=== PATIENT | male | born 1950 | race Caucasian/White ===

== ENCOUNTER 2021-08-31 19:45 | Inpatient (IN) ==
--- NOTE | 2021-08-31 21:09 | CT Scan Report ---
CT OF THE ABDOMEN AND PELVIS WITHOUT CONTRAST CLINICAL HISTORY: CHAPARRITA, SOB, hematuria COMPARISON STUDY: Renal ultrasound June 22, 2020. TECHNIQUE: Axial images of the abdomen and pelvis were obtained without IV contrast. Images were revi ewed in the axial, sagittal, and coronal planes. Automated exposure control was utilized for the ancelmo dy. A dose lowering technique was utilized adhering to the principles of ALARA. FINDINGS: Lung bases are unremarkable. A 7 mm proximal left ureteral calculus results in mild to mode rate left hydronephrosis. There is moderate left perinephric stranding. There is a punctate left uret eropelvic junction calculus. Left renal calculi measure up to 6 mm. A few punctate right renal calcul i are present. There are are no right ureteral calculi. There is no right hydronephrosis. Prostate is mildly enlarged, measuring 4.9 cm in transverse dimension. Evaluation of the remainder of the abdome n and pelvis is suboptimal as unenhanced exam. Hepatic steatosis is noted. A few hepatic lesions desirae ure water attenuation. The largest is a 5.4 cm segment 5 lesion. These favor cysts. The spleen, adren al glands and pancreas are unremarkable. The small left adrenal nodule is probably benign. There is n o biliary or pancreatic ductal dilatation. There is no evidence for a bowel obstruction. No acute fra cture or suspicious lesion is identified within the visualized skeletal structures. IMPRESSION: 1. 7 mm proximal left ureteral calculus which results in mild to moderate left hydronephrosis with pe rinephric stranding. Punctate left ureteropelvic junction calculus. 2. Bilateral nephrolithiasis. 3. Hepatic steatosis. Several suspected hepatic cysts. ACT 112: Negative or not required by law. Electronically signed by: Rudolph Eldridge M.D. 08/31/2021 9:07 PM
[2021-08-31 21:10] LABS: Influenza A virus by PCR Negative (Neg); Influenza B virus by PCR Negative (Neg); RSV by PCR Negative (Neg); SARS CoV2 RNA(COVID-19) InHosp NEGATIVE (Negative)
[2021-08-31] MEDS ORDERED: METOPROLOL TARTRATE 25 MG TAB PO STA (21:27)
[2021-08-31] MEDS ORDERED: ASPIRIN CHEW 324 MG PO STA (21:28)
[2021-08-31] MEDS ORDERED: Heparin IV Adult Wt-Based Standard *NO* Bolus Protocol ONE (21:46)
--- NOTE | 2021-08-31 22:03 | History & Physical Report ---
Date of Service August 31, 2021 Assessment & Plan (1) Atrial fibrillation with rapid ventricular response: (2) Hydronephrosis with renal and ureteral calculus obstruction: (3) CHAPARRITA (acute kidney injury): (4) CARRI (obstructive sleep apnea): (5) Hyperlipidemia: (6) Hypertension: (7) Pyelonephritis: Plan: 70 yo M Hx nephrolithiasis, CARRI, moderate , HTN, HLD admitted for pyelonephritis, CHAPARRITA, obstructive nephrolithiasis, and new-onset AFib with RVR. AFib with RVR: On presentation with HR tachycardic in low 100s, sensation of dyspnea. EKG in AFib with RVR. Echo performed in March 2021 with mildly dilated left atrium, normal LVEF, mild- moderate valvular disease. Given metoprolol 25mg PO x1 in ER. Lopressor q6h prn HR >120 ordered. Heparin gtt initiated; to be held several hours prior to Urology intervention. New onset, in the setting of pyelonephritis 2/2 obstructive renal calculus. Treatment of such outlined below. Patient's ultimate need for PO medications for AFib to be based upon if syndrome resolves with treatment of pyelonephritis. CHADsVASc score of 2. Suspect patient's sensation of dyspnea will improve with rate control. Patient is not hypoxic. Pyelonephritis, obstructive nephrolithiasis, CHAPARRITA: Evaluation by Urology office yesterday with elevated WBC count, CHAPARRITA. CTAP shows obstructive 7mm LEFT renal calculus with mild to moderate hydronephrosis and streaking suggestive of pyelonephritis. UCx from 08/30 growing gram negative bacilli, speciation to follow. Patient has grown E. coli sensitive to cephalosporins in previous urine cultures. Labwork from ER today is pending. Blood cultures ordered, will begin ceftriaxone 2g IV q24h once BCx collected. CHAPARRITA suspected to be post-renal considering obstructive LEFT renal calculus. Will give gentle IV fluids while NPO overnight. Tamsulosin daily. Holding chlorthalidone, amlodipine/benazepril, ibuprofen. Urology consulted and appreciate recommendations. NPO at midnight for possible intervention. Hypokalemia: K 3.4 on yesterday's labs. Given 40meq KCl PO in ER, will continue with 40meq daily until repleted. HTN: Continue amlodipine/benazepril, chlorthalidone. BP normotensive at this time. HLD: Continue atorvastatin. CARRI: CPAP qHS. Code Status: FULL CODE FEN: NPO at midnight, NSS at 100cc/hr x1 bag DVT ppx: Heparin gtt Dispo: Telemetry History of Present Illness Chief Complaint: chills, flank / abdominal pain, SOB Primary Care Provider: Diego Pan MD 70 yo M Hx nephrolithiasis, CARRI, moderate , HTN, HLD presented to the ER for chills and flank/abdominal pain as well as sensation of breathlessness. He was evaluated by Urology yesterday and had labwork and UCx ordered. In the ER patient was saturating well on room air, afebrile, tachycardic to low 100s. EKG showed AFib with RVR (no history of in the past). Labwork pending from ER visit, however notable from labwork 08/30/21 for WBC count of 16.83, K 3.4, creatinine 2.17 (baseline 1.0), UCx growing gram negative bacilli. CTAP showed 7 mm proximal left ureteral calculus with mild-moderate left hydronephrosis with perinephric stranding. Patient was given metoprolol 25mg PO and hospitalist service was consulted for admission. Patient at time of my interview denies flank or abdominal pain, chest pain, nausea or recent vomiting, diarrhea, measured fevers. He endorses some sensation of SOB with ambulation. He also notes some intermittent palpitations. Allergies Allergy/AdvReac Type Severity Reaction Status Date / Time No Known Allergies Allergy Unknown Verified 08/31/21 21:29 Home Medications Medication Instructions Recorded Confirmed Type glucosamine [id number] 1 tab PO QAM 02/19/19 08/31/21 History ellis 1,500 mg-400 unit-100 mg tablet (Osteo Bi-Flex (5-Loxin)) rydrospn-kwj-fgkav acid 0.4 1 tab PO QAM 02/19/19 08/31/21 History mg-lycopene 300 mcg-lutein 250 mcg tablet (Centrum Silver) omega-3 acid ethyl esters 1 gram 1 cap PO QAM cap 07/02/19 08/31/21 History capsule aspirin 81 mg chewable tablet 81 mg PO QAM 02/21/20 08/31/21 History tamsulosin 0.4 mg capsule (Flomax) 0.4 mg PO HS #90 cap 11/16/20 08/31/21 Rx atorvastatin 40 mg tablet 40 mg PO DAILY #90 tab 11/23/20 08/31/21 Rx amlodipine 10 mg-benazepril 40 mg 1 cap PO QAM #90 cap 01/25/21 08/31/21 Rx capsule (Lotrel) chlorthalidone 25 mg tablet 25 mg PO QAM #90 tab 05/11/21 08/31/21 Rx acetaminophen 500 mg tablet 1,000 mg PO Q6H PRN 08/31/21 08/31/21 History (Tylenol Extra Strength) ibuprofen 200 mg tablet 400 mg PO Q6H PRN 08/31/21 08/31/21 History Past Med/Surg History Medical History (Updated 09/01/21 @ 09:22 by Aaron Sloan MD) Aortic stenosis moderate (KATHRYN 1.43cm2, MG 23.9mmhg) per 02/2020 echo Apnea, sleep CPAP BPH (benign prostatic hyperplasia) Carotid artery stenosis Complex renal cyst per ultrasound, scheduled for repeat in 1 yr Hyperlipidemia Hypertension Irregular sleep-wake rhythm, nonorganic origin Morbid obesity Nocturnal hypoxemia Osteoarthritis 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 Other No family history of adverse response to anesthesia Denies family history of Ovarian cancer Prostate cancer Myocardial infarction Lung cancer Colorectal cancer Social History Smoking Status: Former smoker Tobacco Type: Cigarettes Age Started Using Tobacco: 14; Age Quit Using Tobacco: 38; packs per day: 1.5; Years Smoked: 24; Second Hand Exposure: No; Do You Dip or Chew Tobacco: No; Hx Alcohol Use: No Hx Substance Use: No Preferred Language: Yoruba Communication Ability: Effective Visual Impairment: Limited Hearing Ability: Normal Mail Order Clerk Required: Yes Beliefs That Will Affect Care: None marital status: Current Living Situation: Spouse current occupational status: retired How many Children do You have: 1 Other Information That Helps Us Care for You: No Feels Safe at Home: Yes Safety Concerns: Feels Safe At This Time Childhood Exposure to Second-Hand Smoke: Yes caffeine: Yes (1 cup of coffee daily ) Dental Care, Regularly: Yes Physical Activity Frequency: 3-4 Times per Week Physical Activity Frequency Comment: walks Seatbelt Use: always Sunscreen Use: No Assistive Devices: CPAP Review of Systems Review of Systems: All systems reviewed & are unremarkable except as noted in HPI & below Constitutional: + chills and + malaise; no fever Respiratory: + dyspnea; no cough Cardiovascular: + palpitations; no chest pain and no edema Gastrointestinal: no abdominal pain, no constipation and no diarrhea/loose stools Genitourinary: + difficulty urinating (reports difficulty starting stream last few days) Physical Exam Constitutional: WD/WN, vitals as above Eyes: PERRL, conjunctivae normal, anicteric sclerae ENMT: external ear and nose normal, oropharynx normal Neck: normal visual inspection Respiratory: normal respiratory effort, lungs clear to auscultation Cardiovascular: Rate/Rhythm: + tachycardic and + irregularly irregular Heart Sounds: + murmur (RUSB 2/6 murmur) Extremities: no edema Gastrointestinal (Abdomen): normal bowel sounds, soft, nontender, no hepatosplenomegaly Musculoskeletal: no cyanosis or clubbing, extremities motor strength 5/5 Skin: no rashes, warm and dry Neurologic: AAOx3, normal speech. Bilateral UE, LE, and face without sensory or motor deficits. No tremor. Psychiatric: A+Ox3, euthymic affect Results & Data Results & Data ([facility]) Vital Signs (Past 12 Hours) Vital Signs Temp Pulse Pulse Resp BP BP Pulse Ox 08/31/21 21:47 105 H 22 114/87 96 08/31/21 20:16 36.9 C 103 H 24 144/82 H 94 Code Status & VTE Plan VTE Prophylaxis Plan VTE Prophylaxis will be ordered: Yes Supervising Physician Co-Signing Physician Notes Attending addendum: I have physically seen this patient, have supervised the medical residents activities, and agree with the H&P unless as otherwise noted. Assessment and Plan: Atrial fibrillation with RVR- Telemetry admission Lopressor 5 mg IV every 6 hours as needed heart rate greater than 120 Heparin drip low-dose per protocol Likely associated with physiologic stress 7 mm proximal left ureteral calculus with moderate left hydronephrosis- N.p.o. Ceftriaxone 2 g IV daily Follow urine culture sensitivity Pain management Increase tamsulosin from 0.4 to 0.8 mg at bedtime Consult urology Remaining orders and notations as noted Resident Activity Tracking Resident Involvement: Resident Care Provided Care Provided: Adult Hospital Medicine (1) Hyperlipidemia Hyperlipidemia type: pure hypercholesterolemia Qualified Code(s): E78.00 - Pure hypercholesterolemia, unspecified; E78.0 - Pure hypercholesterolemia (2) Hypertension Hypertension type: essential hypertension Qualified Code(s): I10 - Essential (primary) hypertension
--- NOTE | 2021-08-31 22:08 | Emergency Department Note ---
Impression & Plan Atrial fibrillation with rapid ventricular response, Hematuria, New onset atrial fibrillation, Hydronephrosis with renal and ureteral calculus obstruction, CHAPARRITA (acute kidney injury) ED Provider Note CHIEF COMPLAINT: Shortness of breath, hematuria HISTORY OF PRESENT ILLNESS: This 70-year-old male patient presents to the emergency department with complaints of shortness of breath and hematuria. Patient states he developed some hematuria five or six days ago but it resolved within the last 48 hours. He noticed some left lower back discomfort that has been controlled with some Tylenol and ibuprofen. The patient has applied ice to the region and has not thought much of it. Patient did contact his urologist regarding hematuria and laboratory work and CAT scan was ordered. CAT scan is set for 2 days from now. Patient feels as though the shortness of breath has been progressive. He denies any fevers but states he does have chills and sweats. He denies any significant chest pain or coughing but states he has to stop with any exertion such as just walking to the bathroom. Patient denies any nausea or vomiting. He denies taking any blood thinners and denies any history of atrial fibrillation. REVIEW OF SYSTEMS: A review of systems was performed with positives and pertine nt negatives listed in the history of present illness. 10 systems were reviewed and are otherwise negative. ALLERGIES: see below MEDICATIONS: see below PMH: see below SOCIAL HISTORY: see below DDx: Reactive airway disease, pneumonia, pneumothorax, COPD, CHF, infections, cardiac ischemia, pulmonary embolism, musculoskeletal, gastrointestinal, kidney stone, UTI, renal mass as well as other pathologies. PHYSICAL EXAM: Vital signs reviewed. General: Well-appearing 70-year-old male, in no significant distress. HEENT: No scleral icterus, PERRLA, neck supple. Atraumatic. Cardiovascular: Irregular fairly rate controlled, no extra sounds.? Systolic ejection murmur Pulmonary: Clear to auscultation bilaterally, normal work of breathing. Abdomen: Soft, obese, nontender, nondistended, positive bowel sounds. Musculoskeletal: Atraumatic, no peripheral edema. Neurologic: Patient awake alert and oriented x 3, speech is clear Skin: Warm, dry, no rash EMERGENCY DEPARTMENT COURSE/MDM: This patient was evaluated and appeared to be in no significant distress. Patient was first seen in the waiting room as there was excessive volume and inpatient holds for the emergency department due to the COVID-19 pandemic. Patient was noted to have an irregular heartbeat on exam, EKG confirms new onset atrial fibrillation. Given that the patient was not in a position to be on the hall monitor, patient was given p.o. aspirin and metoprolol. CT imaging of the abdomen and pelvis was performed and reveals a 7 mm left ureteral calculus that is obstructing. This would explain the patient's elevated creatinine on laboratory work performed yesterday and hematuria. Patient will require hospitalization for new onset atrial fibrillation in addition to CHAPARRITA related to the obstructing stone. Patient's case was discussed with the hospitalist service who will evaluate the patient for admission and further management. Patient is aware of the plan and agrees. MONITORING: An order for cardiac monitoring was placed and the patient is noted to be in a atrial fibrillation at 105 beats per minute. RADIOLOGY: See below EKG: Atrial fibrillation at 96 bpm, PVC vs aberrantly conducted complexes. prolonged QT at 495. 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 Other No family history of adverse response to anesthesia Denies family history of Ovarian cancer Prostate cancer Myocardial infarction Lung cancer Colorectal cancer Social History Smoking Status: Former smoker Tobacco Type: Cigarettes Age Started Using Tobacco: 14; Age Quit Using Tobacco: 38; packs per day: 1.5; Years Smoked: 24; Second Hand Exposure: No; Hx Alcohol Use: Yes Alcohol type: wine Alcohol type Comment: 1-2 drinks weekly, "if that" Hx Substance Use: No Preferred Language: Turkish Communication Ability: Effective Visual Impairment: Limited Hearing Ability: Normal Musical String Maker Required: No Beliefs That Will Affect Care: None marital status: Current Living Situation: Significant Other current occupational status: retired How many Children do You have: 1 Feels Safe at Home: Yes Childhood Exposure to Second-Hand Smoke: Yes caffeine: Yes (1 cup of coffee daily ) Dental Care, Regularly: Yes Physical Activity Frequency: 3-4 Times per Week Physical Activity Frequency Comment: walks Seatbelt Use: always Sunscreen Use: No Assistive Devices: CPAP and Glasses Allergies Allergies Allergy/AdvReac Type Severity Reaction Status Date / Time No Known Allergies Allergy Unknown Verified 08/31/21 21:29 Home Meds Home Medications Medication Instructions Recorded Confirmed glucosamine [id number] 1 tab PO QAM 02/19/19 08/31/21 ellis 1,500 mg-400 unit-100 mg tablet (Osteo Bi-Flex (5-Loxin)) sryxtzoj-eus-lgkeo acid 0.4 1 tab PO QAM 02/19/19 08/31/21 mg-lycopene 300 mcg-lutein 250 mcg tablet (Centrum Silver) omega-3 acid ethyl esters 1 gram 1 cap PO QAM cap 07/02/19 08/31/21 capsule aspirin 81 mg chewable tablet 81 mg PO QAM 02/21/20 08/31/21 acetaminophen 500 mg tablet 1,000 mg PO Q6H PRN 08/31/21 08/31/21 (Tylenol Extra Strength) ibuprofen 200 mg tablet 400 mg PO Q6H PRN 08/31/21 08/31/21 Previous Rx's Medication Instructions Recorded tamsulosin 0.4 mg capsule (Flomax) 0.4 mg PO HS #90 cap 11/16/20 atorvastatin 40 mg tablet 40 mg PO DAILY #90 tab 11/23/20 amlodipine 10 mg-benazepril 40 mg 1 cap PO QAM #90 cap 01/25/21 capsule (Lotrel) chlorthalidone 25 mg tablet 25 mg PO QAM #90 tab 05/11/21 Results & Data (ED) Vital Signs Vital Signs - 24 hr 08/31/21 20:16 08/31/21 21:47 Temperature 36.9 C Temperature Source Temporal Artery Scan Pulse Rate 103 H Pulse Rate [Finger] 105 H Respiratory Rate 24 22 Blood Pressure 144/82 H Blood Pressure [Left Arm] 114/87 Blood Pressure Mean 102 Blood Pressure Mean [Left Arm] 96 Pulse Oximetry 94 96 Oxygen Delivery Method Room Air Sepsis Recent Fever Within 48 Hours No Sepsis New/Unexplained Change in Mental Status No Sepsis Action Taken by Nursing Adv Provider Notified Home Medications Current Medication List: was personally reviewed by me Laboratory Data Attestation: I reviewed the patient's lab results. Lab Results 08/31/21 Range/Units 20:21 SARS-CoV-2 (PCR) NEGATIVE (Negative) Influenza Type A (PCR) Negative (Neg) Influenza Type B (PCR) Negative (Neg) RSV (RT-PCR) Negative (Neg) Administered Medications Discontinued Medications Metoprolol Tartrate (Metoprolol Tartrate 25 Mg Tab) 25 mg PO NOW STA Stop: 08/31/21 21:28 Last Admin: 08/31/21 21:46 Dose: 25 mg Documented by: [id number] Imaging Data My Impression: Chest x-ray to my interpretation reveals mild pulmonary vascular congestion. Radiologist's Impression: Abdomen/Pelvis CT 08/31/21 20:39 CT OF THE ABDOMEN AND PELVIS WITHOUT CONTRAST CLINICAL HISTORY: CHAPARRITA, SOB, hematuria COMPARISON STUDY: Renal ultrasound June 22, 2020. TECHNIQUE: Axial images of the abdomen and pelvis were obtained without IV contrast. Images were reviewed in the axial, sagittal, and coronal planes. Automated exposure control was utilized for the study. A dose lowering technique was utilized adhering to the principles of ALARA. FINDINGS: Lung bases are unremarkable. A 7 mm proximal left ureteral calculus results in mild to moderate left hydronephrosis. There is moderate left perinephric stranding. There is a punctate left ureteropelvic junction calculus. Left renal calculi measure up to 6 mm. A few punctate right renal calculi are present. There are are no right ureteral calculi. There is no right hydronephrosis. Prostate is mildly enlarged, measuring 4.9 cm in transverse dimension. Evaluation of the remainder of the abdomen and pelvis is suboptimal as unenhanced exam. Hepatic steatosis is noted. A few hepatic lesions measure water attenuation. The largest is a 5.4 cm segment 5 lesion. These favor cysts. The spleen, adrenal glands and pancreas are unremarkable. The small left adrenal nodule is probably benign. There is no biliary or pancreatic ductal dilatation. There is no evidence for a bowel obstruction. No acute fracture or suspicious lesion is identified within the visualized skeletal structures. IMPRESSION: 1. 7 mm proximal left ureteral calculus which results in mild to moderate left hydronephrosis with perinephric stranding. Punctate left ureteropelvic junction calculus. 2. Bilateral nephrolithiasis. 3. Hepatic steatosis. Several suspected hepatic cysts. ACT 112: Negative or not required by law. Electronically signed by: Rudolph Eldridge M.D. 08/31/2021 9:07 PM Blood Pressure Blood Pressure Findings: Elevated blood pressure Blood Pressure Disposition: further management by hospitalist Discharge Plan Visit Data Chief Complaint: Shortness of Breath/Dyspnea Stated Complaint: SOB, CHILLS, LOW OXYGEN ED Provider: Mariajose Ro Discharge Problem: Atrial fibrillation with rapid ventricular response, Hematuria, New onset atrial fibrillation, Hydronephrosis with renal and ureteral calculus obstruction, CHAPARRITA (acute kidney injury) Patient Disposition: Admitted As Inpatient Forms Stand Alone Forms: [facility] Prescriptions Prescriptions: No Action tamsulosin [Flomax] 0.4 mg capsule 0.4 mg PO HS Qty: 90 RF: 3 atorvastatin 40 mg tablet 40 mg PO DAILY Qty: 90 RF: 3 amlodipine-benazepril [Lotrel] 10-40 mg capsule 1 cap PO QAM Qty: 90 RF: 3 chlorthalidone 25 mg tablet 25 mg PO QAM Qty: 90 RF: 3 Centrum Silver 0.4-300-250 mg-mcg-mcg tablet 1 tab PO QAM RF: 0 hiialkmjjvj-H2-Xidunltuj serr [Osteo Bi-Flex (5-Loxin)] 1,500-400-100 mg-unit-mg tablet 1 tab PO QAM RF: 0 omega-3 acid ethyl esters 1 gram capsule 1 cap PO QAM RF: 0 aspirin 81 mg Tablet,Chewable 81 mg PO QAM RF: 0 acetaminophen [Tylenol Extra Strength] 500 mg Tablet 1,000 mg PO Q6H PRN (Reason: FEVER/PAIN) RF: 0 ibuprofen 200 mg Tablet 400 mg PO Q6H PRN (Reason: FEVER/PAIN) RF: 0 Referrals Referrals: Diego Pan MD [Primary Care Provider] - Discharge Problem: Hematuria Qualifiers: Hematuria type: gross Qualified Code(s): R31.0 - Gross hematuria
[2021-08-31] MEDS ORDERED: SODIUM CHLORIDE 0.9% 1000ML 1,000 ML IV ONE (22:11)
[2021-08-31] MEDS ORDERED: cefTRIAXone SODIUM 2,000 MG in DEXTROSE 5% 50 ML IV SCH (22:15)
[2021-08-31] MEDS ORDERED: METOPROLOL TARTRATE 1 MG/ML VIAL IV PRN (22:16)
[2021-08-31] MEDS ORDERED: POTASSIUM CHLORIDE CRTAB 20 MEQ TABCR PO STA (22:16)
[2021-08-31] MEDS ORDERED: cefTRIAXone SODIUM 2000MG/70ML D5W IV STA (22:31)
[2021-08-31] MEDS: SODIUM CHLORIDE 0.9% 1000ML 1,000 ML IV SCH (22:56)
[2021-08-31 23:05] LABS: Hematocrit (blood only) 37.2 % (42-52); Hemoglobin 12.5 g/dL (14.0-18.0); Mean Corpuscular Hemoglobin 28.6 pg (25-34); Mean Corpuscular Hgb Conc 33.6 g/dL (32-36); Mean Corpuscular Volume 85.1 fL (80-100); Mean Platelet Volume 11.3 fL (7.4-10.4); Platelet Count 162 K/uL (130-400); RDW Coefficient of Variation 15.2 % (11.5-14.5); RDW Standard Deviation 47.6 fL (36.4-46.3); Red Blood Count 4.37 M/uL (4.7-6.1); White Blood Count 14.58 K/uL (4.8-10.8)
[2021-08-31 23:23] LABS: Albumin Level 2.6 gm/dl (3.4-5.0); BUN Creatinine Ratio 17.1 (10-20); Calcium 8.8 mg/dl (8.5-10.1); Creatinine Clr Calc Pharmacy 33.1 ml/min; Est GFR (African American) 25.2 ml/min; Est GFR (Non-African American) 21.7 ml/min; Potassium 3.2 mmol/L (3.5-5.1)
[2021-08-31 23:25] LABS: Partial Thromboplastin Ratio 1.4; Partial Thromboplastin Time 36.7 Seconds (21.0-31.0)
[2021-08-31 23:26] LABS: Albumin Globulin Ratio 0.6 (0.9-2); Bilirubin,Total 0.6 mg/dl (0.2-1); Globulin 4.1 gm/dl (2.5-4.0); Total Protein 6.7 gm/dl (6.4-8.2)
[2021-08-31 23:31] LABS: Basophils # (auto) 0.01 K/uL (0-0.2); Basophils % (auto) 0.1 %; Echinocytes 1+; Eosinophils # (auto) 0.01 K/uL (0-0.5); Eosinophils % (auto) 0.1 %; Immature Granulocytes # (auto) 0.67 K/uL (0.00-0.02); Immature Granulocytes % (auto) 4.6 %; Lymphocytes # (auto) 0.25 K/uL (1.2-3.4); Lymphocytes % (auto) 1.7 %; Monocytes # (auto) 0.45 K/uL (0.11-0.59); Monocytes % (auto) 3.1 %; Neutrophils # (auto) 13.19 K/uL (1.4-6.5); Neutrophils % (auto) 90.4 %; Toxic Vacuolation 1+
[2021-08-31] MEDS ORDERED: ACETAMINOPHEN 325 MG TAB PO STA (23:43)
[2021-08-31] MEDS: HEPARIN SODIUM/DEXTROSE 25,000 UNITS/500 ML BAG IV SCH (23:48)
[2021-09-01 02:03] LABS: Magnesium 1.7 mg/dl (1.8-2.4)
[2021-09-01] MEDS: MAGNESIUM SULFATE / D5W 1 GM/100 ML BAG IV SCH ×2 (04:27→07:17)
[2021-09-01 05:29] LABS: Hematocrit (blood only) 35.9 % (42-52); Hemoglobin 11.8 g/dL (14.0-18.0); Mean Corpuscular Hemoglobin 28.4 pg (25-34); Mean Corpuscular Hgb Conc 32.9 g/dL (32-36); Mean Corpuscular Volume 86.3 fL (80-100); Mean Platelet Volume 12.1 fL (7.4-10.4); Platelet Count 162 K/uL (130-400); RDW Coefficient of Variation 15.4 % (11.5-14.5); RDW Standard Deviation 49.6 fL (36.4-46.3); Red Blood Count 4.16 M/uL (4.7-6.1); White Blood Count 13.69 K/uL (4.8-10.8)
[2021-09-01 05:41] LABS: Appearance Urine Cloudy (Clear); Bacteria Urine Automated Negative (Negative); Blood Urine Negative (Negative); Color Urine Dark Yellow; Glucose Urine UA Negative (Negative); Ketones Urine Trace (Negative); Leukocyte Esterase Urine 1+ (Negative); Nitrite Urine Negative (Negative); Protein Urine Trace (Negative); Specific Gravity Urine 1.023 (1.000-1.030); Urobilinogen Urine Negative (Negative)
[2021-09-01 05:52] LABS: ALC (manual) 0.25 K/uL (1.2-3.4); ANC (manual) 12.59 K/uL (1.4-6.5); Basophils # (manual) 0.12 K/uL (0-0.2); Basophils % (manual) 0.9 %; Dohle Bodies 1+; Echinocytes 1+; Eosinophils # (manual) 0.12 K/uL (0-0.5); Eosinophils % (manual) 0.9 %; Lymphocytes # (manual) 0.25 K/uL (1.2-3.4); Lymphocytes % (manual) 1.8 %; Monocytes # (manual) 0.48 K/uL (0.11-0.59); Monocytes % (manual) 3.5 %; Myelocytes # (manual) 0.12 K/uL (0-0); Myelocytes % (manual) 0.9 %; Neutrophils # (manual) 12.59 K/uL (1.4-6.5); Toxic Vacuolation 1+
[2021-09-01 05:54] LABS: Partial Thromboplastin Ratio 2.2
[2021-09-01 06:02] LABS: BUN Creatinine Ratio 18.1 (10-20); Calcium 8.4 mg/dl (8.5-10.1); Creatinine Clr Calc Pharmacy 33.1 ml/min; Est GFR (African American) 25.2 ml/min; Est GFR (Non-African American) 21.7 ml/min; Potassium 3.4 mmol/L (3.5-5.1)
[2021-09-01 06:12] LABS: Bilirubin Urine 1+ (Negative)
[2021-09-01 06:19] LABS: RBC Urine Automated 0-4 /hpf (0-4)
[2021-09-01 06:27] LABS: Partial Thromboplastin Time 56.6 Seconds (21.0-31.0)
--- NOTE | 2021-09-01 07:00 | Hospitalist Progress Note ---
Date of Service September 01, 2021 Assessment & Plan (1) Atrial fibrillation with rapid ventricular response: (2) Hydronephrosis with renal and ureteral calculus obstruction: (3) CHAPARRITA (acute kidney injury): (4) CARRI (obstructive sleep apnea): (5) Hyperlipidemia: (6) Hypertension: (7) Pyelonephritis: Plan: 70 yo M Hx nephrolithiasis, CARRI, moderate , HTN, HLD admitted for pyelonephritis, CHAPARRITA, obstructive nephrolithiasis, and new-onset AFib with RVR. AFib with RVR: - On presentation with HR tachycardic in low 100s, sensation of dyspnea. - Initial EKG in AFib with RVR -- - Given metoprolol 25mg PO x1 in ER, which resolved episode - Heparin gtt initiated on admission - Lopressor PRN - Subsequently in OR had another episode of afib with RVR -- given lopressor 5mg IV x1 and converted back to NSR - Cardiology consulted due to repeat episodes -- likely this is secondary to obstructing renal calculus with pyelonephritis. Patient has never had this before. - Echo performed in March 2021 with mildly dilated left atrium, normal LVEF, mild-moderate valvular disease. - Patient's ultimate need for PO medications for AFib to be based upon if syndrome resolves with treatment of pyelonephritis. CHADsVASc score of 2. Urosepsis -CTAP shows obstructive 7mm LEFT renal calculus with mild to moderate hydronephrosis and streaking suggestive of pyelonephritis. - UCx from 08/30 growing E. coli resistant only to ampicillin and Unasyn - Blood cultures growing gram negative bacilli -- further speciation and sensitivities pending - Continue CTX 2g IV q24h - Continue gentle IVF, monitor fluid status (last Echo with normal LVEF as above) - Tamsulosin daily - Holding chlorthalidone, amlodipine/benazepril, ibuprofen - Urology consulted: - recommended cystoscopy and left ureteral stent placement - his right kidney appears unobstructed. I would expect this kidney could function normally and would not expect an obstructive process to be contributing to his CHAPARRITA - Further evaluation during cystoscopy for stent placement will assess the bladder and the prostate. - If it appears that he is retaining urine, will potentially recommend Stern catheter placement. - Stent placed in OR by urology - Stern placed after procedure -- draining dark yellow urine - Monitor BMP Hypokalemia: - Potassium trending up but still mildly decreased - Will continue with 40meq daily until repleted HTN: - Hold amlodipine/benazepril, chlorthalidone - BP normotensive at this time HLD: - Continue atorvastatin CARRI: - CPAP qHS Code Status: FULL CODE FEN: NPO pending urologic procedure, NSS at 100cc/hr until stent placed DVT ppx: Heparin gtt Dispo: Telemetry Admission and Anticipated Discharge Date Admission Date: August 31, 2021 Supervising Physician Co-Signing Physician Notes I also saw the patient confirmed chaudhary portions of the history and the physical examination. Agree with the impression and plan as noted in the resident documentation. Upon examination midafternoon the patient is status post urologic stent placement. He does have a foreign body sensation creating the feeling as if he needs to urinate, but otherwise he has no complaints. He is afebrile and hemodynamically stable. Exam 105/72, 91, 20, 36.6, 92% on room air Pleasant alert. No distress appreciated. Heart is somewhat irregular; cannot discern upon auscultation if this is a sinus arrhythmia or a rate controlled atrial fibrillation (it is difficult to discern P waves on telemetry has well) Lungs are clear with nonlabored respirations Data WBC 13.69, hemoglobin 11.8 Sodium 132, potassium 3.4, BUN 50, creatinine 2.78 2/2 blood cultures drawn 08/31/2021 growing gram-negative bacilli Urine culture dated 08/30/2021 showing E. coli Sepsis (POA)/urosepsis Acute renal failure Continue ceftriaxone Appreciate urology consultation Continue IV fluids and monitor BMP Atrial fibrillation with rapid ventricular response He was started on a heparin drip which he remains on My suspicion is atrial fibrillation was secondary to the infection; patient reports no previous history of atrial fibrillation We will get EKG now to confirm this is a sinus with PACs/PVCs, rather than a rate controlled atrial fibrillation Continue to monitor on telemetry If no recurrence of atrial fibrillation, consider discontinuation of heparin Subjective Seen at bedside this AM. Patient reports intermittent SOB when laying flat, due to feeling congested. He is satting well on room air and not SOB during my conversation with him and does not cough while I am there. Informs me urology has left the room shortly before my arrival and informed him of plan for stent. No other symptoms at this time. No fever, chills, n/v, abd pain, back pain, SOB, cough, CP, palp. Seen again post-procedure and endorses feeling well without complaints. Review of Systems Review of Systems: per HPI Physical Exam Physical Exam: GENERAL: A&Ox3. NAD. CHEST/LUNGS: CTAB A/P. No crackles, wheezes, rales, rhonchi. HEART: RRR. No m/g/r. No carotid bruits. ABDOMEN: NT/ND, soft. BS+ x4 EXTREMITIES: No cyanosis, no clubbing, no edema SKIN: Warm and dry. No rashes or lesions. PSYCHIATRIC: Euthymic affect, no SI, no pressured speech, no hallucinations NEUROLOGIC: No FND. CN II-XII grossly intact. Results & Data Results & Data ([facility]) Vital Signs (Past 12 Hours) Vital Signs Temp Pulse Pulse Resp BP BP Pulse Ox 09/01/21 06:00 77 26 H 131/104 H 91 09/01/21 05:00 87 21 93 09/01/21 04:01 83 30 H 139/81 93 09/01/21 04:00 97 H 22 92 09/01/21 03:00 82 29 H 131/104 H 94 09/01/21 02:01 79 25 H 116/60 90 09/01/21 02:00 83 24 114/73 94 09/01/21 01:01 76 30 H 128/83 93 09/01/21 01:00 76 33 H 94 09/01/21 00:47 36.8 C 86 16 123/74 94 09/01/21 00:36 91 H 15 123/74 09/01/21 00:33 36.6 C 83 20 123/74 95 09/01/21 00:16 79 29 H 105/66 94 09/01/21 00:05 81 30 H 105/66 95 09/01/21 00:01 77 27 H 141/104 H 94 09/01/21 00:00 82 26 H 94 08/31/21 23:01 86 23 109/68 95 08/31/21 23:00 88 92 H 25 H 114/73 95 08/31/21 22:36 88 32 H 95 08/31/21 21:47 105 H 22 114/87 96 08/31/21 20:16 36.9 C 103 H 24 144/82 H 94 Resident Activity Tracking Resident Involvement: Resident Care Provided Care Provided: Adult Hospital Medicine (1) Hyperlipidemia Hyperlipidemia type: pure hypercholesterolemia Qualified Code(s): E78.00 - Pure hypercholesterolemia, unspecified; E78.0 - Pure hypercholesterolemia (2) Hypertension Hypertension type: essential hypertension Qualified Code(s): I10 - Essential (primary) hypertension
[2021-09-01] MEDS ORDERED: ACETAMINOPHEN 325 MG TAB PO STA (07:37)
[2021-09-01] MEDS ORDERED: ACETAMINOPHEN 325 MG TAB ONE (07:41)
[2021-09-01] MEDS: ASPIRIN 81 MG ECTAB PO SCH (07:43)
--- NOTE | 2021-09-01 08:11 | XRay Report ---
XR chest 1V portable CLINICAL HISTORY: Shortness of breath. COMPARISON STUDY: Chest radiograph February 25, 2020. FINDINGS: Lung volumes are normal. There is apparent right midlung opacity. There is no pneumothorax or pleural effusion. Cardiac size is stable. Mediastinal contours are normal. There is no evidence fo r pulmonary edema. IMPRESSION: Asymmetric increased attenuation within the lateral right midlung. This could reflect ai rspace disease or artifact. Radiographic follow up is recommended. ACT 112: Negative or not required by law. Electronically signed by: Rudolph Eldridge M.D. 09/01/2021 8:10 AM
[2021-09-01] MEDS ORDERED: PROPOFOL IV EMULSION 10 MG/ML 20 ML VIAL IV ONE (08:41)
[2021-09-01] MEDS ORDERED: LIDOCAINE 2% 2 ML VIAL/AMP(20MG/ML) INFIL ONE (08:41)
--- NOTE | 2021-09-01 08:41 | Urology Consultation ---
Date of Consultation September 01, 2021 Assessment & Plan (1) Pyelonephritis: (2) Hydronephrosis with renal and ureteral calculus obstruction: We discussed his ureteral stone. I would estimate that a 7 mm stone has about a 30% chance of spontaneous passage. In the setting of suspected urinary tract infection, especially with his systemic symptoms, I recommended cystoscopy and left ureteral stent placement to maximize drainage of the upper tracts. We discussed the risks and benefits of this procedure. Specifically discussed risk of bleeding, infection, injury to the urinary tract, inability to place the stent and need for future stone treatment. Expressed understanding would like to proceed with stent placement. (3) CHAPARRITA (acute kidney injury): On the recent CT scan, his right kidney appears unobstructed. I would expect this kidney could function normally and would not expect an obstructive process to be contributing to his CHAPARRITA. Further evaluation during cystoscopy for stent placement will assess the bladder and the prostate. If it appears that he is retaining urine, will potentially recommend Stern catheter placement. Is unclear the degree to which his stone is contributing to his shortness of breath or his A. fib with RVR. If there is an obstructed infection in the left kidney, hopefully providing drainage will allow stabilization and improvement in these other conditions. Plan: Continue n.p.o. OR for Cystoscopy, left retrograde pyelogram and left ureteral stent placement Continue antibiotics, tailor per urine culture. History of Present Illness Reason for Consultation: Left ureteral stone, pyelonephritis Attending Physician: Jame Del Real DO History of Present Illness This is a 70-year-old male with no prior history of kidney stones who was previously seen in the urology office for a history of squamous cell carcinoma of the penis, and has undergone Mohs surgery for this. He presented to the hospital on 08/31/2021 with chills and sweats and overall weakness, and was admitted for monitoring and treatment. He was found to be in A. fib with RVR, and also was noted to have progressive shortness of breath. A CT scan was performed which demonstrated a 7 mm stone in the left ureter with associated left-sided hydronephrosis. Urology was consulted for management of his stone. He reports that he has never had stones in the past, and has never needed surgery on the urinary tract other than the Moh's surgery for his penile cancer. He reports intermittent left-sided flank pain, but he has been managing this pretty well with Tylenol. He reports a history of urinary tract infection in the past, associated with burning and dysuria. He does not have any back currently, but does note fatigue, sweats and chills. I independently reviewed his lab results During the hospitalization, he has a worsening CHAPARRITA (most recent creatinine 2.7) He has mild leukocytosis (WBC 13, has been trending down) Urinalysis from 09/01 negative for nitrites, 1+ leuk esterase, 10-30 WBC/hpf I independently reviewed his CT scan from 08/31. Radiology read of CT scan:IMPRESSION: 1. 7 mm proximal left ureteral calculus which results in mild to moderate left hydronephrosis with perinephric stranding. Punctate left ureteropelvic junction calculus. 2. Bilateral nephrolithiasis. 3. Hepatic steatosis. Several suspected hepatic cysts. Allergies Allergy/AdvReac Type Severity Reaction Status Date / Time No Known Allergies Allergy Unknown Verified 08/31/21 21:29 Home Medications Medication Instructions Recorded Confirmed Type glucosamine [id number] 1 tab PO QAM 02/19/19 08/31/21 History ellis 1,500 mg-400 unit-100 mg tablet (Osteo Bi-Flex (5-Loxin)) izxdcehk-abi-viebb acid 0.4 1 tab PO QAM 02/19/19 08/31/21 History mg-lycopene 300 mcg-lutein 250 mcg tablet (Centrum Silver) omega-3 acid ethyl esters 1 gram 1 cap PO QAM cap 07/02/19 08/31/21 History capsule aspirin 81 mg chewable tablet 81 mg PO QAM 02/21/20 08/31/21 History tamsulosin 0.4 mg capsule (Flomax) 0.4 mg PO HS #90 cap 11/16/20 08/31/21 Rx atorvastatin 40 mg tablet 40 mg PO DAILY #90 tab 11/23/20 08/31/21 Rx amlodipine 10 mg-benazepril 40 mg 1 cap PO QAM #90 cap 01/25/21 08/31/21 Rx capsule (Lotrel) chlorthalidone 25 mg tablet 25 mg PO QAM #90 tab 05/11/21 08/31/21 Rx acetaminophen 500 mg tablet 1,000 mg PO Q6H PRN 08/31/21 08/31/21 History (Tylenol Extra Strength) ibuprofen 200 mg tablet 400 mg PO Q6H PRN 08/31/21 08/31/21 History Patient History Medical History Aortic stenosis moderate (KATHRYN 1.43cm2, MG 23.9mmhg) per 02/2020 echo Apnea, sleep CPAP BPH (benign prostatic hyperplasia) Carotid artery stenosis Complex renal cyst per ultrasound, scheduled for repeat in 1 yr Hyperlipidemia Hypertension Irregular sleep-wake rhythm, nonorganic origin Morbid obesity BMI 40.8 Nocturnal hypoxemia Osteoarthritis 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 Other No family history of adverse response to anesthesia Denies family history of Ovarian cancer Prostate cancer Myocardial infarction Lung cancer Colorectal cancer Social History Smoking Status: Former smoker Tobacco Type: Cigarettes Age Started Using Tobacco: 14; Age Quit Using Tobacco: 38; packs per day: 1.5; Years Smoked: 24; Second Hand Exposure: No; Do You Dip or Chew Tobacco: No; Hx Alcohol Use: No Hx Substance Use: No Preferred Language: Swazi Communication Ability: Effective Visual Impairment: Limited Hearing Ability: Normal Sexual Assault Counselor Required: Yes Beliefs That Will Affect Care: None marital status: Current Living Situation: Spouse current occupational status: retired How many Children do You have: 1 Other Information That Helps Us Care for You: No Feels Safe at Home: Yes Safety Concerns: Feels Safe At This Time Childhood Exposure to Second-Hand Smoke: Yes caffeine: Yes (1 cup of coffee daily ) Dental Care, Regularly: Yes Physical Activity Frequency: 3-4 Times per Week Physical Activity Frequency Comment: walks Seatbelt Use: always Sunscreen Use: No Assistive Devices: CPAP and Glasses Review of Systems Review of Systems: 10 point review of systems negative except where documented in HPI Physical Exam Constitutional: well developed and well nourished; no acute distress Eyes: + anicteric sclerae; pupils not irregular Respiratory: normal respiratory effort (Intermittent shortness of breath) Cardiovascular: Irregularly irregular, on telemetry Gastrointestinal (Abdomen): Inspection/Auscultation: abdomen normal to inspection; abdomen not distended Musculoskeletal: Extremities: extremities normal to inspection Skin: normal turgor; no rashes and no lesions Neurologic: moves all extremities and awake Psychiatric: Orientation: alert and oriented x 3 Results & Data ([facility]) Vital Signs (Past 12 Hours) Vital Signs Temp Pulse Pulse Resp BP BP Pulse Ox 09/01/21 08:00 87 09/01/21 07:44 36.6 C 84 18 133/84 93 09/01/21 06:00 77 26 H 131/104 H 91 09/01/21 05:00 87 21 93 09/01/21 04:01 83 30 H 139/81 93 09/01/21 04:00 97 H 22 92 09/01/21 03:00 82 29 H 131/104 H 94 09/01/21 02:01 79 25 H 116/60 90 09/01/21 02:00 83 24 114/73 94 09/01/21 01:01 76 30 H 128/83 93 09/01/21 01:00 76 33 H 94 09/01/21 00:47 36.8 C 86 16 123/74 94 09/01/21 00:36 91 H 15 123/74 09/01/21 00:33 36.6 C 83 20 123/74 95 09/01/21 00:16 79 29 H 105/66 94 09/01/21 00:05 81 30 H 105/66 95 09/01/21 00:01 77 27 H 141/104 H 94 09/01/21 00:00 82 26 H 94 08/31/21 23:01 86 23 109/68 95 08/31/21 23:00 88 92 H 25 H 114/73 95 08/31/21 22:36 88 32 H 95 08/31/21 21:47 105 H 22 114/87 96 PG Care Time/CCT Total # of Minutes Spent Total Time Spent with Patient: Total time spent is greater than 50% in coordination of care (as documented) at patient's floor/unit and/or counseling patient: Coding Level of Care Code 12748 Initial Inpt Care Lvl 3 Diagnoses Pyelonephritis N12 Hydronephrosis with renal and ureteral calculus obstruction N13.2 CHAPARRITA (acute kidney injury) N17.9
[2021-09-01] MEDS ORDERED: fentaNYL citrate 100 MCG/2 ML VIAL ONE (08:42)
[2021-09-01] MEDS ORDERED: MIDAZOLAM HCL 1 MG/ML 2ML VIAL ONE (08:42)
[2021-09-01] MEDS ORDERED: POTASSIUM CHLORIDE CRTAB 20 MEQ TABCR PO SCH (09:00)
--- NOTE | 2021-09-01 09:02 | XRay Report ---
XR chest 1V portable CLINICAL HISTORY: wheezing COMPARISON STUDY: Chest radiograph August 31, 2021. FINDINGS: Lung volumes are normal. There is no pneumothorax or pleural effusion. There is mild enlarg ement of the cardiac silhouette. Subtle interstitial prominence is noted. No evidence for overt pulmo nary edema or pneumonia. IMPRESSION: Subtle interstitial prominence. This may reflect pulmonary vascular congestion or an an i nfectious process. ACT 112: Negative or not required by law. Electronically signed by: Rudolph Eldridge M.D. 09/01/2021 9:00 AM
[2021-09-01] MEDS: SODIUM CHLORIDE 0.9% 1000ML 1,000 ML IV SCH (09:14)
--- NOTE | 2021-09-01 09:27 | Anesthesiology Consultation ---
Date of Service September 01, 2021 Assessment & Plan (1) Encounter for pre-operative examination: Chart Review Chart Review: Acceptable Risk for Surgery (urgent procedure) History Surgery Operation Date: 09/01/21 13:20 Proposed Procedures p Cystoscopy, Left Stent Placement - James Torres MD Height/Weight Height: 5 ft 10 in Weight: 133.6 kg Allergies Allergy/AdvReac Type Severity Reaction Status Date / Time No Known Allergies Allergy Unknown Verified 08/31/21 21:29 Medications Home Medications Medication Instructions Recorded Confirmed Last Taken glucosamine KCm-E2-Ewpqplnfx 1 tab PO QAM 02/19/19 08/31/21 08/31/21 ellis 1,500 mg-400 unit-100 mg tablet (Osteo Bi-Flex (5-Loxin)) mhjmnvmp-yrg-kohbw acid 0.4 1 tab PO QAM 02/19/19 08/31/21 08/31/21 mg-lycopene 300 mcg-lutein 250 mcg tablet (Centrum Silver) omega-3 acid ethyl esters 1 gram 1 cap PO QAM cap 07/02/19 08/31/21 08/31/21 capsule aspirin 81 mg chewable tablet 81 mg PO QAM 02/21/20 08/31/21 08/31/21 tamsulosin 0.4 mg capsule (Flomax) 0.4 mg PO HS #90 cap 11/16/20 08/31/21 08/30/21 atorvastatin 40 mg tablet 40 mg PO DAILY #90 tab 11/23/20 08/31/21 08/31/21 amlodipine 10 mg-benazepril 40 mg 1 cap PO QAM #90 cap 01/25/21 08/31/21 08/31/21 capsule (Lotrel) chlorthalidone 25 mg tablet 25 mg PO QAM #90 tab 05/11/21 08/31/21 08/31/21 acetaminophen 500 mg tablet 1,000 mg PO Q6H PRN 08/31/21 08/31/21 Unknown (Tylenol Extra Strength) ibuprofen 200 mg tablet 400 mg PO Q6H PRN 08/31/21 08/31/21 Unknown Active Medications Generic Name Dose Route Start Last Admin Trade Name Freq PRN Reason Stop Dose Admin Aspirin 81 mg 09/01/21 09:00 09/01/21 07:43 Aspirin 81 Mg Ectab PO 10/01/21 08:59 81 mg QAM CLAUDIA Administration Heparin Sodium/Dextrose 25,000 units in 500 mls @ 35 mls/hr 08/31/21 22:00 09/01/21 07:02 Heparin Sodium/Dextrose IV 09/30/21 21:59 1,750 units/hr .[id number] CLAUDIA 35 mls/hr Titration Protocol 1,750 UNITS/HR Sodium Chloride 1,000 mls @ 100 mls/hr 08/31/21 21:46 09/01/21 09:14 Nss 1000ml IV 09/01/21 17:45 100 mls/hr .Q10H CLAUDIA Administration Potassium Chloride 40 meq 09/01/21 09:00 09/01/21 07:43 Potassium Chloride Crtab 20 Meq Tabcr PO 10/01/21 08:59 40 meq QAM CLAUDIA Administration Past Medical History Medical History (Updated 09/01/21 @ 09:22 by Aaron Sloan MD) Aortic stenosis moderate (KATHRYN 1.43cm2, MG 23.9mmhg) per 02/2020 echo Apnea, sleep CPAP BPH (benign prostatic hyperplasia) Carotid artery stenosis Complex renal cyst per ultrasound, scheduled for repeat in 1 yr Hyperlipidemia Hypertension Irregular sleep-wake rhythm, nonorganic origin Morbid obesity Nocturnal hypoxemia Osteoarthritis 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 Other No family history of adverse response to anesthesia Denies family history of Ovarian cancer Prostate cancer Myocardial infarction Lung cancer Colorectal cancer Past Surgical History Surgical History History of arthroscopic knee surgery left knee History of biopsy (~03/02/20) penile excisional biopsy--showed squamous cell carcinoma History of colonoscopy with polypectomy History of tooth extraction History of vasectomy Ruptured, tendon, quadriceps right knee with repair Social History Smoking Status: Former smoker tobacco type: cigarettes Do You Dip or Chew Tobacco: No Hx Alcohol Use: No Alcohol type: wine and hard liquor alcohol intake frequency: a few times a week Hx Substance Use: No substance use type: does not use Physical Exam Vital Signs Last Vital Signs Temp 36.6 C 09/01/21 07:44 Pulse 87 12/29/21 08:00 Resp 18 09/01/21 07:44 BP 133/84 09/01/21 07:44 Pulse Ox 93 09/01/21 07:44 Testing Laboratory Results 09/01/21 04:58 09/01/21 04:58 APTT 56.6 Seconds (21.0-31.0) H* 09/01/21 04:58 Urine Color Dark Yellow 09/01/21 Unknown Urine Appearance Cloudy (Clear) A 09/01/21 Unknown Urine pH 5.0 (4.5-7.5) 09/01/21 Unknown Ur Specific [place] 1.023 (1.000-1.030) 09/01/21 Unknown Urine Protein Trace (Negative) H 09/01/21 Unknown Urine Glucose (UA) Negative (Negative) 09/01/21 Unknown Urine Ketones Trace (Negative) H 09/01/21 Unknown Urine Nitrite Negative (Negative) 09/01/21 Unknown Ur Leukocyte Esterase 1+ (Negative) H 09/01/21 Unknown Urine WBC (Auto) 10-30 /hpf (0-5) H 09/01/21 Unknown Urine RBC (Auto) 0-4 /hpf (0-4) 09/01/21 Unknown U Hyaline Cast (Auto) 10-30 /lpf (0-5) H 09/01/21 Unknown U Epithel Cells (Auto) 5-10 /lpf (0-5) H 09/01/21 Unknown Urine Bacteria (Auto) Negative (Negative) 09/01/21 Unknown Electrocardiogram Date: 09/01/21 Findings: + NSR @ (90) 1st degree AV block Chest X-Ray Date: 09/01/21 Findings: + pulmonary vascular congestion (possible) subtle interstitial prominence Echocardiogram Date: 03/15/21 EF: 60-65% LV Function: normal Valvular Disease: + (moderate - max pressure grad 41mmHg), + AI (mild) and + MR (mild to moderate)
[2021-09-01] MEDS ORDERED: SODIUM CHLORIDE 0.9% INJ 10 ML VIAL ONE (10:48)
[2021-09-01] MEDS ORDERED: DIATRIZOATE MEGLUMINE 30% 100ML VIAL INSTIL ONE (11:14)
--- NOTE | 2021-09-01 11:20 | Electrocardiogram Report ---
Test Reason : Blood Pressure : / mmHG Vent. Rate : 090 BPM Atrial Rate : 093 BPM P-R Int : 216 ms QRS Dur : 092 ms QT Int : 382 ms P-R-T Axes : 083 024 023 degrees QTc Int : 467 ms Sinus rhythm with 1st degree A-V block with Premature atrial complexes (some consecutive) with Aberr ant conduction Otherwise normal ECG When compared with ECG of 25-FEB-2020 14:32, Aberrant conduction is now Present QT has lengthened Confirmed by Jm Be [id number] on 09/01/2021 11:20:22 AM Referred By: Johnny Wayne Confirmed By:Leno Be
--- NOTE | 2021-09-01 11:21 | Operative Report ---
PG Post Operative Report Pre & Post Diagnosis Operation Date: 09/01/21 13:20 Pre-Op Diagnosis: Obstructive Nephrolithasis, Urinary Tract Infection Post-Op Diagnosis: Obstructive Nephrolithasis, Urinary Tract Infection I identified the patient and participated in the time-out.: Yes Procedure Operation Date: 09/01/21 13:20 Actual Procedures p Cystoscopy, Left Stent Placement(Left) - James Torres MD Surgeon James Torres MD Bus Matron none Estimated Blood Loss 5 Findings Consistent with Post-Op Diagnosis Specimens Urine from left kidney for culture Drains 6 Colombian by 26 cm double-J ureteral stent in the left ureter Anesthesia Type MAC Disposition Disposition: Recovery Room Indications This is a 70-year-old male who presented to the hospital with chills and sweats, and was found on CT scan to have an obstructing left-sided ureteral stone. There is also concern for infection on urinalysis. He is being brought to the operating room for cystoscopy and left ureteral stent placement to allow maximal drainage of his left kidney. Description of Procedure The patient was identified in the holding area and informed consent was confirmed. They were marked on the left side, then were taken to the operating room where MAC anesthesia was initiated. They were placed in the dorsal lithotomy position with all pressure points appropriately padded. They were prepped and draped in the usual sterile fashion and a preoperative timeout was performed. A well-lubricated cystoscope was inserted per urethra and panendoscopy was performed. The glans was slightly distorted due to his prior Mohs surgery. The distal urethra appeared normal, there was a circumferential ring in the bulbar urethra, consistent with possible early stricture formation. The cystoscope bypass is very easily. He had a trilobar enlarged prostate. The bladder appeared trabeculated. Ureteral orifices were in orthotopic position. The left ureteral orifice was identified and cannulated with a 5 Colombian open- ended catheter. A retrograde pyelogram was performed to outline the course of the ureter and the renal pelvis. No filling defect is appreciated. A 0.038" ZIPwire was advanced to the level of the kidney under fluoroscopic guidance. Over the wire, a 6 Colombian x 26 centimeter double-J ureteral stent was advanced. When the wire was removed, the proximal curl was visualized in the kidney with x-ray, and the distal curl visualized in the bladder with the cystoscope. There was efflux of turbid, cloudy appearing urine once the stent was in place. A sample of this was collected and sent for urine culture. At this point the bladder was drained and all instrumentation was removed. The patient was then awakened from anesthesia and was brought to the PACU in stable condition. I attest to the content of the Intraoperative Record and any orders documented therein. Any exceptions are noted below.
[2021-09-01] MEDS ORDERED: METOPROLOL TARTRATE 1 MG/ML VIAL IV ONE (11:26)
--- NOTE | 2021-09-01 13:25 | Fluoroscopy Report ---
FL retrograde includes kub CLINICAL HISTORY: Left retrograde exam. COMPARISON STUDY: CT of the abdomen and pelvis August 31, 2021. FLUOROSCOPY TIME: 15 seconds. FLUOROSCOPIC IMAGES: 2 FINDINGS: Fluoroscopy was provided during left retrograde exam with placement of a ureteral stent. IMPRESSION: Fluoroscopy provided during left retrograde exam with ureteral stent insertion. ACT 112: Negative or not required by law. Electronically signed by: Rudolph Eldridge M.D. 09/01/2021 1:24 PM
[2021-09-01] MEDS: HEPARIN SODIUM/DEXTROSE 25,000 UNITS/500 ML BAG IV SCH (14:25)
[2021-09-01] MEDS: PHENAZOPYRIDINE HCL 200 MG TAB PO PRN ×2 (14:31→20:36)
--- NOTE | 2021-09-01 14:57 | Anesthesiology Progress Note ---
Date of Service September 01, 2021 Anesthesia Post Procedure Vital Signs Vital Signs: Temp Pulse Pulse Resp BP BP BP 09/01/21 13:20 87 21 132/80 09/01/21 12:45 82 26 H 118/72 09/01/21 12:30 85 28 H 118/71 09/01/21 12:15 91 H 26 H 09/01/21 12:09 97 H 21 103/69 09/01/21 11:50 37.5 C 97 H 29 H 100/69 09/01/21 11:40 93 H 24 137/60 09/01/21 11:30 86 23 110/72 09/01/21 11:22 38.1 C H 105 H 30 H 119/56 L 09/01/21 10:30 93 H 24 09/01/21 10:15 92 H 45 H 09/01/21 10:13 106 H 24 09/01/21 10:00 80 22 09/01/21 08:00 87 09/01/21 07:44 36.6 C 84 18 133/84 09/01/21 06:00 77 26 H 131/104 H 09/01/21 05:00 87 21 09/01/21 04:01 83 30 H 139/81 09/01/21 04:00 97 H 22 09/01/21 03:00 82 29 H 131/104 H 09/01/21 02:01 79 25 H 116/60 09/01/21 02:00 83 24 114/73 09/01/21 01:01 76 30 H 128/83 09/01/21 01:00 76 33 H 09/01/21 00:47 36.8 C 86 16 123/74 09/01/21 00:36 91 H 15 123/74 09/01/21 00:33 36.6 C 83 20 123/74 09/01/21 00:16 79 29 H 105/66 09/01/21 00:05 81 30 H 105/66 09/01/21 00:01 77 27 H 141/104 H 09/01/21 00:00 82 26 H 08/31/21 23:01 86 23 109/68 08/31/21 23:00 88 92 H 25 H 114/73 08/31/21 22:36 88 32 H 08/31/21 21:47 105 H 22 114/87 08/31/21 20:16 36.9 C 103 H 24 144/82 H Pulse Ox 09/01/21 13:20 97 09/01/21 12:45 09/01/21 12:30 93 09/01/21 12:15 90 09/01/21 12:09 82 L 09/01/21 11:50 95 09/01/21 11:40 93 09/01/21 11:30 94 09/01/21 11:22 95 09/01/21 10:30 93 09/01/21 10:15 92 09/01/21 10:13 93 09/01/21 10:00 93 09/01/21 08:00 09/01/21 07:44 93 09/01/21 06:00 91 09/01/21 05:00 93 09/01/21 04:01 93 09/01/21 04:00 92 09/01/21 03:00 94 09/01/21 02:01 90 09/01/21 02:00 94 09/01/21 01:01 93 09/01/21 01:00 94 09/01/21 00:47 94 09/01/21 00:36 09/01/21 00:33 95 09/01/21 00:16 94 09/01/21 00:05 95 09/01/21 00:01 94 09/01/21 00:00 94 08/31/21 23:01 95 08/31/21 23:00 95 08/31/21 22:36 95 08/31/21 21:47 96 08/31/21 20:16 94 Pain Intensity Back: Pain Intensity: 3 Transfer of Care Handoff Completed per policy Notes Mental Status: alert / awake / arousable and participated in evaluation Patient Amnestic to Procedure: Yes Nausea / Vomiting: adequately controlled Pain: adequately controlled Airway Patency, RR, SpO2: stable & adequate BP & HR: see Notes below Hydration State: stable & adequate Anesthetic Complications: no major complications apparent and Pt Satisfied with anesthetic care Notes: Patient with recent A fib and on heparin ggt. Was initially in sinus rhythm but went into A fib during procedure. Metoprolol IV given with good rate controlling effect. He tolerated procedure with sedation and instructed nursing to maintain patient on supplemental oxygen given his recent hx/o increasing shortness of breath and fluid overload. He was conversant and stable after procedure and transferred back to ICU.
[2021-09-01] MEDS ORDERED: MoRPHine SULFATE 2 MG/ML CARP IV STA (20:01)
[2021-09-01] MEDS: TAMSULOSIN HCL 0.4 MG CAP PO SCH (20:34)
[2021-09-01] MEDS: ACETAMINOPHEN 325 MG TAB PO PRN (20:35)
[2021-09-01] MEDS: cefTRIAXone SODIUM 2,000 MG in DEXTROSE 5% 50 ML IV SCH (20:35)
--- NOTE | 2021-09-01 21:33 | Billing Data ---
Date of Service September 01, 2021 Coding Level of Care Code 09634 Initial Inpt Care Lvl 3
[2021-09-02] MEDS ORDERED: MoRPHine SULFATE 2 MG/ML CARP ONE (02:55)
[2021-09-02] MEDS: ACETAMINOPHEN 325 MG TAB PO PRN (02:59)
[2021-09-02 05:49] LABS: Hematocrit (blood only) 35.4 % (42-52); Hemoglobin 11.7 g/dL (14.0-18.0); Mean Corpuscular Hemoglobin 27.9 pg (25-34); Mean Corpuscular Hgb Conc 33.1 g/dL (32-36); Mean Corpuscular Volume 84.5 fL (80-100); Mean Platelet Volume 11.6 fL (7.4-10.4); Nucleated RBC # (auto) 0.02 K/uL (0-0); Nucleated RBC % (auto) 0.2 %; Platelet Count 161 K/uL (130-400); RDW Coefficient of Variation 15.6 % (11.5-14.5); RDW Standard Deviation 48.5 fL (36.4-46.3); Red Blood Count 4.19 M/uL (4.7-6.1); White Blood Count 12.55 K/uL (4.8-10.8)
[2021-09-02] MEDS: HEPARIN SODIUM/DEXTROSE 25,000 UNITS/500 ML BAG IV SCH (05:56)
[2021-09-02 06:18] LABS: BUN Creatinine Ratio 26.5 (10-20); Calcium 8.1 mg/dl (8.5-10.1); Est GFR (African American) 32.7 ml/min; Est GFR (Non-African American) 28.2 ml/min; Potassium 3.1 mmol/L (3.5-5.1)
[2021-09-02 06:37] LABS: ALC (manual) 0.45 K/uL (1.2-3.4); ANC (manual) 11.31 K/uL (1.4-6.5); Echinocytes 2+; Eosinophils # (manual) 0.56 K/uL (0-0.5); Eosinophils % (manual) 4.5 %; Lymphocytes # (manual) 0.45 K/uL (1.2-3.4); Lymphocytes % (manual) 3.6 %; Monocytes # (manual) 0.23 K/uL (0.11-0.59); Monocytes % (manual) 1.8 %; Neutrophils # (manual) 11.31 K/uL (1.4-6.5); Neutrophils % (manual) 90.1 %
[2021-09-02] MEDS ORDERED: MoRPHine SULFATE 2 MG/ML CARP IV STA (06:45)
--- NOTE | 2021-09-02 07:43 | Hospitalist Progress Note ---
Date of Service September 02, 2021 Assessment & Plan (1) Atrial fibrillation with rapid ventricular response: (2) Hydronephrosis with renal and ureteral calculus obstruction: (3) CHAPARRITA (acute kidney injury): (4) CARRI (obstructive sleep apnea): (5) Hyperlipidemia: (6) Hypertension: (7) Pyelonephritis: Plan: 70 yo M Hx nephrolithiasis, CARRI, moderate , HTN, HLD admitted for pyelonephritis, CHAPARRITA, obstructive nephrolithiasis, and new-onset AFib with RVR. AFib with RVR: - On presentation with HR tachycardic in low 100s, sensation of dyspnea. - Initial EKG in AFib with RVR -- - Given metoprolol 25mg PO x1 in ER, which resolved episode - Lopressor PRN - Subsequently in OR had another episode of afib with RVR -- given lopressor 5mg IV x1 and converted back to NSR - Cardiology consulted: - very likely his rapid ventricular response at the time of admission was related to his acute illness - He does have a history of valvular heart disease, obesity, hypertension and a dilated left atrium on echocardiogram all of which predispose him to atrial fibrillation -Switch amlodipine to diltiazem 240 mg daily when blood pressure improves -Can consider cardioversion in the outpatient setting if he remains in atrial fibrillation indefinitely -Exceeds generally excepted weight limit for novel oral anticoagulants however reasonable to start Eliquis at 5 mg twice daily\ -Heparin drip discontinued - Eliquis started at 2.5 mg twice daily due to current CHAPARRITA will monitor creatinine and increased to 5 mg twice daily when able - Echo performed in March 2021 with mildly dilated left atrium, normal LVEF, mild-moderate valvular disease. Urosepsis, CHAPARRITA, uereteral calculus with obstruction/hydronephrosis- POD#1 s/p cystoscopy and left stent placement -CTAP shows obstructive 7mm LEFT renal calculus with mild to moderate hydronephrosis and streaking suggestive of pyelonephritis. - UCx from 08/30 growing E. coli resistant only to ampicillin and Unasyn - Blood cultures growing gram negative bacilli -- further speciation and sensitivities pending - Continue CTX 2g IV q24h - IVF held due to clinical signs of mild fluid overload -- however, his creatinine remains elevated; suspect this will improve with time after stent placement - Tamsulosin daily - Holding chlorthalidone, amlodipine/benazepril, ibuprofen - Urology consulted: - Okay to discontinue Stern catheter this AM, monitor voiding, bladder scan prn - Recommend d/c when medically stable with course of appropriate PO antibiotics, Tamsulosin, prn Pyridium, prn Oxybutynin and prn pain medication for stent management - Will arrange outpatient follow-up with our service to discuss definitive stone management - Monitor BMP Hypokalemia: - Will continue with 60meq daily until repleted -Monitor BMP HTN: - Hold amlodipine/benazepril, chlorthalidone - BP normotensive at this time HLD: - Continue atorvastatin CARRI: - CPAP qHS Code Status: FULL CODE FEN: Heart healthy DVT ppx: Eliquis as above Dispo: Telemetry Admission and Anticipated Discharge Date Admission Date: August 31, 2021 Supervising Physician Co-Signing Physician Notes I also saw the patient confirmed chaudhary portions of the history and the physical examination. Agree with the impression and plan as noted in the resident documentation. The patient is without complaints. The sensation he had in his bladderurinary urgencyhas improved since the Stern catheter was removed. He is hemodynamically stable. It is hard to tell from telemetry if he is in a sinus arrhythmia versus a rate controlled atrial fibrillation; the EKG from this morning looks more like atrial fibrillation. Exam 111/65, 83, 20, 36.7, 92% on room air Pleasant alert. No distress appreciated. Heart is somewhat irregular; rate in the mid 70s. Lungs are clear with nonlabored respirations Data WBC 12.55, hemoglobin 11.7, platelet count 161 Sodium 133, potassium 3.1, BUN 59, creatinine 2.24 2/2 blood cultures drawn 08/31/2021 growing gram-negative bacilli Urine culture dated 08/30/2021 showing E. coli Sepsis (POA) Obstructive uropathy, resolved Acute renal failure Continue ceftriaxone Appreciate urology consultation Creatinine slowly improving, although chest x-ray shows some vascular congestion Will hold fluids and monitor BMP, follow clinically with regards to vascular congestion Atrial fibrillation with rapid ventricular response Jaspalis, if creatinine continues to improve tomorrow, increase to 5 mg p.o. twice daily Appreciate cardiology note, will start diltiazem and lieu of amlodipine, likely tomorrow if pressure will allow His rate has been controlled, although he really has not any activity Increase activity and monitor his rate with ambulation Subjective Patient seen at bedside this morning. He reports feeling overall much better than yesterday. Feels his pain is well controlled, though he did need 2 separate doses of morphine overnight. Says he has been feeling somewhat short of breath especially when laying flat. Feels that his constant urge to urinate, which he had yesterday, has now resolved. Denies chest pain, palpitations, cough, fever, chills, abdominal pain, back pain. Review of Systems Review of Systems: per subjective Physical Exam Physical Exam: GENERAL: A&Ox3. NAD. CHEST/LUNGS: CTAB A/P. No crackles, wheezes, rales, rhonchi. HEART: RRR. No m/g/r. No carotid bruits. ABDOMEN: NT/ND, soft. BS+ x4 EXTREMITIES: No cyanosis, no clubbing, no edema SKIN: Warm and dry. No rashes or lesions. PSYCHIATRIC: Euthymic affect, no SI, no pressured speech, no hallucinations NEUROLOGIC: No FND. CN II-XII grossly intact. Results & Data Results & Data ([facility]) Vital Signs (Past 12 Hours) Vital Signs Temp Pulse Resp BP Pulse Ox 09/02/21 05:15 36.4 C L 78 22 97/54 L 89 L 09/01/21 23:33 36.8 C 89 14 120/61 89 L 09/01/21 20:02 36.7 C 101 H 20 136/102 H 93 Resident Activity Tracking Resident Involvement: Resident Care Provided Care Provided: Adult Hospital Medicine (1) Hyperlipidemia Hyperlipidemia type: pure hypercholesterolemia Qualified Code(s): E78.00 - P ure hypercholesterolemia, unspecified; E78.0 - Pure hypercholesterolemia (2) Hypertension Hypertension type: essential hypertension Qualified Code(s): I10 - Essential (primary) hypertension
[2021-09-02] MEDS: SODIUM CHLORIDE 0.9% 1000ML 1,000 ML IV SCH ×2 (07:46→16:19)
[2021-09-02 07:56] LABS: Partial Thromboplastin Time 52.7 Seconds (21.0-31.0)
[2021-09-02] MEDS: ASPIRIN 81 MG ECTAB PO SCH (07:56)
--- NOTE | 2021-09-02 08:11 | Urology Progress Note ---
Date of Service September 02, 2021 Assessment & Plan (1) Hydronephrosis with renal and ureteral calculus obstruction: (2) S/P ureteral stent placement: Plan: - Pt POD#1 s/p cystoscopy and left stent placement with Dr. Torres - Afebrile overnight, lab work reviewed - creatinine improved to 2.24, WBC improved to 12.55 - continue to trend - UC&S grew out E. coli, BCx prelim gram negative bacilli - On IV Ceftriaxone, follow cultures - Intraop kidney urine aspirate 09/01 - pending - Tolerating left ureteral stent with minimal bother - Okay to discontinue Stern catheter this AM, monitor voiding, bladder scan prn - Continue supportive care, antibiotics, and management per primary service - Recommend d/c when medically stable with course of appropriate PO antibiotics, Tamsulosin, prn Pyridium, prn Oxybutynin and prn pain medication for stent management - Expected clinical course reviewed, all questions answered - Will arrange outpatient follow-up with our service to discuss definitive stone management Thank you for allowing us to participate in the acute care of Mr. De Los Santos. Please reconsult us with additional questions, concerns or changes in patient status. Admission and Anticipated Discharge Date Admission Date: August 31, 2021 Subjective Patient seen and examined at bedside this AM. He is sleeping on arrival, arouses easily to his name. No acute issues overnight. Stern intact, patent and draining orange tinged urine, some sediment. Notes urgency. No dysuria. No fever, chills, nausea or vomiting. Offers no additional complaints. Review of Systems Constitutional: as per Subjective / HPI Gastrointestinal: as per Subjective / HPI Genitourinary: + as per Subjective / HPI Physical Exam Constitutional: well developed, well nourished and + obese; no acute distress and not ill appearing Respiratory: able to speak in complete sentences; no respiratory distress and no labored breathing Cardiovascular: Extremities: no pedal edema Gastrointestinal (Abdomen): Inspection/Auscultation: abdomen normal to inspection; abdomen not distended Percussion/Palpation: abdomen soft; abdomen nontender and no guarding Neurologic: moves all extremities and awake Psychiatric: Orientation: alert and oriented x 3 Genitourinary: no CVA tenderness Stern intact, patent and draining orange tinged urine, some sediment noted Results & Data ([facility]) Vital Signs (Past 12 Hours) Vital Signs Temp Pulse Resp BP BP Pulse Ox 09/02/21 08:05 36.7 C 75 20 116/67 90 09/02/21 05:15 36.4 C L 78 22 97/54 L 89 L 09/01/21 23:33 36.8 C 89 14 120/61 89 L PG Care Time/CCT Total # of Minutes Spent Total Time Spent with Patient: Total time spent is greater than 50% in coordination of care (as documented) at patient's floor/unit and/or counseling patient: Coding Level of Care Code 94569 Subseq Hosp Care Lvl 2 Diagnoses Hydronephrosis with renal and ureteral calculus obstruction N13.2 S/P ureteral stent placement Z96.0
--- NOTE | 2021-09-02 08:27 | Electrocardiogram Report ---
Test Reason : Blood Pressure : / mmHG Vent. Rate : 092 BPM Atrial Rate : 092 BPM P-R Int : 200 ms QRS Dur : 082 ms QT Int : 360 ms P-R-T Axes : 065 025 038 degrees QTc Int : 446 ms Sinus rhythm with occasional Premature ventricular complexes and Premature atrial complexes Nonspecific T wave abnormality Abnormal ECG When compared with ECG of 01-SEP-2021 06:41, Premature ventricular complexes are now Present Confirmed by Jm Be ([id number]) on 09/01/2021 4:44:31 PM Also confirmed by Jm Be ([id number]), news assignment editor Remy Gallagher ([id number]) on 09/02/2021 8:26:51 AM Referred By: Johnny Wayne Confirmed By:Leno Be
[2021-09-02] MEDS ORDERED: POTASSIUM CHLORIDE CRTAB 20 MEQ TABCR PO SCH (09:00)
[2021-09-02] MEDS: APIXABAN 2.5 MG TAB PO SCH ×2 (11:59→20:43)
--- NOTE | 2021-09-02 14:54 | Cardiology Consultation ---
Date of Consultation September 02, 2021 Assessment & Plan (1) New onset atrial fibrillation: (2) Valvular heart disease: 1. Atrial fibrillation: It is unclear the patient had atrial fibrillation at the time of his admission. He certainly has an irregular heart rhythm. However, the initial EKGs documented in his record all demonstrate sinus rhythm with frequent atrial ectopy. Review of his telemetry and an EKG performed this morning is more suggestive of atrial fibrillation. He has not been symptomatic with respect to palpitations. It is very likely his rapid ventricular response at the time of admission was related to his acute illness. He does have a history of valvular heart disease, obesity, hypertension and a dilated left atrium on echocardiogram all of which predispose him to atrial fibrillation. This is also true in the setting of frequent atrial ectopy documented at the beginning of his admission. In any event, he appears to have reasonable rate control. He will likely be more active in the next few days and we will have a better understanding of his heart rates when active. However, I think would be reasonable to switch his amlodipine to diltiazem. This would not only provide antihypertensive benefits but reduce his ventricular response when in atrial fibrillation. I think a reasonable starting dose would be 240 mg daily. This could be started when his blood pressure improves. Likely low in the setting of his infection. I do not believe is a role for cardioversion currently. Whether who remained in atrial fibrillation indefinitely is unclear. However, this can be reassessed in the outpatient setting in the determination made at that time if cardioversion is worthwhile. He was started on anticoagulation for prevention of stroke. He does exceed the generally accepted weight limit for the novel oral anticoagulants. However, it would seem reasonable to start Eliquis in any regard. Believe the appropriate dose would be 5 mg twice daily. Aspirin can be discontinued. 2. Valvular heart disease: Known to have an element of mitral regurgitation, aortic regurgitation and aortic stenosis. No symptoms. Monitored periodically. History of Present Illness Reason for Consultation: Atrial fibrillation Requesting Physician: Andrea Attending Physician: Jame Del Real, History of Present Illness The patient is a 70-year-old gentleman without a history of mild aortic stenosis who presented to the hospital with several days worth of worsening weakness, fevers, chills and breathing difficulty. At the time of initial evaluation the patient was noted to have atrial fibrillation and rapid ventricular response. He was also discovered to have an obstructing renal calculi and associated infection. Patient underwent successful stone removal and stent placement. He has continued to have some irregularity in his heartbeat during this admission. The patient states that he is feeling much better. He reported being 85% of normal. He continues to have some element of fatigue and mild dyspnea with activity. He has been unaware of any palpitations. He did not report symptoms of chest pain. He denies dizziness or lightheadedness. Leading up to his admission the patient claims to be an active individual who is generally not limited by symptoms of breathing difficulty. He has not been aware of palpitations or elevated heart rates in the past. He denied any symptoms of chest pain. He tends to be active with few limitations. He does not exercise regularly. Allergies Allergy/AdvReac Type Severity Reaction Status Date / Time No Known Allergies Allergy Unknown Verified 08/31/21 21:29 Home Medications Medication Instructions Recorded Confirmed Type glucosamine [id number] 1 tab PO QAM 02/19/19 08/31/21 History ellis 1,500 mg-400 unit-100 mg tablet (Osteo Bi-Flex (5-Loxin)) ytnkmggo-axa-qligm acid 0.4 1 tab PO QAM 02/19/19 08/31/21 History mg-lycopene 300 mcg-lutein 250 mcg tablet (Centrum Silver) omega-3 acid ethyl esters 1 gram 1 cap PO QAM cap 07/02/19 08/31/21 History capsule aspirin 81 mg chewable tablet 81 mg PO QAM 02/21/20 08/31/21 History tamsulosin 0.4 mg capsule (Flomax) 0.4 mg PO HS #90 cap 11/16/20 08/31/21 Rx atorvastatin 40 mg tablet 40 mg PO DAILY #90 tab 11/23/20 08/31/21 Rx amlodipine 10 mg-benazepril 40 mg 1 cap PO QAM #90 cap 01/25/21 08/31/21 Rx capsule (Lotrel) chlorthalidone 25 mg tablet 25 mg PO QAM #90 tab 05/11/21 08/31/21 Rx acetaminophen 500 mg tablet 1,000 mg PO Q6H PRN 08/31/21 08/31/21 History (Tylenol Extra Strength) ibuprofen 200 mg tablet 400 mg PO Q6H PRN 08/31/21 08/31/21 History Patient History Medical History (Updated 09/02/21 @ 14:50 by Matt Be MD) Aortic stenosis moderate (KATHRYN 1.43cm2, MG 23.9mmhg) per 02/2020 echo Apnea, sleep CPAP BPH (benign prostatic hyperplasia) Carotid artery stenosis Complex renal cyst per ultrasound, scheduled for repeat in 1 yr Hyperlipidemia Hypertension Irregular sleep-wake rhythm, nonorganic origin Morbid obesity Nocturnal hypoxemia Osteoarthritis 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 Other No family history of adverse response to anesthesia Denies family history of Ovarian cancer Prostate cancer Myocardial infarction Lung cancer Colorectal cancer Social History Smoking Status: Former smoker Tobacco Type: Cigarettes Age Started Using Tobacco: 14; Age Quit Using Tobacco: 38; packs per day: 1.5; Years Smoked: 24; Second Hand Exposure: No; Do You Dip or Chew Tobacco: No; Hx Alcohol Use: No Hx Substance Use: No Preferred Language: Lithuanian Communication Ability: Effective Visual Impairment: Limited Hearing Ability: Normal Lace Weaver Required: Yes Beliefs That Will Affect Care: None marital status: Current Living Situation: Spouse current occupational status: retired How many Children do You have: 1 Other Information That Helps Us Care for You: No Feels Safe at Home: Yes Safety Concerns: Feels Safe At This Time Childhood Exposure to Second-Hand Smoke: Yes caffeine: Yes (1 cup of coffee daily ) Dental Care, Regularly: Yes Physical Activity Frequency: 3-4 Times per Week Physical Activity Frequency Comment: walks Seatbelt Use: always Sunscreen Use: No Assistive Devices: None Review of Systems Review of Systems: Per HPI Physical Exam Physical Exam: The patient is alert and oriented. Mood and affect appeared normal. He answered all questions appropriately. Obese HEENT: Pupils are equal and reactive to light and accommodation. Extraocular movements are intact. The sclerae are anicteric. Neuro: Cranial nerves intact Lungs: Clear to auscultation bilaterally. He has good air movement without use of accessory muscles. No rales wheezes or rhonchi. Cardiac: Heart demonstrates an irregular rate and rhythm. Normal S1 and S2. No murmurs on examination. Pulses: The patient has palpable radial pulses bilaterally that are equal in intensity Extremities: There was no evidence of hypoperfusion. There is no cyanosis or clubbing. Skin: I did not appreciate any rashes on examination today. Results & Data ([facility]) Vital Signs (Past 12 Hours) Vital Signs Temp Pulse Pulse Resp BP BP Pulse Ox 09/02/21 12:17 36.7 C 83 20 111/65 92 09/02/21 08:14 79 09/02/21 08:05 36.7 C 75 20 116/67 90 09/02/21 05:15 36.4 C L 78 22 97/54 L 89 L Laboratory Results Abnormal Lab Results 09/02/21 09/02/21 09/02/21 05:30 05:30 07:08 WBC 12.55 H RBC 4.19 L Hgb 11.7 L Hct 35.4 L MCV 84.5 MCH 27.9 MCHC 33.1 RDW Std Deviation 48.5 H RDW Coeff of Jose 15.6 H Plt Count 161 MPV 11.6 H Absolute Nucleated RBC 0.02 H Nucleated RBC % (auto) 0.2 Neutrophils % (Manual) 90.1 Lymphocytes % (Manual) 3.6 Monocytes % (Manual) 1.8 Eosinophils % (Manual) 4.5 Neutrophils # (Manual) 11.31 H Total Absolute Neuts 11.31 H Lymphocytes # (Manual) 0.45 L Total Abs Lymphocytes 0.45 L Monocytes # (Manual) 0.23 Eosinophils # (Manual) 0.56 H Echinocytes 2+ APTT 52.7 H* PTT Ratio 2.0 Sodium 133 L Potassium 3.1 L Chloride 103 Carbon Dioxide 23 Anion Gap 7.0 BUN 59 H Creatinine 2.24 H D Est Cr Clr Drug Dosing 41.0 Est GFR ( Amer) 32.7 Est GFR (Non-Af Amer) 28.2 BUN/Creatinine Ratio 26.5 H Glucose 111 H Calcium 8.1 L Diagnostic Findings Echocardiogram obtained 03/15/2021: Normal LV systolic function with ejection fraction of 60 65%. Mild LVH. Mild left atrial dilation. Mild mitral annular calcification. Dvha-sv-kqglrmgk mitral regurgitation. Mild aortic regurgitation. Moderate valvular aortic stenosis. Chest x-ray obtained yesterday revealed the possibility of some mild vascular congestion versus infectious process. PG Care Time/CCT Total # of Minutes Spent Total Time Spent with Patient: Total time spent is greater than 50% in coordination of care (as documented) at patient's floor/unit and/or counseling patient: Coding Level of Care Code 48334 Initial Inpt Care Lvl 3 Diagnoses New onset atrial fibrillation I48.91 Valvular heart disease I38
--- NOTE | 2021-09-02 18:23 | Electrocardiogram Report ---
Test Reason : Blood Pressure : / mmHG Vent. Rate : 077 BPM Atrial Rate : 072 BPM P-R Int : 000 ms QRS Dur : 084 ms QT Int : 262 ms P-R-T Axes : 000 024 -03 degrees QTc Int : 296 ms Atrial fibrillation Nonspecific T wave abnormality Abnormal ECG When compared with ECG of 01-SEP-2021 14:15, Atrial fibrillation has replaced Sinus rhythm Nonspecific T wave abnormality now evident in Anterior leads QT has shortened Confirmed by Jm Be ([id number]) on 09/02/2021 6:23:08 PM Referred By: Johnny Wayne Confirmed By:Leno Be
--- NOTE | 2021-09-02 18:32 | Electrocardiogram Report ---
Test Reason : Blood Pressure : / mmHG Vent. Rate : 096 BPM Atrial Rate : 088 BPM P-R Int : 000 ms QRS Dur : 082 ms QT Int : 392 ms P-R-T Axes : 000 041 031 degrees QTc Int : 495 ms Sinus rhythm with PACs and aberrant conduction Abnormal ECG When compared with ECG of 25-FEB-2020 14:32, QT has lengthened Confirmed by Jm Be ([id number]) on 09/02/2021 6:32:19 PM Referred By: Johnny Wayne Confirmed By:Leno Be
[2021-09-02] MEDS: TAMSULOSIN HCL 0.4 MG CAP PO SCH (20:42)
[2021-09-02 21:24] LABS: Hematocrit (blood only) 35.6 % (42-52); Hemoglobin 12.3 g/dL (14.0-18.0); Mean Corpuscular Hemoglobin 28.3 pg (25-34); Mean Platelet Volume 11.3 fL (7.4-10.4); Platelet Count 185 K/uL (130-400); RDW Coefficient of Variation 15.5 % (11.5-14.5); Red Blood Count 4.34 M/uL (4.7-6.1); White Blood Count 15.92 K/uL (4.8-10.8)
[2021-09-02] MEDS ORDERED: FUROSEMIDE INJ 20 MG/2 ML VIAL IV ONE (21:35)
[2021-09-02] MEDS ORDERED: ALBUT/IPRATROP 3MG/0.5MG NEB 3 ML VIAL NEB STA (21:35)
[2021-09-02 21:41] LABS: D Dimer 1400 ug/L FEU (0-500)
--- NOTE | 2021-09-02 21:52 | Communication Note ---
Date of Service: September 02, 2021 Night team made aware of patient experiencing a wet cough -O2 sat 90 on room air, HR 100 bpm, BP 110/76, afebrile. I placed orders for CBC, procal, Ddimer and CXR. On exam, his lung sounds were coarse and he had expiratory wheezing. CXR showed no consolidation, no pleural effusions, but evidence of pulm vascular congestion. WBC increased from 12.5 to 15.9. Procal returned elevated to 27. Ddimer returned elevated to 1400. Patient was initially placed on a heparin drip on admission due to new onset afib with RVR - this was temporarily stopped for his ureteral stent placement. Post-operatively he was started on Eliquis. A Chest CTA with pe protocol was considered however this could not be done as his GFR < 30. I placed orders for 20mg IV lasix and a duo neb. I also ordered an incentive spirometer. Patient is already on IV Rocephin - I did escalate to zosyn due to his elevated procal, increased WBC, and new onset cough with O2 sat of 90 on RA. He was intubated for his procedure on 09/01/21 and is therefore at risk for aspiration (anaerobic coverage). He has also been in healthcare setting for > 48 hours and is at risk for HCAP (pseudomonal coverage). Vitals remained stable and cough seemed to improve after 1st dose of lasix 20mg IV and duo neb. I did give a second dose of lasix 20mg IV.
[2021-09-02] MEDS: cefTRIAXone SODIUM 2,000 MG in DEXTROSE 5% 50 ML IV SCH (22:07)
[2021-09-02 22:26] LABS: Mean Corpuscular Hgb Conc 34.6 g/dL (32-36)
[2021-09-02 22:28] LABS: Basophils # (auto) 0.03 K/uL (0-0.2); Basophils % (auto) 0.2 %; Dohle Bodies 1+; Echinocytes 1+; Eosinophils # (auto) 0.18 K/uL (0-0.5); Eosinophils % (auto) 1.1 %; Immature Granulocytes % (auto) 1.9 %; Lymphocytes # (auto) 0.39 K/uL (1.2-3.4); Lymphocytes % (auto) 2.4 %; Monocytes % (auto) 6.9 %; Neutrophils # (auto) 13.92 K/uL (1.4-6.5); Neutrophils % (auto) 87.5 %; Rouleaux 1+
[2021-09-03] MEDS ORDERED: AZITHROMYCIN 500 MG in DEXTROSE 5% 250 ML IV STA (00:01)
[2021-09-03] MEDS ORDERED: FUROSEMIDE INJ 20 MG/2 ML VIAL IV ONE ×3 (00:04→12:17)
[2021-09-03] MEDS ORDERED: PIPERACILL/TAZOBAC CONSULT ACTIVE PRN (00:16)
[2021-09-03] MEDS ORDERED: PIPERACILLIN/TAZOBACTAM 4.5 GM in DEXTROSE 5% 100 ML IV ONE (01:00)
[2021-09-03] MEDS: SODIUM CHLORIDE 0.9% 1000ML 1,000 ML IV SCH ×2 (04:14→13:41)
[2021-09-03 05:38] LABS: Hematocrit (blood only) 34.9 % (42-52); Hemoglobin 11.7 g/dL (14.0-18.0); Mean Corpuscular Hemoglobin 28.1 pg (25-34); Mean Corpuscular Hgb Conc 33.5 g/dL (32-36); Mean Corpuscular Volume 83.7 fL (80-100); Mean Platelet Volume 11.4 fL (7.4-10.4); Platelet Count 183 K/uL (130-400); RDW Coefficient of Variation 15.8 % (11.5-14.5); RDW Standard Deviation 48.9 fL (36.4-46.3); Red Blood Count 4.17 M/uL (4.7-6.1); White Blood Count 16.35 K/uL (4.8-10.8)
[2021-09-03] MEDS: PIPERACILLIN/TAZOBACTAM 4.5 GM in DEXTROSE 5% 100 ML IV SCH ×3 (05:59→23:01)
[2021-09-03 06:01] LABS: Basophils # (auto) 0.04 K/uL (0-0.2); Basophils % (auto) 0.2 %; Dohle Bodies 1+; Echinocytes 1+; Eosinophils # (auto) 0.25 K/uL (0-0.5); Eosinophils % (auto) 1.5 %; Immature Granulocytes # (auto) 0.56 K/uL (0.00-0.02); Immature Granulocytes % (auto) 3.4 %; Lymphocytes # (auto) 0.94 K/uL (1.2-3.4); Lymphocytes % (auto) 5.7 %; Monocytes # (auto) 1.62 K/uL (0.11-0.59); Monocytes % (auto) 9.9 %; Neutrophils # (auto) 12.94 K/uL (1.4-6.5); Neutrophils % (auto) 79.3 %
[2021-09-03 06:05] LABS: BUN Creatinine Ratio 31.6 (10-20); Calcium 8.7 mg/dl (8.5-10.1); Creatinine Clr Calc Pharmacy 45.1 ml/min; Est GFR (African American) 36.4 ml/min; Est GFR (Non-African American) 31.4 ml/min; Partial Thromboplastin Ratio 1.2; Partial Thromboplastin Time 30.4 Seconds (21.0-31.0); Potassium 3.2 mmol/L (3.5-5.1)
--- NOTE | 2021-09-03 06:57 | XRay Report ---
XR chest 1V portable CLINICAL HISTORY: cough, hypoxia, post op. COMPARISON STUDY: 09/01/2021 TECHNIQUE: 1 view of the chest FINDINGS: Single frontal view of the chest demonstrates the cardiomediastinal silhouette to be within normal li mits. Compared to the previous study, there is decrease in interstitial prominence. The lungs are ata ar of alveolar opacities. There is no evidence for pleural effusion. There is no evidence for vascula r congestion. There is no acute osseous pathology. IMPRESSION: No acute cardiopulmonary disease. ACT 112: Negative or not required by law. Electronically signed by: Bala Cai M.D. 09/03/2021 6:56 AM
[2021-09-03] MEDS ORDERED: POTASSIUM CHLORIDE CRTAB 20 MEQ TABCR PO STA (07:06)
--- NOTE | 2021-09-03 07:09 | Hospitalist Progress Note ---
Date of Service September 03, 2021 Assessment & Plan (1) Atrial fibrillation with rapid ventricular response: (2) Hydronephrosis with renal and ureteral calculus obstruction: (3) CHAPARRITA (acute kidney injury): (4) CARRI (obstructive sleep apnea): (5) Hyperlipidemia: (6) Hypertension: (7) Pyelonephritis: Plan: 70 yo M Hx nephrolithiasis, CARRI, moderate , HTN, HLD admitted for pyelonephritis, CHAPARRITA, obstructive nephrolithiasis, and new-onset AFib with RVR. SOB with Leukocytosis - ? superimposed PNA v. fluid overload - Patient throughout 09/02 day with mild SOB and reports of crackles in lungs - At night 09/02 developed wet cough, sattin 90 on RA - Overnight resident ordered various labs/imaging - Procal elevated to 27, D-dimer elevated at 1400, WBC increased from 12.5 to 15.9, CXR with no acute findings - Overnight resident ordered Lasix 20mg IV x2, escalated abx from Rocephin to Zosyn, ordered duoneb and incentive spirometry - Chest CTA not ordered due to GFR < 30 - non-contrast chest CT ordered showing no acute chest disease, mild bronchiectasis at both lung bases posteriorly, bilateral endobronchial thickening which can be seen with chronic bronchitis - Patient does have prior [id number] history, quit several decades ago - VSS stable with O2 sat remaining low 90s on room air -- pt reports at home he has pulse ox and is regularly around 92-93%, not typically much higher than this - BCx growing pansensitive E.coli -- continue Zosyn for now - SOB more likely secondary to fluid overload -- given additional dose of Lasix 20mg IV - Monitor kidney function in AM and consider additional doses AFib with RVR: - On presentation with HR tachycardic in low 100s, sensation of dyspnea. - Initial EKG in AFib with RVR -- - Given metoprolol 25mg PO x1 in ER, which resolved episode - Lopressor PRN - Subsequently in OR had another episode of afib with RVR -- given lopressor 5mg IV x1 and converted back to NSR - Cardiology consulted: - very likely his rapid ventricular response at the time of admission was related to his acute illness - He does have a history of valvular heart disease, obesity, hypertension and a dilated left atrium on echocardiogram all of which predispose him to atrial fibrillation - Switch amlodipine to diltiazem 240 mg daily when blood pressure improves - Can consider cardioversion in the outpatient setting if he remains in atr ial fibrillation indefinitely - Exceeds generally excepted weight limit for novel oral anticoagulants however reasonable to start Eliquis at 5 mg twice daily -Heparin drip discontinued - Eliquis increased to 5mg BID - Echo performed in March 2021 with mildly dilated left atrium, normal LVEF, mild-moderate valvular disease. Urosepsis, CHAPARRITA, uereteral calculus with obstruction/hydronephrosis- POD#1 s/p cystoscopy and left stent placement -CTAP shows obstructive 7mm LEFT renal calculus with mild to moderate hydronephrosis and streaking suggestive of pyelonephritis. - UCx from 08/30 growing E. coli resistant only to ampicillin and Unasyn - Blood cultures as above - Continue CTX 2g IV q24h - IVF held due to clinical signs of fluid overload -- however, his creatinine remains elevated; suspect this will improve with time after stent placement - Tamsulosin daily - Holding chlorthalidone, amlodipine/benazepril, ibuprofen - Urology consulted: - Okay to discontinue Stern catheter this AM (09/02), monitor voiding, bladder scan prn - Recommend d/c when medically stable with course of appropriate PO antibiotics, Tamsulosin, prn Pyridium, prn Oxybutynin and prn pain medication for stent management - Will arrange outpatient follow-up with our service to discuss definitive stone management - Monitor BMP Hypokalemia: - Replete prn - Monitor BMP HTN: - Hold amlodipine/benazepril, chlorthalidone - BP normotensive at this time HLD: - Continue atorvastatin CARRI: - CPAP qHS Code Status: FULL CODE FEN: Heart healthy DVT ppx: Eliquis as above Dispo: Telemetry Admission and Anticipated Discharge Date Admission Date: August 31, 2021 Supervising Physician Co-Signing Physician Notes Attending attestation Pt seen and examined in concert with Dr. Franklin. In agreement with the documented findings as noted in the resident documentation with any exceptions or additions as noted here. Significantly improved shortness of breath with acitvity and minimal cough with though not resolved is less concerning to the patient than previously. On examination, S1/S2 nl IRR no MCG. CTAB though some decrease at bilateral bases. Abd NT/ND BS+ve Fluid overload in the setting of sepsis w/ resuscitation and acute renal failure - improving after furosemide, continue diuresis and monitor I/Os Sepsis (POA) w/ obstructive uropathy (resolved) and acute renal failure - urology consult - continue ceftriaxone, trend BMP daily AF w/ RVR - rate controlled - transition from amlodipine to dilt 240mg when pressure stable. Increase to 5mg BID eliquis Else see resident documentation as noted. Subjective Patient seen at bedside this morning. He reports that overnight he did feel very short of breath and had a wet cough. Says that he felt much better after receiving Lasix and nebulizers. Feels that at this moment he is reasonably well- controlled but has noticed that the cough started to creep back up after more time has passed since his last Lasix dose. He denies any feelings of fever, chills, nausea, vomiting, abdominal pain, chest pain, palpitations, diarrhea. His urinary complaints, specifically his urinary urgency has now resolved. Review of Systems Review of Systems: per subjective Physical Exam Physical Exam: GENERAL: A&Ox3. NAD. CHEST/LUNGS: Diffuse crackles. No increased WOB. HEART: RRR. No m/g/r. No carotid bruits. ABDOMEN: NT/ND, soft. BS+ x4 EXTREMITIES: No cyanosis, no clubbing, no edema SKIN: Warm and dry. No rashes or lesions. PSYCHIATRIC: Euthymic affect, no SI, no pressured speech, no hallucinations NEUROLOGIC: No FND. CN II-XII grossly intact. Results & Data Results & Data ([facility]) Vital Signs (Past 12 Hours) Vital Signs Temp Pulse Pulse Pulse Resp BP Pulse Ox 09/03/21 05:16 36.9 C 83 20 116/54 L 90 09/03/21 00:00 81 09/02/21 23:26 36.9 C 90 18 102/68 90 09/02/21 22:16 99 H 20 92 09/02/21 19:12 37.3 C 100 H 20 110/76 90 Resident Activity Tracking Resident Involvement: Resident Care Provided Care Provided: Adult Hospital Medicine (1) Hyperlipidemia Hyperlipidemia type: pure hypercholesterolemia Qualified Code(s): E78.00 - Pure hypercholesterolemia, unspecified; E78.0 - Pure hypercholesterolemia (2) Hypertension Hypertension type: essential hypertension Qualified Code(s): I10 - Essential (primary) hypertension
[2021-09-03] MEDS: APIXABAN 2.5 MG TAB PO SCH (08:28)
[2021-09-03] MEDS: ASPIRIN 81 MG ECTAB PO SCH (08:28)
--- NOTE | 2021-09-03 13:35 | CT Scan Report ---
CT chest diagnostic wo con CLINICAL HISTORY: SOB COMPARISON STUDY: Portable chest from 09/02/2021 CT DOSE: 867.87 mGy.cm TECHNIQUE: Standard CT of the Chest was performed without IV contrast. A dose lowering technique was utilized adhering to the principles of ALARA. FINDINGS: Airway: The airway is clear. No endobronchial lesion is identified. However, there is endobronchial t hickening seen centrally which can be seen with chronic bronchitis. No smoking history was provided. Lungs: There is minimal bronchiectasis at the lung bases bilaterally. There is no mucus plugging. The lungs are otherwise clear of acute alveolar opacities, air bronchograms or pulmonary nodules. Pleura: There is no evidence for pleural effusion. There is no evidence for pneumothorax. Mediastinum: There is no evidence for pathologic adenopathy on these limited noncontrast images. The heart size is within normal limits. Coronary artery calcification is present. Mild coronary artery an d mitral valve calcification is also seen. The thoracic aorta is within normal limits. Atheroscleroti c calcification is present involving the aortic arch and origin of the great vessels. There is no vianca dence for pericardial effusion. Upper abdomen: The adrenal glands are normal bilaterally. Osseous structures: There is no acute osseous pathology. IMPRESSION: 1. Bilateral endobronchial thickening which can be seen with the clinical diagnosis of chronic bronch itis. No smoking history was provided. 2. Mild bronchiectasis at both lung bases posteriorly. No mucous plugging. 3. There is otherwise no acute chest disease on these noncontrast images. 4. Coronary artery calcification, aortic valve calcification and mitral annular calcification. ACT 112: Negative or not required by law. Electronically signed by: Bala Cai M.D. 09/03/2021 1:33 PM
[2021-09-03] MEDS: TAMSULOSIN HCL 0.4 MG CAP PO SCH (20:23)
[2021-09-03] MEDS: APIXABAN 5 MG TABLET PO SCH (20:24)
[2021-09-04 05:09] LABS: Hemoglobin 13.1 g/dL (14.0-18.0); Mean Corpuscular Hemoglobin 28.5 pg (25-34); Mean Corpuscular Hgb Conc 33.6 g/dL (32-36); Mean Platelet Volume 11.1 fL (7.4-10.4); Platelet Count 227 K/uL (130-400); RDW Coefficient of Variation 16.3 % (11.5-14.5); RDW Standard Deviation 51.3 fL (36.4-46.3); Red Blood Count 4.59 M/uL (4.7-6.1); White Blood Count 19.28 K/uL (4.8-10.8)
[2021-09-04 05:39] LABS: BUN Creatinine Ratio 31.3 (10-20); Calcium 9.5 mg/dl (8.5-10.1); Creatinine Clr Calc Pharmacy 50.5 ml/min; Est GFR (African American) 41.8 ml/min; Est GFR (Non-African American) 36.1 ml/min; Potassium 3.5 mmol/L (3.5-5.1)
[2021-09-04 05:45] LABS: ALC (manual) 1.16 K/uL (1.2-3.4); ANC (manual) 15.13 K/uL (1.4-6.5); Eosinophils # (manual) 0.33 K/uL (0-0.5); Eosinophils % (manual) 1.7 %; Lymphocytes # (manual) 1.16 K/uL (1.2-3.4); Metamyelocytes # (manual) 0.33 K/uL (0-0); Metamyelocytes % (manual) 1.7 %; Monocytes # (manual) 2.16 K/uL (0.11-0.59); Monocytes % (manual) 11.2 %; Myelocytes # (manual) 0.17 K/uL (0-0); Myelocytes % (manual) 0.9 %; Neutrophils # (manual) 15.13 K/uL (1.4-6.5); Neutrophils % (manual) 78.5 %; RBC Morphology Unremarkable
[2021-09-04] MEDS: PIPERACILLIN/TAZOBACTAM 4.5 GM in DEXTROSE 5% 100 ML IV SCH ×3 (06:04→21:42)
--- NOTE | 2021-09-04 06:45 | Hospitalist Progress Note ---
Date of Service September 04, 2021 Assessment & Plan (1) Pyelonephritis: Plan: 70yo male with a PMH including nephrolithiasis, CARRI, moderate , HTN, HLD admitted for pyelonephritis, CHAPARRITA, obstructive nephrolithiasis, and new-onset AFib with RVR. Shortness of breath, leukocytosis - 09/02: developed progressive SOB, crackles on auscultation; CXR without acute findings, procal and d-dimer elevated, worsening leukocytosis - Responded well to lasix 20mg IV x2; symptoms felt likely secondary to fluid overload - Duonebs, incentive spirometry - Chest CTA not ordered due to GFR < 30 - CT chest (without contrast due to low GFR) showed no acute disease, mild bronchiectasis of bases, bilateral endobronchial thickening - Continues to maintain adequate saturation on room air - Blood culture growing pansensitive E. coli though without clear source - Antibiotic coverage escalated (discontinued rocephin, started zosyn) - Trend CBC, BMP daily AFib with RVR - Patient mildly tachycardic on admission; EKG showed afib with RVR, converted to NSR after metoprolol 25mg PO x1 in ER - Repeat episode while in OR, which again converted back to NSR after lopressor 5mg IV x1 - Lopressor prn further episodes -Cardiology consulted: -Very likely his rapid ventricular response at the time of admission was related to his acute illness - Afib risk factors include valvular heart disease, obesity, HTN, and a dilated left atrium - When BP improves, switch amlodipine to diltiazem 240mg qd - Switch amlodipine to diltiazem 240 mg daily when blood pressure improves - Can consider cardioversion in the outpatient setting if he remains in atrial fibrillation - Exceeds weight limit for NOAC, but it's still reasonable to start eliquis 5mg bid - Heparin drip discontinued, continue eliquis 5mg bid - Echo (03/24): mildly dilated left atrium, normal LVEF, mild-moderate valvular disease Urosepsis, CHAPARRITA, obstructing ureteral calculus with hydronephrosis s/p cystoscopy, stent placement,POD#2 - CTAP shows obstructive 7mm LEFT renal calculus with mild to moderate hydronephrosis and streaking suggestive of pyelonephritis. - UCx from 08/30 growing E. coli resistant only to ampicillin and unasyn; blood cultures as above - Urology consulted: - Stern discontinued - Recommend d/c when medically stable with course of appropriate PO antibiotics, tamsulosin, prn pyridium, prn oxybutinin, and pain control - Urology will arrange outpatient follow-up - IVF held due to clinical signs of fluid overload -- however, his creatinine remains elevated; suspect this will improve with time after stent placement - Continue ceftriaxone - Holding chlorthalidone, amlodipine/benazepril, ibuprofen - Continue tamsulosin - Trend BMP Hypokalemia: resolved - Trend BMP, replete as indicated HTN - BP normotensive at this time - Holding amlodipine/benazepril, chlorthalidone HLD - Continue atorvastatin CARRI - Continue CPAP FEN: heart healthy diet Code status: full code DVT ppx: eliquis Dispo: med/surg (2) S/P ureteral stent placement: (3) New onset atrial fibrillation: (4) Hypertension: (5) Hyperlipidemia: Admission and Anticipated Discharge Date Admission Date: August 31, 2021 Supervising Physician Co-Signing Physician Notes Attending attestation Pt seen and examined in concert with Dr. Vazquez. In agreement with the documented findings as noted in the resident documentation with any exceptions or additions as noted here. Some mild nasal congestion without pharyngitis, CRUZ, etc. Significantly improved SOB and now walking laps around the floor without issue. On examination, S1/S2 nl IRR no MCG. CTAB still decreased at bilateral bases. Abd NT/ND BS+ve Leukocytosis - uptrending without concurrent symptoms - potentially mobilizing inflammation from renal inflammation - monitor and surveillance for sx, culture with fever. CT chest w/o developing pathology Fluid overload in the setting of sepsis w/ resuscitation and acute renal failure - essential resolution of sx, renal function continues to improve Sepsis (POA) w/ obstructive uropathy (resolved) and acute renal failure - urology consult - continue abx, trend BMP daily AF w/ RVR - rate controlled - transition from amlodipine to dilt 240mg when pressure stable. Continue Eliquis Else see resident documentation as noted. Subjective Patient seen and evaluated at bedside this morning. No acute events overnight. Today, patient feels well and has no complaints. Denies any pain at this time. Reports his breathing feels quite a bit better than yesterday. Patient denies CP, SOB, abdominal pain, nausea, vomiting, lightheadedness, dizziness, and diarrhea. Review of Systems Review of Systems: See HPI Physical Exam Physical Exam: Constitutional: well-appearing, no acute distress, standing up at bedside CV: irregular rhythm, no murmur appreciated, trace LE edema Resp: breath sounds slightly diminished in lower lobes bilaterally, no crackles appreciated, no wheezing, no increased work of breathing MSK: no flank tenderness Neuro: alert, oriented, no focal neurologic deficit appreciated Results & Data Results & Data ([facility]) Vital Signs (Past 12 Hours) Vital Signs Temp Pulse Pulse Resp BP Pulse Ox 09/04/21 04:23 37.0 C 88 21 101/67 92 09/04/21 00:00 86 09/03/21 22:48 36.8 C 85 17 145/77 H 92 09/03/21 21:07 36.8 C 92 H 17 129/83 90 09/03/21 20:00 85 Resident Activity Tracking Resident Involvement: Resident Care Provided Care Provided: Adult Hospital Medicine (1) Hyperlipidemia Hyperlipidemia type: pure hypercholesterolemia Qualified Code(s): E78.00 - Pure hypercholesterolemia, unspecified; E78.0 - Pure hypercholesterolemia (2) Hypertension Hypertension type: essential hypertension Qualified Code(s): I10 - Essential (primary) hypertension
[2021-09-04] MEDS: APIXABAN 5 MG TABLET PO SCH ×2 (08:35→20:25)
[2021-09-04] MEDS: ASPIRIN 81 MG ECTAB PO SCH (08:35)
[2021-09-04] MEDS: TAMSULOSIN HCL 0.4 MG CAP PO SCH (20:25)
[2021-09-04] MEDS: ACETAMINOPHEN 325 MG TAB PO PRN (23:10)
[2021-09-05 04:48] LABS: Hematocrit (blood only) 37.4 % (42-52); Hemoglobin 12.4 g/dL (14.0-18.0); Mean Corpuscular Hemoglobin 28.1 pg (25-34); Mean Corpuscular Hgb Conc 33.2 g/dL (32-36); Mean Corpuscular Volume 84.6 fL (80-100); Mean Platelet Volume 10.7 fL (7.4-10.4); Platelet Count 252 K/uL (130-400); RDW Coefficient of Variation 16.3 % (11.5-14.5); RDW Standard Deviation 50.7 fL (36.4-46.3); Red Blood Count 4.42 M/uL (4.7-6.1); White Blood Count 19.62 K/uL (4.8-10.8)
[2021-09-05 05:06] LABS: BUN Creatinine Ratio 33.3 (10-20); Calcium 9.1 mg/dl (8.5-10.1); Creatinine Clr Calc Pharmacy 65.1 ml/min; Est GFR (African American) 58.3 ml/min; Est GFR (Non-African American) 50.3 ml/min; Potassium 3.4 mmol/L (3.5-5.1)
[2021-09-05 05:08] LABS: ALC (manual) 0.69 K/uL (1.2-3.4); ANC (manual) 14.85 K/uL (1.4-6.5); Dohle Bodies Occasional; Eosinophils # (manual) 1.02 K/uL (0-0.5); Eosinophils % (manual) 5.2 %; Lymphocytes # (manual) 0.69 K/uL (1.2-3.4); Lymphocytes % (manual) 3.5 %; Metamyelocytes # (manual) 0.84 K/uL (0-0); Metamyelocytes % (manual) 4.3 %; Monocytes # (manual) 1.02 K/uL (0.11-0.59); Monocytes % (manual) 5.2 %; Myelocytes % (manual) 6.1 %; Neutrophils # (manual) 14.85 K/uL (1.4-6.5); Neutrophils % (manual) 75.7 %; RBC Morphology Unremarkable
[2021-09-05] MEDS: PIPERACILLIN/TAZOBACTAM 4.5 GM in DEXTROSE 5% 100 ML IV SCH ×3 (05:34→22:17)
[2021-09-05] MEDS: ACETAMINOPHEN 325 MG TAB PO PRN ×3 (05:37→20:08)
--- NOTE | 2021-09-05 07:02 | Hospitalist Progress Note ---
Date of Service September 05, 2021 Assessment & Plan (1) Pyelonephritis: Plan: 70yo male with a PMH including nephrolithiasis, CARRI, moderate , HTN, HLD admitted for pyelonephritis, CHAPARRITA, obstructive nephrolithiasis, and new-onset AFib with RVR. Shortness of breath, leukocytosis - 09/02: developed progressive SOB, crackles on auscultation; CXR without acute findings, procal and d-dimer elevated, worsening leukocytosis - Responded well to lasix 20mg IV x2; symptoms felt likely secondary to fluid overload - Duonebs, incentive spirometry - Chest CTA not ordered due to GFR < 30 - CT chest (without contrast due to low GFR) showed no acute disease, mild bronchiectasis of bases, bilateral endobronchial thickening - Continues to maintain adequate saturation on room air - Procalcitonin elevated - Antibiotic coverage escalated (discontinued rocephin, started zosyn) - Unclear if pneumonia is only source of infection - if leukocytosis persists or worsens, consider further workup - Trend CBC, BMP daily AFib with RVR - Patient mildly tachycardic on admission; EKG showed afib with RVR, converted to NSR after metoprolol 25mg PO x1 in ER - Repeat episode while in OR, which again converted back to NSR after lopressor 5mg IV x1 - Lopressor prn further episodes -Cardiology consulted: -Very likely his rapid ventricular response at the time of admission was related to his acute illness - Afib risk factors include valvular heart disease, obesity, HTN, and a dilated left atrium - When BP improves, switch amlodipine to diltiazem 240mg qd - Switch amlodipine to diltiazem 240 mg daily when blood pressure improves - 09/05/20: BP has been [id number]; diltiazem 120mg PO x1 given today, diltiazem 240mg PO qd starting 09/06/20 - Can consider cardioversion in the outpatient setting if he remains in atrial fibrillation - Exceeds weight limit for NOAC, but it's still reasonable to start eliquis 5mg bid - Heparin drip discontinued, continue eliquis 5mg bid - Echo (03/24): mildly dilated left atrium, normal LVEF, mild-moderate valvular disease Urosepsis, CHAPARRITA, obstructing ureteral calculus with hydronephrosis s/p cystoscopy, stent placement,POD#2 - CTAP shows obstructive 7mm LEFT renal calculus with mild to moderate hydronephrosis and streaking suggestive of pyelonephritis. - UCx from 08/30 growing E. coli resistant only to ampicillin and unasyn; blood cultures as above - Urology consulted: - Stern discontinued - Recommend d/c when medically stable with course of appropriate PO antibiotics, tamsulosin, prn pyridium, prn oxybutinin, and pain control - Urology will arrange outpatient follow-up - IVF held due to clinical signs of fluid overload -- however, his creatinine remains elevated; suspect this will improve with time after stent placement - Continue ceftriaxone - Holding chlorthalidone, amlodipine/benazepril, ibuprofen - Continue tamsulosin - Trend BMP Hypokalemia: resolved - Trend BMP, replete as indicated HTN - BP normotensive at this time - Holding amlodipine/benazepril, chlorthalidone HLD - Continue atorvastatin CARRI - Continue CPAP FEN: heart healthy diet Code status: full code DVT ppx: eliquis Dispo: med/surg (2) S/P ureteral stent placement: (3) New onset atrial fibrillation: (4) Hypertension: (5) Hyperlipidemia: Admission and Anticipated Discharge Date Admission Date: August 31, 2021 Supervising Physician Co-Signing Physician Notes Attending attestation Pt seen and examined in concert with Dr. Vazquez. In agreement with the documented findings as noted in the resident documentation with any exceptions or additions as noted here. Continues walking the floor without issue, improved nonproductive cough. No fevers/chills. On examination, S1/S2 nl IRR no MCG. CTAB still decreased at bilateral bases. Abd NT/ND BS+ve Leukocytosis - stable increased - potentially mobilizing inflammation from renal inflammation - trend daily - discuss w/ urology re: persistent elevation in the absence of other sx Fluid overload in the setting of sepsis w/ resuscitation and acute renal failure - resolution of sx, renal function continues to improve Sepsis (POA) w/ obstructive uropathy (resolved) and acute renal failure - urology consult - continue abx, trend BMP daily AF w/ RVR - rate controlled - start dilt today at low dose, monitor BP. Increase to 240mg if tolerating, tomorrow. Continue Eliquis Else see resident documentation as noted. Subjective Patient seen and evaluated at bedside this morning. No acute events overnight. Today, patient feels "great" and has no complaints. Denies any pain at this time. Breathing continues to improve. Patient denies CP, abdominal pain, nausea, vomiting, lightheadedness, dizziness, and diarrhea. Review of Systems Review of Systems: See HPI Physical Exam Physical Exam: Constitutional: well-appearing, no acute distress, sitting up in bed CV: irregular rhythm, no murmur appreciated, trace LE edema Resp: breath sounds minimally diminished in lower lobes, no crackles/wheezing/increased WOB MSK: no flank tenderness Neuro: alert, oriented, no focal neurologic deficit Results & Data Results & Data ([facility]) Vital Signs (Past 12 Hours) Vital Signs Temp Pulse Pulse Resp BP Pulse Ox 09/05/21 05:49 36.7 C 72 21 132/72 94 09/05/21 01:45 36.5 C 79 14 120/63 94 09/05/21 00:00 72 09/04/21 19:04 36.7 C 81 17 140/80 91 Resident Activity Tracking Resident Involvement: Resident Care Provided Care Provided: Adult Hospital Medicine (1) Hyperlipidemia Hyperlipidemia type: pure hypercholesterolemia Qualified Code(s): E78.00 - Pure hypercholesterolemia, unspecified; E78.0 - Pure hypercholesterolemia (2) Hypertension Hypertension type: essential hypertension Qualified Code(s): I10 - Essential (primary) hypertension
[2021-09-05] MEDS: APIXABAN 5 MG TABLET PO SCH ×2 (09:07→20:08)
[2021-09-05] MEDS: ASPIRIN 81 MG ECTAB PO SCH (09:07)
[2021-09-05] MEDS ORDERED: dilTIAZem HCL 120 MG CAPCR PO ONE (14:15)
[2021-09-05] MEDS ORDERED: POTASSIUM CHLORIDE CRTAB 20 MEQ TABCR PO ONE (15:26)
[2021-09-05] MEDS: TAMSULOSIN HCL 0.4 MG CAP PO SCH (20:08)
[2021-09-06 06:36] LABS: Hematocrit (blood only) 39.6 % (42-52); Hemoglobin 12.9 g/dL (14.0-18.0); Mean Corpuscular Hemoglobin 28.2 pg (25-34); Mean Corpuscular Hgb Conc 32.6 g/dL (32-36); Mean Corpuscular Volume 86.7 fL (80-100); Mean Platelet Volume 10.7 fL (7.4-10.4); Platelet Count 268 K/uL (130-400); RDW Coefficient of Variation 16.5 % (11.5-14.5); RDW Standard Deviation 52.2 fL (36.4-46.3); Red Blood Count 4.57 M/uL (4.7-6.1); White Blood Count 19.68 K/uL (4.8-10.8)
[2021-09-06 07:11] LABS: Albumin Level 2.4 gm/dl (3.4-5.0); Creatinine Clr Calc Pharmacy 74.2 ml/min
[2021-09-06 07:13] LABS: Bilirubin,Total 0.5 mg/dl (0.2-1)
[2021-09-06 07:20] LABS: ALC (manual) 0.71 K/uL (1.2-3.4); ANC (manual) 14.72 K/uL (1.4-6.5); Eosinophils # (manual) 1.42 K/uL (0-0.5); Eosinophils % (manual) 7.2 %; Lymphocytes # (manual) 0.71 K/uL (1.2-3.4); Lymphocytes % (manual) 3.6 %; Metamyelocytes # (manual) 1.06 K/uL (0-0); Metamyelocytes % (manual) 5.4 %; Monocytes # (manual) 0.89 K/uL (0.11-0.59); Monocytes % (manual) 4.5 %; Myelocytes # (manual) 0.89 K/uL (0-0); Myelocytes % (manual) 4.5 %; Neutrophils # (manual) 14.72 K/uL (1.4-6.5); Neutrophils % (manual) 74.8 %
[2021-09-06 07:33] LABS: BUN Creatinine Ratio 24.2 (10-20); Calcium 9.5 mg/dl (8.5-10.1); Est GFR (African American) 65.6 ml/min; Est GFR (Non-African American) 56.6 ml/min; Potassium 3.5 mmol/L (3.5-5.1)
[2021-09-06 07:36] LABS: Albumin Globulin Ratio 0.6 (0.9-2); Globulin 4.3 gm/dl (2.5-4.0); Total Protein 6.7 gm/dl (6.4-8.2)
--- NOTE | 2021-09-06 07:52 | Hospitalist Progress Note ---
Date of Service September 06, 2021 Assessment & Plan (1) Pyelonephritis: Plan: 70yo male with a PMH including nephrolithiasis, CARRI, moderate , HTN, HLD admitted for pyelonephritis, CHAPARRITA, obstructive nephrolithiasis, and new-onset AFib with RVR. Shortness of breath, leukocytosis - 09/02: developed progressive SOB, crackles on auscultation; CXR without acute findings, procal and d-dimer elevated, worsening leukocytosis - Responded well to Lasix 20mg IV x2; symptoms felt likely secondary to fluid overload - DuoNebs prn, incentive spirometry - Chest CTA not ordered due to GFR < 30 - CT chest (without contrast due to low GFR) showed no acute disease, mild bronchiectasis of bases, bilateral endobronchial thickening - Continues to maintain adequate saturation on room air - Procalcitonin elevated - Antibiotic coverage escalated (discontinued Rocephin, started Zosyn) - Unclear if pneumonia is only source of infection - Leukocytosis continues to increase despite adequate coverage of pyelonephritis, no clear source of additional infection, and broad-spectrum treatment - Eosinophils elevated on differential so it is possible the elevated white count may be due to allergic reaction, possibly to antibiotic -- he was on CTX initially and then Zosyn so possible it could be due to penicillin-related allergy - Will switch to ciprofloxacin today - Trend CBC, BMP daily AFib with RVR - Patient mildly tachycardic on admission; EKG showed afib with RVR, converted to NSR after metoprolol 25mg PO x1 in ER - Repeat episode while in OR, which again converted back to NSR after lopressor 5mg IV x1 - Lopressor prn further episodes -Cardiology consulted: -Very likely his rapid ventricular response at the time of admission was related to his acute illness - Afib risk factors include valvular heart disease, obesity, HTN, and a dilated left atrium - When BP improves, switch amlodipine to diltiazem 240mg qd - Switch amlodipine to diltiazem 240 mg daily when blood pressure improves - 09/05/20: BP has been [id number]; diltiazem 120mg PO x1 given, diltiazem 240mg PO qd starting 09/06/20 - Can consider cardioversion in the outpatient setting if he remains in atrial fibrillation - Exceeds weight limit for NOAC, but it's still reasonable to start eliquis 5mg bid - Heparin drip discontinued, continue eliquis 5mg bid - Echo (03/24): mildly dilated left atrium, normal LVEF, mild-moderate valvular disease Urosepsis, CHAPARRITA, obstructing ureteral calculus with hydronephrosis s/p cystoscopy, stent placement,POD#2 - CTAP shows obstructive 7mm LEFT renal calculus with mild to moderate hydronep hrosis and streaking suggestive of pyelonephritis. - UCx from 08/30 growing E. coli resistant only to ampicillin and unasyn; blood cultures as above - Urology consulted: - Stern discontinued - Recommend d/c when medically stable with course of appropriate PO antibiotics, tamsulosin, prn pyridium, prn oxybutinin, and pain control - Urology will arrange outpatient follow-up - Continue tamsulosin - Trend BMP Hypokalemia: resolved - Trend BMP, replete as indicated HTN - BP normotensive at this time - Holding amlodipine/benazepril, chlorthalidone HLD - Continue atorvastatin CARRI - Continue CPAP FEN: heart healthy diet Code status: full code DVT ppx: eliquis Dispo: med/surg (2) S/P ureteral stent placement: (3) New onset atrial fibrillation: (4) Hypertension: (5) Hyperlipidemia: Admission and Anticipated Discharge Date Admission Date: August 31, 2021 Supervising Physician Co-Signing Physician Notes Attending attestation Pt seen and examined in concert with Dr. Mendez. In agreement with the documented findings as noted in the resident documentation with any exceptions or additions as noted here. Continues walking the floor without issue, improved nonproductive cough. No fevers/chills. Leukocytosis - stable but elevated - eosinophilia noted. At this point, given that patient was on zosyn and a cpehalosporin. will switch to Fluorquinolone. will recheck cbc in AM. anticipcate discharge. will recommend 7-10 days of FQ, given bacteremia. - trend daily - discuss w/ urology re: persistent elevation in the absence of other sx Fluid overload in the setting of sepsis w/ resuscitation and acute renal failure - resolution of sx, renal function continues to improve Sepsis (POA) w/ obstructive uropathy (resolved) and acute renal failure - urology consult - continue abx, trend BMP daily AF w/ RVR - rate controlled - cont dilt today, monitor BP. Continue Eliquis Else see resident documentation as noted. Subjective Patient seen at bedside this morning. No acute events overnight. He reports that he continues to have a mild cough and feels very mildly short of breath when laying flat but this has been steadily improving. He denies fever, chills, abdominal pain, nausea, vomiting, chest pain, palpitations. Review of Systems Review of Systems: See HPI Physical Exam Physical Exam: GENERAL: A&Ox3. NAD. CHEST/LUNGS: CTAB, -mgr. No increased WOB. HEART: RRR. No m/g/r. No carotid bruits. EXTREMITIES: No cyanosis, no clubbing, no edema SKIN: Warm and dry. No rashes or lesions. PSYCHIATRIC: Euthymic affect, no SI, no pressured speech, no hallucinations NEUROLOGIC: No FND. CN II-XII grossly intact. Results & Data Results & Data ([facility]) Vital Signs (Past 12 Hours) Vital Signs Temp Pulse Pulse Resp BP Pulse Ox 09/06/21 04:10 36.6 C 67 18 105/65 90 09/06/21 00:00 67 09/05/21 23:30 36.7 C 66 18 155/82 H 94 Resident Activity Tracking Resident Involvement: Resident Care Provided Care Provided: Adult Hospital Medicine (1) Hyperlipidemia Hyperlipidemia type: pure hypercholesterolemia Qualified Code(s): E78.00 - Pure hypercholesterolemia, unspecified; E78.0 - Pure hypercholesterolemia (2) Hypertension Hypertension type: essential hypertension Qualified Code(s): I10 - Essential (primary) hypertension
[2021-09-06] MEDS: ASPIRIN 81 MG ECTAB PO SCH (08:22)
[2021-09-06] MEDS: APIXABAN 5 MG TABLET PO SCH ×2 (08:22→20:15)
[2021-09-06] MEDS: dilTIAZem HCL 240 MG CAPCR PO SCH (08:23)
[2021-09-06] MEDS: PIPERACILLIN/TAZOBACTAM 4.5 GM in DEXTROSE 5% 100 ML IV SCH ×2 (09:00→15:17)
--- NOTE | 2021-09-06 11:12 | Urology Progress Note ---
Date of Service September 06, 2021 Assessment & Plan (1) Pyelonephritis: (2) Hydronephrosis with renal and ureteral calculus obstruction: (3) S/P ureteral stent placement: Plan: - Plan of care reviewed with Dr. Bruno, on-call urologist. - Pt POD#5 s/p cystoscopy and left stent placement. - Afebrile, non-toxic appearing. - Lab work reviewed - creatinine 1.26, WBC 19.68 - continue to trend. - Urine/blood cultures from admission with E.coli. Repeat UCx no growth; Repeat BCx preliminary no growth x 24hours. - Intraop kidney urine aspirate 09/01 with E.coli. - Persistent leukocytosis could be reactive from pyelonephritis and bacteremia, also consider other source. - Antibiotic coverage changed from Rocephin to Zosyn per primary team - ID consulted. - Tolerating left ureteral stent with minimal bother. - Voiding without issue, output appears adequate. - OK for d/c from perspective once medically stable. - Continue supportive care, antibiotics, and management per primary service. - Recommend d/c when medically stable with extended course of appropriate PO antibiotics, Tamsulosin, prn Pyridium, prn Oxybutynin and prn pain medication for stent management. - Expected clinical course reviewed, all questions answered. - Will arrange outpatient follow-up with our service to discuss definitive stone management. - will sign-off, please contact us with any further questions or concerns. Admission and Anticipated Discharge Date Admission Date: August 31, 2021 Subjective Pt examined at bedside this AM. Awake, sitting up in bed on arrival. Feeling good this morning. No fevers. Minimal pain. Tolerating PO diet. No nausea or vomiting. Voiding without issue. Denies hematuria or dysuria. Eager to go home. Review of Systems Constitutional: as per Subjective / HPI Gastrointestinal: as per Subjective / HPI Genitourinary: + as per Subjective / HPI Physical Exam Constitutional: well developed and well nourished; no acute distress and not ill appearing Respiratory: normal respiratory effort and able to speak in complete sentences; no labored breathing and no audible wheezes Gastrointestinal (Abdomen): Inspection/Auscultation: abdomen normal to inspection; abdomen not distended Musculoskeletal: Head/Neck/Chest: normocephalic Skin: No visible rashes or lesions to exposed skin areas Neurologic: moves all extremities and awake Psychiatric: Orientation: alert, oriented x 3 and cooperative Results & Data ([facility]) Vital Signs (Past 12 Hours) Vital Signs Temp Pulse Pulse Resp BP Pulse Ox 09/06/21 08:06 36.6 C 78 18 151/68 H 96 09/06/21 08:00 72 09/06/21 04:10 36.6 C 67 18 105/65 90 09/06/21 00:00 67 09/05/21 23:30 36.7 C 66 18 155/82 H 94 PG Care Time/CCT Total # of Minutes Spent Total Time Spent with Patient: Total time spent is greater than 50% in coordination of care (as documented) at patient's floor/unit and/or counseling patient: Coding Level of Care Code 97956 Subseq Hosp Care Lvl 2 Diagnoses Hydronephrosis with renal and ureteral calculus obstruction N13.2 S/P ureteral stent placement Z96.0 Pyelonephritis N12
[2021-09-06] MEDS: ACETAMINOPHEN 325 MG TAB PO PRN ×2 (14:42→19:33)
[2021-09-06] MEDS: CIPROFLOXACIN / D5W 400 MG/200 ML BAG IV SCH (17:06)
[2021-09-06] MEDS: TAMSULOSIN HCL 0.4 MG CAP PO SCH (20:15)
--- NOTE | 2021-09-06 20:32 | Billing Data ---
Date of Service September 06, 2021 Coding Level of Care Code 23672 Subseq Hosp Care Lvl 3 Time Spent (min) 35 Comment chart review
[2021-09-07] MEDS: ACETAMINOPHEN 325 MG TAB PO PRN ×2 (01:35→08:09)
[2021-09-07] MEDS: CIPROFLOXACIN / D5W 400 MG/200 ML BAG IV SCH (04:46)
[2021-09-07 07:10] LABS: Hematocrit (blood only) 40.1 % (42-52); Hemoglobin 12.7 g/dL (14.0-18.0); Mean Corpuscular Hemoglobin 27.7 pg (25-34); Mean Corpuscular Hgb Conc 31.7 g/dL (32-36); Mean Corpuscular Volume 87.4 fL (80-100); Mean Platelet Volume 10.3 fL (7.4-10.4); Platelet Count 288 K/uL (130-400); RDW Coefficient of Variation 16.3 % (11.5-14.5); Red Blood Count 4.59 M/uL (4.7-6.1); White Blood Count 19.23 K/uL (4.8-10.8)
[2021-09-07 07:28] LABS: BUN Creatinine Ratio 20.3 (10-20); Calcium 9.2 mg/dl (8.5-10.1); Creatinine Clr Calc Pharmacy 77.4 ml/min; Est GFR (African American) 71.8 ml/min; Est GFR (Non-African American) 61.9 ml/min; Potassium 3.7 mmol/L (3.5-5.1)
[2021-09-07 07:33] LABS: ALC (manual) 0.98 K/uL (1.2-3.4); ANC (manual) 14.63 K/uL (1.4-6.5); Eosinophils # (manual) 0.83 K/uL (0-0.5); Eosinophils % (manual) 4.3 %; Lymphocytes # (manual) 0.98 K/uL (1.2-3.4); Lymphocytes % (manual) 5.1 %; Metamyelocytes % (manual) 2.6 %; Monocytes # (manual) 1.63 K/uL (0.11-0.59); Monocytes % (manual) 8.5 %; Myelocytes # (manual) 0.65 K/uL (0-0); Myelocytes % (manual) 3.4 %; Neutrophils # (manual) 14.63 K/uL (1.4-6.5); Neutrophils % (manual) 76.1 %
--- NOTE | 2021-09-07 07:59 | Discharge Summary ---
Date of Service September 07, 2021 Admission HPI Per Admitting Provider 70 yo M Hx nephrolithiasis, CARRI, moderate , HTN, HLD presented to the ER for chills and flank/abdominal pain as well as sensation of breathlessness. He was evaluated by Urology yesterday and had labwork and UCx ordered. In the ER patient was saturating well on room air, afebrile, tachycardic to low 100s. EKG showed AFib with RVR (no history of in the past). Labwork pending from ER visit, however notable from labwork 08/30/21 for WBC count of 16.83, K 3.4, creatinine 2.17 (baseline 1.0), UCx growing gram negative bacilli. CTAP showed 7 mm proximal left ureteral calculus with mild-moderate left hydronephrosis with perinephric stranding. Patient was given metoprolol 25mg PO and hospitalist service was consulted for admission. Patient at time of my interview denies flank or abdominal pain, chest pain, nausea or recent vomiting, diarrhea, measured fevers. He endorses some sensation of SOB with ambulation. He also notes some intermittent palpitations. Principal Diagnosis Obstructive nephrolithiasis Pyelonephritis Bacteremia Afib w/ RVR Discharge Exam GENERAL: A&Ox3. NAD. CHEST/LUNGS: CTAB, -mgr. No increased WOB. HEART: RRR. No m/g/r. No carotid bruits. EXTREMITIES: No cyanosis, no clubbing, no edema SKIN: Warm and dry. No rashes or lesions. PSYCHIATRIC: Euthymic affect, no SI, no pressured speech, no hallucinations NEUROLOGIC: No FND. CN II-XII grossly intact. Discharge Data Allergies Allergy/AdvReac Type Severity Reaction Status Date / Time No Known Allergies Allergy Unknown Verified 08/31/21 21:29 Consultations 08/31/21 21:31 ED Decision to Admit Stat 08/31/21 22:18 Consult Urology Routine 09/01/21 12:13 Consult Cardiology Routine Procedures Performed Operation Date: 09/01/21 13:20 Actual Procedures p Cystoscopy, Left Stent Placement(Left) - James Torres MD Ordered Studies 08/31/21 20:39 CT abd pelvis wo con Stat 09/01/21 10:30 FL retrograde includes kub Routine 09/03/21 12:12 CT chest diagnostic wo con Routine Hospital Course (1) Pyelonephritis: 70yo male with a PMH including nephrolithiasis, CARRI, moderate , HTN, HLD admitted for pyelonephritis, CHAPARRITA, obstructive nephrolithiasis, and new-onset AFib with RVR. Leukocytosis - associated SOB resolved - 09/02: developed progressive SOB, crackles on auscultation; CXR without acute findings, procal and d-dimer elevated, worsening leukocytosis - Responded well to Lasix 20mg IV x2; symptoms felt likely secondary to fluid overload - Chest CTA not ordered due to GFR < 30 - CT chest (without contrast due to low GFR) showed no acute disease, mild bronchiectasis of bases, bilateral endobronchial thickening - Continued to maintain adequate saturation on room air - Procalcitonin elevated -- likely secondary to pyelo/bacteremia - Antibiotic coverage escalated (discontinued Rocephin, started Zosyn) for concern of possible PNA but as above, likely his pulmonary symptoms were secondary to fluid overload - Leukocytosis continued to increase despite adequate coverage of pyelonephritis, no clear source of additional infection, and broad-spectrum treatment - Eosinophils elevated on differential, so possible the elevated white count might have been due to combination of pyelo/bacteremia and mild allergic reaction to antibiotics - he was on CTX initially and then Zosyn so possible it could be due to penicillin-related allergy - After switch to Cipro, WBC did begin to downtrend and eosinophils downtrended as well -- as such, will DC on additional 9 days of cipro and f/u with PCP to ensure AFib with RVR - Patient mildly tachycardic on admission; EKG showed afib with RVR, converted to NSR after metoprolol 25mg PO x1 in ER - Repeat episode while in OR, which again converted back to NSR after lopressor 5mg IV x1 - Lopressor prn further episodes -Cardiology consulted: -Very likely his rapid ventricular response at the time of admission was related to his acute illness - Afib risk factors include valvular heart disease, obesity, HTN, and a dilated left atrium - Switch amlodipine to diltiazem 240 mg daily when blood pressure improves - 09/05/20: BP has been [id number]; diltiazem 120mg PO x1 given, dil tiazem 240mg PO qd starting 09/06/20 - Can consider cardioversion in the outpatient setting if he remains in atrial fibrillation - Exceeds weight limit for NOAC, but it's still reasonable to start Eliquis 5mg bid - Heparin drip discontinued, continue eliquis 5mg bid - Echo (03/24): mildly dilated left atrium, normal LVEF, mild-moderate valvular disease Urosepsis, CHAPARRITA, obstructing ureteral calculus with hydronephrosis s/p cystoscopy/stent placement - CTAP shows obstructive 7mm LEFT renal calculus with mild to moderate hydronephrosis and streaking suggestive of pyelonephritis. - UCx from 08/30 growing E. coli resistant only to ampicillin and Unasyn; blood cultures as above - Urology consulted -- placed stent - Urology will arrange outpatient follow-up - Continue tamsulosin Hypokalemia: resolved HTN - Continue chlorthalidone at DC - Switch amlodipine to diltiazem as above HLD - Continue atorvastatin CARRI - Continue CPAP Dispo: Home, f/u with PCP and Urology (2) S/P ureteral stent placement: (3) New onset atrial fibrillation: (4) Hypertension: (5) Hyperlipidemia: Total Time Total Time Spent Total Time Spent (In Minutes): see attending attestation Discharge Plan Discharge Items Patient Disposition: Home - Self-Care Reason For Visit: AFIB W/ RVR, OBSTRUCTIVE NEPHROLITHASIS, UTI Discharge Diagnosis: Obstructive nephrolithiasis Pyelonephritis Bacteremia Afib w/ RVR Activity: Per Instructions section Non-emergency contact: Primary Care Provider and Urologist Call non-emergency contact if: you have any medication questions and your symptoms worsen Follow-up/Referrals: Diego Pan MD [Primary Care Provider] - 09/21/21 3:15 pm (Please follow up with Dr. Pan on Monday09/21/21 at 3:15 pm. Please arrive to the office at 3:00 pm for your appointment. If you are unable to keep this appointment, please call the office to resched eda at [phone].) Diet: Heart Healthy Addtl Attending Provider Instructions: You were admitted to [facility] due to flank and abdominal pain as well as shortness of breath and chills. You were found to have a kidney stone that was obstructing your ureter and causing fluid back up into your kidneys. This subsequently caused bacterial b uildup and infection in your kidney. This bacteria then spilled into your blood causing a bloodstream infection. You were also find to have a rapid, irregular heartbeat known as atrial fibrillation. As such, you were evaluated by urology who recommended stent placement for help with clearing the obstructing stone. Additionally, you were started on IV antibiotics for treatment of your kidney and bloodstream infections. Blood and urine cultures were drawn and you were started on ceftriaxone, which typically covers most urinary infections. After your surgery, you developed a worsening cough and shortness of breath for which you were switched to a stronger antibiotic to cover the possibility of pneumonia. However, your shortness of breath was more likely thought to be due to excess fluid, which had likely buildup around your lungs, and as such were given diuretics to help clear that fluid out. This did help with your shortness of breath. You were then found to have a rising white blood cell count, which was of unknown origin, since you had no clear source of new infection and were adequately treated for the kidney and bloodstream infections. Upon further investigation, it was thought to be possible that your rising white blood cell count was due to a mild allergic reaction to the penicillins in your first 2 antibiotics. Due to this, you were switched to an antibiotic called Ciprofloxacin, which is not derived from penicillin. This did result in a downtrend of your white blood cell count. We recommend that you finish out your antibiotic course with ciprofloxacin for 18 additional doses. For your atrial fibrillation, you were seen by Cardiology who recommended starting anticoagulation with Eliquis 5mg twice daily, as this irregular heartbeat predisposes you to forming clots and could lead to heart attacks or strokes. Additionally, it was recommended that you stop taking amlodipine and start taking diltiazem 240mg daily instead, as this will control your heart rate better. We recommend that you follow with your PCP for repeat labs to ensure that your white cell count has continued to decrease. We also recommend that you follow with Urology for stent and stone management. Additionally, we recommend following up with Cardiology for management of your atrial fibrillation and meds. Pending Studies at Discharge: No Stand-Alone Forms: My [employer], Smoking Cessation Medications and DC Order Prescriptions: New Eliquis 5 mg tablet 5 mg PO BID 90 Days Qty: 180 RF: 0 diltiazem HCl 240 mg capsule,extended release 24hr 240 mg PO DAILY 90 Days Qty: 90 RF: 0 Eliquis 5 mg tablet 5 mg PO BID 14 Days Qty: 28 RF: 0 diltiazem HCl 240 mg capsule,extended release 24hr 240 mg PO DAILY 14 Days Qty: 14 RF: 0 ciprofloxacin HCl 500 mg tablet 500 mg PO Q12H Qty: 18 RF: 0 Continued tamsulosin [Flomax] 0.4 mg capsule 0.4 mg PO HS Qty: 90 RF: 3 atorvastatin 40 mg tablet 40 mg PO DAILY Qty: 90 RF: 3 chlorthalidone 25 mg tablet 25 mg PO QAM Qty: 90 RF: 3 Centrum Silver 0.4-300-250 mg-mcg-mcg tablet 1 tab PO QAM RF: 0 tyynmcmeeav-[id number]-Fnqrupnvc serr [Osteo Bi-Flex (5-Loxin)] 1,500-400-100 mg-unit-mg tablet 1 tab PO QAM RF: 0 omega-3 acid ethyl esters 1 gram capsule 1 cap PO QAM RF: 0 aspirin 81 mg Tablet,Chewable 81 mg PO QAM RF: 0 acetaminophen [Tylenol Extra Strength] 500 mg Tablet 1,000 mg PO Q6H PRN (Reason: FEVER/PAIN) RF: 0 ibuprofen 200 mg Tablet 400 mg PO Q6H PRN (Reason: FEVER/PAIN) RF: 0 Discontinued amlodipine-benazepril [Lotrel] 10-40 mg capsule 1 cap PO QAM Qty: 90 RF: 3 Discharge Orders: Discharge Order (Routine); Ordered 09/07/21 Ordered By: Jose L Mendez Admission Data Admit Date/Time: 08/31/21 21:59 Attending Provider: Armani Torre Admit Provider: Tatyana Navarro Primary Care Provider: Diego Pan Other Providers: Filemon James ; Vinh Bruno ; Jm Be Other Interventions: Discharge Summary Assessment (RN) Last Done: 09/07/21 10:15 Supervising Physician Co-Signing Physician Notes Attending attestation Pt seen and examined in concert with Dr. Mendez. In agreement with the documented findings as noted in the resident documentation with any exceptions or additions as noted here. Continues walking the floor without issue, improved nonproductive cough. No fevers/chills. Leukocytosis - stable but elevated - eosinophilia noted. Now downtrending after switch to Fluoroquinolone. Possible allergy to pennicillins and cephalosporin. recommend to complete 9 additional days of fluoroquinolone. Fluid overload in the setting of sepsis w/ resuscitation and acute renal failure - resolution of sx, renal function continues to improve Sepsis (POA) w/ obstructive uropathy (resolved) and acute renal failure - urology consult - continue abx, AF w/ RVR - rate controlled - cont dilt today, monitor BP. Continue Eliquis (coupon given) will check blood work next week, Else see resident documentation as noted. Resident Activity Tracking Resident Involvement: Resident Care Provided Care Provided: Adult Hospital Medicine
[2021-09-07] MEDS: dilTIAZem HCL 240 MG CAPCR PO SCH (08:09)
[2021-09-07] MEDS: APIXABAN 5 MG TABLET PO SCH (08:10)
[2021-09-07] MEDS: ASPIRIN 81 MG ECTAB PO SCH (08:10)
--- NOTE | 2021-09-08 09:15 | Billing Data ---
Date of Service September 07, 2021 Coding Level of Care Code D/C DAY MANAGEMENT >30 MINS Time Spent (min) 32
== END 2021-09-07 11:49 | disposition home or self-care (01) | DRG 854 ==
LOC: ED 19:45 → 1E 21:59 → SUATTDRO 21:59 → 1E 09-01 00:17 → 2S 09-05 21:17

== ENCOUNTER 2021-09-09 15:45 | Observation (INO) ==
[2021-09-09 16:24] LABS: Hematocrit (blood only) 42.6 % (42-52); Mean Corpuscular Hemoglobin 28.7 pg (25-34); Mean Corpuscular Hgb Conc 32.9 g/dL (32-36); Mean Corpuscular Volume 87.3 fL (80-100); Mean Platelet Volume 10.2 fL (7.4-10.4); Platelet Count 353 K/uL (130-400); RDW Coefficient of Variation 16.2 % (11.5-14.5); RDW Standard Deviation 51.8 fL (36.4-46.3); Red Blood Count 4.88 M/uL (4.7-6.1); White Blood Count 17.13 K/uL (4.8-10.8)
--- NOTE | 2021-09-09 16:25 | XRay Report ---
SINGLE VIEW CHEST CLINICAL HISTORY: Dyspnea. FINDINGS: An AP, portable, upright chest radiograph is compared to study performed earlier the same d ay 09/09/2021 and correlated with chest CT dated 09/03/2021. The examination is degraded by portable te chnique and patient rotation. The heart is enlarged noting atherosclerotic calcification of the thora cic aorta. Emphysema and chronic interstitial thickening is similar to previous. There is chronic jo vation of the left hemidiaphragm and bibasilar atelectasis. No airspace consolidation or large pleura l effusion is identified There is no pneumothorax. The skeletal structures are osteopenic. There are healed right-sided rib fractures. IMPRESSION: Cardiomegaly and emphysema with no acute cardiopulmonary abnormality identified. ACT 112: Negative or not required by law. Electronically signed by: Ifeanyi Mcdonald M.D. 09/09/2021 4:24 PM
[2021-09-09 16:46] LABS: Alanine Aminotransferase 54 (12-78); Aspartate Aminotransferase 22 U/L (15-37); BUN Creatinine Ratio 20.3 (10-20); Blood Urea Nitrogen 23 mg/dl (7-18); Calcium 9.9 mg/dl (8.5-10.1); Carbon Dioxide 27 mmol/L (21-32); Chloride 107 mmol/L (98-107); Creatinine Clr Calc Pharmacy 79.8 ml/min; Est GFR (African American) 74.8 ml/min; Est GFR (Non-African American) 64.6 ml/min; Glucose 112 mg/dl (70-99); Magnesium 2.1 mg/dl (1.8-2.4); Sodium 139 mmol/L (136-145)
[2021-09-09 16:51] LABS: Albumin Globulin Ratio 0.7 (0.9-2); Alkaline Phosphatase 141 U/L (45-117); Bilirubin,Total 0.5 mg/dl (0.2-1); Globulin 4.6 gm/dl (2.5-4.0); Total Protein 7.6 gm/dl (6.4-8.2); Troponin I < 0.015 ng/ml (0-0.045)
[2021-09-09 16:53] LABS: ALC (manual) 0.58 K/uL (1.2-3.4); ANC (manual) 15.07 K/uL (1.4-6.5); Lymphocytes # (manual) 0.58 K/uL (1.2-3.4); Lymphocytes % (manual) 3.4 %; Metamyelocytes # (manual) 0.29 K/uL (0-0); Metamyelocytes % (manual) 1.7 %; Monocytes # (manual) 1.03 K/uL (0.11-0.59); Myelocytes # (manual) 0.15 K/uL (0-0); Myelocytes % (manual) 0.9 %; Neutrophils # (manual) 15.07 K/uL (1.4-6.5); RBC Morphology Unremarkable
[2021-09-09 17:08] LABS: NT Pro B Type Natriuretic Pept 2038 pg/ml (0-900)
[2021-09-09] MEDS ORDERED: FUROSEMIDE 40 MG/4 ML VIAL IV ONE (17:20)
--- NOTE | 2021-09-09 17:35 | Emergency Department Note ---
History of Present Illness General Chief Complaint: Shortness of Breath/Dyspnea Stated Complaint: DR. BAILEE PHILIPPE ([facility]) Time Seen by Provider: 09/09/21 16:28 History of Present Illness Provider Complaint: shortness of breath Onset (ago): day(s) (2) Consistency/Duration: + progressively worsening Current Pain Intensity: 0 Relieved By: + upright position Exacerbated By: + lying flat and + exertion Context: no recent illness or no recent travel Known history of: congestive heart failure Associated symptoms: + orthopnea; no chest pain, no pain with inspiration, no fever, no cough, no wheezing, no sputum production, no lower extremity pain, no polyuria, no paresthesias, no palpitations, no hemoptysis, no diaphoresis, no syncope, no abdominal pain, no rash, no chest congestion, no dizziness or no lig htheadedness Related Data Home oxygen amount: none Home Medications Medication Instructions Recorded Confirmed Type glucosamine [id number] 1 tab PO QAM 02/19/19 09/09/21 History ellis 1,500 mg-400 unit-100 mg tablet (Osteo Bi-Flex (5-Loxin)) [id number]-iyu-fymbu acid 0.4 1 tab PO QAM 02/19/19 09/09/21 History mg-lycopene 300 mcg-lutein 250 mcg tablet (Centrum Silver) omega-3 acid ethyl esters 1 gram 1 cap PO QAM cap 07/02/19 09/09/21 History capsule aspirin 81 mg chewable tablet 81 mg PO QAM 02/21/20 09/09/21 History tamsulosin 0.4 mg capsule (Flomax) 0.4 mg PO HS #90 cap 11/16/20 09/09/21 Rx atorvastatin 40 mg tablet 40 mg PO DAILY #90 tab 11/23/20 09/09/21 Rx chlorthalidone 25 mg tablet 25 mg PO QAM #90 tab 05/11/21 09/09/21 Rx acetaminophen 500 mg tablet 1,000 mg PO Q6H PRN 08/31/21 09/09/21 History (Tylenol Extra Strength) ibuprofen 200 mg tablet 400 mg PO Q6H PRN 08/31/21 09/09/21 History apixaban 5 mg tablet (Eliquis) 5 mg PO BID 90 Days #180 tab 09/07/21 09/09/21 Rx ciprofloxacin HCl 500 mg tablet 500 mg PO Q12H #18 tab 09/07/21 09/09/21 Rx diltiazem HCl 240 mg 240 mg PO DAILY 90 Days #90 cap 09/07/21 09/09/21 Rx capsule,extended release 24 hr Allergies Allergy/AdvReac Type Severity Reaction Status Date / Time No Known Allergies Allergy Unknown Verified 09/09/21 14:41 Past Med/Surg History Medical History Aortic stenosis moderate (KATHRYN 1.43cm2, MG 23.9mmhg) per 02/2020 echo Apnea, sleep CPAP BPH (benign prostatic hyperplasia) Carotid artery stenosis Complex renal cyst per ultrasound, scheduled for repeat in 1 yr Hyperlipidemia Hypertension Irregular sleep-wake rhythm, nonorganic origin Morbid obesity Nocturnal hypoxemia Osteoarthritis 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 Other No family history of adverse response to anesthesia Denies family history of Ovarian cancer Prostate cancer Myocardial infarction Lung cancer Colorectal cancer Social History Smoking Status: Never smoker Tobacco Type: Cigarettes Age Started Using Tobacco: 14; Age Quit Using Tobacco: 38; packs per day: 1.5; Years Smoked: 24; Second Hand Exposure: No; Hx Alcohol Use: No Hx Substance Use: No Preferred Language: Setswana Communication Ability: Effective Visual Impairment: Limited Hearing Ability: Normal Stitcher Standard Machine Required: Yes Beliefs That Will Affect Care: None marital status: Current Living Situation: Spouse current occupational status: retired How many Children do You have: 1 Feels Safe at Home: Yes Childhood Exposure to Second-Hand Smoke: Yes caffeine: Yes (1 cup of coffee daily ) Dental Care, Regularly: Yes Physical Activity Frequency: 3-4 Times per Week Physical Activity Frequency Comment: walks Seatbelt Use: always Sunscreen Use: No Assistive Devices: Glasses Review of Systems A total of 10 systems reviewed and were otherwise negative Physical Exam Vital Signs: Vital Signs - 24 hr 09/09/21 15:51 09/09/21 16:29 09/09/21 18:00 Temperature 36.6 C Temperature Source Temporal Artery Sc an Pulse Rate 85 Pulse Rate [Right Finger] 87 75 Pulse Rhythm Regular Pulse Rhythm [Righ t Finger] Regular Regular Pulse Strength Normal Pulse Strength [Ri ght Finger] Normal Normal Respiratory Rate 20 18 18 Respiratory Effort / Characteristics Non-Labored Sponta neous Spontaneous Non-Labored Respiratory Depth Normal Normal Normal Respiratory Patter n Regular Regular Regular Blood Pressure 224/92 H Blood Pressure [Ri ght Arm] 175/100 H 152/101 H Blood Pressure Anabel n 136 Blood Pressure Anabel n [Right Arm] 125 118 Blood Pressure Pos ition Sitting Blood Pressure Pos ition [Right Arm] Lying Pulse Oximetry 96 95 94 Oxygen Delivery Me thod Room Air Room Air Room Air Sepsis Recent Feve r Within 48 Hours No Sepsis New/Unexpla ined Change in Men michael Status No Sepsis Action Take n by Nursing No Action Required Physical Exam: Physical Exam GENERAL: He is oriented to person, place, and time. He appears well-developed and well-nourished. He does not appear distressed. HENT: Exam performed. - Head: Normocephalic and atraumatic. - Right Ear: External ear normal. No mastoid tenderness. - Left Ear: External ear normal. No mastoid tenderness. - Mouth/Throat: The oropharynx is clear and moist. No trismus in the jaw. No dental abscesses or uvula swelling. No oropharyngeal exudate or tonsillar abscesses. EYES: Conjunctivae and EOM are normal. Pupils are equal, round, and reactive to light. Right eye exhibits no discharge. Left eye exhibits no discharge. No scleral icterus. NECK: Normal range of motion. Neck supple. No JVD present. No spinous process tenderness present. No carotid bruit present. No rigidity. No tracheal deviation and normal range of motion present. No Brudzinski's sign and no Kernig's sign noted. CV: Normal rate, regular rhythm, normal heart sounds and intact distal pulses. Palpable radial pulses bue. PULM/CHEST: Inspiratory rales at the bases bilaterally. ABD: The abdomen is soft. Bowel sounds are normal. He has no distension. No mass is present. There is no tenderness. There is no rebound, no guarding, no Morales's sign and no tenderness at McBurney's point. Rovsig negative. MUSC/SKEL: 2+ pitting edema of the bilateral lower extremities. LYMPH: No cervical adenopathy. NEURO: He is alert and oriented to person, place, and time. He has normal strength. No cranial nerve deficit or sensory deficit. Coordination and gait normal. GCS eye subscore is 4. GCS verbal subscore is 5. GCS motor subscore is 6. Cerebellar tests wnl. SKIN: Skin is warm and dry. He is not diaphoretic. PSYCH: He has a normal mood and affect. Behavior is normal. Judgment and thought content normal. Course Course 1628: The patient was evaluated in room C6. A complete history and physical exam was performed Cardiac monitoring: An order was placed for continuous cardiac monitoring. The monitor shows a rate of 70 with sinus rhythm 1730: Vital signs stable. Labs within normal notes with exception of an elevated proBNP. Patient has an leukocytosis 17.1, patient has a chronically elevated white blood cell count. Troponin negative. Clinically the patient does have CHF. Lasix 40 mg IV ordered for the patient. Patient be admitted to the [facility] hospitalist team Dr. Lou notified. Administered Medications Discontinued Medications Furosemide (Furosemide 40 Mg/4 Ml Vial) 40 mg IV ONE ONE Stop: 09/09/21 17:21 Last Admin: 09/09/21 17:50 Dose: 40 mg Documented by: [id number] Medical Decision Making Laboratory Data Result diagrams: 09/09/21 16:10 09/09/21 16:10 Lab Results 09/09/21 09/09/21 09/09/21 Range/Units 16:10 16:10 16:10 WBC 17.13 H (4.8-10.8) K/uL RBC 4.88 (4.7-6.1) M/uL Hgb 14.0 (14.0-18.0) g/dL Hct 42.6 (42-52) % MCV 87.3 (80-100) fL MCH 28.7 (25-34) pg MCHC 32.9 (32-36) g/dL RDW Std Deviation 51.8 H (36.4-46.3) fL RDW Coeff of Jose 16.2 H (11.5-14.5) % Plt Count 353 (130-400) K/uL MPV 10.2 (7.4-10.4) fL Neutrophils % (Manual) 88.0 % Lymphocytes % (Manual) 3.4 % Monocytes % (Manual) 6.0 % Metamyelocytes % (Man) 1.7 % Myelocytes % (Man) 0.9 % Neutrophils # (Manual) 15.07 H (1.4-6.5) K/uL Total Absolute Neuts 15.07 H (1.4-6.5) K/uL Lymphocytes # (Manual) 0.58 L (1.2-3.4) K/uL Total Abs Lymphocytes 0.58 L (1.2-3.4) K/uL Monocytes # (Manual) 1.03 H (0.11-0.59) K/uL Metamyelocytes # (Man) 0.29 H (0-0) K/uL Myelocytes # (Manual) 0.15 H (0-0) K/uL RBC Morphology Unremarkable PT Cancelled INR Cancelled APTT Cancelled PTT Ratio Cancelled Sodium 139 (136-145) mmol/L Potassium 4.0 D (3.5-5.1) mmol/L Chloride 107 (98-107) mmol/L Carbon Dioxide 27 (21-32) mmol/L Anion Gap 5.0 (3-11) BUN 23 H (7-18) mg/dl Creatinine 1.13 (0.6-1.4) mg/dl Est Cr Clr Drug Dosing 79.8 ml/min Est GFR ( Amer) 74.8 ml/min Est GFR (Non-Af Amer) 64.6 ml/min BUN/Creatinine Ratio 20.3 H (10-20) Glucose 112 H (70-99) mg/dl Calcium 9.9 (8.5-10.1) mg/dl Magnesium 2.1 (1.8-2.4) mg/dl Total Bilirubin 0.5 (0.2-1) mg/dl AST 22 (15-37) U/L ALT 54 (12-78) Alkaline Phosphatase 141 H (45-117) U/L Troponin I < 0.015 (0-0.045) ng/ml NT-Pro-B Natriuret Pep 8 H (0-900) pg/ml Total Protein 7.6 (6.4-8.2) gm/dl Albumin 3.0 L (3.4-5.0) gm/dl Globulin 4.6 H (2.5-4.0) gm/dl Albumin/Globulin Ratio 0.7 L (0.9-2) Specimen Hemolysis 09/09/21 Range/Units 18:32 WBC (4.8-10.8) K/uL RBC (4.7-6.1) M/uL Hgb (14.0-18.0) g/dL Hct (42-52) % MCV (80-100) fL MCH (25-34) pg MCHC (32-36) g/dL RDW Std Deviation (36.4-46.3) fL RDW Coeff of Jose (11.5-14.5) % Plt Count (130-400) K/uL MPV (7.4-10.4) fL Neutrophils % (Manual) % Lymphocytes % (Manual) % Monocytes % (Manual) % Metamyelocytes % (Man) % Myelocytes % (Man) % Neutrophils # (Manual) (1.4-6.5) K/uL Total Absolute Neuts (1.4-6.5) K/uL Lymphocytes # (Manual) (1.2-3.4) K/uL Total Abs Lymphocytes (1.2-3.4) K/uL Monocytes # (Manual) (0.11-0.59) K/uL Metamyelocytes # (Man) (0-0) K/uL Myelocytes # (Manual) (0-0) K/uL RBC Morphology PT 10.9 INR 1.1 APTT 29.3 PTT Ratio 1.1 Sodium (136-145) mmol/L Potassium (3.5-5.1) mmol/L Chloride (98-107) mmol/L Carbon Dioxide (21-32) mmol/L Anion Gap (3-11) BUN (7-18) mg/dl Creatinine (0.6-1.4) mg/dl Est Cr Clr Drug Dosing ml/min Est GFR ( Amer) ml/min Est GFR (Non-Af Amer) ml/min BUN/Creatinine Ratio (10-20) Glucose (70-99) mg/dl Calcium (8.5-10.1) mg/dl Magnesium (1.8-2.4) mg/dl Total Bilirubin (0.2-1) mg/dl AST (15-37) U/L ALT (12-78) Alkaline Phosphatase (45-117) U/L Troponin I (0-0.045) ng/ml NT-Pro-B Natriuret Pep (0-900) pg/ml Total Protein (6.4-8.2) gm/dl Albumin (3.4-5.0) gm/dl Globulin (2.5-4.0) gm/dl Albumin/Globulin Ratio (0.9-2) Specimen Hemolysis Imaging Data Radiologist's Impression: Chest X-Ray 09/09/21 15:54 SINGLE VIEW CHEST CLINICAL HISTORY: Dyspnea. FINDINGS: An AP, portable, upright chest radiograph is compared to study performed earlier the same day 09/09/2021 and correlated with chest CT dated 09/03/2021. The examination is degraded by portable technique and patient rotation. The heart is enlarged noting atherosclerotic calcification of the thoracic aorta. Emphysema and chronic interstitial thickening is similar to previous. There is chronic elevation of the left hemidiaphragm and bibasilar atelectasis. No airspace consolidation or large pleural effusion is identified There is no pneumothorax. The skeletal structures are osteopenic. There are healed right-sided rib fractures. IMPRESSION: Cardiomegaly and emphysema with no acute cardiopulmonary abnormality identified. ACT 112: Negative or not required by law. Electronically signed by: Ifeanyi Mcdonald M.D. 09/09/2021 4:24 PM ECG Data Interpretation: Sinus arrhythmia with rate of 85. GA 182 QRS [address] elevation or ST depression. PVCs present. MDM Narrative Vital signs stable. Labs within normal notes with exception of an elevated proBNP. Patient has an leukocytosis 17.1, patient has a chronically elevated white blood cell count. Troponin negative. Clinically the patient does have CHF. Lasix 40 mg IV ordered for the patient. Patient be admitted to the [facility] hospitalist team Dr. Lou notified. Impression & Plan Congestive heart failure Discharge Plan Visit Data Chief Complaint: Shortness of Breath/Dyspnea Stated Complaint: SOB, REFR'D ([facility]) Discharge Problem: Congestive heart failure Patient Disposition: Being Evaluated by Hospitalist Forms Stand Alone Forms: [facility] Prescriptions Prescriptions: No Action tamsulosin [Flomax] 0.4 mg capsule 0.4 mg PO HS Qty: 90 RF: 3 atorvastatin 40 mg tablet 40 mg PO DAILY Qty: 90 RF: 3 chlorthalidone 25 mg tablet 25 mg PO QAM Qty: 90 RF: 3 Centrum Silver 0.4-300-250 mg-mcg-mcg tablet 1 tab PO QAM RF: 0 [id number] serr [Osteo Bi-Flex (5-Loxin)] 1,500-400-100 mg-unit-mg tablet 1 tab PO QAM RF: 0 omega-3 acid ethyl esters 1 gram capsule 1 cap PO QAM RF: 0 aspirin 81 mg Tablet,Chewable 81 mg PO QAM RF: 0 acetaminophen [Tylenol Extra Strength] 500 mg Tablet 1,000 mg PO Q6H PRN (Reason: FEVER/PAIN) RF: 0 ibuprofen 200 mg Tablet 400 mg PO Q6H PRN (Reason: FEVER/PAIN) RF: 0 Eliquis 5 mg tablet 5 mg PO BID 90 Days Qty: 180 RF: 0 diltiazem HCl 240 mg capsule,extended release 24hr 240 mg PO DAILY 90 Days Qty: 90 RF: 0 ciprofloxacin HCl 500 mg tablet 500 mg PO Q12H Qty: 18 RF: 0 Referrals Referrals: Diego Pan MD [Primary Care Provider] -
--- NOTE | 2021-09-09 17:58 | History & Physical Report ---
Date of Service September 09, 2021 Assessment & Plan (1) Dyspnea: (2) Orthopnea: (3) Leukocytosis: (4) Hypertension: (5) Hyperlipidemia: (6) Afib: Plan: 70 yo M Hx obstructive nephrolithiasis, CARRI, moderate , HTN, HLD, recent admission for urosepsis and E. coli bacteremia admitted for observation dyspnea and orthopnea, with leukocytosis of unclear cause. Shortness of breath, orthopnea: Presented to the ER with SOB worse with lying flat. No hypoxia and vitals stable, though tachypneic with lying flat. Symptoms possibly multifactorial with highest suspicion for mild fluid overload superimposed on chronic emphysema. BNP elevated, with some pulmonary congestion on CXR. No evidence of pneumonia. Procalcitonin added to labwork. COVID 19, influenza tests pending. Received Lasix 40mg IV x1 in ER. Defer further diuretics for now to day team; monitor intake/output. Low likelihood of PE given not hypoxic nor tachycardic, and has been on on Eliquis since last admission. Last Echo 03/2021 with moderate , no evidence of systolic dysfunction at that time. Given presentation this admission will ordered repeat Echocardiogram. Cardiology consulted and appreciate recommendations with regard to valvular disease and question of fluid overload. Leukocytosis: Unclear etiology. Noted to have leukocytosis on labwork as far back as 03/2020. Recently admitted for E. coli bacteremia / UTI with obstructive nephrolithiasis, now s/p stent by Urology which is still in place. Discharged 09/07/21 on ciprofloxacin to complete 09/16 for complicated UTI. Given persistent leukocytosis with unclear cause, and stent still in place, have ordered repeat UA with UCx. Peripheral smear also ordered to evaluate for cellular dysplasia. AFib: Patient in AFib however not in RVR. Continue diltiazem for rate control, Eliquis for anticoagulation. HTN: Continue diltiazem, chlorthalidone. Defer medication adjustment to PCP. HLD: Continue atorvastatin. CARRI: CPAP qHS. Code Status: FULL CODE FEN: Low sodium diet DVT ppx: Eliquis Dispo: Med/Surg with Telemetry History of Present Illness Chief Complaint: shortness of breath Primary Care Provider: Diego Pan MD 70 yo M Hx nephrolithiasis, CARRI, moderate , HTN, HLD, recent admission for obstructive nephrolithiasis and E. coli bacteremia presented to the ER today a fter seeing his PCP for complaints of SOB and orthopnea. Patient denies fevers, chills, chest pain or palpitations, abdominal pain, diarrhea, dysuria, hematuria, urinary urgency/frequency, back pain, nausea. CXR with pulmonary congestion without pleural effusion, pneumonia. WBC count elevated to 17.13 (had been elevated during last admission). BNP elevated to 2000 (elevated to such on last admission). In the ER patient received Lasix 40mg IV x1 for suspicion of fluid overload (orthopnea, worsening LE edema). Hospitalist service was consulted for observation. Allergies Allergy/AdvReac Type Severity Reaction Status Date / Time No Known Allergies Allergy Unknown Verified 09/09/21 14:41 Home Medications Medication Instructions Recorded Confirmed Type glucosamine [id number] 1 tab PO QAM 02/19/19 09/09/21 History ellis 1,500 mg-400 unit-100 mg tablet (Osteo Bi-Flex (5-Loxin)) [id number]-[id number]-[id number] acid 0.4 1 tab PO QAM 02/19/19 09/09/21 History mg-lycopene 300 mcg-lutein 250 mcg tablet (Centrum Silver) omega-3 acid ethyl esters 1 gram 1 cap PO QAM cap 07/02/19 09/09/21 History capsule aspirin 81 mg chewable tablet 81 mg PO QAM 02/21/20 09/09/21 History tamsulosin 0.4 mg capsule (Flomax) 0.4 mg PO HS #90 cap 11/16/20 09/09/21 Rx atorvastatin 40 mg tablet 40 mg PO DAILY #90 tab 11/23/20 09/09/21 Rx chlorthalidone 25 mg tablet 25 mg PO QAM #90 tab 05/11/21 09/09/21 Rx acetaminophen 500 mg tablet 1,000 mg PO Q6H PRN 08/31/21 09/09/21 History (Tylenol Extra Strength) ibuprofen 200 mg tablet 400 mg PO Q6H PRN 08/31/21 09/09/21 History apixaban 5 mg tablet (Eliquis) 5 mg PO BID 90 Days #180 tab 09/07/21 09/09/21 Rx ciprofloxacin HCl 500 mg tablet 500 mg PO Q12H #18 tab 09/07/21 09/09/21 Rx diltiazem HCl 240 mg 240 mg PO DAILY 90 Days #90 cap 09/07/21 09/09/21 Rx capsule,extended release 24 hr Past Med/Surg History Medical History Aortic stenosis moderate (KATHRYN 1.43cm2, MG 23.9mmhg) per 02/2020 echo Apnea, sleep CPAP BPH (benign prostatic hyperplasia) Carotid artery stenosis Complex renal cyst per ultrasound, scheduled for repeat in 1 yr Hyperlipidemia Hypertension Irregular sleep-wake rhythm, nonorganic origin Morbid obesity Nocturnal hypoxemia Osteoarthritis 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 Other No family history of adverse response to anesthesia Denies family history of Ovarian cancer Prostate cancer Myocardial infarction Lung cancer Colorectal cancer Social History Smoking Status: Never smoker Tobacco Type: Cigarettes Age Started Using Tobacco: 14; Age Quit Using Tobacco: 38; packs per day: 1.5; Years Smoked: 24; Second Hand Exposure: No; Hx Alcohol Use: No Hx Substance Use: No Preferred Language: Kazakh Communication Ability: Effective Visual Impairment: Limited Hearing Ability: Normal Ceramic Tile Installation Helper Required: Yes Beliefs That Will Affect Care: None marital status: Current Living Situation: Spouse current occupational status: retired How many Children do You have: 1 Feels Safe at Home: Yes Childhood Exposure to Second-Hand Smoke: Yes caffeine: Yes (1 cup of coffee daily ) Dental Care, Regularly: Yes Physical Activity Frequency: 3-4 Times per Week Physical Activity Frequency Comment: walks Seatbelt Use: always Sunscreen Use: No Assistive Devices: Glasses Review of Systems Review of Systems: All systems reviewed & are unremarkable except as noted in HPI & below Constitutional: no fever, no chills and no malaise Respiratory: + dyspnea; no cough Cardiovascular: + edema; no chest pain and no palpitations Gastrointestinal: no abdominal pain, no constipation and no diarrhea/loose stools Physical Exam Constitutional: WD/WN, vitals as above Eyes: PERRL, conjunctivae normal, anicteric sclerae ENMT: external ear and nose normal, oropharynx normal Neck: normal visual inspection Respiratory: normal respiratory effort, lungs clear to auscultation decreased air movement in bilateral lung bases no crackles Cardiovascular: Heart Sounds:+ murmur (RUSB 2/6 murmur) Extremities:2+ pitting edema bilateral LE to mid-watts HR irregularly irregular, non-tachycardic Gastrointestinal (Abdomen): normal bowel sounds, soft, nontender, no hepatosplenomegaly Musculoskeletal: no cyanosis or clubbing, extremities motor strength 5/5 Skin: no rashes, warm and dry Neurologic: Normal speech. Bilateral UE, LE, and face without sensory or motor deficits. No tremor. Psychiatric: A+Ox3, euthymic affect Results & Data Results & Data ([facility]) Vital Signs (Past 12 Hours) Vital Signs Temp Pulse Pulse Resp BP BP Pulse Ox 09/09/21 16:29 87 18 175/100 H 95 09/09/21 15:51 36.6 C 85 20 224/92 H 96 Supervising Physician Co-Signing Physician Notes Discussed patient with resident, patient briefly seen and evaluated. This is a 70-year-old male who was recently discharged after a nephrolithiasis. Patient had a stent placed at that time and was subsequently discharged. He returns complaining of dyspnea and lower extremity edema. Patient does have some evidence of fluid overload, especially in the lower extremities. His lungs have no rhonchi or rales. He does have a faint systolic ejection murmur. He is not hypoxic at time my evaluation is comfortable in room air. Plan to monitor overnight, patient was given IV Lasix. Reevaluation morning, patient feels well may be able to be discharged home, possibly with low-dose p.o. diuretic. I do see that he is already on chlorthalidone 25 mg daily. Resident Activity Tracking Resident Involvement: Resident Care Provided Care Provided: Adult [facility] Medicine (1) Hypertension Hypertension type: essential hypertension Qualified Code(s): I10 - Essential (primary) hypertension (2) Hyperlipidemia Hyperlipidemia type: pure hypercholesterolemia Qualified Code(s): E78.00 - Pure hypercholesterolemia, unspecified; E78.0 - Pure hypercholesterolemia
[2021-09-09 19:00] LABS: INR 1.1 (0.9-1.1); Partial Thromboplastin Ratio 1.1; Partial Thromboplastin Time 29.3 Seconds (21.0-31.0); Prothrombin Time 10.9 Seconds (9.0-12.0)
[2021-09-09] MEDS ORDERED: ACETAMINOPHEN 500 MG TAB PO STA (19:10)
[2021-09-09 19:31] LABS: Influenza A virus by PCR Negative (Neg); Influenza B virus by PCR Negative (Neg); RSV by PCR Negative (Neg); SARS CoV2 RNA(COVID-19) InHosp NEGATIVE (Negative)
[2021-09-09] MEDS: CIPROFLOXACIN 500 MG TAB PO SCH (19:31)
[2021-09-09] MEDS ORDERED: POLYETHYLENE (MIRALAX) 17 GM PACK PO PRN (22:19)
[2021-09-09 22:55] LABS: Appearance Urine Cloudy (Clear); Bacteria Urine Automated Negative (Negative); Bilirubin Urine Negative (Negative); Blood Urine 3+ (Negative); Color Urine Yellow; Epithelial Cell Urine Auto 0-5 /lpf (0-5); Glucose Urine UA Negative (Negative); Ketones Urine Negative (Negative); Leukocyte Esterase Urine 2+ (Negative); Nitrite Urine Negative (Negative); Protein Urine Trace (Negative); Specific Gravity Urine 1.009 (1.000-1.030); Urobilinogen Urine Negative (Negative)
[2021-09-09 23:15] LABS: RBC Urine Automated >30 /hpf (0-4)
[2021-09-09] MEDS: TAMSULOSIN HCL 0.4 MG CAP PO SCH (23:33)
[2021-09-09] MEDS: APIXABAN 5 MG TABLET PO SCH (23:33)
[2021-09-10] MEDS: ACETAMINOPHEN 325 MG TAB PO PRN ×4 (00:14→23:57)
[2021-09-10] MEDS: CIPROFLOXACIN 500 MG TAB PO SCH ×2 (05:28→18:45)
--- NOTE | 2021-09-10 08:11 | Hospitalist Progress Note ---
Date of Service September 10, 2021 Assessment & Plan (1) Dyspnea: (2) Orthopnea: (3) Leukocytosis: (4) Hypertension: (5) Hyperlipidemia: (6) Afib: Plan: 70 yo M Hx obstructive nephrolithiasis, CARRI, moderate , HTN, HLD, recent admission for urosepsis and E. coli bacteremia admitted for observation dyspnea and orthopnea, with leukocytosis of unclear cause. Shortness of breath, orthopnea: - Presented with SOB worse with lying flat. No hypoxia and vitals stable, though tachypneic with lying flat. - BNP elevated, with minimal pulmonary congestion on CXR. No evidence of pneumonia. Procalcitonin negative. - COVID19 and Influenza negative - Low likelihood of PE given not hypoxic nor tachycardic, and has been on on Eliquis since last admission. - Repeat Echo with normal LV systolic function, moderate to severe aortic stenosis (see TTE report for further details) - Cardiology consult: - Likely most of his symptoms are related to pulmonary vascular congestion. However, there are some elements of his presentation which are not consistent with this diagnosis. - Consider pulmonary process/infection if no significant improvement with diuresis - If significant improvement, likely benefit from daily diuretic (chlorthalidone vs Lasix) - Continue with Lasix 40mg IV BID until he is clinically dry - If not back to baseline at this time consider possibility of re-imaging for possible development of pulmonary infectious process -Symptoms likely multifactorial he does have some symptoms consistent with fluid overload, but also reports a 1.5 pack/day smoking history for over 20 years (quit decades ago) and has never had PFTs -Recommend PFTs as an outpatient once back to baseline Valvular heart disease: - Echo with moderate to severe - Cardio consult: -Does have fairly severe aortic stenosis -Progressed slightly since his last echo in March -Do not believe this is likely responsible for his acute symptoms -We will have a better understanding of the nature of his valvular disease when he is back to his baseline and more ambulatory -Did report progressive dyspnea over the course of a year or so, accompanied by an element of exercise intolerance Leukocytosis: - Unclear etiology. Noted to have leukocytosis on lab work as far back as 03/2020. - Recently admitted for E. coli bacteremia / UTI with obstructive nephrolithiasis, now s/p stent by Urology which is still in place. - Discharged 09/07/21 on ciprofloxacin to complete 09/16 for complicated UTI. - UCx pending - Peripheral smear: Leukocytosis is primarily due to increased numbers of cytologically unremarkable PMN leukocytes consistent with a leukemoid reaction (see path report from 09/09 for further info) - Continue to monitor as patient still has ureteral stent in place and these may become infected AFib: - Patient in AFib however not in RVR. - Continue diltiazem for rate control, Eliquis for anticoagulation. HTN: - Continue diltiazem, chlorthalidone. - Defer medication adjustment to PCP. HLD: - Continue atorvastatin. CARRI: - CPAP qHS. - Reports consistent usage (about 98% per patient) of his CPAP at home -- only misses when on long trips Code Status: FULL CODE FEN: Low sodium diet DVT ppx: Eliquis Dispo: Med/Surg with Telemetry Admission and Anticipated Discharge Date Admission Date: September 09, 2021 Supervising Physician Co-Signing Physician Notes Patient seen and examined, chart reviewed, case discussed with Dr. Elisha Martinez and I agree with the assessment and plan as above except as otherwise noted General: A&Ox3. NAD. Cooperative. HEENT: Atraumatic, normocephalic. Pulm: CTAB A&P. -wheezes, -rales, -rhonchi. Symmetrical chest rise. No increase work of breathing. No respiratory distress. +Orthopnea Cardiac: RRR, +systolic murmur. Radial pulses intact and symmetrical. All labs and images reviewed Is a 70-year-old male who presents for management of shortness of breath/orthopnea. Has some associated leg swelling, although his chest x-ray is relatively unremarkable. We will continue with Lasix at this time and follow for improvement. Chest x-ray does not show any obvious infectious process. He has a [id number] history of tobacco use in remission so is at risk for COPD, although has not had any PFTs and has not experienced any wheezing or sputum change in his symptoms are only present while laying down. No suspicion that this is related to his aortic stenosis, while this has progressed to moderate to severe he is able to ambulate a fair distance although does note some progressive dyspnea and exercise intolerance over the last year, but is able to walk around the room comfortably and up to 30 feet without symptoms. Has developed some sinus congestion, may have some early infectious process contributing to symptoms. Low suspicion for PE as he has not been hypoxic, tachycardic, and is anticoagulated on a DOAC. We will continue treatment with diuretics, consider follow-up CT if worsening or not improving. Should have PFTs as an outpatient once back to baseline for COPD/tobacco follow-up. Subjective Seen in his room. Patient is either standing or sitting. He reports that he is unable to lay down or even lean back much further than 90 degrees as he becomes short of breath immediately. He says that this feels like he is unable to fully fill his lungs. Denies fever, chills, cough, chest pain, palpitations, urinary discomfort, abdominal pain, back pain. Review of Systems Review of Systems: Per subjective Physical Exam Physical Exam: GENERAL: A&Ox3. NAD. HEENT: PERRL, EOMI. Moist mucous membranes. NECK: No JVD. No lymphadenopathy. CHEST/LUNGS: CTAB A/P. No crackles, wheezes, rales, rhonchi. HEART: RRR. No m/g/r. ABDOMEN: NT/ND, soft. BS+ x4 EXTREMITIES: No cyanosis, no clubbing. BLE with 1+ pitting edema bilaterally. SKIN: Warm and dry. No rashes or lesions. PSYCHIATRIC: Euthymic affect, no SI, no pressured speech, no hallucinations NEUROLOGIC: No FND. CN II-XII grossly intact. Results & Data Results & Data ([facility]) Vital Signs (Past 12 Hours) Vital Signs Temp Pulse Pulse Resp BP BP Pulse Ox 09/10/21 05:26 74 20 125/70 95 09/10/21 02:04 74 20 143/77 H 96 09/09/21 22:19 98 H 18 156/95 H 97 09/09/21 21:12 36.8 C 85 18 155/99 H 96 Pulse Ox 09/10/21 05:26 95 09/10/21 02:04 96 09/09/21 22:19 09/09/21 21:12 Resident Activity Tracking Resident Involvement: Resident Care Provided Care Provided: Adult [facility] Medicine (1) Hyperlipidemia Hyperlipidemia type: pure hypercholesterolemia Qualified Code(s): E78.00 - Pure hypercholesterolemia, unspecified; E78.0 - Pure hypercholesterolemia (2) Hypertension Hypertension type: essential hypertension Qualified Code(s): I10 - Essential (primary) hypertension
[2021-09-10] MEDS: ATORVASTATIN 40 MG TAB PO SCH (08:12)
[2021-09-10] MEDS: dilTIAZem HCL 240 MG CAPCR PO SCH (08:12)
[2021-09-10] MEDS: APIXABAN 5 MG TABLET PO SCH ×2 (08:12→19:52)
[2021-09-10] MEDS ORDERED: CHLORTHALIDONE 25 MG TAB PO SCH (09:00)
--- NOTE | 2021-09-10 10:18 | XCELERA ---
[id number]
[2021-09-10] MEDS: FUROSEMIDE 40 MG/4 ML VIAL IV SCH ×2 (10:29→19:52)
--- NOTE | 2021-09-10 10:30 | Cardiology Consultation ---
Date of Consultation September 10, 2021 Assessment & Plan (1) Afib: (2) Dyspnea: (3) Aortic stenosis: (4) Valvular heart disease: 1. Dyspnea: His symptoms are consistent with orthopnea. Does have an element of mild peripheral edema. However, his lung examination is benign and his chest x-ray did not demonstrate severe pulmonary vascular congestion. Does have an elevated BNP. He states that his weight is actually down from when he was admitted to the hospital previously. I would suspect that most of his symptoms are related to pulmonary vascular congestion. However, there are some elements of his presentation which are not consistent with this diagnosis. I would have a low suspicion for a primary pulmonary process if he does not demonstrate significant improvement with diuresis. I think aggressive diuresis is warranted. We can monitor his renal function, electrolytes and clinical response. If he has an element of intravascular depletion based on laboratory studies without significant improvement in symptoms, then an alternate diagnosis should be entertained. If he has some significant improvement in symptoms with aggressive diuresis, he would likely benefit from a daily diuretic at the time of discharge. He was on chlorthalidone previously. I would think 20 mg of Lasix daily as an alternative would be reasonable. 2. Atrial fibrillation: He has an irregular heart rhythm most of the time. Through most of his hospitalization this represented simple atrial ectopy. Some of his prior EKGs were misinterpreted as atrial fibrillation. However, telemetry monitoring during his admission did suggest some periods of true atrial fibrillation. He does not appear to be overtly symptomatic. whether he cycles in and out of atrial fibrillation is unclear. In any event, he should continue his diltiazem and apixaban. 3. Valvular heart disease: He does have fairly severe aortic stenosis. This may have progressed slightly since his last echocardiogram obtained in March of last year. However, I do not believe this is likely responsible for his acute symptoms. I think we have a better understanding of the nature of his valvular disease when he is back to his baseline and more ambulatory. He did report progressive dyspnea over the course of a year or so. This was accompanied by an element of exercise intolerance. History of Present Illness Reason for Consultation: Dyspnea Requesting Physician: Ramon Attending Physician: Diego Perez MD History of Present Illness the patient is a 70-year-old gentleman with a history of aortic stenosis who was recently admitted for pyelonephritis due to nephrolithiasis and obstruction. During the patient's hospitalization he was noted to have atrial fibrillation. He was started on anticoagulation. Rate control was maintained with diltiazem. He had an extended hospitalization due to persistent leukocytosis. He was discharged from the hospital 3 days ago. He returned yesterday with symptoms dyspnea. He was evaluated in the outpatient setting for orthopnea and progres sive shortness of breath. He was referred to the emergency room. Imaging studies were performed which did not demonstrate any acute pulmonary process. Serum studies revealed an elevated proBNP. the patient was given a single dose of diuretic. Patient states that he did have some breathing trouble towards the end of his admission. This seemed to improve with diuresis. After discharge he had difficulty sleeping at nighttime as he could not lie flat in bed. This would produce significant breathing difficulty. He had a incentive spirometer which was initially easy to perform, but overall expiratory effort decreased in the past 2 days. He became more short of breath even at rest and with mild exertion. Based on the symptoms he was referred to the emergency room for evaluation. He did not report chest pain. He has not report dizziness or lightheadedness. He does report some mild peripheral edema. he reports eating somewhat small meal since discharge, but did eat some sauerkraut perhaps had more sodium than he should have. This morning he claims to be feeling slightly better. Still some difficulty lying flat. He did not sleep well last night as a result. Allergies Allergy/AdvReac Type Severity Reaction Status Date / Time No Known Allergies Allergy Unknown Verified 09/09/21 14:41 Home Medications Medication Instructions Recorded Confirmed Type glucosamine [id number] 1 tab PO QAM 02/19/19 09/09/21 History ellis 1,500 mg-400 unit-100 mg tablet (Osteo Bi-Flex (5-Loxin)) ujbzesdd-fwo-vtsyj acid 0.4 1 tab PO QAM 02/19/19 09/09/21 History mg-lycopene 300 mcg-lutein 250 mcg tablet (Centrum Silver) omega-3 acid ethyl esters 1 gram 1 cap PO QAM cap 07/02/19 09/09/21 History capsule aspirin 81 mg chewable tablet 81 mg PO QAM 02/21/20 09/09/21 History tamsulosin 0.4 mg capsule (Flomax) 0.4 mg PO HS #90 cap 11/16/20 09/09/21 Rx atorvastatin 40 mg tablet 40 mg PO DAILY #90 tab 11/23/20 09/09/21 Rx chlorthalidone 25 mg tablet 25 mg PO QAM #90 tab 05/11/21 09/09/21 Rx acetaminophen 500 mg tablet 1,000 mg PO Q6H PRN 08/31/21 09/09/21 History (Tylenol Extra Strength) ibuprofen 200 mg tablet 400 mg PO Q6H PRN 08/31/21 09/09/21 History apixaban 5 mg tablet (Eliquis) 5 mg PO BID 90 Days #180 tab 09/07/21 09/09/21 Rx ciprofloxacin HCl 500 mg tablet 500 mg PO Q12H #18 tab 09/07/21 09/09/21 Rx diltiazem HCl 240 mg 240 mg PO DAILY 90 Days #90 cap 09/07/21 09/09/21 Rx capsule,extended release 24 hr Patient History Medical History Aortic stenosis moderate (KATHRYN 1.43cm2, MG 23.9mmhg) per 02/2020 echo Apnea, sleep CPAP BPH (benign prostatic hyperplasia) Carotid artery stenosis Complex renal cyst per ultrasound, scheduled for repeat in 1 yr Hyperlipidemia Hypertension Irregular sleep-wake rhythm, nonorganic origin Morbid obesity Nocturnal hypoxemia Osteoarthritis 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 Other No family history of adverse response to anesthesia Denies family history of Ovarian cancer Prostate cancer Myocardial infarction Lung cancer Colorectal cancer Social History Smoking Status: Former smoker Tobacco Type: Cigarettes Age Started Using Tobacco: 14; Age Quit Using Tobacco: 38; packs per day: 1.5; Years Smoked: 24; Second Hand Exposure: No; Hx Alcohol Use: Yes Alcohol type: wine and hard liquor Alcohol type Comment: 1- 2 drinks weekly, "if that" Hx Substance Use: No Preferred Language: Senegalese Communication Ability: Effective Visual Impairment: Limited Hearing Ability: Normal Machine Maintenance Technician Required: No Beliefs That Will Affect Care: None marital status: Current Living Situation: Significant Other current occupational status: retired How many Children do You have: 1 Other Information That Helps Us Care for You: No Feels Safe at Home: Yes Safety Concerns: Feels Safe At This Time Childhood Exposure to Second-Hand Smoke: Yes caffeine: Yes (1 cup of coffee daily ) Dental Care, Regularly: Yes Physical Activity Frequency: 3-4 Times per Week Physical Activity Frequency Comment: walks Seatbelt Use: always Sunscreen Use: No Assistive Devices: None Review of Systems Review of Systems: Per HPI. no flank pain. No rashes. No fevers or chills. No coughing. Physical Exam Physical Exam: The patient is alert and oriented. Mood and affect appeared normal. He answered all questions appropriately. Obese HEENT: Pupils are equal and reactive to light and accommodation. Extraocular movements are intact. The sclerae are anicteric. Neuro: Cranial nerves intact Neck: Patient's neck is supple. He has palpable carotid pulses bilaterally without bruits on auscultation. There is no evidence of jugular venous distention. The thyroid is not enlarged. Lungs: Clear to auscultation bilaterally. He has good air movement without use of accessory muscles. No rales wheezes or rhonchi. Cardiac: Heart demonstrates a regular rate and rhythm with frequent ectopy. Normal S1 and S2. crescendo systolic murmur Pulses: The patient has palpable radial pulses bilaterally that are equal in intensity Extremities: There was no evidence of hypoperfusion. There is no cyanosis or clubbing. mild lower extremity edema bilaterally Skin: I did not appreciate any rashes on examination today. Results & Data ([facility]) Vital Signs (Past 12 Hours) Vital Signs Pulse Resp BP Pulse Ox Pulse Ox 09/10/21 05:26 74 20 125/70 95 95 09/10/21 02:04 74 20 143/77 H 96 96 09/09/21 22:19 98 H 18 156/95 H 97 Laboratory Results Abnormal Lab Results 09/09/21 09/09/21 09/09/21 16:10 16:10 16:10 WBC 17.13 H RBC 4.88 Hgb 14.0 Hct 42.6 MCV 87.3 MCH 28.7 MCHC 32.9 RDW Std Deviation 51.8 H RDW Coeff of Jose 16.2 H Plt Count 353 MPV 10.2 Neutrophils % (Manual) 88.0 Lymphocytes % (Manual) 3.4 Monocytes % (Manual) 6.0 Metamyelocytes % (Man) 1.7 Myelocytes % (Man) 0.9 Neutrophils # (Manual) 15.07 H Total Absolute Neuts 15.07 H Lymphocytes # (Manual) 0.58 L Total Abs Lymphocytes 0.58 L Monocytes # (Manual) 1.03 H Metamyelocytes # (Man) 0.29 H Myelocytes # (Manual) 0.15 H RBC Morphology Unremarkable Peripher Smr Path Cons PT Cancelled INR Cancelled APTT Cancelled PTT Ratio Cancelled Sodium 139 Potassium 4.0 D Chloride 107 Carbon Dioxide 27 Anion Gap 5.0 BUN 23 H Creatinine 1.13 Est Cr Clr Drug Dosing 79.8 Est GFR ( Amer) 74.8 Est GFR (Non-Af Amer) 64.6 BUN/Creatinine Ratio 20.3 H Glucose 112 H Calcium 9.9 Magnesium 2.1 Total Bilirubin 0.5 AST 22 ALT 54 Alkaline Phosphatase 141 H Troponin I < 0.015 NT-Pro-B Natriuret Pep 2038 H Total Protein 7.6 Albumin 3.0 L Globulin 4.6 H Albumin/Globulin Ratio 0.7 L Procalcitonin Specimen Hemolysis Urine Color Urine Appearance Urine pH Ur Specific [place] Urine Protein Urine Glucose (UA) Urine Ketones Urine Blood Urine Nitrite Urine Bilirubin Urine Urobilinogen Ur Leukocyte Esterase Urine WBC (Auto) Urine RBC (Auto) U Hyaline Cast (Auto) U Epithel Cells (Auto) Urine Bacteria (Auto) Urine Yeast SARS-CoV-2 (PCR) Influenza Type A (PCR) Influenza Type B (PCR) RSV (RT-PCR) 09/09/21 09/09/21 09/09/21 17:50 18:32 18:32 WBC RBC Hgb Hct MCV MCH MCHC RDW Std Deviation RDW Coeff of Jose Plt Count MPV Neutrophils % (Manual) Lymphocytes % (Manual) Monocytes % (Manual) Metamyelocytes % (Man) Myelocytes % (Man) Neutrophils # (Manual) Total Absolute Neuts Lymphocytes # (Manual) Total Abs Lymphocytes Monocytes # (Manual) Metamyelocytes # (Man) Myelocytes # (Manual) RBC Morphology Peripher Smr Path Cons PT 10.9 INR 1.1 APTT 29.3 PTT Ratio 1.1 Sodium Potassium Chloride Carbon Dioxide Anion Gap BUN Creatinine Est Cr Clr Drug Dosing Est GFR ( Amer) Est GFR (Non-Af Amer) BUN/Creatinine Ratio Glucose Calcium Magnesium Total Bilirubin AST ALT Alkaline Phosphatase Troponin I NT-Pro-B Natriuret Pep Total Protein Albumin Globulin Albumin/Globulin Ratio Procalcitonin 0.23 Specimen Hemolysis Urine Color Urine Appearance Urine pH Ur Specific [place] Urine Protein Urine Glucose (UA) Urine Ketones Urine Blood Urine Nitrite Urine Bilirubin Urine Urobilinogen Ur Leukocyte Esterase Urine WBC (Auto) Urine RBC (Auto) U Hyaline Cast (Auto) U Epithel Cells (Auto) Urine Bacteria (Auto) Urine Yeast SARS-CoV-2 (PCR) NEGATIVE Influenza Type A (PCR) Negative Influenza Type B (PCR) Negative RSV (RT-PCR) Negative 09/09/21 20:44 WBC RBC Hgb Hct MCV MCH MCHC RDW Std Deviation RDW Coeff of Jose Plt Count MPV Neutrophils % (Manual) Lymphocytes % (Manual) Monocytes % (Manual) Metamyelocytes % (Man) Myelocytes % (Man) Neutrophils # (Manual) Total Absolute Neuts Lymphocytes # (Manual) Total Abs Lymphocytes Monocytes # (Manual) Metamyelocytes # (Man) Myelocytes # (Manual) RBC Morphology Peripher Smr Path Cons PT INR APTT PTT Ratio Sodium Potassium Chloride Carbon Dioxide Anion Gap BUN Creatinine Est Cr Clr Drug Dosing Est GFR ( Amer) Est GFR (Non-Af Amer) BUN/Creatinine Ratio Glucose Calcium Magnesium Total Bilirubin AST ALT Alkaline Phosphatase Troponin I NT-Pro-B Natriuret Pep Total Protein Albumin Globulin Albumin/Globulin Ratio Procalcitonin Specimen Hemolysis Urine Color Yellow Urine Appearance Cloudy A Urine pH 5.0 Ur Specific [place] 1.009 Urine Protein Trace H Urine Glucose (UA) Negative Urine Ketones Negative Urine Blood 3+ H Urine Nitrite Negative Urine Bilirubin Negative Urine Urobilinogen Negative Ur Leukocyte Esterase 2+ H Urine WBC (Auto) 10-30 H Urine RBC (Auto) >30 H U Hyaline Cast (Auto) 5-10 H U Epithel Cells (Auto) 0-5 Urine Bacteria (Auto) Negative Urine Yeast Not Reportable SARS-CoV-2 (PCR) Influenza Type A (PCR) Influenza Type B (PCR) RSV (RT-PCR) Diagnostic Findings chest x-ray obtained the time admission not reveal any acute cardiopulmonary process echocardiogram performed today revealed preserved LV systolic function. Moderate to severe aortic stenosis. Mild aortic and mitral regurgitation. Moderate mitral annular calcification. ECG Additional Comments: EKG obtained the time admission revealed normal sinus rhythm with frequent atrial ectopy PG Care Time/CCT Total # of Minutes Spent Total Time Spent with Patient: Total time spent is greater than 50% in coordination of care (as documented) at patient's floor/unit and/or counseling patient: Coding Level of Care Code 39447 Office/Outpt Visit, Est Diagnoses Afib I48.91 Dyspnea R06.00 Aortic stenosis I35.0 Cardiac valve disease etiology: etiology unspecified Valvular heart disease I38 (1) Aortic stenosis Cardiac valve disease etiology: etiology unspecified Qualified Code(s): I35.0 - Nonrheumatic aortic (valve) stenosis
--- NOTE | 2021-09-10 16:10 | Electrocardiogram Report ---
Test Reason : Blood Pressure : / mmHG Vent. Rate : 085 BPM Atrial Rate : 085 BPM P-R Int : 182 ms QRS Dur : 078 ms QT Int : 380 ms P-R-T Axes : 058 000 037 degrees QTc Int : 452 ms Sinus rhythm with occasional Premature ventricular complexes Premature atrial complexes Moderate voltage criteria for LVH, may be normal variant Possible Inferior infarct , age undetermined Abnormal ECG When compared with ECG of 02-SEP-2021 11:06, Sinus rhythm has replaced Atrial fibrillation Nonspecific T wave abnormality, improved in Lateral leads QT has lengthened Confirmed by Marco Bauer ([id number]) on 09/10/2021 4:09:56 PM Referred By: Diego Pan Confirmed By:Marco Bauer
[2021-09-10] MEDS: NITROGLYCERIN 2% OINTMENT 30GM TUBE EXT SCH ×2 (17:21→23:58)
--- NOTE | 2021-09-10 18:00 | Billing Data ---
Date of Service September 10, 2021 Coding Level of Care Code 17716 Subseq Hosp Care Lvl 2
[2021-09-10] MEDS: TAMSULOSIN HCL 0.4 MG CAP PO SCH (19:52)
[2021-09-10] MEDS: MELATONIN 3 MG TAB PO PRN (22:42)
[2021-09-11] MEDS: NITROGLYCERIN 2% OINTMENT 30GM TUBE EXT SCH ×2 (06:17→11:00)
[2021-09-11] MEDS: CIPROFLOXACIN 500 MG TAB PO SCH ×2 (06:17→21:07)
[2021-09-11] MEDS: ACETAMINOPHEN 325 MG TAB PO PRN ×4 (06:20→21:08)
[2021-09-11 07:42] LABS: Basophils # (auto) 0.05 K/uL (0-0.2); Basophils % (auto) 0.4 %; Eosinophils # (auto) 0.31 K/uL (0-0.5); Eosinophils % (auto) 2.6 %; Hematocrit (blood only) 38.6 % (42-52); Hemoglobin 12.4 g/dL (14.0-18.0); Immature Granulocytes # (auto) 0.42 K/uL (0.00-0.02); Immature Granulocytes % (auto) 3.6 %; Lymphocytes # (auto) 0.78 K/uL (1.2-3.4); Lymphocytes % (auto) 6.6 %; Mean Corpuscular Hemoglobin 28.1 pg (25-34); Mean Corpuscular Hgb Conc 32.1 g/dL (32-36); Mean Corpuscular Volume 87.3 fL (80-100); Mean Platelet Volume 9.9 fL (7.4-10.4); Monocytes # (auto) 1.17 K/uL (0.11-0.59); Monocytes % (auto) 9.9 %; Neutrophils # (auto) 9.07 K/uL (1.4-6.5); Neutrophils % (auto) 76.9 %; Platelet Count 398 K/uL (130-400); RDW Coefficient of Variation 16.2 % (11.5-14.5); RDW Standard Deviation 51.9 fL (36.4-46.3); Red Blood Count 4.42 M/uL (4.7-6.1)
--- NOTE | 2021-09-11 07:50 | Hospitalist Progress Note ---
Date of Service September 11, 2021 Assessment & Plan (1) Dyspnea: (2) Orthopnea: (3) Leukocytosis: (4) Hypertension: (5) Hyperlipidemia: (6) Afib: Plan: 70 yo M Hx obstructive nephrolithiasis, CARRI, moderate , HTN, HLD, recent admission for urosepsis and E. coli bacteremia admitted for observation dyspnea and orthopnea, with leukocytosis of unclear cause. Shortness of breath, orthopnea: - Presented with SOB worse with lying flat. No hypoxia and vitals stable, though tachypneic with lying flat. - BNP elevated, with minimal pulmonary congestion on CXR. No evidence of pneumonia. Procalcitonin negative. - COVID19 and Influenza negative - Low likelihood of PE given not hypoxic nor tachycardic, and has been on on Eliquis since last admission. - Repeat Echo with normal LV systolic function, moderate to severe aortic stenosis (see TTE report for further details) - Cardiology consult: - Likely most of his symptoms are related to pulmonary vascular congestion. However, there are some elements of his presentation which are not consistent with this diagnosis. - Consider pulmonary process/infection if no significant improvement with diuresis - If significant improvement, likely benefit from daily diuretic (chlorthalidone vs Lasix) -Hold IV Lasix as creatinine increased today encourage oral hydration - Monitor overnight for further improvement of breathing and monitoring of his renal function -Symptoms likely multifactorial he does have some symptoms consistent with fluid overload, but also reports a 1.5 pack/day smoking history for over 20 years (quit decades ago) and has never had PFTs -Recommend PFTs as an outpatient once back to baseline Elevated creatinine - Prerenal azotemia vs CHAPARRITA in the setting of IV diuresis with Lasix - Hold Lasix as above - Encourage PO hydration - Check AM BMP Valvular heart disease: - Echo with moderate to severe - Cardio consult: -Does have fairly severe aortic stenosis -Progressed slightly since his last echo in March -Do not believe this is likely responsible for his acute symptoms -We will have a better understanding of the nature of his valvular disease when he is back to his baseline and more ambulatory -Did report progressive dyspnea over the course of a year or so, accompanied by an element of exercise intolerance Leukocytosis - downtrending - Unclear etiology. Noted to have leukocytosis on lab work as far back as 03/2020. - Recently admitted for E. coli bacteremia / UTI with obstructive nephrolithiasis, now s/p stent by Urology which is still in place. - Discharged 09/07/21 on ciprofloxacin to complete 09/16 for complicated UTI. - UCx pending - Peripheral smear: Leukocytosis is primarily due to increased numbers of cytologically unremarkable PMN leukocytes consistent with a leukemoid reaction (see path report from 09/09 for further info) - Continue to monitor as patient still has ureteral stent in place and these may become infected AFib: - Patient in AFib however not in RVR. - Continue diltiazem for rate control, Eliquis for anticoagulation. HTN: - Continue diltiazem, chlorthalidone. - Defer medication adjustment to PCP. HLD: - Continue atorvastatin. CARRI: - CPAP qHS. - Reports consistent usage (about 98% per patient) of his CPAP at home -- only misses when on long trips Code Status: FULL CODE FEN: Low sodium diet DVT ppx: Eliquis Dispo: Med/Surg with Telemetry Admission and Anticipated Discharge Date Admission Date: September 09, 2021 Supervising Physician Co-Signing Physician Notes Patient seen and examined, chart reviewed, case discussed with Dr. Elisha Martinez and I agree with the assessment and plan as above except as otherwise noted General: A&Ox3. NAD. Cooperative. HEENT: Atraumatic, normocephalic. Pulm: CTAB A&P. -wheezes, -rales, -rhonchi. Symmetrical chest rise. No increase work of breathing. No respiratory distress. +Orthopnea Cardiac: RRR, +systolic murmur. Radial pulses intact and symmetrical. All labs and images reviewed Is a 70-year-old male who presents for management of shortness of breath/orthopnea. On admission had some associated leg swelling, although his chest x-ray was relatively unremarkable. Patient symptoms are gradually improving today, was able to sleep for 3 to 4 hours but still continues to have some orthopnea when laying flat with no symptoms standing up at rest. Reports good energy today. Has had an elevated creatinine,? Prerenal azotemia versus CHAPARRITA in the setting of diuresis, will hold additional Lasix Patient feels he is improving, but is not yet comfortable returning home especially with residual symptoms and increased creatinine Oral hydration, Lasix held, continue to follow. Leukocytosis is nearly resolved, vitals stable, afebrile and otherwise breathing well on room air Echo reviewed, mild worsening in his prior AMS. LV EF 55-60% with normal wall motion. Low suspicion for as cause of his symptoms, moderate to severe at this time Due to [id number] history patient would benefit from PFTs as outpatient, defer these at this time and patient is not wheezing/not consistent with COPD e xacerbation at this time Subjective No acute events overnight. Patient reports that he was able to sleep about 3 to 4 hours, which is much better than any of the preceding 4 days. He says he was able to lay almost flat on his left side but immediately felt short of breath if he laid on his back or right side. No shortness of breath when standing. He denies chest pain, palpitations, significant cough, fever, chills, nausea, vomiting. Review of Systems Review of Systems: Per subjective Physical Exam Physical Exam: GENERAL: A&Ox3. NAD. HEENT: PERRL, EOMI. Moist mucous membranes. NECK: No JVD. No lymphadenopathy. CHEST/LUNGS: CTAB A/P. No crackles, wheezes, rales, rhonchi. HEART: RRR. No m/g/r. ABDOMEN: NT/ND, soft. BS+ x4 EXTREMITIES: No cyanosis, no clubbing. BLE with 1+ pitting edema bilaterally. SKIN: Warm and dry. No rashes or lesions. PSYCHIATRIC: Euthymic affect, no SI, no pressured speech, no hallucinations NEUROLOGIC: No FND. CN II-XII grossly intact. Results & Data Results & Data ([facility]) Vital Signs (Past 12 Hours) Vital Signs Temp Pulse Pulse Resp BP Pulse Ox Pulse Ox 09/11/21 07:40 36.7 C 61 20 129/78 92 09/11/21 07:26 81 09/11/21 05:03 36.5 C 70 20 123/55 L 92 09/11/21 05:00 92 09/10/21 23:00 36.3 C L 77 20 144/84 H 93 09/10/21 22:18 85 Resident Activity Tracking Resident Involvement: Resident Care Provided Care Provided: Adult Hospital Medicine (1) Hypertension Hypertension type: essential hypertension Qualified Code(s): I10 - Essential (primary) hypertension (2) Hyperlipidemia Hyperlipidemia type: pure hypercholesterolemia Qualified Code(s): E78.00 - Pure hypercholesterolemia, unspecified; E78.0 - Pure hypercholesterolemia
[2021-09-11 08:00] LABS: BUN Creatinine Ratio 21.6 (10-20); Calcium 9.1 mg/dl (8.5-10.1); Est GFR (African American) 57.3 ml/min; Est GFR (Non-African American) 49.4 ml/min; Potassium 3.5 mmol/L (3.5-5.1)
[2021-09-11] MEDS: ATORVASTATIN 40 MG TAB PO SCH (08:44)
[2021-09-11] MEDS: APIXABAN 5 MG TABLET PO SCH ×2 (08:44→21:08)
[2021-09-11] MEDS: dilTIAZem HCL 240 MG CAPCR PO SCH (08:44)
--- NOTE | 2021-09-11 12:49 | Billing Data ---
Date of Service September 11, 2021 Coding Level of Care Code 46887 Subseq Hosp Care Lvl 2
[2021-09-11] MEDS: TAMSULOSIN HCL 0.4 MG CAP PO SCH (21:08)
[2021-09-12] MEDS: MELATONIN 3 MG TAB PO PRN (00:35)
[2021-09-12] MEDS: ACETAMINOPHEN 325 MG TAB PO PRN ×3 (01:37→12:55)
[2021-09-12] MEDS: CIPROFLOXACIN 500 MG TAB PO SCH (06:01)
[2021-09-12 07:04] LABS: Basophils # (auto) 0.05 K/uL (0-0.2); Basophils % (auto) 0.5 %; Eosinophils # (auto) 0.31 K/uL (0-0.5); Eosinophils % (auto) 3.2 %; Hematocrit (blood only) 37.6 % (42-52); Hemoglobin 11.9 g/dL (14.0-18.0); Immature Granulocytes # (auto) 0.17 K/uL (0.00-0.02); Immature Granulocytes % (auto) 1.8 %; Lymphocytes # (auto) 0.62 K/uL (1.2-3.4); Lymphocytes % (auto) 6.5 %; Mean Corpuscular Hemoglobin 27.7 pg (25-34); Mean Corpuscular Hgb Conc 31.6 g/dL (32-36); Mean Corpuscular Volume 87.6 fL (80-100); Mean Platelet Volume 9.7 fL (7.4-10.4); Monocytes # (auto) 1.21 K/uL (0.11-0.59); Monocytes % (auto) 12.7 %; Neutrophils # (auto) 7.19 K/uL (1.4-6.5); Neutrophils % (auto) 75.3 %; Platelet Count 400 K/uL (130-400); RDW Coefficient of Variation 16.1 % (11.5-14.5); RDW Standard Deviation 51.9 fL (36.4-46.3); Red Blood Count 4.29 M/uL (4.7-6.1); White Blood Count 9.55 K/uL (4.8-10.8)
--- NOTE | 2021-09-12 07:16 | Hospitalist Progress Note ---
Date of Service September 12, 2021 Assessment & Plan (1) Dyspnea: (2) Orthopnea: (3) Leukocytosis: (4) Hypertension: (5) Hyperlipidemia: (6) Afib: Plan: 70 yo M Hx obstructive nephrolithiasis, CARRI, moderate , HTN, HLD, recent admission for urosepsis and E. coli bacteremia admitted for observation dyspnea and orthopnea, with leukocytosis of unclear cause. Shortness of breath, orthopnea: - Presented with SOB worse with lying flat. No hypoxia and vitals stable, though tachypneic with lying flat. - BNP elevated, with minimal pulmonary congestion on CXR. No evidence of pneumonia. Procalcitonin negative. - COVID19 and Influenza negative - Low likelihood of PE given not hypoxic nor tachycardic, and has been on on Eliquis since last admission. - Repeat Echo with normal LV systolic function, moderate to severe aortic stenosis (see TTE report for further details) - Cardiology consult: - Likely most of his symptoms are related to pulmonary vascular congestion. However, there are some elements of his presentation which are not consistent with this diagnosis. - Consider pulmonary process/infection if no significant improvement with diuresis - If significant improvement, likely benefit from daily diuretic (chlorthalidone vs Lasix) -Hold IV Lasix as creatinine increased today encourage oral hydration - Monitor overnight for further improvement of breathing and monitoring of his renal function -Symptoms likely multifactorial he does have some symptoms consistent with fluid overload, but also reports a 1.5 pack/day smoking history for over 20 years (quit decades ago) and has never had PFTs -Recommend PFTs as an outpatient once back to baseline Elevated creatinine - Prerenal azotemia vs CHAPARRITA in the setting of IV diuresis with Lasix - Hold Lasix as above - Encourage PO hydration - Check AM BMP Valvular heart disease: - Echo with moderate to severe - Cardio consult: -Does have fairly severe aortic stenosis -Progressed slightly since his last echo in March -Do not believe this is likely responsible for his acute symptoms -We will have a better understanding of the nature of his valvular disease when he is back to his baseline and more ambulatory -Did report progressive dyspnea over the course of a year or so, accompanied by an element of exercise intolerance Leukocytosis - downtrending - Unclear etiology. Noted to have leukocytosis on lab work as far back as 03/2020. - Recently admitted for E. coli bacteremia / UTI with obstructive nephrolithiasis, now s/p stent by Urology which is still in place. - Discharged 09/07/21 on ciprofloxacin to complete 09/16 for complicated UTI. - UCx pending - Peripheral smear: Leukocytosis is primarily due to increased numbers of cytologically unremarkable PMN leukocytes consistent with a leukemoid reaction (see path report from 09/09 for further info) - Continue to monitor as patient still has ureteral stent in place and these may become infected AFib: - Patient in AFib however not in RVR. - Continue diltiazem for rate control, Eliquis for anticoagulation. HTN: - Continue diltiazem, chlorthalidone. - Defer medication adjustment to PCP. HLD: - Continue atorvastatin. CARRI: - CPAP qHS. - Reports consistent usage (about 98% per patient) of his CPAP at home -- only misses when on long trips Code Status: FULL CODE FEN: Low sodium diet DVT ppx: Eliquis Dispo: Med/Surg with Telemetry Admission and Anticipated Discharge Date Admission Date: September 09, 2021 Review of Systems Review of Systems: Per subjective Physical Exam Physical Exam: GENERAL: A&Ox3. NAD. HEENT: PERRL, EOMI. Moist mucous membranes. NECK: No JVD. No lymphadenopathy. CHEST/LUNGS: CTAB A/P. No crackles, wheezes, rales, rhonchi. HEART: RRR. No m/g/r. ABDOMEN: NT/ND, soft. BS+ x4 EXTREMITIES: No cyanosis, no clubbing. BLE with 1+ pitting edema bilaterally. SKIN: Warm and dry. No rashes or lesions. PSYCHIATRIC: Euthymic affect, no SI, no pressured speech, no hallucinations NEUROLOGIC: No FND. CN II-XII grossly intact. Results & Data Results & Data ([facility]) Vital Signs (Past 12 Hours) Vital Signs Temp Pulse Pulse Resp BP Pulse Ox 09/12/21 07:12 75 09/12/21 06:38 36.5 C 64 18 143/75 H 91 09/12/21 03:30 36.5 C 81 18 124/82 91 09/12/21 01:58 79 09/12/21 01:57 72 09/11/21 23:27 37 C 79 18 141/66 H 92 (1) Hypertension Hypertension type: essential hypertension Qualified Code(s): I10 - Essential (primary) hypertension (2) Hyperlipidemia Hyperlipidemia type: pure hypercholesterolemia Qualified Code(s): E78.00 - Pure hypercholesterolemia, unspecified; E78.0 - Pure hypercholesterolemia
[2021-09-12 07:23] LABS: BUN Creatinine Ratio 23.3 (10-20); C Reactive Protein 1.08 mg/dl (0-0.29); Creatinine Clr Calc Pharmacy 75.1 ml/min; Est GFR (African American) 69.6 ml/min; Est GFR (Non-African American) 60.1 ml/min; Potassium 3.4 mmol/L (3.5-5.1)
[2021-09-12] MEDS: dilTIAZem HCL 240 MG CAPCR PO SCH (07:48)
[2021-09-12] MEDS: APIXABAN 5 MG TABLET PO SCH (07:49)
[2021-09-12] MEDS: ATORVASTATIN 40 MG TAB PO SCH (07:49)
--- NOTE | 2021-09-12 12:32 | Discharge Summary ---
Date of Service September 12, 2021 Admission HPI Per Admitting Provider 70 yo M Hx nephrolithiasis, CARRI, moderate , HTN, HLD, recent admission for obstructive nephrolithiasis and E. coli bacteremia presented to the ER today after seeing his PCP for complaints of SOB and orthopnea. Patient denies fevers, chills, chest pain or palpitations, abdominal pain, diarrhea, dysuria, hematuria, urinary urgency/frequency, back pain, nausea. CXR with pulmonary congestion without pleural effusion, pneumonia. WBC count elevated to 17.13 (had been elevated during last admission). BNP elevated to 2000 (elevated to such on last admission). In the ER patient received Lasix 40mg IV x1 for suspicion of fluid overload (orthopnea, worsening LE edema). Hospitalist service was consulted for observation. Principal Diagnosis Orthopnea Discharge Exam GENERAL: A&Ox3. NAD. HEENT: PERRL, EOMI. Moist mucous membranes. NECK: No JVD. No lymphadenopathy. CHEST/LUNGS: CTAB A/P. No crackles, wheezes, rales, rhonchi. HEART: RRR. No m/g/r. ABDOMEN: NT/ND, soft. BS+ x4 EXTREMITIES: No cyanosis, no clubbing, no edema SKIN: Warm and dry. No rashes or lesions. PSYCHIATRIC: Euthymic affect, no SI, no pressured speech, no hallucinations NEUROLOGIC: No FND. CN II-XII grossly intact. Discharge Data Allergies Allergy/AdvReac Type Severity Reaction Status Date / Time No Known Allergies Allergy Unknown Verified 09/09/21 14:41 Consultations 09/09/21 17:22 ED Decision to Admit Stat 09/09/21 22:19 Consult Cardiology Routine Hospital Course (1) Dyspnea: (2) Orthopnea: (3) Leukocytosis: (4) Hypertension: (5) Hyperlipidemia: (6) Afib: 70 yo M Hx obstructive nephrolithiasis, CARRI, moderate , HTN, HLD, recent admission for urosepsis and E. coli bacteremia admitted for observation dyspnea and orthopnea, with leukocytosis of unclear cause. Shortness of breath, orthopnea: - Presented with SOB worse with lying flat. No hypoxia and vitals stable, though tachypneic with lying flat. - BNP elevated, with minimal pulmonary congestion on CXR. No evidence of pneumonia. Procalcitonin negative. - COVID19 and Influenza negative - Low likelihood of PE given not hypoxic nor tachycardic, and has been on on Eliquis since last admission. - Repeat Echo with normal LV systolic function, moderate to severe aortic stenosis (see TTE report for further details) - Cardiology consult: - Likely most of his symptoms are related to pulmonary vascular congestion. However, there are some elements of his presentation which are not consistent with this diagnosis. - Consider pulmonary process/infection if no significant improvement with diuresis - If significant improvement, likely benefit from daily diuretic (chlorthalidone vs Lasix) -Symptoms likely multifactorial he did have some symptoms consistent with fluid overload, but also reports a 1.5 pack/day smoking history for over 20 years (quit decades ago) and has never had PFTs - Also reported steady worsening of shortness of breath for about a year -- does have moderate to severe aortic stenosis, which might contribute, and as above may have component of chronic lung disease -Will DC with Lasix 20mg PO daily in place of chlorthalidone for now -- recommend PCP follow up to ensure symptoms resolve or stabilize - Can consider adding inhaler if symptoms more consistent with COPD but at this time do not seem that way -Recommend PFTs as an outpatient once back to baseline Elevated creatinine - resolved - Prerenal azotemia vs CHAPARRITA in the setting of IV diuresis with Lasix - Trended back to normal -- will continue Lasix orally as above Valvular heart disease: - Echo with moderate to severe - Cardio consult: -Does have fairly severe aortic stenosis -Progressed slightly since his last echo in March -Do not believe this is likely responsible for his acute symptoms -We will have a better understanding of the nature of his valvular disease when he is back to his baseline and more ambulatory -Did report progressive dyspnea over the course of a year or so, accompanied by an element of exercise intolerance Leukocytosis - resolved - Likely related to urinary infection per previous admission on ciprofloxacin orally to fully treat this, recommend continuing until course completion (5 add itional days after this discharge) - UCx negative on this admission - Peripheral smear: Leukocytosis is primarily due to increased numbers of cytologically unremarkable PMN leukocytes consistent with a leukemoid reaction (see path report from 09/09 for further info) AFib: - Patient in AFib however not in RVR. - Continue diltiazem for rate control, Eliquis for anticoagulation. HTN: - Continue diltiazem, chlorthalidone. - Defer medication adjustment to PCP. HLD: - Continue atorvastatin. CARRI: - CPAP qHS. - Reports consistent usage (about 98% per patient) of his CPAP at home -- only misses when on long trips Dispo: Home, self-care, close follow-up with urology and PCP Total Time Total Time Spent Total Time Spent (In Minutes): See attending attestation Discharge Plan Discharge Items Patient Disposition: Home - Self-Care Reason For Visit: DYSPNEA, ORTHOPNEA, LEUKOCYTOSIS Discharge Diagnosis: Orthopnea, fluid overload Activity: Per Instructions section Non-emergency contact: Primary Care Provider and Urologist Call non-emergency contact if: you have any medication questions and your symptoms worsen Follow-up/Referrals: Diego Pan MD [Primary Care Provider] - 09/21/21 3:15 pm Diet: Heart Healthy Addtl Attending Provider Instructions: You were admitted to [facility] due to shortness of breath, especially when laying flat. Additionally, you had a persistent white blood cell elevation, which was concerning for possible worsening infection. You were evaluated for your shortness of breath with an echocardiogram, which showed normal heart function and moderate to severe aortic stenosis. Cardiology evaluated you as well, and considered that your shortness of breath was more likely to a mild fluid overload and not likely related to your aortic stenosis. As such, you were treated with IV Lasix initially. Your symptoms improved with this. The treatment was continued until your creatinine increased slightly, pointing to likely having removed as much fluid as we could. You were watched overnight to ensure resolution of your mildly elevated creatinine, which did trend back down to normal. As discussed, we believe that your shortness of breath may be multifactorial and may require outpatient evaluation. We recommend that you follow with your primary care provider for discussion of this and possible referral for pulmonary function tests. You will be sent home with Lasix 20mg orally daily for continued gentle diuresis. Please take this instead of your chlorthalidone for now. As above, follow up with you PCP for discussion of this and whether you will continue on this going forward. Your white blood cell count trended down to normal on your day of discharge. It is likely that the persistent white count was related to your initial urinary infection and has now normalized as you continue your oral antibiotic regimen. Please continue to take this as prescribed until you have completed the full treatment course. Please keep any scheduled follow-up appointments with urology for discussion of your stent and likely removal of this. Additionally, we recommend that you follow with your PCP to ensure full resolution of symptoms. If you were to have any severe symptoms including, but not limited to, chest pain, worsening shortness of breath, fever, chills, nausea, vomiting, or any other symptoms that may be of acute concern to you please return to the ED for further evaluation. Thank you for allowing us to participate in your care. Pending Studies at Discharge: No Stand-Alone Forms: My [facility], Smoking Cessation Medications and DC Order Prescriptions: New furosemide [Lasix] 20 mg tablet 20 mg PO DAILY 14 Days Qty: 14 RF: 0 furosemide [Lasix] 20 mg tablet 20 mg PO DAILY Qty: 90 RF: 0 Continued tamsulosin [Flomax] 0.4 mg capsule 0.4 mg PO HS Qty: 90 RF: 3 atorvastatin 40 mg tablet 40 mg PO DAILY Qty: 90 RF: 3 Centrum Silver 0.4-300-250 mg-mcg-mcg tablet 1 tab PO QAM RF: 0 [id number] serr [Osteo Bi-Flex (5-Loxin)] 1,500-400-100 mg-unit-mg tablet 1 tab PO QAM RF: 0 omega-3 acid ethyl esters 1 gram capsule 1 cap PO QAM RF: 0 aspirin 81 mg Tablet,Chewable 81 mg PO QAM RF: 0 acetaminophen [Tylenol Extra Strength] 500 mg Tablet 1,000 mg PO Q6H PRN (Reason: FEVER/PAIN) RF: 0 ibuprofen 200 mg Tablet 400 mg PO Q6H PRN (Reason: FEVER/PAIN) RF: 0 Eliquis 5 mg tablet 5 mg PO BID 90 Days Qty: 180 RF: 0 diltiazem HCl 240 mg capsule,extended release 24hr 240 mg PO DAILY 90 Days Qty: 90 RF: 0 ciprofloxacin HCl 500 mg tablet 500 mg PO Q12H Qty: 18 RF: 0 Discontinued chlorthalidone 25 mg tablet 25 mg PO QAM Qty: 90 RF: 3 Discharge Orders: Discharge Order (Routine); Ordered 09/12/21 Ordered By: Jose L Mendez Admission Data Admit Date/Time: 09/09/21 18:23 Attending Provider: Armani Torre Admit Provider: Tatyana Navarro Primary Care Provider: Diego Pan Other Providers: Kenneth Lou ; Jm Be Resident Activity Tracking Resident Involvement: Resident Care Provided Care Provided: Adult [facility] Medicine
== END 2021-09-12 14:07 | disposition home or self-care (01) ==
LOC: ED 15:45 → EDINP 15:45 → SUATTDRO 18:23 → EDINP 21:12 → 2N 09-10 19:18

== ENCOUNTER 2024-03-18 11:19 | Inpatient (IN) ==
--- NOTE | 2024-03-18 11:41 | ED Triage Note ---
Date of Service March 18, 2024 Provider in Triage Author: Ludmila Ortiz History of Present Illness This patient was briefly evaluated while in triage. An abbreviated physical exam was performed. This patient is a 73-year-old Male who presents to the ED for evaluation of "what appears to be cellulitis from my navel down through my groin for a month." Pt. also reports elevated WBC 19,000. Pt. currently working with PCP and dermatology. Is on Cefdinir and Amoxicillin. States he got a shot in his butt on Monday. Does have history of Sepsis. Referred by Dr. Leavitt due to symptoms not improving. Rash and pain are worse, decreased energy. Tmax 99F. Pt. using lidocaine jelly with some improvement. Had TAVR through right groin 2 months ago, prior to onset of cellulitis at same site. Physical Exam VITALS: Vitals are noted on the nurse's note and reviewed by myself. GENERAL: This is a 73 year old male, in no acute distress, nondiaphoretic, well- developed well-nourished. SKIN: No obvious rashes, edema, erythema HEAD: Normocephalic atraumatic. EYES: Conjunctivae without injection, sclerae without icterus. NECK: No JVD. LUNGS: No retractions or accessory muscle use. MUSCULOSKELETAL: Normal gait. NEURO: Patient was alert and oriented to person place and time. No focal neurological deficits. Initial orders for labs and / or imaging were placed and patient was placed in the waiting area until a bed is available. Please see further documentation for the full ED course.
--- NOTE | 2024-03-18 12:20 | XRay Report ---
XR chest 1V not portable CLINICAL HISTORY: infection TECHNIQUE: Single frontal radiograph of the chest was obtained. Comparison: Comparison is made to chest radiograph 09/27/2023 FINDINGS: Exam is limited by underpenetration. Cardiomegaly is noted. The aortic arch is calcified. The lungs a re clear. No evidence of pleural effusion or pneumothorax. IMPRESSION: No acute abnormalities and in particular no radiographic evidence of pneumonia. ACT 112: Negative or not required by law. Electronically signed by: Doc Connors M.D. 03/18/2024 12:18 PM
[2024-03-18] MEDS: SODIUM CHLORIDE 0.9% 1,000 ML IV ONE (12:23)
[2024-03-18 12:29] LABS: Basophils # (auto) 0.07 K/uL (0.00-0.20); Basophils % (auto) 0.4 %; Eosinophils # (auto) 0.15 K/uL (0.00-0.50); Eosinophils % (auto) 0.9 %; Hematocrit (blood only) 45.7 % (42.0-52.0); Hemoglobin 15.1 g/dl (14.0-18.0); Immature Granulocytes # (auto) 0.45 K/uL (0.01-0.20); Immature Granulocytes % (auto) 2.7 %; Lymphocytes # (auto) 0.36 K/uL (1.20-3.40); Lymphocytes % (auto) 2.2 %; Mean Corpuscular Hemoglobin 30.3 pg (25.0-34.0); Mean Corpuscular Volume 91.8 fL (80.0-100.0); Mean Platelet Volume 10.4 fL (9.4-12.4); Monocytes # (auto) 1.53 K/uL (0.11-0.59); Monocytes % (auto) 9.1 %; Neutrophils # (auto) 14.18 K/uL (1.40-6.50); Neutrophils % (auto) 84.7 %; Platelet Count 228 K/uL (130-400); RDW Coefficient of Variation 13.9 % (11.5-14.5); RDW Standard Deviation 46.5 fL (36.4-46.3); Red Blood Count 4.98 M/uL (4.70-6.10); White Blood Count 16.74 K/ul (4.8-10.8)
[2024-03-18] MEDS ORDERED: VANCOMYCIN CONSULT ACTIVE PRN (12:52)
[2024-03-18 12:58] LABS: Albumin Level 3.9 gm/dl (3.4-5.0); Bilirubin,Total 0.5 mg/dl (0.2-1.0); Calcium 11.1 mg/dl (8.6-10.3); Potassium 3.1 mmol/L (3.5-5.1)
[2024-03-18 13:05] LABS: Albumin Globulin Ratio 1.1 (0.9-2); BUN Creatinine Ratio 29.1 (10-20); Creatinine Clr Calc Pharmacy 52.6 ml/min; Est GFR (African American) 48.9 ml/min; Est GFR (Non-African American) 42.2 ml/min; Globulin 3.7 gm/dl (2.5-4.0); Total Protein 7.6 gm/dl (6.0-8.3)
[2024-03-18 13:06] LABS: iSTAT Creatinine 1.9 mg/dl (0.6-1.3); iSTAT Ionized Calcium 1.27 mmol/l (1.12-1.32); iSTAT Potassium 3.3 mmol/L (3.3-5.0)
--- NOTE | 2024-03-18 13:09 | Electrocardiogram Report ---
Test Reason : Blood Pressure : / mmHG Vent. Rate : 100 BPM Atrial Rate : 000 BPM P-R Int : 000 ms QRS Dur : 094 ms QT Int : 328 ms P-R-T Axes : 000 015 166 degrees QTc Int : 423 ms Atrial fibrillation with premature ventricular or aberrantly conducted complexes Nonspecific ST and T wave abnormality Abnormal ECG When compared with ECG of 19-SEP-2022 08:13, Atrial fibrillation has replaced Sinus rhythm Nonspecific T wave abnormality now evident in Inferior leads Inverted T waves have replaced nonspecific T wave abnormality in Lateral leads Confirmed by Marco Bauer ([id number]) on 03/18/2024 1:09:40 PM Referred By: REFERRED SELF Confirmed By:Marco Bauer
[2024-03-18 13:28] LABS: C Reactive Protein 25.76 mg/dl (0-0.5)
--- NOTE | 2024-03-18 13:32 | Emergency Department Note ---
Impression & Plan Cellulitis, Scrotal swelling, Wound of groin, Hydrocele, left ED Provider Note NAME: RIZWAN TAPIA AGE: 73 SEX: M : 1950 ARRIVES VIA: Walk-In INFORMANT: Patient, ED PROVIDER(S): Janice Birmingham MD CHIEF COMPLAINT: Redness to groin HPI: This is a 73-year-old male presented for redness to groin. Patient was seen by dermatology 1 week ago, told it may be bacterial. Patient got cultures of this, and 6 days later was told is polymicrobial. Patient started on cefdinir over the weekend by his PCP was told if is not improving by Monday to come to the ER. Patient's groin is painful and red as per self-report. He notes he is applying copious lidocaine gel to the area due to pain. He notes no fevers or chills. No nausea vomiting or diarrhea. Does not associating pain at this time. No history of diabetes. Never had this happen before. History of hydrocele previously as well. ROS: See above HPI for pertinent positives & negatives. A total of 10 systems reviewed and were otherwise negative. PHYSICAL EXAMINATION: General: resting comfortably in no acute distress Head: Normocephalic and atraumatic Eyes: Normal inspection, extraocular muscles intact Ear, nose, throat: Normal external exam Neck: Normal range of motion Respiratory: lungs clear to auscultation bilaterally Cardiovascular: Regular rate/rhythm, no murmur GI: soft, nontender, no guarding or rebound Extremities: nontender, moves all extremities Neuro: The patient awake and alert, appropriately conversive, no focal deficits, symmetric faces Skin: Excoriated, red rash with yellow oozing under abdominal pannus, including scrotum and bilateral thighs MEDICAL DECISION MAKING: This is a 73-year-old male presenting for redness to groin. Concern for Carol's however there is no gas felt on exam. Patient lactic is slightly elevated and slightly above 2. He is not tachycardic, hypotensive however. Low concern for acute sepsis at this time. -Chest Xray independently interpreted by me showing no pneumothorax, focal opacity, or pleural effusions. -Otherwise labs reviewed showing a leukocytosis 16.74. -Due to patient's excoriated, possibly cellulitic/Carol's we will start empiric antibiotics with Zosyn and vancomycin. -Blood work is reviewed showing hypokalemia to 3.1, hypochloremia. No creatinine elevation to 1.58. -Lactic acid downtrending to 1.4. Procalcitonin and CRP elevated. -Patient CT imaging does not reveal signs of gas, does show fat stranding. Scrotum is not fully visualized. Will proceed to ultrasound. -Care discussed with WILMA Conrad for urology. She evaluated the patient and had Dr. Torres come to bedside for evaluation as well. -Scrotum ultrasound reveals hydrocele -Patient be admitted to hospital service, under Dr. Arriaga. Differential diagnosis: Carol's gangrene, cellulitis, allergic reaction to lidocaine, scrotal abscess ER treatment provided: See below Diagnostics interpreted by me: ECG: ECG independently interpreted by me with atrial fibrillation, rate of 100, normal QRS, normal QTc, no ST segment elevations consistent with STEMI criteria Cardiac Monitoring: An order was placed for continuous cardiac monitoring. The monitor shows a rate of 91 with sinus rhythm Laboratory studies: As stated above and show below. Imaging studies: See below. Critical Care Note: I have personally spent 40 minutes of critical care time in the direct management of this patient. This includes bedside care, interpretation of diagnostic studies, and testing, discussion with consultants, patient, and family members, and other required patient management activities. This 40 minutes is in excess of all separately billable procedures. Past Med/Surg History Problem List (Updated 03/18/24 @ 19:31 by Janice Birmingham MD) Wound of groin (Acute) Cellulitis (Acute) Scrotal swelling (Acute) Hip arthritis Lymphopenia Bilateral nephrolithiasis Elevated lipoprotein(a) Umbilical hernia Diaphragmatic paralysis Encounter for pre-operative examination Congestive heart failure (Acute) EF 40-44% COPD (chronic obstructive pulmonary disease) controlled, stable per pt Tubular adenoma of colon Irregular sleep-wake rhythm, nonorganic origin orthopnea Carotid bruit Benign localized prostatic hyperplasia with lower urinary tract symptoms (LUTS) BMI 40.0-44.9, adult Testicular swelling, left Hydrocele, left (Acute) Moderate left ventricular hypertrophy CARRI (obstructive sleep apnea) Acute left lumbar radiculopathy Arthritis of knee, left Hip pain, left Idiopathic polyneuropathy mild per pt, feet bilat Left knee DJD History of colon polyps Pre-diabetes Facet arthritis of lumbar region Urinary symptom or sign Hematuria Atrial fibrillation with rapid ventricular response (Acute) Leukocytosis Orthopnea Dyspnea Afib Paroxysmal atrial fibrillation Coronary artery calcification seen on CT scan Orthopnea Hemidiaphragm paralysis Exertional shortness of breath Obesity Steatosis, liver Dysphagia Early satiety Squamous cell carcinoma in situ (SCCIS) Left ureteral stone Diaphragm dysfunction Weight loss Non-occlusive coronary artery disease Encounter for pre-operative examination Anemia (HFpEF) heart failure with preserved ejection fraction Muscle weakness Restrictive lung disease Metabolic alkalosis Kidney stone on left side Umbilical hernia Umbilical hernia (Acute) 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 Rosa Complex renal cyst Per ultrasound, annual surveillance being done Medical History Pulmonary hypertension mild per 05/2023 echo: PASP 46 mmHg Iron deficiency anemia last infusion several months ago Cor pulmonale follows with [facility] pulm and [facility] cardio CAD (coronary artery disease) non-occlusive per [facility] EMR Mitral regurgitation Echo 05/2023: Severe MR Diaphragm paralysis Follows with [facility], diagnosed with paralyzed diaphragm, pt states he uses a BIPAP at night History of COVID-19 11/2021- was asymptomatic Chronic anemia Orthopnea unable to lay flat per [facility] pulm-per pt can do so with BiPAP-required semi-recumbent position for previous hernia repair Atrial fibrillation Carotid artery stenosis <50% stenosis to bilateral ICAs per 2017 carotid doppler BPH (benign prostatic hyperplasia) Apnea, sleep BIPAP Surgical History H/O umbilical hernia repair Open Repair Incarcerated Umbilical Hernia (09/19/22): MAC at [facility]-required semi-recumbent position per records S/P cystoscopy with ureteral stent placement 12/2021 Hx of cardiac cath 11/04/21 ([facility]) > mild, non-obstructive CAD. Moderate aortic stenosis based on invasive AV assessment (calculated KATHRYN 1.5cm2, MG 35mmhg)--Patient reports this was done while he was awake d/t respiratory concerns. 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 Other No family history of adverse response to anesthesia Denies family history of Ovarian cancer Prostate cancer Myocardial infarction Lung cancer Colorectal cancer Social History Smoking Status: Never smoker Tobacco Type: Cigarettes Age Started Using Tobacco: 14; Age Quit Using Tobacco: 38; packs per day: 1.5; Second Hand Exposure: No; Do You Dip or Chew Tobacco: No; Hx Alcohol Use: Yes Alcohol type: beer, wine and hard liquor Alcohol type Comment: 1-2 drinks weekly, "if that" Preferred Language: Vietnamese Communication Ability: Effective Visual Impairment: No Limitations Hearing Ability: Normal Client Experience Administrator Required: No Beliefs That Will Affect Care: None marital status: Life Partner Current Living Situation: Significant Other current occupational status: retired How many Children do You have: 1 Feels Safe at Home: Yes Childhood Exposure to Second-Hand Smoke: Yes Diet: regular caffeine: Yes (1 cup of coffee daily ) Dental Care, Regularly: Yes Physical Activity Frequency: 3-4 Times per Week Physical Activity Frequency Comment: walks Seatbelt Use: always Sunscreen Use: No Assistive Devices: BiPap and Glasses Allergies Allergies Allergy/AdvReac Type Severity Reaction Status Date / Time No Known Allergies Allergy Unknown Verified 09/19/23 14:54 Home Meds Home Medications Medication Instructions Recorded Confirmed glucosamine [id number] 1 tab PO QAM 02/19/19 11/29/23 ellis 1,500 mg-400 unit-100 mg tablet (Osteo Bi-Flex (5-Loxin)) oeddygbm-yhv-sotjo acid 0.4 1 tab PO QAM 02/19/19 11/29/23 mg-lycopene 300 mcg-lutein 250 mcg tablet (Centrum Silver) ibuprofen 200 mg tablet 400 mg PO Q6H PRN FEVER/PAIN 08/31/21 11/29/23 Mitoq 1 tab PO QAM 11/30/21 11/29/23 omega 8-eai-boy-fish oil 60 mg-90 1 cap PO QAM 02/24/22 11/29/23 mg-500 mg capsule (Fish Oil) potassium chloride 20 mEq 10 meq PO QAM 09/14/22 11/29/23 tablet,extended release ascorbic acid (vitamin C) 250 mg 250 mg PO QAM 09/15/22 11/29/23 tablet (Vitamin C) torsemide 20 mg tablet 40 mg PO QAM 09/15/22 11/29/23 cyanocobalamin (vitamin B-12) 5,000 mcg PO QAM 10/04/22 11/29/23 1,000 mcg tablet (Vitamin B-12) duloxetine 60 mg capsule,delayed 60 mg PO QPM 05/29/23 11/29/23 release (Cymbalta) atorvastatin 40 mg tablet 40 mg PO QPM 09/19/23 11/29/23 ferrous sulfate 325 mg (65 mg 325 mg PO QAM 09/19/23 11/29/23 iron) tablet (iron) metoprolol succinate 25 mg 25 mg PO DAILY 11/29/23 11/29/23 tablet,extended release 24 hr spironolactone 25 mg tablet 25 mg PO DAILY 11/29/23 11/29/23 Previous Rx's Medication Instructions Recorded apixaban 5 mg tablet (Eliquis) 5 mg PO BID 90 days #180 tabs 10/04/22 tamsulosin 0.4 mg capsule 0.4 mg PO HS #90 caps 12/19/22 betamethasone dipropionate 0.05 % 1 applic topical DAILY PRN skin 12/20/22 topical cream irritation #45 grams efinaconazole 10 % topical 1 applic topical DAILY 48 weeks #8 12/27/22 solution with applicator (Jublia) mL peg 3350-sod sulf,ukuwg-byk-wgf See Rx Instructions PO .COMPLEX #2 09/26/23 178.7-7.3-0.5-1.12-0.9 gram oral mL soln (Suflave) Results & Data (ED) Vital Signs Vital Signs - 24 hr 03/18/24 11:36 03/18/24 12:44 03/18/24 13:06 Temperature 36.6 C Temperature Source Oral Pulse Rate 95 H 87 86 Pulse Rate [Apical] Pulse Rate from SpO2 Sensor Pulse Rhythm [Apical] Pulse Strength [Apical] Respiratory Rate 18 18 Respiratory Effort / Characteristics Non-Labored Respiratory Depth Normal Respiratory Pattern Regular Blood Pressure 140/80 Blood Pressure [Left Arm] Blood Pressure Mean 100 Blood Pressure Mean [Left Arm] Blood Pressure Position [Left Arm] Pulse Oximetry 93 Oxygen Delivery Method Room Air Sepsis Recent Fever Within 48 Hours No Sepsis New/Unexplained Change in Mental Status N/A Sepsis Action Taken by Nursing No Action Required 03/18/24 13:33 03/18/24 14:09 03/18/24 14:12 Temperature Temperature Source Pulse Rate 95 H 77 Pulse Rate [Apical] Pulse Rate from SpO2 Sensor Pulse Rhythm [Apical] Pulse Strength [Apical] Respiratory Rate 27 H 28 H Respiratory Effort / Characteristics Respiratory Depth Respiratory Pattern Blood Pressure 149/78 H Blood Pressure [Left Arm] Blood Pressure Mean 100 Blood Pressure Mean [Left Arm] Blood Pressure Position [Left Arm] Pulse Oximetry Oxygen Delivery Method Sepsis Recent Fever Within 48 Hours Sepsis New/Unexplained Change in Mental Status Sepsis Action Taken by Nursing 03/18/24 14:12 03/18/24 14:38 03/18/24 14:39 Temperature Temperature Source Pulse Rate 81 Pulse Rate [Apical] Pulse Rate from SpO2 Sensor 84 Pulse Rhythm [Apical] Pulse Strength [Apical] Respiratory Rate 23 Respiratory Effort / Characteristics Respiratory Depth Respiratory Pattern Blood Pressure 149/78 H 180/105 H Blood Pressure [Left Arm] Blood Pressure Mean 100 147 Blood Pressure Mean [Left Arm] Blood Pressure Position [Left Arm] Pulse Oximetry 97 Oxygen Delivery Method Sepsis Recent Fever Within 48 Hours Sepsis New/Unexplained Change in Mental Status Sepsis Action Taken by Nursing 03/18/24 14:39 03/18/24 15:02 03/18/24 15:29 Temperature Temperature Source Pulse Rate 94 H Pulse Rate [Apical] Pulse Rate from SpO2 Sensor 92 H 94 H Pulse Rhythm [Apical] Pulse Strength [Apical] Respiratory Rate 28 H Respiratory Effort / Characteristics Respiratory Depth Respiratory Pattern Blood Pressure 180/105 H Blood Pressure [Left Arm] Blood Pressure Mean 147 Blood Pressure Mean [Left Arm] Blood Pressure Position [Left Arm] Pulse Oximetry 93 Oxygen Delivery Method Sepsis Recent Fever Within 48 Hours Sepsis New/Unexplained Change in Mental Status Sepsis Action Taken by Nursing 03/18/24 15:30 03/18/24 15:30 03/18/24 15:30 Temperature Temperature Source Pulse Rate Pulse Rate [Apical] Pulse Rate from SpO2 Sensor Pulse Rhythm [Apical] Pulse Strength [Apical] Respiratory Rate Respiratory Effort / Characteristics Respiratory Depth Respiratory Pattern Blood Pressure 155/95 H 155/95 H 155/95 H Blood Pressure [Left Arm] Blood Pressure Mean 105 105 105 Blood Pressure Mean [Left Arm] Blood Pressure Position [Left Arm] Pulse Oximetry Oxygen Delivery Method Sepsis Recent Fever Within 48 Hours Sepsis New/Unexplained Change in Mental Status Sepsis Action Taken by Nursing 03/18/24 15:32 03/18/24 16:08 03/18/24 16:53 Temperature Temperature Source Pulse Rate 90 99 H 91 H Pulse Rate [Apical] Pulse Rate from SpO2 Sensor 93 H 96 H Pulse Rhythm [Apical] Pulse Strength [Apical] Respiratory Rate 29 H 30 H 21 Respiratory Effort / Characteristics Respiratory Depth Respiratory Pattern Blood Pressure Blood Pressure [Left Arm] Blood Pressure Mean Blood Pressure Mean [Left Arm] Blood Pressure Position [Left Arm] Pulse Oximetry 94 91 93 Oxygen Delivery Method Room Air Sepsis Recent Fever Within 48 Hours Sepsis New/Unexplained Change in Mental Status Sepsis Action Taken by Nursing 03/18/24 16:53 03/18/24 16:53 03/18/24 16:57 Temperature Temperature Source Pulse Rate 89 Pulse Rate [Apical] Pulse Rate from SpO2 Sensor 92 H Pulse Rhythm [Apical] Pulse Strength [Apical] Respiratory Rate 25 H Respiratory Effort / Characteristics Respiratory Depth Respiratory Pattern Blood Pressure 141/77 H 141/77 H Blood Pressure [Left Arm] Blood Pressure Mean 93 93 Blood Pressure Mean [Left Arm] Blood Pressure Position [Left Arm] Pulse Oximetry 91 Oxygen Delivery Method Sepsis Recent Fever Within 48 Hours Sepsis New/Unexplained Change in Mental Status Sepsis Action Taken by Nursing 03/18/24 17:00 03/18/24 17:00 03/18/24 17:36 Temperature Temperature Source Pulse Rate 92 H 97 H Pulse Rate [Apical] Pulse Rate from SpO2 Sensor 92 H 95 H Pulse Rhythm [Apical] Pulse Strength [Apical] Respiratory Rate 28 H 22 Respiratory Effort / Characteristics Respiratory Depth Respiratory Pattern Blood Pressure 140/92 Blood Pressure [Left Arm] Blood Pressure Mean 101 Blood Pressure Mean [Left Arm] Blood Pressure Position [Left Arm] Pulse Oximetry 90 93 Oxygen Delivery Method Sepsis Recent Fever Within 48 Hours Sepsis New/Unexplained Change in Mental Status Sepsis Action Taken by Nursing 03/18/24 17:54 03/18/24 18:00 03/18/24 18:03 Temperature Temperature Source Pulse Rate 94 H 99 H Pulse Rate [Apical] Pulse Rate from SpO2 Sensor 94 H 100 H Pulse Rhythm [Apical] Pulse Strength [Apical] Respiratory Rate 19 23 Respiratory Effort / Characteristics Respiratory Depth Respiratory Pattern Blood Pressure 144/90 H Blood Pressure [Left Arm] Blood Pressure Mean 112 Blood Pressure Mean [Left Arm] Blood Pressure Position [Left Arm] Pulse Oximetry 93 94 Oxygen Delivery Method Sepsis Recent Fever Within 48 Hours Sepsis New/Unexplained Change in Mental Status Sepsis Action Taken by Nursing 03/18/24 18:28 Temperature 36.7 C Temperature Source Oral Pulse Rate Pulse Rate [Apical] 93 H Pulse Rate from SpO2 Sensor Pulse Rhythm [Apical] Regular Pulse Strength [Apical] Normal Respiratory Rate 22 Respiratory Effort / Characteristics Respiratory Depth Normal Respiratory Pattern Blood Pressure Blood Pressure [Left Arm] 141/100 H Blood Pressure Mean Blood Pressure Mean [Left Arm] 113 Blood Pressure Position [Left Arm] Sitting Pulse Oximetry 94 Oxygen Delivery Method Room Air Sepsis Recent Fever Within 48 Hours Sepsis New/Unexplained Change in Mental Status Sepsis Action Taken by Nursing Laboratory Data 03/18/24 11:54 03/18/24 11:54 Lab Results 03/18/24 03/18/24 03/18/24 Range/Units 11:54 12:36 12:51 WBC 16.74 H (4.8-10.8) K/ul RBC 4.98 (4.70-6.10) M/uL Hgb 15.1 (14.0-18.0) g/dl POC Hgb 16.0 (14.0-18.0) g/dl Hct 45.7 (42.0-52.0) % POC Hct 47 (42-52) % MCV 91.8 (80.0-100.0) fL MCH 30.3 (25.0-34.0) pg MCHC 33.0 (32.0-36.0) g/dL RDW Std Deviation 46.5 H (36.4-46.3) fL RDW Coeff of Jose 13.9 (11.5-14.5) % Plt Count 228 (130-400) K/uL MPV 10.4 (9.4-12.4) fL Immature Gran % (Auto) 2.7 % Neut % (Auto) 84.7 % Lymph % (Auto) 2.2 % [place] % (Auto) 9.1 % Eos % (Auto) 0.9 % Baso % (Auto) 0.4 % Neut # (Auto) 14.18 H (1.40-6.50) K/uL Lymph # (Auto) 0.36 L (1.20-3.40) K/uL [place] # (Auto) 1.53 H (0.11-0.59) K/uL Eos # (Auto) 0.15 (0.00-0.50) K/uL Baso # (Auto) 0.07 (0.00-0.20) K/uL Immature Gran # (Auto) 0.45 H (0.01-0.20) K/uL POC Sodium 136 (135-144) mmol/L Sodium 136 (136-145) mmol/L POC Potassium 3.3 (3.3-5.0) mmol/L Potassium 3.1 L (3.5-5.1) mmol/L POC Chloride 97 L (101-112) mmol/L Chloride 95 L (98-107) mmol/L Carbon Dioxide 31 (21-32) mmol/L POC Total CO2 30 (24-31) mmol/L Anion Gap 10 (3-11) POC Anion Gap 14.0 L (16-25) mmol/L POC BUN 43 H (7-18) mg/dl BUN 46 H (6-23) mg/dl Creatinine 1.58 H (0.6-1.4) mg/dl POC Creatinine 1.9 H (0.6-1.3) mg/dl Est Cr Clr Drug Dosing 52.6 ml/min Est GFR ( Amer) 48.9 ml/min Est GFR (Non-Af Amer) 42.2 ml/min BUN/Creatinine Ratio 29.1 H (10-20) Glucose 124 H (70-99(Fasting)) mg/dl POC Glucose (other) 130 H (70-99) mg/dl Lactate 2.1 H* (0.4-2.0) mmol/L Calcium 11.1 H (8.6-10.3) mg/dl POC Ioniz Calcium Mary 1.27 (1.12-1.32) mmol/l Magnesium 2.0 (1.7-2.4) mg/dl Total Bilirubin 0.5 (0.2-1.0) mg/dl AST 27 (13-39) U/L ALT 35 (7-52) U/L Alkaline Phosphatase 141 H (34-104) U/L Troponin I High Sens 12.9 (0-20) pg/ml C-Reactive Protein 25.76 H (0-0.5) mg/dl Total Protein 7.6 (6.0-8.3) gm/dl Albumin 3.9 (3.4-5.0) gm/dl Globulin 3.7 (2.5-4.0) gm/dl Albumin/Globulin Ratio 1.1 (0.9-2) Procalcitonin 0.80 H (0-0.5) ng/ml Urine Color Urine Appearance (Clear) Urine pH (4.5-7.5) Ur Specific [place] (1.000-1.030) Urine Protein (Negative) Urine Glucose (UA) (Negative) Urine Ketones (Negative) Urine Blood (Negative) Urine Nitrite (Negative) Urine Bilirubin (Negative) Urine Urobilinogen (Negative) Ur Leukocyte Esterase (Negative) Urine WBC (Auto) (0-5) /hpf Urine RBC (Auto) (0-2) /hpf U Hyaline Cast (Auto) (0-2) /lpf U Epithel Cells (Auto) (0-2) /hpf Urine Bacteria (Auto) (None Seen) 03/18/24 03/18/24 Range/Units 13:50 15:26 WBC (4.8-10.8) K/ul RBC (4.70-6.10) M/uL Hgb (14.0-18.0) g/dl POC Hgb (14.0-18.0) g/dl Hct (42.0-52.0) % POC Hct (42-52) % MCV (80.0-100.0) fL MCH (25.0-34.0) pg MCHC (32.0-36.0) g/dL RDW Std Deviation (36.4-46.3) fL RDW Coeff of Jose (11.5-14.5) % Plt Count (130-400) K/uL MPV (9.4-12.4) fL Immature Gran % (Auto) % Neut % (Auto) % Lymph % (Auto) % [place] % (Auto) % Eos % (Auto) % Baso % (Auto) % Neut # (Auto) (1.40-6.50) K/uL Lymph # (Auto) (1.20-3.40) K/uL [place] # (Auto) (0.11-0.59) K/uL Eos # (Auto) (0.00-0.50) K/uL Baso # (Auto) (0.00-0.20) K/uL Immature Gran # (Auto) (0.01-0.20) K/uL POC Sodium (135-144) mmol/L Sodium (136-145) mmol/L POC Potassium (3.3-5.0) mmol/L Potassium (3.5-5.1) mmol/L POC Chloride (101-112) mmol/L Chloride (98-107) mmol/L Carbon Dioxide (21-32) mmol/L POC Total CO2 (24-31) mmol/L Anion Gap (3-11) POC Anion Gap (16-25) mmol/L POC BUN (7-18) mg/dl BUN (6-23) mg/dl Creatinine (0.6-1.4) mg/dl POC Creatinine (0.6-1.3) mg/dl Est Cr Clr Drug Dosing ml/min Est GFR ( Amer) ml/min Est GFR (Non-Af Amer) ml/min BUN/Creatinine Ratio (10-20) Glucose (70-99(Fasting)) mg/dl POC Glucose (other) (70-99) mg/dl Lactate 1.4 (0.4-2.0) mmol/L Calcium (8.6-10.3) mg/dl POC Ioniz Calcium Mary (1.12-1.32) mmol/l Magnesium (1.7-2.4) mg/dl Total Bilirubin (0.2-1.0) mg/dl AST (13-39) U/L ALT (7-52) U/L Alkaline Phosphatase (34-104) U/L Troponin I High Sens (0-20) pg/ml C-Reactive Protein (0-0.5) mg/dl Total Protein (6.0-8.3) gm/dl Albumin (3.4-5.0) gm/dl Globulin (2.5-4.0) gm/dl Albumin/Globulin Ratio (0.9-2) Procalcitonin (0-0.5) ng/ml Urine Color Yellow Urine Appearance Clear (Clear) Urine pH 5.5 (4.5-7.5) Ur Specific [place] 1.018 (1.000-1.030) Urine Protein Negative (Negative) Urine Glucose (UA) Negative (Negative) Urine Ketones Negative (Negative) Urine Blood Trace H (Negative) Urine Nitrite Negative (Negative) Urine Bilirubin Negative (Negative) Urine Urobilinogen Negative (Negative) Ur Leukocyte Esterase 1+ H (Negative) Urine WBC (Auto) 0-5 (0-5) /hpf Urine RBC (Auto) 0-2 (0-2) /hpf U Hyaline Cast (Auto) 6-10 H (0-2) /lpf U Epithel Cells (Auto) 0-2 (0-2) /hpf Urine Bacteria (Auto) None Seen (None Seen) Administered Medications Discontinued Medications Diphenhydramine HCl (Diphenhydramine 50 Mg/Ml Vial) 25 mg IV NOW STA Stop: 03/18/24 18:43 Last Admin: 03/18/24 19:10 Dose: 25 mg Documented By: ALLY Hydromorphone HCl (Hydromorphone Inj 0.5 Mg/0.5 Ml Syr) 0.5 mg IV NOW STA Stop: 03/18/24 15:38 Last Admin: 03/18/24 15:44 Dose: 0.5 mg Documented By: VAHID Hydromorphone HCl (Hydromorphone Inj 0.5 Mg/0.5 Ml Syr) 0.5 mg IV NOW STA Stop: 03/18/24 18:07 Last Admin: 03/18/24 18:24 Dose: 0.5 mg Documented By: VAHID Sodium Chloride (Nss) 1,000 mls @ 999 mls/hr IV .Q1H1M ONE Stop: 03/18/24 12:42 Last Infusion: 03/18/24 13:29 Dose: Infused Documented By: Admin: 03/18/24 12:23 Dose: 999 mls/hr Documented By: JANNETTE Vancomycin HCl 2,750 mg/ (Sodium Chloride) 555 mls @ 200 mls/hr IV NOW ONE Stop: 03/18/24 15:38 Last Infusion: 03/18/24 19:04 Dose: 0 mls/hr Documented By: Admin: 03/18/24 14:49 Dose: 200 mls/hr Documented By: VAHID Piperacillin Sod/Tazobactam Sod (Zosyn) 4.5 gm in 100 mls @ 200 mls/hr IV NOW ONE Stop: 03/18/24 13:21 Last Infusion: 03/18/24 14:48 Dose: Infused Documented By: Admin: 03/18/24 13:35 Dose: 200 mls/hr Documented By: VAHID Acetaminophen (Ofirmev) 1,000 mg in 100 mls @ 400 mls/hr IV NOW STA Stop: 03/18/24 13:37 Last Infusion: 03/18/24 14:48 Dose: Infused Documented By: Admin: 03/18/24 13:37 Dose: 400 mls/hr Documented By: VAHID Ceftriaxone Sodium (Rocephin) 2,000 mg in 50 mls @ 100 mls/hr IV ONE STA Stop: 03/18/24 18:02 Last Admin: 03/18/24 19:10 Dose: 100 mls/hr Documented By: ALLY Ioversol (Optiray 320 100ml) 94 ml IV ONCE ONE Stop: 03/18/24 14:33 Last Admin: 03/18/24 14:32 Dose: 94 ml Documented By: TAI Imaging Data Radiologist's Impression: Chest X-Ray 03/18/24 11:44 XR chest 1V not portable CLINICAL HISTORY: infection TECHNIQUE: Single frontal radiograph of the chest was obtained. Comparison: Comparison is made to chest radiograph 09/27/2023 FINDINGS: Exam is limited by underpenetration. Cardiomegaly is noted. The aortic arch is calcified. The lungs are clear. No evidence of pleural effusion or pneumothorax. IMPRESSION: No acute abnormalities and in particular no radiographic evidence of pneumonia. ACT 112: Negative or not required by law. Electronically signed by: Doc Connors M.D. 03/18/2024 12:18 PM Abdomen/Pelvis CT 03/18/24 12:33 CT abd pelvis IV con only CLINICAL HISTORY: Cellullitis to groin, concern for Carol's TECHNIQUE: Helical axial images of the abdomen and pelvis were obtained and displayed. Automated dose lowering techniques and/or adjustment according to patient size were utilized for this exam. This exam was performed with intravenous contrast. CT DOSE: 1638.54 mGy.cm COMPARISON: Comparison is made to CT abdomen pelvis 09/05/2022 FINDINGS: Lower chest: Bibasilar atelectasis versus scarring is seen. Bronchial wall thickening is seen. Aortic valvular prosthesis is seen. Liver: Left hepatic cyst is seen. Gallbladder and biliary tree: No calcified gallstones. Normal caliber wall. No intra- or extrahepatic biliary ductal dilation. Pancreas: Unremarkable, no focal lesions. Spleen: Unremarkable. Adrenals: Unremarkable. Kidneys and ureters: Hepatic cysts are seen. Bladder: Unremarkable. Reproductive organs: Bilateral vasectomy clips are seen. Bilateral hydroceles are seen. Bowel: Unremarkable. Lymph nodes Retroperitoneal: Unremarkable. Pelvic: Unremarkable. Mesenteric: Unremarkable. Peritoneum: Normal. Vessels: Atherosclerotic calcifications are seen. Abdominal wall: Partially visualized subcutaneous fat stranding in the anterior scrotal wall as visualized. Bones: Degenerative changes in the visualized spine. IMPRESSION: Partially visualized subcutaneous fat stranding in the visualized portion of the scrotum, [id number] is highly limited. No subcutaneous emphysema or drainable fluid collection is seen ACT 112: Negative or not required by law. Electronically signed by: Doc Connors M.D. 03/18/2024 2:51 PM Scrotum Ultrasound 03/18/24 14:56 ULTRASOUND TESTES AND SCROTUM CLINICAL HISTORY: Scrotal edema COMPARISON STUDY: Scrotal ultrasound dated 12/16/2019. TECHNIQUE: Real-time, grayscale, and color Doppler sonography of the testes and scrotum is performed. Images are reviewed in the transverse and longitudinal planes. FINDINGS: The testes are normal in size and homogeneous in echotexture. The right testis measures 3.0 x 2.0 x 2.5 cm and the left testis measures 3.5 x 1.6 x 2.4 cm. No intratesticular mass is seen. Tubular ectasia of the rete testis is seen on the right. Testicular blood flow is normal and symmetric. Normal Doppler waveforms are identified in both testes. The epididymal heads are normal in appearance. A right epididymal head cyst measures 3 mm. A 1.9 cm epididymal head cyst versus spermatocele is seen on the left. There is a large right-sided hydrocele. No hydrocele is seen on the left and no varicocele is identified. IMPRESSION: 1. No acute sonographic abnormality is seen involving the testes or scrotum. 2. Large right-sided hydrocele. This was also seen in 2019. 3. Additional findings as above. ACT 112: Negative or not required by law. Electronically signed by: Ifeanyi Mcdonald M.D. 03/18/2024 5:00 PM Discharge Plan Visit Data Chief Complaint: Referred by Doctor Stated Complaint: INFECTION, LOW WHITE BLOOD CELL ED Provider: Janice Birmingham Discharge Problem: Cellulitis, Scrotal swelling, Wound of groin, Hydrocele, left Forms Stand Alone Forms: My [facility] PasswordBox Prescriptions Prescriptions: No Action tamsulosin 0.4 mg capsule 0.4 mg PO HS Qty: 90 3RF Rx Instructions: TAKE 1 CAPSULE AT BEDTIME Suflave 178.7-7.3-0.5 gram recon soln See Rx Instructions PO .COMPLEX Qty: 2 0RF Rx Instructions: orally; TAKE FIRST DOSE AT 6 PM AND SECOND DOSE 6 HOURS PRIOR TO PROCEDURE BIN: [id number] PCN: CN GROUP: [id number] Centrum Silver 0.4-300-250 mg-mcg-mcg tablet 1 tab PO QAM [id number] serr [Osteo Bi-Flex (5-Loxin)] 1,500-400-100 mg-unit-mg tablet 1 tab PO QAM betamethasone dipropionate 0.05 % cream 1 applic TOP DAILY PRN (Reason: skin irritation) Qty: 45 3RF omega 2-sgt-dwa-fish oil [Fish Oil] 60-90-500 mg capsule 1 cap PO QAM potassium chloride 20 mEq tablet extended release 10 meq PO QAM duloxetine [Cymbalta] 60 mg capsule,delayed release(DR/EC) 60 mg PO QPM spironolactone 25 mg tablet 25 mg PO DAILY metoprolol succinate 25 mg tablet extended release 24 hr 25 mg PO DAILY Eliquis 5 mg tablet 5 mg PO BID 90 Days Qty: 180 3RF Rx Instructions: hold 48 hours prior to surgery Jublia 10 % solution with applicator 1 applic topical DAILY 336 Days Qty: 8 0RF torsemide 20 mg Tablet 40 mg PO QAM ascorbic acid (vitamin C) [Vitamin C] 250 mg Tablet 250 mg PO QAM cyanocobalamin (vitamin B-12) [Vitamin B-12] 1,000 mcg tablet 5,000 mcg PO QAM ferrous sulfate [iron] 325 mg (65 mg iron) Tablet 325 mg PO QAM atorvastatin 40 mg tablet 40 mg PO QPM ibuprofen 200 mg Tablet 400 mg PO Q6H PRN (Reason: FEVER/PAIN) Mitoq 1 tab PO QAM Rx Instructions: supplement Referrals Referrals: Chino Leavitt DO [Primary Care Provider] -
[2024-03-18] MEDS: PIPERACILLIN/TAZOBACTAM 4.5 GM/100 ML BAG IV ONE (13:35)
[2024-03-18] MEDS: ACETAMINOPHEN 1,000 MG/100 ML VIAL IV STA (13:37)
[2024-03-18] MEDS: OPTIRAY 320 100ml IV ONE (14:32)
[2024-03-18] MEDS: VANCOMYCIN HCL 2,750 MG in SODIUM CHLORIDE 0.9% 500 ML IV ONE (14:49)
--- NOTE | 2024-03-18 14:53 | CT Scan Report ---
CT abd pelvis IV con only CLINICAL HISTORY: Cellullitis to groin, concern for Carol's TECHNIQUE: Helical axial images of the abdomen and pelvis were obtained and displayed. Automated dose lowering techniques and/or adjustment according to patient size were utilized for this exam. This e xam was performed with intravenous contrast. CT DOSE: 1638.54 mGy.cm COMPARISON: Comparison is made to CT abdomen pelvis 09/05/2022 FINDINGS: Lower chest: Bibasilar atelectasis versus scarring is seen. Bronchial wall thickening is seen. Aorti c valvular prosthesis is seen. Liver: Left hepatic cyst is seen. Gallbladder and biliary tree: No calcified gallstones. Normal caliber wall. No intra- or extrahepatic biliary ductal dilation. Pancreas: Unremarkable, no focal lesions. Spleen: Unremarkable. Adrenals: Unremarkable. Kidneys and ureters: Hepatic cysts are seen. Bladder: Unremarkable. Reproductive organs: Bilateral vasectomy clips are seen. Bilateral hydroceles are seen. Bowel: Unremarkable. Lymph nodes Retroperitoneal: Unremarkable. Pelvic: Unremarkable. Mesenteric: Unremarkable. Peritoneum: Normal. Vessels: Atherosclerotic calcifications are seen. Abdominal wall: Partially visualized subcutaneous fat stranding in the anterior scrotal wall as visua lized. Bones: Degenerative changes in the visualized spine. IMPRESSION: Partially visualized subcutaneous fat stranding in the visualized portion of the scrotum, field-of-vi ew is highly limited. No subcutaneous emphysema or drainable fluid collection is seen ACT 112: Negative or not required by law. Electronically signed by: Doc Connors M.D. 03/18/2024 2:51 PM
[2024-03-18] MEDS: HYDROmorphone INJ 0.5 MG/0.5 ML SYR IV STA ×3 (15:44→20:55)
[2024-03-18 16:03] LABS: Appearance Urine Clear (Clear); Bacteria Urine Automated None Seen (None Seen); Bilirubin Urine Negative (Negative); Blood Urine Trace (Negative); Color Urine Yellow; Epithelial Cell Urine Auto 0-2 /hpf (0-2); Glucose Urine UA Negative (Negative); Ketones Urine Negative (Negative); Leukocyte Esterase Urine 1+ (Negative); Nitrite Urine Negative (Negative); Protein Urine Negative (Negative); RBC Urine Automated 0-2 /hpf (0-2); Specific Gravity Urine 1.018 (1.000-1.030); Urobilinogen Urine Negative (Negative); WBC Urine Automated 0-5 /hpf (0-5); pH Urine 5.5 (4.5-7.5)
--- NOTE | 2024-03-18 16:27 | Urology Consultation ---
Date of Consultation March 18, 2024 Assessment & Plan (1) Scrotal swelling: (2) Cellulitis: (3) Wound of groin: Plan 73-year-old male with 3-4 weeks of progressive erythema of the scrotum, groins and suprapubic area. No evidence of underlying abscess on CT scan or ultrasound. The skin in this area appears extremely irritated with some breakdown of the epidermis, with superficial sloughing in the pressure areas (border pannus). On exam I do not appreciate any overtly necrotic tissue, there is no crepitus or fluctuance. At this point, we will hold off on surgical intervention. I suspect there is an underlying cellulitis which should be treated with antibiotics. I am suspicious that the overlying skin breakdown could be a reaction to the numerous topical therapies that he has tried (2 different steroid ointments, 2 different lidocaine creams, zinc). If this was a systemic epidermal reaction such as TENS or Tracy-Priyank, I would expect it to be more widespread. If this was an underlying progressive necrotizing soft tissue infection, I would expected to advance much more rapidly than it has over the past couple weeks. For now, would recommend the following: Broad-spectrum antibiotics, narrow based on culture data Agree with blood cultures Could consider systemic steroids if this is thought to be a inflammatory response Wound care nursing consult for additional recommendations Urology will follow along History of Present Illness Reason for Consultation: Scrotal cellulitis/infection History of Present Illness This is a 73-year-old with past medical history of atrial fibrillation, prediabetes, obesity, BPH, and kidney stones who presented to the emergency department for evaluation of groin rash/cellulitis. He developed redness of his groin approximately 4 weeks ago and initially tried OTC topical antifungals. He reports no improvement with topical agents. He was evaluated by dermatology who suspected bacterial infection and took skin swab culture. He was started on oral antibiotics (cefdinir) by his PCP. He reports he was referred by PCP to the emergency department due to worsening symptoms. On arrival to ED, he was afebrile and hemodynamically stable. Labs notable for leukocytosis (WBC 16.74), potassium 3.1, creatinine 1.58, C-reactive protein 25.76, and lactate 2.1. Urinalysis showed trace blood, 1+ LE, 0-2 RBC; negative for bacteria. Blood cultures collected and pending. Workup included CT abdomen pelvis with IV contrast. CT independently reviewed and shows partially visualized subcutaneous fat stranding in the visualized portion of the scrotum, view of the scrotum is limited, there is fluid consistent with bilateral hydroceles. No subcutaneous emphysema or drainable fluid collection is seen. He was treated with IV Zosyn and vancomycin in the emergency department. He is being admitted to hospital medicine service for suspected cellulitis. As the CT did not completely evaluate the scrotum, scrotal ultrasound was performed. This demonstrated hydrocele fluid, No abscesses appreciated. Patient seen and examined in the emergency department. present. He reports discomfort from his rash. Reports burning sensation. He has been trying various topical agents including lidocaine. 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 He notes worsening of rash and discomfort which prompted his ER presentation. He reports intermittent low-grade temperatures (~99) at home with an episode of chills. He is voiding spontaneously, no dysuria or hematuria. No nausea or vomiting. Allergies Allergy/AdvReac Type Severity Reaction Status Date / Time No Known Allergies Allergy Unknown Verified 09/19/23 14:54 Home Medications Medication Instructions Recorded Confirmed Type glucosamine [id number]-L6-Bfkjqhtky 1 tab PO QAM 02/19/19 11/29/23 History ellis 1,500 mg-400 unit-100 mg tablet (Osteo Bi-Flex (5-Loxin)) puqaoqfy-mny-mivzc acid 0.4 1 tab PO QAM 02/19/19 11/29/23 History mg-lycopene 300 mcg-lutein 250 mcg tablet (Centrum Silver) ibuprofen 200 mg tablet 400 mg PO Q6H PRN FEVER/PAIN 08/31/21 11/29/23 History Mitoq 1 tab PO QAM 11/30/21 11/29/23 History omega 9-rln-auj-fish oil 60 mg-90 1 cap PO QAM 02/24/22 11/29/23 History mg-500 mg capsule (Fish Oil) potassium chloride 20 mEq 10 meq PO QAM 09/14/22 11/29/23 History tablet,extended release ascorbic acid (vitamin C) 250 mg 250 mg PO QAM 09/15/22 11/29/23 History tablet (Vitamin C) torsemide 20 mg tablet 40 mg PO QAM 09/15/22 11/29/23 History apixaban 5 mg tablet (Eliquis) 5 mg PO BID 90 days #180 tabs 10/04/22 11/29/23 Rx cyanocobalamin (vitamin B-12) 5,000 mcg PO QAM 10/04/22 11/29/23 History 1,000 mcg tablet (Vitamin B-12) tamsulosin 0.4 mg capsule 0.4 mg PO HS #90 caps 12/19/22 11/29/23 Rx betamethasone dipropionate 0.05 % 1 applic topical DAILY PRN skin 12/20/22 11/29/23 Rx topical cream irritation #45 grams efinaconazole 10 % topical 1 applic topical DAILY 48 weeks #8 12/27/22 11/29/23 Rx solution with applicator (Jublia) mL duloxetine 60 mg capsule,delayed 60 mg PO QPM 05/29/23 11/29/23 History release (Cymbalta) atorvastatin 40 mg tablet 40 mg PO QPM 09/19/23 11/29/23 History ferrous sulfate 325 mg (65 mg 325 mg PO QAM 09/19/23 11/29/23 History iron) tablet (iron) peg 3350-sod sulf,scbtv-wpc-cjw See Rx Instructions PO .COMPLEX #2 09/26/23 11/29/23 Rx 178.7-7.3-0.5-1.12-0.9 gram oral mL soln (Suflave) metoprolol succinate 25 mg 25 mg PO DAILY 11/29/23 11/29/23 History tablet,extended release 24 hr spironolactone 25 mg tablet 25 mg PO DAILY 11/29/23 11/29/23 History Patient History Medical History Pulmonary hypertension mild per 05/2023 echo: PASP 46 mmHg Iron deficiency anemia last infusion several months ago Cor pulmonale follows with [facility] pul and [facility] cardio CAD (coronary artery disease) non-occlusive per [facility] EMR Mitral regurgitation Echo 05/2023: Severe MR Diaphragm paralysis Follows with [facility], diagnosed with paralyzed diaphragm, pt states he uses a BIPAP at night History of COVID-19 11/2021- was asymptomatic Chronic anemia Orthopnea unable to lay flat per [facility] pulm-per pt can do so with BiPAP-required semi-recumbent position for previous hernia repair Atrial fibrillation Carotid artery stenosis <50% stenosis to bilateral ICAs per 2017 carotid doppler BPH (benign prostatic hyperplasia) Apnea, sleep BIPAP Surgical History H/O umbilical hernia repair Open Repair Incarcerated Umbilical Hernia (09/19/22): MAC at [facility]-required semi-recumbent position per records S/P cystoscopy with ureteral stent placement 12/2021 Hx of cardiac cath 11/04/21 ([facility]) > mild, non-obstructive CAD. Moderate aortic stenosis based on invasive AV assessment (calculated KATHRYN 1.5cm2, MG 35mmhg)--Patient reports this was done while he was awake d/t respiratory concerns. 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 Other No family history of adverse response to anesthesia Denies family history of Ovarian cancer Prostate cancer Myocardial infarction Lung cancer Colorectal cancer Social History Smoking Status: Never smoker Tobacco Type: Cigarettes Age Started Using Tobacco: 14; Age Quit Using Tobacco: 38; packs per day: 1.5; Second Hand Exposure: No; Do You Dip or Chew Tobacco: No; Hx Alcohol Use: Yes Alcohol type: beer, wine and hard liquor Alcohol type Comment: 1-2 drinks weekly, "if that" Preferred Language: Martiniquais Communication Ability: Effective Visual Impairment: No Limitations Hearing Ability: Normal 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 Beliefs That Will Affect Care: None marital status: Life Partner Current Living Situation: Significant Other current occupational status: retired How many Children do You have: 1 Feels Safe at Home: Yes Childhood Exposure to Second-Hand Smoke: Yes Diet: regular caffeine: Yes (1 cup of coffee daily ) Dental Care, Regularly: Yes Physical Activity Frequency: 3-4 Times per Week Physical Activity Frequency Comment: walks Seatbelt Use: always Sunscreen Use: No Assistive Devices: BiPap and Glasses Review of Systems Review of Systems: All systems reviewed & are unremarkable except as noted in HPI & below Physical Exam Constitutional: well developed and well nourished; no acute distress Respiratory: + tachypneic; no respiratory distress an d no labored breathing Musculoskeletal: Head/Neck/Chest: normocephalic Neurologic: moves all extremities and awake Psychiatric: Orientation: alert and oriented x 3 Genitourinary: There is significant erythema under his pannus, mons pubis and bilateral inguinal folds as well as scrotum. Skin appears macerated/ulcerated with some sloughing, slight weeping but no significant drainage. Penis is buried within the scrotum. There is some edema of the scrotum, no crepitus or fluctuance appreciated. No necrotic tissue appreciated. Results & Data Vital Signs (Past 12 Hours) Vital Signs Temp Pulse Resp BP Pulse Ox O2 Del Method 03/18/24 15:32 90 29 H 94 03/18/24 15:30 155/95 H 03/18/24 15:30 155/95 H 03/18/24 15:30 155/95 H 03/18/24 15:29 94 H 28 H 93 03/18/24 14:39 180/105 H 03/18/24 14:39 180/105 H 03/18/24 14:38 81 23 97 03/18/24 14:12 149/78 H 03/18/24 14:12 149/78 H 03/18/24 14:09 77 28 H 03/18/24 13:33 95 H 27 H 03/18/24 13:06 86 18 03/18/24 12:44 87 03/18/24 11:36 36.6 C 95 H 18 140/80 93 Room Air PG Care Time/CCT Total # of Minutes Spent Total Time Spent with Patient: Total time spent is greater than 50% in coordination of care (as documented) at patient's floor/unit and/or counseling patient: Coding Level of Care Code 70061 INT INP/OBS CARE 2/55MIN Diagnoses Scrotal swelling N50.89 Cellulitis L03.90 Wound of groin S31.109A
[2024-03-18] MEDS ORDERED: ACETAMINOPHEN 325 MG TAB PO PRN (16:52)
--- NOTE | 2024-03-18 17:01 | Ultrasound Report ---
ULTRASOUND TESTES AND SCROTUM CLINICAL HISTORY: Scrotal edema COMPARISON STUDY: Scrotal ultrasound dated 12/16/2019. TECHNIQUE: Real-time, grayscale, and color Doppler sonography of the testes and scrotum is performed. Images are reviewed in the transverse and longitudinal planes. FINDINGS: The testes are normal in size and homogeneous in echotexture. The right testis measures 3.0 x 2.0 x 2 .5 cm and the left testis measures 3.5 x 1.6 x 2.4 cm. No intratesticular mass is seen. Tubular ectas ia of the rete testis is seen on the right. Testicular blood flow is normal and symmetric. Normal Dop pler waveforms are identified in both testes. The epididymal heads are normal in appearance. A right epididymal head cyst measures 3 mm. A 1.9 cm e pididymal head cyst versus spermatocele is seen on the left. There is a large right-sided hydrocele. No hydrocele is seen on the left and no varicocele is identif ied. IMPRESSION: 1. No acute sonographic abnormality is seen involving the testes or scrotum. 2. Large right-sided hydrocele. This was also seen in 2020. 3. Additional findings as above. ACT 112: Negative or not required by law. Electronically signed by: Ifeanyi Mcdonald M.D. 03/18/2024 5:00 PM
--- NOTE | 2024-03-18 17:02 | History & Physical Report ---
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 Scrotal, bilateral inguinal, lower abdominal wall cellulitis, with open wounds Possible early sepsis given leukocytosis, heart rate more than 90 Started in the scrotal area, spreading to bilateral inguinal and lower abdominal wall Did not respond to oral amoxicillin, cefdinir Wound culture from [facility] dermatology clinic March 11, 2024: E. coli-resistant to ampicillin, cefazolin, cefoxitin, Bactrim Klebsiella-pansensitive Enterococcus-susceptible to ampicillin and vancomycin Blood cultures: Pending CT abdomen pelvis: Partially visualized subcutaneous fat stranding in the visualized portion of the scrotum, [id number] is highly limited. No subcutaneous emphysema or drainable fluid collection is seen Scrotal ultrasound: 1. No acute sonographic abnormality is seen involving the testes or scrotum. 2. Large right-sided hydrocele. This was also seen in 2019. 3. Additional findings as above. Lactic acid 2.1, improved to 1.4 Start daptomycin IV and ceftriaxone IV Patient reports severe pain over the affected area especially with ambulation Will order IV Dilaudid, [place] for pain control Avoid NSAIDs in light of [place] Consult ID Consult wound care nurse Acute kidney injury Likely secondary to dehydration, underlying infection, possible early sepsis Hold torsemide, spironolactone, potassium 1 L IV NSS given at the ER History of CAD CHF with Preserved ejection fraction Status post TAVR in January 2024 No cardiac symptoms Hold torsemide and spironolactone in light of [place]AP[place]ITA,possible early sepsis Monitor volume status closely Atrial fibrillation Continue Eliquis Metoprolol discontinued by cardiology service in light of bradycardia seen on Zio patch monitor COPD Obstructive sleep apnea Diaphragmatic dysfunction Neuromuscular respiratory weakness Continue BiPAP at counter hand respiratory status and pulse ox continuously in light of patient's Severe pain and need for IV narcotics at this time DVT prophylaxis Already on Eliquis Full code Disposition Admit to [facility] Lives with family at home History of Present Illness Chief Complaint: Progressive rash, open wounds x 4 weeks Primary Care Provider: Chino Leavitt DO 73-year-old male with history of coronary disease, CHF with preserved EF, 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 Patient states that 4 weeks ago, he started to notice redness and burning s ensation at the base of his scrotum. He was applying miconazole cream, and clobetasol cream over the area and also took amoxicillin p.o. with no success. In fact, the rash eventually spread to his inguinal and upper thigh and developed open areas. He had an appointment with the ornament setter last March 11, wound cultures obtained which eventually grew E. coli, Klebsiella, Enterococcus. He was seen by his PCP last Monday and patient was given a dose of IV ceftriaxone IM, and prescribed with oral cefdinir. Progression of the wounds and rash prompted ER consult. At the ER, patient received afebrile, heart rate in the 90s. White count 16,000 CT abdomen pelvis: Partially visualized subcutaneous fat stranding in the visualized portion of the scrotum, aetik-bq-jgbb is highly limited. No subcutaneous emphysema or drainable fluid collection is seen Scrotal ultrasound: 1. No acute sonographic abnormality is seen involving the testes or scrotum. 2. Large right-sided hydrocele. This was also seen in 2019. 3. Additional findings as above. He was given IV vancomycin and Zosyn, IV Dilaudid. On exam, patient is seen resting in bed sitting up, very pleasant gentleman. States pain over the affected area has become 10 out of 10 with standing and walking, at rest around 6 out of 10. No problems with voiding. No other new symptom Allergies Allergy/AdvReac Type Severity Reaction Status Date / Time No Known Allergies Allergy Unknown Verified 03/18/24 19:38 Home Medications Medication Instructions Recorded Confirmed Type glucosamine [id number] 1 tab PO QAM 02/19/19 03/18/24 History ellis 1,500 mg-400 unit-100 mg tablet (Osteo Bi-Flex (5-Loxin)) kyhpozdr-qys-dadwu acid 0.4 1 tab PO QAM 02/19/19 03/18/24 History mg-lycopene 300 mcg-lutein 250 mcg tablet (Centrum Silver) ibuprofen 200 mg tablet 400 mg PO Q6H PRN FEVER/PAIN 08/31/21 03/18/24 History Mitoq 1 tab PO QAM 11/30/21 03/18/24 History omega 9-wnb-ehz-fish oil 60 mg-90 1 cap PO QAM 02/24/22 03/18/24 History mg-500 mg capsule (Fish Oil) ascorbic acid (vitamin C) 250 mg 250 mg PO QAM 09/15/22 03/18/24 History tablet (Vitamin C) torsemide 20 mg tablet 40 mg PO QAM 09/15/22 03/18/24 History apixaban 5 mg tablet (Eliquis) 5 mg PO BID 90 days #180 tabs 10/04/22 03/18/24 Rx cyanocobalamin (vitamin B-12) 5,000 mcg PO QAM 10/04/22 03/18/24 History 1,000 mcg tablet (Vitamin B-12) tamsulosin 0.4 mg capsule 0.4 mg PO HS #90 caps 12/19/22 03/18/24 Rx betamethasone dipropionate 0.05 % 1 applic topical DAILY PRN skin 12/20/22 03/18/24 Rx topical cream irritation #45 grams atorvastatin 40 mg tablet 40 mg PO HS 09/19/23 03/18/24 History ferrous sulfate 325 mg (65 mg 325 mg PO QAM 09/19/23 03/18/24 History iron) tablet (iron) peg 3350-sod sulf,[id number]-mxl-gpk See Rx Instructions PO .COMPLEX #2 09/26/23 11/29/23 Rx 178.7-7.3-0.5-1.12-0.9 gram oral mL soln (Suflave) metoprolol succinate 25 mg 25 mg PO DAILY 11/29/23 03/18/24 History tablet,extended release 24 hr spironolactone 25 mg tablet 25 mg PO DAILY 11/29/23 03/18/24 History amoxicillin 500 mg capsule 500 mg PO TID 03/18/24 03/18/24 History duloxetine 30 mg capsule,delayed 60 mg PO HS 03/18/24 03/18/24 History release potassium chloride 10 mEq 10 meq PO QAM 03/18/24 03/18/24 History tablet,extended release(part/cryst) Past Med/Surg History Problem List (Updated 03/18/24 @ 19:31 by Janice Birmingham MD) Wound of groin (Acute) Cellulitis (Acute) Scrotal swelling (Acute) Hip arthritis Lymphopenia Bilateral nephrolithiasis Elevated lipoprotein(a) Umbilical hernia Diaphragmatic paralysis Encounter for pre-operative examination Congestive heart failure (Acute) EF 40-44% COPD (chronic obstructive pulmonary disease) controlled, stable per pt Tubular adenoma of colon Irregular sleep-wake rhythm, nonorganic origin orthopnea Carotid bruit Benign localized prostatic hyperplasia with lower urinary tract symptoms (LUTS) BMI 40.0-44.9, adult Testicular swelling, left Hydrocele, left (Acute) Moderate left ventricular hypertrophy CARRI (obstructive sleep apnea) Acute left lumbar radiculopathy Arthritis of knee, left Hip pain, left Idiopathic polyneuropathy mild per pt, feet bilat Left knee DJD History of colon polyps Pre-diabetes Facet arthritis of lumbar region Urinary symptom or sign Hematuria Atrial fibrillation with rapid ventricular response (Acute) Leukocytosis Orthopnea Dyspnea Afib Paroxysmal atrial fibrillation Coronary artery calcification seen on CT scan Orthopnea Hemidiaphragm paralysis Exertional shortness of breath Obesity Steatosis, liver Dysphagia Early satiety Squamous cell carcinoma in situ (SCCIS) Left ureteral stone Diaphragm dysfunction Weight loss Non-occlusive coronary artery disease Encounter for pre-operative examination Anemia (HFpEF) heart failure with preserved ejection fraction Muscle weakness Restrictive lung disease Metabolic alkalosis Kidney stone on left side Umbilical hernia Umbilical hernia (Acute) 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 Rosa Complex renal cyst Per ultrasound, annual surveillance being done Medical History Pulmonary hypertension mild per 05/2023 echo: PASP 46 mmHg Iron deficiency anemia last infusion several months ago Cor pulmonale follows with [facility] pulm and [facility] cardio CAD (coronary artery disease) non-occlusive per [facility] EMR Mitral regurgitation Echo 05/2023: Severe MR Diaphragm paralysis Follows with [facility], diagnosed with paralyzed diaphragm, pt states he uses a BIPAP at night History of COVID-19 11/2021- was asymptomatic Chronic anemia Orthopnea unable to lay flat per [facility] pul-per pt can do so with BiPAP-required semi-recumbent position for previous hernia repair Atrial fibrillation Carotid artery stenosis <50% stenosis to bilateral ICAs per 2017 carotid doppler BPH (benign prostatic hyperplasia) Apnea, sleep BIPAP Surgical History H/O umbilical hernia repair Open Repair Incarcerated Umbilical Hernia (09/19/22): MAC at [facility]-required semi-recumbent position per records S/P cystoscopy with ureteral stent placement 12/2021 Hx of cardiac cath 11/04/21 (S) > mild, non-obstructive CAD. Moderate aortic stenosis based on invasive AV assessment (calculated KATHRYN 1.5cm2, MG 35mmhg)--Patient reports this was done while he was awake d/t respiratory concerns. 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 Other No family history of adverse response to anesthesia Denies family history of Ovarian cancer Prostate cancer Myocardial infarction Lung cancer Colorectal cancer Social History Smoking Status: Never smoker Tobacco Type: Cigarettes Age Started Using Tobacco: 14; Age Quit Using Tobacco: 38; packs per day: 1.5; Second Hand Exposure: No; Do You Dip or Chew Tobacco: No; Hx Alcohol Use: Yes Alcohol type: beer, wine and hard liquor Alcohol type Comment: 1-2 drinks weekly, "if that" Preferred Language: Luxembourgish Communication Ability: Effective Visual Impairment: No Limitations Hearing Ability: Normal Warehouse Representative Required: No Beliefs That Will Affect Care: None marital status: Life Partner Current Living Situation: Significant Other current occupational status: retired How many Children do You have: 1 Feels Safe at Home: Yes Childhood Exposure to Second-Hand Smoke: Yes Diet: regular caffeine: Yes (1 cup of coffee daily ) Dental Care, Regularly: Yes Physical Activity Frequency: 3-4 Times per Week Physical Activity Frequency Comment: walks Seatbelt Use: always Sunscreen Use: No Assistive Devices: BiPap and Glasses Review of Systems Review of Systems: all noted and negative except for above Physical Exam Physical Exam: General- oriented x 3, not in distress, speaks in sentences with no effort or accessory muscle use Head- atraumatic Eyes- PERRL, EOMI, anicteric ENT- oropharynx clear Neck- supple, no JVD, no adenopathy, no thyromegaly; carotids +2/2, no bruits appreciated Lungs- clear to auscultation bilaterally, no rales/wheezes Heart- normal rate, regular rhythm; no murmur, no gallop, no rub appreciated Abdomen- normal bowel sounds, nondistended, soft, nontender, no masses or hepatosplenomegaly Abdomen/scrotum/bilateral inguinal area: Diffuse erythema, moist with yellow discharge, with open areas/excoriations noted on the scrotum, inguinal area and suprapubic/abdominal fold area Extremities- no pretibial edema, no calf tenderness; peripheral pulses intact Neuro- alert, oriented x 3; CN 2-12 grossly intact; motor 5/5 bilaterally;sensation 100% on all extremities; no other gross focal neurologic deficits Skin- warm & dry Results & Data Results & Data Vital Signs (Past 12 Hours) Vital Signs Temp Pulse Resp BP Pulse Ox O2 Del Method 03/18/24 16:53 91 H 21 93 Room Air 03/18/24 15:32 90 29 H 94 03/18/24 15:30 155/95 H 03/18/24 15:30 155/95 H 03/18/24 15:30 155/95 H 03/18/24 15:29 94 H 28 H 93 03/18/24 14:39 180/105 H 03/18/24 14:39 180/105 H 03/18/24 14:38 81 23 97 03/18/24 14:12 149/78 H 03/18/24 14:12 149/78 H 03/18/24 14:09 77 28 H 03/18/24 13:33 95 H 27 H 03/18/24 13:06 86 18 03/18/24 12:44 87 03/18/24 11:36 36.6 C 95 H 18 140/80 93 Room Air all noted and reviewed including below Code Status & VTE Plan VTE Prophylaxis Plan VTE Prophylaxis will be ordered: Yes
[2024-03-18] MEDS: diphenhydrAMINE 50 MG/ML VIAL IV STA (19:10)
[2024-03-18] MEDS: cefTRIAXone SODIUM 2,000 MG/50 ML BAG IV STA (19:10)
--- OUTSIDE RECORDS SUMMARY | 2024-03-18 19:20 | External Medical Summary | Summary of Care ---
Author Name Unknown Organization [facility] Address [address] [place] [address] Phone [phone] Care Team Providers Care Crop Quantitative Geneticist Name Role Phone Chino Leavitt DO Primary Care Provider [phone] Reason for Visit * Reason Comments Follow Up Encounter Details Date Type Department Care Team (Latest Contact Info) Description 03/15/2024 1:00 PM EDT Office Visit Family Practice [address] [place] [address] [place] [address] Chino Leavitt DO [address] [place] [address] Cellulitis of groin*; Heart failure with preserved left ventricular function (HFpEF) ([facility]); COPD, group B, by GOLD 2017 classification ([facility]); Permanent atrial fibrillation ([facility]); Sleep apnea, obstructive; S/P TAVR (transcatheter aortic valve replacement); Iron deficiency anemia secondary to inadequate dietary iron intake; Non-occlusive coronary artery disease; Diaphragm dysfunction; Need for hepatitis C screening test; Primary insomnia Allergies No known active allergiesdocumented as of this encounter (statuses as of 03/15/2024) Medications Medication Sig Dispensed Refills Start Date End Date Status Hskuzzyhwow-Tsyfozzio-Gd t C-Mn (GLUCOSAMINE CHONDR 500 COMPLEX) Capsule Take 1 Capsule by mouth every morning. Active Pomfret 3 1000 MG CAPS Take 1 Capsule by mouth in the morning. Active Multiple Vitamin (MULTI-DAY VITAMINS) Tablet Take 1 Tab by mouth daily. Active Co Q 10 10 MG Oral Capsule Take by mouth 1 Capsule daily . Active B-12 500 MCG Oral Tablet Take 1 Capsule by mouth in the morning. Active BiPAP every night at bedtime. 18/7 cm Active Ascorbic Acid 250 MG Oral Tablet Take 1 Tablet by mouth in the morning. 3 Active Acetaminophen 500 MG Oral Tablet (Tylenol) Take 2 tablets by mouth in the morning and 1 tablet in the evening 1 Active DULoxetine HCl 60 MG Oral Capsule Delayed Release Particles Take 1 Capsule by mouth every evening. Active Iron 325 (65 Fe) MG Oral Tablet Take 1 Tablet by mouth in the morning. 3 Active Potassium Chloride Christina ER 10 MEQ Oral Tablet Extended ReleaseIndications:Heart failure with preserved left ventricular function (HFpEF) (HCC) Take 1 Tablet by mouth in the morning. 90 Tablet 3 4 Active Spironolactone 25 MG Oral Tablet (Aldactone)Indications:H eart failure with preserved left ventricular function (HFpEF) (HCC) Take 1 Tablet by mouth in the morning. 90 Tablet 3 4 Active Triamcinolone Acetonide 0.1 % External Cream (Aristocort) Apply to affected area on forearm twice daily for up to two weeks if needed for itching 80 g 5 4 Active Fluorouracil 5 % External Cream (Efudex) Apply to site on the right cheek twice daily x 2 weeks 40 g 4 Active metOLazone 5 MG Oral Tablet (Zaroxolyn)Indications:C entrilobular emphysema (HCC),Pulmonary hypertension (HCC),Diaphragm dysfunction Take 1 Tablet by mouth as needed for Dyspnea. As needed average is about once every 10 days per patient 4 Active Diclofenac Sodium 1 % External Gel (Voltaren) Apply topically to affected area. Apply to right hip and knee Active Atorvastatin Calcium 40 MG Oral Tablet (Lipitor)Indications:Pur e hypercholesterolemia Take 1 Tablet by mouth in the morning. 90 Tablet 3 4 Active Tamsulosin HCl 0.4 MG Oral Capsule (Flomax) Take 1 Capsule by mouth in the morning. 90 Capsule 3 4 Active Additional Information Patient taking differently:0.4 mg OralQ-1999, Reported on 01/31/2024 Apixaban 5 MG Oral Tablet (Eliquis) Take 1 Tablet by mouth in the morning and 1 Tablet before bedtime. Do not start before January 19, 2024. 180 Tablet 3 4 Active Amoxicillin 500 MG Oral Capsule (Amoxil)Indications:S/P TAVR (transcatheter aortic valve replacement) Take 4 tablets 1 hour prior to dental procedures. 4 Capsule 5 4 Active Torsemide 20 MG Oral Tablet (Demadex)Indications:Pul monary hypertension (HCC) TAKE 2 TABLETS DAILY FIRST THING IN THE MORNING 180 Tablet 3 4 Active Zolpidem Tartrate ER 6.25 MG Oral Tablet Extended ReleaseIndications:Prima ry insomnia Take 1 Tablet by mouth at bedtime as needed for Sleep. 30 Tablet 4 Active Cefdinir 300 MG Oral Capsule (Omnicef)Indications:Rosa Maria lulitis of groin Take 1 Capsule by mouth in the morning and 1 Capsule before bedtime. Do all this for 10 days. 20 Capsule 4 024 Active Amoxicillin 500 MG Oral Capsule (Amoxil)Indications:Cell ulitis of groin Take 1 Capsule by mouth in the morning and 1 Capsule at noon and 1 Capsule before bedtime. Do all this for 10 days. 30 Capsule 4 024 Active NATURAL SUPPLEMENT Take 20 mg by mouth in the morning and 20 mg before bedtime. CBD oil. 024 Discontin ued(Medic ation List Clean Up) Zolpidem Tartrate ER 6.25 MG Oral Tablet Extended Release Take 1 Tablet by mouth at bedtime as needed. 4 024 Discontin ued(Refil l) Hospital, Clinic, or Other Facility Administered Medication Ordered Dose Route Frequency Start Date End Date Status cefTRIAXone (Rocephin) inj 1 gIndications:Cellulitis of groin 1 g IM ONCE 03/15/2024 03/15/2024 Ended documented as of this encounter (statuses as of 03/15/2024) Active Problems Problem Noted Date Diagnosed Date Permanent atrial fibrillation 02/01/2024 S/P TAVR (transcatheter aortic valve replacement ) 01/17/2024 Iron deficiency anemia secon ramonita to inadequate dietary iron intake 04/21/2023 Persistent atrial fibrillation 01/25/2023 COPD, group B, by GOLD 2017 classification 01/09 Overview: Per COPD GOLD Classification Neuromuscular respiratory weakness 12/29/2022 Heart failure with preserved left ventricular function (HFpEF) 05/26/2022 Sleep apnea, obstructive 05/26/2022 Severe aortic valve stenosis 05/26/2022 Diaphragm dysfunction 05/26/2022 Mixed restrictive and obstructive lung disease 0 05/26/2022 Non-occlusive coronary artery disease 05/26/2022 documented as of this encounter (statuses as of 03/15/2024) Resolved Problems Problem Noted Date Diagnosed Date Resolved Date COPD with emphysema 05/26/2022 03/03/20 23 Anemia 05/26/2022 04/21/2023 documented as of this encounter (statuses as of 03/15/2024) Immunizations Name Administration Dates Next Due COVID-19 mRNA, LNP-s, No Pre serve, 2-Dose Series (Gaosouyi) 03/30/2022,06/23/2021,10/02/2020,09/11 COVID-19, MRNA-LNP, 23-24, P F, 30 MCG/0.3 mL, 12 YRS AND ABOVE, IM (Rösler miniDaT-Comirnat) 03/15/2024,08/14/2023 Covid-19, Mrna, Lnp-s, Pf, B ivalent, 30 Mcg, IM, 12 yrs and above (Gaosouyi) 06/28/2022 Influenza, Whole Virus 07/12/1999 Pneumococcal Conjugate Vacc, 13 Valent (Prevnar) 12/25/2017,12/19/2014 Pneumococcal Polysaccharide PPV23 (Pneumovax) 12/19/2013 RSV Vac., Recomb, Adjuvant, PF,0.5 Ml (Arexvy) 10/12/2023 Seasonal Influenza Virus Vac cine, Unspecified Formulation 05/26/2022,07/03/2021,06/02/2015,07/10,06/04/2013,06/13/2012,06/13/2011 ,06/13/2010,09/10/2009,06/13/2009,11/0 02/2008,07/11/2007,08/10/2006, 5,07/09/2003,07/05/2002,07/17/2000 Seasonal Influenza, Quadriva lent Hd (Fluzone Hd) 05/29/2023,05/26/2022 Seasonal Influenza, Split, I IV3, With Preserve, Inj 06/18/2019,06/19/2018,07/18/2017,06/02 TD - Tetanus/Diptheria (ADULT) 01/01/2003 TDAP (age 10 and older)(Boostrix) 01/23/2023 TDAP, Age 7 and older, IM (Adacel) 12/18/2012 Varicella Zoster Vaccine (Adult) 04/14/2009 Zoster Vaccine Recombinant (Shingrix) 07/03/2018 ,04/30/2018 documented as of this encounter Social History Tobacco Use Types Packs/Day Years Used Date Smoking Tobacco: Former Cigarettes 1.5 24 1 965 1988 Passive Smoke Exposure: Past Smokeless Tobacco: Never Tobacco Cessation:Counseling Given: Yes Alcohol Use Standard Drinks/Week Comments Yes 0 (1 standard drink = 0.6 oz pure alcohol) Master's hard lemonade every other day PHQ-2 Answer Date Recorded PHQ Adult Total Score 0 01/19/2024 Hunger Vital Sign Answer Date Recorded Within the past 12 months, y ou worried that your food would run out before you got the money to buy more. Never true 01/19/20 24 Within the past 12 months, t he food you bought just didn't last and you didn't have money to get more. Never true 01/19/2024 Childcare Answer Date Recorded Do you feel overwhelmed with taking care of a child, family member or friend? No 01/19/2024 Does your family need help f inding childcare? (Household - for ages 0-17 years) Not on file 01/19/2024 Clothing Answer Date Recorded Have you been unable to get clothing when it was really needed? No 01/19/2024 Is your family able to get c lothes or diapers when needed? (Household - for ages 0-17 years) Not on file 01/19/2024 Personal Safety Answer Date Recorded Do you feel unsafe or have concerns for your saf ety? No 01/19/2024 Do you have concerns for you r family's safety? (Household - for ages 0-17 years) Not on file 01/19/2024 Utilities Answer Date Recorded Do you have trouble paying y our heating, water, or electric bill? No 01/19/2024 Is your family able to pay t he heat, water, or electric bill? (Household - for ages 0-17 years) Not on file 01/19/2024 Does your family have access to good internet? (Household - for ages 0-17 years) Not on file 01/19/2024 Employment Status Answer Date Recorded Are you unemployed or without regular income? No 01/19/2024 Does the household have a [facility] source of income? (Household - for ages 0-17 years) Not on file 01/19/2024 Social Connections Answer Date Recorded How often do you feel lonely or isolated from th ose around you? Never 01/19/2024 Financial Resource Strain Answer Date R ecorded Do you have any trouble payi ng for your medications, or do you think you might in the future? No 01/19/2024 Does your family have troubl e paying for medicine? (Household - for ages 0-17 years) Not on file 01/19/2024 Transportation Needs Answer Date Record ed READ ONLY Do you have troubl e getting a ride to medical visits or work? Never True 01/19/2024 Does your family have a hard time getting a ride to doctors visits? (Household - for ages 0-17 years) Not on file 01/19/2024 Has lack of transportation k ept you from medical appointments, meetings, work, or from getting things needed for daily living? Check all that apply. (Adult - for ages 18 years and over) Not on file 01/19/2024 Do you (or your family) have trouble finding or paying for a ride (transportation)? (Household - for ages 0-17 years) Not on file 01/19/2024 Housing Stability Answer Date Recorded Do you currently live in a s helter or have no steady place to sleep at night? No 01/19/2024 READ ONLY Do you think you a re at risk of becoming homeless? No 01/19/2024 Does your family worry about paying for your home or becoming homeless? (Household - for ages 0-17 years) Not on file 0 01/19/2024 Are you homeless or worried that you might be in the future? (Adult - for ages 18 years and over) Not on file Are you (or your family) ray eless or worried that you might be in the future? (Household - for ages 0-17 years) Not on file Food Insecurity Answer Date Recorded Do you need food for this week? No 01/19/2024 Are you able to get enough f ood for your family? (Household - for ages 0-17 years) Not on file 01/19/2024 Does your family need food t his week? (Household - for ages 0-17 years) Not on file 01/19/2024 Do you always have enough fo od for your family? (Household - for ages 0-17 years) Not on file 01/19/2024 Sex and Gender Information Value Date Recorded Sex Assigned at Male 01/23/2023 3:21 PM EDT Gender Identity Male 01/23/2023 3:21 PM EDT Sexual Orientation Straight 01/23/2023 3: 21 PM EDT Job Start Date Occupation Industry Not on file Not on file Not on file documented as of this encounter Last Filed Vital Signs Vital Sign Reading Time Taken Comments Blood Pressure 138/84 03/15/2024 1:15 PM EDT Pulse 92 03/15/2024 1:15 PM EDT Temperature 36.4 C (97.6 F) 03/15/2024 1:15 PM ED T Respiratory Rate 20 03/15/2024 1:15 PM EDT Oxygen Saturation 95% 03/15/2024 1:15 PM EDT Inhaled Oxygen Concentration - - Weight 125.3 kg (276 lb 3.2 oz) 03/15/2024 1:15 PM EDT Height 175.3 cm (5' 9") 03/15/2024 1:15 PM EDT Body Mass Index 40.79 03/15/2024 1:15 PM EDT documented in this encounter Functional Status Functional Status Response Date of Assess ment Are you deaf or do you have serious difficulty h earing? No 01/16/2024 Are you blind or do you have serious difficulty seeing, even when wearing glasses? No 01/16/2024 Do you have serious difficul ty walking or climbing stairs? (5 years old or older) No 01/16/2024 Do you have difficulty dress ing or bathing? (5 years old or older) No 01/16/2024 Because of a physical, menta l, or emotional condition, do you have difficulty doing errands alone such as visiting a doctor s office or shopping? (15 years old or older) No 01/16/20 24 Cognitive Status Response Date of Assessm ent Because of a physical, menta l, or emotional condition, do you have serious difficulty concentrating, remembering, or making decisions? (5 years old or older) No 01/16/2024 documented as of this encounter Progress Notes * Chino Leavitt, DO - 03/15/2024 2:20 PM EDT SUBJECTIVE: Josias De Los Santos is a 73 year old male. Chief Complaint Patient presents with Follow Up HPI: Patient is a 73 year old male with a history of Paradoxical Diaphragm Motion, Severe Aortic Valve Stenosis, Atrial Fibrillation, Obstructive Sleep Apnea, CHF with preserved ejection fraction, LVH, Iron Deficiency Anemia, Hyperlipidemia, and nonocclusive CAD that seen for follow up. TAVR was placed on 01/16/2024. No chest pain or shortness of breath are present. Weight is up. Patient has worsening groin rash for the last 4 weeks. The dermatitis bella but does not itch. No fever or chills are present. He was seen by Dermatology on 03/11 and culture was done. 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 Multiple Vitamin (MULTI-DAY VITAMINS) Tablet Take 1 Tab by mouth daily. Co Q 10 10 MG Oral Capsule Take by mouth 1 Capsule daily . B-12 500 MCG Oral Tablet Take 1 Capsule by mouth in the morning. BiPAP every night at bedtime. 18/7 cm Ascorbic Acid 250 MG Oral Tablet Take 1 Tablet by mouth in the morning. Acetaminophen 500 MG Oral Tablet (Tylenol) Take 2 tablets by mouth in the morning and 1 tablet in the evening DULoxetine HCl 60 MG Oral Capsule Delayed Release Particles Take 1 Capsule by mouth every evening. Iron 325 (65 Fe) MG Oral Tablet Take 1 Tablet by mouth in the morning. Potassium Chloride Christina ER 10 MEQ Oral Tablet Extended Release Take 1 Tablet by mouth in the morning. 90 Tablet 3 Spironolactone 25 MG Oral Tablet (Aldactone) Take 1 Tablet by mouth in the morning. 90 Tablet 3 metOLazone 5 MG Oral Tablet (Zaroxolyn) Take 1 Tablet by mouth as needed for Dyspnea. As needed average is about once every 10 days per patient Diclofenac Sodium 1 % External Gel (Voltaren) Apply topically to affected area. Apply to right hip and knee Atorvastatin Calcium 40 MG Oral Tablet (Lipitor) Take 1 Tablet by mouth in the morning. 90 Tablet 3 Tamsulosin HCl 0.4 MG Oral Capsule (Flomax) Take 1 Capsule by mouth in the morning. (Patient takingdifferently: Take 1 Capsule by mouth every evening.) 90 Capsule 3 Apixaban 5 MG Oral Tablet (Eliquis) Take 1 Tablet by mouth in the morning and 1 Tablet before bedtime. Do not start before January 19, 2024. 180 Tablet 3 Amoxicillin 500 MG Oral Capsule (Amoxil) Take 4 tablets 1 hour prior to dental procedures. 4 Capsule 5 Torsemide 20 MG Oral Tablet (Demadex) TAKE 2 TABLETS DAILY FIRST THING IN THE MORNING 180 Tablet 3 Zolpidem Tartrate ER 6.25 MG Oral Tablet Extended Release Take 1 Tablet by mouth at bedtime as needed for Sleep. 30 Tablet 0 Cefdinir 300 MG Oral Capsule (Omnicef) Take 1 Capsule by mouth in the morning and 1 Capsule before bedtime. Do all this for 10 days. 20 Capsule 0 Amoxicillin 500 MG Oral Capsule (Amoxil) Take 1 Capsule by mouth in the morning and 1 Capsule at noon and 1 Capsule before bedtime. Do all this for 10 days. 30 Capsule 0 Dalafitunfv-Nhrgzefuo-Lmk C-Mn (GLUCOSAMINE CHONDR 500 COMPLEX) Capsule Take 1 Capsule by mouth every morning. Triamcinolone Acetonide 0.1 % External Cream (Aristocort) Apply to affected area on forearm twice daily for up to two weeks if needed for itching 80 g 5 Fluorouracil 5 % External Cream (Efudex) Apply to site on the right cheek twice daily x 2 weeks 40 g 0 No current facility-administered medications for this visit. The patient's medication list was reviewed and updated as needed. Past Medical History: Diagnosis Date Anemia COPD with emphysema (HCC) Diaphragm dysfunction Heart failure with preserved left ventricular function (HFpEF) ([facility]) 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) Non-occlusive coronary artery disease Nonrheumatic aortic valve stenosis Pulmonary arterial hypertension (HCC) Sleep apnea, obstructive Past Surgical History: Procedure Laterality Date CORONARY ANGIOGRAPHY W/LEFT HEART CATH N/A 11/27/2023 CORONARY ANGIOGRAPHY W/LEFT HEART CATH [place] [facility] [place]ARY [place]GIOGRAP[place] W/RIGHT+LEFT CATH 11/04/2021 CORONARY ANGIOGRAPHY W/RIGHT+LEFT CATH performed by Kevin Espino DO [place] [facility] [place] INSERT HEART ELECTRODE, SNGL CHAMBR Right 01/16/2024 TEMPORARY PACEMAKER (SINGLE LEAD) performed by Melo Pena MD at [facility] [place] CYSTO W/INSERT URETERAL STENT Left 2021 REPLACE AORTIC VALVE, PERCUTANEOUS FEMORAL N/A 01/16/2024 REPLACE AORTIC VALVE, PERCUTANEOUS FEMORAL performed by Melo Pena MD [place] [facility] [place] REPLACE AORTIC VALVE, PERCUTANEOUS FEMORAL N/A 01/16/2024 REPLACE AORTIC VALVE, PERCUTANEOUS FEMORAL performed by Eugene Joe MD [place] [facility] [place] Review of patient's allergies indicates: No Known Allergies Review of Systems Constitutional: Negative for appetite change, fatigue and unexpected weight change. Respiratory: Negative for cough, shortness of breath and wheezing. Cardiovascular: Negative for chest pain, palpitations and leg swelling. Gastrointestinal: Negative for abdominal pain, blood in stool, constipation, diarrhea, nausea and vomiting. Genitourinary: Negative for dysuria, frequency and hematuria. Musculoskeletal: Chronic right hip and left knee pain are unchanged Skin: Positive for rash. Neurological: Negative for dizziness, syncope and headaches. Psychiatric/Behavioral: Negative for confusion, decreased concentration and sleep disturbance. OBJECTIVE: BP 138/84 | Pulse 92 | Temp 36.4 C (97.6 F) (Tympanic) | Resp 20 | Ht 1.753 m (5' 9") | Wt 125.3 kg (276 lb 3.2 oz) | SpO2 95% | BMI 40.79 kg/m | BSA 2.47 m Physical Exam Vitals and nursing note reviewed. Constitutional: General: He is not in acute distress. Appearance: Normal appearance. He is not toxic-appearing. HENT: Head: Normocephalic and atraumatic. Cardiovascular: Rate and Rhythm: Normal rate and regular rhythm. Heart sounds: Murmur heard. No gallop. Pulmonary: Effort: Pulmonary effort is normal. Breath sounds: Normal breath sounds. No wheezing, rhonchi or rales. Abdominal: General: Bowel sounds are normal. There is no distension. Palpations: Abdomen is soft. Tenderness: There is no abdominal tenderness. Musculoskeletal: Right lower leg: No edema. Left lower leg: No edema. Skin: Comments: Induration, excoriation, and erythema of bilateral inguinal area, genital area, and lowerabdomen Neurological: Mental Status: He is alert and oriented to person, place, and time. Mental status is at baseline. Motor: No weakness. Gait: Gait normal. Psychiatric: Mood and Affect: Mood normal. Behavior: Behavior normal. Thought Content: Thought content normal. PLAN AND ASSESSMENT: Cellulitis of groin (Primary) - Start Cefdinir 300 MG Oral Capsule (Omnicef); Take 1 Capsule by mouth in the morning and 1 Capsule before bedtime. Do all this for 10 days. - Start Amoxicillin 500 MG Oral Capsule (Amoxil); Take 1 Capsule by mouth in the morning and 1 Capsule at noon and 1 Capsule before bedtime. Do all this for 10 days. - cefTRIAXone (Rocephin) inj 1 g - COMPREHENSIVE METABOLIC PANEL; Future; Expected date: 03/15/2024 - CBC WITH WBC DIFFERENTIAL; Future; Expected date: 03/15/2024 - COMPREHENSIVE METABOLIC PANEL - CBC WITH WBC DIFFERENTIAL Imaging if no improvement by next week Heart failure with preserved left ventricular function (HFpEF) (HCC) Continue Torsemide, Metolazone, and Spironolactone COPD, group B, by GOLD 2017 classification (HCC) Permanent atrial fibrillation (HCC) Sleep apnea, obstructive S/P TAVR (transcatheter aortic valve replacement) Iron deficiency anemia secondary to inadequate dietary iron intake EGD and Colonoscopy when stable per Cardiology Non-occlusive coronary artery disease Diaphragm dysfunction Improving Need for hepatitis C screening test - HEPATITIS C ANTIBODY SCREEN WITH PROGRESSION TO HEPATITIS C RNA QUANTITATIVE; Future; Expected date: 03/15/2024 - HEPATITIS C ANTIBODY SCREEN WITH PROGRESSION TO HEPATITIS C RNA QUANTITATIVE Primary insomnia - Zolpidem Tartrate ER 6.25 MG Oral Tablet Extended Release; Take 1 Tablet by mouth at bedtime as needed for Sleep. Other orders - COVID-19, MRNA-LNP, PF, 23-24, 30MCG/0.3ML, IM, 12YRS AND ABOVE ([facility]) Follow Up: Return in about 1 week (around 03/22/2024), or if symptoms worsen or fail to improve. Chino Leavitt DO 2:20 PM 03/15/2024 documented in this encounter Nursing Notes * Aaliyah Sanchez LPN - 03/15/2024 2:00 PM EDT Pre-Administration Time Out Procedure Performed: Yes Patient Identified (Ask Name/Date of ): Yes Does the patient have a fever greater than 101 degrees today? No Patient allergic to latex? No Has the patient ever fainted after receiving an injection? No VFC Stock: No Injection(s) verified: Yes, Injection Name: Verified Side and Site: Yes Verified Shot(s) with Parent(s)/Patient: Yes documented in this encounter Plan of Treatment Upcoming Encounters Date Type Department Care Team (Late st Contact Info) Description 03/22/2024 10:40 AM EDT Office Visit Family Practice [address] [facility] [address] [facility] [place] [address] Chino Leavitt DO [address] [place] [address] 04/03/2024 7:15 AM EDT Cardiac Studies Cardiac Studies, [facility] [address] [facility] [place] [address] 04/23/2024 1:50 PM EDT Office Visit Dermatology [facility], [address] [place] [address] Trisha Pulido PA-C [address] [facility] [place] [address] 05/16/2024 12:00 PM EDT Hospital Encounter [place] [facility] [place] [facility] [facility] Waiting Unit, [address] [place] [facility] [place] [address] Melo Pena MD [address] [place] [facility] [place] [address] 05/16/2024 12:00 PM EDT - 05/16/2024 3:00 PM EDT Surgery [facility] [place] [facility] [place] [facility] [facility] Suite Waiting Unit, [address] [place] [facility] [place] [address] Melo Pena MD [address] [place] [address] PERCUTANEOUS CLOSURE LEFT ATRIAL APPENDAGE IMPLANT 05/16/2024 12:00 PM EDT Office Visit Cardiology [facility] [address] [place] [address] [facility] [address] [place] [address] 05/28/2024 12:15 PM EDT Office Visit Cardiology, [facility] [address] [facility] [place] [address] Kalpana Calloway, DO [address] [facility] [place] [address] 09/05/2024 2:00 PM EST Office Visit [facility], [facility] [place] [address] [place] [place] [address] [place] [address] 11/18/2024 1:00 PM EDT PulmDiagnostic Pulmonary Function [facility] [place] [address] [address] [place] [address] [facility] [place] [address] 11/18/2024 1:40 PM EDT Office Visit Pulmonary Medicine Urmila Irving [address] [id number] Wander Gonzalez MD [address] [address] Pending Results Name Type Priority Associated Diagnoses Date /Time HEPATITIS C ANTIBODY SCREEN WITH PROGRESSION TO HEPATITIS C RNA QUANTITATIVE Lab Routine Need for hepatitis C screening test 03/15/2024 2:10 PM EDT COMPREHENSIVE METABOLIC PANEL Lab Routine Cellulitis of groin 03/15/2024 2:10 PM EDT CBC WITH WBC DIFFERENTIAL Lab Routine Cellulitis of groin 03/15/2024 2:10 PM EDT HEPATITIS C ANTIBODY Lab Routine Need for hepatitis C screening test 03/15/2024 2:10 PM EDT HEPATITIS C RNA ADD ON Lab Routine Need for hepatitis C screening test 03/15/2024 2:10 PM EDT CBC Lab Routine Cellulitis of groin 03/15/2024 2:10 PM EDT DIFFERENTIAL, AUTOMATED Lab Routine Cellulitis of groin 03/15/2024 2:10 PM EDT Scheduled Orders Name Type Priority Associated Diagnoses Orde r Schedule HEPATITIS C ANTIBODY SCREEN WITH PROGRESSION TO HEPATITIS C RNA QUANTITATIVE Lab Routine Need for hepatitis C screening test Expected: 03/15/2024 (Approximate), Expires: 04/15/2025 COMPREHENSIVE METABOLIC PANEL Lab Routine Cellulitis of groin Expected: 03/15/2024 (Approximate), Expires: 03/15/2025 CBC WITH WBC DIFFERENTIAL Lab Routine Cellulitis of groin Expected: 03/15/2024 (Approximate), Expires: 03/15/2025 Scheduled Procedures Name Priority Associated Diagnoses Date/Ti me PERCUTANEOUS CLOSURE LEFT ATRIAL APPENDAGE IMPLANT Permanent atrial fibrillation (HCC) 05/16/2024 12:00 PM EDT Health Maintenance Due Date Last Done Comments Hepatitis C Screening 1968 Influenza Vaccine (FLU shot) (#1) 2024 05/29/2023, 05/26/2022, 05/26/2022, Additional history exists O2 ASSESSMENT COMPLETED IN PAST YEAR FOR COPD 01/15/2025 01/16/2024 Depression Screening 01/18/2025 01/19/2024 DTaP,Tdap,and Td Vaccines (3 - Td or Tdap) 01/23/2033 01/23/2023, 12/18/2012, 01/01/2003 Pneumococcal Vaccine: 65+ Years Completed 12/25/2017, 12/19/2014, 12/19/2013 Zoster Vaccines Completed 07/03/2018, 04/05, 04/14/2009 Colonoscopy Discontinued 11/18/2020 Colorectal Cancer Screening Discontinued Alpha-1 Antitrypsin Completed 06/07/2022 COVID-19 Vaccine Completed 03/15/2024, 07/2023, 06/28/2022, Additional history exists Cologuard Discontinued Fecal Occult Blood Test Discontinued HPV (Gardasil) Vaccine Aged Out No lo nger eligible based on patient's age to complete this topic Hepatitis B Vaccine Aged Out No longe r eligible based on patient's age to complete this topic MENINGOCOCCAL (MENACTRA/MENVEO) Aged Out No longer eligible based on patient's age to complete this topic Sigmoidoscopy Discontinued documented as of this encounter Medical Devices Implanted Type Area Stitcher Feeder Device Identifier Shelf Expiration Date Model / Serial / Lot Cath Thermodilution 6fr - [id number] Implanted:Qty: 1 on 11/04/2021 [place] Espino [place] [facility] [place] [employer] [id number] 10/13/2023 [id number] / / [id number] Valve Transcath Resilia 29mm - [id number] Implanted:Qty: 1 on 01/16/2024 by Melo Pena [place] [facility] [place] [employer] [id number] 06/19/2025 [id number] / / documented as of this encounter Visit Diagnoses Diagnosis Permanent atrial fibrillation (HCC)- Primary Atrial fibrillation Cellulitis of groin- Primary Cellulitis and abscess of trunk Heart failure with preserved left ventricular function (HFpEF) (HCC) Heart failure, unspecified COPD, group B, by GOLD 2017 classification (HCC) Permanent atrial fibrillation (HCC) Atrial fibrillation Sleep apnea, obstructive Obstructive sleep apnea (adult) (pediatric) S/P TAVR (transcatheter aortic valve replacement) Heart valve replaced by other means Iron deficiency anemia secondary to inadequate dietary iron intake Non-occlusive coronary artery disease Coronary atherosclerosis of unspecified type of vessel, [place] or graft Diaphragm dysfunction Disorders of diaphragm Need for hepatitis C screening test Special screening examination for other specified viral diseases Primary insomnia Persistent disorder of initiating or maintaining sleep Permanent atrial fibrillation (HCC) Atrial fibrillation documented in this encounter Administered Medications Inactive Administered Medications - up to 3 most recent administrations Medication Order MAR Action Action Date Dose Rate Site cefTRIAXone (Rocephin) inj 1 g 1 g, Intramuscular, ONCE, On Mon03/15/24 at 1430, For 1 dose Given 03/15/2024 1:57 PM EDT 1 g Dorsogluteal Right documented in this encounter Advance Directives * Full Code (Latest Code Status on File) Date Activated Date Inactivated Comments 01/16/2024 2:56 PM 01/18/2024 7:23 PM This order r eflects the patients wishes and were consensually agreed upon. Question Answer Comments Discussion of Advance Directives occurred with: Patient Healthcare Agents on File Name Relationship Healthcare Agent Relationship Communication Lexie Zuluaga Significant Other Health Care Re presentative (appointed verbally by patient or by statute hierarchy) .Bl[employer] Care Teams Crop Quantitative Geneticist Relationship Specialty Start Date End Date Chino Leavitt DO [address] [place] [address] PCP - General Internal Medicine 03/14/24 documented as of this encounter
--- OUTSIDE RECORDS SUMMARY | 2024-03-18 19:21 | External Medical Summary ---
Author Name Unknown Address Unknown Organization K01:[facility] [place] - [address] [place] [address] Laboratory Report Ordering Provider Test Date Status PAOLA HONG 03/11/2024 15:58:24 Final Observation Date Value Abnormality Reference (Units ) Status Bacteria identified in Specimen by Culture 03/11/2024 15:58:24 [id number]^ESCHE RICHIA COLI Abnormal Final Few Escherichia coli
Amp C Beta-lactamase producing organism. This gram negative bacilli displays in vitro resistance to multiple antibiotics. Bacteria identified in Specimen by Culture 03/11/2024 15:58:24 [id number]^KLEBSIELLA PNEUMONIAE Abnormal Final Few Klebsiella pneumoniae Bacteria identified in Specimen by Culture 03/11/2024 15:58:24 [id number]^ENTEROCOCCUS SPECIES Abnormal Final Few Enterococcus species Performing Location [facility] [place] - [address] [place] [address] Ordering Provider Test Date Status PAOLA HONG 03/11/2024 15:58:24 Final Observation Date Value Abnormality Reference (Units) Status Ampicillin 03/11/2024 15:58:24 >=32 Resistant Final Ampicillin + Sulbactam 03/11/2024 15:58:24 16 Intermediate Final Cefazolin 03/11/2024 15:58:24 >=64 Resistant Final Cefepime susceptibility 03/11/2024 15:58:24 <=1 Susceptible Final cefOXitin [Susceptibility] 03/11/2024 15:58:24 >=64 Resistant Final Ceftriaxone suceptibility 03/11/2024 15:58:24 <=1 Susceptible Final Ciprofloxacin 03/11/2024 15:58:24 <=0.25 Susceptible Final Gentamicin susceptibility 03/11/2024 15:58:24 <=1 Susceptible Final Levofloxacin susceptibility 03/11/2024 15:58:24 <=0.12 Susceptible Final Piperacillin + Tazobactamsusceptibility 03/11/2024 15:58:24 <=4 Susceptible Final TMP-SMZ susceptibility 03/11/2024 15:58:24 >=320 Resistant Final Performing Location [facility] [place] - [address] [place] [address] Ordering Provider Test Date Status PAOLA HONG 03/11/2024 15:58:24 Final Observation Date Value Abnormality Reference (Units) Status Ampicillin + Sulbactam 03/11/2024 15:58:24 <=2 Susceptible Final Cefepime susceptibility 03/11/2024 15:58:24 <=1 Susceptible Final Ceftriaxone suceptibility 03/11/2024 15:58:24 <=1 Susceptible Final Ciprofloxacin 03/11/2024 15:58:24 <=0.25 Susceptible Final Gentamicin susceptibility 03/11/2024 15:58:24 <=1 Susceptible Final Piperacillin + Tazobactamsusceptibility 03/11/2024 15:58:24 <=4 Susceptible Final TMP-SMZ susceptibility 03/11/2024 15:58:24 <=20 Susceptible Final Performing Location [facility] [place] - [address] [place] [address] Ordering Provider Test Date Status PAOLA HONG 03/11/2024 15:58:24 Final Observation Date Value Abnormality Reference (Units ) Status Ampicillin 03/11/2024 15:58:24 <=2 Susceptible Final Vancomycinsusceptibility 03/11/2024 15:58:24 1 Susceptible Final Test: Culture, Wound, Superf icial, Aerobic
Specimen Source: Scrotum
Specimen Type: Swab
Specimen Date: 03/11/2024 1558
Result Date: 03/16/2024 1432
Result Status: Final result
Abnormal: Yes
Resulting Lab: [facility] [place]
[address]
[place] [address]

CULTURE

Few Escherichia coli (Abnormal)

AmpC Beta-lactamase producing organism. This gram negative bacilli displays
in vitro resistance to multiple antibiotics.

Few Klebsiella pneumoniae (Abnormal)

Few Enterococcus species (Abnormal)

SUSCEPTIBILITY

Escherichia coli Klebsiella
pneumoniae
METHOD MICROBROTH DILUTIONS MICROBROTH DILUTIONS

AMPICILLIN >=32 Resistant
AMPICILLIN/SULBACTAM 16 Intermediate <=2 Susceptible
CEFAZOLIN >=64 Resistant
CEFEPIME <=1 Susceptible <=1 Susceptible
CEFOXITIN >=64 Resistant
CEFTRIAXONE <=1 Susceptible <=1 Susceptible
CIPROFLOXACIN <=0.25 Susceptible <=0.25 Susceptible
GENTAMICIN <=1 Susceptible <=1 Susceptible
LEVOFLOXACIN <=0.12 Susceptible
PIPERACILLIN TAZOBACTAM <=4 Susceptible <=4 Susceptible
TRIMETH/SULFAMETHOXAZOLE >=320 Resistant <=20 Susceptible
VANCOMYCIN

Enterococcus species
METHOD MICROBROTH DILUTIONS

AMPICILLIN <=2 Susceptible
AMPICILLIN/SULBACTAM
CEFAZOLIN
CEFEPIME
CEFOXITIN
CEFTRIAXONE
CIPROFLOXACIN
GENTAMICIN
LEVOFLOXACIN
PIPERACILLIN TAZOBACTAM
TRIMETH/SULFAMETHOXAZOLE
VANCOMYCIN 1 Susceptible

[facility] [place] - [address] [place] [address]
--- OUTSIDE RECORDS SUMMARY | 2024-03-18 19:21 | External Medical Summary | Summary of Care ---
Author Name Unknown Organization [facility] Address [address] [facility] [address] Phone [phone] Care Team Providers Care [employer] Travel Counselor Name Role Phone Chino Leavitt DO Primary Care Provider [phone] Reason for Visit * Reason Comments Rash Rash in groin area f or at least 3 weeks - has tried using hydrocortisone, Miconazole, Clobetasol. Only thing that has helped is the Bactine spray. Encounter Details Date Type Department Care Team (Late st Contact Info) Description 03/11/2024 3:30 PM EDT Office Visit Dermatology [facility] [address] [place] [address] Trisha Pulido PA-C [address] [place] [id number] Rash and nonspecific skin eruption* Allergies No known active allergiesdocumented as of this encounter (statuses as of 03/12/2024) Medications Medication Sig Dispensed Refills Start Date End Date Status Vxzodbhhtkm-Gztefmgng-Yal C-Mn (GLUCOSAMINE CHONDR 500 COMPLEX) Capsule Take 1 Capsule by mouth every morning. Active Newman 3 1000 MG CAPS Take 1 Capsule [...] by mouth in the morning. 3 Active NATURAL SUPPLEMENT Take 20 mg by mouth in the morning and 20 mg before bedtime. CBD oil. Active Potassium Chloride Christina ER 10 MEQ Oral Tablet Extended ReleaseIndications:Heart failure with preserved left ventricular function (HFpEF) (HCC) Take 1 Tablet by mouth in the morning. 90 Tablet 3 4 Active Spironolactone 25 MG Oral Tablet (Aldactone)Indications:He art failure with preserved left ventricular function (HFpEF) [...] 4 Active metOLazone 5 MG Oral Tablet (Zaroxolyn)Indications:Ce ntrilobular emphysema (HCC),Pulmonary hypertension (HCC),Diaphragm dysfunction Take 1 Tablet by mouth as needed for Dyspnea. As needed average is about once every 10 days per patient 4 Active Diclofenac Sodium 1 % External Gel (Voltaren) Apply topically to affected area. Apply to right hip and knee Active Atorvastatin Calcium 40 MG Oral Tablet (Lipitor)Indications:Pure hypercholesterolemia Take 1 Tablet by mouth in the morning. 90 Tablet 3 4 Active Tamsulosin HCl 0.4 MG Oral Capsule (Flomax) Take 1 Capsule by mouth in the morning. 90 Capsule 3 4 Active Additional Information Patient taking differently:0.4 mg OralQPM-1999, Reported on 01/31/2024 Apixaban 5 MG Oral Tablet (Eliquis) Take 1 Tablet by mouth in the morning and 1 Tablet before bedtime. Do not start before January 19, 2024. 180 Tablet 3 4 Active Zolpidem Tartrate ER 6.25 MG Oral Tablet Extended Release Take 1 Tablet by mouth at bedtime as needed. 4 Active Amoxicillin 500 MG Oral Capsule (Amoxil)Indications:S/P TAVR (transcatheter aortic valve replacement) Take 4 tablets 1 hour prior to dental procedures. 4 Capsule 5 4 Active Torsemide 20 MG Oral Tablet (Demadex)Indications:Pulm onary hypertension (HCC) TAKE 2 TABLETS DAILY FIRST THING IN THE MORNING 180 Tablet 3 4 Active documented as of this encounter (statuses as of 03/12/2024) Active Problems Problem Noted Date Diagnosed Date [...] as of this encounter (statuses as of 03/12/2024) Resolved Problems Problem Noted Date Diagnosed Date Resolved Date COPD with emphysema 05/26/2022 03/03/20 23 Anemia 05/26/2022 04/21/2023 documented as of this encounter (statuses as of 03/12/2024) Immunizations Name Administration Dates Next Due COVID-19 mRNA, LNP-s, No Pre serve, 2-Dose Series (Transactiv) 03/30/2022,06/23/2021,10/02/2020,09/11 COVID-19, MRNA-LNP, 23-24, P F, 30 MCG/0.3 mL, 12 YRS AND ABOVE, IM ([facility]) 08/14/2023 Covid-19, Mrna, Lnp-s, Pf, B ivalent, 30 Mcg, IM, 12 yrs and above (Pfizer) 06/28/2022 Influenza, Whole Virus 07/12/1999 Pneumococcal Conjugate Vacc, 13 Valent (Prevnar) 12/25/2017,12/19/2014 Pneumococcal Polysaccharide PPV23 (Pneumovax) 12/19/2013 RSV Vac., Recomb, Adjuvant, PF,0.5 Ml (Arexvy) 10/12/2023 Seasonal Influenza Virus Vac cine, Unspecified Formulation 05/26/2022,07/03/2021,06/02/2015,07/10,06/04/2013,06/13/2012,06/13/2011 ,06/13/2010,09/10/2009,06/13/2009,02/2008,07/11/2007,08/10/2006, 5,07/09/2003,07/05/2002,07/17/2000 Seasonal Influenza, Quadriva lent Hd (Fluzone [...] Tobacco: Former Cigarettes 1.5 24 1 965 - 1988 Passive Smoke Exposure: Past Smokeless Tobacco: Never Alcohol Use Standard Drinks/Week Comments Yes 0 [...] No 01/19/2024 Does the household have a re lar source of income? (Household - for ages [...] on file documented as of this encounter Functional Status Functional Status Response [...] (15 years old or older) No 01/16/20 Cognitive Status Response Date of Assessm ent Because of a physical, menta l, or emotional condition, do you have serious difficulty concentrating, remembering, or making decisions? (5 years old or older) No 01/16/2024 documented as of this encounter Progress Notes * Trisha Pulido PA-C - 03/11/2024 3:20 PM EDT Nursing Notes: Aaliyah Rockwell, ANTONIO 03/11/24 1523 Signed Chief Complaint Patient presents with Rash Rash in groin area for at least 3 weeks - has tried using hydrocortisone, Miconazole, Clobetasol. Only thing that has helped is the Bactine spray. 11/06/2023 (in office), Visit date not found (telemedicine) SUBJECTIVE: HPI: Josias De Los Santos is a 73 year old male seen today for evaluation and treatment of rash. Last office visit 11/06/23 Rash in groin x 3 weeks. Began on the scrotum with itching, burning and redness. Has been spreadingto nearby areas since then. Previous attempted tx includes clotrimazole, hydrocortisone 1%, clobetasol without improvement. Hasmore recently been using bactine spray with lidocaine and gets some relief. No changes in soaps, lotions, detergents. 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 Nonrheumatic aortic valve stenosis Pulmonary arterial hypertension ([facility]) Sleep apnea, obstructive Patient Active Problem List Diagnosis Heart failure with preserved left ventricular function (HFpEF) ([facility]) Sleep apnea, obstructive Severe aortic valve stenosis Diaphragm dysfunction 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 ([facility]) COPD, group B, by GOLD 2017 classification ([facility]) Persistent atrial fibrillation ([facility]) Iron deficiency anemia secondary to inadequate dietary iron intake S/P TAVR (transcatheter aortic valve replacement) Permanent atrial fibrillation ([facility]) SOCIAL HISTORY: Social History Tobacco Use Smoking status: Former Current packs/day: 0.00 Average packs/day: 1.5 packs/day for 24.0 years (36.0 ttl pk-yrs) Types: Cigarettes Start date: 1964 Quit date: 1988 Years since quittin.5 Passive exposure: Past Smokeless tobacco: Never Substance Use Topics Alcohol use: Yes Comment: Vikas hard lemonade every other day Vaping/E-Cigarette Use Vaping/E-Cigarette Use Never User Vaping/E-Cigarette Substances Vaping/E-Cigarette Devices MEDICATIONS: Current Outpatient Medications Medication Sig Dispense Refill Jzthvwzhpxo-Pkvdoeocz-Onb C-Mn (GLUCOSAMINE CHONDR 500 COMPLEX) Capsule Take 1 Capsule by mouth every morning. Newman 3 1000 MG CAPS Take 1 Capsule [...] 1 Tablet by mouth in the morning. NATURAL SUPPLEMENT Take 20 mg by mouth in the morning and 20 mg before bedtime. CBD oil. Potassium Chloride Christina ER 10 MEQ Oral Tablet Extended Release Take 1 Tablet by mouth in the morning. 90 Tablet 3 Spironolactone 25 MG Oral Tablet (Aldactone) Take 1 Tablet by mouth in the morning. 90 Tablet 3 Triamcinolone Acetonide 0.1 % External Cream (Aristocort) Apply to affected area on forearm twice daily for up to two weeks if needed for itching 80 g 5 Fluorouracil 5 % External Cream (Efudex) Apply to site on the right cheek twice daily x 2 weeks 40 g 0 metOLazone 5 MG Oral Tablet (Zaroxolyn) Take [...] before January 19, 2024. 180 Tablet 3 Zolpidem Tartrate ER 6.25 MG Oral Tablet Extended Release Take 1 Tablet by mouth at bedtime as needed. Amoxicillin 500 MG Oral Capsule (Amoxil) Take 4 tablets 1 hour prior to dental procedures. 4 Capsule 5 Torsemide 20 MG Oral Tablet (Demadex) TAKE 2 TABLETS DAILY FIRST THING IN THE MORNING 180 Tablet 3 No current facility-administered medications for this visit. ALLERGIES: Patient has no known allergies. OBJECTIVE: GEN: Healthy, alert, no distress, appears oriented, pleasant, and cooperative. PSYCH: Appropriate mood and affect, alert SKIN: Detailed exam of genitalia was completed and are within normal limits with the following exceptions: 1. Erythematous plaque with areas of ulceration overlying scrotum, lower abdomen, inguinal creases ASSESSMENT/PLAN: 1. Favor cellulitis, less likely tinea vs candidal - bacterial culture obtained for sensitivity - recommend vaseline only until results final Patient alone today. Follow-up: PRN Photos taken, patient consented to photos. Applicable photos (if any) and chart reviewed by Dr. Diego Thompson The patient was encouraged to contact me with any further questions or concerns. Trisha Pulido PA-C 03/11/2024 3:20 PM documented in this encounter Nursing Notes * Aaliyah Rockwell LPN - 03/11/2024 3:22 PM EDT Chief Complaint Patient presents with Rash Rash in groin area for at least 3 weeks - has tried using hydrocortisone, Miconazole, Clobetasol. Only thing that has helped is the Bactine spray. 11/06/2023 (in office), Visit date not found (telemedicine) documented in this encounter Plan of Treatment Upcoming Encounters Date Type Department Care Team (Late st Contact Info) Description 03/15/2024 1:00 PM EDT Office Visit Family Practice [address] [place] [address] Chino Leavitt DO [address] [place] [address] 04/03/2024 7:15 AM EDT Cardiac Studies Cardiac Studies, [facility] [address] [place] [address] 04/17/2024 12:30 PM EDT Office Visit Dermatology [facility] [address] [place] [address] Trisha Pulido PA-C [address] [place] [address] 05/16/2024 12:00 PM EDT Hospital Encounter CRS Waiting [facility], Cardiac Recovery Suite Waiting Unit, [address] [place] [phone] Melo Pena MD [address] [facility] [id number] 05/16/2024 12:00 PM EDT - 05/16/2024 3:00 PM EDT Surgery CRS Waiting [facility], Cardiac Recovery Suite Waiting Unit, [address] [facility] [place] [id number] Melo Pena MD [address] [place] [facility] [place] [address] PERCUTANEOUS CLOSURE LEFT ATRIAL APPENDAGE IMPLANT 05/16/2024 12:00 PM EDT Office Visit Cardiology [facility], [place] [address] [place] [facility] [place] [place] [address] [facility] Cardiac Recovery [facility] [address] [place] [address] 05/28/2024 12:15 PM EDT Office Visit [facility] [address] [facility] [id number] Kalpana Calloway, [address] [facility] [place] [address] 09/05/2024 2:00 PM EST Office Visit Cardiology, [facility] [address] [place] [address] Avni Pruitt PA-C [address] [facility] [address] 11/18/2024 1:00 PM EDT [facility]ostic [facility] [place] [address] [place] [address] [place], [address] [facility] [place] [address] 11/18/2024 1:40 PM EDT Office Visit Pulmonary Medicine Urmila Irving [address] [id number] Wander Gonzalez MD [address] [place] [place] [address] Pending Results Name Type Priority Associated Diagnoses Date /Time CULTURE, WOUND, SUPERFICIAL, AEROBIC Lab Routine Rash and nonspecific skin eruption 03/11/2024 3:58 PM EDT Scheduled Orders Name Type Priority Associated Diagnoses Orde r Schedule CULTURE, WOUND, SUPERFICIAL, AEROBIC Lab Routine Rash and nonspecific skin eruption Expected: 03/11/2024, Expires: 03/11/2025 Scheduled Procedures Name Priority Associated Diagnoses Date/Ti me PERCUTANEOUS CLOSURE LEFT ATRIAL APPENDAGE IMPLANT Permanent atrial fibrillation (HCC) 05/16/2024 12:00 PM EDT Health Maintenance Due Date Last Done Comments Hepatitis C Screening 1968 COVID-19 Vaccine ( season) 2023 08/14/2023, 06/28/2022, 03/30/2022, Additional history exists Influenza Vaccine (FLU shot) (#1) 2024 05/29/2023, 05/26/2022, 05/26/2022, Additional history exists O2 ASSESSMENT COMPLETED IN PAST YEAR FOR COPD 01/15/2025 01/16/2024 Depression Screening 01/18/2025 01/19/2024 DTaP,Tdap,and Td Vaccines (3 - Td or Tdap) 01/23/2033 01/23/2023, 12/18/2012, 01/01/2003 Pneumococcal Vaccine: 65+ Years Completed 12/25/2017, 12/19/2014, 12/19/2013 Zoster Vaccines Completed 07/03/2018, 04/05, 04/14/2009 Colonoscopy Discontinued 11/18/2020 Colorectal Cancer Screening Discontinued Alpha-1 Antitrypsin Completed 06/07/2022 Cologuard Discontinued Fecal Occult Blood Test Discontinued [...] this encounter Medical Devices Implanted Type Area Environmental Services Specialist Device Identifier Shelf Expiration Date Model / Serial / Lot Cath Thermodilution 6fr - [id number] Implanted:Qty: 1 on 11/04/2021 by Kevin Espino DO at [facility] [employer] [id number] 10/13/2023 [id number] / / [id number] Valve Transcath Resilia 29mm - [id number] Implanted:Qty: 1 on 01/16/2024 by Melo Pena MD at [facility] [employer] [id number] 06/19/2025 [id number] / / documented as of this encounter Procedures Procedure Name Priority Date/Time Associated Diagnosis Comments DERM EXAM - DERM (IMAGES ONLY, NO REPORT) Routine 03/11/2024 3:49 PM EDT Rash and nonspecific skin eruption documented in this encounter Results * DERM EXAM - DERM (IMAGES ONLY, NO REPORT) (03/11/2024 3:49 PM EDT) Narrative Scheduling, Silent - 03/11/2024 3:49 PM EDT This is an imaging study not interpreted or resulted by a [employer] or [employer] contracted radiologist. Trisha Pulido PA-C RADIOLOGY ( [facility]) documented in this encounter Visit Diagnoses Diagnosis Permanent atrial fibrillation (HCC)- Primary Atrial fibrillation Rash and nonspecific skin eruption- Primary Rash and other nonspecific skin eruption Permanent atrial fibrillation (HCC) Atrial fibrillation documented in this encounter Advance Directives * [...] verbally by patient or by statute hierarchy) [email or web address] Care Teams [employer] Travel Counselor Relationship Specialty Start Date End Date Chino Leavitt DO PCP - General Internal Medicine 01/23/23 documented as of this encounter
--- OUTSIDE RECORDS SUMMARY | 2024-03-18 19:21 | External Medical Summary ---
Author Name Unknown Address Unknown Organization [id number]:LABORATORY [facility] - [address] [facility] [address] Laboratory Report Ordering Provider Test Date Status DAMARI URBANO 03/15/2024 14:10:23 Final Observation Date Value Abnormality Reference (Units ) Status SYNC LEUKOCYTES IN BLOOD BY AUTOMATED COUNT 03/15/2024 14:10:23 15.88 Above high normal 4.00-10.80 (K/uL) Final Segs 03/15/2024 14:10:23 88.6 Above high normal 40.0-75.0 (%) Final Lymphs % 03/15/2024 14:10:23 1.9 Below low normal 18.0-42.0 (%) Final Monos 03/15/2024 14:10:23 7.4 1.0-11.0 (%) Final Eosinophils 03/15/2024 14:10:23 0.7 0.0-6.0 (%) Final Basos 03/15/2024 14:10:23 0.3 0.0-2.0 (%) Final Immature Granulocyte, Percent 03/15/2024 14:10:23 1.1 0.0-2.0 (%) Final Absolute Segs 03/15/2024 14:10:23 14.08 Above high normal 1.80-7.70 (K/uL) Final Lymphs, absolute 03/15/2024 14:10:23 0.30 Below low normal 1.00-4.80 (K/ul) Final Monos, Abs 03/15/2024 14:10:23 1.17 Above high normal 0.00-1.10 (K/uL) Final Eos, Abs 03/15/2024 14:10:23 0.11 0.00-0.70 (K/uL) Final Basos, Abs 03/15/2024 14:10:23 0.04 0.00-0.20 (K/uL) Final Immature Granulocytes, Number 03/15/2024 14:10:23 0.18 0.00-0.20 (K/uL) Final Performing Location LABORATORY [facility] - [facility] [address] [place] [address]
--- OUTSIDE RECORDS SUMMARY | 2024-03-18 19:21 | External Medical Summary ---
Author Name Unknown Address Unknown Organization K01:[facility]ATORY [facility] - [address] [place] [address] Laboratory Report Ordering Provider Test Date Status MARY ANNE FLOOD 02/13/2024 11:28:47 Final Observation Date Value Abnormality Reference (Units ) Status LDH 02/13/2024 11:28:47 238 <=250 (U/L ) Final Performing Location LAB[facility]ATORY [facility] - [address] [place] [address]
--- OUTSIDE RECORDS SUMMARY | 2024-03-18 19:21 | External Medical Summary | Summary of Care ---
Author Name Unknown Organization [facility] Address [address] [place] [address] Phone [phone] Care Team Providers Care Recreational Therapist Name Role Phone Chino Leavitt DO Primary Care Provider [phone] Reason for Referral * Evaluate & Treat - Unlimited Visits (Within 10 days (routine)) - Authorized Specialty Diagnoses / Procedures Referred By Contact Referred To Contact Cardiac Electrophysiology / Cardiology Diagnoses Severe aortic stenosis S/P TAVR (transcatheter aortic valve replacement) Heart failure with improved ejection fraction (HFimpEF) ([facility]) History of transcatheter aortic valve replacement (TAVR) Adelina Riddle CRNP [address] [place], [place] [address] Referral ID Status Reason Start Date Expiration Date Visits Requested Visits Authorized [id number] Authorized Specialty Services Required 03/04/2024 999 [id number] Question Answer Referral Priority Within 10 days (routine) Where should this appointment be scheduled? [facility] Comments AFIB with slow ventricular response, pauses on Zio * Precert (Within 10 days (routine)) - Authorized Specialty Diagnoses / Procedures Referred By Contac t Referred To Contact Cardiac Studies Diagnoses Severe aortic stenosis S/P TAVR (transcatheter aortic valve replacement) Heart failure with improved ejection fraction (HFimpEF) (HCC) History of transcatheter aortic valve replacement (TAVR) Procedures ECHO, COMPLETE (2D), TRANS-THORACIC Adelina Riddle CRNP [address] [place] [address] Referral ID Status Reason Start Date Expiration Date V isits Requested Visits Authorized [id number] Authorized Precert 03/10/2025 999 999 Reason for Visit * Reason Comments Follow Up 1 month follow. TAVR f/u. SOB has improved some. Only transient vertigo today. Denies chest pain, palpitations, dizziness and edema. Encounter Details Date Type Department Care Team (Latest Contact Info) Description 03/04/2024 3:00 PM EDT Office Visit Cardiology, [facility] [address] [place] [address] Adelina Riddle CRNP [address] [place] [address] Severe aortic stenosis*; S/P TAVR (transcatheter aortic valve replacement); Heart failure with improved ejection fraction (HFimpEF) ([facility]); History of transcatheter aortic valve replacement (TAVR) Allergies No known active allergiesdocumented as of this encounter (statuses as of 03/04/2024) Medications Medication Sig Dispensed Refills Start Date End Date Status Qaaukmctuda-Zalvcjftu-G it C-Mn (GLUCOSAMINE CHONDR 500 COMPLEX) Capsule Take 1 Capsule by mouth every morning. Active Webber 3 1000 MG CAPS Take 1 Capsule [...] 1 Tablet by mouth in the morning. 09/15/19 23 Active Acetaminophen 500 MG Oral Tablet (Tylenol) Take 2 tablets by mouth in the morning and 1 tablet in the evening 08/31/20 21 Active DULoxetine HCl 60 MG Oral Capsule Delayed Release Particles Take 1 Capsule by mouth every evening. Active Iron 325 (65 Fe) MG Oral Tablet Take 1 Tablet by mouth in the morning. 08/14/20 23 Active NATURAL SUPPLEMENT Take 20 mg by mouth in the morning and 20 mg before bedtime. CBD oil. Active Potassium Chloride Christina ER 10 MEQ Oral Tablet Extended ReleaseIndications:Hear t failure with preserved left ventricular function (HFpEF) (HCC) Take 1 Tablet by mouth in the morning. 90 Tablet 3 09/25/19 24 Active Spironolactone 25 MG Oral Tablet (Aldactone)Indications: Heart failure with preserved left ventricular function (HFpEF) (HCC) Take 1 Tablet by mouth in the morning. 90 Tablet 3 09/25/19 24 Active Triamcinolone Acetonide 0.1 % External Cream (Aristocort) Apply to affected area on forearm twice daily for up to two weeks if needed for itching 80 g 5 10/18/19 24 Active Fluorouracil 5 % External Cream (Efudex) Apply to site on the right cheek twice daily x 2 weeks 40 g 10/25/19 24 Active metOLazone 5 MG Oral Tablet (Zaroxolyn)Indications: Centrilobular emphysema (HCC),Pulmonary hypertension (HCC),Diaphragm dysfunction Take 1 Tablet by mouth as needed for Dyspnea. As needed average is about once every 10 days per patient 11/27/19 24 Active Diclofenac Sodium 1 % External Gel (Voltaren) Apply topically to affected area. Apply to right hip and knee Active Atorvastatin Calcium 40 MG Oral Tablet (Lipitor)Indications:Pu re hypercholesterolemia Take 1 Tablet by mouth in the morning. 90 Tablet 12/13/19 24 Active Tamsulosin HCl 0.4 MG Oral Capsule (Flomax) Take 1 Capsule by mouth in the morning. 90 Capsule 01/02/20 24 Active Additional Information Patient taking differently:0.4 mg OralQ-1999, Reported on 01/31/2024 Apixaban 5 MG Oral Tablet (Eliquis) Take 1 Tablet by mouth in the morning and 1 Tablet before bedtime. Do not start before January 19, 2024. 180 Tablet 01/19/20 24 Active Zolpidem Tartrate ER 6.25 MG Oral Tablet Extended Release Take 1 Tablet by mouth at bedtime as needed. 10/12/19 24 Active Amoxicillin 500 MG Oral Capsule (Amoxil)Indications:S/P TAVR (transcatheter aortic valve replacement) Take 4 tablets 1 hour prior to dental procedures. 4 Capsule 5 05/31/20 24 Active Torsemide 20 MG Oral Tablet (Demadex)Indications:Pu lmonary hypertension (HCC) TAKE 2 TABLETS DAILY FIRST THING IN THE MORNING 180 Tablet 3 02/26/20 24 Active Metoprolol Succinate ER 50 MG Oral Tablet Extended Release 24 Hour (Toprol XL)Indications:HFrEF (heart failure with reduced ejection fraction) (HCC),Longstanding persistent atrial fibrillation (HCC) Take 0.5 Tablets by mouth in the morning. 135 Tablet 3 01/18/20 24 024 Discontinued documented as of this encounter (statuses as of 03/04/2024) Active Problems Problem Noted Date Diagnosed Date [...] as of this encounter (statuses as of 03/04/2024) Resolved Problems Problem Noted Date Diagnosed Date Resolved Date COPD with emphysema 05/26/2022 03/03/20 23 Anemia 05/26/2022 04/21/2023 documented as of this encounter (statuses as of 03/04/2024) Immunizations Name Administration Dates Next Due COVID-19 mRNA, LNP-s, No Pre serve, 2-Dose Series (Assignment Editor) 03/30/2022,06/23/2021,10/02/2020,09/11 COVID-19, MRNA-LNP, 23-24, P F, 30 MCG/0.3 mL, 12 YRS AND ABOVE, IM ([place]) 08/14/2023 Covid-19, Mrna, Lnp-s, Pf, B ivalent, [...] No 01/19/2024 Does the household have a [facility] source [facility] income? (Household - for ages [...] Sign Reading Time Taken Comments Blood Pressure 136/82 03/04/2024 3:00 PM EDT Pulse 68 03/04/2024 3:00 PM EDT Temperature - - Respiratory Rate 15 03/04/2024 3:00 PM EDT Oxygen Saturation - - Inhaled Oxygen Concentration - - Weight 122 kg (269 lb) 03/04/2024 3:00 PM EDT Height - - Body Mass Index 39.72 01/23/2024 2:53 PM EDT documented in this encounter Functional [...] No 01/16/2024 documented as of this encounter Patient Instructions * Patient Instructions* Adelina Riddle CRNP - 03/04/2024 3:13 PM EDT Heart rates are very slow and you are having pauses on your monitor. STOP metoprolol succinate I placed a referral for the rhythm doctor to evaluate you for a possible pacemaker. No routine dental work should be completed in the first 6 months after TAVR. However if an acute issue arises, patient is to alert the valve team. Antibiotics are needed for all dental work: Amoxicillin 2g- Take 4 capsules 1 hour prior to any dental work documented in this encounter Progress Notes * Adelina Riddle CRNP - 03/04/2024 3:00 PM EDT Cardiology Valve Clinic Note 03/04/2024 Primary Information Systems Security Analyst: Avni Pruitt PA-C Valve Clinic: 1 month Follow Up post TAVR Problem List: 1.Severe Aortic Stenosis -s/p TAVR # 29mm Quesada Robert S3 Ultra resilia valve 01/16/2024 2.Persistent Atrial Fibrillation on Eliquis -during admission to ICU for urosepsis 2020 3.HFmrEF -EF 40-44% 05/2023 4.Non-Occlusive CAD -mild non obstructive CAD; 20% stenosis distal LMCA with minor irregularities in LAD 11/2021 5.Pulmonary Hypertension 6.CARRI on BiPAP 7.COPD 8.Paralyzed Diaphragm; following severe sepsis (08/2021; urosepsis managed with stent placement andIV abx; was in ICU for 5 days) (Dr. 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 Follows with [facility]: 73-year-old male presenting to the valve clinic today in follow-up after TAVR. Patient carries a history of severe aortic stenosis and underwent a successful transfemoral implantation of a # 29mm Quesada Robert S3 Ultra resilia valve on 01/16/[address] Pena. Last evaluated in the valve Clinic approximately one-month ago. At this time he was feeling well and offered no acute cardiovascular concerns however he was having new onset bleeding with Eliquis and Watchman was discussed. He is scheduled to have a Watchman placed in May with Dr. Pena. Today the patient presents feeling well and offers no acute concerns. 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 No chest pain. Shortness of breath symptoms improving.Denies palpitations. No lightheadedness or dizziness. No orthopnea or PND. No lower extremity edema. Patient did wear a live Zio monitor from 01/18/2024 to 01/25/2024. Overall patient had a 100% AFib burden with an average heart rate of 56 beats per minute. He did have multiple pauses with the longest lasting 4.1 seconds. Bradycardic rates and pauses appear to be during presumed sleep time hours. Today on EKG patient had a resting heart rate in the 70s while obtaining the EKG HR dropped to 45. Patient currently asymptomatic. Echocardiogram scheduled to be completed 04/03/2024. He states he is compliant with all medications and offers no side effects. REVIEW OF SYSTEMS: See HPI for pertinent positives. All others negative other than those noted in the HPI. CONSTITUTIONAL: No change in weight, No weakness, No fatigue and No fevers, No sweats or chills. PULMONARY: No cough, sputum, or hemoptysis, No wheezing, No shortness or breath and No recent change in breathing. CARDIOVASCULAR: No chest pain, No dyspnea on exertion, No edema, No palpitations and No syncope. GASTROINTESTINAL: No abdominal pain, No change in bowel habits, No significant heartburn, No nausea, No vomiting, No diarrhea, No constipation, No blood in stools or black tarry stools. No dysphagia. HEMATOLOGIC: No abnormal bleeding and No bruising. NEUROLOGICAL: Normal balance, No headaches and No weakness. Current Outpatient Medications Medication Sig Dispense Refill Cpfzgxhhhgg-Pwfwnhqva-Lne C-Mn (GLUCOSAMINE CHONDR 500 COMPLEX) Capsule Take 1 Capsule by mouth every morning. Webber 3 1000 MG CAPS Take 1 Capsule [...] mouth in the morning. 90 Tablet 3 Diclofenac Sodium 1 % External Gel (Voltaren) [...] before January 19, 2024. 180 Tablet 3 Triamcinolone Acetonide 0.1 % External [...] about once every 10 days per patient Zolpidem Tartrate ER 6.25 MG Oral Tablet Extended Release Take 1 Tablet by mouth at bedtime as needed. Amoxicillin 500 MG Oral Capsule (Amoxil) Take 4 tablets 1 hour prior to dental procedures. 4 Capsule 5 Torsemide 20 MG Oral Tablet (Demadex) TAKE 2 TABLETS DAILY FIRST THING IN THE MORNING 180 Tablet 3 No current facility-administered medications for this visit. Review of patient's allergies indicates: No Known Allergies Past Medical History: Diagnosis Date Anemia COPD with emphysema ([facility]) Diaphragm dysfunction Heart failure with preserved left ventricular function (HFpEF) ([facility]) Mixed restrictive and obstructive lung disease ([facility]) Non-occlusive coronary artery disease Nonrheumatic aortic valve stenosis Pulmonary arterial hypertension ([facility]) Sleep apnea, obstructive Past Surgical History: Procedure Laterality Date CORONARY ANGIOGRAPHY W/LEFT HEART CATH N/A 11/27/2023 CORONARY ANGIOGRAPHY W/LEFT HEART CATH performed by Melo Pena MD at [facility] CORONARY ANGIOGRAPHY W/RIGHT+LEFT CATH 11/04/2021 CORONARY ANGIOGRAPHY W/RIGHT+LEFT CATH performed by Kevin Espino DO at [facility] INSERT HEART ELECTRODE, SNGL CHAMBR Right 01/16/2024 TEMPORARY PACEMAKER (SINGLE LEAD) performed by Melo Pena MD at [facility] [place] CYSTO W/INSERT URETERAL STENT Left 2021 REPLACE AORTIC VALVE, PERCUTANEOUS FEMORAL N/A 01/16/2024 REPLACE AORTIC VALVE, PERCUTANEOUS FEMORAL performed by Melo Pena MD at [facility] [place] REPLACE AORTIC VALVE, PERCUTANEOUS FEMORAL N/A 01/16/2024 REPLACE AORTIC VALVE, PERCUTANEOUS FEMORAL performed by Eugene Joe MD at [facility] [place] Family History Problem Relation Name Age of Onset Cancer Mother breast Hypertension Mother COPD Father Hypertension Sister Other ( of accidental electricution) Brother Celiac disease Brother Social History Socioeconomic History Marital status: Significant Other Spouse name: Not on file Number of children: Not on file Years of education: Not on file Highest education level: Not on file Occupational History Not on file Tobacco Use Smoking status: Former Current packs/day: 0.00 Average packs/day: 1.5 packs/day for 24.0 years (36.0 ttl pk-yrs) Types: Cigarettes Start date: 1964 Quit date: 1988 Years since quittin.5 Passive exposure: Past Smokeless tobacco: Never Vaping Use Vaping status: Never Used Substance and Sexual Activity Alcohol use: Yes Comment: Master's hard lemonade every other day Drug use: Never Sexual activity: Yes Partners: Female Other Topics Concern Not on file Social History Narrative 1 dogs and 4 cats No mold [facility] air conditioning Social Determinants of Health Financial Resource Strain: Low Risk (01/19/2024) Financial Resource Strain Do you have any trouble paying for your medications, or do you think you might in the future? (Adult - for ages 18 years and over): No Does your family have trouble paying for medicine? (Household - for ages 0-17 years): Not on file Food Insecurity: No Food Insecurity (01/19/2024) Food Insecurity Do you need food for this week? (Adult - for ages 18 years and over): No Are you able to get enough food for your family? (Household - for ages 0-17 years): Not on file Does your family need food this week? (Household - for ages 0-17 years): Not on file Do you always have enough food for your family? (Household - for ages 0-17 years): Not on file Transportation Needs: No Transportation Needs (01/19/2024) Transportation Needs Do you have trouble getting a ride to medical visits or work? (Adult - for ages 18 years and over):Never True Does your family have a hard time getting a ride to doctors visits? (Household - for ages 0-17 years): Not on file Has lack of transportation kept you from medical appointments, meetings, work, or from getting things needed for daily living? Check all that apply. (Adult - for ages 18 years and over): Not on file Do you (or your family) have trouble finding or paying for a ride (transportation)? (Household - for ages 0-17 years): Not on file Social Connections: Socially Integrated (01/19/2024) Social Connections How often do you feel lonely or isolated from those around you? (Adult - for ages 18 years and over): Never Housing Stability: Low Risk (01/19/2024) Housing Stability Do you currently live in a custodial or have no steady place to sleep at night? (Adult - for ages 18 years and over): No Do you think you are at risk of becoming homeless? (Adult - for ages 18 years and over): No Does your family worry about paying for your home or becoming homeless? (Household - for ages 0-17 years): Not on file Are you homeless or worried that you might be in the future? (Adult - for ages 18 years and over): Not on file Are you (or your family) homeless or worried that you might be in the future? (Household - for ages0-17 years): Not on file PHYSICAL EXAM: BP 136/82 | Pulse 68 | Resp 15 | Wt 122 kg (269 lb) | BMI 39.72 kg/m | BSA 2.44 m Wt Readings from Last 3 Encounters: 03/04/24 122 kg (269 lb) 01/31/24 117.5 kg (259 lb 1.6 oz) 01/23/24 116.9 kg (257 lb 11.2 oz) General: No acute distress. A+Ox3. HEENT: Normocephalic. Atraumatic. PERRL. EOMI. Conjunctiva and sclera clear. NECK: No carotid bruits. No JVD. Carotid upstrokes are brisk. Heart: Irregularly irregular. S1 and S2 noted. +1/6 systolic murmur. No rubs or gallops. PMI non displaced. Lungs: Clear to auscultation. No wheezes.No rhonchi. No rales. Abdomen: Normal bowel sounds. Soft. Nontender. No masses or organomegaly. No abdominal bruits. Extremities: No edema. No clubbing or cyanosis. Pulses: radial=2/4, posterior tibial=2/4, dorsalis pedis = 2/4. NEURO: No focal deficits. PSYCH: Appropriate affect and insight. SKIN: b/l groin incisions are open to air, R groin site ecchymotic. No drainage DATA: Labs & Imaging Reviewed Below: POD #1 s/p TAVR 01/17/2024 S/P TAVR (transcatheter aortic valve replacement) [Z95.2 (ICD-10-CM)] The examination is adequate to evaluate the referral indication. The qualitative LV ejection fraction is 55-59% (normal). No LV segmental wall motion abnormalities. The right ventricular systolic function is qualitatively normal. The patient is status post TAVR with Robert type prosthetic valve. Mild paravalvular aortic valve prosthesis regurgitation is present. Aortic valve prosthesis stenosis is absent. Mild mitral regurgitation is present. Ao V2 max: 219.5 cm/sec Ao mean P.9 mmHg KATHRYN(I,D): 1.6 cm2 Intro Op Echocardiogram 01/16/2024 PRE TAVR: The qualitative LV ejection fraction is 50-54% (normal). No LV segmental wall motion abnormalities. The right ventricular systolic function is qualitatively normal. Aortic valve is severely calcified.Deemed as severe from prior studies.Mild aortic regurgitation isseen. POST TAVR: # 29mm Quesada Robert S3 Ultra resilia valve Aortic valve prosthesis stenosis is absent. Mild paravalvular aortic valve prosthesis regurgitation is present. No pericardial effusion is noted. Pre TAVR Cardiac Catheterization 11/27/2023 Distal LMCA 20% stenosis. Similar to prior angiogram * Otherwise angiographically normal coronaries Echo 05/22/2023 Interpretation Summary The rhythm during the transthoracic echo examination was atrial fibrillation with controlled ventriculr response. The left ventricular systolic function is mildly reduced. The qualitative LV ejection fraction is 40-44% (mildly reduced). The LV wall thickness is moderately increased (concentric). The left atrium is severely enlarged (>48 ml/m^2,). The aortic valve is severely calcified. Severe aortic valve stenosis is present. Mild aortic valve regurgitation is present. Severe mitral regurgitation is present. Moderate tricuspid regurgitation is present. The estimated pulmonary artery systolic pressure is 46mm Hg. Compared to study dated September 10, 2021 ([facility] medical record), mild LV systolic dysfunction, severe aortic valve stenosis, severe mitral regurgitation, and mild pulmonary hypertension now present. This study has what is deemed to be a "significant abnormality" consistent with ACT 112. See additional documentation regarding notification of patient and ordering provider. Ao V2 max: 388.1 cm/sec Ao mean P.8 mmHg KATHRYN(I,D): 0.88 cm2 Cardiac Catheterization 11/04/2021 * Mild, non-obstructive CAD with 20% distal LMCA stenosis and luminal irregularities in LAD. Circumflex and dominant RCA are angiographically normal. * Right and left heart catheterization show normal cardiac filling pressures and no evidence of constriction. There is no sign of discordance during simultaneous RV/LV pressure measurements. * There is moderate AV stenosis based on invasive AV assessment: calculated KATHRYN 1.5 cm2, mean PG 35 mmHg * mean RA 5 mmHg * PA 30/9, mean 19 mmHg * mean PCWP 11 mmHg and LVEDP 10 mmHg * PA saturation 62%; Ao Sat 88% * Assumed Kady CO 8 L/min; index 3.4 IMPRESSION/PLAN: 1. Severe aortic stenosis 2. S/P TAVR (transcatheter aortic valve replacement) Doing well post TAVR NYHA class 1 KCCQ-12 Questionnaire: complete No routine dental work should be completed in the first 6 months after TAVR. However if an acute issue arises, patient is to alert the valve team. Antibiotics are needed for all dental work: Amoxicillin 2g- Take 4 capsules 1 hour prior to any dental work Slowly increase activity- Patient activity tolerance better than his prior baseline; declining cardiac rehab. Aspirin 81 mg daily continued indefinitely 1 mos post TAVR Echo scheduled for 04/03/2024- keep appt EKG completed today. No evidence of LBBB or complete heart block, HR 45 bpm in afib. Prior zio showing bradycardic rates in afib and pauses during presumed sleep time hours. STOP metoprolol. Return to [facility] in 1 year with Echocardiogram General Cardiology Return in 6 months. 3. 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 Repeat echocardiograms in January show his EF improved to 55-59% Does not appear hypervolemic on exam. Continue Torsemide, Spironolactone, and Potassium supplements. Consider adding Jardiance to this regimen in the future. Taking Metolazone as needed once every 10 days. 2. CHF education reinforced. 4. Permanent atrial fibrillation (HCC) -Asymptomatic. Discussed that he likely would not receive much benefit from an ablation because he is symptomatic. -Post op TAVR he developed some altered mental status with low heart rates with a 7 sec pause. Zio showing 3-4 second pauses during presumed sleep hours. -Compliant on BiPAP EKG completed today. No evidence of LBBB or complete heart block, HR 45 bpm in AFIB. Prior zio showing bradycardic rates in afib and pauses during presumed sleep time hours. STOP metoprolol. EP referral placed for possible PPM. CHADSVASC 4 (age 1, CHF, CAD) Anticoagulated with Eliquis 5 mg BID; plans for watchman placement 05/16/2024 The patient agrees to the above plan and will call with additional questions or concerns. ER with all emergencies advised. Follow-up: Return in about 6 months (around 09/04/2024). | Check-out note: 1 year valve clinic followup with Becky at , echo same day/prior. EP referral General cards follow up in 6 months. I spent a total of 40 minutes on the date of service in preparation, delivery, and documentation ofthe care provided to Josias De Los Santos excluding any time spent in the performance of separately billed services. BENJAMIN Gutierrez, Department of Cardiology This chart was completed in part utilizing [employer] Speech Voice Recognition Software. Grammatical errors, random word insertions, prounoun errors, and incomplete sentences are an occasional consequence of this system due to software limitations, ambient noise, and hardware issues. Any formal questions or concerns about the content, text, or information contained within the body of this dictation should be directly addressed to the provider for clarification. documented in this encounter Nursing Notes * Tommy Vitale LPN - 03/04/2024 2:59 PM EDT Patient identified by full name and date of Chief Complaint Patient presents with Follow Up 1 month follow. TAVR f/u. SOB has improved some. Only transient vertigo today. Denies chest pain, palpitations, dizziness and edema. Examination Room: 4 Name: Josias De Los Santos Date of : (1950). Reason for Visit: Follow up Interim Hospitalization(s): Denies Problems/Concerns: See chief complaint Chest Pain/SOB: See chief complaint [facility] Discussed: Not applicable [facility] is a way you can talk to your provider online through e-mail. Would you like to sign up? I can activate it for you? ALREADY ACTIVE Patient was instructed to not get up on the exam table until directed and assisted by their provider; patient is to remain seated in the chair/ wheelchair/ exam table for fall prevention and safety reasons. Patient is aware to have assistance to step down off exam table with personnel. Patient voiced full comprehension of instructions. documented in this encounter Plan of Treatment Upcoming Encounters Date Type Department Care Team (Late st Contact Info) Description 03/15/2024 1:00 PM EDT Office Visit Family Practice [facility], [place] [address] [place] [address] Chino Leavitt, 293 [place] [address] 04/03/2024 7:15 AM EDT Cardiac Studies Cardiac Studies, [facility] 132 [facility] [place] [address] 04/17/2024 12:30 PM EDT Office Visit Dermatology [facility] [place] [address] [place] [address] Trisha Pulido PA-C [address] [place] [address] 05/16/2024 12:00 PM EDT Hospital Encounter CRS Waiting [facility], Cardiac Recovery Suite Waiting Unit, [address] [place] [address] Melo Pena MD [address] [place] [address] 05/16/2024 12:00 PM EDT - 05/16/2024 3:00 PM EDT Surgery CRS Waiting [facility], Cardiac Recovery Suite Waiting Unit, H [address] [facility] [address] Melo Pena MD [address] [place] [address] PERCUTANEOUS CLOSURE LEFT ATRIAL APPENDAGE IMPLANT 05/16/2024 12:00 PM EDT Office Visit [facility] [place] [address] [place] [facility] [place] [address] [place], Cardiac Recovery [facility] [address] [facility] [place] [address] 05/28/2024 12:15 PM EDT Office Visit Cardiology, [facility] [address] [facility] [place] [address] Kalpana Calloway, DO 400 [facility] [place] [id number] 09/05/2024 2:00 PM EST Office Visit Cardiology, [facility] [address] [facility] [place] [address] Avni rPuitt PA-C 132 [facility] [address] 11/18/2024 1:00 PM EDT PulmDiagnostic Pulmonary Function Lab Urmila Irving [address] [place] [address] [place], Pft 132 [facility] [place] [address] 11/18/2024 1:40 PM EDT Office Visit Pulmonary Medicine Urmila Irving [address] [place] [phone] Wander Gonzalez MD [address] [place] [address] Scheduled Orders Name Type Priority Associated Diagnoses Orde r Schedule ECHO, COMPLETE (2D), TRANS-THORACIC Echocardiology Routine Severe aortic stenosis S/P TAVR (transcatheter aortic valve replacement) Heart failure with improved ejection fraction (HFimpEF) (HCC) History of transcatheter aortic valve replacement (TAVR) Expected: 03/10/2025 (Approximate), Expires: 04/04/2026 Scheduled Procedures Name Priority Associated Diagnoses Date/Ti me PERCUTANEOUS CLOSURE LEFT ATRIAL APPENDAGE IMPLANT Permanent atrial fibrillation (HCC) 05/16/2024 12:00 PM EDT Scheduled Referrals Name Type Priority Associated Diagnoses Orde r Schedule ELECTROPHYSIOLOGY REFERRAL OP Referral Within 10 days (routine) Severe aortic stenosis S/P TAVR (transcatheter aortic valve replacement) Heart failure with improved ejection fraction (HFimpEF) (HCC) History of transcatheter aortic valve replacement (TAVR) Ordered: 03/04/2024 Health Maintenance Due Date Last Done Comments Hepatitis C Screening 1968 COVID-19 Vaccine (2022- season) 2023 08/14/2023, 06/28/2022, 03/30/2022, Additional history [...] Cologuard Discontinued Fecal Occult Blood Test Discontinued GARDASIL-HPV IMMUNIZATION SERIES Aged Out No longer eligible based on patient's age to complete this topic Hepatitis B Aged Out No longer eligi ble based on patient's age to complete this topic MENINGOCOCCAL (MENACTRA/MENVEO) Aged Out No longer eligible based on patient's age to complete this topic Sigmoidoscopy Discontinued documented as of this encounter Medical Devices Implanted Type Area Patch Finisher Device Identifier Shelf Expiration Date Model / Serial / Lot Cath Thermodilution 6fr - [id number] Implanted:Qty: 1 on 11/04/2021 by Kevin Espino DO at [facility] [employer] [id number] 10/13/2023 [id number] / / [id number] Valve Transcath Resilia 29mm - [id number] Implanted:Qty: 1 on 01/16/2024 by Melo Pena MD at [facility] [employer] [id number] 06/19/2025 [id number] / / documented as of this encounter Visit Diagnoses Diagnosis Permanent atrial fibrillation (HCC)- Primary Atrial fibrillation Severe aortic stenosis- Primary Aortic valve disorders S/P TAVR (transcatheter aortic valve replacement) Heart valve replaced by other means Heart failure with improved ejection fraction (HFimpEF) (HCC) History of transcatheter aortic valve replacement (TAVR) Permanent atrial fibrillation (HCC) Atrial fibrillation documented [...] verbally by patient or by statute hierarchy) [email or web address] Care Teams Recreational Therapist Relationship Specialty Start Date End Date Chino Leavitt DO PCP - General Internal Medicine 01/23/23 documented as of this encounter
--- OUTSIDE RECORDS SUMMARY | 2024-03-18 19:21 | External Medical Summary | Summary of Care ---
Author Name Unknown Organization [facility] Address [address] [facility] [address] Phone [phone] Care Team Providers Care Newspaper Library Manager Name Role Phone Chino Leavitt DO Primary Care Provider [phone] Reason for Visit * Reason Comments eRx-Medication Refill Encounter Details Date Type Department Care Team (Late st Contact Info) Description 02/26/2024 Refill Pulmonary Medicine U[place]ila Irving [address] [place] [address] Polo Spencer PA-C 400 [place] [address] Pulmonary hypertension (HCC) Allergies No known active allergiesdocumented as of this encounter (statuses as of 02/26/2024) Medications Medication Sig Dispensed Refills Start Date End Date Status Gfpnvrzmebi-Fceqynuxl-P it C-Mn (GLUCOSAMINE CHONDR 500 COMPLEX) Capsule Take 1 Capsule by mouth every morning. Active [place] 3 1000 MG CAPS Take 1 Capsule [...] Tablet by mouth in the morning. 09/15/19 Active Acetaminophen 500 MG Oral Tablet (Tylenol) Take 2 tablets by mouth in the morning and 1 tablet in the evening 08/31/20 Active DULoxetine HCl 60 MG Oral Capsule [...] failure with preserved left ventricular function (HFpEF) ([facility]) Take 1 Tablet by mouth in the morning. 90 Tablet 3 09/25/19 24 Active Spironolactone 25 MG Oral Tablet (Aldactone)Indications: Heart failure with preserved left ventricular function (HFpEF) ([facility]) Take 1 Tablet by mouth in the [...] mouth in the morning. 90 Tablet 3 12/13/19 24 Active Tamsulosin HCl 0.4 MG Oral Capsule (Flomax) Take 1 Capsule by mouth in the morning. 90 Capsule 3 01/02/20 24 Active Additional Information Patient taking differently:0.4 mg OralQ-1999, Reported on 01/31/2024 Metoprolol Succinate ER 50 MG Oral Tablet Extended Release 24 Hour (Toprol XL)Indications:HFrEF (heart failure with reduced ejection fraction) ([facility]),Longstanding persistent atrial fibrillation (HCC) Take 0.5 Tablets by mouth in the morning. 135 Tablet 3 01/18/20 24 Active Apixaban 5 MG Oral Tablet (Eliquis) Take 1 Tablet by mouth in the morning and 1 Tablet before bedtime. Do not start before January 19, 2024. 180 Tablet 3 01/19/20 24 Active Zolpidem Tartrate ER 6.25 MG Oral Tablet Extended Release Take 1 Tablet by mouth at bedtime as needed. 10/12/19 24 Active Amoxicillin 500 MG Oral Capsule (Amoxil)Indications:S/P TAVR (transcatheter aortic valve replacement) Take 4 tablets 1 hour prior to dental procedures. 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 (Household - for ages [...] No 01/16/2024 documented as of this encounter Miscellaneous Notes * Telephone Encounter - Polo Spencer PA-C - 02/26/2024 4:12 PM EDTSigned Prescriptions: Disp Refills Torsemide 20 MG Oral Tablet (Demadex) 180 Ta*3 Sig: TAKE 2 TABLETS DAILY FIRST THING IN THE MORNING Authorizing Provider: POLO SPENCER * Telephone Encounter - Martine Jorgensen LPN - 02/26/2024 8:34 AM EDTPending Prescriptions: Disp Refills Torsemide 20 MG Oral Tablet [Pharmacy Med *180 Ta*3 Sig: TAKE 2 TABLETS DAILY FIRST THING IN THE MORNING * Telephone Encounter - Martine Jorgensen LPN - 02/26/2024 8:33 AM EDT Did you pend patient's preferred pharmacy and medication before forwarding?yes Pharmacy: [facility]- [place] Pending Prescriptions: Disp Refills Torsemide 20 MG Oral Tablet (Demadex) [Ph*180 Ta*3 Sig: TAKE 2 TABLETS DAILY FIRST THING IN THE MORNING Last Visit: 10/30/2023 (in office), Visit date not found (telemedicine) Next Visit: 11/18/2024 If no future appointments scheduled, and last appointment is greater than a year ago, please schedule patient for a follow-up appointment Last date the medication was ordered: 04/08/23 Is this request for a controlled substance?No Urine Drug Screen:No results found for this or any previous visit. Patient Phone Numbers Labs: Lab Results Component Value Date/Time CREAT 1.2 02/13/2024 11:28 AM CREAT 1.38 08/08/2023 12:00 AM POTASSIUM 4.3 02/13/2024 11:28 AM POTASSIUM 3.1 (A) 08/08/2023 12:00 AM LDLCALC 34 08/14/2023 04:16 PM ALT 49 02/13/2024 11:28 AM documented in this encounter Plan of Treatment Upcoming Encounters Date Type Department Care Team (Late st Contact Info) Description 03/04/2024 2:30 PM EDT [facility] [address] [place] [phone] Андрей Ozuna [address] [place] [address] 03/04/2024 3:00 PM EDT [facility] [address] [place] [address] Adelina Riddle CRNP 132 [place] [address] 03/15/2024 1:00 PM EDT Office Visit [address] 293 [place] [address] Chino Leavitt, 293 [place] [address] 04/03/2024 7:15 AM EDT Cardiac Studies Cardiac Studies, [facility] 132 [place] [address] 04/17/2024 12:30 PM EDT Office Visit Dermatology [facility] [place] [address] [place] [address] Trisha Pulido PA-C [address] [place] [address] 05/16/2024 12:00 PM EDT Hospital Encounter CRS Waiting [facility], Cardiac Recovery Suite Waiting Unit, H [address] [place] [address] Melo Pena MD [address] [place] [address] 05/16/2024 12:00 PM EDT - 05/16/2024 3:00 PM EDT Surgery CRS Waiting [facility], Cardiac Recovery Suite Waiting Unit, H [address] [facility] [place] [address] Melo Pena MD [address] [place] [address] PERCUTANEOUS CLOSURE LEFT ATRIAL APPENDAGE IMPLANT 05/16/2024 12:00 PM EDT Office Visit Cardiology [facility] [address] [facility] [place] [address] [place], Cardiac Recovery [facility] [address] [facility] [place] [place] [address] 11/18/2024 1:00 PM EDT PulmDiagnostic Pulmonary Function Lab Urmila Irving [address] [place] [address] [address] [place], [address] [address] 11/18/2024 1:40 PM EDT Office Visit Pulmonary Medicine Urmila Irving [address] [place] [phone] Wander Gonzalez MD [address] [place] [address] Scheduled Procedures Name Priority Associated Diagnoses Date/Ti me PERCUTANEOUS CLOSURE LEFT ATRIAL APPENDAGE IMPLANT Permanent atrial fibrillation (HCC) 05/16/2024 12:00 PM EDT Health Maintenance Due Date Last Done Comments Hepatitis C Screening 1968 COVID-19 Vaccine ( season) 2023 08/14/2023, 06/28/2022, 03/30/2022, Additional history exists O2 ASSESSMENT COMPLETED IN PAST YEAR FOR COPD 01/15/2025 01/16/2024 Depression Screening 01/18/2025 01/19/2024 DTaP,Tdap,and Td Vaccines (3 - Td or Tdap) 01/23/2033 01/23/2023, 12/18/2012, 01/01/2003 Pneumococcal Vaccine: 65+ Years Completed 12/25/2017, 12/19/2014, 12/19/2013 Zoster Vaccines Completed 07/03/2018, 04/05, 04/14/2009 Colonoscopy Discontinued 11/18/2020 Colorectal Cancer Screening Discontinued Alpha-1 Antitrypsin Completed 06/07/2022 Influenza Vaccine (FLU shot) Completed 05/29/2023, 05/26/2022, 05/26/2022, Additional history exists Cologuard Discontinued Fecal Occult [...] this encounter Medical Devices Implanted Type Area Diabetes Trainer Device Identifier Shelf Expiration Date Model / Serial / Lot Cath Thermodilution 6fr - [id number] Implanted:Qty: 1 on 11/04/2021 by Kevin Espino DO at [facility] [employer] [id number] 10/13/2023 [id number] / / [id number] Valve Transcath Resilia 29mm - [id number] Implanted:Qty: 1 on 01/16/2024 by Melo Pena MD at [facility] [employer] [place] [employer] [id number] 06/19/2025 [id number] / / documented as of this encounter Visit Diagnoses Diagnosis Permanent atrial fibrillation (HCC)- Primary Atrial fibrillation Pulmonary hypertension (HCC) Other chronic pulmonary heart diseases Permanent atrial fibrillation (HCC) Atrial fibrillation documented [...] verbally by patient or by statute hierarchy) Care Teams Newspaper Library Manager Relationship Specialty Start Date End Date Chino Leavitt DO PCP - General Internal Medicine 01/23/23 documented as of this encounter
--- OUTSIDE RECORDS SUMMARY | 2024-03-18 19:21 | External Medical Summary | Summary of Care ---
Author Name Unknown Organization [facility] Address [address] [facility] [place] [address] Phone [phone] Care Team Providers Care Hospital Carrier Name Role Phone Chino Leavitt DO Primary Care Provider [phone] Encounter Details Date Type Department Care Team (Latest Contact Info) Description 03/11/2024 3:49 PM EDT - 03/11/2024 11:59 PM EDT Hospital Encounter Radiology Film File [address] [place] [address] Arrived Discharge Disposition: Home - Self Care Allergies No known active allergiesdocumented as of this encounter (statuses as of 03/12/2024) Medications Medication Sig Dispensed Refills Start Date End Date Status Dinkfnxqwmo-Nkccxtgcp-Oxw C-Mn (GLUCOSAMINE CHONDR 500 COMPLEX) Capsule Take 1 Capsule by mouth every morning. Active [place] 3 1000 MG CAPS Take 1 Capsule [...] mRNA, LNP-s, No Pre serve, 2-Dose Series ([employer]) 03/30/2022,06/23/2021,10/02/2020,09/11 COVID-19, MRNA-LNP, 23-24, P F, 30 MCG/0.3 mL, 12 YRS AND ABOVE, IM (PFIZER-Comirnaty) 08/14/2023 Covid-19, Mrna, Lnp-s, Pf, B ivalent, [...] No 01/19/2024 Does the household have a [facility] source of income? (Household - for [...] No 01/16/2024 documented as of this encounter Plan of Treatment Upcoming Encounters Date Type Department Care Team (Late st Contact Info) Description 03/15/2024 1:00 PM EDT Office Visit Family Practice [address], [place] 293 [place] [address] Chino Leavitt, 293 [place] [address] 04/03/2024 7:15 AM EDT Cardiac Studies Cardiac Studies, [facility] [address] [facility] [place] [address] 04/17/2024 12:30 PM EDT Office Visit Dermatology [facility] [address] [place] [address] Trisha Pulido PA-C [address] [place] [address] 05/16/2024 12:00 PM EDT Hospital Encounter CRS Waiting [facility], Cardiac Recovery Suite Waiting Unit, H [address] [place] [phone] Melo Pena MD [address] [place], [place] [address] 05/16/2024 12:00 PM EDT - 05/16/2024 3:00 PM EDT Surgery CRS Waiting [facility], Cardiac Recovery Suite Waiting Unit, H [address] [facility] [place] [place] [phone] Melo Pena MD [address] [place] [address] PERCUTANEOUS CLOSURE LEFT ATRIAL APPENDAGE IMPLANT 05/16/2024 12:00 PM EDT Office [facility] [address] [place], [place] [id number] [place], Cardiac Recovery [place] [address] [facility] [place] [address] 05/28/2024 12:15 PM EDT Office Visit Cardiology, [facility] [address] [facility] [address] [place] Kalpana Fischer, DO 400 [facility] [place] [address] 09/05/2024 2:00 PM EST Office Visit Cardiology, [facility] [address] [facility] [address] Avni Pruitt PA-C 132 [facility] [place] [address] 11/18/2024 1:00 PM EDT PulmDiagnostic Pulmonary Function Lab [facility] [address] [facility] [place] [address] [place], [place] [address] [facility] [address] 11/18/2024 1:40 PM EDT Office Visit Pulmonary Medicine [facility] [address] [place] [place] [phone] Wander Gonzalez MD [address] [facility] [place] [address] Scheduled Procedures Name Priority Associated Diagnoses Date/Ti [...] this encounter Medical Devices Implanted Type Area Political Analyst Device Identifier Shelf Expiration Date Model / Serial / Lot Cath Thermodilution 6fr - [id number] Implanted:Qty: 1 on 11/04/2021 by Kevin Espino DO at [facility] [employer] [id number] 10/13/2023 [id number] / / [id number] Valve Transcath Resilia 29mm - [id number] Implanted:Qty: 1 on 01/16/2024 by Melo Pena MD at [facility] [employer] [id number] 06/19/2025 [id number] / / documented as of this encounter [...] study not interpreted or resulted by a [facility] or Oration contracted radiologist. Trisha Pulido PA-C RADIOLOGY ( [facility]) documented in this encounter Advance Directives * [...] patient or by statute hierarchy) Care Teams Hospital Carrier Relationship Specialty Start Date End Date Chino Leavitt DO PCP - General Internal Medicine 01/23/23 documented as of this encounter
--- OUTSIDE RECORDS SUMMARY | 2024-03-18 19:21 | External Medical Summary ---
Author Name Unknown Address Unknown Organization K01:[facility] - [address] [place] [address] Laboratory Report Ordering Provider Test Date Status DAMARI URBANO 03/15/2024 14:10:23 Final Observation Date Value Abnormality Reference (Units ) Status Hep C Ab 03/15/2024 14:10:23 Negative Negative Final Further HCV quantitative letha ting not performed per protocol. Performing Location [facility] - [address] [address]
--- OUTSIDE RECORDS SUMMARY | 2024-03-18 19:21 | External Medical Summary ---
Author Name Unknown Address Unknown Organization K01:[facility] [place] [address] [place] [address] Laboratory Report Ordering Provider Test Date Status DAMARI URBANO 03/15/2024 14:10:23 Final Observation Date Value Abnormality Reference (Units ) Status WBC, Total 03/15/2024 14:10:23 15.88 Above high normal 4.00-10.80 (K/uL) Final RBC 03/15/2024 14:10:23 4.67 4.50-5.25 (M/uL) Final Hemoglobin 03/15/2024 14:10:23 14.5 14.0-16.8 (g/dL) Final HCT 03/15/2024 14:10:23 45.6 40.0-48.4 (%) Final MCV 03/15/2024 14:10:23 97.6 82.0-99.5 (fL) Final MCH 03/15/2024 14:10:23 31.0 27.0-34.0 (pg) Final MCHC 03/15/2024 14:10:23 31.8 32.0-36.0 (g/dL) Final RDW 03/15/2024 14:10:23 14.4 11.5-15.5 (%) Final Platelets 03/15/2024 14:10:23 166 140-400 (K/uL) Final MPV 03/15/2024 14:10:23 10.9 6.6-11.1 (fL) Final Nucleated erythrocytes/100 leukocytes [Ratio] in Blood by Automated count 03/15/2024 14:10:23 0 <=0 (/100 WBCs) Final Performing Location [facility] - [address] [place] [address]
--- OUTSIDE RECORDS SUMMARY | 2024-03-18 19:21 | External Medical Summary | Summary of Care ---
Author Name Unknown Organization [facility] Address [address] [place] [address] Phone [phone] Care Team Providers Care Clearance Diver Name Role Phone Chino Leavitt DO Primary Care Provider [phone] Encounter Details Date Type Department Care Team (Late st Contact Info) Description 02/16/2024 10:15 AM EDT Scheduled Telephone Care Coordination and Integration [address] [place], [place] [phone] Sena Agrawal, [facility] Health Soils Engineer [address], [place] [phone] Allergies No known active allergiesdocumented as of this encounter (statuses as of 02/16/2024) Medications Medication Sig Dispensed Refills Start Date End Date Status Worehghrlrm-Nvmchuxur-Nxt C-Mn (GLUCOSAMINE CHONDR 500 COMPLEX) Capsule Take 1 Capsule by mouth every morning. Active [place] 3 1000 MG CAPS Take 1 Capsule [...] 1 Capsule by mouth every evening. Active Torsemide 20 MG Oral Tablet (Demadex)Indications:Pulm onary hypertension (HCC) TAKE 2 TABLETS DAILY FIRST THING IN THE MORNING 180 Tablet 3 3 Active Iron 325 (65 Fe) MG Oral Tablet Take 1 Tablet by mouth in the morning. 3 Active NATURAL SUPPLEMENT Take 20 mg by mouth in the morning and 20 mg before bedtime. CBD oil. Active Potassium Chloride [facility] 10 MEQ Oral Tablet Extended ReleaseIndications:Heart failure with preserved left ventricular function (HFpEF) ([facility]) Take 1 Tablet by mouth in the morning. 90 Tablet 3 4 Active Spironolactone 25 MG Oral Tablet (Aldactone)Indications:He art failure with preserved left ventricular function (HFpEF) ([facility]) Take 1 Tablet by mouth in the [...] XL)Indications:HFrEF (heart failure with reduced ejection fraction) ([facility]),Longstanding persistent atrial fibrillation (HCC) Take 0.5 Tablets by mouth in the morning. 135 Tablet 3 4 Active Apixaban 5 MG Oral Tablet (Eliquis) [...] dental procedures. 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 Never true 01/19/2024 Sex and Gender Information Value Date [...] as of this encounter Progress Notes * Sena Agrawal Community Health Soils Engineer - 02/16/2024 9:40 AM EDT Telemedicine visit: No Community Health Soils Engineer (DORINA) documentation: CHW f/u call week 4 per Jolly Perez RNCM [facility]; LVM documented in this encounter Plan of Treatment Upcoming Encounters Date Type Department Care Team (Late st Contact Info) Description 03/04/2024 2:30 PM EDT Laboratory [facility], [facility] [place] [phone] Андрей Ozuna 132 [facility] [place] [address] 03/04/2024 3:00 PM EDT Office Visit Cardiology, [facility] 132 [place] [address] Adelina Riddle CRNP 132 [place] [address] 03/15/2024 1:00 PM EDT Office Visit Family Practice [address] [place] [address], [place] 293 [place] [address] Chino Leavitt DO 293 [place] [address] 04/03/2024 7:15 AM EDT Cardiac Studies Cardiac Studies, [facility] 132 [facility] [place] [address] 04/17/2024 12:30 PM EDT Office Visit Dermatology [facility] [address] [place] [address] Trisha Pulido PA-C [address] [place] [address] 05/16/2024 12:00 PM EDT Hospital Encounter CRS Waiting [facility], Cardiac Recovery Suite Waiting Unit, H [address] [place] [address] Melo Pena MD [address] [place] [address] 05/16/2024 12:00 PM EDT - 05/16/2024 3:00 PM EDT Surgery CRS Waiting [facility], Cardiac Recovery Suite Waiting Unit, H [address] [place] [address] Melo Pena MD [address] [place] [address] PERCUTANEOUS CLOSURE LEFT ATRIAL APPENDAGE IMPLANT 05/16/2024 12:00 PM EDT Office Visit Cardiology [facility] [address] [place] [address] [place], Cardiac Recovery Anand [address] [facility] [place] [address] 11/18/2024 1:00 PM EDT PulmDiagnostic Pulmonary Function Lab Bruce [place] [address] [facility] [place] [address] West, Pft [address] [place] [address] 11/18/2024 1:40 PM EDT Office Visit Pulmonary Medicine Bruce denise [place] [address] [facility] [place] [phone] Wander Gonzalez MD [address] [facility] [place] [address] Scheduled Procedures Name Priority Associated Diagnoses Date/Ti [...] this encounter Medical Devices Implanted Type Area Aws Developer Device Identifier Shelf Expiration Date Model / Serial / Lot Cath Thermodilution 6fr - [id number] Implanted:Qty: 1 on 11/04/2021 by Kevin Espino DO at [facility] [employer] [id number] 10/13/2023 [id number] / / [id number] Valve Transcath Resilia 29mm - [id number] Implanted:Qty: 1 on 01/16/2024 by Melo Pena MD at [facility] [employer] [id number] 06/19/2025 [id number] / / documented as of this encounter Advance Directives * Full Code [...] patient or by statute hierarchy) Care Teams Clearance Diver Relationship Specialty Start Date End Date Chino Leavitt DO PCP - General Internal Medicine 01/23/23 documented as of this encounter
--- OUTSIDE RECORDS SUMMARY | 2024-03-18 19:21 | External Medical Summary | Summary of Care ---
Author Name Unknown Organization [facility] Address [address] [facility] [address] Phone [phone] Care Team Providers Care Furnace Room Supervisor Name Role Phone Chino Leavitt DO Primary Care Provider [phone] Reason for Visit * Reason Onset Date Comments Test Results 03/06/2024 Encounter Details Date Type Department Care Team (Late st Contact Info) Description 03/06/2024 Telephone Cardiology, [facility] [address] [facility] [place] [address] Adelina Riddle CRNP [address] [facility] [place] [address] Test Results Allergies No known active allergiesdocumented as of this encounter (statuses as of 03/06/2024) Medications Medication Sig Dispensed Refills Start Date End Date Status Tgmhtezirvj-Kfpkwtowv-Brt C-Mn (GLUCOSAMINE CHONDR 500 COMPLEX) Capsule Take 1 Capsule by mouth every morning. 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 03/03/20 23 Anemia 05/26/2022 04/21/2023 documented as of this encounter (statuses as of 03/06/2024) Immunizations Name Administration Dates Next Due COVID-19 mRNA, LNP-s, No Pre serve, 2-Dose Series (iConclude) 03/30/2022,06/23/2021,10/02/2020,09/11 COVID-19, MRNA-LNP, 23-24, P F, 30 MCG/0.3 mL, 12 YRS AND ABOVE, IM ([facility]) 08/14/2023 Covid-19, Mrna, Lnp-s, Pf, B ivalent, 30 Mcg, IM, 12 yrs and above (iConclude) 06/28/2022 Influenza, Whole Virus 07/12/1999 Pneumococcal Conjugate [...] encounter Miscellaneous Notes * Telephone Encounter - Bhumika Diop CMA - 03/06/2024 9:52 AM EDT My g sent * Telephone Encounter - Bhumika Diop CMA - 03/06/2024 9:51 AM EDT ----- Message from Adelina Riddle sent at 03/05/2024 7:05 AM EDT ----- Blood work stable. BUN mildly elevated. Recommend good hydration. documented in this encounter Plan of Treatment Upcoming Encounters Date Type Department Care Team (Late st Contact Info) Description 03/15/2024 1:00 PM EDT Office Visit Family Practice 65 [facility] 293 [place] [address] Chino Leavitt, 293 [place] [address] 04/03/2024 7:15 AM EDT Cardiac Studies Cardiac Studies, [facility] 132 [facility] [place] [address] 04/17/2024 12:30 PM EDT Office Visit Dermatology [facility] [place] 3[address] [facility] [place] [address] Trisha Pulido PA-C 5[address] [facility] [place] [address] 05/16/2024 12:00 PM EDT Hospital Encounter CRS Waiting [facility], Cardiac Recovery Suite Waiting Unit, H [address] [place] [facility] [place] [address] Melo Pena MD [address] [place] [address] 05/16/2024 12:00 PM EDT - 05/16/2024 3:00 PM EDT Surgery CRS Waiting [facility], Cardiac Recovery Suite Waiting Unit, H [address] [place] [facility] [place] [address] Melo Pena MD [address] [place] [address] PERCUTANEOUS CLOSURE LEFT ATRIAL APPENDAGE IMPLANT 05/16/2024 12:00 PM EDT Office Visit Cardiology [facility] [address] [place] [address] [facility] [address] [place] [address] 05/28/2024 12:15 PM EDT Office Visit Cardiology, [facility] 132 [facility] [place] [address] Kalpana Calloway, DO 400 [facility] [place] [address] 09/05/2024 2:00 PM EST Office Visit Cardiology, [facility] [address] [place] [address] Avni Pruitt PA-C [address] [place] [address] 11/18/2024 1:00 PM EDT PulmDiagnostic Pulmonary Function Lab [place] [address] [address] [facility] [place] [address] West, Pft [address] [place] [address] 11/18/2024 1:40 PM EDT Office Visit Pulmonary Medicine Urmila Irving [address] [place] [address] Wander Gonzalez MD [address] [place] [address] Scheduled Procedures Name Priority Associated Diagnoses Date/Ti [...] this encounter Medical Devices Implanted Type Area Metal Spinner Device Identifier Shelf Expiration Date Model / Serial / Lot Cath Thermodilution 6fr - [id number] Implanted:Qty: 1 on 11/04/2021 by Kevin Espino DO at [facility] [employer] [id number] 10/13/2023 [id number] / / [id number] Valve Transcath Resilia 29mm - [id number] Implanted:Qty: 1 on 01/16/2024 by Melo Pena MD at [facility] [employer] [id number] 06/19/2025 [id number] / / documented as of this encounter [...] verbally by patient or by statute hierarchy) [email or web address] Care Teams Furnace Room Supervisor Relationship Specialty Start Date End Date Chino Leavitt DO PCP - General Internal Medicine 01/23/23 documented as of this encounter
--- OUTSIDE RECORDS SUMMARY | 2024-03-18 19:21 | External Medical Summary | Summary of Care ---
Author Name Unknown Organization [facility] Address [address] [facility] [address] Phone [phone] Care Team Providers Care Fence Installer Name Role Phone Chino Leavitt DO Primary Care Provider [phone] Reason for Visit * Reason Onset Date Comments Appointment 03/04/2024 Encounter Details Date Type Department Care Team (Late st Contact Info) Description 03/04/2024 Telephone Cardiology, [facility] [address] [place] [id number] Adelina Riddle CRNP [address] [place] [address] Appointment Allergies No known active allergiesdocumented as of this encounter (statuses as of 03/04/2024) Medications Medication Sig Dispensed Refills Start Date End Date Status Cysirsosizq-Yebmufgud-Vmc C-Mn (GLUCOSAMINE CHONDR 500 COMPLEX) Capsule Take 1 Capsule by mouth every morning. Active [place] 3 1000 MG CAPS Take 1 Capsule [...] failure with preserved left ventricular function (HFpEF) ([facility]) Take 1 Tablet by mouth in the morning. 90 Tablet 3 4 Active Spironolactone 25 MG Oral Tablet (Aldactone)Indications:He art failure with preserved left ventricular function (HFpEF) ([facility]) Take 1 Tablet by mouth in the [...] XL)Indications:HFrEF (heart failure with reduced ejection fraction) ([facility]),Longstanding persistent atrial fibrillation (HCC) Take 0.5 Tablets [...] mRNA, LNP-s, No Pre serve, 2-Dose Series (TriOviz) 03/30/2022,06/23/2021,10/02/2020,09/11 COVID-19, MRNA-LNP, 23-24, P F, 30 MCG/0.3 mL, 12 YRS AND ABOVE, IM ([facility]) 08/14/2023 Covid-19, Mrna, Lnp-s, Pf, B ivalent, [...] Smoking Tobacco: Former Cigarettes 1.5 24 1 5 - 1988 Passive Smoke Exposure: Past Smokeless [...] encounter Miscellaneous Notes * Telephone Encounter - Tommy Vitale LPN - 03/04/2024 10:32 AM EDT Called patient and sent a [employer] message to see if patient would like to come at 12:30 pm to be seen. Appointment is to stay on the schedule at [address] Awaiting reply to confirm. documented in this encounter Plan of Treatment Upcoming Encounters Date Type Department Care Team (Late st Contact Info) Description 03/04/2024 2:30 PM EDT Laboratory Laboratory, [facility] 132 [facility] [address] [facility] [address] [facility] 132 [facility] [place] [address] 03/04/2024 3:00 PM EDT Office Visit Cardiology, [facility] [address] [place] [address] Adelina Riddle CRNP [address] [place] [address] 03/15/2024 1:00 PM EDT Office Visit Family Practice [address] [place] [address] 293 [facility], [place] [address] Chino Leavitt, DO 293 [place] [address] 04/03/2024 7:15 AM EDT Cardiac Studies Cardiac Studies, [facility] 132 [facility] [place] [address] 04/17/2024 12:30 PM EDT Office Visit Dermatology [facility] [place] [address] [place] [address] Tirsha Pulido PA-C [address] [place] [address] 05/16/2024 12:00 PM EDT Hospital Encounter CRS Waiting [facility], Cardiac Recovery Suite Waiting Unit, H [address] [place] [address] Melo Pena MD [address] [place], [place] [address] 05/16/2024 12:00 PM EDT - 05/16/2024 3:00 PM EDT Surgery CRS Waiting [facility], Cardiac Recovery Suite Waiting Unit, H [address] [place] [address] Melo Pena MD [address] [place] [address] PERCUTANEOUS CLOSURE LEFT ATRIAL APPENDAGE IMPLANT 05/16/2024 12:00 PM EDT [facility] [address] [facility] [place] [address] [place], Cardiac Recovery [facility] [address] [facility] [place] [address] 11/18/2024 1:00 PM EDT PulmDiagnostic Pulmonary Function Lab Bruce [place], [place] [address] [place] [address] West, Pft [address] [place] [address] 11/18/2024 1:40 PM EDT Office Visit Pulmonary Medicine Urmila Irving [address] [place] [address] Wander Gonzalez MD [address] [place] [address] Scheduled Procedures Name Priority Associated Diagnoses Date/Ti [...] this encounter Medical Devices Implanted Type Area Tire Center Manager Device Identifier Shelf Expiration Date Model / Serial / Lot Cath Thermodilution 6fr - [id number] Implanted:Qty: 1 on 11/04/2021 by Kevin Espino DO at [facility] [employer] [id number] 10/13/2023 [id number] / / [id number] Valve Transcath Resilia 29mm - [id number] Implanted:Qty: 1 on 01/16/2024 by Melo Pena MD at [facility] [employer] [id number] 06/19/2025 [id number] / / documented as of this encounter [...] verbally by patient or by statute hierarchy) [email or web address] Care Teams Fence Installer Relationship Specialty Start Date End Date Chino Leavitt DO PCP - General Internal Medicine 01/23/23 documented as of this encounter
--- OUTSIDE RECORDS SUMMARY | 2024-03-18 19:21 | External Medical Summary | Summary of Care ---
Author Name Unknown Organization [facility] Address [address] [facility] [address] Phone [phone] Care Team Providers Care Exchange Specialist Name Role Phone Chino Leavitt DO Primary Care Provider [phone] Reason for Visit * Reason Comments Outpatient Testing Encounter Details Date Type Department Care Team (Late st Contact Info) Description 03/04/2024 2:30 PM EDT Laboratory Laboratory, [facility] 132 [facility] [place] [phone] [facility] 132 [facility] [place] [address] History of transcatheter aortic valve replacement (TAVR) Allergies No known active allergiesdocumented as of this encounter (statuses as of 03/04/2024) Medications Medication Sig Dispensed Refills Start Date End Date Status Swfexlvglku-Zktjnyydj-Ndc C-Mn (GLUCOSAMINE CHONDR 500 COMPLEX) Capsule Take 1 Capsule by mouth every morning. Active [place] 3 1000 MG CAPS Take 1 Capsule [...] failure with preserved left ventricular function (HFpEF) ([facility]) Take 1 Tablet by mouth in the [...] XL)Indications:HFrEF (heart failure with reduced ejection fraction) ([facility]),Longstanding persistent atrial fibrillation (HCC) Take 0.5 Tablets [...] mRNA, LNP-s, No Pre serve, 2-Dose Series (Piictu) 03/30/2022,06/23/2021,10/02/2020,09/11 COVID-19, MRNA-LNP, 23-24, P F, 30 MCG/0.3 mL, 12 YRS AND ABOVE, IM (Inkblazers-Comirnaty) 08/14/2023 Covid-19, Mrna, Lnp-s, Pf, B ivalent, [...] PM EDT Office Visit Family Practice 65 [facility] 293 [place] [address] Chino Leavitt, 293 [place] [address] 04/03/2024 7:15 AM EDT Cardiac Studies Cardiac Studies, [facility] [address] [facility] [place] [address] 04/17/2024 12:30 PM EDT Office Visit Dermatology [facility] [address] [place] [address] Trisha Pulido PA-C [address] [place] [address] 05/16/2024 12:00 PM EDT Hospital Encounter CRS Waiting [facility], Cardiac Recovery Suite Waiting Unit, H [address] [place] [facility] [place] [address] Melo Pena MD [address] [facility] [place] [id number] 05/16/2024 12:00 PM EDT - 05/16/2024 3:00 PM EDT Surgery CRS Waiting [facility], Cardiac Recovery Suite Waiting Unit, H [address] [place] [address] Melo Pena MD [address] [place] [address] PERCUTANEOUS CLOSURE LEFT ATRIAL APPENDAGE IMPLANT 05/16/2024 12:00 PM EDT Office Visit Cardiology [facility] [place] [address] [place] [address] [facility] Cardiac Recovery [facility] [address] [place] [address] 11/18/2024 1:00 PM EDT PulmDiagnostic Pulmonary Function Lab [facility] [address] [facility] [place] [address] West, Pft [address] [place] [address] 11/18/2024 1:40 PM EDT Office Visit Pulmonary Medicine [facility] [address] [facility] [place] [address] Wander Gonzalez MD [address] [place] [address] Pending Results Name Type Priority Associated Diagnoses Date /Time BASIC METABOLIC PANEL Lab Routine History of transcatheter aortic valve replacement (TAVR) 03/04/2024 2:49 PM EDT Scheduled Procedures Name Priority Associated Diagnoses Date/Ti [...] this encounter Medical Devices Implanted Type Area Attorney Lawyer Device Identifier Shelf Expiration Date Model / Serial / Lot Cath Thermodilution 6fr - [id number] Implanted:Qty: 1 on 11/04/2021 by Kvein Espino DO at [facility] [employer] [id number] 10/13/2023 [id number] / / [id number] Valve Transcath Resilia 29mm - [id number] Implanted:Qty: 1 on 01/16/2024 by Melo Pena MD at [facility] [employer] [id number] 06/19/2025 [id number] / / documented as of this encounter Procedures Procedure Name Priority Date/Time Associated Diagnosis Comments CBC Routine 03/04/2024 2:49 PM EDT History of transcatheter aortic valve replacement (TAVR) documented in this encounter Results * (ABNORMAL) CBC (03/04/2024 2:49 PM EDT) WBC 11.29(H) 4.00 - 10.80 K/uL 03/04/2024 2:54 PM EDT [facility] [place] RBC 4.81 4.50 - 5.25 M/uL 03/04/2024 2:54 PM EDT [facility] [place] [facility] HGB 14.8 14.0 - 16.8 g/dL 03/04/2024 2:54 PM EDT [facility] [place] [facility] HCT 46.6 40.0 - 48.4 % 03/04/2024 2:54 PM EDT [facility] [place] [facility] MCV 96.9 82.0 - 99.5 fL 03/04/2024 2:54 PM EDT [facility] [place] [facility] MCH 30.8 27.0 - 34.0 pg 03/04/2024 2:54 PM EDT [facility] [place] [facility] MCHC 31.8 32.0 - 36.0 g/dL 03/04/2024 2:54 PM EDT [facility] [place] [facility] RDW 14.4 11.5 - 15.5 % 03/04/2024 2:54 PM EDT [facility] [place] [facility] PLT 146 140 - 400 K/uL 03/04/2024 2:54 PM EDT [facility] [place] [facility] MPV 10.2 6.6 - 11.1 fL 03/04/2024 2:54 PM EDT [facility] [place] [facility] Blood Venous blood specimen / Unknown Venipuncture / Unknown 03/04/2024 2:49 PM EDT 03/04/2024 2:49 PM EDT Adelina ALEXANDER LAB BLOOD ORDER [facility] [place] [facility] [address] [facility] [address] documented in this encounter Visit Diagnoses Diagnosis Permanent atrial fibrillation (HCC)- Primary Atrial fibrillation History of transcatheter aortic valve replacement (TAVR) [...] verbally by patient or by statute hierarchy) [email or web address] Care Teams Exchange Specialist Relationship Specialty Start Date End Date Chino Leavitt DO PCP - General Internal Medicine 01/23/23 documented as of this encounter
--- OUTSIDE RECORDS SUMMARY | 2024-03-18 19:21 | External Medical Summary ---
Author Name Unknown Address Unknown Organization [id number]:LAB[facility]ATORY [facility] [place] 57[facility] - [address] [place] [address] Laboratory Report Ordering Provider Test Date Status CITLALY VALE 03/04/2024 14:49:52 Final Observation Date Value Abnormality Reference (Units ) Status WBC, Total 03/04/2024 14:49:52 11.29 Above high normal 4 .00-10.80 (K/uL) Final RBC 03/04/2024 14:49:52 4.81 4.50-5.25 (M/uL) Final Hemoglobin 03/04/2024 14:49:52 14.8 14.0-16.8 (g/dL) Final HCT 03/04/2024 14:49:52 46.6 40.0-48.4 (%) Final MCV 03/04/2024 14:49:52 96.9 82.0-99.5 (fL) Final MCH 03/04/2024 14:49:52 30.8 27.0-34.0 (pg) Final MCHC 03/04/2024 14:49:52 31.8 32.0-36.0 (g/dL) Final RDW 03/04/2024 14:49:52 14.4 11.5-15.5 (%) Final Platelets 03/04/2024 14:49:52 146 140-400 (K /uL) Final MPV 03/04/2024 14:49:52 10.2 6.6-11.1 ( fL) Final Performing Location LAB[facility]ATORY [facility] [place] 57-[address] 0 - [address] [place] [address]
--- OUTSIDE RECORDS SUMMARY | 2024-03-18 19:21 | External Medical Summary ---
Author Name Unknown Address Unknown Organization [id number]:LABORATORY [facility] - [address] [facility] [place] [address] Laboratory Report Ordering Provider Test Date Status DAMARI URBANO 03/15/2024 14:10:23 Final Observation Date Value Abnormality Reference (Units ) Status BUN 03/15/2024 14:10:23 35 Above high normal 6-20 (mg/dL) Final Creatinine 03/15/2024 14:10:23 1.3 Above high normal 0.6-1.2 (mg/dL) Final Glomerular filtration rate/1.73 sq M.predicted [Volume Rate/Area] in Serum, Plasma or Blood by Creatinine-based formula (CKD-EPI) 03/15/2024 14:10:23 57 Below low normal >=60 (mL/min) Final eGFR is calculated based on the CKD-EPI 2020 equation Sodium 03/15/2024 14:10:23 141 135-146 (m mol/L) Final Potassium 03/15/2024 14:10:23 4.0 3.5-5.1 (m mol/L) Final Cl 03/15/2024 14:10:23 103 98-107 (mm ol/L) Final CO2 03/15/2024 14:10:23 27 22-32 (mmo l/L) Final Anion gap 03/15/2024 14:10:23 11 7-15 (mmol /L) Final Glucose 03/15/2024 14:10:23 105 70-120 (mg /dL) Final Albumin 03/15/2024 14:10:23 4.1 3.8-5.0 (g /dL) Final AST (Aspartate aminotransferase) 03/15/2024 14:10:23 25 10-50 (U/L) Final Alk Phos 03/15/2024 14:10:23 124 35-130 (U/ L) Final Bilirubin, Total 03/15/2024 14:10:23 0.4 <=1 .2 (mg/dL) Final Calcium 03/15/2024 14:10:23 9.6 8.4-10.2 ( mg/dL) Final Protein 03/15/2024 14:10:23 6.4 6.0-8.3 (g /dL) Final ALT (Alanine aminotransferase) 03/15/2024 14:10:23 29 10-50 (U/L) Final Performing Location LABORATORY [facility] - [facility] N Kellie Rodríguez. [facility] [address]
--- OUTSIDE RECORDS SUMMARY | 2024-03-18 19:21 | External Medical Summary ---
Author Name Unknown Address Unknown Organization [id number][facility] [address] [place] [address] Laboratory Report Ordering Provider Test Date Status CITLALY VALE 03/04/2024 14:49:52 Final Observation Date Value Abnormality Reference (Units ) Status BUN 03/04/2024 14:49:52 28 Above high normal 6-20 (mg/dL) Final Creatinine 03/04/2024 14:49:52 1.2 0.6-1.2 (mg/dL) Final Glomerular filtration rate/1.73 sq M.predicted [Volume Rate/Area] in Serum, Plasma or Blood by Creatinine-based formula (CKD-EPI) 03/04/2024 14:49:52 63 >=60 (mL/min) Final eGFR is calculated based on the CKD-EPI 2020 equation Sodium 03/04/2024 14:49:52 141 135-146 (m mol/L) Final Potassium 03/04/2024 14:49:52 4.2 3.5-5.1 (m mol/L) Final Cl 03/04/2024 14:49:52 102 98-107 (mm ol/L) Final CO2 03/04/2024 14:49:52 27 22-32 (mmo l/L) Final Anion gap 03/04/2024 14:49:52 12 7-15 (mmol /L) Final Glucose 03/04/2024 14:49:52 106 70-120 (mg /dL) Final Calcium 03/04/2024 14:49:52 10.0 8.4-10.2 ( mg/dL) Final Performing Location [facility]ATORY [facility]-[address] 0 - [address] [place] [address]
--- OUTSIDE RECORDS SUMMARY | 2024-03-18 19:21 | External Medical Summary | Summary of Care ---
Author Name Unknown Organization [facility] Address [address] [facility] [place] [address] Phone [phone] Care Team Providers Care Sql Tech Name Role Phone Chino Leavitt DO Primary Care Provider [phone] Reason for Visit * Reason Onset Date Comments Appointment 03/04/2024 Encounter Details Date Type Department Care Team (Late st Contact Info) Description 03/04/2024 Telephone Cardiology, [facility] [address] [place] [id number] Adelina Riddle CRNP [address] [place] [address] Appointment Allergies No known active allergiesdocumented as of this encounter (statuses as of 03/04/2024) Medications Medication Sig Dispensed Refills Start Date End Date Status Xhslfzhpdym-Pvcdfmkca-Hql C-Mn (GLUCOSAMINE CHONDR 500 COMPLEX) Capsule Take 1 Capsule by mouth every morning. Active [place] 3 1000 MG CAPS Take 1 Capsule [...] preserved left ventricular function (HFpEF) ([facility]) Take 1 Tablet by mouth in the morning. 90 Tablet 3 4 Active Spironolactone 25 MG Oral Tablet (Aldactone)Indications:He art failure with preserved left ventricular function (HFpEF) ([facility]) Take 1 Tablet by mouth in [...] XL)Indications:HFrEF (heart failure with reduced ejection fraction) ([facility]),Longstanding persistent atrial fibrillation (HCC) Take 0.5 [...] mRNA, LNP-s, No Pre serve, 2-Dose Series ([employer]) 03/30/2022,06/23/2021,10/02/2020,09/11 COVID-19, MRNA-LNP, 23-24, P F, 30 MCG/0.3 mL, 12 YRS AND ABOVE, IM ([facility]) 08/14/2023 Covid-19, Mrna, Lnp-s, Pf, B ivalent, [...] AM EDT Called patient and sent a [employer] message to see if patient would like to come at 12:30 pm to be seen. Appointment is to stay on the schedule at [address] Awaiting reply to confirm. documented in this encounter Plan of Treatment Upcoming Encounters Date Type Department Care Team (Late st Contact Info) Description 03/04/2024 2:30 PM EDT Laboratory Laboratory, [facility] [address] [facility] [address] [facility] [address] [email or web address] 132 [facility] [place] [address] 03/04/2024 3:00 PM EDT Office Visit Cardiology, [facility] [address] [place] [address] Adelina Riddle CRNP [address] [place] [address] 03/15/2024 1:00 PM EDT Office Visit Family Practice [address] [place] [address] 293 [facility], [place] [address] Chino Leavitt, DO 293 [place] [address] 04/03/2024 7:15 AM EDT Cardiac Studies Cardiac Studies, [facility] [place] [address] 04/17/2024 12:30 PM EDT Office Visit Dermatology [facility] [place] [address] [place] [address] Trisha Pulido PA-C [address] [place] [address] 05/16/2024 12:00 PM EDT Hospital Encounter [facility]S Waiting [facility] Cardiac Recovery Suite Waiting Unit, H [address] [place] [address] Melo Pena MD [address] [place], [place] [address] 05/16/2024 12:00 PM EDT - 05/16/2024 3:00 PM EDT Surgery CRS Waiting [facility] Cardiac Recovery Suite Waiting Unit, H [address] [place] [address] Melo Pena MD [address] [place] [address] PERCUTANEOUS CLOSURE LEFT ATRIAL APPENDAGE IMPLANT 05/16/2024 12:00 PM EDT [facility] [address] [place] [facility] [place] [address] [place], Cardiac Recovery [facility] [address] [facility] [place] [address] 11/18/2024 1:00 PM EDT PulmDiagnostic Pulmonary Function Lab [facility] [place], [place] [address] [place] [address] [place], Pft [address] [place] [address] 11/18/2024 1:40 PM EDT Office Visit Pulmonary Medicine [place] [address] [place] [address] Wander Gonzalez MD [address] [place] [address] Scheduled Procedures Name Priority Associated Diagnoses Date/Ti [...] this encounter Medical Devices Implanted Type Area Radio Talk Show Host Device Identifier Shelf Expiration Date Model / Serial / Lot Cath Thermodilution 6fr - [id number] Implanted:Qty: 1 on 11/04/2021 by Kevin Espino DO at [facility] [employer] [id number] 10/13/2023 [id number] / / [id number] Valve Transcath Resilia 29mm - [id number] Implanted:Qty: 1 on 01/16/2024 by Melo Pena MD at [facility] [employer] [id number] 06/19/2025 [id number] / / documented as of this encounter Advance Directives * Full Code (Latest Code Status on File) Date Activated Date Inactivated Comments 01/16/2024 2:56 PM 01/18/2024 7:23 PM This order r eflects the patients wishes and were consensually agreed upon. Question Answer Comments Discussion of Advance Directives occurred with: Patient Healthcare Agents on File Name Relationship Healthcare Agent Relationship Communication Lexie Zluuaga Significant Other Health Care Re presentative (appointed verbally by patient or by statute hierarchy) [email or web address] Care Teams Sql Tech Relationship Specialty Start Date End Date Chino Leavitt DO PCP - General Internal Medicine 01/23/23 documented as of this encounter
--- OUTSIDE RECORDS SUMMARY | 2024-03-18 19:21 | External Medical Summary | Summary of Care ---
Author Name Unknown Organization [facility] Address [address] [facility] [address] Phone [phone] Care Team Providers Care Brass Plater Name Role Phone Chino Leavitt DO Primary Care Provider [phone] Reason for Visit * Reason Comments Rash Rash in groin area f or at least 3 weeks - has tried using hydrocortisone, Miconazole, Clobetasol. Only thing that has helped is the Bactine spray. Encounter Details Date Type Department Care Team (Late st Contact Info) Description 03/11/2024 3:30 PM EDT Office Visit Dermatology [facility] [address] [place] [address] Trisha Pulido PA-C [address] [place] [address] Rash and nonspecific skin eruption* Allergies No known active allergiesdocumented as of this encounter (statuses as of 03/12/2024) Medications Medication Sig Dispensed Refills Start Date End Date Status Ohdstlnyatl-Yubfjgzqa-Gqg C-Mn (GLUCOSAMINE CHONDR 500 COMPLEX) Capsule Take 1 Capsule by mouth every morning. Active [place] 3 1000 MG CAPS Take 1 Capsule [...] mRNA, LNP-s, No Pre serve, 2-Dose Series ([employer]) 03/30/2022,06/23/2021,10/02/2020,09/11 COVID-19, MRNA-LNP, 23-24, P F, 30 MCG/0.3 mL, 12 YRS AND ABOVE, IM ([facility]) 08/14/2023 Covid-19, Mrna, Lnp-s, Pf, B [...] as of this encounter Progress Notes * Diego Thompson MD - 03/12/2024 1:57 PM EDT I have reviewed the charting notes and orders and associated images and agree with the assessment and plan of Trisha Gray PA-C . Diego Thompson MD., Dermatology [facility] [address] [place] [address] [place] [address] * Trisha Pulido PA-C - 03/11/2024 3:20 PM EDT Nursing Notes: Aaliyah Rockwell LPN 03/11/24 1523 Signed Chief Complaint Patient presents [...] preserved left ventricular function (HFpEF) ([facility]) Mixed restrictive and obstructive lung disease ([facility]) Non-occlusive coronary artery disease Nonrheumatic aortic valve stenosis Pulmonary arterial hypertension (HCC) Sleep apnea, obstructive Patient Active Problem List Diagnosis Heart failure with preserved left ventricular function (HFpEF) ([facility]) Sleep apnea, obstructive Severe aortic valve stenosis Diaphragm dysfunction 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) 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 [place] 3 1000 MG CAPS Take 1 Capsule [...] PM EDT Office Visit Family Practice [address] [facility] [place] [address] [place] [address] Chino Leavitt, 293 [facility] [place] [address] 04/03/2024 7:15 AM EDT Cardiac Studies Cardiac Studies, [facility] 132 [facility] [place] [address] 04/17/2024 12:30 PM EDT Office Visit Dermatology [facility] [address] [place] [address] Trisha Pulido PA-C [address] [place] [address] 05/16/2024 12:00 PM EDT Hospital Encounter CRS Waiting [facility] Card[facility] Suite Waiting Unit, H [address] [place] [address] Melo Pena MD [address] [place] [address] 05/16/2024 12:00 PM EDT - 05/16/2024 3:00 PM EDT Surgery CRS Waiting [facility] Cardiac Recovery Suite Waiting Unit, H [address] [place] [facility] [place] [address] Melo Pena MD [address] [place] [address] PERCUTANEOUS CLOSURE LEFT ATRIAL APPENDAGE IMPLANT 05/16/2024 12:00 PM EDT Office Visit Cardiology [facility] [address] [place] [address] [facility] [address] [facility] [place] [address] 05/28/2024 12:15 PM EDT Office Visit Cardiology, [facility] 132 [facility] [place] [address] Elli Kalpana Aaliyah, DO 400 [facility] [place] [id number] 09/05/2024 2:00 PM EST Office Visit Cardiology, [facility] [place] [address] Avni Pruitt PA-C 132 [facility] [place] [address] 11/18/2024 1:00 PM EDT PulmDiagnostic Pulmonary Function Lab [place] [address] [place] [address] West, Pft 132 [facility] [place] [address] 11/18/2024 1:40 PM EDT Office Visit Pulmonary Medicine [place] [address] [place] [address] [phone] Wander Gonzalez MD [address] [place] [address] Pending Results Name Type Priority Associated Diagnoses Date /Time CULTURE, WOUND, SUPERFICIAL, AEROBIC Lab Routine Rash and nonspecific skin eruption 03/11/2024 3:58 PM EDT Scheduled Procedures Name Priority Associated [...] this encounter Medical Devices Implanted Type Area Lining Stuffer Device Identifier Shelf Expiration Date Model / Serial / Lot Cath Thermodilution 6fr - [id number] Implanted:Qty: 1 on 11/04/2021 by Kevin Espino DO at [facility] [employer] [id number] 10/13/2023 [id number] / / [id number] Valve Transcath Resilia 29mm - [id number] Implanted:Qty: 1 on 01/16/2024 by Melo Pena MD at [facility] [employer] [id number] 06/19/2025 [id number] / / documented as of this encounter Procedures Procedure Name Priority Date/Time Associated Diagnosis Comments CULTURE, WOUND, SUPERFICIAL, AEROBIC Routine 03/11/2024 3:58 PM EDT Rash and nonspecific skin eruption DERM EXAM - DERM (IMAGES ONLY, NO REPORT) Routine 03/11/2024 3:49 PM EDT Rash and nonspecific skin eruption documented in this encounter Results * DERM EXAM - DERM (IMAGES ONLY, NO REPORT) (03/11/2024 3:49 PM EDT) Narrative Scheduling, Silent - 03/11/2024 3:49 PM EDT This is an imaging study not interpreted or resulted by a [facility] or [facility] contracted radiologist. Tirsha Pulido PA-C RADIOLOGY ( [facility]) documented in this encounter Visit Diagnoses [...] verbally by patient or by statute hierarchy) [email or web address] Care Teams Brass Plater Relationship Specialty Start Date End Date Chino Leavitt DO PCP - General Internal Medicine 01/23/23 documented as of this encounter
--- OUTSIDE RECORDS SUMMARY | 2024-03-18 19:21 | External Medical Summary ---
Author Name Unknown Address Unknown Organization K01:LAB[facility]ORY [facility] - [address] [facility] [address] [place] [address] Laboratory Report Ordering Provider Test Date Status MARY ANNE FLOOD 02/13/2024 11:28:47 Final Observation Date Value Abnormality Reference (Units ) Status WBC, Total 02/13/2024 11:28:47 6.80 4.00-10.80 (K/uL) Final RBC 02/13/2024 11:28:47 4.72 4.50-5.25 (M/uL) Final Hemoglobin 02/13/2024 11:28:47 14.5 14.0-16.8 (g/dL) Final HCT 02/13/2024 11:28:47 46.4 40.0-48.4 (%) Final MCV 02/13/2024 11:28:47 98.3 82.0-99.5 (fL) Final MCH 02/13/2024 11:28:47 30.7 27.0-34.0 (pg) Final MCHC 02/13/2024 11:28:47 31.3 32.0-36.0 (g/dL) Final RDW 02/13/2024 11:28:47 13.8 11.5-15.5 (%) Final Platelets 02/13/2024 11:28:47 158 140-400 (K/uL) Final MPV 02/13/2024 11:28:47 10.8 6.6-11.1 (fL) Final Nucleated erythrocytes/100 leukocytes [Ratio] in Blood by Automated count 02/13/2024 11:28:47 0 <=0 (/100 WBCs) Final Performing Location LAB[facility]ORY [facility] - [address] [place] [address]
--- OUTSIDE RECORDS SUMMARY | 2024-03-18 19:22 | External Medical Summary | Summary of Care ---
Author Name Unknown Organization [facility] Address [address] [place] [address] Phone [phone] Care Team Providers Care Disease Education Specialist Name Role Phone Chino Leavitt DO Primary Care Provider [phone] Reason for Visit * Reason Onset Date Comments Irregular Heart Rate 01/22/2024 Slow Heart Rate 01/22/2024 Encounter Details Date Type Department Care Team (Late st Contact Info) Description 01/22/2024 Telephone Cardiology [facility] [address] [place] [address] Dianne Purdy, RN Irregular Heart Rate; Slow Heart Rate (/) Allergies No known active allergiesdocumented as of this encounter (statuses as of 01/23/2024) Medications Medication Sig Dispensed Refills Start Date End Date Status Tjclsmktcfg-Tpyhkphug-Fez C-Mn (GLUCOSAMINE CHONDR 500 COMPLEX) Capsule Take 1 Capsule by mouth every morning. Active [place] 3 1000 MG CAPS Take 1 Capsule by mouth daily. Active Multiple Vitamin (MULTI-DAY VITAMINS) Tablet Take 1 Tab by mouth daily. Active Albuterol Sulfate HFA 108 (90 Base) MCG/ACT Inhalation Aerosol Solution as needed. 2 Active Co Q 10 10 MG Oral Capsule Take by mouth 1 Capsule daily . Active B-12 500 MCG Oral Tablet Take 1 Capsule by mouth in the morning. Active BiPAP every night at bedtime. 18/7 cm Active Ascorbic Acid 250 MG Oral Tablet Take 1 Tablet by mouth in the morning. 3 Active Acetaminophen 500 MG Oral Tablet (Tylenol) Take 2 Tablets by mouth 2 times a day as needed. 1 Active DULoxetine HCl 60 MG Oral [...] the morning. 90 Capsule 3 4 Active Aspirin 81 MG Oral Tablet Chewable Chew & swallow 1 Tablet by mouth in the morning. 30 Tablet 11 4 Active Additional Information Patient not taking.Reported on 01/19/2024 Metoprolol Succinate ER 50 MG Oral Tablet [...] 19, 2024. 180 Tablet 3 4 Active documented as of this encounter (statuses as of 01/23/2024) Active Problems Problem Noted Date Diagnosed Date S/P TAVR (transcatheter aortic valve replacement ) [...] as of this encounter (statuses as of 01/23/2024) Resolved Problems Problem Noted Date Diagnosed Date Resolved Date COPD with emphysema 05/26/2022 03/03/20 23 Anemia 05/26/2022 04/21/2023 documented as of this encounter (statuses as of 01/23/2024) Immunizations Name Administration Dates Next Due COVID-19 mRNA, LNP-s, No Pre serve, 2-Dose Series ([facility]) 03/30/2022,06/23/2021,10/02/2020,09/11 COVID-19, MRNA-LNP, 23-24, P F, 30 MCG/0.3 mL, 12 YRS AND ABOVE, IM ([facility]) 08/14/2023 Covid-19, Mrna, Lnp-s, Pf, B ivalent, 30 Mcg, IM, 12 yrs and above ([facility]) 06/28/2022 Influenza, Whole Virus 07/12/1999 Pneumococcal Conjugate Vacc, 13 Valent (Prevnar) 12/25/2017,12/19/2014 Pneumococcal Polysaccharide PPV23 (Pneumovax) 12/19/2013 RSV Vac., Recomb, Adjuvant, PF,0.5 Ml (Arexvy) 10/12/2023 Seasonal Influenza Virus Vac cine, Unspecified Formulation 05/26/2022,07/03/2021,06/02/2015,07/10,06/04/2013,06/13/2012,06/13/2011 ,06/13/2010,09/10/2009,06/13/2009,02/2008,07/11/2007,08/10/2006, 5,07/09/2003,07/05/2002,07/17/2000 Seasonal Influenza, Quadriva lent Hd (Fluzone Hd) 05/29/2023,05/26/2022 Seasonal Influenza, Split, I IV3, With Preserve, Inj 06/18/2019,06/19/2018,07/18/2017,06/02 TD - Tetanus/Diptheria (ADULT) 01/01/2003 TDAP (age 10 and older)(Boostrix) 01/23/2023 TDAP (age 11 and older)(Adacel) 12/18/2012 Varicella Zoster Vaccine (Adult) 04/14/2009 Zoster [...] encounter Miscellaneous Notes * Telephone Encounter - Mono Jones OSA - 01/23/2024 10:53 AM EDT Called patient, spoke with him, stated he does not need to come in to see Adelina Riddle, because hewill see Dr. Pena next Monday, the . Patient understood he does not need to come in on 01/24/24. * Telephone Encounter - Adelina Riddle CRNP - 01/22/2024 3:08 PM EDT Spoke with Dianne and Dr. Pena via TT. Please cancel appt with me on 01/24/2024. Patient to keep appt with Dr. Pena 01/31/2024. Please make sure patient is aware. BENJAMIN Cisse * Telephone Encounter - Dianne Purdy, RN - 01/22/2024 9:34 AM EDT Received a message from rhythm this morning for new notification alert Josias had 60 second episode of slow Afib (HR 40s) Monday morning. Will review with Dr. Pena, patient has his one week follow up with us on Monday. YARITZA HagenN Interventional Valve Nurse Navigator documented in this encounter Plan of Treatment Upcoming Encounters Date Type Department Care Team (Late st Contact Info) Description 01/23/2024 2:40 PM EDT Pharmacy Family Practice [address] [place] [phone] College, Pharmacist [address] [place] [address] 01/23/2024 3:00 PM EDT Office Visit Family Practice [address] [place] [address] 293 [place] [address] Chino Leavitt, 293 [place] [address] 01/26/2024 10:00 AM EDT Scheduled Telephone Care Coordination and Integration [address] [place] [address] Sena Agrawal, Community Health Tour Coordinator [address] [place] [address] 01/31/2024 11:30 AM EDT Office Visit Cardiology, [facility] 132 [facility] [place] [address] Melo Pena MD [address] [place] [address] 03/04/2024 2:30 PM EDT Laboratory Laboratory, [facility] 132 [facility] [place] [phone] Laith Lab [facility] 132 [facility] [place], [place] [address] 03/04/2024 3:00 PM EDT Office Visit Cardiology, [facility] 132 [facility] [place] [address] Adelina Riddle CRNP 132 [facility] [place] [address] 03/15/2024 1:00 PM EDT Office Visit Family Practice [address] [place] [address] 293 [place] [phone] Chino Leavitt DO 293 [facility] [place] [address] 04/03/2024 7:15 AM EDT Cardiac Studies Cardiac Studies, [facility] 132 [facility] [place] [address] 04/17/2024 12:30 PM EDT Office Visit Dermatology [facility] [address] [place] [address] Trisha Pulido PA-C [address] [place] [address] 11/18/2024 1:00 PM EDT PulmDiagnostic Pulmonary Function Lab Urmila [place] [address] [place] [address] West, Pft 132 [facility] [place] [address] 11/18/2024 1:40 PM EDT Office Visit Pulmonary Medicine [place] [address] [place] [phone] Wander Gonzalez MD [address] [place] [address] Health Maintenance Due Date Last Done Comments [...] this encounter Medical Devices Implanted Type Area Guide Tour Device Identifier Shelf Expiration Date Model / Serial / Lot Cath Thermodilution 6fr - [id number] Implanted:Qty: 1 on 11/04/2021 by Kevin Espino DO at [facility] [employer] [id number] 10/13/2023 [id number] / / [id number] Valve Transcath Resilia 29mm - [id number] Implanted:Qty: 1 on 01/16/2024 by Melo Pena MD at [facility] [employer] [id number] 06/19/2025 [id number] / / documented as of this encounter [...] patient or by statute hierarchy) Care Teams Disease Education Specialist Relationship Specialty Start Date End Date Chino Leavitt DO [address] [place] [address] PCP - General Internal Medicine 01/23/23 documented as of this encounter
--- OUTSIDE RECORDS SUMMARY | 2024-03-18 19:22 | External Medical Summary ---
Author Name Unknown Address Unknown Organization K01:LABORATORY [facility] [place] - [address] [place] [address] Laboratory Report Ordering Provider Test Date Status MARY ANNE FLOOD 02/13/2024 11:28:47 Final Observation Date Value Abnormality Reference (Units ) Status BUN 02/13/2024 11:28:47 30 Above high normal 6-20 (mg/dL) Final Creatinine 02/13/2024 11:28:47 1.2 0.6-1.2 (mg/dL) Final Glomerular filtration rate/1.73 sq M.predicted [Volume Rate/Area] in Serum, Plasma or Blood by Creatinine-based formula (CKD-EPI) 02/13/2024 11:28:47 66 >=60 (mL/min) Final eGFR is calculated based on the CKD-EPI 2020 equation Sodium 02/13/2024 11:28:47 143 135-146 (m mol/L) Final Potassium 02/13/2024 11:28:47 4.3 3.5-5.1 (m mol/L) Final Cl 02/13/2024 11:28:47 104 98-107 (mm ol/L) Final CO2 02/13/2024 11:28:47 30 22-32 (mmo l/L) Final Anion gap 02/13/2024 11:28:47 9 7-15 (mmol /L) Final Glucose 02/13/2024 11:28:47 94 70-120 (mg /dL) Final Albumin 02/13/2024 11:28:47 4.1 3.8-5.0 (g /dL) Final AST (Aspartate aminotransferase) 02/13/2024 11:28:47 30 10-50 (U/L) Final Alk Phos 02/13/2024 11:28:47 126 35-130 (U/ L) Final Bilirubin, Total 02/13/2024 11:28:47 0.4 <=1 .2 (mg/dL) Final Calcium 02/13/2024 11:28:47 9.5 8.4-10.2 ( mg/dL) Final Protein 02/13/2024 11:28:47 6.5 6.0-8.3 (g /dL) Final ALT (Alanine aminotransferase) 02/13/2024 11:28:47 49 10-50 (U/L) Final Performing Location LABOR[facility]ORY [facility] [place] - [address] [facility] [address]
--- OUTSIDE RECORDS SUMMARY | 2024-03-18 19:22 | External Medical Summary ---
Author Name Unknown Address Unknown Organization K01:[facility] [place] [address] [facility] [address] Laboratory Report Ordering Provider Test Date Status ARMANI FLOODROCK 02/13/2024 11:28:47 Final Observation Date Value Abnormality Reference (Units ) Status SYNC LEUKOCYTES IN BLOOD BY AUTOMATED COUNT 02/13/2024 11:28:47 6.80 4.00-10.80 (K/uL) Final Segs 02/13/2024 11:28:47 68.0 40.0-75.0 (%) Final Lymphs % 02/13/2024 11:28:47 9.6 Below low normal 18.0-42.0 (%) Final Monos 02/13/2024 11:28:47 15.9 Above high normal 1.0-11.0 (%) Final Eosinophils 02/13/2024 11:28:47 4.6 0.0-6.0 (%) Final Basos 02/13/2024 11:28:47 0.9 0.0-2.0 (%) Final Immature Granulocyte, Percent 02/13/2024 11:28:47 1.0 0.0-2.0 (%) Final Absolute Segs 02/13/2024 11:28:47 4.63 1.80-7.70 (K/uL) Final Lymphs, absolute 02/13/2024 11:28:47 0.65 Below low normal 1.00-4.80 (K/ul) Final Monos, Abs 02/13/2024 11:28:47 1.08 0.00-1.10 (K/uL) Final Eos, Abs 02/13/2024 11:28:47 0.31 0.00-0.70 (K/uL) Final Basos, Abs 02/13/2024 11:28:47 0.06 0.00-0.20 (K/uL) Final Immature Granulocytes, Number 02/13/2024 11:28:47 0.07 0.00-0.20 (K/uL) Final Performing Location [facility] [place] [address] [facility] [address]
--- OUTSIDE RECORDS SUMMARY | 2024-03-18 19:22 | External Medical Summary ---
Author Name Unknown Address Unknown Organization K01:[facility]ATORY [facility] [place] - [address] [place] [address] Laboratory Report Ordering Provider Test Date Status MARY ANNE FLOOD 02/13/2024 11:28:47 Final Observation Date Value Abnormality Reference (Units ) Status Iron 02/13/2024 11:28:47 89 45-176 (ug /dL) Final Iron-binding capacity 02/13/2024 11:28:47 339 250-425 (ug/dL) Final Transferrin Sat % 02/13/2024 11:28:47 26 15 -55 (%) Final Performing Location LAB[facility]ORY [facility] [place] - [address] [place] [address]
--- OUTSIDE RECORDS SUMMARY | 2024-03-18 19:22 | External Medical Summary | Summary of Care ---
Author Name Unknown Organization [facility] Address [address] [place] [address] Phone [phone] Care Team Providers Care Data Center Project Manager Name Role Phone Chino Leavitt DO Primary Care Provider [phone] Encounter Details Date Type Department Care Team (Late st Contact Info) Description 02/02/2024 1:00 PM EDT Scheduled Telephone Care Coordination and Integration [address], [place] [phone] Sena Agrawal, [facility] [address], [place] [id number] Allergies No known active allergiesdocumented as of this encounter (statuses as of 02/02/2024) Medications Medication Sig Dispensed Refills Start Date End Date Status Lskhdbbnloz-Xcirvzsrt-Rau C-Mn (GLUCOSAMINE CHONDR 500 COMPLEX) Capsule Take 1 Capsule by mouth every morning. Active [place] 3 1000 MG CAPS Take 1 Capsule [...] with preserved left ventricular function (HFpEF) ([facility]) Take 1 Tablet by mouth in the morning. 90 Tablet 3 4 Active Spironolactone 25 MG Oral Tablet (Aldactone)Indications:He art failure with preserved left ventricular function (HFpEF) ([facility]) Take 1 Tablet by mouth in the [...] (heart failure with reduced ejection fraction) ([facility]),Longstanding persistent atrial fibrillation (HCC) Take 0.5 Tablets [...] 4 Active Amoxicillin 500 MG Oral Capsule (Amoxil) Take 4 tablets 1 hour prior to dental procedures. 30 Capsule 4 Active documented as of this encounter (statuses as of 02/02/2024) Active Problems Problem Noted Date Diagnosed Date [...] as of this encounter (statuses as of 02/02/2024) Resolved Problems Problem Noted Date Diagnosed Date Resolved Date COPD with emphysema 05/26/2022 03/03/20 23 Anemia 05/26/2022 04/21/2023 documented as of this encounter (statuses as of 02/02/2024) Immunizations Name Administration Dates Next Due COVID-19 mRNA, LNP-s, No Pre serve, 2-Dose Series ([employer]) 03/30/2022,06/23/2021,10/02/2020,09/11 COVID-19, MRNA-LNP, 23-24, P F, 30 MCG/0.3 mL, 12 YRS AND ABOVE, IM ([facility]) 08/14/2023 Covid-19, Mrna, Lnp-s, Pf, B ivalent, 30 Mcg, IM, 12 yrs and above ([employer]) 06/28/2022 Influenza, Whole Virus 07/12/1999 Pneumococcal Conjugate Vacc, 13 Valent (Prevnar) 12/25/2017,12/19/2014 Pneumococcal Polysaccharide PPV23 (Pneumovax) 12/19/2013 RSV Vac., Recomb, Adjuvant, PF,0.5 Ml (Arexvy) 10/12/2023 Seasonal Influenza Virus Vac cine, Unspecified Formulation 05/26/2022,07/03/2021,06/02/2015,07/10,06/04/2013,06/13/2012,06/13/2011 ,06/13/2010,09/10/2009,06/13/2009,02/2008,07/11/2007,08/10/2006,,07/09/2003,07/05/2002,07/17/2000 Seasonal Influenza, Quadriva lent Hd (Fluzone Hd) [...] Progress Notes * Sena Agrawal [facility] - 02/02/2024 10:59 AM EDT Telemedicine visit: No [facility]or ([place]ORINA) documentation: [facility] f/u call, week 2 per LUIS Yost Wound is healed Denies fever/chills Denies SOB Weights daily with no changes in weight noted. Confirmed contact info for CM documented in this encounter Plan of Treatment Upcoming Encounters Date Type Department Care Team (Late st Contact Info) Description 03/04/2024 2:30 PM EDT Laboratory [facility], [facility] [address] [phone] Андрей Ozuna [address] [place] [address] 03/04/2024 3:00 PM EDT Office Visit Cardiology, [facility] [address] [facility] [place] [address] Adelina Riddle CR[facility] [address] [facility] [address] 03/15/2024 1:00 PM EDT Office Visit Family Practice [address] [place] [address] [address] [place] [address] Chino Leavitt, [address] [place] [address] 04/03/2024 7:15 AM EDT Cardiac Studies Cardiac Studies, [facility] [address] [facility] [place] [address] 04/17/2024 12:30 PM EDT Office Visit Dermatology [facility] [address] [place] [address] Trisha Pulido PA-C [address] [place] [address] 05/16/2024 Hospital Encounter CR[place]ing [facility] Card[facility] Recovery Suite Waiting Unit, H [address] [place] [address] Melo Pena MD [address] [place] [address] 11/18/2024 1:00 PM EDT PulmDiagnostic Pulmonary Function Lab [place] [address] [address] [place], [address] [facility] [place] [address] 11/18/2024 1:40 PM EDT Office Visit Pulmonary Medicine [place] [address] [phone] Wander Gonzalez MD [address] [place] [address] Scheduled Procedures Name Priority Associated Diagnoses Date/Ti me PERCUTANEOUS CLOSURE LEFT AT RIAL APPENDAGE IMPLANT Permanent atrial fibrillation (HCC) Health Maintenance Due Date Last Done Comments [...] this encounter Medical Devices Implanted Type Area Security Assurance Analyst Device Identifier Shelf Expiration Date Model / Serial / Lot Cath Thermodilution 6fr - [id number] Implanted:Qty: 1 on 11/04/2021 by Kevin Espino DO at [facility] [email or web address] CURRY [id number] 10/13/2023 [id number] / / [id number] Valve Transcath Resilia 29mm - [id number] Implanted:Qty: 1 on 01/16/2024 by Melo Pena MD at [facility] [employer] [id number] 06/19/2025 [id number] / / documented as of this encounter [...] verbally by patient or by statute hierarchy) [email or web address] Care Teams Data Center Project Manager Relationship Specialty Start Date End Date Chino Leavitt DO [address] [place] [address] PCP - General Internal Medicine 01/23/23 documented as of this encounter
--- OUTSIDE RECORDS SUMMARY | 2024-03-18 19:22 | External Medical Summary ---
Author Name Unknown Address Unknown Organization K01:LABORATORY [facility] - [address] [place] [address] Laboratory Report Ordering Provider Test Date Status MARY ANNE FLOOD 02/13/2024 11:28:47 Final Observation Date Value Abnormality Reference (Units ) Status Transferrin 02/13/2024 11:28:47 276 200-360 (mg/dL) Final Performing Location LABORATORY [facility] - [address] [place] [address]
--- OUTSIDE RECORDS SUMMARY | 2024-03-18 19:22 | External Medical Summary | Summary of Care ---
Author Name Unknown Organization [facility] Address [address] [place] [address] Phone [phone] Care Team Providers Care Credit Risk Review Officer Name Role Phone Chino Leavitt DO Primary Care Provider [phone] Encounter Details Date Type Department Care Team (Late st Contact Info) Description 01/26/2024 10:00 AM EDT Scheduled Telephone Care Coordination and Integration [address] [place], [place] [phone] Sena Agrawal, [facility] [address] [place] [address] Allergies No known active allergiesdocumented as of this encounter (statuses as of 01/26/2024) Medications Medication Sig Dispensed Refills Start Date End Date Status Ldfcfxlrftn-Dwvlavbei-Igq C-Mn (GLUCOSAMINE CHONDR 500 COMPLEX) Capsule Take 1 Capsule by mouth every morning. Active [place] 3 1000 MG CAPS Take 1 Capsule [...] failure with preserved left ventricular function (HFpEF) ([facility]) Take 1 Tablet by mouth in the [...] XL)Indications:HFrEF (heart failure with reduced ejection fraction) ([facility]),Longstanding persistent atrial fibrillation (HCC) Take 0.5 Tablets [...] mouth at bedtime as needed. 4 Active documented as of this encounter (statuses as of 01/26/2024) Active Problems Problem Noted Date Diagnosed Date [...] as of this encounter (statuses as of 01/26/2024) Resolved Problems Problem Noted Date Diagnosed Date Resolved Date COPD with emphysema 05/26/2022 03/03/20 23 Anemia 05/26/2022 04/21/2023 documented as of this encounter (statuses as of 01/26/2024) Immunizations Name Administration Dates Next Due COVID-19 mRNA, LNP-s, No Pre serve, 2-Dose Series ([employer]) 03/30/2022,06/23/2021,10/02/2020,09/11 COVID-19, MRNA-LNP, 23-24, P F, 30 MCG/0.3 mL, 12 YRS AND ABOVE, IM ([facility]) 08/14/2023 Covid-19, Mrna, Lnp-s, Pf, B ivalent, 30 Mcg, IM, 12 yrs and above ([employer]) 06/28/2022 Influenza, Whole Virus 07/12/1999 Pneumococcal Conjugate [...] Progress Notes * Sena Agrawal [facility] - 01/26/2024 10:22 AM EDT Telemedicine visit: No [facility] (DORINA) documentation: [facility]W HOLA f/u call week 1 per LUIS Yost Wound is healing well Denies fever/chills Denies SOB Weights are stable, weighing daily. Confirmed contact info for CM documented in this encounter Plan of Treatment Upcoming Encounters Date Type Department Care Team (Late st Contact Info) Description 01/31/2024 11:30 AM EDT Office Visit Cardiology, [facility] [address] [facility] [place] [address] Melo Pena MD [address] [place], [place] [id number] 01/31/2024 1:00 PM EDT Imaging Radiology [facility] 132 [facility] [place] [address] 03/04/2024 2:30 PM EDT Laboratory Laboratory, [facility] [address] [facility] [place] [address] [address] [place] [facility] [address] [facility] [place] [address] 03/04/2024 3:00 PM EDT Office Visit Cardiology, [facility] [address] [facility] [address] Adelina Riddle CRNP 132 [place] [address] 03/15/2024 1:00 PM EDT Office Visit Family Practice [address] [place] [address] 293 [place] [address] Chino Leavitt, 293 [place] [address] 04/03/2024 7:15 AM EDT Cardiac Studies Cardiac Studies, [facility] 132 [facility] [place] [address] 04/17/2024 12:30 PM EDT Office Visit Dermatology [facility] [address] [place] [address] Trisha Pulido PA-C [address] [place] [address] 11/18/2024 1:00 PM EDT PulmDiagnostic Pulmonary Function Lab [place] [address] [address] [address], [address] 132 [facility] [place] [address] 11/18/2024 1:40 PM EDT Office Visit Pulmonary Medicine [place] [address] [phone] Wander Gonzalez MD [address] [address] Health Maintenance Due Date Last Done Comments [...] this encounter Medical Devices Implanted Type Area Utility Bill Collection Clerk Device Identifier Shelf Expiration Date Model / Serial / Lot Cath Thermodilution 6fr - [id number] Implanted:Qty: 1 on 11/04/2021 by Kevin Espino DO at [facility] [employer]RY [id number] 10/13/2023 [id number] / / [id number] Valve Transcath Resilia 29mm - [id number] Implanted:Qty: 1 on 01/16/2024 by Melo Pena MD at [facility] [employer] [id number] 06/19/2025 [id number] / / documented as of this encounter [...] verbally by patient or by statute hierarchy) [email or web address] Care Teams Credit Risk Review Officer Relationship Specialty Start Date End Date Chino Leavitt DO [address] [facility] [place] [address] PCP - General Internal Medicine 01/23/23 documented as of this encounter
--- OUTSIDE RECORDS SUMMARY | 2024-03-18 19:22 | External Medical Summary | Summary of Care ---
Author Name Unknown Organization [facility] Address [address] [place] [facility] [place] [place] [address] Phone [phone] Care Team Providers Care Group Chief Operator Name Role Phone Chino Leavitt DO Primary Care Provider [phone] Reason for Visit * Reason Onset Date Comments Hospital Follow-Up Hospital Follow-Up 01/23/2024 Encounter Details Date Type Department Care Team (Latest Contact Info) Description 01/23/2024 3:00 PM EDT Office Visit Family Practice [address], [place] [address] [place] [address] Chino Leavitt DO [address] [place] [address] S/P TAVR (transcatheter aortic valve replacement)*; Heart failure with preserved left ventricular function (HFpEF) ([facility]); 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); COPD, group B, by GOLD 2017 classification ([facility]); Persistent atrial fibrillation (HCC); Iron deficiency anemia secondary to inadequate dietary iron intake; Neuromuscular respiratory weakness ([facility]); Diaphragm dysfunction; Sleep apnea, obstructive; Liver cyst; Hospital discharge follow-up Allergies No known active allergiesdocumented as of this encounter (statuses as of 01/23/2024) Medications Medication Sig Dispensed Refills Start Date End Date Status Muymlhzhmkn-Cfodtikcr-Yuq C-Mn (GLUCOSAMINE CHONDR 500 COMPLEX) Capsule Take 1 Capsule by mouth every morning. Active Grandy 3 1000 MG CAPS Take 1 Capsule [...] failure with reduced ejection fraction) ([facility]),Longstanding persistent atrial fibrillation (HCC) Take 0.5 [...] mRNA, LNP-s, No Pre serve, 2-Dose Series (Pfizer) 03/30/2022,06/23/2021,10/02/2020,09/11 COVID-19, MRNA-LNP, 23-24, P F, 30 [...] money to buy more. Never true 01/19/20 Within the past 12 months, t he [...] Sign Reading Time Taken Comments Blood Pressure 126/78 01/23/2024 2:53 PM EDT Pulse 60 01/23/2024 2:53 PM EDT Temperature 36.4 C (97.6 F) 01/23/2024 2:53 PM ED T Respiratory Rate - - Oxygen Saturation 97% 01/23/2024 2:53 PM EDT Inhaled Oxygen Concentration - - Weight 116.9 kg (257 lb 11.2 oz) 01/23/2024 2:53 PM EDT Height 175.3 cm (5' 9") 01/23/2024 2:53 PM EDT Body Mass Index 38.06 01/23/2024 2:53 PM EDT documented in this [...] this encounter Progress Notes * Chino Leavitt, - 01/23/2024 3:36 PM EDT SUBJECTIVE: Josias De Los Santos is a 73 year old male. Chief Complaint Patient presents with Hospital Follow-Up Hospital Follow-Up Recent Admission: Patient was recently admitted to [facility]. The date of discharge was 01/18/2024. Discharge report received and reviewed. HPI: Patient is a 72 year old male with a history of Paradoxical Diaphragm Motion, Severe Aortic Valve Stenosis, Atrial Fibrillation, Obstructive Sleep Apnea, CHF with preserved ejection fraction, LVH, Iron Deficiency Anemia, Hyperlipidemia, and nonocclusive CAD that is seen for hospital follow up.He was admitted to [facility] 01/16/2024 - 01/18/2024 for TAVR No chest pain or shortness of breath are present. Weight is stable and appetite is good. He uses BiPAP every night. EGD and Colonoscopy were postponed until after Valve replacement. He also will have future right hip replacement. Hip pain is present at all times. He had liver cyst on CT done while hospitalized. Bradycardia was present post TAVR and patient required temporary transvenous pacing. He is currently wearing a Zio. 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 Grandy 3 1000 MG CAPS Take 1 Capsule [...] Take 1 Capsule by mouth every evening. Torsemide 20 MG Oral Tablet (Demadex) TAKE 2 TABLETS DAILY FIRST THING IN THE MORNING 180 Tablet 3 Iron 325 (65 Fe) MG Oral Tablet [...] mouth in the morning. 90 Capsule 3 Aspirin 81 MG Oral Tablet Chewable Chew & swallow 1 Tablet by mouth in the morning. (Patient not taking: Reported on 01/19/2024) 30 Tablet 11 Metoprolol Succinate ER 50 MG Oral Tablet Extended Release 24 Hour (Toprol XL) Take 0.5 Tablets by mouth in the morning. 135 Tablet 3 Apixaban 5 MG Oral Tablet (Eliquis) Take 1 Tablet by mouth in the morning and 1 Tablet before bedtime. Do not start before January 19, 2024. 180 Tablet 3 Zolpidem Tartrate ER 6.25 MG Oral Tablet Extended Release Take 1 Tablet by mouth at bedtime as needed. No current facility-administered medications for this visit. Current and discharge medications have been reconciled. Review of patient's allergies indicates: No Known Allergies OBJECTIVE: BP 126/78 | Pulse 60 | Temp 36.4 C (97.6 F) | Ht 1.753 m (5' 9") | Wt 116.9 kg (257 lb 11.2 oz)| SpO2 97% | BMI 38.06 kg/m | BSA 2.39 m REVIEW OF SYSTEMS: Review of Systems Constitutional: Negative for appetite change, fatigue and unexpected weight change. HENT: Negative for congestion, sore throat and trouble swallowing. Respiratory: Negative for cough, shortness of breath and wheezing. Cardiovascular: Negative for chest pain, palpitations and leg swelling. Gastrointestinal: Negative for abdominal pain, blood in stool, constipation, diarrhea, nausea and vomiting. Genitourinary: Negative for dysuria and hematuria. Musculoskeletal: Negative for back pain and gait problem. Chronic right hip and left knee pain are present Neurological: Negative for dizziness, syncope and headaches. Psychiatric/Behavioral: Negative for confusion, decreased concentration and sleep disturbance. PHYSICAL EXAM: BP 126/78 | Pulse 60 | Temp 36.4 C (97.6 F) | Ht 1.753 m (5' 9") | Wt 116.9 kg (257 lb 11.2 oz)| SpO2 97% | BMI 38.06 kg/m | BSA 2.39 m Physical Exam Vitals and nursing note [...] No edema. Left lower leg: No edema. Neurological: Mental Status: He is alert and oriented to person, place, and time. Mental status is at baseline. Motor: No weakness. Gait: Gait normal. Psychiatric: Mood and Affect: Mood normal. Behavior: Behavior normal. Thought Content: Thought content normal. 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 I spent a total of 40-54 minutes (exact time 40 mins) minutes on the date of service in preparation, delivery, and documentation of the care provided to Josias De Los Santos excluding any time spent in performance of separately billed services. Chino Leavitt DO documented in this encounter Nursing Notes * Aaliyah Sanchez LPN - 01/23/2024 2:52 PM EDT Here for hospital follow up,overall, fells well. documented in this encounter Plan of Treatment Upcoming Encounters Date Type Department Care Team (Late st Contact Info) Description 01/26/2024 10:00 AM EDT Scheduled Telephone Care Coordination and Integration [address] [place] [address] Sena Agrawal [facility] Health Filler Block Inserter Remover [address] [place] [address] 01/31/2024 11:30 AM EDT Office Visit Cardiology, [facility] [address] [facility] [place] [address] Melo Pena MD [address] [place] [address] 01/31/2024 1:00 PM EDT Imaging Radiology [facility] [address] [facility] [place] [address] 03/04/2024 2:30 PM EDT Laboratory Laboratory, [facility] [address] [facility] [place] [address] Андрей Ozuna [facility] [address] [facility] [place] [address] 03/04/2024 3:00 PM EDT Office Visit Cardiology, [facility] [address] [facility] [place] [address] Adelina Riddle CRNP [address] [facility] [address] 03/15/2024 1:00 PM EDT Office Visit Family Practice [address] [place] [address] [place] [address] Chino Leavitt, [address] [facility] [address] 04/03/2024 7:15 AM EDT Cardiac Studies Cardiac Studies, [facility] [address] [facility] [place] [address] 04/17/2024 12:30 PM EDT Office Visit Dermatology [facility] [address] [place] [address] Trisha Pulido PA-C [address] [place] [address] 11/18/2024 1:00 PM EDT PulmDiagnostic Pulmonary Function Lab Bruce Matthews, Leslie [facility] [address] [place] [address] [address], [address] [facility] [place] [address] 11/18/2024 1:40 PM EDT Office Visit Pulmonary Medicine Bruce Urmila Matthews [address] [place] [phone] Wander Gonzalez MD [address] [place] [address] Scheduled Orders Name Type Priority Associated Diagnoses Orde r Schedule US ABDOMEN LIMITED Medical Imaging Routine Liver cyst Expected: 01/23/2024, Expires: 02/22/2025 Health Maintenance Due Date Last Done Comments Hepatitis C Screening 1968 COVID-19 Vaccine (2022- season) 2024 08/14/2023, 06/28/2022, 03/30/2022, Additional history exists Postponed from 12/14/2023 (Patient Declined After Education) O2 ASSESSMENT COMPLETED IN PAST YEAR FOR [...] this encounter Medical Devices Implanted Type Area Manager Of School Device Identifier Shelf Expiration Date Model / Serial / Lot Cath Thermodilution 6fr - [id number] Implanted:Qty: 1 on 11/04/2021 by Kevin Espino DO at [facility] [employer] [id number] 10/13/2023 [id number] / / [id number] Valve Transcath Resilia 29mm - [id number] Implanted:Qty: 1 on 01/16/2024 by Melo Pena MD at [facility] [employer] [id number] 06/19/2025 [id number] / / documented as of this encounter Visit Diagnoses Diagnosis S/P TAVR (transcatheter aortic valve replacement)- Primary Heart valve replaced by other means Heart failure with preserved left ventricular function (HFpEF) (HCC) Heart failure, unspecified 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) Chronic airway obstruction, not elsewhere classified COPD, group B, by GOLD 2017 classification (HCC) Persistent atrial fibrillation (HCC) Atrial fibrillation Iron deficiency anemia secondary to inadequate dietary iron intake Neuromuscular respiratory weakness (HCC) Other diseases of respiratory system, not elsewhere classified Diaphragm dysfunction Disorders of diaphragm Sleep apnea, obstructive Obstructive sleep apnea (adult) (pediatric) Liver cyst Other specified disorders of liver Hospital discharge follow-up Other follow-up examination documented in this encounter Advance Directives * [...] verbally by patient or by statute hierarchy) [email or web address] Care Teams Group Chief Operator Relationship Specialty Start Date End Date Chino Leavitt DO [address] [place] [address] PCP - General Internal Medicine 01/23/23 documented as of this encounter
--- OUTSIDE RECORDS SUMMARY | 2024-03-18 19:22 | External Medical Summary | Summary of Care ---
Author Name Unknown Organization [facility] Address [address] [place] [facility] [place] [place] [address] Phone [phone] Care Team Providers Care Knuckle Bender Name Role Phone Chino Leavitt DO Primary Care Provider [phone] Reason for Visit * Reason Comments Dosage Adjustment In Person (Anticoag Cl inic) Medication Management Encounter Details Date Type Department Care Team (Late st Contact Info) Description 01/23/2024 2:40 PM EDT Pharmacy Family Practice [address] [phone] [place], Pharmacist [address] [address] Medication management* Allergies No known active allergiesdocumented as of this encounter (statuses as of 01/26/2024) Medications Medication Sig Dispensed Refills Start Date End Date Status Cfpwgldwrbe-Iowtnghxg-Ct t C-Mn (GLUCOSAMINE CHONDR 500 COMPLEX) Capsule Take 1 Capsule by mouth every morning. Active Dodson 3 1000 MG CAPS Take 1 Capsule [...] evening. Active Torsemide 20 MG Oral Tablet (Demadex)Indications:Pul [...] failure with preserved left ventricular function (HFpEF) ([facility]) Take 1 Tablet by mouth in the morning. 90 Tablet 3 4 Active Spironolactone 25 MG Oral Tablet (Aldactone)Indications:H eart failure with preserved left ventricular function (HFpEF) ([facility]) Take 1 Tablet by mouth in the [...] the morning. 90 Capsule 3 4 Active Metoprolol Succinate ER 50 MG Oral Tablet Extended Release 24 Hour (Toprol XL)Indications:HFrEF (heart failure with reduced ejection fraction) ([facility]),Longstanding persistent atrial fibrillation (HCC) Take 0.5 Tablets [...] mouth at bedtime as needed. 4 Active Albuterol Sulfate HFA 108 (90 Base) MCG/ACT Inhalation Aerosol Solution as needed. 2 01/23/20 Discontinu ed(Medicat ion List Clean Up) Aspirin 81 MG Oral Tablet Chewable Chew & swallow 1 Tablet by mouth in the morning. 30 Tablet 11 4 01/26/20 Discontinu ed(Medicat ion/Dose Changed) documented as of this encounter (statuses as [...] mRNA, LNP-s, No Pre serve, 2-Dose Series ([employer]) 03/30/2022,06/23/2021,10/02/2020,09/11 COVID-19, MRNA-LNP, 23-24, P F, 30 [...] as of this encounter Progress Notes * Jacqueline Phelps, Inga Durham, [facility] - 01/23/2024 2:00 PM EDT Medication Therapy [facility] - Medication Reconciliation Josias De Los Santos is an 73 year old being seen for medication reconciliation after hospitalization. Prescription insurance information: [employer] jona - DOD/ Do you have any other prescription coverage: No Preferred pharmacy: [facility] [x] Problem list reviewed [x] Allergies reviewed and updated if needed [x] Drug interaction check completed [x] HEDIS list addressed Immunizations: indicated for updated COVID Date of Hospital Admission/Primary Diagnosis: 01/15 - [facility] - elective TAVR Date of Discharge from Hospital: 01/18/24 Medication changes during admission/on discharge: Added: aspirin 1 tablet daily Modified: hold eliquis through 01/18 then restart; metoprolol decreased from 50mg to 25 mg daily Discontinued: none Does the patient currently have all of their medications in their home?: Yes Labs/Vitals/Risk Scores: The ASCVD Risk score (Eron POST, et al., 2019) failed to calculate for the following reasons: The patient has a prior [place] or stroke diagnosis BP Readings from Last 3 Encounters: 01/18/24 140/82 12/20/23 152/80 12/13/23 140/80 No results for input(s): "HGBA1C" in the last 81149 hours. Recent Labs Units 01/18/24 0427 01/17/24 0424 01/16/24 1713 ESTIMATED GLOMERULAR FILTRATION RATE - [facility] mL/min 78 66 65 Serum creatinine: 1 mg/dL 01/18/[address] Estimated creatinine clearance: 79.8 mL/min Assessment & Plan: Medication discrepancies identified: - Discharge summary lists that patient was to start aspirin, however patient reports that Dr. Hollingsworthvised him not to on discharge. Tigertexted and she confirmed patient was advised not to take aspirin due to concurrent Eliquis per Dr. Pena. Dose/frequency of medications appropriate for current renal function? yes Other medication problems identified: none Patient education provided: regarding med adherence, MOA of metoprolol Referral pended for follow up management of: N/A Summary- Changes & Recommendations: Med rec completed with patient. Repeat med rec visit in 1 year Inga Jeffrey RPh Clinical Pharmacist - [employer] Medication Therapy Management Clinic 01/23/2024, 2:01 PM documented in this encounter Plan of Treatment Upcoming Encounters Date Type Department Care Team (Late st Contact Info) Description 01/31/2024 11:30 AM EDT Office Visit Cardiology, [facility] [address] [facility] [place] [address] Melo Pena MD [address] [place] [address] 01/31/2024 1:00 PM EDT Imaging Radiology [facility] [address] [place] [address] 03/04/2024 2:30 PM EDT Laboratory Laboratory, [facility] [address] [facility] [phone] [facility] [address] [address] 03/04/2024 3:00 PM EDT Office Visit Cardiology, [facility] [address] [facility] [address] Adelina Riddle CRNP [facility] [address] 03/15/2024 1:00 PM EDT Office Visit Family Practice [address], [place] [address] [place] [address] Chino Leavitt DO [address] [place] [address] 04/03/2024 7:15 AM EDT Cardiac Studies Cardiac Studies, [facility] [address] [facility] [place] [address] 04/17/2024 12:30 PM EDT Office Visit Dermatology [facility] [place] [address] [place] [address] Trisha Pulido, WILMA [address] [place] [address] 11/18/2024 1:00 PM EDT PulmDiagnostic Pulmonary Function Lab Bruce Byron [place] [address] [place] [address] [address], [address] [place] [address] 11/18/2024 1:40 PM EDT Office Visit Pulmonary Medicine Bruce Urmila Matthews [address] [place] [id number] Wander Gonzalez MD [address] [place] [address] Health Maintenance Due Date Last Done Comments [...] this encounter Medical Devices Implanted Type Area Food Concession Manager Device Identifier Shelf Expiration Date Model / Serial / Lot Cath Thermodilution 6fr - [id number] Implanted:Qty: 1 on 11/04/2021 by Kevin Espino DO at [facility] [place] [employer] [id number] 10/13/2023 [id number] / / [id number] Valve Transcath Resilia 29mm - [id number] Implanted:Qty: 1 on 01/16/2024 by Melo Pena MD at [facility] [place] [employer] [id number] 06/19/2025 [id number] / / documented as of this encounter Visit Diagnoses Diagnosis Medication management- Primary Encounter for long-term (current) use of other medications documented in this encounter Advance Directives * [...] patient or by statute hierarchy) Care Teams Knuckle Bender Relationship Specialty Start Date End Date Chino Leavitt DO [address] [place] [address] PCP - General Internal Medicine 01/23/23 documented as of this encounter
--- OUTSIDE RECORDS SUMMARY | 2024-03-18 19:22 | External Medical Summary | Summary of Care ---
Author Name Unknown Organization [facility] Address [address] [facility] [place] [address] Phone [phone] Care Team Providers Care Lens Molder Name Role Phone Chino Leavitt DO Primary Care Provider Encounter Details Date Type Department Care Team (Late st Contact Info) Description 02/09/2024 11:00 AM EDT Scheduled Telephone Care Coordination and Integration [address], [place] [phone] Sena Agrawal, [facility] Health Technology Strategist [address], [place] [phone] Allergies No known active allergiesdocumented as of this encounter (statuses as of 02/09/2024) Medications Medication Sig Dispensed Refills Start Date End Date Status Qpzkezwnyin-Gxcwqdcgo-Uob C-Mn (GLUCOSAMINE CHONDR 500 COMPLEX) Capsule Take 1 Capsule by mouth every morning. Active [place] 3 1000 MG CAPS Take 1 Capsule [...] failure with preserved left ventricular function (HFpEF) ([facility]) Take 1 Tablet by mouth in the morning. 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 03/03/20 23 Anemia 05/26/2022 04/21/2023 documented as of this encounter (statuses as of 02/09/2024) Immunizations Name Administration Dates Next Due COVID-19 mRNA, LNP-s, No Pre serve, 2-Dose Series ([employer]) 03/30/2022,06/23/2021,10/02/2020,09/11 COVID-19, MRNA-LNP, 23-24, P F, 30 MCG/0.3 mL, 12 YRS AND ABOVE, IM ([facility]) 08/14/2023 Covid-19, Mrna, Lnp-s, Pf, [...] Progress Notes * Sena Agrawal Community Health Technology Strategist - 02/09/2024 11:11 AM EDT Telemedicine visit: No Community Health Technology Strategist (DORINA) documentation: CHW f/u call week 3 per LUIS Yost Pt states he is feeling good, has no problems or concerns. Denies fever/ chills, pain and SOB Weighs daily and they are steady Confirmed contact info for CM documented in this encounter Plan of Treatment Upcoming Encounters Date Type Department Care Team (Late st Contact Info) Description 03/04/2024 2:30 PM EDT [facility] [address] [facility] [place] [phone] OzunaАндрей salgado [facility] 132 [facility] [place] [address] 03/04/2024 3:00 PM EDT Office Visit Cardiology, [facility] 132 [place] [address] Adelina Riddle CRNP 132 [place] [address] 03/15/2024 1:00 PM EDT Office Visit Family Practice [address] [place] [address] 293 [place] [address] Chino Leavitt, 293 [place] [address] 04/03/2024 7:15 AM EDT Cardiac Studies Cardiac Studies, [facility] 132 [facility] [place] [address] 04/17/2024 12:30 PM EDT Office Visit Dermatology [facility], [place] [address] [place] [address] Trisha Pulido PA-C [address] [place] [address] 05/16/2024 12:00 PM EDT Hospital Encounter CRS Waiting [facility], Cardiac Recovery Suite Waiting Unit, H [address] [place] [address] Melo Pena MD [address] [place] [address] 05/16/2024 12:00 PM EDT - 05/16/2024 3:00 PM EDT Surgery CRS Waiting [facility], Cardiac Recovery Suite Waiting Unit, H [address] [place] [address] Melo Pena MD [address] [place] [address] PERCUTANEOUS CLOSURE LEFT ATRIAL APPENDAGE IMPLANT 05/16/2024 12:00 PM EDT Office Visit Cardiology [facility] [place] [address] [place] [facility] [place] [address] [place], Cardiac Recovery [facility] [address] [place] [address] 11/18/2024 1:00 PM EDT PulmDiagnostic Pulmonary Function Lab [place] [address] [place] [address] [address], [address] [place] [address] 11/18/2024 1:40 PM EDT Office Visit Pulmonary Medicine [place] [address] [place] [phone] Wander Gonzalez MD [address] [facility] [address] Scheduled Procedures Name Priority Associated Diagnoses Date/Ti [...] this encounter Medical Devices Implanted Type Area Family Development Extension Specialist Device Identifier Shelf Expiration Date Model / Serial / Lot Cath Thermodilution 6fr - [id number] Implanted:Qty: 1 on 11/04/2021 by Kevin Espino DO at [facility] [employer] [id number] 10/13/2023 [id number] / / [id number] Valve Transcath Resilia 29mm - [id number] Implanted:Qty: 1 on 01/16/2024 by Melo Pena MD at [facility] [employer] [id number] 06/19/2025 [id number] / / documented as of this encounter [...] verbally by patient or by statute hierarchy) [email or web address] Care Teams Lens Molder Relationship Specialty Start Date End Date Chino Leavitt DO 293 [place] [address] PCP - General Internal Medicine 01/23/23 documented as of this encounter
--- OUTSIDE RECORDS SUMMARY | 2024-03-18 19:22 | External Medical Summary | Summary of Care ---
Author Name Unknown Organization [facility] Address [address] [place] [address] Phone [phone] Care Team Providers Care Plant Etiologist Name Role Phone Chino Leavitt DO Primary Care Provider [phone] Reason for Visit * Reason Onset Date Comments Test Results 02/05/202402/04 Encounter Details Date Type Department Care Team (Late st Contact Info) Description 02/05/2024 Telephone Family Practice [address] [facility] [place] [address] [place] [address] Chino Leavitt DO [address] [place] [address] Test Results (02/04) Allergies No known active allergiesdocumented as of this encounter (statuses as of 02/05/2024) Medications Medication Sig Dispensed Refills Start Date End Date Status Cvnpwvztkuq-Owzgyfenx-Jds C-Mn (GLUCOSAMINE CHONDR 500 COMPLEX) Capsule Take 1 Capsule by mouth every morning. Active [place] 3 1000 MG CAPS Take 1 Capsule [...] 1 Tablet by mouth in the morning. Active Acetaminophen 500 MG Oral Tablet (Tylenol) [...] preserved left ventricular function (HFpEF) ([facility]) Take 1 Tablet by mouth in the morning. 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 Thank you * Telephone Encounter - Aaliyah Sanchez LPN - 02/05/2024 3:30 PM EDT ----- Message from Chino Leavitt DO sent at 02/05/2024 7:10 AM EDT ----- Patient has hepatic and renal cysts on US. No further imaging necessary. documented in this encounter Plan of Treatment Upcoming Encounters Date Type Department Care Team (Late st Contact Info) Description 03/04/2024 2:30 PM EDT Laboratory Laboratory, [facility] [address] [facility] [phone] Андрей Ozuna [facility] 132 [facility] [place] [address] 03/04/2024 3:00 PM EDT Office Visit Cardiology, [facility] [address] [facility] [address] Adelina Riddle CRNP 132 [place] [address] 03/15/2024 1:00 PM EDT Office Visit Family Practice [address] [place] [address] [address] [place] [address] Chino Leavitt DO [address] [place] [address] 04/03/2024 7:15 AM EDT Cardiac Studies Cardiac Studies, [facility] [address] [facility] [address] 04/17/2024 12:30 PM EDT Office Visit Dermatology [facility] [place] [address] [place] [address] Trisha Pulido PA-C [address] [place] [address] 05/16/2024 Hospital Encounter CRS Waiting [facility], Cardiac Recovery Suite Waiting Unit, H [address] [facility] [place] [id number] Melo Pena MD [address] [facility] [place] [id number] 11/18/2024 1:00 PM EDT PulmDiagnostic Pulmonary Function Lab [facility] [address] [place] [address] [address], [address] [place] [address] 11/18/2024 1:40 PM EDT Office Visit Pulmonary Medicine [place] [address] [place] [phone] Wander Gonzalez MD [address] [place] [address] Scheduled Procedures Name Priority Associated Diagnoses Date/Ti [...] this encounter Medical Devices Implanted Type Area Refrigeration Houseman Device Identifier Shelf Expiration Date Model / Serial / Lot Cath Thermodilution 6fr - [id number] Implanted:Qty: 1 on 11/04/2021 by Kevin Espino DO at [facility] [employer] [id number] 10/13/2023 [id number] / / [id number] Valve Transcath Resilia 29mm - [id number] Implanted:Qty: 1 on 01/16/2024 by Melo Pena MD at [facility] [employer] [id number] 06/19/2025 [id number] / / documented as of this encounter [...] verbally by patient or by statute hierarchy) [email or web address] Care Teams Plant Etiologist Relationship Specialty Start Date End Date Chino Leavitt DO [address] [place] [address] PCP - General Internal Medicine 01/23/23 documented as of this encounter
--- OUTSIDE RECORDS SUMMARY | 2024-03-18 19:22 | External Medical Summary | Summary of Care ---
Author Name Unknown Organization [facility] Address [address] [place] [address] Phone [phone] Care Team Providers Care Ham Pumper Name Role Phone Chino Leavitt DO Primary Care Provider [phone] Reason for Visit * Reason Onset Date Comments Procedure 02/01/2024 Encounter Details Date Type Department Care Team (Late st Contact Info) Description 02/01/2024 Telephone Cardiology [facility] [address] [place] [address] Matthew Francisco CRNP [address] [place] [address] Procedure Allergies No known active allergiesdocumented as of this encounter (statuses as of 02/01/2024) Medications Medication Sig Dispensed Refills Start Date End Date Status Hnrqknulmqr-Esoslxqqi-Pao C-Mn (GLUCOSAMINE CHONDR 500 COMPLEX) Capsule Take 1 Capsule by mouth every morning. 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 03/03/20 23 Anemia 05/26/2022 04/21/2023 documented as of this encounter (statuses as of 02/01/2024) Immunizations Name Administration Dates Next Due COVID-19 mRNA, LNP-s, No Pre serve, 2-Dose Series ([employer]) 03/30/2022,06/23/2021,10/02/2020,09/11 COVID-19, MRNA-LNP, 23-24, P F, 30 MCG/0.3 mL, 12 YRS AND ABOVE, IM ([facility]) 08/14/2023 Covid-19, Mrna, Lnp-s, Pf, B ivalent, [...] Date Smoking Tobacco: Former Cigarettes 1.5 24 965 - 1988 Passive Smoke Exposure: Past [...] encounter Miscellaneous Notes * Telephone Encounter - Adelina Riddle CRNP - 02/01/2024 12:39 PM EDT Shared Decision Making Documentation for Watchman NAME: Josias De Los Santos : 1950 I have spoken to Josias De Los Santos and discussed the Watchman left atrial appendage closure device. Josias De Los Santos has a history of atrial fibrillation oral anticoagulation treatment is recommended. Josias De Los Santos is a suitable candidate for short term anticoagulation therapy but is deemed unable to take prison oral anti coagulation due to: __X___ history of major bleeding, nuisance bleeding noted increased thromboembolic stroke risk, non-compliance with anticoagulation therapy, labile INR, __X___ high fall risk. The risks of continued anticoagulation were discussed, and I recommend the patient for this procedure due to the reasons listed above. DATE: 02/01/2024 PHYSICIAN: ___BENJAMIN Wilkins * Telephone Encounter - Matthew Francisco CRNP - 02/01/2024 12:28 PM EDT Called to arrange Watchman implant. Adelina, You will be seeing him TAVR follow up 03/04/2024. Dr. Pena has seen this patient (Josias De Los Santos, 1950) and feels that he is a good candidate for the Watchman Device (left atrial appendage closure device). The Watchman treats the risk of stroke caused by atrial fibrillation and allows patients to safely discontinue their long term care pharmacist anticoagulation. The device is offered to patients who are poor candidates for long term care pharmacist anticoagulation. Part of the work up requires a physician (other than the implanting physician) to document a statement that they also recommend the patient have the procedure. At your earliest convenience, if you could please complete the form below as it applies to your patient and send back to me, this would meet the requirements. The plan is to have the procedure performed on 05/16/2024. We appreciate your help, and we hope to hear from you if you have any questions or comments or would like to discuss your patient. Thank you for your assistance in this process. Matthew RICO, BENJAMIN Division of Cardiology/[place] [address] : 27-12 02/01/2024 12:33 PM Shared Decision Making Documentation for Watchman NAME: Josias De Los Santos : 1950 I have spoken to Josias De Los Santos and discussed the Watchman left atrial appendage closure device. Josias De Los Santos has a history of atrial fibrillation oral anticoagulation treatment is recommended. Josias De Los Santos is a suitable candidate for short term anticoagulation therapy but is deemed unable to take long term care pharmacist oral anti coagulation due to: history of major bleeding, increased thromboembolic stroke risk, non-compliance with anticoagulation therapy, labile INR, high fall risk. The risks of continued anticoagulation were discussed, and I recommend the patient for this procedure due to the reasons listed above. DATE: PHYSICIAN: documented in this encounter Plan of Treatment Upcoming Encounters Date Type Department Care Team (Late st Contact Info) Description 02/02/2024 1:00 PM EDT Scheduled Telephone Care Coordination and Integration [address] [place] [address] Sena Agrawal, Community Health Music Typographer [address] [place] [address] 03/04/2024 2:30 PM EDT Laboratory Laboratory, [facility] [phone] [facility] [address] 03/04/2024 3:00 PM EDT Office Visit Cardiology, [facility] 132 [facility] [place] [address] Adelina Riddle CRNP 132 [place] [address] 03/15/2024 1:00 PM EDT Office Visit Family Practice [address] [place] [address] 293 [place] [address] Chino Leavitt, 293 [place] [address] 04/03/2024 7:15 AM EDT Cardiac Studies Cardiac Studies, [facility] 132 [facility] [place] [address] 04/17/2024 12:30 PM EDT Office Visit Dermatology [facility] [place] [address] [place] [address] Trisha Pulido PA-C [address] [facility] [place] [address] 05/16/2024 Hospital Encounter CRS Waiting [facility], Cardiac Recovery Suite Waiting Unit, H [address] [place] [address] Melo Pena MD [address] [place] [address] 11/18/2024 1:00 PM EDT PulmDiagnostic [facility]monary Function [facility] [place] [address] [facility] [place] [address] [address], Pft 132 [facility] [place] [address] 11/18/2024 1:40 PM EDT Office Visit Pulmonary [facility] [place] [address] [facility] [place] [phone] Wander Gonzalez MD [address] [facility] [place] [address] Scheduled Procedures Name Priority Associated Diagnoses Date/Ti [...] this encounter Medical Devices Implanted Type Area Electric Motor Tester Assembler Device Identifier Shelf Expiration Date Model / Serial / Lot Cath Thermodilution 6fr - [id number] Implanted:Qty: 1 on 11/04/2021 by Kevin Espino DO at [facility] [employer] [id number] 10/13/2023 [id number] / / [id number] Valve Transcath Resilia 29mm - [id number] Implanted:Qty: 1 on 01/16/2024 by Melo Pena MD at [facility] [employer] [id number] 06/19/2025 [id number] / / documented as of this encounter Visit Diagnoses Diagnosis Permanent atrial fibrillation (HCC)- Primary Atrial fibrillation Permanent atrial fibrillation (HCC)- Primary Atrial fibrillation documented in this encounter Advance [...] verbally by patient or by statute hierarchy) .[employer] Care Teams Ham Pumper Relationship Specialty Start Date End Date Chino Leavitt DO [address] [place] [address] PCP - General Internal Medicine 01/23/23 documented as of this encounter
--- OUTSIDE RECORDS SUMMARY | 2024-03-18 19:22 | External Medical Summary | Summary of Care ---
Author Name Unknown Organization [facility] Address [address] [place] [address] Phone [phone] Care Team Providers Care Director Motion Picture Name Role Phone Chino Leavitt DO Primary Care Provider [phone] Reason for Visit * Reason Onset Date Comments Procedure 02/01/2024 Encounter Details Date Type Department Care Team (Late st Contact Info) Description 02/01/2024 Telephone Cardiology [facility] [address] [place] [address] Matthew Francisco CRNP [address] [place] [address] Procedure Allergies No known active allergiesdocumented as of this encounter (statuses as of 02/01/2024) Medications Medication Sig Dispensed Refills Start Date End Date Status Ibtybjgmpuj-Undlklcir-Ani C-Mn (GLUCOSAMINE CHONDR 500 COMPLEX) Capsule Take 1 Capsule by mouth every morning. Active [place] 3 1000 MG CAPS Take 1 [...] failure with preserved left ventricular function (HFpEF) ([facility]) Take 1 Tablet by mouth in [...] XL)Indications:HFrEF (heart failure with reduced ejection fraction) ([facility]),Longstanding persistent atrial fibrillation (HCC) Take 0.5 [...] mRNA, LNP-s, No Pre serve, 2-Dose Series ([employer]) 03/30/2022,06/23/2021,10/02/2020,09/11 COVID-19, MRNA-LNP, 23-24, P F, 30 MCG/0.3 mL, 12 YRS AND ABOVE, IM ([facility]) 08/14/2023 Covid-19, Mrna, Lnp-s, Pf, B [...] therapy but is deemed unable to take shelter oral anti coagulation due to: __X___ history [...] and allows patients to safely discontinue their dedicated intermodal truck driver anticoagulation. The device is offered to patients who are poor candidates for dedicated intermodal truck driver anticoagulation. Part of the work up requires [...] process. Matthew RICO, BENJAMIN Division of Cardiology/[place] [address] : 27-62 02/01/2024 12:33 PM Shared Decision Making Documentation [...] therapy but is deemed unable to take dedicated intermodal truck driver oral anti coagulation due to: history of [...] Telephone Care Coordination and Integration [address] [place] [address] Sena Agrawal, Community Health Smoking Pipe Mounter [address] [place] [address] 03/04/2024 2:30 PM EDT Laboratory Laboratory, [facility] [phone] [facility] 132 [facility] [address] 03/04/2024 3:00 PM EDT Office Visit Cardiology, [facility] 132 [facility] [place] [address] Adelina Riddle CRNP 132 [facility] [place] [address] 03/15/2024 1:00 PM EDT Office Visit Family Practice [address] [place] [address] 293 [place] [address] Chino Leavitt, 293 [place] [address] 04/03/2024 7:15 AM EDT Cardiac Studies Cardiac Studies, [facility] 132 [facility] [place] [address] 04/17/2024 12:30 PM EDT Office Visit Dermatology [facility] [place] [address] [place] [address] Trisha Pulido PA-C [address] [facility] [place] [address] 05/16/2024 Hospital Encounter CRS Waiting [facility], Cardiac Recovery Suite Waiting Unit, H [address] [place] [address] Melo Pena MD [address] [place] [address] 11/18/2024 1:00 PM EDT PulmDiagnostic Pulmonary Function [facility] [address] [facility] [place] [address] [place], [address]ft 132 [place] [address] 11/18/2024 1:40 PM EDT Office Visit [facility] [place] [address] [facility] [place] [phone] Wander Gonzalez MD [address] [place] [address] Scheduled Procedures Name Priority Associated Diagnoses Date/Ti [...] this encounter Medical Devices Implanted Type Area Disability Counselor Device Identifier Shelf Expiration Date Model / Serial / Lot Cath Thermodilution 6fr - [id number] Implanted:Qty: 1 on 11/04/2021 by Kevin Espino DO at [facility] [employer] [id number] 10/13/2023 [id number] / / [id number] Valve Transcath Resilia 29mm - [id number] Implanted:Qty: 1 on 01/16/2024 by Melo Pena MD at [facility] [employer] [id number] 06/19/2025 [id number] / / documented as of this encounter [...] verbally by patient or by statute hierarchy) [email or web address] Care Teams Director Motion Picture Relationship Specialty Start Date End Date Chino Leavitt DO [address] [place] [address] PCP - General Internal Medicine 01/23/23 documented as of this encounter
--- OUTSIDE RECORDS SUMMARY | 2024-03-18 19:22 | External Medical Summary | Summary of Care ---
Author Name Unknown Organization [facility] Address [address] [place] [address] Phone [phone] Care Team Providers Care Trouble Dispatcher Name Role Phone Chino Leavitt DO Primary Care Provider [phone] Reason for Visit * Reason Onset Date Comments Nutritional Services Documentation 02/07/2024 Encounter Details Date Type Department Care Team (Late st Contact Info) Description 02/07/2024 2:00 PM EDT Scheduled Telephone Nutrition Services [address] [facility], [place] [address] [place], [place] [id number] Ada Rangel RDN [address] [place] [address] Arrived Allergies No known active allergiesdocumented as of this encounter (statuses as of 02/07/2024) Medications Medication Sig Dispensed Refills Start Date End Date Status Oulqhkmpehi-Nwippfriv-Imq C-Mn (GLUCOSAMINE CHONDR 500 COMPLEX) Capsule Take 1 Capsule by mouth every morning. Active [place] 3 1000 MG CAPS Take 1 Capsule [...] function (HFpEF) ([facility]) Take 1 Tablet by mouth in the morning. 90 Tablet 3 4 Active Spironolactone 25 MG Oral Tablet (Aldactone)Indications:He art failure with preserved left ventricular function (HFpEF) ([facility]) Take 1 Tablet by mouth [...] failure with reduced ejection fraction) ([facility]),Longstanding persistent atrial fibrillation (HCC) Take [...] as of this encounter (statuses as of 02/07/2024) Active Problems Problem Noted Date Diagnosed Date [...] as of this encounter (statuses as of 02/07/2024) Resolved Problems Problem Noted Date Diagnosed Date Resolved Date COPD with emphysema 05/26/2022 03/03/20 23 Anemia 05/26/2022 04/21/2023 documented as of this encounter (statuses as of 02/07/2024) Immunizations Name Administration Dates Next Due COVID-19 mRNA, LNP-s, No Pre serve, 2-Dose Series (TicketStumbler) 03/30/2022,06/23/2021,10/02/2020,09/11 COVID-19, MRNA-LNP, 23-24, P F, 30 MCG/0.3 mL, 12 YRS AND ABOVE, IM (Geneluxirnaty) 08/14/2023 Covid-19, Mrna, Lnp-s, Pf, B ivalent, [...] encounter Miscellaneous Notes * Telephone Encounter - Ada Rangel RDN - 02/07/2024 2:13 PM EDT [address] [place] [address] Dietitian Phone Outreach Reached out to patient to check in on nutrition status and offer nutrition information on HTN/offernutrition services through [address] [place] [address]. Result of call: Patient appreciative of outreach call, but denies any issues at this time. Patient without any additional questions/concerns at this time. Patient verbalized understanding to call dietitian at [facility] if nutrition questions/concerns arise. Electronically signed by: Ada Rangel RDN, NUTRITION SERVICES [address] [place] [address] documented in this encounter Plan of Treatment Upcoming Encounters Date Type Department Care Team (Late st Contact Info) Description 03/04/2024 2:30 PM EDT Laboratory Laboratory, [facility] [address] [facility] [phone] OzunaАндрей salgado [facility] [address] [place] [address] 03/04/2024 3:00 PM EDT Office Visit Cardiology, [facility] [address] [place] [address] Adelina Riddle CRNP 132 [place] [address] 03/15/2024 1:00 PM EDT Office Visit Family Practice [address] [place] [address] [address] [place] [address] Chino Leavitt DO [address] [place] [address] 04/03/2024 7:15 AM EDT Cardiac Studies Cardiac Studies, [facility] [address] [place] [address] 04/17/2024 12:30 PM EDT Office Visit Dermatology [facility] [address] [place] [address] Trisha Pulido PA-C [address] [place] [address] 05/16/2024 12:00 PM EDT Hospital Encounter CRS Waiting [facility], Cardiac Recovery Suite Waiting Unit, H [address] [facility] [place] [address] Melo Pena MD [address] [facility] [address] 05/16/2024 12:00 PM EDT - 05/16/2024 3:00 PM EDT Surgery CRS Waiting [facility], Cardiac Recovery Suite Waiting Unit, H [address] [place] [address] Melo Pena MD [address] [place] [address] PERCUTANEOUS CLOSURE LEFT ATRIAL APPENDAGE IMPLANT 05/16/2024 12:00 PM EDT Office Visit Cardiology [facility] [address] [facility] [place] [address] [place] [facility] [address] [facility] [place] [address] 11/18/2024 1:00 PM EDT PulmDiagnostic Pulmonary Function Lab [facility] [address] [place] [address] [place], [address] [place] [address] 11/18/2024 1:40 PM EDT Office Visit Pulmonary Medicine [facility] [address] [place] [phone] Wander Gonzalez MD [address] [place] [facility] [place] [address] Scheduled Procedures Name Priority Associated Diagnoses Date/Ti [...] this encounter Medical Devices Implanted Type Area Health And Safety Representative Device Identifier Shelf Expiration Date Model / Serial / Lot Cath Thermodilution 6fr - [id number] Implanted:Qty: 1 on 11/04/2021 by Kevin Espino DO at [facility] [employer] [id number] 10/13/2023 [id number] / / [id number] Valve Transcath Resilia 29mm - [id number] Implanted:Qty: 1 on 01/16/2024 by Melo Pena MD at [facility] [employer] [id number] 06/19/2025 [id number] / / documented as of this encounter [...] verbally by patient or by statute hierarchy) [email or web address] Business Plan Care Teams Trouble Dispatcher Relationship Specialty Start Date End Date Chino Leavitt DO [address] [place] [address] PCP - General Internal Medicine 01/23/23 documented as of this encounter
--- OUTSIDE RECORDS SUMMARY | 2024-03-18 19:22 | External Medical Summary | Summary of Care ---
Author Name Unknown Organization [facility] Address [address] [place] [address] Phone [phone] Care Team Providers Care Feed House Supervisor Name Role Phone Chino Leavitt DO Primary Care Provider [phone] Reason for Visit * Reason Comments Follow Up s/p TAVR 01/16/24 Encounter Details Date Type Department Care Team (Late st Contact Info) Description 01/31/2024 11:30 AM EDT Office Visit [facility], [facility] [address] Melo Pena MD [address] [place] [address] S/P TAVR (transcatheter aortic valve replacement)*; Severe aortic stenosis; Persistent atrial fibrillation (HCC); Heart failure with improved ejection fraction (HFimpEF) (HCC) Allergies No known active allergiesdocumented as of this encounter (statuses as of 01/31/2024) Medications Medication Sig Dispensed Refills Start Date End Date Status Vlxyxklrigm-Nijedojrj-Epu C-Mn (GLUCOSAMINE CHONDR 500 COMPLEX) Capsule Take 1 Capsule by mouth every morning. Active [place] 3 1000 MG CAPS Take 1 Capsule [...] as of this encounter (statuses as of 01/31/2024) Active Problems Problem Noted Date Diagnosed Date [...] as of this encounter (statuses as of 01/31/2024) Resolved Problems Problem Noted Date Diagnosed Date Resolved Date COPD with emphysema 05/26/2022 03/03/20 23 Anemia 05/26/2022 04/21/2023 documented as of this encounter (statuses as of 01/31/2024) Immunizations Name Administration Dates Next Due COVID-19 mRNA, LNP-s, No Pre serve, 2-Dose Series (Nibu) 03/30/2022,06/23/2021,10/02/2020,09/11 COVID-19, MRNA-LNP, 23-24, P F, 30 [...] Smoking Tobacco: Former Cigarettes 1.5 24 1 - 1988 Passive Smoke Exposure: Past Smokeless [...] Sign Reading Time Taken Comments Blood Pressure 136/96 01/31/2024 11:32 AM EDT Pulse 88 01/31/2024 11:32 AM EDT Temperature - - Respiratory Rate 20 01/31/2024 11:3 2 AM EDT Oxygen Saturation - - Inhaled Oxygen Concentration - - Weight 117.5 kg (259 lb 1.6 oz) 024 11:32 AM EDT Height - - Body Mass Index 38.26 01/23/2024 2:53 PM EDT documented in this [...] as of this encounter Progress Notes * Melo Pena MD - 01/31/2024 12:08 PM EDT I have reviewed the advanced practitioner's documentation on the date of service referenced in note, and I agree with, and take responsibility for the plan of care. 73 year old male with recent TAVR. Doing well. Afib on eliquis. Nuisance bleeding. Interested in watchman. Will pass the information to the watchman coordinator for scheduling. Melo Pena MD MPH Interventional Cardiology Pager: [phone] 01/31/24 12:22 PM * Amanda Rausch CRNP - 01/31/2024 11:30 AM EDT Cardiology Valve Clinic Note 01/31/2024 Primary Welcome Hostess: Avni Pruitt PA-C Valve Clinic: 1 Week Follow Up Problem List: 1.Severe Aortic Stenosis -s/p TAVR # 29mm Cui Robert S3 Ultra resilia valve 01/16/2024 2.Persistent [...] weakness complicated by emphysema; ). Follows with [facility] HPI: Josias De Los Santos is a 73 year old male with a history of Patient underwent a successful transfemoral implantation of a # 29mm Cui Robert S3 Ultra resilia valve on 01/16/[address] Pena. Post-op ECG showed AF with slow ventricular response, rate 55. Approximately 2 hours after procedure, patient had witnessed altered mental status with concurrent bradycardia in 20-30s. On evaluation, patient had returned back to baseline mentation with ECG showing AF with slow ventricular response, rate 50s. Several hours later, patient had another episode of altered mental status with noted 7-second sinus pause on telemetry. The decision was made to place a temp wire paced at 50beats per minute with some pacing spikes overnight. Pacer turned down to 30 beats per minute and patient did not requiring pacing for 24 hours. Discharged on 01/18/2024 with a Zio monitor. Metoprolol decreased to 25 mg daily. Here today for 1 week follow up s/p TAVR. Also here to discuss Watchman Device. He is feeling well and does not have any cardiovascular concerns. Feels he has more energy. No fevers/chills. No drainage from incision sites. Mailed his monitor back a week ago. Denies chest pain, palpitations, and lightheadedness/dizziness. No falls/syncope. No changes in appetite, nausea, or vomiting. Denies shortness of breath, PND, and swelling. Denies abnormal bleeding.Denies fevers and chills. REVIEW OF SYSTEMS: See HPI for pertinent [...] Current Outpatient Medications Medication Sig Dispense Refill Jflgtnjxyeq-Djxnxoowh-Gvu C-Mn (GLUCOSAMINE CHONDR 500 COMPLEX) Capsule Take 1 Capsule by mouth every morning. [place] 3 1000 MG CAPS Take 1 Capsule [...] daily x 2 weeks 40 g 0 Diclofenac Sodium 1 % External Gel (Voltaren) Apply topically to affected area. Apply to right hip and knee Atorvastatin Calcium 40 MG Oral Tablet (Lipitor) Take 1 Tablet by mouth in the morning. 90 Tablet 3 Tamsulosin HCl 0.4 MG Oral Capsule (Flomax) Take 1 Capsule by mouth in the morning. (Patient takingdifferently: Take 1 Capsule by mouth every evening.) 90 Capsule 3 Metoprolol Succinate ER 50 MG Oral Tablet [...] Tablet by mouth at bedtime as needed. metOLazone 5 MG Oral Tablet (Zaroxolyn) Take 1 Tablet by mouth as needed for Dyspnea. As needed average is about once every 10 days per patient No current facility-administered medications for this visit. 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 Nonrheumatic aortic valve stenosis Pulmonary arterial hypertension (HCC) Sleep apnea, obstructive Past Surgical History: Procedure Laterality Date CORONARY ANGIOGRAPHY W/LEFT HEART CATH N/A 11/27/2023 CORONARY ANGIOGRAPHY W/LEFT HEART CATH performed by Melo Pena MD at [facility] CORONARY ANGIOGRAPHY W/RIGHT+LEFT CATH 11/04/2021 CORONARY ANGIOGRAPHY W/RIGHT+LEFT CATH performed by Kevin Espino DO at [facility] INSERT HEART ELECTRODE, SNGL CHAMBR Right 01/16/2024 TEMPORARY PACEMAKER (SINGLE LEAD) performed by Melo Pena MD at [facility] [place] CYSTO W/INSERT URETERAL STENT Left 2021 REPLACE AORTIC VALVE, PERCUTANEOUS FEMORAL N/A 01/16/2024 REPLACE AORTIC VALVE, PERCUTANEOUS FEMORAL performed by Melo Pena MD at [facility] REPLACE AORTIC VALVE, PERCUTANEOUS FEMORAL N/A 01/16/2024 REPLACE AORTIC VALVE, PERCUTANEOUS FEMORAL performed by Eugene Joe MD at [facility] Family History Problem Relation Name Age of [...] date: 1966 Quit date: 1988 Years since quittin.4 Passive exposure: Past Smokeless tobacco: Never Vaping Use Vaping status: Never Used Substance and Sexual Activity Alcohol use: Yes Comment: Rarely, maybe 2 drinks at most per week Drug use: Never Sexual activity: Yes Partners: Female Other Topics Concern Not on file Social History Narrative 1 dogs and 4 cats No mold [employer] [facility] air conditioning Social Determinants of Health Financial Resource Strain: Not on file Food Insecurity: No Food Insecurity (01/19/2024) Hunger Vital Sign Worried About Running Out of Food in the Last Year: Never true Ran Out of Food in the Last Year: Never true Transportation Needs: Not on file Physical Activity: Not on file Stress: Not on file Social Connections: Not on file Intimate Partner Violence: Not on file Housing Stability: Low Risk (01/03/2024) Re[facility] from [facility], [facility] Housing Stability Unstable Housing in the Last Year: Not on file PHYSICAL EXAM: BP 136/96 (BP Site: Left Arm, BP Position: Sitting, BP Cuff Size: Large) | Pulse 88 | Resp 20 | Wt 117.5 kg (259 lb 1.6 oz) | BMI 38.26 kg/m | BSA 2.39 m Wt Readings from Last 3 Encounters: 01/31/24 117.5 kg (259 lb 1.6 oz) 01/23/24 116.9 kg (257 lb 11.2 oz) 01/18/24 115 kg (253 lb 8.5 oz) General: No acute distress. A+Ox3. HEENT: [...] drainage DATA: Labs & Imaging Reviewed Below: EKG 1 week s/p TAVR 01/31/2024 AFIB 60 bpm PVCs POD #1 s/p TAVR 01/17/2024 S/P TAVR [...] aortic regurgitation isseen. POST TAVR: # 29mm Cui Robert S3 Ultra resilia valve Aortic valve [...] Compared to study dated September 10, 2021 ([facility] medical record), mild LV systolic dysfunction, severe [...] 2. S/P TAVR (transcatheter aortic valve replacement) -Doing well s/p TAVR -Continue aspirin 81 mg indefinitely. -Incision's are healing well without concern for infection. -Echocardiogram POD : Mild paravalvular aortic regurgitation. No stenosis. -EKG completed today. No evidence of LBBB or complete heart block. -BP controlled. -Plan to discuss cardiac rehab at the 1 month follow up visit. -SBE Prophylaxis: No routine dental work should be completed in the first 6 months after TAVR. However, if an acute issue arises, patient is to alert the valve team. -Antibiotics are needed for all dental work: Amoxicillin 2g- Take 4 capsules 1 hour prior to any dental work -KCCQ-12 Questionnaire: N/A. *Return to [facility] on 03/04/24 with labs same day. Echocardiogram 1 month s/p TAVR scheduled for 04/03/2024. *General Cardiology Return in 6 months. 3. 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 Repeat echocardiograms in January show his EF improved to 55-59% -Does not appear hypervolemic on exam. Although fluid status is difficult to assess due to body habitus. -Continue Torsemide, Spironolactone, and Potassium supplements. -Consider adding Jardiance to this regimen in the future. -Taking Metolazone as needed once every 10 days. -CHF education reinforced. 4. Persistent atrial fibrillation (HCC) -Asymptomatic. Discussed that he likely would not receive much benefit from an ablation because he is symptomatic. -Post op TAVR he developed some altered mental status with low heart rates with a 7 sec pause in NSR.He mailed his zio monitor back last week. -EKG today shows atrial fibrillation with slow ventricular response and PVC. Continue Metoprolol Succinate 25 mg daily for now. -CHADSVASC 4 (age, CHF, CAD)Anticoagulated with Eliquis 5 mg BID -Watchman Device discussed today. Nuisance bleeding noted. Patient care was discussed/coordinated with Dr. Pena. The patient agrees to the above plan and will call with additional questions or concerns. All questions were answered to the patients satisfaction. ER with all emergencies advised. BENJAMIN Steiner [facility], [address] [place] [address] I spent a total of 55 minutes on the date of service in preparation, delivery, and documentation ofthe care provided to Josias De Los Santos excluding any time spent in the performance of separately billed services. This chart was completed in part utilizing [employer] Speech Voice Recognition Software. Grammatical errors, random [...] documented in this encounter Nursing Notes * Anamaria Magana CMA - 01/31/2024 11:30 AM EDT Chief Complaint Patient presents with Follow Up s/p TAVR 01/16/24 Examination Room: 16 Name: Josias De Los Santos Date of : (1950). Reason for Visit: f/u TAVR Interim Hospitalization(s): [facility] Problems/Concerns: denies Chest Pain/SOB: denies [facility] Discussed: Not applicable [facility] is a way you can talk to [...] Telephone Care Coordination and Integration [address] [place] [address] Sena Agrawal, [facility] Ammunition Storekeeper [address] [place] [address] 03/04/2024 2:30 PM EDT Laboratory Laboratory, [facility] [address] [facility] [place] [phone] Андрей Ozunas 132 [facility] [place] [address] 03/04/2024 3:00 PM EDT Office Visit Cardiology, [facility] [address] [facility] [place] [address] Adelina Riddle CRNP [facility] [address] 03/15/2024 1:00 PM EDT Office Visit Family Practice [address] [place] [address] [address] [place] [address] Chino Leavitt, 293 [place] [address] 04/03/2024 7:15 AM EDT Cardiac Studies Cardiac Studies, [facility] [address] [facility] [place] [address] 04/17/2024 12:30 PM EDT Office Visit Dermatology [facility] [place] [address] [place] [address] Trisha Pulido PA-C [address] [facility] [place] [address] 11/18/2024 1:00 PM EDT PulmDiagnostic Pulmonary Function Lab [facility] [address] [address] [place], [address] [facility] [place] [address] 11/18/2024 1:40 PM EDT Office Visit Pulmonary Medicine [facility] [address] [phone] Wander Gonzalez MD [address] [place] [address] Scheduled Orders Name Type Priority Associated Diagnoses Orde r Schedule EKG EKG Routine Ordered: 01/30 Health Maintenance Due Date Last Done Comments [...] this encounter Medical Devices Implanted Type Area Insurance Claim Approver Device Identifier Shelf Expiration Date Model / Serial / Lot Cath Thermodilution 6fr - [id number] Implanted:Qty: 1 on 11/04/2021 by Kevin Espino DO at [facility] [employer] [place] [id number] 10/13/2023 [id number] / / [id number] Valve Transcath Resilia 29mm - [id number] Implanted:Qty: 1 on 01/16/2024 by Melo Pena MD at [facility] [employer] [id number] 06/19/2025 [id number] / / documented as of this encounter Visit Diagnoses Diagnosis S/P TAVR (transcatheter aortic valve replacement)- Primary Heart valve replaced by other means Severe aortic stenosis Aortic valve disorders Persistent atrial fibrillation (HCC) Atrial fibrillation Heart failure with improved ejection fraction (HFimpEF) (HCC) documented in this encounter Advance Directives * [...] patient or by statute hierarchy) Care Teams Feed House Supervisor Relationship Specialty Start Date End Date Chino Leavitt DO [address] [facility] [place] [address] PCP - General Internal Medicine 01/23/23 documented as of this encounter
--- OUTSIDE RECORDS SUMMARY | 2024-03-18 19:22 | External Medical Summary | Summary of Care ---
Author Name Unknown Organization [facility] Address [address] [facility] [place] [address] Phone [phone] Care Team Providers Care School Bus Inspector Name Role Phone Chino Leavitt DO Primary Care Provider [phone] Reason for Visit * Reason Onset Date Comments Medication Refill 01/31/2024 Encounter Details Date Type Department Care Team (Late st Contact Info) Description 01/31/2024 Refill Cardiology, [facility] 132 [facility] [place] [address] Amanda Rausch CRNP [address] [facility] [place] [address] S/P TAVR (transcatheter aortic valve replacement)* Allergies No known active allergiesdocumented as of this encounter (statuses as of 02/02/2024) Medications Medication Sig Dispensed Refills Start Date End Date Status Vxgucqszrtm-Kibnqekmq-Ss t C-Mn (GLUCOSAMINE CHONDR 500 COMPLEX) Capsule Take 1 Capsule by mouth every morning. Active [place] 3 1000 MG CAPS Take 1 Capsule [...] dental procedures. 4 Capsule 5 4 Active Amoxicillin 500 MG Oral Capsule (Amoxil) Take 4 tablets 1 hour prior to dental procedures. 30 Capsule 4 024 Discontin ued(Refil l) documented as of this encounter (statuses as [...] mRNA, LNP-s, No Pre serve, 2-Dose Series (TimZon) 03/30/2022,06/23/2021,10/02/2020,09/11 COVID-19, MRNA-LNP, 23-24, P F, 30 [...] encounter Miscellaneous Notes * Telephone Encounter - Madeleine Pena MD - 02/02/2024 5:04 PM EDTSigned Prescriptions: Disp Refills Amoxicillin 500 MG Oral Capsule (Amoxil) 4 Caps*5 Sig: Take 4 tablets 1 hour prior to dental procedures. Authorizing Provider: MADELEINE PENA * Telephone Encounter - Sheela Desai CMA - 02/01/2024 7:45 AM EDTPending Prescriptions: Disp Refills Amoxicillin 500 MG Oral Capsule (Amoxil) 4 Caps*5 Sig: Take 4 tablets 1 hour prior to dental procedures. * Telephone Encounter - Sheela Desai CMA - 02/01/2024 7:44 AM EDT Did you pend patient's preferred pharmacy and medication before forwarding?yes Pharmacy: [facility] [id number] Pending Prescriptions: Disp Refills Amoxicillin 500 MG Oral Capsule (Amoxil) 4 Caps*5 Sig: Take 4 tablets 1 hour prior to dental procedures. Last Visit: 01/31/2024 (in office), Visit date not found (telemedicine) Next Visit: 03/04/2024 If no future appointments scheduled, and last appointment is greater than a year ago, please schedule patient for a follow-up appointment Last date the medication was ordered: 01-31-2024 Is this request for a controlled substance?No Urine Drug Screen:No results found for this or any previous visit. Patient Phone Numbers Labs: Lab Results Component Value Date/Time CREAT 1.0 01/18/2024 04:27 AM CREAT 1.38 08/08/2023 12:00 AM POTASSIUM 3.8 01/18/2024 04:27 AM POTASSIUM 3.1 (A) 08/08/2023 12:00 AM LDLCALC 34 08/14/2023 04:16 PM ALT 41 01/12/2024 01:47 PM documented in this encounter Plan of Treatment Upcoming Encounters Date Type Department Care Team (Late st Contact Info) Description 03/04/2024 2:30 PM EDT Laboratory Laboratory, [facility] [phone] Андрей Ozuna [facility] [address] 03/04/2024 3:00 PM EDT Office Visit Cardiology, [facility] 132 [place] [address] Adelina Riddle CRNP 132 [facility] [place] [address] 03/15/2024 1:00 PM EDT Office Visit Family Practice [address] [place] [address] [address] [place] [address] Chino Leavitt DO 293 [place] [address] 04/03/2024 7:15 AM EDT Cardiac Studies Cardiac Studies, [facility] 132 [place] [place] [address] 04/17/2024 12:30 PM EDT Office Visit Dermatology [facility] [address] [place] [address] Trisha Pulido PA-C [address] [place] [address] 05/16/2024 Hospital Encounter [place] [facility] Card[facility] Suite Waiting Unit, H [address] [facility] [place] [address] Madeleine Pena MD [address] [facility] [place] [id number] 11/18/2024 1:00 PM EDT PulmDiagnostic Pulmonary Function Lab [facility] [address] [place] [address] [address], [address] Grazyna Sandeep [place] [address] 11/18/2024 1:40 PM EDT Office Visit Pulmonary Medicine Marlena Irvingwn [address] [place] [phone] Wander Gonzalez MD [address] [place] [address] Scheduled Procedures Name Priority Associated Diagnoses Date/Ti [...] this encounter Medical Devices Implanted Type Area Master Sheet Clerk Device Identifier Shelf Expiration Date Model / Serial / Lot Cath Thermodilution 6fr - [id number] Implanted:Qty: 1 on 11/04/2021 by Kevin Espino DO at [facility] [employer] [id number] 10/13/2023 [id number] / / [id number] Valve Transcath Resilia 29mm - [id number] Implanted:Qty: 1 on 01/16/2024 by Madeleine Pena MD at [facility] [employer] [id number] 06/19/2025 [id number] / / documented as of this encounter Visit Diagnoses Diagnosis S/P TAVR (transcatheter aortic valve replacement)- Primary Heart valve replaced by other means Permanent atrial fibrillation (HCC)- Primary Atrial fibrillation [...] verbally by patient or by statute hierarchy) [email or web address] Care Teams School Bus Inspector Relationship Specialty Start Date End Date Chino Leavitt DO [address] [place] [address] PCP - General Internal Medicine 01/23/23 documented as of this encounter
--- OUTSIDE RECORDS SUMMARY | 2024-03-18 19:23 | External Medical Summary | Summary of Care ---
Author Name Unknown Organization [facility] Address [address] [place] [address] Phone [phone] Care Team Providers Care Database Manager Name Role Phone Yolie Leavitt DO Primary Care Provider [phone] Reason for Visit * Reason Onset Date Comments Hospital Follow-Up 01/17/2024 Encounter Details Date Type Department Care Team (Late st Contact Info) Description 01/17/2024 Telephone Family Practice [address] [place] [address] [place] [address] Yolie Leavitt DO [address] [place] [address] Hospital Follow-Up Allergies No known active allergiesdocumented as of this encounter (statuses as of 01/18/2024) Medications Medication Sig Dispensed Refills Start Date End Date Status Aspirin 81 MG Oral Tablet Chewable Chew & swallow 1 Tablet by mouth in the morning. 30 Tablet 11 01/18/20 24 Active Metoprolol Succinate ER 50 MG [...] 2024. 180 Tablet 3 01/19/20 24 Active Ytybpohobdt-Gempwjtbw-Hr t C-Mn (GLUCOSAMINE CHONDR 500 COMPLEX) Capsule Take 1 Capsule by mouth every morning. 0 Suspended [place] 3 1000 MG CAPS Take 1 Capsule by mouth daily. 0 Suspended Multiple Vitamin (MULTI-DAY VITAMINS) Tablet Take 1 Tab by mouth daily. 0 Suspended Albuterol Sulfate HFA 108 (90 Base) MCG/ACT Inhalation Aerosol Solution as needed. 0 09/28/19 22 Suspended Co Q 10 10 MG Oral Capsule Take by mouth 1 Capsule daily . 0 Suspended B-12 500 MCG Oral Tablet Take 1 Capsule by mouth in the morning. 0 Suspended BiPAP every night at bedtime. 18/7 cm 0 Suspended Ascorbic Acid 250 MG Oral Tablet Take 1 Tablet by mouth in the morning. 0 09/15/19 23 Suspended Acetaminophen 500 MG Oral Tablet (Tylenol) Take 2 Tablets by mouth 2 times a day as needed. 0 08/31/20 21 Suspended DULoxetine HCl 60 MG Oral Capsule Delayed Release Particles Take 1 Capsule by mouth every evening. 0 Suspended Torsemide 20 MG Oral Tablet (Demadex)Indications:Pul monary hypertension (HCC) TAKE 2 TABLETS DAILY FIRST THING IN THE MORNING 180 Tablet 3 04/08/20 23 Suspended Additional Information Iron 325 (65 Fe) MG Oral Tablet Take 1 Tablet by mouth in the morning. 0 08/14/20 23 Suspended NATURAL SUPPLEMENT Take 20 mg by mouth in the morning and 20 mg before bedtime. CBD oil. 0 Suspended Potassium Chloride Christina ER 10 MEQ Oral Tablet Extended ReleaseIndications:Heart failure with preserved left ventricular function (HFpEF) (HCC) Take 1 Tablet by mouth in the morning. 90 Tablet 3 09/25/19 24 Suspended Additional Information Spironolactone 25 MG Oral Tablet (Aldactone)Indications:H eart failure with preserved left ventricular function (HFpEF) (HCC) Take 1 Tablet by mouth in the morning. 90 Tablet 3 09/25/19 24 Suspended Additional Information Triamcinolone Acetonide 0.1 % External Cream (Aristocort) Apply to affected area on forearm twice daily for up to two weeks if needed for itching 80 g 5 10/18/19 24 Suspended Additional Information Fluorouracil 5 % External Cream (Efudex) Apply to site on the right cheek twice daily x 2 weeks 40 g 0 10/25/19 24 Suspended Additional Information metOLazone 5 MG Oral Tablet (Zaroxolyn)Indications:C entrilobular emphysema (HCC),Pulmonary hypertension (HCC),Diaphragm dysfunction Take 1 Tablet by mouth as needed for Dyspnea. As needed average is about once every 10 days per patient 0 11/27/19 24 Suspended Diclofenac Sodium 1 % External Gel (Voltaren) Apply topically to affected area. Apply to right hip and knee 0 Suspended Atorvastatin Calcium 40 MG Oral Tablet (Lipitor)Indications:Pur e hypercholesterolemia Take 1 Tablet by mouth in the morning. 90 Tablet 3 12/13/19 24 Suspended Additional Information Tamsulosin HCl 0.4 MG Oral Capsule (Flomax) Take 1 Capsule by mouth in the morning. 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 03/03/20 23 Anemia 05/26/2022 04/21/2023 documented as of this encounter (statuses as of 01/18/2024) Immunizations Name Administration Dates Next Due COVID-19 mRNA, LNP-s, No Pre serve, 2-Dose Series (Nevigo) 03/30/2022,06/23/2021,10/02/2020,09/11 COVID-19, MRNA-LNP, 23-24, P F, 30 MCG/0.3 mL, 12 YRS AND ABOVE, IM [facility] 08/14/2023 Covid-19, Mrna, Lnp-s, Pf, B [...] Date Recorded PHQ Adult Total Score 0 08/13/2023 Hunger Vital Sign Answer Date Recorded Within the past 12 months, y ou worried that your food would run out before you got the money to buy more. Never true 08/13/20 23 Within the past 12 months, t he food you bought just didn't last and you didn't have money to get more. Never true 08/13/2023 Sex and Gender Information Value Date Recorded [...] encounter Miscellaneous Notes * Telephone Encounter - Taylor Carlos OSA - 01/18/2024 10:33 AM EDT Appt scheduled 01.23.24, pt aware * Telephone Encounter - Aaliyah Meade OSA - 01/17/2024 2:48 PM EDT Patient Name: JOSAIS DE LOS SANTOS([id number]) Sex: Male : 1950 PCP: YOLIE LEAVITT Center: [facility] [place] Types of orders made on 01/17/2024: Communication, Diet, EKG, IP Post Discharge , Lab, Medications Order Date:01/17/2024 Ordering User:ALMA CHAMORRO [[id number]] Attending Provider:Melo Pena MD [[id number]] Authorizing Provider: Alma Carrington DO [[id number]] [facility][[id number]] Order Specific Information Order: RETURN APPT [CUSTOM: [id number]] Order #: [id number]: 1 Priority: Routine Class: Nursing Unit Department (Single Entry) -> Family Practice Appt Needed Within: (Specify # of Days, Weeks, Months) -> 3 Days Cmt: 01/22/2024 Provider -> YOLIE LEAVITT Released on: 01/17/2024 2:35 PM Priority: Routine Class: Nursing Unit Department (Single Entry) -> Family Practice Appt Needed Within: (Specify # of Days, Weeks, Months) -> 3 Days Cmt: 01/22/2024 Provi viktoriya -> YOLIE LEAVITT Released on: 01/17/2024 2:35 PM documented in this encounter Plan of Treatment Upcoming Encounters Date Type Department Care Team (Late st Contact Info) Description 01/23/2024 2:40 PM EDT Pharmacy Family Practice 65 [facility] 293 [place] [address] College, Pharmacist [address] [address] 01/23/2024 3:00 PM EDT Office Visit Family Practice 65 [facility] [address] [place] [address] Yolie Leavitt, [address] [place] [address] 01/24/2024 3:00 PM EDT Office Visit [facility] 132 [facility] [place] [address] Adelina Riddle CRNP 132 [facility] [place] [address] 01/31/2024 11:30 AM EDT Office Visit Cardiology [facility] 132 [facility] [place] [address] Melo Pena MD [address] [place] [address] 03/04/2024 2:30 PM EDT Laboratory Laboratory, [facility] 132 [facility] [place] [address] [facility] 132 [facility], [place] [address] 03/04/2024 3:00 PM EDT Office Visit Cardiology, [facility] [address] Adelina Riddle CRNP 132 [place] [address] 03/15/2024 1:00 PM EDT Office Visit Family Practice [address] [place] [address] [address] [place] [address] Yolie Leavitt, [address] [place] [address] 04/03/2024 7:15 AM EDT Cardiac Studies Cardiac Studies, [facility] [address] 04/17/2024 12:30 PM EDT Office Visit [facility]at[facility] [place] [facility] [facility] [address] Trisha Pulido PA-C 3[address] [facility] [place] [address] 11/18/2024 1:00 PM EDT PulmDiagnostic Pulmonary Function Lab [facility] [place] [address] [place] [address] [address], [address] [place] [address] 11/18/2024 1:40 PM EDT Office Visit Pulmonary Medicine Urmila Irving [address] [place] [address] Wander Gonzalez MD [address] [place] [address] Health Maintenance Due Date Last Done Comments Hepatitis C Screening 1968 Depression Screening 08/13/2024 08/13/2023 O2 ASSESSMENT COMPLETED IN PAST YEAR FOR COPD 01/15/2025 01/16/2024 DTaP,Tdap,and Td Vaccines (3 - Td or Tdap) 01/23/2033 01/23/2023, 12/18/2012, 01/01/2003 Pneumococcal Vaccine: 65+ Years Completed 12/25/2017, 12/19/2014, 12/19/2013 Zoster Vaccines Completed 07/03/2018, 04/05, 04/14/2009 Colonoscopy Discontinued 11/18/2020 Colorectal Cancer Screening Discontinued Alpha-1 Antitrypsin Completed 06/07/2022 Influenza Vaccine (FLU shot) Completed 05/29/2023, 05/26/2022, 05/26/2022, Additional history exists COVID-19 Vaccine Completed 08/14/2023, , 03/30/2022, Additional history exists Cologuard Discontinued Fecal Occult [...] this encounter Medical Devices Implanted Type Area Mailing Specialist Device Identifier Shelf Expiration Date Model / Serial / Lot Cath Thermodilution 6fr - [id number] Implanted:Qty: 1 on 11/04/2021 by Kevin Espino DO at [facility] [employer] CURRY [id number] 10/13/2023 [id number] / / [id number] Valve Transcath Resilia 29mm - [id number] Implanted:Qty: 1 on 01/16/2024 by Melo Pena MD at [facility] [employer] [id number] / / documented as of this encounter Advance Directives Latest Code Status on File Code Status Date Activated Date Inactivated Comments Full Code 01/16/2024 2:56 PM This order reflects the patients wishes and were consensually agreed upon. Question Answer Comments Discussion of Advance Directives occurred with: Patient Care Teams Database Manager Relationship Specialty Start Date End Date Yolie Leavitt DO [address] [place] [address] PCP - General Internal Medicine 01/23/23 documented as of this encounter
--- OUTSIDE RECORDS SUMMARY | 2024-03-18 19:23 | External Medical Summary | Summary of Care ---
Author Name Unknown Organization [facility] Address [address] [place] [address] Phone [phone] Care Team Providers Care Making Machine Operator Name Role Phone Chino Leavitt DO Primary Care Provider [phone] Reason for Visit * Reason Onset Date Comments Irregular Heart Rate 01/22/2024 Slow Heart Rate 01/22/2024 Encounter Details Date Type Department Care Team (Late st Contact Info) Description 01/22/2024 Telephone Cardiology [facility] [address] [place] [address] Dianne Purdy, RN Irregular Heart Rate; Slow Heart Rate (/) Allergies No known active allergiesdocumented as of this encounter (statuses as of 01/22/2024) Medications Medication Sig Dispensed Refills Start Date End Date Status Shtkjizotrx-Vtywhuljz-Nrs C-Mn (GLUCOSAMINE CHONDR 500 COMPLEX) Capsule Take 1 Capsule by mouth every morning. Active [place] 3 1000 MG CAPS Take 1 Capsule [...] as of this encounter (statuses as of 01/22/2024) Active Problems Problem Noted Date Diagnosed Date [...] as of this encounter (statuses as of 01/22/2024) Resolved Problems Problem Noted Date Diagnosed Date Resolved Date COPD with emphysema 05/26/2022 03/03/20 23 Anemia 05/26/2022 04/21/2023 documented as of this encounter (statuses as of 01/22/2024) Immunizations Name Administration Dates Next Due COVID-19 mRNA, LNP-s, No Pre serve, 2-Dose Series (eSentire) 03/30/2022,06/23/2021,10/02/2020,09/11 COVID-19, MRNA-LNP, 23-24, P F, 30 MCG/0.3 mL, 12 YRS AND ABOVE, IM ([facility] 08/14/2023 Covid-19, Mrna, Lnp-s, Pf, B ivalent, 30 Mcg, IM, 12 yrs and above (eSentire) 06/28/2022 Influenza, Whole Virus 07/12/1999 Pneumococcal Conjugate [...] 9:34 AM EDT Received a message from [employer] this morning for new notification alert Josias had 60 second episode of slow Afib (HR 40s) Monday morning. Will review with Dr. Pena, patient has his one week follow up with us on Monday. ADA Hagen Interventional Valve Nurse Navigator documented in this encounter Plan of Treatment Upcoming Encounters Date Type Department Care Team (Late st Contact Info) Description 01/23/2024 2:40 PM EDT Pharmacy Family Practice 65 [facility] [place] 293 [place] [address] College, Pharmacist [address] [place] [address] 01/23/2024 3:00 PM EDT Office Visit Family Practice 65 [facility] 293 [place] [address] Chino Leavitt, 293 [place] [address] 01/24/2024 3:00 PM EDT Office Visit Cardiology, [facility] 132 [place] [address] Adelina Riddle CRNP 132 [place] [address] 01/26/2024 10:00 AM EDT Scheduled Telephone Care Coordination and Integration [address] [place] [address] [facility] [address] [place] [address] 01/31/2024 11:30 AM EDT Office Visit Cardiology, [facility] 132 [place] [address] Melo Pena MD [address] [place], [place] [id number] 03/04/2024 2:30 PM EDT Laboratory Laboratory, [facility] [address] Андрей Ozuna [facility] [address] 03/04/2024 3:00 PM EDT Office Visit Cardiology, [facility] 132 [facility] [place] [address] Adelina Riddle CRNP [facility] [address] 03/15/2024 1:00 PM EDT Office Visit Family Practice [address] [place] [address] 293 [place] [address] Chino Leavitt, 293 [facility] [place] [address] 04/03/2024 7:15 AM EDT Cardiac Studies Cardiac Studies, [facility] 132 [facility] [address] 04/17/2024 12:30 PM EDT Office Visit Dermatology [facility] [address] [place] [address] Trisha Pulido PA-C [address] [place] [address] 11/18/2024 1:00 PM EDT PulmDiagnostic Pulmonary Function Lab Marlena Irvingwn [address] [place] [address] [address], [address] 132 [facility] [place] [address] 11/18/2024 1:40 PM EDT Office Visit Pulmonary Medicine Urmila Irving [address] [place] [phone] Wander Gonzalez MD [address] [place] [address] Health Maintenance Due Date Last Done Comments [...] this encounter Medical Devices Implanted Type Area Jewel Hole Driller Device Identifier Shelf Expiration Date Model / Serial / Lot Cath Thermodilution 6fr - [id number] Implanted:Qty: 1 on 11/04/2021 by Kevin Espino DO at [facility] [employer] [id number] 10/13/2023 [id number] / / [id number] Valve Transcath Resilia 29mm - [id number] Implanted:Qty: 1 on 01/16/2024 by Melo Pena MD at [facility] [employer] [id number] 06/19/2025 [id number] / / documented as of this encounter Advance Directives * Full Code (Latest Code Status on File) Date Activated Date Inactivated Comments 01/16/2024 2:56 PM 01/18/2024 7:23 PM This order r eflects the patients wishes and were consensually agreed upon. Question Answer Comments Discussion of Advance Directives occurred with: Patient Healthcare Agents on File Name Relationship Healthcare Agent Relationship Communication Lexie Zan Significant Other Health Care Re presentative (appointed verbally by patient or by statute hierarchy) [email or web address] Care Teams Making Machine Operator Relationship Specialty Start Date End Date Chino Leavitt DO [address] [place] [address] PCP - General Internal Medicine 01/23/23 documented as of this encounter
--- OUTSIDE RECORDS SUMMARY | 2024-03-18 19:23 | External Medical Summary | Summary of Care ---
Author Name Unknown Organization [facility] Address [address] [place] [address] Phone [phone] Care Team Providers Care Clam Dredger Name Role Phone Chino Leavitt DO Primary Care Provider [phone] Reason for Visit * Auth/Cert Specialty Diagnoses / Procedures Referred By Sabino t Referred To Contact Diagnoses Aortic stenosis Aortic stenosis [I35.0] Procedures REPLACE AORTIC VALVE, PERCUTANEOUS FEMORAL REPLACE AORTIC VALVE, PERCUTANEOUS FEMORAL REPLACE AORTIC VALVE, PERCUTANEOUS FEMORAL REPLACE AORTIC VALVE, PERCUTANEOUS FEMORAL Melo Pena MD [address] [place] [address] Crs Waiting Ip [facility] [address] [place] [address] Referral ID Status Reason Start Date Expiration Date Visits Re quested Visits Authorized [id number] Encounter Details Date Type Department Care Team (Latest Contact Info) Description 01/17/2024 8:07 AM EDT - 01/17/2024 11:59 PM EDT Hospital Encounter Cardiac Studies [facility] [address], [place] [id number] Discharge Disposition: Home - Self Care Allergies No known active allergiesdocumented as of this encounter (statuses as of 01/18/2024) Medications Medication Sig Dispensed Refills Start Date End Date Status Glkcmnwlhkd-Kczodcbcr-M it C-Mn (GLUCOSAMINE CHONDR 500 COMPLEX) Capsule Take 1 Capsule by mouth every morning. 0 Suspended [place] 3 1000 MG CAPS Take 1 Capsule by mouth daily. 0 Suspended Multiple Vitamin (MULTI-DAY VITAMINS) Tablet Take 1 Tab by mouth daily. 0 Suspended Albuterol Sulfate HFA 108 (90 Base) MCG/ACT Inhalation Aerosol Solution as needed. 0 09/28/19 Suspended Co Q 10 10 MG Oral [...] 0 Suspended Torsemide 20 MG Oral Tablet (Demadex)Indications:Pu lmonary hypertension ([facility]) TAKE 2 TABLETS DAILY FIRST THING IN THE MORNING 180 Tablet 3 04/08/20 23 Suspended Additional Information Iron 325 (65 Fe) MG Oral Tablet Take 1 Tablet by mouth in the morning. 0 08/14/20 Suspended NATURAL SUPPLEMENT Take 20 mg by mouth in the morning and 20 mg before bedtime. CBD oil. 0 Suspended Metoprolol Succinate ER 50 MG Oral Tablet Extended Release 24 Hour (Toprol XL)Indications:HFrEF (heart failure with reduced ejection fraction) ([facility]),Longstanding persistent atrial fibrillation ([facility]) Take 1.5 Tablets by mouth in the morning. 135 Tablet 3 09/25/19 24 05/ 024 Discontinued Potassium Chloride Christina ER 10 MEQ Oral Tablet Extended ReleaseIndications:Hear t failure with preserved left ventricular function (HFpEF) ([facility]) Take 1 Tablet by mouth in the morning. 90 Tablet 3 09/25/19 24 Suspended Additional Information Spironolactone 25 MG Oral Tablet (Aldactone)Indications: Heart failure with preserved left ventricular function (HFpEF) ([facility]) Take 1 Tablet by mouth [...] Additional Information metOLazone 5 MG Oral Tablet (Zaroxolyn)Indications: Centrilobular emphysema (HCC),Pulmonary hypertension (HCC),Diaphragm dysfunction Take 1 Tablet by mouth as needed for Dyspnea. As needed average is about once every 10 days per patient 0 11/27/19 24 Suspended Diclofenac Sodium 1 % External Gel (Voltaren) Apply topically to affected area. Apply to right hip and knee 0 Suspended Atorvastatin Calcium 40 MG Oral Tablet (Lipitor)Indications:Pu re hypercholesterolemia Take 1 Tablet by mouth in the morning. 90 Tablet 3 12/13/19 24 Suspended Additional Information Apixaban 5 MG Oral Tablet (Eliquis) Take 1 Tablet by mouth in the morning and 1 Tablet before bedtime. 180 Tablet 3 12/13/19 24 024 Discontinued Tamsulosin HCl 0.4 MG Oral Capsule (Flomax) [...] mRNA, LNP-s, No Pre serve, 2-Dose Series ([employer]) 03/30/2022,06/23/2021,10/02/2020,09/11 COVID-19, MRNA-LNP, 23-24, P F, 30 [...] 2:40 PM EDT Pharmacy Family Practice [address] [facility] [address] [place] [phone] College, Pharmacist [address] [place] [address] 01/23/2024 3:00 PM EDT Office Visit Family Practice [facility] [address] Chino Leavitt, DO 293 [place] [address] 01/24/2024 3:00 PM EDT Office Visit Cardiology, [facility] [address] [place] [address] Adelina Riddle CRNP [address] [place] [address] 01/31/2024 11:30 AM EDT Office Visit Cardiology, [facility] [address] [place] [address] Melo Pena MD [address] [place] [address] 03/04/2024 2:30 PM EDT Laboratory Laboratory, [facility] [address] [place] [address] [facility] [address] [place] [address] 03/04/2024 3:00 PM EDT Office Visit Cardiology, [facility] [address] [place] [address] Adelina Riddle CRNP [address] [place] [address] 03/15/2024 1:00 PM EDT Office Visit Family Practice [address] [place] [address] [address] [place] [address] Chino Leavitt, DO 293 [place] [address] 04/03/2024 7:15 AM EDT Cardiac Studies Cardiac Studies, [facility] [address] [place] [address] 04/17/2024 12:30 PM EDT Office Visit Dermatology [facility] [place] [address] [place], [place] [address] Trisha Pulido PA-C [address] [facility] [place] [address] 11/18/2024 1:00 PM EDT [facility]ostic [facility] [place] [address] [place] [address] [address], [address] [place] [address] 11/18/2024 1:40 PM EDT Office Visit Pulmonary Medicine [facility] [place] [address] [place] [phone] Wander Gonzalez MD [address] [facility] [place] [address] Health Maintenance Due Date Last Done Comments [...] this encounter Medical Devices Implanted Type Area Scada Engineer Device Identifier Shelf Expiration Date Model / Serial / Lot Cath Thermodilution 6fr - [id number] Implanted:Qty: 1 on 11/04/2021 by Kevin Espino DO at [facility] [employer] [id number] 10/13/2023 [id number] / / [id number] Valve Transcath Resilia 29mm - [id number] Implanted:Qty: 1 on 01/16/2024 by Melo Pena MD at [facility] [employer] [id number] / / documented as of this encounter Procedures Procedure Name Priority Date/Time Associated Diagnosis Comments ECHO, COMPLETE (2D), TRANS-THORACIC Routine 01/17/2024 8:37 AM EDT S/P TAVR (transcatheter aortic valve replacement) documented in this encounter Results * ECHO, COMPLETE (2D), TRANS-THORACIC (01/17/2024 8:37 AM EDT) LEFT VENTRICULAR EJECTION FRACTION 55 % [facility] 01/17/2024 7:57 AM EDT Sherly Hannah DO [facility] documented in this encounter Advance Directives Latest Code Status on File Code Status Date Activated Date Inactivated Comments Full Code 01/16/2024 2:56 PM This order reflects the patients wishes and were consensually agreed upon. Question Answer Comments Discussion of Advance Directives occurred with: Patient Care Teams Clam Dredger Relationship Specialty Start Date End Date Chino Leavitt DO [address] [place] [place] [address] PCP - General Internal Medicine 01/23/23 documented as of this encounter
--- OUTSIDE RECORDS SUMMARY | 2024-03-18 19:23 | External Medical Summary | Summary of Care ---
Author Name Unknown Organization [facility] Address [address] [place] [address] Phone [phone] Care Team Providers Care White Metal Corrosion Proofer Name Role Phone Chino Leavitt DO Primary Care Provider [phone] Reason for Visit * Reason Onset Date Comments Irregular Heart Rate 01/22/2024 Slow Heart Rate 01/22/2024 Encounter Details Date Type Department Care Team (Late st Contact Info) Description 01/22/2024 Telephone Cardiology [facility] [address] [place] [address] Dianne Purdy, RN Irregular Heart Rate; Slow Heart Rate (/) Allergies No known active allergiesdocumented as of this encounter (statuses as of 01/22/2024) Medications Medication Sig Dispensed Refills Start Date End Date Status Gbknmxykakh-Kkxntnhob-Psf C-Mn (GLUCOSAMINE CHONDR 500 COMPLEX) Capsule Take 1 Capsule by mouth every morning. Active [place] 3 1000 MG CAPS Take 1 Capsule [...] mRNA, LNP-s, No Pre serve, 2-Dose Series ([employer]) 03/30/2022,06/23/2021,10/02/2020,09/11 COVID-19, MRNA-LNP, 23-24, P F, 30 MCG/0.3 mL, 12 YRS AND ABOVE, IM [facility] 08/14/2023 Covid-19, Mrna, Lnp-s, Pf, B ivalent, 30 Mcg, IM, 12 yrs and above ([employer]) 06/28/2022 Influenza, Whole Virus 07/12/1999 Pneumococcal Conjugate [...] encounter Miscellaneous Notes * Telephone Encounter - Dianne Purdy RN - 01/22/2024 9:34 AM EDT Received a message from [employer] this morning for new notification alert Josias [...] 2:40 PM EDT Pharmacy Family Practice [address] [place] [address] College, Pharmacist [address] [place] [address] 01/23/2024 3:00 PM EDT Office Visit Family Practice [address] [place] [address] Chino Leavitt, DO [address] [facility] [place] [address] 01/24/2024 3:00 PM EDT Office Visit Cardiology, [facility] [address] [facility] [place] [address] Adelina Riddle CRNP [address] [place] [address] 01/31/2024 11:30 AM EDT Office Visit Cardiology, [facility] [address] [facility] [place] [address] Melo Pena MD [address] [place] [address] 03/04/2024 2:30 PM EDT Laboratory Laboratory, [facility] [address] [facility] [place] [address] [facility] [address] [facility] [place] [address] 03/04/2024 3:00 PM EDT Office Visit Cardiology, [facility] [address] [facility] [place] [address] Adelina Riddle CRNP [address] [place] [address] 03/15/2024 1:00 PM EDT Office Visit Family Practice [address] [place] [address] 293 [place] [phone] Chino Leavitt, DO [address] [place] [address] 04/03/2024 7:15 AM EDT Cardiac Studies Cardiac Studies, [facility] 132 [facility] [place] [address] 04/17/2024 12:30 PM EDT Office Visit Dermatology [facility] [place] [address] [place] [address] Trisha Pulido PA-C [address] [facility] [place] [address] 11/18/2024 1:00 PM EDT PulmDiagnostic Pulmonary Function Lab [facility] [address] [facility] [place] [address] [place], [address] [place] [address] 11/18/2024 1:40 PM EDT Office Visit Pulmonary Medicine [facility] [address] [facility] [place] [phone] Wander Gonzalez MD [address] [facility] [place] [address] Health Maintenance Due Date Last Done Comments [...] this encounter Medical Devices Implanted Type Area Heavy Duty Mechanic Farm Equipment Device Identifier Shelf Expiration Date Model / Serial / Lot Cath Thermodilution 6fr - [id number] Implanted:Qty: 1 on 11/04/2021 by Kevin Espino DO at [facility] [employer] [id number] 10/13/2023 [id number] / / [id number] Valve Transcath Resilia 29mm - [id number] Implanted:Qty: 1 on 01/16/2024 by Melo Pena MD at [facility] [employer] [id number] / / documented as of this encounter [...] patient or by statute hierarchy) Care Teams White Metal Corrosion Proofer Relationship Specialty Start Date End Date Chino Leavitt DO [address] [place] [address] PCP - General Internal Medicine 01/23/23 documented as of this encounter
--- OUTSIDE RECORDS SUMMARY | 2024-03-18 19:23 | External Medical Summary | Summary of Care ---
Author Name Unknown Organization [facility] Address [address] [place] [address] Phone [phone] Care Team Providers Care Tray Worker Name Role Phone Chino Leavitt DO Primary Care Provider Reason for Referral * Evaluate & Treat - Unlimited Visits (Within 30 days (routine)) - Authorized Specialty Diagnoses / Procedures Referred By Sabino rodriguez Referred To Contact CARDIAC REHAB / Cardiology Diagnoses S/P TAVR (transcatheter aortic valve replacement) Sherly Hannah DO [address] [place] [address] Referral ID Status Reason Start Date Expiration Date Visits Requested Visits Authorized [id number] Authorized Specialty Services Required 01/16/2024 [id number] Question Answer Referral Priority Within 30 days (routine) Where should this appointment be scheduled? [facility] Comments Discharge Order Reason for Visit * Auth/Cert Specialty Diagnoses / Procedures Referred By Contac t Referred To Contact Diagnoses Aortic stenosis Aortic stenosis [I35.0] Procedures REPLACE AORTIC VALVE, PERCUTANEOUS FEMORAL REPLACE AORTIC VALVE, PERCUTANEOUS FEMORAL REPLACE AORTIC VALVE, PERCUTANEOUS FEMORAL REPLACE AORTIC VALVE, PERCUTANEOUS FEMORAL Madeleine Pena MD [address] [place] [address] Crs Waiting Ip [facility] [address] [place] [address] Referral ID Status Reason Start Date Expiration Date Visits Re quested Visits Authorized [id number] Encounter Details Date Type Department Care Team (Latest Contact Info) Description 01/16/2024 10:58 AM EDT - 01/18/2024 3:22 PM EDT Hospital Encounter CICU, Cardiac Intensive Care Unit [facility] 7TH Floor [address] [place] [address] Madeleine Pena MD [address] [place] [address] Hernandez Lau DO [address], [place] [id number] Kayla Lentz MD [address], [place] [id number] EKG Report Discharge Disposition: Home - Self Care Allergies No known active allergiesdocumented as of this encounter (statuses as of 01/19/2024) Medications Medication Sig Dispensed Refills Start Date End Date Status Hrvsyhrsmkh-Kduiowzpx-Kt t C-Mn (GLUCOSAMINE CHONDR 500 COMPLEX) Capsule Take 1 Capsule by mouth every morning. 0 Active [place] 3 1000 MG CAPS Take 1 Capsule by mouth daily. 0 Active Multiple Vitamin (MULTI-DAY VITAMINS) Tablet Take 1 Tab by mouth daily. 0 Active Albuterol Sulfate HFA 108 (90 Base) MCG/ACT Inhalation Aerosol Solution as needed. 0 09/28/19 22 Active Co Q 10 10 MG Oral Capsule Take by mouth 1 Capsule daily . 0 Active B-12 500 MCG Oral Tablet Take 1 Capsule by mouth in the morning. 0 Active BiPAP every night at bedtime. 18/7 cm 0 Active Ascorbic Acid 250 MG Oral Tablet Take 1 Tablet by mouth in the morning. 0 09/15/19 23 Active Acetaminophen 500 MG Oral Tablet (Tylenol) Take 2 Tablets by mouth 2 times a day as needed. 0 08/31/20 21 Active DULoxetine HCl 60 MG Oral Capsule Delayed Release Particles Take 1 Capsule by mouth every evening. 0 Active Torsemide 20 MG Oral Tablet (Demadex)Indications:Pul monary hypertension (HCC) TAKE 2 TABLETS DAILY FIRST THING IN THE MORNING 180 Tablet 3 04/08/20 23 Active Iron 325 (65 Fe) MG Oral Tablet Take 1 Tablet by mouth in the morning. 0 08/14/20 23 Active NATURAL SUPPLEMENT Take 20 mg by mouth in the morning and 20 mg before bedtime. CBD oil. 0 Active Potassium Chloride Christina ER 10 MEQ Oral Tablet Extended ReleaseIndications:Heart failure with preserved left ventricular function (HFpEF) ([facility]) Take 1 Tablet by mouth in the morning. 90 Tablet 3 09/25/19 24 Active Spironolactone 25 MG Oral Tablet (Aldactone)Indications:H eart failure with preserved left ventricular function (HFpEF) ([facility]) Take 1 Tablet by mouth [...] 2 weeks 40 g 0 10/25/19 24 Active metOLazone 5 MG Oral Tablet (Zaroxolyn)Indications:C entrilobular emphysema ([facility]),Pulmonary hypertension ([facility]),Diaphragm dysfunction Take 1 Tablet by mouth as needed for Dyspnea. As needed average is about once every 10 days per patient 0 11/27/19 24 Active Diclofenac Sodium 1 % External Gel (Voltaren) Apply topically to affected area. Apply to right hip and knee 0 Active Atorvastatin Calcium 40 MG Oral Tablet (Lipitor)Indications:Pur e hypercholesterolemia Take 1 Tablet by mouth in the morning. 90 Tablet 3 12/13/19 24 Active Tamsulosin HCl 0.4 MG Oral Capsule (Flomax) Take 1 Capsule by mouth in the morning. 90 Capsule 3 01/02/20 24 Active Aspirin 81 MG Oral Tablet Chewable Chew & swallow 1 Tablet by mouth in the morning. 30 Tablet 11 01/18/20 24 Active Metoprolol Succinate ER 50 MG Oral Tablet Extended Release 24 Hour (Toprol XL)Indications:HFrEF (heart failure with reduced ejection fraction) ([facility]),Longstanding persistent atrial fibrillation ([facility]) Take 0.5 Tablets by mouth in the morning. 135 Tablet 3 01/18/20 24 Active Apixaban 5 MG Oral Tablet (Eliquis) Take 1 Tablet by mouth in the morning and 1 Tablet before bedtime. Do not start before January 19, 2024. 180 Tablet 3 01/19/20 24 Active Betamethasone Dipropionate 0.05 % External Cream (Diprosone) as needed. 0 12/21/19 23 024 Discontinued Zolpidem Tartrate 5 MG Oral Tablet (Ambien)Indications:Prim gera insomnia TAKE 1 TABLET AT BEDTIME NEEDED FOR SLEEP 30 Tablet 0 09/06/19 24 024 Discontinued Metoprolol Succinate ER 50 MG Oral Tablet Extended Release 24 Hour (Toprol XL)Indications:HFrEF (heart failure with reduced ejection fraction) ([facility]),Longstanding persistent atrial fibrillation (HCC) Take 1.5 Tablets by mouth in the morning. 135 Tablet 3 09/25/19 24 024 Discontinued CBD [place] 4-3-9-1.2 % External Patch (Lish-Ooswihj-Iteetf Michael-Camph) Apply topically to affected area. 0 024 Discontinued Apixaban 5 MG Oral Tablet (Eliquis) Take 1 Tablet by mouth in the morning and 1 Tablet before bedtime. 180 Tablet 3 12/13/19 24 024 Discontinued documented as of this encounter (statuses as of 01/19/2024) Active Problems Problem Noted Date Diagnosed Date [...] as of this encounter (statuses as of 01/19/2024) Resolved Problems Problem Noted Date Diagnosed Date Resolved Date COPD with emphysema 05/26/2022 03/03/20 23 Anemia 05/26/2022 04/21/2023 documented as of this encounter (statuses as of 01/19/2024) Immunizations Name Administration Dates Next Due COVID-19 mRNA, LNP-s, No Pre serve, 2-Dose Series ([employer]) 03/30/2022,06/23/2021,10/02/2020,09/11 COVID-19, MRNA-LNP, 23-24, P F, 30 MCG/0.3 mL, 12 YRS AND ABOVE, IM ([facility]) 08/14/2023 Covid-19, Mrna, Lnp-s, Pf, [...] Sign Reading Time Taken Comments Blood Pressure 140/82 01/18/2024 8:00 AM EDT Pulse 90 01/18/2024 8:00 AM EDT Temperature 36.1 C (97 F) 01/18/2024 8:00 AM EDT Respiratory Rate 20 01/18/2024 8:00 AM EDT Oxygen Saturation 95% 01/18/2024 8:00 AM EDT Inhaled Oxygen Concentration - - Weight 115 kg (253 lb 8.5 oz) 01/18/2024 6:00 AM EDT Height 175.3 cm (5' 9") 01/16/2024 11:32 AM EDT Body Mass Index 37.44 01/16/2024 11:32 AM EDT documented in this encounter Functional Status [...] No 01/16/2024 documented as of this encounter Discharge Summaries * Kayla Lentz MD - 01/18/2024 11:09 AM EDT [address] [address] Admission Date: 01/16/2024 Discharge Date: 01/18/2024 73 year old male with history of non-rheumatic , HFrEF, chronic AF, CAD, HLD who presented for elective TAVR. Follow-up with PCP in 3-5 days Follow- up with Cardiology in 1 week Zio patch on discharge Incidental Findings: N/A Outpatient labs: N/A Follow-up imaging: N/A Medication changes as below Please START taking the following medications -Aspirin 81 mg: take 1 tablet daily Please note the following CHANGES to your previous medications -Eliquis: please HOLD this medication and RESTART 5 mg 1 tablet twice daily on the morning of 01/18 -Metoprolol Succinate: Decreased from 50 mg daily to 25 mg take 1 tablet daily (or 1/2 tablet of 50mg tablet) Please STOP taking the following medications -none Please continue taking all other medications as previously prescribed. DISCHARGE DIAGNOSES: Active Hospital Problems Diagnosis *Principal Diagnosis - S/P TAVR (transcatheter aortic valve replacement) Resolved Hospital Problems No resolved problems to display. Attending Provider: Kayla Lentz MD CONDITION ON DISCHARGE: stable DISPOSITION ON DISCHARGE: home FOLLOW-UP: Future Appointments Appt Date/Time Provider Department 01/23/2024 2:40 PM College, Pharmacist [address] 01/23/2024 3:00 PM Chino Leavitt DO [address] 01/24/2024 3:00 PM Adelina Riddle CRNP Cardiology, [facility] 01/31/2024 11:30 AM Madeleine Pena MD Cardiology, [facility] 03/04/2024 2:30 PM Андрей [facility] Laboratory, [facility] 03/04/2024 3:00 PM Adelina Riddle CRNP Cardiology, [facility] 03/15/2024 1:00 PM Chino Leavitt DO [address] 04/03/2024 7:15 AM PULMONARY SPECIALIST 2 GW Cardiac Studies, [facility] 04/17/2024 12:30 PM Trisha Pulido PA-C Dermatology [facility] [place] 11/18/2024 1:00 PM Ted Pft Pulmonary Function Lab [facility] 11/18/2024 1:40 PM Wander Gonzalez MD Pulmonary Medicine [facility] Outpatient testing already scheduled: N/A Outpatient testing that needs to be arranged: N/A Inpatient test results pending: N/A MEDICATIONS ON DISCHARGE: MEDICATION UPDATES AT DISCHARGE START taking these medications INSTRUCTIONS aspirin 81 MG chewable tablet Chew & swallow 1 Tablet by mouth in the morning. CHANGE how you take these medications INSTRUCTIONS Apixaban 5 MG Tablet Commonly known as: Eliquis Start taking on: January 19, 2024 Take 1 Tablet by mouth in the morning and 1 Tablet before bedtime. Do not start before January 19, 2024. metoprolol succinate XL 50 MG Tb24 Commonly known as: Toprol XL What changed: how much to take Take 0.5 Tablets by mouth in the morning. CONTINUE taking these medications INSTRUCTIONS Acetaminophen 500 MG Tablet Commonly known as: Tylenol Take 2 Tablets by mouth 2 times a day as needed. albuterol HFA 108 (90 BASE) MCG/ACT inhaler as needed. Ascorbic Acid 250 MG Tabs Take 1 Tablet by mouth in the morning. atorvaSTATin 40 MG Tablet Commonly known as: Lipitor Take 1 Tablet by mouth in the morning. B-12 500 MCG Tabs Take 1 Capsule by mouth in the morning. BiPAP every night at bedtime. 18/7 cm Co Q 10 10 MG Caps Take by mouth 1 Capsule daily . DULoxetine 60 MG Cpep Commonly known as: Cymbalta Take 1 Capsule by mouth every evening. Fluorouracil 5 % cream Commonly known as: Efudex Apply to site on the right cheek twice daily x 2 weeks Glucosamine Chondr 500 Complex Capsule Take 1 Capsule by mouth every morning. Iron 325 (65 Fe) MG Tabs Take 1 Tablet by mouth in the morning. metOLazone 5 MG Tablet Commonly known as: Zaroxolyn Take 1 Tablet by mouth as needed for Dyspnea. As needed average is about once every 10 days per patient Multi-Day Vitamins Tablet Take 1 Tab by mouth daily. NATURAL SUPPLEMENT Take 20 mg by mouth in the morning and 20 mg before bedtime. CBD oil. [place] 3 1000 MG Caps Take 1 Capsule by mouth daily. potassium chloride ER 10 MEQ Tbcr Take 1 Tablet by mouth in the morning. Spironolactone 25 MG Tablet Commonly known as: Aldactone Take 1 Tablet by mouth in the morning. tamsulosin 0.4 MG Capsule Commonly known as: Flomax Take 1 Capsule by mouth in the morning. Torsemide 20 MG Tablet Commonly known as: Demadex TAKE 2 TABLETS DAILY FIRST THING IN THE MORNING Triamcinolone Acetonide 0.1 % cream Commonly known as: Aristocort Apply to affected area on forearm twice daily for up to two weeks if needed for itching Voltaren 1 % Gel Generic drug: Diclofenac Apply topically to affected area. Apply to right hip and knee ALLERGIES: Patient has no known allergies. 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 On 01/16/2024, patient presented to [facility] from home for elective TAVR. Patient overall tolerated procedure well. Device implanted: #29 mm Quesada-Robert S3 Ultra Resilia Valve Arrhythmia: None Notable findings: right femoral artery required Perclose device x 2 Temp wire was placed in the right femoral vein and removed at end of procedure Valve access was gained via 6 Monegasque catheter in the right femoral artery. Patient seen in CRS postoperatively. He is lying flat on non-rebreather 10 L/min, which he states is because he has difficulty breathing when lying flat. Denies headache, dizziness, chest pain, abdominal pain, nausea, or vomiting. No acute complaints. Patient admitted to [facility] Cardiology for postoperative monitoring s/p TAVR. Lives in [place], [place] with Lexie Zuluaga (significant other). 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 O2 or CPAP: No daytime O2, nighttime BiPAP Pacemaker/Implanted devices: None Walker or Cane: None FULL CODE Would accept a transfusion if needed. Medical decision maker: Lexie Zuluaga (significant other). phone number confirmed and correct in chart. PCP: Chino Leavitt DO Relevant Cardiac and Medical History: Cardiac History: Non-rheumatic , HFrEF, chronic AF, CAD, HLD [facility]21 Cardiac Cath Mild, non-obstructive CAD with 20% distal LMCA stenosis and luminal irregularities in LAD. Circumflex and dominant RCA are angiographically normal. Right and left heart catheterization show normal cardiac filling pressures and no evidence of constriction. There is no sign of discordance during simultaneous RV/LV pressure measurements. There is moderate AV stenosis based on invasive AV assessment: Calculated KATHRYN 1.5 cm2, mean PG 35 mmHg mean RA 5 mmHg PA 30/9, mean 19 mmHg mean PCWP 11 mmHg and LVEDP 10 mmHg PA saturation 62%; Ao Sat 88% * Assumed Kady CO 8 L/min; index 3.4 11/08/23 GALI The qualitative LV ejection fraction is 50-54% (normal). No LV segmental wall motion abnormalities. Moderate mitral regurgitation is present. Borderline severe aortic valve stenosis is present with KATHRYN of 1.0 cm^2 and a dimensionless velocity index of 0.25 The proximal ascending thoracic aorta is mildly enlarged. 11/08/23 Stress echo protocol was done. Nondiagnostic submaximal Stress EKG due to failure to reach 85% age predictedheart rate. Occasional PVCs were noted with stress. Ventricular couplets were noted with stress. Ventricular bigeminy was noted with stress. Atrial fibrillation was noted at rest. Diffuse non-specific T-wave changes were noted at rest. The stress test was terminated due to end of protocol. No symptoms were noted. Blood pressure response to exercise was normal. 11/27/23 Cardiac Cath Distal LMCA 20% stenosis. Similar to prior angiogram Otherwise angiographically normal coronaries No recent ED visits or hospital admissions Vitals: BP 111/67 | Pulse 55 | Temp 36.1 C (97 F) (Tympanic) | Resp 20 | Ht 1.753 m (5' 9") | Wt 115.7 kg (255 lb) | SpO2 89% | BMI 37.66 kg/m | BSA 2.37 m Physical Examination: Constitutional: no acute distress, nontoxic appearing. Head: normocephalic, atraumatic. Eyes: Pupils 3 mm and reactive to light, extraocular movements intact. Ears, nose, throat: moist mucous membranes, no nasal discharge. Chest wall: no chest wall tenderness or deformity. Cardiovascular: normal rate, irregularly irregular rhythm. Pulmonary: no respiratory distress, symmetric chest rise, trachea midline, good air entry. Abdomen: soft, non-distended, no abdominal tenderness to palpation, no rebound, no rigidity, no guarding. Genitourinary: deferred . Extremities: no cyanosis, no significant upper or lower extremity edema. Musculoskeletal: no visible deformities, 5/5 strength in bilateral upper extremities, bilateral lower extremities deferred due to need to stay flat . Neurological: Awake, alert, and answering questions appropriately. Skin: warm, dry. Access Site: right femoral and left femoral access sites with minimal punctate ooze under CHG tegaderm, bilateral groins soft without palpable hematoma HOSPITAL COURSE (focused): On 01/16/2024, patient was admitted to [facility] Cardiology status post TAVR with #29 mm Quesada-Robert G1Hobtk Resilia Valve. Post-op ECG showed AF with slow ventricular response, rate 55. Post-op XR Chest with valve in appropriate location without evidence of widened mediastinum, pneumothorax, pulmonary edema. TTE on POD1 s/p TAVR The examination is adequate to evaluate the referral indication. The qualitative LV ejection fraction is 55-59% (normal). No LV segmental wall motion abnormalities. The right ventricular systolic function is qualitatively normal. The patient is status post TAVR with Robert type prosthetic valve. Mild paravalvular aortic valve prosthesis regurgitation is present. Aortic valve prosthesis stenosis is absent. Mild mitral regurgitation is present. Of note, approximately 2 hours after procedure, patient had witnessed altered mental status with concurrent bradycardia in 20-30s. On evaluation, patient had returned back to baseline mentation with ECG showing AF with slow ventricular response, rate 50s. Several hours later, patient had another episode of altered mental status with noted 7-second sinus pause on telemetry. The decision was made to place a temp wire paced at 50 beats per minute with some pacing spikes overnight. Pacer turned down to 30 beats per minute and patient did not requiring pacing for 24 hours. In discussion with Dr. Pepper and reviewing patient's telemetry, episodes likely secondary to anesthesia and do not require urgent electrophysiologic intervention at this time. On 01/18/2024, patient in stable condition for discharge home with Zio patch. Operations & Procedures: TAVR [place] Interpretation (focused): Successful transfemoral implantation of a # 29mm Quesada Robert S3 Ultra resilia valve Placement of temporary venous pacemaker Arterial access site closure with dual Perclose Proglide devices Selective angiography of the right common iliac artery Day of Discharge Physical Examination BP 140/82 | Pulse 90 | Temp 36.1 C (97 F) (Tympanic) | Resp 20 | Ht 1.753 m (5' 9") | Wt 115 kg(253 lb 8.5 oz) | SpO2 95% | BMI 37.44 kg/m | BSA 2.37 m Constitutional: no acute distress, nontoxic appearing. Cardiovascular: normal rate, regular rhythm, no murmurs, rubs, or gallops. Pulmonary: no respiratory distress, symmetric chest rise, trachea midline, good air entry, no wheezes, no rales, no rhonchi. Abdomen: soft, non-distended, no abdominal tenderness to palpation, no rebound, no rigidity, no guarding. Extremities: no cyanosis, no significant upper or lower extremity edema, left groin access site soft with punctate ooze under tegaderm, right groin access site diffusely ecchymotic but soft with punctate ooze under tegaderm Neurological: Awake, alert, and answering questions appropriately. SELECTED RESULTS: Last recorded weight: Weight: 115 kg (253 lb 8.5 oz) (01/18/24 0600) Laboratory: Chemistry Panel: Lab results within last 7 days (see chart for full results) Units 01/18/24 0427 01/17/24 0424 01/16/24 1713 Sodium mmol/L 140 142 140 Potassium mmol/L 3.8 4.1 4.1 Chloride mmol/L 106 106 104 CO2 mmol/L 25 31 29 BUN mg/dL 20 22* 23* Creatinine mg/dL 1.0 1.2 1.2 Glucose mg/dL 98 112 96 Calcium mg/dL 9.0 8.7 8.8 Magnesium mg/dL 2.4 2.4 2.2 Anion Gap mmol/L 9 5* 7 Complete Blood Count: Lab results within last 7 days (see chart for full results) Units 01/18/24 0427 01/17/24 0423 01/16/24 1713 WBC K/uL 8.63 9.89 10.45 HGB g/dL 12.3* 13.5* 14.1 HCT % 37.3* 42.8 43.0 PLT K/uL 114* 145 151 MCV fL 94.7 97.5 96.4 Cardiac Studies: Lab results within last 7 days (see chart for full results) Units 01/16/24 1134 BNP, NT-Pro pg/mL 1,238* Complications: none CONSULTS ORDERED: CARE MANAGEMENT CONSULT IP REFERRING PHYSICIAN: Ref: MADELEINE PENA[[id number]] [address] [place] [address] (office) [phone] (fax) PRIMARY CARE PROVIDER: PCP: Chino Leavitt DO [address] [facility] [address] (office) [phone] (fax) Note: To contact a physician responsible for this patients hospital care, please call [employer] [phone]. I saw and evaluated the patient today. I have reviewed the trainee note and agree. Doing well post TAVR Has not required pacing QRS duration is within normal limits Discharge planned following discussion with Dr Pena and Shantelle Will go home with a heart monitor. Follow up in the TAVR clinic Kayla Lentz MD 01/18/2024 3:08 PM documented in this encounter Discharge Instructions * Discharge Instr - AVS* Alma Carrington DO - 01/16/2024 3:00 PM EDT Discharge Date: 01/18/2024 The information below provides you with the instructions and the list of medications you need to betaking following discharge from the hospital. If you have any questions, please ask before leaving.Please carry this letter with you when you see your doctor in the clinic. If you have questions, you can reach us at the numbers above. YOUR HOSPITAL PROVIDERS: Discharging Physician: Kayla Lentz MD Fellow Physician: Janine Espino DO Resident Physician: Alma Carrington DO Department: Cardiology IF YOU HAVE QUESTIONS: You may call the Department of Cardiology at [phone] m-f during business hours for any questions or test results. For after-hours emergencies call [phone] and have your doctor paged. Scheduling services is available between the hours of 8:00 am and 9:00 pm by calling . For routine questions, your [facility] Cardiology Team prefers the use of Recite Me. Recite Me is an online internet tool to help you meet your health care needs quickly by providing a secure, confidential way to view your health records and communicate with your [facility] Cardiology Team. To sign up for Recite Me go to [email or web address], "Click" [place] Now on the right side of the screen and complete the user registration information. A BRIEF SUMMARY OF YOUR HOSPITAL STAY: You were admitted to the hospital after you presented for an outpatient procedure to replace your heart valve (aortic valve). You underwent placement of 29 Robert 3 resilia valve. You underwent this procedure without any significant complications. After the procedure your labs, EKG and images (chest x-ray and ultrasound of your) were found to be within normal limits. You were discharged in a stable condition back to home. Instructions and medication changes are listed below. You will follow up with the valve clinic in 1 week. Please see your PCP within 1 week. See below for additional information. Please START taking the following medications -Aspirin 81 mg: take 1 tablet daily Please note the following CHANGES to your previous medications -Eliquis: please HOLD this medication and RESTART 5 mg 1 tablet twice daily on the morning of 01/18 -Metoprolol Succinate: Decreased from 50 mg daily to 25 mg take 1 tablet daily (or 1/2 tablet of 50mg tablet) Please STOP taking the following medications -none Please continue taking all other medications as previously prescribed. Your main diagnosis at discharge was: Severe symptomatic aortic stenosis and transcatheter aortic valve replacement procedure Operations & Procedures performed: Transcatheter aortic valve replacement on 01/16/2024 Complications: briefly had episode of low heart rates requiring a temporary pacemaker with resolution and no further episodes Inpatient test results that are pending at discharge: none YOUR FOLLOW UP APPOINTMENTS: Primary Care Provider Information: PCP: [place] [address] [phone] An appointment was requested with your PCP for within 1-2 weeks of discharge from the hospital. (Please take this form to this visit with your primary care physician.) Cardiology follow-up: Be sure to come in for all scheduled follow up visits. You will be seen in valve clinic: One week post procedure One month post procedure with an echocardiogram to check your new valve Six months post procedure One year post procedure with an echocardiogram to check you new valve Yearly thereafter with echocardiograms You should have regular follow up with your primary sed special education teacher who will continue to manage your regular cardiac care. Schedule an appointment approximately 3 months after discharge. You need the following studies in the future: nba. Place go to [facility] Special Instructions: - Aspirin - You need to take aspirin. The preferred dose of aspirin is 81 mg per day (one baby aspirin). Use the non-coated kind. You should continue to take aspirin forever unless specifically told to stop. - Statin Drugs (cholesterol pill) slow the growth of heart artery blockages. Your statin drug is Lipitor. - Beta blockers are important for some cardiac patients and after a heart attack. Your beta blockeris toprol - Do not use Motrin/Ibuprofen/Advil and other types of "NSAIDs" (nonsteroidal anti-inflammatory drugs) - "NSAIDs" make aspirin ineffective, can raise blood pressure, and can damage your kidneys. Try Tylenol for pain. Consult your pharmacist for questions about "NSAIDs".. Leg Puncture Site Care You may shower, but do not take any baths, go in a hot tub or swim for 7 days. The hole in your leg artery is still healing and may be sore for a week. You may develop a large bruise, which will travel down your leg over the next few weeks. This is normal. If you have sudden pain or swelling or bleeding, call 911 and hold pressure on the area. If you notice worsening pain or swelling in the area that is not relieved by Tylenol or if you develop a fever over 101 degrees F you should call your sed special education teacher. If you have questions or are concerned about how your leg is healing, call the doctor who did the procedure or . Keep the site covered with a dry bandage for 24 hours then remove the bandage. You may keep the site covered until it has completely healed but it is not necessary. If you replace the bandage, it should be changed every 24 hours or if it becomes wet. Radial Artery Instructions for Post Care Activity: Do not use the arm we used for your procedure today. Do not lift more than 10 lbs for 3 days with arm used for procedure. A responsible adult must be with the patient for 24 hours after your procedure. Rest today but you may resume your usual activity tomorrow. Do not drive, operate any appliances and/or machinery or sign legal documents for 24 hours due to the anesthesia. You may return to work in 24 hours. You may wash the wrist with soap and water and you may shower. Do not soak the wrist in water without a waterproof bandage until the small incision is healed. If you notice bleeding, increased swelling, tingling in the fingers or pain in your forearm that is not relieved by Tylenol, please seek medical attention. If you develop a fever over 101 degrees F you should contact your sed special education teacher. It is normal to have a small amount of discomfort for up to one week following your procedure but this should continue to improve with time, not worsen. If you have any questions or are concerned with how your arm is healing, call the doctor who did your procedure at . Keep the puncture site covered with a dry bandage for 24 hours, then remove the bandage. You shouldreplace it every 24 hours or if it gets wet. This should be done until the puncture site has completely healed. Cardiovascular RISK FACTOR control YOUR RISK FACTOR TREATMENT GOALS: Controlling the factors that cause arteries to form blockages will reduce your chance of having new blockages. Work with your health care providers to control your risk factors. If you have trouble reaching these goals then ask your health care provider to work with you further until they are controlled. Diabetes - In diabetics, hemoglobin A1C is a measure of the average blood sugar over the past 3 months. The goal is less than 7.0. Hypertension - Goal is less than 120/80. High cholesterol LDL cholesterol (bad cholesterol) - goal is less than 70 mg/dl. HDL cholesterol (good cholesterol) - goal is greater than 40 mg/dl in men and 50 mg/dl in women. Triglycerides (other blood fats that are especially elevated in diabetics and pre-diabetics) - goalis less than 150 mg/dl. Your Lipid Panel Results are: Results for orders placed or performed in visit on 08/14/23 LIPID PANEL WITH DIRECT LDL IF TG IS HIGH Result Value Ref Range Triglycerides 42 <=174 mg/dL Cholesterol 132 <200 mg/dL HDL Cholesterol 90 >39 mg/dL Non-HDL Cholesterol 42 <=159 mg/dL LDL Cholesterol 34 <=129 mg/dL Tobacco - Tobacco is poison to your arteries. It will cause blockages. Continuing to smoke tobacco may lead to heart attacks, strokes, or leg amputation. You should avoid tobacco. Your goal is to notsmoke at all. Talk with your primary care provider about counseling and medications to help you stop smoking. Exercise - The [employer] recommends walking 30 minutes a day most days of the week; if you have to lose weight you should walk 60-90 minutes a day. Remember that if you develop chestpain, you should stop what you are doing. Do not continue to exercise if you have chest pain. See your special activity instructions above. [place] weight - Your BMI (a measure of ideal body weight) is Body mass index is 33.52 kg/m.. Your BMI should be less than 25. Your waist size also predicts risk of heart attack: a woman's waist should be less than 35 inches and a man's waist less than 40. Maintaining your ideal body weight will help your heart, reduce blood pressure, blood sugar, and cholesterol, improve or help prevent diabetes, and improve or help prevent congestive heart failure. SPECIAL TAVR INSTRUCTIONS: Activity * The following activities are restricted until you are seen in clinic for you post procedure check(approximately 1 week). o Do not drive o Do not lift anything heavier than 10 pounds o No heavy chores (housekeeping, lawn/yard care, etc.) * There is no restriction on climbing stairs. Climb them at a comfortable pace. * Get up in the morning and dress in your regular, every day clothes. * Gradually get back into your daily routine. Ordinary activities such as dressing, showering and grooming may make you tired during your first days at home. Spread your activities out over the day and take frequent rest periods. * The more you are up and about the quicker you will be able to resume your daily activities. o Look for opportunities to move around and try to increase your activity level by small amounts every day. o Concentrate initially on increasing the amount of time you are doing an activity (not how fast you do the activity). o Start with short walks several times a day and progress as you are able. * During hot and humid weather, walk indoors or during the coolest part of the day (ruby software developer, late evening). * During cold weather, walk indoors or during the warmest part of the day (afternoons). * Sit up in a chair as often as possible. * Support stockings o These stockings are used to prevent postoperative leg swelling and blood clots. o Put on clean stockings in the morning and remove them at night. o When putting them back on, get all the wrinkles out. o Wear the stockings until your ankles and legs are no longer swollen. * Consider a cardiac rehabilitation program. o This program combines modern equipment and techniques with individual counseling and instructionsby exercise physiologists and nurses. o Cardiac rehabilitation generally starts about one month after going home. o If you have not heard about or been contacted by a cardiac rehabilitation program after going home, please contact your heart team or discuss with your provider at your one-month office post procedure office visit. Procedure Site * Normal occurrences at procedure sites: o Soreness o Small amount of drainage o Bruising that extends several inches around the site o One or two small lumps (about the size of a marble) at the site o Usually any discomfort or swelling at the site will gradually return to normal over the next month * A small bandage or Band-Aid will be placed over the area where the catheter(s) have been removed. o The dressing should be removed the day after discharge. o It is important to keep the area clean and dry o You may shower the day after your procedure. o Wash with soap and water, pat the incision dry. o Avoid lotions or creams at incision site. o Leave the area open to air. o Apply a Band-Aid if there is some drainage or oozing. o Avoid tub baths for 5-7 days. * It is important to check the site for signs of infection or complications o If you are unable to see the site, have someone look at it for you. o Signs of infection include: drainage (pus), fever and/or chills. o Some soreness at the site is normal. Tylenol may be taken for this soreness unless otherwise instructed by your physician. o If you think that the site may be infected, notify your physician. o If you have severe pain at the procedure site, a throbbing lump under the skin, numbness, loss offeeling or change in color of the extremity below the procedure site, notify your physician. o You may notice a drop or two of blood on the dressing, this is generally not a problem. If more significant bleeding occurs, put pressure on the site with your hand and seek medical attention immediately. o If a large lump is felt, if you have increased pain at the site, or if the bruise and/or lump areincreasing in size, notify your physician. o Extensive bleeding at the procedure site or a lump which is expanding quickly is an emergency. Call 911 for an ambulance to take you to the nearest emergency room. Lie down then apply firm pressuredirectly over the site, holding pressure until emergency personnel have arrived. Medications * Your medications and/or dose of prior medications may change when you are discharged. * Pay special attention to the medication section of your discharge instructions and make sure you make the appropriate changes to your home regimen. * You may be prescribed antiplatelet medications (usually Plavix/clopidogrel and/or Aspirin). Thesemedications make platelets (cells used to help blood clot) in your blood less sticky. o Plavix is usually taken for 3 months, unless otherwise instructed by your doctor, and aspirin will be lifelong. o Do not discontinue these medications unless directed by your physician Protect your new heart valve * Protective (or prophylactic) antibiotics may need to be taken prior to dental procedures, surgeryand some diagnostic tests and invasive procedures to prevent infection from developing around your new heart valve. Check with your physician prior to undergoing any procedure. * The type of valve you have is 29 Robert 3 resilia valve, please write this information down and carry it with you at all times. o Carry this information at all times and show it to any physician or dentist who treats you. o Consider obtaining some type of identification bracelet to inform medical personnel about your valve type. o If you need an MRI in the future, show this information to your provider to determine if the valve you received is MRI compatible. 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 On 01/16/2024, patient presented to [facility] from home for elective TAVR. Patient overall tolerated procedure well. Interval History: Yesterday afternoon, paged to bedside due to patient sudden altered mentation and bradycardia into 20s-30s. On our arrival, patient back to baseline mentation with HR 50s-60s, MAP >65. Examinationwithout any focal neurologic findings, groin access sites intact. ECG at that time showed AF with slow ventricular response. Later on in the evening, patient did have another 7-second pause with concurrent altered mentation and decision was made to place temp wire. Post-procedure, has remained afebrile, hemodynamically stable on room air. No reported pain on Tylenol ATC. This morning, lying in bed with noc BiPAP in place. No acute complaints. No chest pain, palpitations. shortness of breath, dizziness, or headache. Relevant Cardiac and Medical History: Cardiac History: Non-rheumatic , HFrEF, chronic AF, CAD, HLD Follows with BENJAMIN Wilkins ([facility]) 11/04/21 Cardiac Cath Mild, non-obstructive CAD with 20% distal LMCA stenosis and luminal irregularities in LAD. Circumflex and dominant RCA are angiographically normal. Right and left heart catheterization show normal cardiac filling pressures and no evidence of constriction. There is no sign of discordance during simultaneous RV/LV pressure measurements. There is moderate AV stenosis based on invasive AV assessment: Calculated KATHRYN 1.5 cm2, mean PG 35 mmHg mean RA 5 mmHg PA 30/9, mean 19 mmHg mean PCWP 11 mmHg and LVEDP 10 mmHg PA saturation 62%; Ao Sat 88% * Assumed Kady CO 8 L/min; index 3.4 11/08/23 GALI The qualitative LV ejection fraction is 50-54% (normal). No LV segmental wall motion abnormalities. Moderate mitral regurgitation is present. Borderline severe aortic valve stenosis is present with KATHRYN of 1.0 cm^2 and a dimensionless velocity index of 0.25 The proximal ascending thoracic aorta is mildly enlarged. 11/08/23 Stress echo protocol was done. Nondiagnostic submaximal Stress EKG due to failure to reach 85% age predictedheart rate. Occasional PVCs were noted with stress. Ventricular couplets were noted with stress. Ventricular bigeminy was noted with stress. Atrial fibrillation was noted at rest. Diffuse non-specific T-wave changes were noted at rest. The stress test was terminated due to end of protocol. No symptoms were noted. Blood pressure response to exercise was normal. 11/27/23 Cardiac Cath Distal LMCA 20% stenosis. Similar to prior angiogram Otherwise angiographically normal coronaries 01/16/24 (this admission) TAVR #29 mm Quesada-Robert S3 Ultra Resilia Valve 01/16/24 (this admission) Temp wire placement No recent ED visits or hospital admissions OBJECTIVE Intake / Output: Intake/Output Summary (Last 24 hours) at 01/17/2024 1201 Last data filed at 01/17/2024 0600 Gross per 24 hour Intake 1080 ml Output 100 ml Net 980 ml Vitals: BP: 134 mmHg/87 mmHg (01/17/24 1100) Pulse: 75 (01/17/24 1100) Temp: 37.22 C (01/17/24 0800) Temp Summary: Temp Min: 36.1 C (97 F) Max: 37.2 C (99 F) SpO2: 92 % (01/17/24 1100) O2 flow rate: 2 L/MIN (01/16/241999) Supplemental O2 Delivery: Non-Invasive CPAP/BiPAP (05/15/24 0800) Height & Weight: Height: 175.3 cm (5' 9") (01/16/24 1132) Weight: 114 kg (251 lb 5.2 oz) (01/17/24 0600) Weight change: Body mass index is 37.11 kg/m. Constitutional: no acute distress, nontoxic appearing. Cardiovascular: normal rate, irregularly irregular rhythm, no murmurs, rubs, or gallops. Pulmonary: no respiratory distress, symmetric chest rise, trachea midline, good air entry, no wheezes, no rales, no rhonchi, baseline belly breathing . Abdomen: soft, non-distended, no abdominal tenderness to palpation, no rebound, no rigidity, no guarding, bowel sounds present. Extremities: no cyanosis, no significant upper or lower extremity edema, left groin access soft with punctate ooze under tegaderm dressing, right groin access soft with diffuse ecchymosis with subcentimeter ooze under tegaderm dressing . Neurological: Awake, alert, and answering questions appropriately. Oriented to person, place, time,and situation. Labs: Chemistry Panel: Lab results within last 7 days (see chart for full results) Units 01/17/24 0424 01/16/24 1713 01/16/24 1134 Sodium mmol/L 142 140 141 Potassium mmol/L 4.1 4.1 3.5 Chloride mmol/L 106 104 103 CO2 mmol/L 31 29 26 BUN mg/dL 22* 23* 26* Creatinine mg/dL 1.2 1.2 1.2 Glucose mg/dL 112 96 87 Calcium mg/dL 8.7 8.8 9.5 Magnesium mg/dL 2.4 2.2 -- Anion Gap mmol/L 5* 7 12 Complete Blood Count: Lab results within last 7 days (see chart for full results) Units 01/17/24 0423 01/16/24 1713 01/16/24 1134 WBC K/uL 9.89 10.45 8.50 HGB g/dL 13.5* 14.1 14.7 HCT % 42.8 43.0 45.8 PLT K/uL 145 151 196 MCV fL 97.5 96.4 95.0 Imaging: XR CHEST 1 VIEW Result Date: 01/17/2024 IMPRESSION Postop chest as above. XR CHEST 1 VIEW Result Date: 01/17/2024 IMPRESSION As above. XR CHEST 1 VIEW Result Date: 01/16/2024 IMPRESSION Hypoventilatory changes with no acute cardiopulmonary disease seen. I have personally reviewed this examination and agree with the resident/fellow physician's interpretation. EK01/17/24 AF with slow ventricular response, rate 59, occasional atrial pacing spikes ASSESSMENT & PLAN This is a 73 year old male with history of non-rheumatic , HFrEF, chronic AF, CAD, HLD who presented for elective TAVR. Recovering well postoperatively. Severe Aortic Stenosis s/p TAVR #29 mm Quesada Robert S3 Ultra Resilia 01/16/2024 Atrial fibrillation with slow ventricular response Patient admitted after outpatient TAVR procedure. CXR reviewed. No findings concerning for widened mediastinum, pneumothorax, pulmonary edema. Valve location/position as expected. Required temp wire placement overnight. Patient may require permanent pacemaker ZioPatch upon discharge Echocardiogram ordered for postoperative day #1 (today). EKG ordered for postoperative day #1 (today), reviewed as above Continue to monitor on telemetry for significant change in [place] interval, QRS duration and rhythm as well as evidence of paced beats. Holding RETREAD BUILDER Toprol Systolic blood pressure goal < 160. Resume RETREAD BUILDER Spironolactone today Holding RETREAD BUILDER Torsemide Can use IV medications as needed (Can use PRN Hydralazine and if no improvement can consider starting IV Nitroprusside gtt). If hypotensive be cautious with administration of IVF. Consider phenylephrine/norepinephrine infusion. Antiplatelet Therapy: Continue with Asprin 81 mg daily Vital checks Q4H Incidental Findings: N/A Chronic Conditions: AF: Holding RETREAD BUILDER Toprol and RETREAD BUILDER Eliquis DLD: RETREAD BUILDER Lipitor CARRI: Noc BiPAP FORREST: RETREAD BUILDER ferrous sulfate MDD: RETREAD BUILDER duloxetine Misc: Diet: NPO except meds in anticipation of possible PPM placement Analgesia: Tylenol PRN Nausea: N/A Bowel Regimen: N/A IVF: N/A DVT/VTE Prophylaxis: Subcutaneous Heparin 5,000 units every 8 hours with sequential compression devices (SCDs) - RETREAD BUILDER Eliquis can be re-started 3-4 days post procedure. PT/OT: N/A Lines / Drains / Airway: PIV Code Status: Full Code Disposition: keep in ICU The patient will be discussed with Dr. Hernandez Lau DO . Sherly Hannah DO PGY-1 Anesthesiology [facility] Cardiology 01/17/2024 12:01 PM I saw and evaluated the patient today. I have reviewed the trainee note and agree. Pt is a 73 y/o M w/ PMHx , COPD, CARRI, anemia who was admitted 01-16-24 following implantation of a#29 Quesada Robert S3 TAVR. Last evening had bradycardia w/ HR in 20's with a 7 second ventricular pause (Afib) resulting in a TVP. Did pace some overnight but back up HR set at 50 bpm. Reduce back up HR on TVP and monitor. Discuss with Dr Pena PPM vs monitoring. * Nila Boykin RN - 01/16/2024 1:40 PM EDT Patient heart rate at mid 50's to low 60's and the rhythm is atrial fibrillation, this is upon [facility] for T[facility]R procedure; confirmed with anesthesia that this is also what his rhythm and heart rate has been prior to the procedure. 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 On 01/16/2024, patient presented to [facility] from home for elective TAVR. Patient overall tolerated procedure well. Device implanted: #29 mm Quesada-Robert S3 Ultra Resilia Valve Arrhythmia: None Notable findings: right femoral artery required Perclose device x 2 Temp wire was placed in the right femoral vein and removed at end of procedure Valve access was gained via 6 Monegasque catheter in the right femoral artery. Patient seen in CRS postoperatively. He is lying flat on non-rebreather 10 L/min, which he states is because he has difficulty breathing when lying flat. Denies headache, dizziness, chest pain, abdominal pain, nausea, or vomiting. No acute complaints. Patient admitted to [facility] Cardiology for postoperative monitoring s/p TAVR. Lives in [place], [place] with Lexie Zuluaga (significant other). 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 O2 or CPAP: No daytime O2, nighttime BiPAP Pacemaker/Implanted devices: None Walker or Cane: None FULL CODE Would accept a transfusion if needed. Medical decision maker: Lexie Zuluaga (significant other). phone number confirmed and correct in chart. PCP: Chino Leavitt DO Relevant Cardiac and Medical History: Cardiac History: Non-rheumatic , HFrEF, chronic AF, CAD, HLD Follows with BENJAMIN Wilkins ([facility]) 11/04/21 Cardiac Cath Mild, non-obstructive CAD with 20% distal LMCA stenosis and luminal irregularities in LAD. Circumflex and dominant RCA are angiographically normal. Right and left heart catheterization show normal cardiac filling pressures and no evidence of constriction. There is no sign of discordance during simultaneous RV/LV pressure measurements. There is moderate AV stenosis based on invasive AV assessment: Calculated KATHRYN 1.5 cm2, mean PG 35 mmHg mean RA 5 mmHg PA 30/9, mean 19 mmHg mean PCWP 11 mmHg and LVEDP 10 mmHg PA saturation 62%; Ao Sat 88% * Assumed Kady CO 8 L/min; index 3.4 11/08/23 GALI The qualitative LV ejection fraction is 50-54% (normal). No LV segmental wall motion abnormalities. Moderate mitral regurgitation is present. Borderline severe aortic valve stenosis is present with KATHRYN of 1.0 cm^2 and a dimensionless velocity index of 0.25 The proximal ascending thoracic aorta is mildly enlarged. 11/08/23 Stress echo protocol was done. Nondiagnostic submaximal Stress EKG due to failure to reach 85% age predictedheart rate. Occasional PVCs were noted with stress. Ventricular couplets were noted with stress. Ventricular bigeminy was noted with stress. Atrial fibrillation was noted at rest. Diffuse non-specific T-wave changes were noted at rest. The stress test was terminated due to end of protocol. No symptoms were noted. Blood pressure response to exercise was normal. 11/27/23 Cardiac Cath Distal LMCA 20% stenosis. 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[facility]) Non-occlusive coronary artery disease Nonrheumatic aortic valve stenosis Pulmonary arterial hypertension ([facility]) Sleep apnea, obstructive Surgical History: Past Surgical History: Procedure Laterality Date CORONARY ANGIOGRAPHY W/LEFT HEART CATH N/A 11/27/2023 CORONARY ANGIOGRAPHY W/LEFT HEART CATH performed by Madeleine Pena MD at [facility]ARDI[facility]S [facility] CORONARY ANGIOGRAPHY W/RIGHT+LEFT CATH 11/04/2021 CORONARY ANGIOGRAPHY W/RIGHT+LEFT CATH performed by Kevin Espino DO at [facility] [place] CYSTO W/INSERT URETERAL STENT Left 2021 Family History: Family History Problem Relation Age of Onset Cancer Mother breast Hypertension Mother COPD Father Hypertension Sister Other ( of accidental electricution) Brother Celiac disease Brother Social History: Social History Socioeconomic History Marital status: Significant Other Tobacco Use Smoking status: Former Current packs/day: 0.00 Average packs/day: 1.5 packs/day for 24.0 years (36.0 ttl pk-yrs) Types: Cigarettes Start date: 1964 Quit date: 1988 Years since quittin.3 Passive exposure: Past Smokeless tobacco: Never Vaping Use Vaping Use: Never used Substance and Sexual Activity Alcohol use: Yes Comment: Rarely, maybe 2 drinks at most per week Drug use: Never Sexual activity: Yes Partners: Female Social History Narrative 1 dogs and 4 cats No mold Geothermal heat Central air conditioning Social Determinants of Health Food Insecurity: No Food Insecurity (08/13/2023) Hunger Vital Sign Worried About Running Out of Food in the Last Year: Never true Ran Out of Food in the Last Year: Never true Medications: Prior to Admission medications Medication Sig Last Dose Discont. Tamsulosin HCl 0.4 MG Oral Capsule (Flomax) Take 1 Capsule by mouth in the morning. 01/15/2024 Atorvastatin Calcium 40 MG Oral Tablet (Lipitor) Take 1 Tablet by mouth in the morning. 01/16/2024 Diclofenac Sodium 1 % External Gel (Voltaren) Apply topically to affected area. Apply to right hip and knee 01/15/2024 Fluorouracil 5 % External Cream (Efudex) Apply to site on the right cheek twice daily x 2 weeks Past Month Triamcinolone Acetonide 0.1 % External Cream (Aristocort) Apply to affected area on forearm twice daily for up to two weeks if needed for itching Past Month Metoprolol Succinate ER 50 MG Oral Tablet Extended Release 24 Hour (Toprol XL) Take 1.5 Tablets by mouth in the morning. Patient taking differently: Take 1 Tablet by mouth in the morning. 01/15/2024 NATURAL SUPPLEMENT Take 20 mg by mouth in the morning and 20 mg before bedtime. CBD oil. 01/15/2024 Potassium Chloride Christina ER 10 MEQ Oral Tablet Extended Release Take 1 Tablet by mouth in the morning. 01/16/2024 Spironolactone 25 MG Oral Tablet (Aldactone) Take 1 Tablet by mouth in the morning. 01/15/2024 Iron 325 (65 Fe) MG Oral Tablet Take 1 Tablet by mouth in the morning. 01/15/2024 Torsemide 20 MG Oral Tablet (Demadex) TAKE 2 TABLETS DAILY FIRST THING IN THE MORNING 01/15/2024 DULoxetine HCl 60 MG Oral Capsule Delayed Release Particles Take 1 Capsule by mouth every evening. 01/15/2024 Acetaminophen 500 MG Oral Tablet (Tylenol) Take 2 Tablets by mouth 2 times a day as needed. Past Month Ascorbic Acid 250 MG Oral Tablet Take 1 Tablet by mouth in the morning. 01/15/2024 BiPAP every night at bedtime. 18/7 cm 01/15/2024 B-12 500 MCG Oral Tablet Take 1 Capsule by mouth in the morning. 01/15/2024 Co Q 10 10 MG Oral Capsule Take by mouth 1 Capsule daily . 01/15/2024 Eqaiakuggbs-Oewgeznzs-Hks C-Mn (GLUCOSAMINE CHONDR 500 COMPLEX) Capsule Take 1 Capsule by mouth every morning. 01/15/2024 Multiple Vitamin (MULTI-DAY VITAMINS) Tablet Take 1 Tab by mouth daily. 01/15/2024 [place] 3 1000 MG CAPS Take 1 Capsule by mouth daily. 01/15/2024 Apixaban 5 MG Oral Tablet (Eliquis) Take 1 Tablet by mouth in the morning and 1 Tablet before bedtime. 01/13/2024 metOLazone 5 MG Oral Tablet (Zaroxolyn) Take 1 Tablet by mouth as needed for Dyspnea. As needed average is about once every 10 days per patient 01/02/2024 Albuterol Sulfate HFA 108 (90 Base) MCG/ACT Inhalation Aerosol Solution as needed. Over 30 Days Prior to admission medications reviewed. Allergies: Patient has no known allergies. Review of Systems: As per HPI OBJECTIVE Intake / Output: Intake/Output Summary (Last 24 hours) at 01/16/2024 1607 Last data filed at 01/16/2024 1504 Gross per 24 hour Intake 600 ml Output 100 ml Net 500 ml Vitals: BP 111/67 | Pulse 55 | Temp 36.1 C (97 F) (Tympanic) | Resp 20 | Ht 1.753 m (5' 9") | Wt 115.7 kg (255 lb) | SpO2 89% | BMI 37.66 kg/m | BSA 2.37 m Physical Examination: Constitutional: no acute distress, nontoxic appearing. Head: normocephalic, atraumatic. Eyes: Pupils 3 mm and reactive to light, extraocular movements intact. Ears, nose, throat: moist mucous membranes, no nasal discharge. Chest wall: no chest wall tenderness or deformity. Cardiovascular: normal rate, irregularly irregular rhythm. Pulmonary: no respiratory distress, symmetric chest rise, trachea midline, good air entry. Abdomen: soft, non-distended, no abdominal tenderness to palpation, no rebound, no rigidity, no guarding. Genitourinary: deferred . Extremities: no cyanosis, no significant upper or lower extremity edema. Musculoskeletal: no visible deformities, 5/5 strength in bilateral upper extremities, bilateral lower extremities deferred due to need to stay flat . Neurological: Awake, alert, and answering questions appropriately. Skin: warm, dry. Access Site: right femoral and left femoral access sites with minimal punctate ooze under CHG tegaderm, bilateral groins soft without palpable hematoma Labs: Chemistry Panel: Lab results within last 7 days (see chart for full results) Units 01/16/24 1134 01/12/24 1347 Sodium mmol/L 141 144 Potassium mmol/L 3.5 4.3 Chloride mmol/L 103 99 CO2 mmol/L 26 32 BUN mg/dL 26* 28* Creatinine mg/dL 1.2 1.3* Glucose mg/dL 87 100 Calcium mg/dL 9.5 10.0 Anion Gap mmol/L 12 13 Complete Blood Count: Lab results within last 7 days (see chart for full results) Units 01/16/24 1134 01/12/24 1347 WBC K/uL 8.50 7.04 HGB g/dL 14.7 15.6 HCT % 45.8 48.7* PLT K/uL 196 211 MCV fL 95.0 94.4 Cardiac Studies: Lab results within last 7 days (see chart for full results) Units 01/16/24 1134 BNP, NT-Pro pg/mL 1,238* Imaging: No imaging results in the last 24 hours ASSESSMENT & PLAN This is a 73 year old male with history of non-rheumatic , HFrEF, chronic AF, CAD, HLD who presented for elective TAVR. Recovering well postoperatively. Severe Aortic Stenosis s/p TAVR #29 mm Quesada Robert S3 Ultra Resilia 01/16/2024 Patient admitted after outpatient TAVR procedure. Post procedure CXR ordered. Monitor for widened mediastinum, pneumothorax, valve location/position, and pulmonary edema. CXR reviewed. No findings concerning for widened mediastinum, pneumothorax, pulmonary edema. Valve location/position as expected. Post procedure EKG ordered. Per protocol, any significant change in NJ interval, QRS duration and rhythm will prompt a temporary pacemaker implantation. Patient may require ZioPatch upon discharge if patient develops new conduction disturbances that don't require a permanent pacemaker. Post procedure labs ordered. Echocardiogram ordered for postoperative day #1 (tomorrow). EKG ordered for postoperative day #1 (tomorrow). Continue to monitor on telemetry for significant change in NJ interval, QRS duration and rhythm as well as evidence of paced beats. Holding RETREAD BUILDER Toprol Systolic blood pressure goal < 160. Resume RETREAD BUILDER Spironolactone tomorrow Holding RETREAD BUILDER Torsemide Can use IV medications as needed (Can use PRN Hydralazine and if no improvement can consider starting IV Nitroprusside gtt). If hypotensive be cautious with administration of IVF. Consider phenylephrine/norepinephrine infusion. Antiplatelet Therapy: Continue with Asprin 81 mg daily Patient Activity: Patients must lay flat for six hours post-procedure (reverse trendelenburg is okay) and can sit up afterwards if there's no bleeding, with groin monitoring upon movement. Vital checks [id number] x4, [id number] x4, Q1H x4, then Q4H Neuro checks Q1H x6 Incidental Findings: N/A Chronic Conditions: AF: Holding RETREAD BUILDER Toprol and RETREAD BUILDER Eliquis DLD: RETREAD BUILDER Lipitor CARRI: Noc BiPAP FORREST: RETREAD BUILDER ferrous sulfate MDD: RETREAD BUILDER duloxetine Misc: Diet: Clear liquid diet Start with clear liquid diet and progress to a heart-healthy diet/consistent carb diet as tolerated(after six hours when safely able to sit up). Analgesia: Tylenol PRN Nausea: N/A Bowel Regimen: N/A IVF: N/A DVT/VTE Prophylaxis: Subcutaneous Heparin 5,000 units every 8 hours with sequential compression devices (SCDs) - RETREAD BUILDER Eliquis can be re-started 3-4 days post procedure. PT/OT: N/A Lines / Drains / Airway: PIV Code Status: Full Code Disposition: Med/Surg - possible discharge tomorrow 01/17/2024 Family Communication: Spoke with Lexie Zuluaga (significant other) at bedside. Gave full update regarding condition and treatment plan. They are in agreement. Answered all questions to their satisfaction. Encouraged to call the unit with any questions or concerns. The patient will be discussed with DO Sherly Krause DO PGY-1 Anesthesiology [facility] Cardiology 01/16/2024 4:07 PM Associated attestation - Hernandez Lau DO - 01/17/2024 1:56 PM EDT I saw and evaluated the patient 01-16-24. I have reviewed the trainee note and agree. * Jolly Tobar CRNP - 01/15/2024 8:30 AM EDT Images from the original note were not included. This note has been copied from Dr. Monzon's office visit on 12/20/2023. Progress Notes MalJm rosa PA-C (Physician Termite Inspector - Certified) Physician Termite Inspector Expand All Collapse All HISTORY AND PHYSICAL EXAMINATION - [facility] Name: Josias De Los Santos Date: 12/20/2023 Time: 9:49 AM REFERRING PHYSICIAN: Chino Leavitt DO PCP: Chino Leavitt DO CREDIT UNION FIELD EXAMINER: Becky Preference for return visit: [facility] Follow up with telephone or video visit at one week. HPI: Josias De Los Santos is a 72 year old male who presents with documented severe and moderate MR by GALI in November. He has been having progressive MANNING over the last 14 months or so, needs to rest on stairs which make him SOB. Recent cath revealed nominal CAD.He is on aldactone and torsemide and prnmetolazone. Murmur identified a few years back, and he has been followed routinely since. Remains active. 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 Denies chest pain, pressure, tightness, and/or discomfort. Endorses worsening dyspnea, with stair climbing. One flight of stairs can make him significantly short of breath. He believes that this has been worsening over the past year. Denies dyspnea at rest. Endorses worsening fatigue and decline in overall functional capacity. Sleeping in bed at night, with 1 pillow underneath his head. Denies Orthopnea, PND, and/or cough when lying flat. History of CARRI; complaint with BiPAP therapy. History of Acute on Chronic HF exacerbations, on Metolazone PRN. Last summer, only required dosing once over the course of 3 months. No requiring a dose per week. Denies abdominal bloating and/or sensation of early satiety. Appetite has been good. Denies palpitations and/or sensation of rapid heart beats. Rare lightheadedness. No pre-syncope and/or syncopal events. 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 Umkyegrscma-Giuagczvm-Boz C-Mn (GLUCOSAMINE CHONDR 500 COMPLEX) Capsule Take 1 Capsule by mouth every morning. [place] 3 1000 MG CAPS Take 1 Capsule by mouth daily. Multiple Vitamin (MULTI-DAY VITAMINS) Tablet Take 1 Tab by mouth daily. Albuterol Sulfate HFA 108 (90 Base) MCG/ACT Inhalation Aerosol Solution as needed. Co Q 10 10 MG Oral Capsule Take by mouth 1 Capsule daily . B-12 500 MCG Oral Tablet Take 1 Capsule by mouth in the morning. BiPAP every night at bedtime. 18/7 cm Betamethasone Dipropionate 0.05 % External Cream (Diprosone) as needed. Ascorbic Acid 250 MG Oral Tablet Take 1 Tablet by mouth in the morning. Acetaminophen 500 MG Oral Tablet (Tylenol) Take 2 Tablets by mouth 2 times a day as needed. DULoxetine HCl 60 MG Oral Capsule Delayed Release Particles Take 1 Capsule by mouth every evening. Torsemide 20 MG Oral Tablet (Demadex) TAKE 2 TABLETS DAILY FIRST THING IN THE MORNING 180 Tablet 3 Iron 325 (65 Fe) MG Oral Tablet Take 1 Tablet by mouth in the morning. Zolpidem Tartrate 5 MG Oral Tablet (Ambien) TAKE 1 TABLET AT BEDTIME NEEDED FOR SLEEP (Patient taking differently: Take 1.25 Tablets by mouth at bedtime.) 30 Tablet 0 NATURAL SUPPLEMENT Take 20 mg by mouth in the morning and 20 mg before bedtime. CBD oil. Metoprolol Succinate ER 50 MG Oral Tablet Extended Release 24 Hour (Toprol XL) Take 1.5 Tablets by mouth in the morning. (Patient taking differently: Take 1 Tablet by mouth in the morning.) 135 Tablet 3 Potassium Chloride Christina ER 10 MEQ Oral [...] daily x 2 weeks 40 g 0 CBD [place] 4-3-9-1.2 % External Patch (Fygo-Okudydf-Teaawt Michael-Camph) Apply topically to affected area. metOLazone 5 MG Oral Tablet (Zaroxolyn) Take 1 Tablet by mouth as needed for Dyspnea. As needed average is about once every 10 days per patient Diclofenac Sodium 1 % External Gel (Voltaren) Apply topically to affected area. Apply to right hip and knee Atorvastatin Calcium 40 MG Oral Tablet (Lipitor) Take 1 Tablet by mouth in the morning. 90 Tablet 3 Apixaban 5 MG Oral Tablet (Eliquis) Take 1 Tablet by mouth in the morning and 1 Tablet before bedtime. 180 Tablet 3 No current facility-administered medications for this visit. ALLERGIES: Allergies Patient has no known allergies. PAST MEDICAL HISTORY: Past Medical History Past Medical History: Diagnosis Date Anemia COPD with emphysema ([facility]) Diaphragm dysfunction Heart failure with preserved left ventricular function (HFpEF) ([facility]) Mixed restrictive and obstructive lung disease ([facility]) Non-occlusive coronary artery disease Nonrheumatic aortic valve stenosis Pulmonary arterial hypertension ([facility]) Sleep apnea, obstructive PAST SURGICAL HISTORY: Past Surgical History Past Surgical History: Procedure Laterality Date CORONARY ANGIOGRAPHY W/LEFT HEART CATH N/A 11/27/2023 CORONARY ANGIOGRAPHY W/LEFT HEART CATH performed by Madeleine Pena MD at [facility] CORONARY ANGIOGRAPHY W/RIGHT+LEFT CATH 11/04/2021 CORONARY ANGIOGRAPHY W/RIGHT+LEFT CATH performed by Kevin Espino DO at [facility] [place] CYSTO W/INSERT URETERAL STENT Left 2021 Hx of vein harvest or stripping?: no SOCIAL HISTORY: Drug Use: never Social History Social History Tobacco Use Smoking status: Former Current packs/day: 0.00 Average packs/day: 1.5 packs/day for 24.0 years (36.0 ttl pk-yrs) Types: Cigarettes Start date: 1964 Quit date: 1988 Years since quittin.3 Passive exposure: Past Smokeless tobacco: Never Vaping Use Vaping Use: Never used Substance Use Topics Alcohol use: Yes Comment: Rarely, maybe 2 drinks at most per week Drug use: Never FAMILY HISTORY: Family History Problem Relation Age of Onset Cancer Mother breast Hypertension Mother COPD Father Hypertension Sister Other ( of accidental electricution) Brother Celiac disease Brother Family History of premature CAD: no REVIEW OF SYSTEMS: Constitutional: denies weight loss, denies fever, denies shaking chills Eyes: reports cataracts, denies galucoma Ear, nose and throat: denies decreased hearing, denies trouble swallowing Dental: q 90 day visits Cardiac: afib on eliquis,reduced energy level Vascular: no claudication Respiratory: COPD,CARRI on bipap, former smoker,admits to MANNING and SOB,paralyzed diaphragm following urosepsis 2020 Has seen pulmonary specialists at [facility] -, has seen some improvement of his lung function since then. Gastrointestinal: denies constipation, denies diarrhea, denies blood in bowel movements Genitourinary: hx of UTI in the past associated with renal stones, denies nocturia Musculoskeletal: pending right hip and left knee replacement Psychiatric: denies depression, denies anxiety Skin: denies rash, denies non-healing ulcers Neurologic: denies trouble speaking, denies syncope, denies weakness Endocrine: denies DM or thyroid symptoms Hematologic / Lymphatic: denies blood clotting problems, denies anemia, eliquis 5 mg BID Immunologic: trouble fighting infections CARDIOTHORACIC COMPLETE PHYSICAL EXAM: Most Recent Vital Signs: BP 152/80 | Pulse 64 | Ht 1.753 m (5' 9") | Wt 117.6 kg (259 lb 4.8 oz) | SpO2 95% | BMI 38.29 kg/m | BSA 2.39 m PHYSICAL EXAM: General: no acute distress and younger than stated age Head: normocephalic, no masses, lesions, tenderness or abnormalities Eyes: conjunctiva are pink and non-injected, sclera clear, PERRLA, EOMI Nose: normal Teeth: teeth present without obvious periodontal disease, 1 missing implant upper maxilla Neck: supple, no adenopathy, no bruits, thyroid normal size, non-tender, without nodularity, normaljugular venous pulse, no hepatojugular reflux Chest: normal shape and normal respiratory effort Lungs: clear to auscultation and percussion Cardiac Exam: regular rate & rhythm A systolic murmur is present - holosystolic, grade 3/6, upper left sternal border, upper right sternal border, radiation to the neck Pulses: The following pulses are normal: carotids, femorals, abdominal aorta, radials, dorsalis pedis pulses, and posterior tibials Abdomen: abdomen soft, non-tender, no abnormal masses, and no hepatosplenomegaly Musculoskeletal: no gait disturbance, no joint inflammation, no deforming arthritis Extremities: no edema, no clubbing, and no cyanosis Neuro: grossly normal exam Veins GSV appears adequate bilaterally STUDIES: Cardiac Cath Data: 11/27/2023 Additional Findings: Coronary disease - hemodynamically insignificant Distal LMCA 20% stenosis. Similar to prior angiogram Otherwise angiographically normal coronaries R radial artery access s/p TR band Echocardiogram: 11/08/2023 Interpretation Summary The examination is adequate to evaluate the referral indication. The qualitative LV ejection fraction is 50-54% (normal). No LV segmental wall motion abnormalities. Moderate mitral regurgitation is present. Borderline severe aortic valve stenosis is present with KATHRYN of 1.0 cm^2 and a dimensionless velocity index of 0.25 The proximal ascending thoracic aorta is mildly enlarged. 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 Josias De Los Santos is a 73-year-old male with past medical history significant for COPD, atrial fibrillation, pulmonary hypertension and known heart murmur who has noticed increasing shortness of breath,dyspnea on exertion and increasing fatigue. Echocardiogram shows progression of his aortic stenosisto a severe degree. Left ventricular systolic function is preserved. Coronary angiogram was negative for obstructive coronary disease. We have been asked to see him in consideration for aortic valve replacement therapy. A TAVR CT scan performed earlier today shows adequate femoral access. The coronary heights have not yet been reconstructed. Josias is a 73-year-old male with symptomatic severe aortic stenosis. I believe he would benefit from aortic valve replacement therapy. He is very functional and I would be a suitable candidate for either surgical aortic valve replacement or transcatheter valve therapy. I had a long discussion with Josias about both approaches. We discussed the advantages and disadvantages of both SAVR and TAVR. After much consideration Josias has decided he would like to proceed with transcatheter valve therapy.We will evaluate the coronary heights on CT scan once they are available and review them with the structural heart team. We will plan TAVR should all agree. If TAVR is not feasible he would certainlybe a reasonable candidate for surgical aortic valve replacement. Eugene Monzon MD Cardiac Surgery [facility] documented in this encounter Procedure Notes * Madeleine Pena MD - 01/16/2024 3:13 PM EDT Josias De Los Santos 73 year old [id number] 01/16/24 TRANSCATHETER AORTIC VALVE REPLACEMENT STAFF PHYSICIANS: 1. Dr. Pena 2. Dr. Joe The attending physicians were present for the following: Vascular access Catheter placement Diagnostic Intervention Device implantation Vascular closure Intraprocedural medication ordering ASSISTING PHYSICIANS: 1. Luke Adam DO INDICATION FOR PROCEDURE: Severe Symptomatic Aortic Stenosis PROCEDURES: Successful transfemoral implantation of a # 29mm Quesada Robert S3 Ultra resilia valve Placement of temporary venous pacemaker Arterial access site closure with dual Perclose Proglide devices Selective angiography of the right common iliac artery PROCEDURAL DETAILS: The patient was counseled extensively regarding the risks, benefits, and alternatives to the procedure and after answering all questions, the patient yielded informed consent. Thepatient was thereafter brought to the operative suite and monitored anesthesia care was delivered. Preprocedural antibiotic was administered intravenously. Sterile technique was used throughout the case. All vascular access was obtained using modified Seldinger technique. 7F sheath was placed in the right femoral vein. 5 F sheath was placed in the left femoral artery (hence referred to as contralateral access side). 6F sheath was placed in the right femoral artery (hence referred to as valve access side). Next, a temporary pacing wire was placed in the right ventricle via the sheath in the femoral vein. The valve access site was the right femoral artery. A 5F pigtail catheter was placed in the LFA and positioned in the aortic arch. The pigtail catheter was subsequently advanced into the aortic root and positioned in the non coronary cusp. The 6F sheath in the access side was removed and the arteriotomy was preclosed with two Perclose Proglide devices. After preclosure, the access site was upsized directly to a 16F delivery sheath overa Lunderquist wire. After securing the delivery sheath, a 6 F AL1 catheter was advanced to the aortic root. Using a 0.035" straight wire, the aortic valve was crossed. Over the wire, the AL1 catheterwas advanced across the valve. The straight wire was removed and exchanged for a preformed Confida wire. Next, the Quesada-Robert Commander delivery system with a mounted valve was delivered to the ascending aorta. After confirming appropriate placement across the aortic valve using aortic root cookie ogaphy, the #29 mm Quesada-Robert S3 Ultra resilia valve was deployed with rapid ventricular pacingat 180 beats per minute. Following valve deployment, the transthoracic echocardiogram and aortic root angiography revealed a well-placed and well-seated valve, with no evidence of significant aortic regurgitation. Next, the delivery catheter system was removed. The valve access artery device access site was successfully closed using the pre-deployed dual Perclose devices. A 5F pigtail/KAYE catheter was then used for non-selective angiography of the right iliofemoral system revealing normal flow without significant stenosis, dissection, or contrast extravasation. The contralateral femoral sheath was rmeoved with perclose and the venous sheath were pulled and manual compression hemostasis applied. The patient tolerated the procedure well. Madeleine Pena MD MPH Interventional Cardiology Pager: [phone] 01/16/24 3:14 PM * Madeleine Pena MD - 01/16/2024 11:51 AM EDTAssociated Order(s): EKG REASON FOR STUDY: pretavr CONCLUSIONS: Atrial fibrillation Nonspecific T wave abnormality Abnormal ECG When compared with ECG of 27-Nov-2023 10:06, No significant change was found Ventricular Rate: 64 QRS Duration: 88 QT/QTc: 426/439 ms P-R-T [place]: 0 : 32 : 142 degrees documented in this encounter Consult Notes * Mary Jane Leach RN - 01/17/2024 10:06 AM EDTAssociated Order(s): CARE MANAGEMENT CONSULT IP CARE MANAGEMENT - ADULT INITIAL SCREENING [address] [address] Name: Josias De Los Santos Location: [address] Date: 01/17/2024 Time: 10:06 AM Discussed patient with the interdisciplinary care team. This Bottom Sander performed a chart review and met with Josias at bedside to complete admission screen and assessed needs for transition planning. The care clinician role and services were explained and emotional support was provided. Chief Complaint: No chief complaint on file. Prior Living Arrangements What was your living situation prior to admission/observation?: Independently (with significant other) (01/17/241002) Living Quarters: House (01/17/241002) Number of steps to enter living quarters:: 0 (01/17/241002) Do you have serious difficulty walking or climbing stairs? (5 years old or older): No (01/16/241999) History of falling: No (01/17/24799) Prior Level of Functioning Describe the patient's ability prior to admission/observation to perform ADLs: Performs independently (01/17/241002) Describe the patient's mobility status prior to admission: Patient ambulates independently (01/17/241002) Patient uses assistive device: No (01/16/241999) Caregiver Information Patient Contacts Name Relation Home Work Mobile Lexie Zuluaga Significant Other [phone] Risk Stratification/Psychosocial/Care Gaps Risk Stratification Psycho Social / Medical Concerns Identified: Multiple Comorbidities;New serious diagnosis () Accessed [facility] to connect patients to social care resources: No (01/17/241002) OBRA or OPTIONS needed for placement: No (01/17/241002) Readmission Risk Score: 10.46 (01/17/24 08) AM-PAC Score With Stairs : 24 (01/16/24 2200) Prior to Admission Services Services Prior to Admission RETREAD BUILDER Services (Services received within the last 30 days with exception, Psych within last two years): N/A (01/17/241002) [place] Dept[place] of A[place] (PDA) Waiver Program: N/A (01/17/241002) RETREAD BUILDER Transportation (Services received within the last 30 days): Family/Friends Personal Vehicle;Patient drives self (01/17/241002) Outpatient Bottom Sander: No care sales team member to display Patient/Family Expectations: Lives at home with significant other. Has CPAP on RA from home. No other DME. Reports family to provide d/c transportation. For further screening information, please refer to the Care Management flow document. documented in this encounter Nursing Notes * Roberto Alcantara RN - 01/16/2024 8:00 PM EDT Dual Licensed Skin Assessment completed by myself and Marianela Finley RN. The patient is/has a N/A Skin Breakdown (includes non blanchable erythema): No * Kae Iqbal RN - 01/16/2024 7:16 PM EDT 1700 Noted pt's HR dropping to 30's on monitor, Pt suddenly confused to person and time. Dr. Espino and Dr. Carrington paged to bedside. HR quickly resolved in approximately 30 seconds, returning to 50's. Confusion remained for approximately 5 minutes. Neuro exam completed by doctors at bedside. Care assu med by laborer tan house staff. documented in this encounter OR Notes * OR Surgeon - Eugene Joe MD - 01/16/2024 2:17 PM EDT OPERATIVE RECORD CRS Waiting [facility], Cardiac Recovery Suite Waiting Unit, [address] [facility] [address] Josias De Los Santos : 1950 LOCATION: CARDIAC COMPUTER TECHNICAL SPECIALIST DATE: 01/16/2024 PREOPERATIVE DIAGNOSIS: Aortic stenosis POSTOPERATIVE DIAGNOSIS: Aortic stenosis SURGEON: Eugene Pena MD ASSISTANTS: No qualified resident was available to participate in the procedure 2 attending level physicians were co-surgeons for decision-making and equipment management ANESTHESIA: monitored local with sedation OPERATION: TRIPP 29 Robert 3 resilia FINDINGS: Aortic stenosis ESTIMATED BLOOD LOSS: 50 DRAINS: None FLUIDS: 500 mL Crystalloid URINE OUTPUT: Not measured SPECIMEN: None COMPLICATIONS: None CONDITION: Fair INDICATIONS AND HISTORY: 73-year-old with severe aortic stenosis considered for valve replacement therapy DESCRIPTION OF OPERATION: The patient was identified, and the procedure was verified. The patient was brought to the laborer tan house and placed supine on the cath table after adequate level of sedation prepped and draped to include both groins in a sterile operative field. 1% xylocaine without epinephrinehad been infused to create anesthetized rehman in both groins. He has a Seldinger technique the left common femoral artery along with the right common femoral artery and vein were cannulated. Temporary pacing wire was passed through the right common femoral vein and positioned in the right ventricle with the use of fluoroscopy. Thresholds were measured and appreciated to be good. The patient was s ystemically heparinized. A pigtail catheter was passed through the left common femoral artery and positioned in the proximal ascending aorta with the use of fluoroscopy. A Robert access catheter was passed through the right common femoral artery through which a physiologic monitoring catheter was passed and positioned across the aortic valve. Measurements were taken. The catheter was then removedover a wire and a 29 Robert valve mounted on its deployment catheter was passed and positioned across the aortic valve with the use of cineangiography. With the use of rapid ventricular pacing afteran adequate level of heparin anticoagulation had been achieved the valve was deployed without incident. The cineangiography and transthoracic echocardiography verified position and function of the valve. Sheaths catheters and guidewires were removed. The heparin was reversed with protamine and percutaneous closure devices were used to assure hemostasis the cannulation sites were dressed sterilelyand the patient was taken to the PACU in stable condition Eugene Joe MD 01/16/2024 2:18 PM documented in this encounter Miscellaneous Notes * Ancillary Progress Note - Mary Jane Leach RN - 01/18/2024 9:29 AM EDT CARE MANAGEMENT - ADULT DISCHARGE NOTE [facility] [address] Name: Josias De Los Santos Location: [facility] H755/A Date: 01/18/2024 Time: 9:29 AM The following coordination of care and discharge plan has been coordinated with the care team, patient, family and/or caregiver according to the patients needs and preferences. Discharge Discharge Second Notice Important Message from Medicare delivered: Not Applicable (01/18/24927) Discharge Transportation: Family/Friends drive;Personal Vehicle (01/18/24927) Date of scheduled discharge transportation: 01/18/24 (01/18/24927) Patient declined post-hospital transition of care recommendation: N/A (01/18/24927) Final Discharge Plan (Complete only at time of Discharge): Home - Self Care (01/18/24927) Narrative: Josias is discharging home with family. * Communication - Janine Espino DO - 01/18/2024 8:15 AM EDT Brief cardiology note Discussed with EP, a PPM is not indicated. Will take temp wire out, discharge with zio patch Janine Espino DO Spindle Repairer - PGY5 Available on [employer] 01/18/2024 8:16 AM * Ancillary Progress Note - Carlos Diaz Chaplain - 01/17/2024 4:04 PM EDT PROGRESS NOTE - Spiritual Care Contact Information [facility] [address] Name: Josias De Los Santos Location: [facility] H755/A Date: 01/17/2024 Time: 4:05 PM Denominational: Not Available [65] Hoahaoism Affiliations: REASON FOR VISIT: follow-up visit REQUEST RECEIVED FROM: staff member - Name: Chaplain Pierce VISIT LENGTH: 15 minutes REQUEST FACTORS (Nature of Situation): Follow-up Visit FOCUS OF CARE: Patient SPIRITUAL ASSESSMENT: Miesha or Belief System: Did not identify Most Important Need(s) / Concern(s): Anxiety and Suffering Sense of Community and/or Hoahaoism Affiliation: Did not identify Addresses need(s)/concerns(s) and/or di through: Strong coping mechanisms SPIRITUAL CARE PROVIDED: Poultry Packer addressed needs/concerns and/or coping through: [place], Facilitating debriefing, Listening presence, and Supportive dialogue REFERRAL TO: OUTCOMES: [place] ANNOTATION: Completed a laborer tan house alert follow-up visit. Listened as patient shared some of his story. Provided spiritual support, encouragement, and reassurance. Extended blessings to him in his recovery and ongoing journey. Spiritual Care will continue to be available as needed or as requested. * Progress Notes - Non-Billable - Anna Lo DO - 01/16/2024 7:13 PM EDT POST-PROCEDURE CHECK NOTE Name: Josias De Los Santos Date of : 1950 Josias De Los Santos is 73 year old male who underwent temporary wire placement . Patient seen and examined at bedside. Patient is doing well resting comfortably in bed. Denies headache, lightheadedness, chest pain, dyspnea, abdominal pain, N/V/C/D. Post-op Diagnosis: afib with SVR, 7 second pause Physical Examination: BP 132/90 | Pulse 65 | Temp 36.1 C (97 F) (Tympanic) | Resp 20 | Ht 1.753 m (5' 9") | Wt 115.7 kg (255 lb) | SpO2 91% | BMI 37.66 kg/m | BSA 2.37 m Constitutional: Conscious, alert, cooperative and in no immediate distress HEENT: NC/AT, Tongue: moist Chest: Good bilateral air entry, Clear to auscultation Heart: S1 S2 audible, rhythm irregular, paced, no murmurs, clicks or rubs Abdomen: Soft, BS+, non-tender, no rigidity, guarding or rebound Extremities: Warm, pulses+ Psych: AAOx3 Assessment and plan Josias De Los Santos is 73 year old male with history of non-rheumatic , HFrEF, chronic AF, CAD, HLD admitted for elective TAVR. Post procedure patient developed Afib with SVR and altered mentation. Heis now s/p temporary wire placement. - hemodynamically stable - pain control onboard - diet ordered - rest of plan per primary note * Ancillary Progress Note - Diego Funez RCIS - 01/16/2024 7:11 PM EDT [address] [address] Ancillary Progress Note Patient Name: Josias De Los Santos Date: 01/16/2024 Patient will be escorted to [facility], report given to ROBERT Mejia. We performed a Temporary Pacemaker Insertion. The right internal jugular vein was used for access with a 6 Monegasque sheath. Sheath was removed but temp wire was sutured in place. There is no hematoma and no ooze from the cath site noted.StatSeal and Tegaderm dressing applied to site. Distal pulses were palpated and instructions to patient were given. There were no complications during the case. Please see the MAR for the medicationsthat were given. See Cath Procedure Log for patient vitals during the case. * Communication - Janine Espino DO - 01/16/2024 6:52 PM EDT The procedure of temporary pacemaker implant was explained to the patient including the operation, risks and potential benefits. Risks include (but are not limited to) chronic pain at the implant site, bruising and/or bleeding at the site, allergic reaction to or kidney damage from contrast (if used) venous occlusion or damage to the blood vessel, infection, pneumothorax, pericardial tamponade, dislodgement of a wire requiring reoperation, malfunction of the pacemaker, and the very unlikely risks of stroke, heart attack and . The option of not having the operation done and the risks of that alternative was discussed as well. After reviewing all of this information, the decision was made to proceed with implant of the temporary pacemaker. Janine Espino DO Spindle Repairer - PGY5 Available on [employer] 01/16/2024 6:52 PM * Ancillary Progress Note - Jass Pierce Chaplain - 01/16/2024 6:15 PM EDT PROGRESS NOTE - Spiritual Care Level 2 Cath Alert In-House Alerts [address] [address] Name: Josias De Los Santos Location: [facility] H755/A Date: 01/16/2024 Time: 8:26 PM Denominational: Not Available [65] Hoahaoism Affiliations: REASON FOR CONTACT: In-House Alert Response TYPE OF ALERT: Level 2 Cath Alert TIME OF ALERT: 1803 CONTACT LENGTH: 15 CARE PROVIDED: responded to the alert, supported family ANNOTATION: The induction coordination power engineer responded to a Level 2 Cath Alert in CRS-IP. The patient was resting in his bed, with some discomfort that was being addressed by the medical team and with significant other,Lexie Zan. The induction coordination power engineer provided a calm compassionate listening presence with encouraging / comforting dialogue and a prayer. The patient and Lexie thanked the induction coordination power engineer for the visit. The next step in patient care is an alert follow up visits along with support for any emotional or spiritual needs that arise. REFERRED TO LACE AND TEXTILES RESTORER: Duty Poultry Packer; Date - 01/17/2024; Time - 0800 * Progress Notes - Non-Billable - Alma Carrington DO - 01/16/2024 5:39 PM EDT Images from the original note were not included. Was TT at 1703 due to HR dropping to 26 with pause and difficulty with mentation. Arrived at bedside. VS showed nml BP with MAP > 65, HR 56, saturating well on 3L NC. Nursing showed telemetry at time of difficulty mentating as shown below. Repeat EKG performed showing A fib with SVR. Physical exam: Aox3 (oriented to person, place and year. Not month) Bradycardic, no murmurs CTAB Access sites without evidence of hematoma or oozing. Neuro exam: NIH: 1 (month) Zoll placed on patient. BMP, Mag, CBC ordered ?temporary or permanent pacemaker planned * Ancillary Progress Note - Ani Carter RRT - 01/16/2024 4:49 PM EDT PATIENT DRIVEN PROTOCOL - Respiratory Care Services [address] [address] Name: Josias De Los Santos Location: [facility] Date: 01/16/2024 Time: 4:49 PM Patient Driven Protocol Summary: Initial evaluation performed. This Treatment Plan and medications will be reviewed by the Primary Care Team for any contraindications. Respiratory Care Treatment Plan Pulmonary Volume Expansion Therapy: Incentive Spirometry PRN to prevent or treat alveolar consolidation and atelectasis. . Secretion Management Treatment: Flutter TherapyPRN to enhance mobilization of secretions. The patient will be re-evaluated: No re-evaluation needed. Indications for treatment met. The Triage Level is: (Assessment Score = 6 -10) Level 4. Triage Level Definitions: Level 1 Severe Respiratory/Airway Compromise Level 2 Moderate Respiratory/Airway Compromise or high risk for pulmonary complications Level 3 Mild Respiratory/Airway Compromise or moderate risk for pulmonary complications Level 4 Episodic Respiratory/Airway Compromise or low risk for pulmonary complications Level 5 No Respiratory/Airway Compromise Triage 1 Triage 2 Triage 3 Triage 4 Triage 5 greater than 20 16 - 20 11 - 15 6 - 10 0 - 5 Medical Record Assessment Clinical Findings Pulmonary Status: 3 - Pulm Impairment (acute or chronic) w/o exacerbation, or 1 - 2 rib fractures Surgical Status: 1 - General Surgery Chest X-Ray: 1 - CXR Pending Assessment Score: 5 Patient Assessment Clinical Findings Respiratory Pattern: 0 - RR 12 - 20; Patient only gets breathless with strenuous exercise. Breath Sounds: 2 - Diminished bilaterally Cough Effectiveness: 0 - Strong non-productive Sputum Production: 0 - No sputum production Level of Activity: 2 - Temporarily non-ambulatory O2 needed to keep SpO2 greater than or equal to 92%: 1 - Oxygen 1-3 LPM or FiO2 less than 35% Assessment Score: 5 Total Assessment Score: 10 Breath Sounds: Inspiratory and expiratory diminished bilaterally.. Cough and Sputum: An effective cough produced no sputum... CXR: Pending. Vital Signs: Resp: 19 (01/16/24 1547) Pulse: 61 (01/16/24 1547) Temp: 36.1 C (97 F) (01/16/24 1500) BP: 111/80 (01/16/24 1547) SpO2: 94 % (01/16/24 1609) PFT: Minimal Predicted IC: 1.07 L. Inspiratory capacity: 1.0L. Primary Service: Cardiology Med B. Admitting Diagnosis: Aortic stenosis [I35.0] Aortic valve stenosis, severe [I35.0] Pulmonary Diagnosis: COPD, Obesity, CARRI, and Former smoker, Mixed restrictive and obstructive lung disease . Prescriptions/Home Medications/Durable Medical Equipment: QHS BIPAP, PRN Albuterol. Recommended New home medications/durable medical equipment/outpatient pulmonary/sleep referral :None. * Ancillary Progress Note - Diego Funez RCIS - 01/16/2024 3:07 PM EDT [address] [address] Ancillary Progress Note Patient Name: Josias De Los Santos Date: 01/16/2024 Patient will be escorted to Cardiac Recovery Suite, report given to ROBERT Pal. We performed a transcatheter aortic valve replacement. The right femoral artery, right femoral vein, and left femoral artery was used for access with a 5, 7, and 16 Monegasque sheath. A Perclose was used to close both femoral sites and manual pressure applied to venous site. Right femoral site was initially oozing but with some light pressure, stopped the ooze. There is no hematoma and no ooze from the cath site noted. CHG Tegaderm dressing applied to site. Distal pulses were palpated and instructions to patient were given. There were no complications during the case. Please see the MAR for the medications that were given. See Cath Procedure Log for patient vitals during the case. documented in this encounter Plan of Treatment Upcoming Encounters Date Type Department Care Team (Late st Contact Info) Description 01/23/2024 2:40 PM EDT Pharmacy Family Practice [address] [place] [address] [place] [address] College, Pharmacist [address] [place] [address] 01/23/2024 3:00 PM EDT Office Visit Family Practice [address] [facility] [address] [place] [address] Chino Leavitt, [address] [place] [address] 01/24/2024 3:00 PM EDT Office Visit Cardiology, [facility] [address] [place] [address] Adelina Riddle CRNP [address] [place] [address] 01/31/2024 11:30 AM EDT Office Visit Cardiology, [facility] [address] [place] [address] Madeleine Pena MD [address] [place] [address] 03/04/2024 2:30 PM EDT Laboratory Laboratory, [address] [place] [phone] [facility] [address] [place] [address] 03/04/2024 3:00 PM EDT Office Visit Cardiology, [facility] [address] [place] [address] Adelina Riddle CRNP [address] [place] [address] 03/15/2024 1:00 PM EDT Office Visit Family Practice [address] [facility] [address] [place] [address] Chino Leavitt, DO [address] [place] [address] 04/03/2024 7:15 AM EDT Cardiac Studies Cardiac Studies, [facility] [address] [facility] [place], [place] [address] 04/17/2024 12:30 PM EDT Office Visit Dermatology [facility], [place] [address] [facility] [place], [place] [address] Trisha Pulido PA-C [address] [place] [address] 11/18/2024 1:00 PM EDT PulmDiagnostic Pulmonary Function Lab [place] [address] [place] [address] [place], [address] [facility] [place] [address] 11/18/2024 1:40 PM EDT Office Visit Pulmonary Medicine [facility] [place] [address] [place] [phone] Wander Gnozalez MD [address] [place] [address] Scheduled Orders Name Type Priority Associated Diagnoses Orde r Schedule EKG EKG STAT Post-operative state One Time for 1 Occurrences starting 01/16/2024 until 01/16/2024 EKG EKG Routine Post-operative state One Time for 1 Occurrences starting 01/17/2024 until 01/17/2024 EKG EKG Routine Heart palpitations One Time for 1 Occurrences starting 01/17/2024 until 01/17/2024 CONNECTED CONTINUOUS AMBULATORY MONITOR Holter Routine Sinus pause Expected: 01/18/2024, Expires: 01/17/2025 Scheduled Referrals Name Type Priority Associated Diagnoses Orde r Schedule CARDIAC REHAB REFERRAL OP Referral Within 30 days (routine) S/P TAVR (transcatheter aortic valve replacement) Ordered: 01/16/2024 Health Maintenance Due Date Last Done Comments [...] this encounter Medical Devices Implanted Type Area Lead Web Application Developer Device Identifier Shelf Expiration Date Model / Serial / Lot Cath Thermodilution 6fr - [id number] Implanted:Qty: 1 on 11/04/2021 by Kevin Espino DO at CARDIAC LABS [facility] [employer] [id number] 10/13/2023 [id number] / / [id number] Valve Transcath Resilia 29mm - [id number] Implanted:Qty: 1 on 01/16/2024 by Madeleine Pena MD at CARDIAC LABS [facility] [employer] [id number] / / documented as of this encounter Procedures Procedure Name Priority Date/Time Associated Diagnosis Comments BASIC METABOLIC PANEL STAT 01/18/2024 4:27 AM EDT CBC STAT 01/18/2024 4:27 AM EDT MAGNESIUM STAT 01/18/2024 4:27 AM EDT ECHO, COMPLETE (2D), TRANS-THORACIC Routine 01/17/2024 8:37 AM EDT S/P TAVR (transcatheter aortic valve replacement) XR CHEST 1 VIEW Routine 01/17/2024 5:32 AM EDT BASIC METABOLIC PANEL STAT 01/17/2024 4:24 AM EDT MAGNESIUM STAT 01/17/2024 4:24 AM EDT CBC STAT 01/17/2024 4:23 AM EDT XR CHEST 1 VIEW STAT 01/16/2024 8:10 PM EDT BASIC METABOLIC PANEL STAT 01/16/2024 5:13 PM EDT CBC STAT 01/16/2024 5:13 PM EDT MAGNESIUM STAT 01/16/2024 5:13 PM EDT ECHO, COMPLETE (2D), TRANS-THORACIC STAT 01/16/2024 3:57 PM EDT Status post cardiac surgery XR CHEST 1 VIEW STAT 01/16/2024 3:36 PM EDT ACT, POINT OF CARE SATHYA 01/16/2024 1: 57 PM EDT HC ECG TRACING ONLY STAT 01/16/2024 1 1:51 AM EDT S/P TAVR (transcatheter aortic valve replacement) ANEMIA REFLEX CHEMISTRY HOLD STAT 01/16/2024 11:34 AM EDT ANEMIA CBC STAT 01/16/2024 11:34 AM EDT DIFFERENTIAL, AUTOMATED STAT 01/16/20 11:34 AM EDT DIFFERENTIAL, AUTOMATED STAT 01/16/20 11:34 AM EDT BNP (NT-PROBNP) Routine 01/16/2024 11:34 AM EDT BASIC METABOLIC PANEL STAT 01/16/2024 11:34 AM EDT HC COMPATIBILITY ELECTRONIC CROSSMATCH STAT 01/16/2024 11:00 AM EDT CARDIAC CATHETERIZATION REPORT Routine 01/16/2024 CARDIAC CATHETERIZATION REPORT Routine 01/16/2024 documented in this encounter Results * MAGNESIUM (01/18/2024 4:27 AM EDT) Magnesium 2.4 1.5 - 2.6 mg/dL 01/18/2024 5:13 AM EDT [facility] Blood Venous blood specimen / Unknown Venipuncture / Unknown 01/18/2024 4:27 AM EDT 01/18/2024 4:44 AM EDT Sherly Hannah DO LAB BLOOD OR DERABLES [facility] [address] [place], [place] [id number] * (ABNORMAL) CBC (01/18/2024 4:27 AM EDT) WBC 8.63 4.00 - 10.80 K/uL 01/18/2024 5:08 AM EDT [facility] RBC 3.94 4.50 - 5.25 M/uL 01/18/2024 5:08 AM EDT [facility] HGB 12.3(L) 14.0 - 16.8 g/dL 01/18/2024 5:08 AM EDT [facility] HCT 37.3(L) 40.0 - 48.4 % 01/18/2024 5:08 AM EDT LABORATORY [facility] MCV 94.7 82.0 - 99.5 fL 01/18/2024 5:08 AM EDT [facility] MCH 31.2 27.0 - 34.0 pg 01/18/2024 5:08 AM EDT LABORATORY [facility] MCHC 33.0 32.0 - 36.0 g/dL 01/18/2024 5:08 AM EDT LABORATORY [facility] RDW 14.0 11.5 - 15.5 % 01/18/2024 5:08 AM EDT [facility] PLT 114(L) 140 - 400 K/uL 01/18/2024 5:08 AM EDT LABORATORY [facility] MPV 10.2 6.6 - 11.1 fL 01/18/2024 5:08 AM EDT LABORATORY [facility] nRBCs 0 <=0 /100 WBCs 01/18/2024 5:08 AM EDT LABORATORY [facility] Blood Venous blood specimen / Unknown Venipuncture / Unknown 01/18/2024 4:27 AM EDT 01/18/2024 4:44 AM EDT Sherly Hannah DO LAB BLOOD OR DERABLES LABORATORY [facility] [address] [place] [address] * BASIC METABOLIC PANEL (01/18/2024 4:27 AM EDT) BUN 20 6 - 20 mg/dL 01/18/2024 5:13 AM EDT [facility] Creatinine 1.0 0.6 - 1.2 mg/dL 01/18/2024 5:13 AM EDT [facility] Estimated Glomerular Filtration Rate 78 >=60 mL/min 01/18/2024 5:13 AM EDT [facility] Comment:eGFR is calculated b ased on the CKD-EPI 2020 equation Sodium 140 135 - 146 mmol/L 01/18/2024 5:13 AM EDT [facility] Potassium 3.8 3.5 - 5.1 mmol/L 01/18/2024 5:13 AM EDT [facility] Chloride 106 98 - 107 mmol/L 01/18/2024 5:13 AM EDT [facility] CO2 25 22 - 32 mmol/L 01/18/2024 5:13 AM EDT LABORATORY C Anion Gap 9 7 - 15 mmol/L 01/18/2024 5:13 AM EDT LABORATORY [facility] Glucose 98 70 - 120 mg/dL 01/18/2024 5:13 AM EDT LABORATORY [facility] Calcium 9.0 8.4 - 10.2 mg/dL 01/18/2024 5:13 AM EDT LABORATORY [facility] Blood Venous blood specimen / Unknown Venipuncture / Unknown 01/18/2024 4:27 AM EDT 01/18/2024 4:44 AM EDT Sherly Hannah DO LAB BLOOD OR DERABLES LABORATORY [facility] [address] [facility] [place], [place] [id number] * ECHO, COMPLETE (2D), TRANS-THORACIC (01/17/2024 8:37 AM EDT) LEFT VENTRICULAR EJECTION FRACTION 55 % [facility] 01/17/2024 7:57 AM EDT Sherly [facility] DO ECHOCARDIOLO GY [facility] * XR CHEST 1 VIEW (01/17/2024 5:32 AM EDT) Anatomical Region Laterality Modality Chest Computed Radiogr aphy 01/17/2024 9:53 AM EDT Impressions 01/17/2024 9:51 AM EDT IMPRESSION Postop chest as above. Narrative 01/17/2024 9:51 AM EDT EXAM XR CHEST 1 VIEW-01/17/2024 5:32 am HISTORY POD #1 S/P TAVR or Mitraclip COMPARISON XR chest 01/16/2024. TECHNIQUE Two portable AP views of the chest. FINDINGS Lines/Tubes: Similar right IJ approach right ventricular lead. Lungs/Pleura: Similar mild left basilar atelectasis. No discernible pleural effusion or pneumothorax. Heart/Mediastinum: TAVR. Unchanged contours. Bones/Soft Tissues: Degenerative changes of the shoulders. Upper Abdomen: Visualized portions are unremarkable. Procedure Note Aaron Israel MD - 01/17/2024 EXAM XR CHEST 1 VIEW-01/17/2024 5:32 am HISTORY POD #1 S/P TAVR or Mitraclip COMPARISON XR chest 01/16/2024. TECHNIQUE Two portable AP views of the chest. FINDINGS Lines/Tubes: Similar right IJ approach right ventricular lead. Lungs/Pleura: Similar mild left basilar atelectasis. No discerniblepleural effusion or pneumothorax. Heart/Mediastinum: TAVR. Unchanged contours. Bones/Soft Tissues: Degenerative changes of the shoulders. Upper Abdomen: Visualized portions are unremarkable. IMPRESSION IMPRESSION Postop chest as above. [facility] RADIOLOGY (R AD GENERAL) * MAGNESIUM (01/17/2024 4:24 AM EDT) Magnesium 2.4 1.5 - 2.6 mg/dL 01/17/2024 5:17 AM EDT LABORATORY [facility] Blood Venous blood specimen / Unknown Venipuncture / Unknown 01/17/2024 4:24 AM EDT 01/17/2024 4:44 AM EDT [facility] LAB BLOOD OR DERABLES LABORATORY [facility] [address] [place] [address] * (ABNORMAL) BASIC METABOLIC PANEL (01/17/2024 4:24 AM EDT) BUN 22(H) 6 - 20 mg/dL 01/17/2024 5:17 AM EDT LABORATORY C Creatinine 1.2 0.6 - 1.2 mg/dL 01/17/2024 5:17 AM EDT LABORATORY [facility] Estimated Glomerular Filtration Rate 66 >=60 mL/min 01/17/2024 5:17 AM EDT LABORATORY [facility] Comment:eGFR is calculated b ased on the CKD-EPI 2020 equation Sodium 142 135 - 146 mmol/L 01/17/2024 5:17 AM EDT LABORATORY [facility] Potassium 4.1 3.5 - 5.1 mmol/L 01/17/2024 5:17 AM EDT LABORATORY [facility] Chloride 106 98 - 107 mmol/L 01/17/2024 5:17 AM EDT LABORATORY [facility] CO2 31 22 - 32 mmol/L 01/17/2024 5:17 AM EDT LABORATORY [facility] Anion Gap 5(L) 7 - 15 mmol/L 01/17/2024 5:17 AM EDT LABORATORY [facility] Glucose 112 70 - 120 mg/dL 01/17/2024 5:17 AM EDT LABORATORY [facility] Calcium 8.7 8.4 - 10.2 mg/dL 01/17/2024 5:17 AM EDT LABORATORY [facility] Blood Venous blood specimen / Unknown Venipuncture / Unknown 01/17/2024 4:24 AM EDT 01/17/2024 4:44 AM EDT Sherly Hannah DO LAB BLOOD OR DERABLES Performing Organization Address City/State/[facility] Co de Phone Number LABORATORY [facility] [address] [place] [address] * (ABNORMAL) CBC (01/17/2024 4:23 AM EDT) WBC 9.89 4.00 - 10.80 K/uL 01/17/2024 4:57 AM EDT LABORATORY [facility] RBC 4.39 4.50 - 5.25 M/uL 01/17/2024 4:57 AM EDT LABORATORY [facility] HGB 13.5(L) 14.0 - 16.8 g/dL 01/17/2024 4:57 AM EDT LABORATORY [facility] HCT 42.8 40.0 - 48.4 % 01/17/2024 4:57 AM EDT LABORATORY [facility] MCV 97.5 82.0 - 99.5 fL 01/17/2024 4:57 AM EDT LABORATORY [facility] MCH 30.8 27.0 - 34.0 pg 01/17/2024 4:57 AM EDT LABORATORY [facility] MCHC 31.5 32.0 - 36.0 g/dL 01/17/2024 4:57 AM EDT LABORATORY [facility] RDW 14.2 11.5 - 15.5 % 01/17/2024 4:57 AM EDT LABORATORY [facility] PLT 145 140 - 400 K/uL 01/17/2024 4:57 AM EDT LABORATORY [facility] MPV 10.1 6.6 - 11.1 fL 01/17/2024 4:57 AM EDT LABORATORY [facility] nRBCs 0 <=0 /100 WBCs 01/17/2024 4:57 AM EDT LABORATORY [facility] Blood Venous blood specimen / Unknown Venipuncture / Unknown 01/17/2024 4:23 AM EDT 01/17/2024 4:44 AM EDT Sherly Bianchi Parnevaehao DO LAB BLOOD OR DERABLES LABORATORY [facility] [address] [place] [address] * XR CHEST 1 VIEW (01/16/2024 8:10 PM EDT) Anatomical Region Laterality Modality Chest Computed Radiogr aphy 01/17/2024 7:31 AM EDT Impressions 01/17/2024 7:29 AM EDT IMPRESSION As above. Narrative 01/17/2024 7:29 AM EDT EXAM XR CHEST 1 VIEW-01/16/2024 8:10 pm HISTORY temp wire, look for pneumo COMPARISON XR chest 01/16/2024. TECHNIQUE Single portable frontal view of the chest. FINDINGS Lines/Tubes: Placement of a right IJ approach right ventricular lead. Lungs/Pleura: No pneumothorax. Hypoventilatory exam with similar left basilar atelectasis. No discernible pleural effusion. Heart/Mediastinum: Unchanged contours. Bones/Soft Tissues: Degenerative changes of the shoulders and spine. Upper Abdomen: Visualized portions are unremarkable. Procedure Note Aaron Israel MD - 01/17/2024 EXAM XR CHEST 1 VIEW-01/16/2024 8:10 pm HISTORY temp wire, look for pneumo COMPARISON XR chest 01/16/2024. TECHNIQUE Single portable frontal view of the chest. FINDINGS Lines/Tubes: Placement of a right IJ approach right ventricular lead. Lungs/Pleura: No pneumothorax. Hypoventilatory exam with similar leftbasilar atelectasis. No discernible pleural effusion. Heart/Mediastinum: Unchanged contours. Bones/Soft Tissues: Degenerative changes of the shoulders and spine. Upper Abdomen: Visualized portions are unremarkable. IMPRESSION IMPRESSION As above. Janine Espino DO RADIOLOGY (RAD GENER AL) * MAGNESIUM (01/16/2024 5:13 PM EDT) Magnesium 2.2 1.5 - 2.6 mg/dL 01/16/2024 5:48 PM EDT LABORATORY [facility] Blood Venous blood specimen / Unknown Venipuncture / Unknown 01/16/2024 5:13 PM EDT 01/16/2024 5:17 PM EDT Sherly Hannah DO LAB BLOOD OR DERABLES LABORATORY [facility] [address] [place] [address] * CBC (01/16/2024 5:13 PM EDT) WBC 10.45 4.00 - 10.80 K/uL 01/16/2024 5:28 PM EDT LABORATORY [facility] RBC 4.46 4.50 - 5.25 M/uL 01/16/2024 5:28 PM EDT LABORATORY [facility] HGB 14.1 14.0 - 16.8 g/dL 01/16/2024 5:28 PM EDT LABORATORY [facility] HCT 43.0 40.0 - 48.4 % 01/16/2024 5:28 PM EDT LABORATORY [facility] MCV 96.4 82.0 - 99.5 fL 01/16/2024 5:28 PM EDT LABORATORY [facility] MCH 31.6 27.0 - 34.0 pg 01/16/2024 5:28 PM EDT LABORATORY [facility] MCHC 32.8 32.0 - 36.0 g/dL 01/16/2024 5:28 PM EDT LABORATORY [facility] RDW 14.5 11.5 - 15.5 % 01/16/2024 5:28 PM EDT LABORATORY [facility] PLT 151 140 - 400 K/uL 01/16/2024 5:28 PM EDT LABORATORY [facility] MPV 9.7 6.6 - 11.1 fL 01/16/2024 5:28 PM EDT LABORATORY [facility] nRBCs 0 <=0 /100 WBCs 01/16/2024 5:28 PM EDT LABORATORY [facility] Blood Venous blood specimen / Unknown Venipuncture / Unknown 01/16/2024 5:13 PM EDT 01/16/2024 5:17 PM EDT Sherly Tash Hannah DO LAB BLOOD OR DERABLES LABORATORY [facility] [address] [place] [address] * (ABNORMAL) BASIC METABOLIC PANEL (01/16/2024 5:13 PM EDT) BUN 23(H) 6 - 20 mg/dL 01/16/2024 5:48 PM EDT LABORATORY [facility] Creatinine 1.2 0.6 - 1.2 mg/dL 01/16/2024 5:48 PM EDT LABORATORY [facility] Estimated Glomerular Filtration Rate 65 >=60 mL/min 01/16/2024 5:48 PM EDT LABORATORY [facility] Comment:eGFR is calculated b ased on the CKD-EPI 2020 equation Sodium 140 135 - 146 mmol/L 01/16/2024 5:48 PM EDT LABORATORY [facility] Potassium 4.1 3.5 - 5.1 mmol/L 01/16/2024 5:48 PM EDT LABORATORY [facility] Chloride 104 98 - 107 mmol/L 01/16/2024 5:48 PM EDT LABORATORY [facility] CO2 29 22 - 32 mmol/L 01/16/2024 5:48 PM EDT LABORATORY [facility] Anion Gap 7 7 - 15 mmol/L 01/16/2024 5:48 PM EDT LABORATORY [facility] Glucose 96 70 - 120 mg/dL 01/16/2024 5:48 PM EDT LABORATORY [facility] Calcium 8.8 8.4 - 10.2 mg/dL 01/16/2024 5:48 PM EDT LABORATORY [facility] Blood Venous blood specimen / Unknown Venipuncture / Unknown 01/16/2024 5:13 PM EDT 01/16/2024 5:17 PM EDT Sherly Hannah DO LAB BLOOD OR DERABLES LABORATORY [facility] [address] [place] [address] * ECHO, COMPLETE (2D), TRANS-THORACIC (01/16/2024 3:57 PM EDT) LEFT VENTRICULAR EJECTION FRACTION 50 % [facility] 01/16/2024 1:00 PM EDT Madeleine Pena MD ECHOCARDIOLOGY [facility] * XR CHEST 1 VIEW (01/16/2024 3:36 PM EDT) Anatomical Region Laterality Modality Chest Computed Radiogr aphy 01/16/2024 5:12 PM EDT Impressions 01/16/2024 5:16 PM EDT IMPRESSION Hypoventilatory changes with no acute cardiopulmonary disease seen. I have personally reviewed this examination and agree with the resident/fellow physician's interpretation. Narrative 01/16/2024 5:16 PM EDT EXAM XR CHEST 1 VIEW - 01/16/2024 3:36 pm HISTORY baseline initial xray after open heart surgery TECHNIQUE AP supine chest radiograph is submitted. COMPARISON Chest x-ray 11/24/2022. FINDINGS FOREIGN BODIES, SUPPORT TUBES, LINES, DEVICES: TAVR. LUNGS, PLEURA: Low lung volumes with bronchovascular crowding. No focal consolidation. No pneumothorax or sizable effusion. HEART, MEDIASTINUM: Stable cardiomediastinal silhouette. OTHER: Advanced degenerative changes of the glenohumeral joints. Procedure Note Kash Abreu MD - 01/16/2024 EXAM XR CHEST 1 VIEW - 01/16/2024 3:36 pm HISTORY baseline initial xray after open heart surgery TECHNIQUE AP supine chest radiograph is submitted. COMPARISON Chest x-ray 11/24/2022. FINDINGS FOREIGN BODIES, SUPPORT TUBES, LINES, DEVICES: TAVR. LUNGS, PLEURA: Low lung volumes with bronchovascular crowding. No focalconsolidation. No pneumothorax or sizable effusion. HEART, MEDIASTINUM: Stable cardiomediastinal silhouette. OTHER: Advanced degenerative changes of the glenohumeral joints. IMPRESSION IMPRESSION Hypoventilatory changes with no acute cardiopulmonary disease seen. I have personally reviewed this examination and agree with the resident/fellow physician's interpretation. [facility] (R AD GENERAL) * ACT, POINT OF CARE (01/16/2024 1:57 PM EDT) ACT 363 50 - 1,000 secs 01/16/2024 3:26 PM EDT [facility] [employer] Blood 01/16/2024 1:57 PM EDT 01/16/2024 3:26 PM EDT Narrative [facility] First Aid Shot Therapy [facility] - 01/16/2024 3:26 PM EDT NORMAL (NON-HEPARINIZED) 74-137 SECONDS HEPARINIZED 200+ SECONDS CRITICAL GREATER THAN 1000 SECONDS Hernandez Lau DO LAB POINT OF CARE T EST DOCKED DEVICE UNSOLICITED RESULTS [facility] [address] [place] [address] * EKG (01/16/2024 11:51 AM EDT) 01/16/2024 11:5 1 AM EDT Narrative Procedure Note Madeleine Pena MD - 01/16/2024 11:51 AM EDT REASON FOR STUDY: pretavr CONCLUSIONS: Atrial fibrillation Nonspecific T wave abnormality Abnormal ECG When compared with ECG of 27-Nov-2023 10:06, No significant change was found Ventricular Rate: 64 QRS Duration: 88 QT/QTc: 426/439 ms P-R-T [place]: 0 : 32 : 142 degrees Jolly ALEXANDER EKG Hang w/ CARDIOLOGY * ANEMIA REFLEX CHEMISTRY HOLD (01/16/2024 11:34 AM EDT) Blood Venous blood specimen / Unknown Venipuncture / Unknown 01/16/2024 11:34 AM EDT 01/16/2024 11:48 AM EDT Jolly Spencer Inna ALEXANDER LAB BLOOD ORDERABLES LABORATORY [facility] [address] [place] [address] * (ABNORMAL) DIFFERENTIAL, AUTOMATED (01/16/2024 11:34 AM EDT) WBC 8.50 4.00 - 10.80 K/uL 01/16/2024 11:58 AM EDT LABORATORY [facility] Neutrophils % 72.8 40.0 - 75.0 % 01/16/2024 11:58 AM EDT LABORATORY [facility] Lymphocytes % 10.4(L) 18.0 - 42.0 % 01/16/2024 11:58 AM EDT LABORATORY [facility] Monocytes % 13.4(H) 1.0 - 11.0 % 01/16/2024 11:58 AM EDT LABORATORY [facility] Eosinophils % 2.0 0.0 - 6.0 % 01/16/2024 11:58 AM EDT LABORATORY [facility] Basophils % 0.7 0.0 - 2.0 % 01/16/2024 11:58 AM EDT LABORATORY [facility] Immature Granulocytes % 0.7 0.0 - 2.0 % 01/16/2024 11:58 AM EDT LABORATORY [facility] Absolute Neutrophils 6.19 1.80 - 7.70 K/uL 01/16/2024 11:58 AM EDT LABORATORY [facility] Absolute Lymphocytes 0.88(L) 1.00 - 4.80 K/ul 01/16/2024 11:58 AM EDT LABORATORY [facility] Absolute Monocytes 1.14(H) 0.00 - 1.10 K/uL 01/16/2024 11:58 AM EDT LABORATORY [facility] Absolute Eosinophils 0.17 0.00 - 0.70 K/uL 01/16/2024 11:58 AM EDT LABORATORY [facility] Absolute Basophils 0.06 0.00 - 0.20 K/uL 01/16/2024 11:58 AM EDT LABORATORY [facility] Absolute Immature Granulocytes 0.06 0.00 - 0.20 K/uL 01/16/2024 11:58 AM EDT LAB[facility]ATORY [facility] Blood Venous blood specimen / Unknown Venipuncture / Unknown 01/16/2024 11:34 AM EDT 01/16/2024 11:48 AM EDT Jolly ALEXANDER LAB BLOOD ORDERABLES LABORATORY [facility] [address] [place] [address] * ANEMIA CBC (01/16/2024 11:34 AM EDT) WBC 8.50 4.00 - 10.80 K/uL 01/16/2024 11:58 AM EDT LABORATORY [facility] RBC 4.82 4.50 - 5.25 M/uL 01/16/2024 11:58 AM EDT LABORATORY [facility] HGB 14.7 14.0 - 16.8 g/dL 01/16/2024 11:58 AM EDT LABORATORY [facility] Comment: Anemia reflex testing triggers on a HGB < 12.0 for Females and HGB < 13.0 for Males in accordance with the WHO Anemia Guidelines Anemia reflex testing triggers on a HGB < 12.0 for Females and HGB < 13.0 for Males in accordance with the WHO Anemia Guidelines HCT 45.8 40.0 - 48.4 % 01/16/2024 11:58 AM EDT LABORATORY [facility] MCV 95.0 82.0 - 99.5 fL 01/16/2024 11:58 AM EDT LABORATORY [facility] MCH 30.5 27.0 - 34.0 pg 01/16/2024 11:58 AM EDT LABORATORY [facility] MCHC 32.1 32.0 - 36.0 g/dL 01/16/2024 11:58 AM EDT LABORATORY [facility] RDW 14.4 11.5 - 15.5 % 01/16/2024 11:58 AM EDT LABORATORY [facility] PLT 196 140 - 400 K/uL 01/16/2024 11:58 AM EDT LAB[facility]ATORY [facility] MPV 10.2 6.6 - 11.1 fL 01/16/2024 11:58 AM EDT LABORATORY [facility] nRBCs 0 <=0 /100 WBCs 01/16/2024 11:58 AM EDT LAB[facility]ATORY [facility] Blood Venous blood specimen / Unknown Venipuncture / Unknown 01/16/2024 11:34 AM EDT 01/16/2024 11:48 AM EDT Jolly ALEXANDER LAB BLOOD ORDERABLES LABORATORY C [address] [place] [address] * (ABNORMAL) BASIC METABOLIC PANEL (01/16/2024 11:34 AM EDT) BUN 26(H) 6 - 20 mg/dL 01/16/2024 12:17 PM EDT LABORATORY [facility] Creatinine 1.2 0.6 - 1.2 mg/dL 01/16/2024 12:17 PM EDT LABORATORY [facility] Estimated Glomerular Filtration Rate 64 >=60 mL/min 01/16/2024 12:17 PM EDT LABORATORY [facility] Comment:eGFR is calculated b ased on the CKD-EPI 2020 equation Sodium 141 135 - 146 mmol/L 01/16/2024 12:17 PM EDT LABORATORY [facility] Potassium 3.5 3.5 - 5.1 mmol/L 01/16/2024 12:17 PM EDT LABORATORY [facility] Chloride 103 98 - 107 mmol/L 01/16/2024 12:17 PM EDT LAB[facility]ATORY [facility] CO2 26 22 - 32 mmol/L 01/16/2024 12:17 PM EDT LAB[facility]ATORY [facility] Anion Gap 12 7 - 15 mmol/L 01/16/2024 12:17 PM EDT LAB[facility]ATORY [facility] Glucose 87 70 - 120 mg/dL 01/16/2024 12:17 PM EDT LABORATORY [facility] Calcium 9.5 8.4 - 10.2 mg/dL 01/16/2024 12:17 PM EDT LABORATORY [facility] Blood Venous blood specimen / Unknown Venipuncture / Unknown 01/16/2024 11:34 AM EDT 01/16/2024 11:48 AM EDT Jolly ALEXANDER LAB BLOOD ORDERABLES LABORATORY [facility] [address] [place] [address] * (ABNORMAL) BNP, NT-PRO (01/16/2024 11:34 AM EDT) BNP, NT-Pro 1,238(H) <300 pg/mL 01/16/2024 12:17 PM EDT LABORATORY [facility] Blood Venous blood specimen / Unknown Venipuncture / Unknown 01/16/2024 11:34 AM EDT 01/16/2024 11:48 AM EDT Narrative LABORATORY [facility] - 01/16/2024 12:17 PM EDT Exclude Heart Failure: <300 pg/mL Diagnose Heart Failure: Age <50 yr: >450 pg/mL 50-75 yr: >900 pg/mL >75 yr: >1800 pg/mL GFR is 30-59 mL/min: >1200 pg/mL or Age-adjusted values GFR <30 mL/min: do not use, not reliable Prognostic threshold: 1000 pg/mL Madeleine Pena MD LAB BLOOD ORDERABLES LABORATORY [facility] [address] [place] [address] * PREPARE PACKED RED BLOOD CELLS (01/16/2024 11:00 AM EDT) Unit Product Code [id number] LABORATORY [facility] BLOOD BANK Unit Number [id number] LABO RATORY [facility] BLOOD BANK Unit ABO A LABORATORY [facility] BLOOD BANK Unit Rh POS LABORATORY [facility] BLOOD BANK Unit Crossmatch Compatible LABORATORY [facility] BLOOD BANK Unit Status RE LABORATO RY [facility] BLOOD BANK Unit Blood Type APOS LABORATORY [facility] BLOOD BANK Unit Expiration [id number] LABORATORY [facility] BLOOD BANK Unit Barcode 6200 LAB[facility]AT [facility] Unit Product Code [id number] LABORATORY [facility] BLOOD BANK Unit Number [id number] LABO RATORY [facility] BLOOD BANK Unit ABO A LABORATORY [facility] BLOOD BANK Unit Rh POS LABORATORY [facility] BLOOD BANK Unit Crossmatch Compatible LABORATORY [facility] BLOOD BANK Unit Status RE LABORATO RY [facility] BLOOD BANK Unit Blood Type APOS LABORATORY [facility] BLOOD BANK Unit Expiration [id number] LABORATORY [facility] BLOOD BANK Unit [address]arcode [address] [facility] BLOOD BANK 01/16/2024 11:0 0 AM EDT Madeleine Pena MD BLD BANK PRODUCT ORD ERABLES LABORATORY [facility] BLOOD BANK [address] [place] [address] * CARDIAC CATHETERIZATION REPORT (01/16/2024) DATE OF PROCEDURE 01/16/2024 [facility] DIAGNOST[facility] Madeleine De Santiago MD [facility] CONCLUSIONS * Temporary pacemaker placement via RIJ. Back up mode 50 bpm. [facility] PROCEDURES Temporary Pacer Insertion 0:23-0:37 hours:minutes Sedation [facility] TOTAL CONTRAST VOLUME 0 ml [facility] TOTAL RADIATION 0.03 Gy [facility] COMPLICATIONS No complication None [facility] 01/16/2024 01/18/2024 4:2 1 PM EDT Madeleine Pena MD CARD CATH Performing Organization Address City/[facility] Co de Phone Number [facility] * CARDIAC CATHETERIZATION REPORT (01/16/2024) DATE OF PROCEDURE 01/16/2024 [facility] Madeleine De Santiago MD [facility] PROCEDURES TAVR - Replace Aortic Valve Perq No conscious sedation administered by cath/EP lab staff during this procedure. [facility] TOTAL CONTRAST VOLUME 40 ml [facility] TOTAL RADIATION 0.45 Gy [facility] COMPLICATIONS No complication None [facility] 01/16/2024 01/16/2024 3:4 1 PM EDT Madeleine Pena MD CARD CATH [facility] documented in this encounter Visit Diagnoses Diagnosis S/P TAVR (transcatheter aortic valve replacement)- Primary Heart valve replaced by other means Aortic valve stenosis, severe Aortic valve disorders Status post cardiac surgery S/P TAVR (transcatheter aortic valve replacement) Heart valve replaced by other means Post-operative state Other postprocedural status Heart palpitations Palpitations Nonrheumatic aortic (valve) stenosis [I35.0] Encounter for examination for normal comparison and control in clinical research program [Z00.6] HFrEF (heart failure with reduced ejection fraction) (HCC) Longstanding persistent atrial fibrillation (HCC) Sinus pause Other heart block documented in this encounter Administered Medications Inactive Administered Medications - up to 3 most recent administrations Medication Order MAR Action Action Date Dose Rate Site Acetaminophen (Tylenol) tab 975 mg 975 mg, Oral, Q6H, First dose on Mon01/16/24 at 1800, Last dose on Mon01/21/24 at 1200, For 5 days, Maximum 4 g acetaminophen/day. Avoid in patients with severe hepatic impairment or severe active liver disease. Use for 5 days., Post-op Given 01/18/2024 6:03 AM EDT 975 mg Given 01/17/2024 11:59 PM EDT 975 mg Given 01/17/2024 6:23 PM EDT 975 mg aspirin chew tab 81 mg 81 mg, Oral, Daily(AM), First dose on Mon01/17/24 at 1145, Until Discontinued Given 01/18/2024 8:22 AM EDT 81 mg Given 01/17/2024 11:59 AM EDT 81 mg atorvaSTATin (Lipitor) tab 40 mg 40 mg, Oral, Daily(AM), First dose on Mon01/17/24 at 0900, Until Discontinued Given 01/18/2024 8:23 AM EDT 40 mg Given 01/17/2024 8:51 AM EDT 40 mg atropine sulfate inj 1 mg 1 mg, IV Push, PRN Arrhythmia, Heart block, Starting on Mon01/16/24 at 1722, Until Mon01/18/24 at 1923 DULoxetine (Cymbalta) DR cap 60 mg 60 mg, Oral, DAILY(0), First dose on Mon01/16/24 at 1900, Until Discontinued Given 01/17/2024 6:23 PM EDT 60 mg Given 01/16/2024 9:47 PM EDT 60 mg fentaNYL (PF) inj 50 mcg 50 mcg, IV Push, PRN Pain, Severe, Starting on Mon01/16/24 at 1855, Until Mon01/16/24 at 1930, For 2 hours, To be administered in Cardiac Color Control Operator intra-procedure only When given IV Push its recommended that the dose be given over 3 to 5 minutes., Intra-Op Given 01/16/2024 6:50 PM EDT 50 m cg Ferrous Sulfate (Feosol) tab 325 mg 325 mg, Oral, Daily(AM), First dose on Mon01/17/24 at 0900, Until Discontinued Given 01/18/2024 8:23 AM EDT 325 mg Given 01/17/2024 8:51 AM EDT 325 mg hEParin inj 5,000 Units 5,000 Units, Subcutaneous, Q8H, First dose on Mon01/17/24 at 0600, Until Discontinued, Post-op Given 01/18/2024 6:03 AM EDT 5,000 Units Abdomen Right Lower Given 01/17/2024 9:41 PM EDT 5,000 Units A bdomen Right Lower Given 01/17/2024 2:13 PM EDT 5,000 Units A bdomen Left Lower Iopamidol (Isovue 370) inj 40 mL 40 mL, Intracoronary, ONCE, On Mon01/16/24 at 1545, For 1 dose, Intra-Op Given 01/16/2024 3:11 PM EDT 40 mL magnesium sulfate 1 g in d5w 100mL LOCKED DOSE 1 g, IV Piggyback, PRN Other, Magnesium replacement, Starting on Mon01/16/24 at 1454, Until Mon01/18/24 at 1923, For 4 doses, 1. Serum creatinine must be less than 1.5 2. Current urine output must be greater than 30 mL/hr. Magnesium level 1.5 - 2.2: Give 1 gm over 1 hour x 1 dose Magnesium level less than 1.5: Give 1 gm over 1 hour x 2 doses Repeat serum magnesium level 1 hour after completion of 2nd dose, Post-op midazolam (Versed) 2 MG/2ML inj 0.5 mg 0.5 mg, IV Push, PRN Anxiety, Starting on Mon01/16/24 at 1855, Until Mon01/16/24 at 1930, For 2 hours, To be administered in Cardiac [employer] Operator intra-procedure only, Intra-Op Given 01/16/2024 6:50 PM EDT 0.5 mg potassium chloride ER tab 20 mEq 20 mEq, Oral, ONCE, On Mon01/18/24 at 0600, For 1 dose, This med should NOT be Crushed or Chewed Given 01/18/2024 6:03 AM EDT 20 mEq sodium chloride 0.9 % flush peripheral pepe 3 mL 3 mL, IV Push, QSHIFT, First dose on Mon01/16/24 at 1600, Until Discontinued, Do not flush if lock, PICC, or central line not in place; IV infusing or unable to flush., Post-op Given 01/18/2024 8:00 AM EDT 3 mL Given 01/18/2024 12:00 AM EDT 3 mL Given 01/17/2024 4:00 PM EDT 3 mL Spironolactone (Aldactone) tab 25 mg 25 mg, Oral, Daily(AM), First dose on Mon01/17/24 at 0900, Until Discontinued Given 01/18/2024 8:23 AM EDT 25 mg Given 01/17/2024 8:51 AM EDT 25 mg tamsulosin (Flomax) cap 0.4 mg 0.4 mg, Oral, Daily(AM), First dose on Mon01/17/24 at 0900, Until Discontinued, Administer 30 min after meal. This med should NOT be Crushed or Chewed or opened! ORAL administration only!! Given 01/18/2024 8:23 AM EDT 0.4 mg Given 01/17/2024 8:51 AM EDT 0.4 mg traMADol (Ultram) tab 50 mg 50 mg, Oral, Q12H PRN Pain, Severe, Starting on Mon01/16/24 at 1454, Until Mon01/18/24 at 1923, Post-op documented in this encounter Active and Recently Administered Medications Times are shown in EDT. Scheduled Medication Order 01/16/2024 01/17/2024 01/18/2024 Acetaminophen (Tylenol) tab 975 mg 975 mg, Oral, Q6H, First dose on Mon01/16/24 at 1800, Last dose on Mon01/21/24 at 1200, For 5 days, Maximum 4 g acetaminophen/day. Avoid in patients with severe hepatic impairment or severe active liver disease. Use for 5 days., Post-op 1800 (Due)2147 (Given - Provider: Roberto Alcantara RN) 0540 (Given - Provider: Roberto Alcantara RN)1158 (Given - Provider: Yoshi Del Toro RN)182 (Given - Provider: Yoshi Del Toro RN)2359 (Given - Provider: Roberto Alcantara RN) 0603 (Given - Provider: Roberto Alcantara RN)1200 (Due) aspirin chew tab 81 mg 81 mg, Oral, Daily(AM), First dose on Mon01/17/24 at 1145, Until Discontinued 115 (Given - Provider: Yoshi Del Toro RN) 08 (Given - Provider: Jamison Flynn RN) atorvaSTATin (Lipitor) tab 40 mg 40 mg, Oral, Daily(AM), First dose on Mon01/17/24 at 0900, Until Discontinued 08 (Given - Provider: Yoshi Del Toro RN) 08 (Given - Provider: Jamison Flynn RN) ceFAZolin in dextrose (Ancef) ivpb 2 g (COMPLETED) 2 g, IV Piggyback, ONCE, 1 dose, On Mon01/16/24 at 1130, Pre-Op 1310 (Given - Provider: Felix Reyes CRNA) DULoxetine (Cymbalta) DR cap 60 mg 60 mg, Oral, DAILY(1900), First dose on Mon01/16/24 at 1900, Until Discontinued 2146 (Given - Provider: Roberto Alcantara RN) 182 (Given - Provider: Yoshi Del Toro RN) Ferrous Sulfate (Feosol) tab 325 mg 325 mg, Oral, Daily(AM), First dose on Mon01/17/24 at 0900, Until Discontinued 0851 (Given - Provider: Yoshi Del Toro RN) 08 (Given - Provider: Jamison Flynn RN) hEParin inj 5,000 Units 5,000 Units, Subcutaneous, Q8H, First dose on Mon01/17/24 at 0600, Until Discontinued, Post-op 0539 (Given - Provider: Roberto Alcantara RN)1413 (Given - Provider: Yoshi Del Toro RN)2141 (Given - Provider: Roberto Alcantara RN) 0603 (Given - Provider: Roberto Alcantara RN)1400 (Due) Iopamidol (Isovue 370) inj 40 mL (COMPLETED) 40 mL, Intracoronary, ONCE, On Mon01/16/24 at 1545, For 1 dose, Intra-Op 1511 (Given - Provider: Diego Funez, ENTERTAINMENT PRODUCTION PROFESSIONAL) potassium chloride ER tab 20 mEq (COMPLETED) 20 mEq, Oral, ONCE, On Kerry 01/18/24 at 0600, For 1 dose, This med should NOT be Crushed or Chewed 0603 (Given - Provider: Roberto Alcantara RN) sodium chloride 0.9 % flush peripheral pepe 3 mL 3 mL, IV Push, QSHIFT, First dose on Mon01/16/24 at 1600, Until Discontinued, Do not flush if lock, PICC, or central line not in place; IV infusing or unable to flush., Post-op 1600 (Due) 0000 (Given - Provider: Roberto Alcantara RN)0800 (Given - Provider: Yoshi Del Toro RN)1600 (Given - Provider: Yoshi Del Toro RN) 0000 (Given - Provider: Roberto Alcantara RN)0800 (Given - Provider: Jamison Flynn, ROBERT) Spironolactone (Aldactone) tab 25 mg 25 mg, Oral, Daily(AM), First dose on Mon01/17/24 at 0900, Until Discontinued 0851 (Given - Provider: Yoshi Del Toro RN) 0823 (Given - Provider: Jamison Flynn, ROBERT) tamsulosin (Flomax) cap 0.4 mg 0.4 mg, Oral, Daily(AM), First dose on Mon01/17/24 at 0900, Until Discontinued, Administer 30 min after meal. This med should NOT be Crushed or Chewed or opened! ORAL administration only!! 0851 (Given - Provider: Yoshi Del Toro RN) 0823 (Given - Provider: Jamison Flynn, ROBERT) Continuous Medication Order 01/16/2024 01/17/2024 01/18/2024 NSS infusion (CANCELED) Intravenous, at 25 mL/hr, CONTINUOUS, Starting on Mon01/16/24 at 1130, Until Mon01/16/24 at 1601, Pre-Op 1239 (New Bag - Provider: Felix Reyes CRNA)1253 (Continue from Pre-Op - Provider: Felix Reyes CRNA)1330 (Anes Intra-Op Fluid - Provider: Felix Reyes CRNA)1430 (Anes Intra-Op Fluid - Provider: Felix Reyes CRNA)1504 (Anes Intra-Op Fluid - Provider: Felix Reyes CRNA)1601 (Due: Stopped - Provider: Sherly Hannah DO) PRN Medication Order 01/16/2024 01/17/2024 01/18/2024 atropine sulfate inj 1 mg 1 mg, IV Push, PRN Arrhythmia, Heart block, Starting on Mon01/16/24 at 1722, Until Kerry 01/18/24 at 1923 fentaNYL (PF) inj 50 mcg (CANCELED) 50 mcg, IV Push, PRN Pain, Severe, Starting on Mon01/16/24 at 1855, Until Mon01/16/24 at 1930, For 2 hours, To be administered in Cardiac Color Control Operator intra-procedure only When given IV Push its recommended that the dose be given over 3 to 5 minutes., Intra-Op 1850 (Given - Provider: Gela Jordan RN) magnesium sulfate 1 g in d5w 100mL LOCKED DOSE 1 g, IV Piggyback, PRN Other, Magnesium replacement, Starting on Mon01/16/24 at 1454, Until Kerry 01/18/24 at 1923, For 4 doses, 1. Serum creatinine must be less than 1.5 2. Current urine output must be greater than 30 mL/hr. Magnesium level 1.5 - 2.2: Give 1 gm over 1 hour x 1 dose Magnesium level less than 1.5: Give 1 gm over 1 hour x 2 doses Repeat serum magnesium level 1 hour after completion of 2nd dose, Post-op midazolam (Versed) 2 MG/2ML inj 0.5 mg (CANCELED) 0.5 mg, IV Push, PRN Anxiety, Starting on Mon01/16/24 at 1855, Until Mon01/16/24 at 1930, For 2 hours, To be administered in Cardiac Color Control Operator intra-procedure only, Intra-Op 1850 (Given - Provider: Gela Jordan RN) traMADol (Ultram) tab 50 mg 50 mg, Oral, Q12H PRN Pain, Severe, Starting on Mon01/16/24 at 1454, Until Kerry 01/18/24 at 1923, Post-op documented in this encounter Advance Directives Latest Code Status on File Code Status Date Activated Date Inactivated Comments Full Code 01/16/2024 2:56 PM 01/18/2024 7:23 PM This order reflects the patients wishes and were consensually agreed upon. Question Answer Comments Discussion of Advance Directives occurred with: Patient Care Teams Tray Worker Relationship Specialty Start Date End Date Chino Leavitt DO [address] [facility] [place] [address] PCP - General Internal Medicine 01/23/23 documented as of this encounter
--- OUTSIDE RECORDS SUMMARY | 2024-03-18 19:24 | External Medical Summary ---
Author Name Unknown Address Unknown Organization K01:[facility] [place] [facility] [address] [facility] [place] [address] Laboratory Report Ordering Provider Test Date Status ROSA SALVADOR 01/12/2024 13:55:12 Final Observation Date Value Abnormality Reference (Units ) Status ABO 01/12/2024 13:55:12 A Final RH 01/12/2024 13:55:12 Positive Final Performing Location [facility] [place] [facility] [address] [facility] [place] [address]
--- OUTSIDE RECORDS SUMMARY | 2024-03-18 19:24 | External Medical Summary ---
Author Name Unknown Address Unknown Organization K01:[facility]ATORY [facility] [place] - [address] [facility] [address] Laboratory Report Ordering Provider Test Date Status NICOLÁS REESENUZHAT MARY JO 01/16/2024 11:34:11 Final Observation Date Value Abnormality Reference (Units ) Status SYNC LEUKOCYTES IN BLOOD BY AUTOMATED COUNT 01/16/2024 11:34:11 8.50 4.00-10.80 (K/uL) Final Segs 01/16/2024 11:34:11 72.8 40.0-75.0 (%) Final Lymphs % 01/16/2024 11:34:11 10.4 Below low normal 18.0-42.0 (%) Final Monos 01/16/2024 11:34:11 13.4 Above high normal 1.0-11.0 (%) Final Eosinophils 01/16/2024 11:34:11 2.0 0.0-6.0 (%) Final Basos 01/16/2024 11:34:11 0.7 0.0-2.0 (%) Final Immature Granulocyte, Percent 01/16/2024 11:34:11 0.7 0.0-2.0 (%) Final Absolute Segs 01/16/2024 11:34:11 6.19 1.80-7.70 (K/uL) Final Lymphs, absolute 01/16/2024 11:34:11 0.88 Below low normal 1.00-4.80 (K/ul) Final Monos, Abs 01/16/2024 11:34:11 1.14 Above high normal 0.00-1.10 (K/uL) Final Eos, Abs 01/16/2024 11:34:11 0.17 0.00-0.70 (K/uL) Final Basos, Abs 01/16/2024 11:34:11 0.06 0.00-0.20 (K/uL) Final Immature Granulocytes, Number 01/16/2024 11:34:11 0.06 0.00-0.20 (K/uL) Final Performing Location LAB[facility]ATORY [facility] [place] - [facility] [address] [place] [address]
--- OUTSIDE RECORDS SUMMARY | 2024-03-18 19:24 | External Medical Summary | Summary of Care ---
Author Name Unknown Organization [facility] Address [address] [place] [address] Phone [phone] Care Team Providers Care Scarf And Anneal Operator Name Role Phone Chino Leavitt DO Primary Care Provider [phone] Encounter Details Date Type Department Care Team (Late st Contact Info) Description 01/16/2024 CardioDiagnostic Study Cardiology [facility], [place] [address] [place] [address] Hernandez Lau, [address] [place] [address] EKG Report Allergies No known active allergiesdocumented as of this encounter (statuses as of 01/17/2024) Medications Medication Sig Dispensed Refills Start Date End Date Status Pfvtegrnema-Migrotxse-Um t C-Mn (GLUCOSAMINE CHONDR 500 COMPLEX) Capsule Take 1 Capsule by mouth every morning. 0 Suspended [place] 3 1000 MG CAPS Take [address] [...] [facility]),Longstanding persistent atrial fibrillation ([facility]) Take 1.5 Tablets by mouth in the morning. 135 Tablet 3 09/25/19 24 Suspended Additional Information Patient taking differently: 50 mgOral Daily(AM), Reported on 12/13/2023 Potassium Chloride [facility] 10 MEQ Oral [...] Tablet before bedtime. 180 Tablet 3 12/13/19 Suspended Additional Information Tamsulosin HCl 0.4 MG Oral Capsule (Flomax) Take 1 Capsule by mouth in the morning. 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 Anemia 05/26/2022 04/21/2023 documented as of this encounter (statuses as of 01/17/2024) Immunizations Name Administration Dates Next Due COVID-19 mRNA, LNP-s, No Pre serve, 2-Dose Series ([employer]) 03/30/2022,06/23/2021,10/02/2020,09/11 COVID-19, MRNA-LNP, 23-24, P F, 30 MCG/0.3 mL, 12 YRS AND ABOVE, IM ([facility]) 08/14/2023 Covid-19, Mrna, Lnp-s, Pf, B ivalent, 30 Mcg, IM, 12 yrs and above ([employer]) 06/28/2022 Influenza, Whole Virus 07/12/1999 Pneumococcal Conjugate [...] on file documented as of this encounter Procedure Notes * Kevin Espino DO - 01/16/2024 5:15 PM EDTAssociated Order(s): EKG REPORT REASON FOR STUDY: s/p tavr CONCLUSIONS: Atrial fibrillation with slow ventricular response T wave abnormality, consider lateral ischemia When compared with ECG of 16-Jan-2024 15:22, No significant change was found Ventricular Rate: 58 QRS Duration: 84 QT/QTc: 450/441 ms P-R-T [place]: 0 : 22 : 147 degrees documented in this encounter Plan of Treatment Upcoming Encounters Date Type Department Care Team (Late st Contact Info) Description 01/24/2024 3:00 PM EDT Office Visit Cardiology, [facility] [address] [facility] [place] [address] Adelina Riddle CRNP [address] [facility] [place] [address] 03/04/2024 2:30 PM EDT Laboratory Laboratory, [facility] [address] [facility] [place] [id number] [facility] [address] [facility] [place] [address] 03/04/2024 3:00 PM EDT Office Visit Cardiology [facility] [address] [facility] [place] [address] Adelina Riddle CRNP [address] [place] [address] 03/15/2024 1:00 PM EDT Office Visit Family [address] [facility] [place] [address] Chino Leavitt, DO [address] [place] [address] 04/03/2024 7:15 AM EDT Cardiac Studies Cardiac Studies, [facility] [address] [facility] [place] [address] 04/17/2024 12:30 PM EDT Office Visit Dermatology [facility] [place] [address] [facility] [address] Trisha Pulido PA-C [address] [facility] [place] [address] 11/18/2024 1:00 PM EDT PulmDiagnostic Pulmonary Function Lab Urmila Irving [address] [place] [address] [place], [address] [facility] [place] [address] 11/18/2024 1:40 PM EDT Office Visit Pulmonary Medicine [facility]ila Irving [address] [place] [phone] Wander Gonzalez MD [address] [place] [address] Health Maintenance Due Date Last Done Comments [...] this encounter Medical Devices Implanted Type Area Prep Room Supervisor Device Identifier Shelf Expiration Date Model / Serial / Lot Cath Thermodilution 6fr - [id number] Implanted:Qty: 1 on 11/04/2021 by Kevin Espino DO at [facility] [employer] CURRY [id number] 10/13/2023 [id number] / / [id number] Valve Transcath Resilia 29mm - [id number] Implanted:Qty: 1 on 01/16/2024 by Melo Pena MD at [facility] [employer] [id number] / / documented as of this encounter Procedures Procedure Name Priority Date/Time Associated Diagnosis Comments EKG REPORT 01/16/2024 5:15 PM EDT documented in this encounter Results * EKG REPORT (01/16/2024 5:15 PM EDT) 01/16/2024 5:15 PM EDT Narrative Procedure Note Kevin Espino DO - 01/16/2024 5:15 PM EDT REASON FOR STUDY: s/p tavr CONCLUSIONS: Atrial fibrillation with slow ventricular response T wave abnormality, consider lateral ischemia When compared with ECG of 16-Jan-2024 15:22, No significant change was found Ventricular Rate: 58 QRS Duration: 84 QT/QTc: 450/441 ms P-R-T [place]: 0 : 22 : 147 degrees Hernandez Lau DO EKG documented in this encounter Advance Directives Latest Code Status on File Code Status Date Activated Date Inactivated Comments Full Code 01/16/2024 2:56 PM This order reflects the patients wishes and were consensually agreed upon. Question Answer Comments Discussion of Advance Directives occurred with: Patient Care Teams Scarf And Anneal Operator Relationship Specialty Start Date End Date Chino Leavitt DO [address] [place] [address] PCP - General Internal Medicine 01/23/23 documented as of this encounter
--- OUTSIDE RECORDS SUMMARY | 2024-03-18 19:24 | External Medical Summary ---
Author Name Unknown Address Unknown Organization K01:[facility]ORY [facility] [place] - [address] [place] [address] Laboratory Report Ordering Provider Test Date Status ROSA SALVADOR 01/12/2024 13:47:56 Final Observation Date Value Abnormality Reference (Units ) Status Albumin 01/12/2024 13:47:56 4.6 3.8-5.0 (g/dL) Final AST (Aspartate aminotransferase) 01/12/2024 13:47:56 28 10-50 (U/L) Final Alk Phos 01/12/2024 13:47:56 127 35-130 (U/L) Final ALT (Alanine aminotransferase) 01/12/2024 13:47:56 41 10-50 (U/L) Final Bilirubin, Total 01/12/2024 13:47:56 1.0 <=1.2 (mg/dL) Final Bilirubin, Direct 01/12/2024 13:47:56 0.3 0.0-0.3 (mg/dL) Final Protein 01/12/2024 13:47:56 6.9 6.0-8.3 (g/dL) Final Performing Location [facility]ORY [facility] [place] - [address] [place] [address]
--- OUTSIDE RECORDS SUMMARY | 2024-03-18 19:24 | External Medical Summary ---
Author Name Unknown Address Unknown Organization K01:[facility]ORY [facility] [place] - [address] [facility] [address] [place] [address] Laboratory Report Ordering Provider Test Date Status JHOANA REESE MARY JO 01/16/2024 11:34:11 Final Observation Date Value Abnormality Reference (Units ) Status BUN 01/16/2024 11:34:11 26 Above high normal 6-20 (mg/dL) Final Creatinine 01/16/2024 11:34:11 1.2 0.6-1.2 (mg/dL) Final Glomerular filtration rate/1.73 sq M.predicted [Volume Rate/Area] in Serum, Plasma or Blood by Creatinine-based formula (CKD-EPI) 01/16/2024 11:34:11 64 >=60 (mL/min) Final eGFR is calculated based on the CKD-EPI 2020 equation Sodium 01/16/2024 11:34:11 141 135-146 (m mol/L) Final Potassium 01/16/2024 11:34:11 3.5 3.5-5.1 (m mol/L) Final Cl 01/16/2024 11:34:11 103 98-107 (mm ol/L) Final CO2 01/16/2024 11:34:11 26 22-32 (mmo l/L) Final Anion gap 01/16/2024 11:34:11 12 7-15 (mmol /L) Final Glucose 01/16/2024 11:34:11 87 70-120 (mg /dL) Final Calcium 01/16/2024 11:34:11 9.5 8.4-10.2 ( mg/dL) Final Performing Location [facility]ORY [facility] [place] - [address] [place] [address]
--- OUTSIDE RECORDS SUMMARY | 2024-03-18 19:24 | External Medical Summary ---
Author Name Unknown Address Unknown Organization K01:[facility] [place] [address] [place] [address] Laboratory Report Ordering Provider Test Date Status ROSA SALVADOR 01/16/2024 11:34:11 Final Exclude Heart Failure: <300 pg/mL
Diagnose Heart Failure:
Age <50 yr: >450 pg/mL
50-75 yr: >900 pg/mL
>75 yr: >1800 pg/mL
GFR is 30-59 mL/min: >1200 pg/mL or Age- adjusted values
GFR <30 mL/min: do not use, not reliable

Prognostic threshold: 1000 pg/mL Observation Date Value Abnormality Reference (Units ) Status BNP, Pro-hormone 01/16/2024 11:34:11 1238 Above high no rmal <300 (pg/mL) Final Performing Location [facility] [place] [address] [place] [address]
--- OUTSIDE RECORDS SUMMARY | 2024-03-18 19:24 | External Medical Summary ---
Author Name Unknown Address Unknown Organization K01:LAB[facility]ORY [facility] [place] - [address] [place] [address] Laboratory Report Ordering Provider Test Date Status RSOA SALVADOR 01/12/2024 13:47:56 Final Observation Date Value Abnormality Reference (Units ) Status WBC, Total 01/12/2024 13:47:56 7.04 4.00-10.80 (K/uL) Final RBC 01/12/2024 13:47:56 5.16 4.50-5.25 (M/uL) Final Hemoglobin 01/12/2024 13:47:56 15.6 14.0-16.8 (g/dL) Final HCT 01/12/2024 13:47:56 48.7 Above high normal 40.0-48.4 (%) Final MCV 01/12/2024 13:47:56 94.4 82.0-99.5 (fL) Final MCH 01/12/2024 13:47:56 30.2 27.0-34.0 (pg) Final MCHC 01/12/2024 13:47:56 32.0 32.0-36.0 (g/dL) Final RDW 01/12/2024 13:47:56 14.5 11.5-15.5 (%) Final Platelets 01/12/2024 13:47:56 211 140-400 (K/uL) Final MPV 01/12/2024 13:47:56 10.8 6.6-11.1 (fL) Final Nucleated erythrocytes/100 leukocytes [Ratio] in Blood by Automated count 01/12/2024 13:47:56 0 <=0 (/100 WBCs) Final Performing Location LAB[facility]ATORY [facility] [place] - [address] [place] [address]
--- OUTSIDE RECORDS SUMMARY | 2024-03-18 19:24 | External Medical Summary ---
Author Name Unknown Address Unknown Organization : Laboratory Report Ordering Provider Test Date Status JHOANA REESE 01/16/2024 11:34:11 Final Observation Date Value Abnormality Reference (Units ) Status Performing Location
--- OUTSIDE RECORDS SUMMARY | 2024-03-18 19:24 | External Medical Summary ---
Author Name Unknown Address Unknown Organization K01:[facility] [place] [address] [place] [address] Laboratory Report Ordering Provider Test Date Status STACY VACA 01/18/2024 04:27:00 Final Observation Date Value Abnormality Reference (Units ) Status BUN 01/18/2024 04:27:00 20 6-20 (mg/dL) Final Creatinine 01/18/2024 04:27:00 1.0 0.6-1.2 (mg/dL) Final Glomerular filtration rate/1.73 sq M.predicted [Volume Rate/Area] in Serum, Plasma or Blood by Creatinine-based formula (CKD-EPI) 01/18/2024 04:27:00 78 >=60 (mL/min) Final eGFR is calculated based on the CKD-EPI 2020 equation Sodium 01/18/2024 04:27:00 140 135-146 (m mol/L) Final Potassium 01/18/2024 04:27:00 3.8 3.5-5.1 (m mol/L) Final Cl 01/18/2024 04:27:00 106 98-107 (mm ol/L) Final CO2 01/18/2024 04:27:00 25 22-32 (mmo l/L) Final Anion gap 01/18/2024 04:27:00 9 7-15 (mmol /L) Final Glucose 01/18/2024 04:27:00 98 70-120 (mg /dL) Final Calcium 01/18/2024 04:27:00 9.0 8.4-10.2 ( mg/dL) Final Performing Location [facility] [facility] [place] [address] [place] [address]
--- OUTSIDE RECORDS SUMMARY | 2024-03-18 19:24 | External Medical Summary ---
Author Name Unknown Address Unknown Organization K01:[facility]ORY [facility] [place] - [address] [place] [address] Laboratory Report Ordering Provider Test Date Status HUGH,NICOLÁSNUZHAT MARY JO 01/16/2024 11:34:11 Final Observation Date Value Abnormality Reference (Units ) Status WBC, Total 01/16/2024 11:34:11 8.50 4.00-10.8 0 (K/uL) Final RBC 01/16/2024 11:34:11 4.82 4.50-5.25 (M/uL) Final Hemoglobin 01/16/2024 11:34:11 14.7 14.0-16.8 (g/dL) Final Anemia reflex testing trigge rs on a HGB < 12.0 for Females and HGB < 13.0 for Males in accordance with the WHO Anemia Guidelines
Anemia reflex testing triggers on a HGB < 12.0 for Females and HGB < 13.0 for Males in accordance with the WHO Anemia Guidelines HCT 01/16/2024 11:34:11 45.8 40.0-48.4 (%) Final MCV 01/16/2024 11:34:11 95.0 82.0-99.5 (fL) Final MCH 01/16/2024 11:34:11 30.5 27.0-34.0 (pg) Final MCHC 01/16/2024 11:34:11 32.1 32.0-36.0 (g/dL) Final RDW 01/16/2024 11:34:11 14.4 11.5-15.5 (%) Final Platelets 01/16/2024 11:34:11 196 140-400 (K /uL) Final MPV 01/16/2024 11:34:11 10.2 6.6-11.1 ( fL) Final Nucleated erythrocytes/100 leukocytes [Ratio] in Blood by Automated count 01/16/2024 11:34:11 0 <=0 (/100 WBCs) Fi [facility] Performing Location LABORATORY [facility] - [address] [facility] [address]
--- OUTSIDE RECORDS SUMMARY | 2024-03-18 19:24 | External Medical Summary ---
Author Name Unknown Address Unknown Organization K01:LABORATORY [facility] - [address] [place] [address] Laboratory Report Ordering Provider Test Date Status STACY VACA 01/17/2024 04:24:00 Final Observation Date Value Abnormality Reference (Units ) Status Magnesium 01/17/2024 04:24:00 2.4 1.5-2.6 (m g/dL) Final Performing Location LABORATORY [facility] - [address] [place] [address]
--- OUTSIDE RECORDS SUMMARY | 2024-03-18 19:24 | External Medical Summary ---
Author Name Unknown Address Unknown Organization K01:[facility] [place] [address] [place] [address] Laboratory Report Ordering Provider Test Date Status STACY VACA 01/16/2024 17:13:00 Final Observation Date Value Abnormality Reference (Units ) Status WBC, Total 01/16/2024 17:13:00 10.45 4.00-10.80 (K/uL) Final RBC 01/16/2024 17:13:00 4.46 4.50-5.25 (M/uL) Final Hemoglobin 01/16/2024 17:13:00 14.1 14.0-16.8 (g/dL) Final HCT 01/16/2024 17:13:00 43.0 40.0-48.4 (%) Final MCV 01/16/2024 17:13:00 96.4 82.0-99.5 (fL) Final MCH 01/16/2024 17:13:00 31.6 27.0-34.0 (pg) Final MCHC 01/16/2024 17:13:00 32.8 32.0-36.0 (g/dL) Final RDW 01/16/2024 17:13:00 14.5 11.5-15.5 (%) Final Platelets 01/16/2024 17:13:00 151 140-400 (K/uL) Final MPV 01/16/2024 17:13:00 9.7 6.6-11.1 (fL) Final Nucleated erythrocytes/100 leukocytes [Ratio] in Blood by Automated count 01/16/2024 17:13:00 0 <=0 (/100 WBCs) Final Performing Location LABORATORY [facility] - [address] [place] [address]
--- OUTSIDE RECORDS SUMMARY | 2024-03-18 19:24 | External Medical Summary | Summary of Care ---
Author Name Unknown Organization [facility] Address [address] [place] [address] Phone [phone] Care Team Providers Care Welder Setter Electron Beam Machine Name Role Phone Chino Leavitt DO Primary Care Provider Encounter Details Date Type Department Care Team (Late st Contact Info) Description 01/11/2024 Orders Only Cardiology [place] [address] [place] [address] Dianne Purdy, RN Aortic valve stenosis* Allergies No known active allergiesdocumented as of this encounter (statuses as of 01/11/2024) Medications Medication Sig Dispensed Refills Start Date End Date Status Mwtmuonqusp-Wungepqhc-Pjl C-Mn (GLUCOSAMINE CHONDR 500 COMPLEX) Capsule Take 1 Capsule by mouth every morning. 0 Active [place] 3 1000 MG CAPS Take 1 Capsule by mouth daily. 0 Active Multiple Vitamin (MULTI-DAY VITAMINS) Tablet Take 1 Tab by mouth daily. 0 Active Albuterol Sulfate HFA 108 (90 Base) MCG/ACT Inhalation Aerosol Solution as needed. 0 2 Active Co Q 10 10 MG Oral Capsule Take by mouth 1 Capsule daily . 0 Active B-12 500 MCG Oral Tablet Take 1 Capsule by mouth in the morning. 0 Active BiPAP every night at bedtime. 18/7 cm 0 Active Betamethasone Dipropionate 0.05 % External Cream (Diprosone) as needed. 0 3 Active Ascorbic Acid 250 MG Oral Tablet Take 1 Tablet by mouth in the morning. 0 3 Active Acetaminophen 500 MG Oral Tablet (Tylenol) Take 2 Tablets by mouth 2 times a day as needed. 0 1 Active DULoxetine HCl 60 MG Oral Capsule Delayed Release Particles Take 1 Capsule by mouth every evening. 0 Active Torsemide 20 MG Oral Tablet (Demadex)Indications:Pulm onary hypertension ([facility]) TAKE 2 TABLETS DAILY FIRST THING IN THE MORNING 180 Tablet 3 3 Active Iron 325 (65 Fe) MG Oral Tablet Take 1 Tablet by mouth in the morning. 0 3 Active Zolpidem Tartrate 5 MG Oral Tablet (Ambien)Indications:Prima ry insomnia TAKE 1 TABLET AT BEDTIME NEEDED FOR SLEEP 30 Tablet 0 4 Active Additional Information Patient taking differently: 6.25 mgOral HS, Reported on 12/13/2023 NATURAL SUPPLEMENT Take 20 mg by mouth in the morning and 20 mg before bedtime. CBD oil. 0 Active Metoprolol Succinate ER 50 MG Oral Tablet Extended Release 24 Hour (Toprol XL)Indications:HFrEF (heart failure with reduced ejection fraction) ([facility]),Longstanding persistent atrial fibrillation (HCC) Take 1.5 Tablets by mouth in the morning. 135 Tablet 3 4 Active Additional Information Patient taking differently: 50 mgOral Daily(AM), Reported on 12/13/2023 Potassium Chloride Christina ER 10 MEQ Oral Tablet Extended ReleaseIndications:Heart failure with preserved left ventricular function (HFpEF) ([facility]) Take 1 Tablet by mouth in the morning. 90 Tablet 3 4 Active Spironolactone 25 MG Oral Tablet (Aldactone)Indications:He art failure with preserved left ventricular function (HFpEF) ([facility]) Take 1 Tablet by mouth in [...] daily x 2 weeks 40 g 0 4 Active CBD [place] 4-3-9-1.2 % External Patch (Fwzm-Wkvqymf-Feaplv Michael-Camph) Apply topically to affected area. 0 Active metOLazone 5 MG Oral Tablet (Zaroxolyn)Indications:Ce ntrilobular emphysema (HCC),Pulmonary hypertension (HCC),Diaphragm dysfunction Take 1 Tablet by mouth as needed for Dyspnea. As needed average is about once every 10 days per patient 0 4 Active Diclofenac Sodium 1 % External Gel (Voltaren) Apply topically to affected area. Apply to right hip and knee 0 Active Atorvastatin Calcium 40 MG Oral Tablet (Lipitor)Indications:Pure hypercholesterolemia Take 1 Tablet by mouth in the morning. 90 Tablet 3 4 Active Apixaban 5 MG Oral Tablet (Eliquis) Take 1 Tablet by mouth in the morning and 1 Tablet before bedtime. 180 Tablet 3 4 Active Tamsulosin HCl 0.4 MG Oral Capsule (Flomax) Take 1 Capsule by mouth in the morning. 90 Capsule 3 4 Active documented as of this encounter (statuses as of 01/11/2024) Active Problems Problem Noted Date Diagnosed Date Iron deficiency anemia secon ramonita to inadequate dietary iron intake 04/21/2023 Paroxysmal atrial fibrillation 01/25/2023 COPD, group B, by GOLD 2017 classification 01/09 Overview: Per COPD GOLD Classification Neuromuscular respiratory weakness 12/29/2022 Heart failure with preserved left ventricular function (HFpEF) 05/26/2022 Sleep apnea, obstructive 05/26/2022 Severe aortic valve stenosis 05/26/2022 Diaphragm dysfunction 05/26/2022 Mixed restrictive and obstructive lung disease 0 05/26/2022 Non-occlusive coronary artery disease 05/26/2022 documented as of this encounter (statuses as of 01/11/2024) Resolved Problems Problem Noted Date Diagnosed Date Resolved Date COPD with emphysema 05/26/2022 03/03/20 23 Anemia 05/26/2022 04/21/2023 documented as of this encounter (statuses as of 01/11/2024) Immunizations Name Administration Dates Next Due COVID-19 mRNA, LNP-s, No Pre serve, 2-Dose Series ([employer]) 03/30/2022,06/23/2021,10/02/2020,09/11 COVID-19, MRNA-LNP, 23-24, P F, 30 MCG/0.3 mL, 12 YRS AND ABOVE, IM ([facility]) 08/14/2023 Covid-19, Mrna, Lnp-s, Pf, B [...] on file documented as of this encounter Plan of Treatment Upcoming Encounters Date Type Department Care Team (Late st Contact Info) Description 01/16/2024 11:00 AM EDT Hospital Encounter [facility], Cardiac Recovery Suite Waiting Unit, [address] [place] [address] Melo Pena MD [address] [place] [address] 01/16/2024 11:00 AM EDT - 01/16/2024 12:10 PM EDT Surgery [facility] Cardiac Recovery Suite Waiting Unit, [address] [place] [address] Melo Pena MD [address] [place] [address] REPLACE AORTIC VALVE, PERCUTANEOUS FEMORAL 01/16/2024 11:00 AM EDT [facility] [address] [place] [address] [facility] Cardiac [facility] [address] [place] [address] 03/15/2024 1:00 PM EDT Office Visit Family Practice [address] [place] [address] [place] [phone] Chino Leavitt, [address] [place] [address] 04/17/2024 12:30 PM EDT Office Visit Dermatology [facility], [address] [address] Trisha Pulido PA-C [address] [place] [address] 11/18/2024 1:00 PM EDT PulmDiagnostic Pulmonary Function Lab [facility] [address] [place] [address] [address], [address] [place] [address] 11/18/2024 1:40 PM EDT Office Visit Pulmonary Medicine [facility] [address] [facility] [place] [phone] Wander Gonzalez MD [address] [facility] [address] Scheduled Orders Name Type Priority Associated Diagnoses Orde r Schedule BASIC METABOLIC PANEL Lab Routine Aortic valve stenosis Expected: 01/12/2024, Expires: 02/11/2024 CBC Lab Routine Aortic valve stenosis Expected: 01/12/2024, Expires: 02/11/2024 PT INR Lab Routine Aortic valve stenosis Expected: 01/12/2024, Expires: 02/11/2024 HEPATIC FUNCTION PANEL Lab Routine Aortic valve stenosis Expected: 01/12/2024, Expires: 02/11/2024 TYPE AND SCREEN Lab Routine Aortic valve stenosis Expected: 01/12/2024, Expires: 02/10/2025 ABO/RH Lab Routine Aortic valve stenosis Expected: 01/12/2024, Expires: 02/10/2025 Scheduled Procedures Name Priority Associated Diagnoses Date/Ti me REPLACE AORTIC VALVE, PERCUTANEOUS FEMORAL Aortic stenosis 01/16/2024 11:00 AM EDT REPLACE AORTIC VALVE, PERCUTANEOUS FEMORAL Aortic stenosis 01/16/2024 11:00 AM EDT Health Maintenance Due Date Last Done Comments Hepatitis C Screening 1968 Depression Screening 08/13/2024 08/13/2023 O2 ASSESSMENT COMPLETED IN PAST YEAR FOR COPD 12/19/2024 12/20/2023 DTaP,Tdap,and Td Vaccines (3 - Td or [...] this encounter Medical Devices Implanted Type Area Upper Leather Sorter Device Identifier Shelf Expiration Date Model / Serial / Lot Cath Thermodilution 6fr - [id number] Implanted:Qty: 1 on 11/04/2021 by Kevin Espino DO at [facility] [employer] [id number] 10/13/2023 [id number] / / [id number] documented as of this encounter Visit Diagnoses Diagnosis Aortic valve stenosis- Primary Aortic valve disorders Aortic stenosis Aortic valve disorders documented in this encounter Care Teams Welder Setter Electron Beam Machine Relationship Specialty Start Date End Date Chino Leavitt DO [address] [place] [address] PCP - General Internal Medicine 01/23/23 documented as of this encounter
--- OUTSIDE RECORDS SUMMARY | 2024-03-18 19:24 | External Medical Summary ---
Author Name Unknown Address Unknown Organization [id number]:[facility] [address] [place] [address] Laboratory Report Ordering Provider Test Date Status STACY VACA 01/18/2024 04:27:00 Final Observation Date Value Abnormality Reference (Units ) Status Magnesium 01/18/2024 04:27:00 2.4 1.5-2.6 (m g/dL) Final Performing Location [facility] - [address] [place] [address]
--- OUTSIDE RECORDS SUMMARY | 2024-03-18 19:24 | External Medical Summary ---
Author Name Unknown Address Unknown Organization [id number]:[facility] [address] [facility] [address] [facility] [address] Laboratory Report Ordering Provider Test Date Status STACY VACA 01/18/2024 04:27:00 Final Observation Date Value Abnormality Reference (Units ) Status WBC, Total 01/18/2024 04:27:00 8.63 4.00-10.80 (K/uL) Final RBC 01/18/2024 04:27:00 3.94 4.50-5.25 (M/uL) Final Hemoglobin 01/18/2024 04:27:00 12.3 Below low normal 14.0-16.8 (g/dL) Final HCT 01/18/2024 04:27:00 37.3 Below low normal 40.0-48.4 (%) Final MCV 01/18/2024 04:27:00 94.7 82.0-99.5 (fL) Final MCH 01/18/2024 04:27:00 31.2 27.0-34.0 (pg) Final MCHC 01/18/2024 04:27:00 33.0 32.0-36.0 (g/dL) Final RDW 01/18/2024 04:27:00 14.0 11.5-15.5 (%) Final Platelets 01/18/2024 04:27:00 114 Below low normal 140-400 (K/uL) Final MPV 01/18/2024 04:27:00 10.2 6.6-11.1 (fL) Final Nucleated erythrocytes/100 leukocytes [Ratio] in Blood by Automated count 01/18/2024 04:27:00 0 <=0 (/100 WBCs) Final Performing Location [facility] [address] [place] [address]
--- OUTSIDE RECORDS SUMMARY | 2024-03-18 19:24 | External Medical Summary | Summary of Care ---
Author Name Unknown Organization [facility] Address [address] [place] [address] Phone [phone] Care Team Providers Care Watershed Coordinator Name Role Phone Chino Leavitt DO Primary Care Provider [phone] Reason for Visit * Reason Onset Date Comments Films 01/10/2024 Encounter Details Date Type Department Care Team (Late st Contact Info) Description 01/10/2024 Telephone Radiology Film File [address] [place], [place] [id number] Melo Pena MD [address] [place], [place] [phone] Films Allergies No known active allergiesdocumented as of this encounter (statuses as of 01/10/2024) Medications Medication Sig Dispensed Refills Start Date End Date Status Egrvgoeqfbi-Itmvyolvn-Hbw C-Mn (GLUCOSAMINE CHONDR 500 COMPLEX) Capsule Take 1 Capsule by mouth every morning. 0 Active [place] 3 1000 MG CAPS Take 1 Capsule [...] 20 MG Oral Tablet (Demadex)Indications:Pulm onary hypertension ([facility]) TAKE 2 TABLETS DAILY FIRST THING IN [...] [facility]Longstanding persistent atrial fibrillation ([facility]) Take 1.5 Tablets by mouth in the [...] weeks 40 g 0 4 Active CBD [place] 4-3-9-1.2 % External Patch (Vhhs-Vuyvbqm-Fvtakh Michael-Camph) Apply topically to affected area. 0 [...] as of this encounter (statuses as of 01/10/2024) Active Problems Problem Noted Date Diagnosed Date [...] as of this encounter (statuses as of 01/10/2024) Resolved Problems Problem Noted Date Diagnosed Date Resolved Date COPD with emphysema 05/26/2022 03/03/20 23 Anemia 05/26/2022 04/21/2023 documented as of this encounter (statuses as of 01/10/2024) Immunizations Name Administration Dates Next Due COVID-19 mRNA, LNP-s, No Pre serve, 2-Dose Series ([employer]) 03/30/2022,06/23/2021,10/02/2020,09/11 COVID-19, MRNA-LNP, 23-24, P F, 30 [...] on file documented as of this encounter Miscellaneous Notes * Telephone Encounter - Theresa Bowles OSA - 01/10/2024 10:02 AM EDT Received request from Dianne Purdy for 12/20/23 CT images be put on disc for patients upcoming appointment. [place] Authorization on file to release. CD created and handed to Dianne. documented in this encounter Plan of Treatment Upcoming Encounters Date Type Department Care Team (Late st Contact Info) Description 03/15/2024 1:00 PM EDT Office Visit Family Practice [address] [facility] [address] [place] [address] Chino Leavitt, [address] [place] [address] 04/17/2024 12:30 PM EDT Office Visit Dermatology [facility] [place] [address] [facility] [place] [address] Trisha Pulido PA-C [address] [facility] [place] [address] 11/18/2024 1:00 PM EDT PulmDiagnostic Pulmonary Function Lab [place] [address] [place] [address] [address], [address] [facility] [place] [address] 11/18/2024 1:40 PM EDT Office Visit Pulmonary Medicine [place] [address] [phone] Wander Gonzalez MD [address] [place] [address] Health Maintenance Due Date Last Done Comments [...] this encounter Medical Devices Implanted Type Area Mixer Driver Device Identifier Shelf Expiration Date Model / Serial / Lot Cath Thermodilution 6fr - [id number] Implanted:Qty: 1 on 11/04/2021 by Kevin Espino DO at [facility] [employer] [id number] 10/13/2023 [id number] / / [id number] documented as of this encounter Care Teams Watershed Coordinator Relationship Specialty Start Date End Date Chino Leavitt DO [address] [place] [address] PCP - General Internal Medicine 01/23/23 documented as of this encounter
--- OUTSIDE RECORDS SUMMARY | 2024-03-18 19:24 | External Medical Summary ---
Author Name Unknown Address Unknown Organization : Laboratory Report Ordering Provider Test Date Status CL PATINO 01/16/2024 13:57:37 Final NORMAL (NON-HEPARINIZED) 74- 137 SECONDS
HEPARINIZED 200+ SECONDS
CRITICAL GREATER THAN 1000 SECONDS
null Observation Date Value Abnormality Reference (Units ) Status Kaolin activated time [Units/volume] in Blood 01/16/2024 13:57:37 363 50-1000 (secs) Final Performing Location
--- OUTSIDE RECORDS SUMMARY | 2024-03-18 19:24 | External Medical Summary ---
Author Name Unknown Address Unknown Organization [id number]:[facility] [place] [address] [place] [address] Laboratory Report Ordering Provider Test Date Status STACY VACA 01/17/2024 04:23:00 Final Observation Date Value Abnormality Reference (Units ) Status WBC, Total 01/17/2024 04:23:00 9.89 4.00-10.80 (K/uL) Final RBC 01/17/2024 04:23:00 4.39 4.50-5.25 (M/uL) Final Hemoglobin 01/17/2024 04:23:00 13.5 Below low normal 14.0-16.8 (g/dL) Final HCT 01/17/2024 04:23:00 42.8 40.0-48.4 (%) Final MCV 01/17/2024 04:23:00 97.5 82.0-99.5 (fL) Final MCH 01/17/2024 04:23:00 30.8 27.0-34.0 (pg) Final MCHC 01/17/2024 04:23:00 31.5 32.0-36.0 (g/dL) Final RDW 01/17/2024 04:23:00 14.2 11.5-15.5 (%) Final Platelets 01/17/2024 04:23:00 145 140-400 (K/uL) Final MPV 01/17/2024 04:23:00 10.1 6.6-11.1 (fL) Final Nucleated erythrocytes/100 leukocytes [Ratio] in Blood by Automated count 01/17/2024 04:23:00 0 <=0 (/100 WBCs) Final Performing Location [facility] [place] [address] [place] [address]
--- OUTSIDE RECORDS SUMMARY | 2024-03-18 19:24 | External Medical Summary ---
Author Name Unknown Address Unknown Organization [id number]:[facility] [place] [address] [place] [address] Laboratory Report Ordering Provider Test Date Status ROSA SALVADOR 01/12/2024 13:47:56 Final Observation Date Value Abnormality Reference (Units ) Status BUN 01/12/2024 13:47:56 28 Above high normal 6-20 (mg/dL) Final Creatinine 01/12/2024 13:47:56 1.3 Above high normal 0.6-1.2 (mg/dL) Final Glomerular filtration rate/1.73 sq M.predicted [Volume Rate/Area] in Serum, Plasma or Blood by Creatinine-based formula (CKD-EPI) 01/12/2024 13:47:56 57 Below low normal >=60 (mL/min) Final eGFR is calculated based on the CKD-EPI 2020 equation Sodium 01/12/2024 13:47:56 144 135-146 (m mol/L) Final Potassium 01/12/2024 13:47:56 4.3 3.5-5.1 (m mol/L) Final Cl 01/12/2024 13:47:56 99 98-107 (mm ol/L) Final CO2 01/12/2024 13:47:56 32 22-32 (mmo l/L) Final Anion gap 01/12/2024 13:47:56 13 7-15 (mmol /L) Final Glucose 01/12/2024 13:47:56 100 70-120 (mg /dL) Final Calcium 01/12/2024 13:47:56 10.0 8.4-10.2 ( mg/dL) Final Performing Location [facility] [place] [address] [place] [address]
--- OUTSIDE RECORDS SUMMARY | 2024-03-18 19:24 | External Medical Summary ---
Author Name Unknown Address Unknown Organization K01:[facility] - [address] [place] [address] Laboratory Report Ordering Provider Test Date Status STACY VACA 01/16/2024 17:13:00 Final Observation Date Value Abnormality Reference (Units ) Status Magnesium 01/16/2024 17:13:00 2.2 1.5-2.6 (m g/dL) Final Performing Location [facility] - [address] [place] [address]
--- OUTSIDE RECORDS SUMMARY | 2024-03-18 19:24 | External Medical Summary ---
Author Name Unknown Address Unknown Organization K01:[facility]ORY [facility] - [address] [place] [address] Laboratory Report Ordering Provider Test Date Status STACY VACA 01/16/2024 17:13:00 Final Observation Date Value Abnormality Reference (Units ) Status BUN 01/16/2024 17:13:00 23 Above high normal 6-20 (mg/dL) Final Creatinine 01/16/2024 17:13:00 1.2 0.6-1.2 (mg/dL) Final Glomerular filtration rate/1.73 sq M.predicted [Volume Rate/Area] in Serum, Plasma or Blood by Creatinine-based formula (CKD-EPI) 01/16/2024 17:13:00 65 >=60 (mL/min) Final eGFR is calculated based on the CKD-EPI 2020 equation Sodium 01/16/2024 17:13:00 140 135-146 (m mol/L) Final Potassium 01/16/2024 17:13:00 4.1 3.5-5.1 (m mol/L) Final Cl 01/16/2024 17:13:00 104 98-107 (mm ol/L) Final CO2 01/16/2024 17:13:00 29 22-32 (mmo l/L) Final Anion gap 01/16/2024 17:13:00 7 7-15 (mmol /L) Final Glucose 01/16/2024 17:13:00 96 70-120 (mg /dL) Final Calcium 01/16/2024 17:13:00 8.8 8.4-10.2 ( mg/dL) Final Performing Location LABORATORY [facility] - [address] [place] [address]
--- OUTSIDE RECORDS SUMMARY | 2024-03-18 19:24 | External Medical Summary | Summary of Care ---
Author Name Unknown Organization [facility] Address [address] [place] [address] Phone [phone] Care Team Providers Care Jacker Feeder Name Role Phone Chino Leavitt DO Primary Care Provider [phone] Reason for Visit * Auth/Cert Specialty Diagnoses / Procedures Referred By Sabino rodriguez Referred To Contact Diagnoses Aortic stenosis Aortic stenosis [I35.0] Procedures REPLACE AORTIC VALVE, PERCUTANEOUS FEMORAL REPLACE AORTIC VALVE, PERCUTANEOUS FEMORAL REPLACE AORTIC VALVE, PERCUTANEOUS FEMORAL REPLACE AORTIC VALVE, PERCUTANEOUS FEMORAL Melo Pena MD [address] [place] [address] Crs Waiting Ip [facility] [address] [place] [address] Referral ID Status Reason Start Date Expiration Date Visits Re quested Visits Authorized [id number] Encounter Details Date Type Department Care Team (Latest Contact Info) Description 01/16/2024 12:36 PM EDT - 01/16/2024 11:59 PM EDT Hospital Encounter Cardiac Studies [facility] [address] [place] [id number] Discharge Disposition: Home - Self Care Allergies No known active allergiesdocumented as of this encounter (statuses as of 01/17/2024) Medications Medication Sig Dispensed Refills Start Date End Date Status Kfedjzprpez-Flxlbxtpo-Ge t C-Mn (GLUCOSAMINE CHONDR 500 COMPLEX) Capsule Take 1 Capsule by mouth every morning. 0 Suspended [place] 3 1000 MG CAPS Take 1 Capsule [...] 20 MG Oral Tablet (Demadex)Indications:Pul monary hypertension ([facility]) TAKE 2 TABLETS DAILY FIRST THING IN THE MORNING 180 Tablet 3 04/08/20 Suspended Additional Information Iron 325 (65 Fe) [...] ([facility]),Longstanding persistent atrial fibrillation ([facility]) Take 1.5 Tablets by mouth in [...] before bedtime. 180 Tablet 3 12/13/19 24 Suspended Additional Information [...] mRNA, LNP-s, No Pre serve, 2-Dose Series ([employer]) 03/30/2022,06/23/2021,10/02/2020,09/11 COVID-19, MRNA-LNP, 23-24, P F, 30 [...] Visit Cardiology, [facility] [address] [facility] [place] [address] Adelina Riddle CRNP [address] [facility] [place] [address] 03/04/2024 2:30 PM EDT Laboratory Laboratory, [facility] [address] [facility] [place] [phone] [facility] [address] [facility] [place] [address] 03/04/2024 3:00 PM EDT Office Visit Cardiology, [facility] [address] [facility] [place] [address] Adelina Riddle CRNP [address] [facility] [place] [address] 03/15/2024 1:00 PM EDT Office Visit Family Practice [address] [place] [address] 293 [place] [address] Chino Leavitt DO [address] [facility] [place] [address] 04/03/2024 7:15 AM EDT Cardiac Studies Cardiac Studies, [facility] [address] [facility] [place] [address] 04/17/2024 12:30 PM EDT Office Visit Dermatology [facility] [place] [address] [place] [address] Trisha Pulido PA-C [address] [place] [address] 11/18/2024 1:00 PM EDT PulmDiagnostic Pulmonary Function Lab [place] [address] [address] [address], [address] [facility] [place] [address] 11/18/2024 1:40 PM EDT Office Visit Pulmonary Medicine [place] [address] [place] [place] [phone] Wander Gonzalez MD [address] [place] [address] Health Maintenance Due Date Last Done Comments [...] this encounter Medical Devices Implanted Type Area Gang Miner Device Identifier Shelf Expiration Date Model / Serial / Lot Cath Thermodilution 6fr - [id number] Implanted:Qty: 1 on 11/04/2021 by Kevin Espino DO at [facility] [employer] [id number] 10/13/2023 [id number] / / [id number] Valve Transcath Resilia 29mm - [id number] Implanted:Qty: 1 on 01/16/2024 by Melo Pena MD at [facility] [employer] [id number] / documented as of this encounter Procedures Procedure Name Priority Date/Time Associated Diagnosis Comments ECHO, COMPLETE (2D), TRANS-THORACIC STAT 01/16/2024 3:57 PM EDT Status post cardiac surgery documented in this encounter Results * ECHO, COMPLETE (2D), TRANS-THORACIC (01/16/2024 3:57 PM EDT) LEFT VENTRICULAR EJECTION FRACTION 50 % [facility] 01/16/2024 1:00 PM EDT Melo Pena MD E[facility]OCARDIOLOGY [facility] documented in this encounter Advance Directives Latest Code Status on File Code Status Date Activated Date Inactivated Comments Full Code 01/16/2024 2:56 PM This order reflects the patients wishes and were consensually agreed upon. Question Answer Comments Discussion of Advance Directives occurred with: Patient Care Teams Jacker Feeder Relationship Specialty Start Date End Date Chino Leavitt DO [address] [facility] [address] PCP - General Internal Medicine 01/23/23 documented as of this encounter
--- OUTSIDE RECORDS SUMMARY | 2024-03-18 19:24 | External Medical Summary ---
Author Name Unknown Address Unknown Organization [id number]:[facility] [place] [facility] - [address] [place] [address] Laboratory Report Ordering Provider Test Date Status ROSA SALVADOR 01/12/2024 13:47:56 Final Observation Date Value Abnormality Reference (Units ) Status ABO 01/12/2024 13:47:56 A Final RH 01/12/2024 13:47:56 Positive Final RED BLOOD CELL ANTIBODY SCREEN 01/12/2024 13:47:56 Negative Final SPECIMEN EXPIRATION DATE 01/12/2024 13:47:56 01/19/2024 23:59 Final Performing Location [facility] [facility] - [address] [place] [address]
--- OUTSIDE RECORDS SUMMARY | 2024-03-18 19:24 | External Medical Summary ---
Author Name Unknown Address Unknown Organization [id number]:LAB[facility]ORY [facility] [place] [address] [place] [address] Laboratory Report Ordering Provider Test Date Status STACY VACA 01/17/2024 04:24:00 Final Observation Date Value Abnormality Reference (Units ) Status BUN 01/17/2024 04:24:00 22 Above high normal 6-20 (mg/dL) Final Creatinine 01/17/2024 04:24:00 1.2 0.6-1.2 (mg/dL) Final Glomerular filtration rate/1.73 sq M.predicted [Volume Rate/Area] in Serum, Plasma or Blood by Creatinine-based formula (CKD-EPI) 01/17/2024 04:24:00 66 >=60 (mL/min) Final eGFR is calculated based on the CKD-EPI 2020 equation Sodium 01/17/2024 04:24:00 142 135-146 (m mol/L) Final Potassium 01/17/2024 04:24:00 4.1 3.5-5.1 (m mol/L) Final Cl 01/17/2024 04:24:00 106 98-107 (mm ol/L) Final CO2 01/17/2024 04:24:00 31 22-32 (mmo l/L) Final Anion gap 01/17/2024 04:24:00 5 Below low normal 7-1 5 (mmol/L) Final Glucose 01/17/2024 04:24:00 112 70-120 (mg /dL) Final Calcium 01/17/2024 04:24:00 8.7 8.4-10.2 ( mg/dL) Final Performing Location LABORATORY [facility] [place] - [address] [place] [address]
--- OUTSIDE RECORDS SUMMARY | 2024-03-18 19:24 | External Medical Summary | Summary of Care ---
Author Name Unknown Organization [facility] Address [address] [place] [address] Phone [phone] Care Team Providers Care Soot Blower Name Role Phone Yolie Leavitt DO Primary Care Provider [phone] Reason for Visit * Reason Onset Date Comments Hospital Follow-Up 01/16/2024 Encounter Details Date Type Department Care Team (Late st Contact Info) Description 01/16/2024 Telephone Family Practice [address] [place] [address] [place] [address] Yolie Leavitt DO [address] [place] [address] Hospital Follow-Up Allergies No known [...] 2024. 180 Tablet 3 01/19/20 24 Active Ypyrsujbkkn-Forjmglbf-Rs t C-Mn (GLUCOSAMINE CHONDR 500 COMPLEX) Capsule Take 1 Capsule by mouth every morning. 0 Suspended [place] 3 1000 MG CAPS Take 1 Capsule [...] mRNA, LNP-s, No Pre serve, 2-Dose Series ([employer]) 03/30/2022,06/23/2021,10/02/2020,09/11 COVID-19, MRNA-LNP, 23-24, P F, 30 MCG/0.3 mL, 12 YRS AND ABOVE, IM ([facility] 08/14/2023 Covid-19, Mrna, Lnp-s, Pf, B [...] Encounter - Taylor Carlos OSA - 01/18/2024 10:23 AM EDT Pt scheduled 01.22.23 for HD. Pt aware. * Telephone Encounter - Aaliyah Meade OSA - 01/16/2024 5:04 PM EDT Patient Name: JOSIAS DE LOS SANTOS([id number]) Sex: Male : 1950 PCP: YOLIE LEAVTIT Center: [facility] [place] Types of orders made on 01/16/2024: Blood Bank - Prepare Product, Code Status, Communication, Consult, Diet, EKG, Echocardiology, IP Admission, IP Post Discharge , IP Transfer, Lab, Medical Imaging, Medications, Nursing, Procedures, Referral, Respiratory Order Date:01/16/2024 Ordering User:ALMA VARGAS [[id number]] Attending Provider:Melo Pena MD [[id number]] Authorizing Provider: Alma Vargas DO [[id number]] Department:[facility] WAITING [facility][[id number]] Order Specific Information Order: RETURN APPT [CUSTOM: [id number]] Order #: [id number]: [id number] Priority: Routine Class: Nursing Unit Department (Single Entry) -> Family Practice Appt Needed Within: (Specify # of Days, Weeks, Months) -> 1 Wk Provider -> YOLIE LEAVITT Released on: 01/16/2024 3:02 PM Priority: Routine Z1 Class: Nursing Unit Department (Single Entry) -> Family Practice Appt Needed Within: (Specify # of Days, Weeks, Months) -> 1 Wk Provider -> YOLIE LEAVITT Released on: 01/16/2024 3:02 PM documented in this encounter Plan of Treatment Upcoming Encounters Date Type Department Care Team (Late st Contact Info) Description 01/23/2024 2:40 PM EDT Pharmacy Family Practice [address] [facility] 293 [place] [address] College, Pharmacist [address] [address] 01/23/2024 3:00 PM EDT Office Visit Family Practice [address] [facility] 293 [facility] [phone] Yolie Leavitt, [address] [place] [address] 01/24/2024 3:00 PM EDT Office Visit [facility], [facility] [address] [facility] [address] 01/31/2024 11:30 AM EDT Office Visit Cardiology, [facility] 132 [facility] [address] Melo Pena MD [address] [place] [address] 03/04/2024 2:30 PM EDT Laboratory Laboratory, [facility] 132 [facility] [place] [id number] Андрей Ozuna Rust 132 [facility] [place] [address] 03/04/2024 3:00 PM EDT Office Visit Cardiology, [facility] 132 [facility] [place] [address] Adelina Riddle CRNP 132 [facility] [place] [address] 03/15/2024 1:00 PM EDT Office Visit Family Practice [address] [place] [address] 293 [facility] [address] Yolie Leavitt, 293 [place] [address] 04/03/2024 7:15 AM EDT Cardiac Studies Cardiac Studies, [facility] 132 [facility] [place] [address] 04/17/2024 12:30 PM EDT Office Visit Dermatology [facility] [address] [place] [address] Trisha Pulido PA-C [address] [place] [address] 11/18/2024 1:00 PM EDT PulmDiagnostic Pulmonary Function Lab [place] [address] [place] [address] [address] [place], [address] 132 [facility] [place] [address] 11/18/2024 1:40 PM EDT Office Visit Pulmonary Medicine [place] [address] [phone] Wander Gonzalez MD [address] [place] [address] [address] Health Maintenance Due Date Last Done Comments [...] this encounter Medical Devices Implanted Type Area Erector Operator Device Identifier Shelf Expiration Date Model / Serial / Lot Cath Thermodilution 6fr - [id number] Implanted:Qty: 1 on 11/04/2021 by Kevin Espino DO at [facility] [employer] [id number] 10/13/2023 [id number] / / [id number] Valve Transcath Resilia 29mm - [id number] Implanted:Qty: 1 on 01/16/2024 by Melo Pena MD at [facility] [employer] [id number] / / documented as of this encounter Advance Directives Latest Code Status on File Code Status Date Activated Date Inactivated Comments Full Code 01/16/2024 2:56 PM This order reflects the patients wishes and were consensually agreed upon. Question Answer Comments Discussion of Advance Directives occurred with: Patient Care Teams Soot Blower Relationship Specialty Start Date End Date Yolie Leavitt DO [address] [place] [address] PCP - General Internal Medicine 01/23/23 documented as of this encounter
--- OUTSIDE RECORDS SUMMARY | 2024-03-18 19:24 | External Medical Summary ---
Author Name Unknown Address Unknown Organization K01:[facility] [place] [address] [place] [address] Laboratory Report Ordering Provider Test Date Status ROSA SALVADOR 01/12/2024 13:47:56 Final Warfarin Therapy
INR: 2 .0-3.0 conventional anticoagulation
INR: 2.5- 3.5 high intensity anticoagulation Observation Date Value Abnormality Reference (Units ) Status PT 01/12/2024 13:47:56 16.3 Above high normal 11 .6-15.2 (seconds) Final INR 01/12/2024 13:47:56 1.3 Above high normal 0. 8-1.2 Final Performing Location [facility] [place] [address] [place] [address]
--- OUTSIDE RECORDS SUMMARY | 2024-03-18 19:24 | External Medical Summary | Summary of Care ---
Author Name Unknown Organization [facility] Address [address] [place] [address] Phone [phone] Care Team Providers Care Cushion Mat Maker Name Role Phone Chino Leavitt DO Primary Care Provider [phone] Encounter Details Date Type Department Care Team (Late st Contact Info) Description 01/17/2024 Population Health External Data Unspecified Department Allergies No known active allergiesdocumented as of this encounter (statuses as of 01/17/2024) Medications Medication Sig Dispensed Refills Start Date End Date Status Hriigbudrgs-Cektznbjw-St t C-Mn (GLUCOSAMINE CHONDR 500 COMPLEX) Capsule Take 1 Capsule by mouth every morning. 0 Suspended [place] 3 1000 MG CAPS Take 1 Capsule [...] RESTORATIVE CARE),Longstanding persistent atrial fibrillation (HCC) Take 1.5 Tablets [...] 5 MG Oral Tablet (Zaroxolyn)Indications:C entrilobular emphysema ([facility]),Pulmonary hypertension ([facility]),Diaphragm dysfunction Take 1 Tablet by mouth as [...] valve replacement ) 01/17/2024 Iron deficiency anemia joel shipman to inadequate dietary iron intake 04/21/2023 Persistent [...] mRNA, LNP-s, No Pre serve, 2-Dose Series ([employer]) 03/30/2022,06/23/2021,10/02/2020,09/11 COVID-19, MRNA-LNP, 23-24, P F, 30 MCG/0.3 mL, 12 YRS AND ABOVE, IM (BioSTL-Comirnaty) 08/14/2023 Covid-19, Mrna, Lnp-s, Pf, B ivalent, 30 Mcg, IM, 12 yrs and above ([employer]) 06/28/2022 Influenza, Whole Virus 07/12/1999 Pneumococcal [...] 3:00 PM EDT Office Visit Cardiology, [facility] 132 [facility] [place] [address] Adelina Riddle CRNP 132 [facility] [place] [address] 03/04/2024 2:30 PM EDT Laboratory Laboratory, [facility] 132 [facility] [place] [address] [facility] Андрей [facility] 132 [facility] [place] [address] 03/04/2024 3:00 PM EDT Office Visit Cardiology, [facility] 132 [facility] [place] [address] Adelina Riddle CRNP [address] [place] [address] 03/15/2024 1:00 PM EDT Office Visit Family Practice [address] [place] [address] 293 [place] [address] Chino Leavitt, DO [address] [place] [address] 04/03/2024 7:15 AM EDT Cardiac Studies Cardiac Studies, [facility] 132 [facility] [place] [address] 04/17/2024 12:30 PM EDT Office Visit Dermatology [facility] [place] [address] [facility] [address] Trisha Pulido PA-C [address] [facility] [address] 11/18/2024 1:00 PM EDT PulmDiagnostic Pulmonary Function Lab [place] [address] [place] [address] [place], [address] 132 [facility] [place] [address] 11/18/2024 1:40 PM EDT Office Visit Pulmonary Medicine [place] [address] [place] [address] [phone] Wander Gonzalez MD [address] [facility] [place] [address] Health Maintenance Due Date Last Done Comments [...] this encounter Medical Devices Implanted Type Area Light Rail Signal Technician Device Identifier Shelf Expiration Date Model / Serial / Lot Cath Thermodilution 6fr - [id number] Implanted:Qty: 1 on 11/04/2021 by Kevin Espino DO at [facility] [employer] [id number] 10/13/2023 [id number] / / [id number] Valve Transcath Resilia 29mm - [id number] Implanted:Qty: 1 on 01/16/2024 by Melo Pena MD at [facility] [employer] [id number] / / documented as of this encounter Advance Directives Latest Code Status on File Code Status Date Activated Date Inactivated Comments Full Code 01/16/2024 2:56 PM This order reflects the patients wishes and were consensually agreed upon. Question Answer Comments Discussion of Advance Directives occurred with: Patient Care Teams Cushion Mat Maker Relationship Specialty Start Date End Date Chino Leavitt DO [address] [place] [facility] [place] [address] PCP - General Internal Medicine 01/23/23 documented as of this encounter
[2024-03-18] MEDS: HYDROCODONE/ACETAMOPHEN 5/325MG TAB PO PRN (22:15)
[2024-03-18] MEDS: HYDROmorphone INJ 0.5 MG/0.5 ML SYR IV PRN (22:15)
[2024-03-18] MEDS: TAMSULOSIN HCL 0.4 MG CAP PO SCH (22:15)
[2024-03-18] MEDS: DULoxetine HCL 60 MG CAP PO SCH (22:15)
[2024-03-18] MEDS: APIXABAN 5 MG TABLET PO SCH (22:16)
[2024-03-18] MEDS: DAPTOmycin 375 MG in SYRINGE 0 ML IV SCH (23:26)
[2024-03-19] MEDS: oxyCODONE HCL IR 5 MG TAB (IMMEDIATE RELEASE) PO PRN (00:52)
[2024-03-19] MEDS: HYDROmorphone INJ 1 MG/ML SYRINGE IV PRN ×2 (00:52→10:29)
[2024-03-19] MEDS: ACETAMINOPHEN 1,000 MG/100 ML VIAL IV STA (05:56)
[2024-03-19 06:31] LABS: Basophils # (auto) 0.11 K/uL (0.00-0.20); Basophils % (auto) 0.8 %; Eosinophils # (auto) 0.32 K/uL (0.00-0.50); Eosinophils % (auto) 2.2 %; Hematocrit (blood only) 43.5 % (42.0-52.0); Immature Granulocytes # (auto) 0.53 K/uL (0.01-0.20); Immature Granulocytes % (auto) 3.7 %; Lymphocytes # (auto) 0.04 K/uL (1.20-3.40); Lymphocytes % (auto) 0.3 %; Mean Corpuscular Hemoglobin 30.2 pg (25.0-34.0); Mean Corpuscular Hgb Conc 32.2 g/dL (32.0-36.0); Monocytes % (auto) 17.3 %; Neutrophils # (auto) 10.92 K/uL (1.40-6.50); Neutrophils % (auto) 75.7 %; Platelet Count 206 K/uL (130-400); RDW Coefficient of Variation 13.9 % (11.5-14.5); RDW Standard Deviation 47.7 fL (36.4-46.3); Red Blood Count 4.63 M/uL (4.70-6.10); White Blood Count 14.42 K/ul (4.8-10.8)
--- OUTSIDE RECORDS SUMMARY | 2024-03-19 06:58 | External Medical Summary | Summary of Care ---
Author Name Unknown Organization [facility] Address [address] [place] [address] Phone [phone] Care Team Providers Care Audit Control Clerk Name Role Phone Chino Leavitt DO Primary Care Provider [phone] Reason for Visit * Reason Onset Date Comments Advice 03/18/202403/18 Encounter Details Date Type Department Care Team (Late st Contact Info) Description 03/18/2024 Telephone Family Practice [address], [place] [address] [place] [address] Chino Leavitt DO [address] [place] [address] Advice (03/18) Allergies No known active allergiesdocumented as of this encounter (statuses as of 03/18/2024) Medications Medication Sig Dispensed Refills Start Date End Date Status Hijwftxbvey-Udhamboms-Ofh C-Mn (GLUCOSAMINE CHONDR 500 COMPLEX) Capsule Take 1 Capsule by mouth every morning. Active [place] 3 1000 MG CAPS Take 1 Capsule [...] Tartrate ER 6.25 MG Oral Tablet Extended ReleaseIndications:Primar y insomnia Take 1 Tablet by mouth at bedtime as needed for Sleep. 30 Tablet 4 Active Cefdinir 300 MG Oral Capsule (Omnicef)Indications:Cell ulitis of groin Take 1 Capsule by mouth in the morning and 1 Capsule before bedtime. Do all this for 10 days. 20 Capsule 4 03/25/20 24 Active Amoxicillin 500 MG Oral Capsule (Amoxil)Indications:Cellu litis of groin Take 1 Capsule by mouth in the morning and 1 Capsule at noon and 1 Capsule before bedtime. Do all this for 10 days. 30 Capsule 4 03/25/20 24 Active documented as of this encounter (statuses as of 03/18/2024) Active Problems Problem Noted Date Diagnosed Date [...] as of this encounter (statuses as of 03/18/2024) Resolved Problems Problem Noted Date Diagnosed Date Resolved Date COPD with emphysema 05/26/2022 03/03/20 23 Anemia 05/26/2022 04/21/2023 documented as of this encounter (statuses as of 03/18/2024) Immunizations Name Administration Dates Next Due COVID-19 mRNA, LNP-s, No Pre serve, 2-Dose Series ([facility]) 03/30/2022,06/23/2021,10/02/2020,09/11 COVID-19, MRNA-LNP, 23-24, P F, 30 MCG/0.3 mL, 12 YRS AND ABOVE, IM (PFIZER-Comirnaty) 03/15/2024,08/14/2023 Covid-19, Mrna, Lnp-s, Pf, B ivalent, [...] Telephone Encounter - Aaliyah Sanchez LPN - 03/18/2024 10:44 AM EDT Patient is aware and will comply. Thank you * Telephone Encounter - Aaliyah Sanchez LPN - 03/18/2024 10:35 AM EDT Called, left message for patient to return call. Thank you * Telephone Encounter - Ryanne Duncan DO - 03/18/2024 10:31 AM EDT Would advise ED for further evaluation and imaging/treatment. * Telephone Encounter - Veena Krause LPN - 03/18/2024 10:20 AM EDT Spoke to patient. States he is worse and got rocephin Monday. OJ reported that if he was worse Dr Leavitt advised that he would be admitted for IV antibiotics. I informed patient that Dr Leavitt is notin the office but I would send a message to clinic with his request. Spoke to Aaliyah to confirm all this. Patient will wait for a call back with further instructions * Telephone Encounter - Aaliyah Sanchez LPN - 03/18/2024 9:58 AM EDT Will forward to dermatology, noted message from Trisha Pulido Pa-C. Thank you * Telephone Encounter - Taylor Alcazar OSA - 03/18/2024 9:41 AM EDT Rash is worse Please advise documented in this encounter Plan of Treatment Upcoming Encounters Date Type Department Care Team (Late st Contact Info) Description 03/22/2024 10:40 AM EDT Office Visit Family Practice [address] [place] [address] [address] [place] [address] Chino Leavitt, [address] [place] [address] 04/03/2024 7:15 AM EDT Cardiac Studies Cardiac Studies, [facility] 132 [facility] [place] [address] 04/23/2024 1:50 PM EDT Office Visit Dermatology [facility] [place] [address] [facility] [address] Trisha Pulido PA-C 6[address] [facility] [place] [address] 05/16/2024 12:00 PM EDT Hospital Encounter [facility], Cardiac Recovery Suite Waiting Unit, [address] [facility] [address] Melo Pena MD [address] [place] [address] 05/16/2024 12:00 PM EDT - 05/16/2024 3:00 PM EDT Surgery [facility], Cardiac Recovery Suite Waiting Unit, [address] [place] [address] Melo Pena MD [address] [place] [address] PERCUTANEOUS CLOSURE LEFT ATRIAL APPENDAGE IMPLANT 05/16/2024 12:00 PM EDT Office Visit Cardiology [facility] [address] [place] [address] [facility] [address] [place] [address] 05/28/2024 12:15 PM EDT Office Visit Cardiology, [facility] 132 [facility] [place] [address] Kalpana Calloway, DO 400 [facility] [place] [address] 09/05/2024 2:00 PM EST Office Visit Cardiology, [facility] [place] [address] Avni Pruitt PA-C 132 [facility] [place] [address] 11/18/2024 1:00 PM EDT PulmDiagnostic Pulmonary Function Lab [place] [address] [place] [address] [address] [place], [address] 132 [facility] [place] [address] 11/18/2024 1:40 PM EDT Office Visit Pulmonary Medicine [place] [address] [place] [phone] Wander Gonzalez MD [address] [place] [address] [address] Scheduled Procedures Name Priority Associated Diagnoses Date/Ti me PERCUTANEOUS CLOSURE LEFT ATRIAL APPENDAGE IMPLANT Permanent atrial fibrillation (HCC) 05/16/2024 12:00 PM EDT Health Maintenance Due Date Last Done Comments Influenza Vaccine (FLU shot) (#1) 2024 05/29/2023, [...] this encounter Medical Devices Implanted Type Area Electrical Construction Project Manager Device Identifier Shelf Expiration Date Model / Serial / Lot Cath Thermodilution 6fr - [id number] Implanted:Qty: 1 on 11/04/2021 by Kevin Espino DO at [facility] [employer] [place] [id number] 10/13/2023 [id number] / / [id number] Valve Transcath Resilia 29mm - [id number] Implanted:Qty: 1 on 01/16/2024 by Melo Pena MD at [facility] [employer] [id number] 06/19/2025 [id number] / / documented as of this encounter [...] patient or by statute hierarchy) Care Teams Audit Control Clerk Relationship Specialty Start Date End Date Chino Leavitt DO 293 [place] [address] PCP - General Internal Medicine 03/14/24 documented as of this encounter
[2024-03-19 07:03] LABS: BUN Creatinine Ratio 28.7 (10-20); Calcium 9.6 mg/dl (8.6-10.3); Creatinine Clr Calc Pharmacy 61.1 ml/min; Est GFR (African American) 58.6 ml/min; Est GFR (Non-African American) 50.5 ml/min; Potassium 3.2 mmol/L (3.5-5.1)
--- NOTE | 2024-03-19 08:09 | Urology Progress Note ---
Date of Service March 19, 2024 Assessment & Plan (1) Wound of groin: (2) Cellulitis: (3) Scrotal swelling: Plan: 73-year-old male with 3-4 weeks of progressive erythema of the scrotum, bilateral inguinal folds and suprapubic area. No evidence of underlying abscess on CT scan or ultrasound. The skin in this area appears extremely irritated with some breakdown of the epidermis, with superficial sloughing in the pressure areas (border pannus). Patient afebrile, hemodynamically stable Labs reviewedcreatinine 1.36, WBC downtrending (14.42) Blood cultures are pending Wound culture of scrotum showing gram-negative bacilli Currently on IV ceftriaxone and daptomycin Continue broad-spectrum antibiotics, narrow based on culture data Pain is adequately controlled with current regimen ID consult and wound care nursing consult are pending Continue supportive care, pain management and medical management per hospital medicine service will follow Admission and Anticipated Discharge Date Admission Date: March 18, 2024 Subjective Patient seen and examined at bedside Reports he did not sleep much overnight, but did get some rest earlier this morning Reports ongoing scrotal/groin discomfort, notes some improvement with PO and IV analgesia Voiding spontaneously Denies fever or chills Review of Systems Constitutional: as per Subjective / HPI Genitourinary: + as per Subjective / HPI Physical Exam Constitutional: no acute distress Respiratory: no respiratory distress and no labored breathing Musculoskeletal: Head/Neck/Chest: normocephalic Neurologic: moves all extremities and awake Psychiatric: Orientation: alert and oriented x 3 Genitourinary: There is significant erythema under his pannus, suprapubic region and bilateral inguinal folds as well as scrotum. Skin appears macerated/ulcerated with superficial sloughing, there is weeping within the inguinal folds but no significant drainage. Several areas are scabbed in comparison to yesterday (under pannus, suprapubic area). Penis is buried within the scrotum. There is some edema of the scrotum, no crepitus or fluctuance appreciated. No necrotic tissue appreciated. Results & Data Vital Signs (Past 12 Hours) Vital Signs Temp Pulse Pulse Pulse Resp BP Pulse Ox 03/19/24 08:07 36.5 C 70 18 116/72 90 03/19/24 04:28 36.4 C L 74 18 126/73 92 03/18/24 23:39 03/18/24 23:23 03/18/24 22:05 82 03/18/24 21:45 03/18/24 21:45 36.5 C 77 20 134/74 92 03/18/24 21:04 82 18 152/84 H 98 03/18/24 20:46 89 O2 Del Method 03/19/24 08:07 Room Air 03/19/24 04:28 Room Air, CPAP 03/18/24 23:39 Room Air 03/18/24 23:23 Room Air 03/18/24 22:05 03/18/24 21:45 Room Air, BiPAP 03/18/24 21:45 Room Air 03/18/24 21:04 Room Air 03/18/24 20:46 PG Care Time/CCT Total # of Minutes Spent Total Time Spent with Patient: Total time spent is greater than 50% in coordination of care (as documented) at patient's floor/unit and/or counseling patient: Coding Level of Care Code 10204 SUB INP/OBS CARE 09/28MIN Diagnoses Wound of groin S31.109A Cellulitis L03.90 Scrotal swelling N50.89
[2024-03-19] MEDS: ADVANCED PROBIOTIC 625 MG CAPSULE PO SCH (08:40)
[2024-03-19] MEDS: FERROUS SULFATE 325 MG TAB PO SCH (08:40)
[2024-03-19] MEDS: POTASSIUM CHLORIDE 10 MEQ TABCR PO SCH (08:48)
[2024-03-19] MEDS: POLYETHYLENE (MIRALAX) 17 GM PACK PO SCH (08:48)
[2024-03-19] MEDS ORDERED: ADVANCED PROBIOTIC 625 MG CAPSULE PO SCH (09:00)
[2024-03-19] MEDS ORDERED: HYDROmorphone INJ 1 MG/ML SYRINGE IV PRN (13:02)
--- NOTE | 2024-03-19 13:10 | Hospitalist Progress Note ---
Date of Service March 19, 2024 Assessment & Plan (1) Cellulitis of scrotum: (2) Diaphragmatic paralysis: (3) Cor pulmonale: (4) Atrial fibrillation: (5) Wound of groin: Plan Patient with severe multi organism bacterial cellulitis of the inguinal area and scrotum. Slightly improved based on markings outlined at the time of admission. He remains critically ill with severe pain requiring IV medications and IV antibiotics as well as regular monitoring to ensure improvement along with specialty consultation. Continue current antibiotics Continue to follow cultures Adjust pain medications. Will schedule Tylenol and MS Contin. As needed Dilaudid IV and p.o. Wound care Patient is been evaluated by urology, do not feel that this is any type of foreign years gangrene that would need surgical intervention and will continue to monitor Continue other medications as prescribed. Admission and Anticipated Discharge Date Admission Date: March 18, 2024 Subjective Patient is getting minimal relief with pain meds. Still significantly painful. Feels that it is getting slightly better Physical Exam Physical Exam: Constitutional: Alert HEENT: Mucous membranes moist. Lungs: Clear to auscultation, decreased, no wheezes rales or rhonchi CV: S1-S2, regular Abdomen: Soft, nontender, nondistended Extremities: No significant edema : Entire scrotum is swollen, inflamed, red, purulent oozing in inguinal area and under abdominal folds. Evidence of eschar formation and serous drainage Neuro: No focal deficits Psych: Cooperative, normal mood Results & Data Results & Data Vital Signs (Past 12 Hours) Vital Signs Temp Pulse Pulse Resp BP Pulse Ox O2 Del Method 03/19/24 08:07 36.5 C 70 18 116/72 90 Room Air 03/19/24 04:28 36.4 C L 74 18 126/73 92 Room Air, CPAP Diagnostic Findings Reviewed imaging, laboratory and diagnostic studies. Pertinent findings as below. WBCs 14.4, improved Scrotal ultrasound shows hydrocele which is chronic
[2024-03-19] MEDS: ACETAMINOPHEN 500 MG TAB PO SCH (13:28)
[2024-03-19] MEDS: MoRPHine SULFATE CR 15 MG TABCR PO ONE (13:29)
[2024-03-19] MEDS: HYDROmorphone INJ 2 MG/ML SYR/VIAL IV PRN (15:07)
[2024-03-19] MEDS: cefTRIAXone SODIUM 2,000 MG/50 ML BAG IV SCH (17:09)
[2024-03-19] MEDS: HYDROmorphone HCL 4 MG TAB PO PRN (19:52)
[2024-03-19] MEDS: MoRPHine SULFATE CR 15 MG TABCR PO SCH (20:32)
[2024-03-19] MEDS: DOCUSATE SODIUM/SENNA 50/8.6MG TAB PO SCH (22:57)
[2024-03-20 06:28] LABS: Hematocrit (blood only) 42.7 % (42.0-52.0); Hemoglobin 13.8 g/dl (14.0-18.0); Mean Corpuscular Hemoglobin 30.1 pg (25.0-34.0); Mean Corpuscular Hgb Conc 32.3 g/dL (32.0-36.0); Mean Corpuscular Volume 93.2 fL (80.0-100.0); Mean Platelet Volume 9.9 fL (9.4-12.4); Platelet Count 231 K/uL (130-400); RDW Coefficient of Variation 13.8 % (11.5-14.5); RDW Standard Deviation 47.3 fL (36.4-46.3); Red Blood Count 4.58 M/uL (4.70-6.10); White Blood Count 10.38 K/ul (4.8-10.8)
[2024-03-20 06:49] LABS: BUN Creatinine Ratio 34.4 (10-20); Calcium 9.5 mg/dl (8.6-10.3); Creatinine Clr Calc Pharmacy 68.1 ml/min; Est GFR (African American) 66.8 ml/min; Est GFR (Non-African American) 57.6 ml/min; Potassium 3.5 mmol/L (3.5-5.1)
[2024-03-20 07:13] LABS: Estimated Average Glucose 123 mg/dl; Hemoglobin A1C 5.9 % (4.5-5.6)
--- NOTE | 2024-03-20 10:30 | Urology Progress Note ---
Date of Service March 20, 2024 Assessment & Plan (1) Wound of groin: (2) Cellulitis of scrotum: (3) Scrotal swelling: Plan: 73-year-old male with 3-4 weeks of progressive erythema of the scrotum, bilateral inguinal folds and suprapubic area. No evidence of underlying abscess on CT scan or ultrasound. The skin in this area appears extremely irritated with some breakdown of the epidermis, with superficial sloughing in the pressure areas. Patient afebrile, hemodynamically stable Labs reviewedcreatinine 1.22, WBC downtrending (10.38) Blood cultures showing no growth x 24 hours Wound culture of scrotum showing gram-negative bacilli Currently on IV ceftriaxone and daptomycin Continue broad-spectrum antibiotics, narrow based on culture data Pain is adequately controlled with current regimen Continue with wound care and antibiotics Continue supportive care, pain management and medical management per hospital medicine service will follow peripherally, please contact our service with any questions or changes to clinical status Admission and Anticipated Discharge Date Admission Date: March 18, 2024 Subjective Patient seen and examined at bedside He reports he slept well Continues to have pain in scrotum and groin, but overall feels that pain has improved since yesterday Voiding without difficulty Denies fever or chills Review of Systems Constitutional: as per Subjective / HPI Genitourinary: + as per Subjective / HPI Physical Exam Constitutional: no acute distress Respiratory: no respiratory distress and no labored breathing Musculoskeletal: Head/Neck/Chest: normocephalic Neurologic: moves all extremities and awake Psychiatric: Orientation: alert and oriented x 3 Genitourinary: There is significant erythema under his pannus, suprapubic region and bilateral inguinal folds as well as scrotum. Area of erythema has receded from demarcations. There is breakdown of the epidermis with superficial sloughing under pannus and bilateral inguinal folds which are moist, no significant drainage. There is some crusting over suprapubic area and scrotum. No crepitus, fluctuance or necrotic tissue noted. Results & Data Vital Signs (Past 12 Hours) Vital Signs Temp Pulse Resp BP Pulse Ox O2 Del Method 03/20/24 07:31 36.3 C L 65 18 144/84 H 91 Room Air 03/20/24 01:00 Room Air, CPAP 07/16/24 23:00 36.0 C L 78 20 134/74 93 BiPAP PG Care Time/CCT Total # of Minutes Spent Total Time Spent with Patient: Total time spent is greater than 50% in coordination of care (as documented) at patient's floor/unit and/or counseling patient: Coding Level of Care Code 43206 SUB INP/OBS CARE 09/28MIN Diagnoses Wound of groin S31.109A Cellulitis of scrotum N49.2 Scrotal swelling N50.89
--- NOTE | 2024-03-20 15:29 | Infectious Disease Consult ---
Date of Service March 20, 2024 Telehealth Information I performed this visit using a real-time telehealth connection between my location and the patients location ([facility]). After connecting through interactive tele-video, patient was identified by name and date of and/or wristband check.Patient (or authorized healthcare treasury representative) was informed that this was a telemedicine visit and it was being conducted confidentially over secure lines. My office door was closed and no one else was present in the room with me.Patient (or authorized healthcare treasury representative) provided consent to proceed with the visit, expressed an understanding of privacy and security of the telemedicine visit, and gave permission to have a hospital treasury representative in the room in order to assist with the visit and to conduct portions of the visit, as needed. I informed the patient (or authorized healthcare treasury representative) that I reviewed their record and presented the opportunity for them to ask any questions regarding the visit today. The patient agreed to participate. Assessment & Plan (1) Cellulitis of scrotum: Plan: Assessment: Cellulitis of scrotum and perineal area Near morbid obesity Recommendations: - Stop CTX and Daptomycin - Start linezolid 600 mg po bid and ciprofloxacin 500 mg po bid for total 14 days from 03/19 to 04/01 - I have recommended probiotic while on abx therapy - Please, provide a list of food items to avoid while the patient is on linezolid - Please, discuss w/ the patients PCP about possible drug-drug interaction between ciprofloxacin and eliquis - Continue wound care to promote healing More than 50% of [id number] visit was spent counseling and coordinating care pertaining to the patient's infection diagnosis, additional work-up, and treatment option(s) as well as potential adverse events of the treatment. 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 The patient failed to improve on amoxicillin (10 days) and cefdinir (from 03/15 to this admission) per record. No fever but low temperature was noted w/ leukocytosis. CT showed subcutaneous fat stranding in scrotum but no obvious abscess. The patient is currently on daptomycin and ceftriaxone, feeling better overall. [place] and has been sweating a lot which might have irritated his skin. Denies f/c, n/v, abd pain, diarrhea, sob, coughing, cp, or urinary symptoms. Allergies Allergy/AdvReac Type Severity Reaction Status Date / Time No Known Allergies Allergy Unknown Verified 03/18/24 19:38 Home Medications Medication Instructions Recorded Confirmed Type glucosamine [id number] 1 tab PO QAM 02/19/19 03/18/24 History ellis 1,500 mg-400 unit-100 mg tablet (Osteo Bi-Flex (5-Loxin)) mmmrbhsu-wzw-eumch acid 0.4 1 tab PO QAM 02/19/19 03/18/24 History mg-lycopene 300 mcg-lutein 250 mcg tablet (Centrum Silver) ibuprofen 200 mg tablet 400 mg PO Q6H PRN FEVER/PAIN 08/31/21 03/18/24 History Mitoq 1 tab PO QAM 11/30/21 03/18/24 History omega 1-xkl-len-fish oil 60 mg-90 1 cap PO QAM 02/24/22 03/18/24 History mg-500 mg capsule (Fish Oil) ascorbic acid (vitamin C) 250 mg 250 mg PO QAM 09/15/22 03/18/24 History tablet (Vitamin C) torsemide 20 mg tablet 40 mg PO QAM 09/15/22 03/18/24 History apixaban 5 mg tablet (Eliquis) 5 mg PO BID 90 days #180 tabs 10/04/22 03/18/24 Rx cyanocobalamin (vitamin B-12) 5,000 mcg PO QAM 10/04/22 03/18/24 History 1,000 mcg tablet (Vitamin B-12) tamsulosin 0.4 mg capsule 0.4 mg PO HS #90 caps 12/19/22 03/18/24 Rx betamethasone dipropionate 0.05 % 1 applic topical DAILY PRN skin 12/20/22 03/18/24 Rx topical cream irritation #45 grams atorvastatin 40 mg tablet 40 mg PO HS 09/19/23 03/18/24 History ferrous sulfate 325 mg (65 mg 325 mg PO QAM 09/19/23 03/18/24 History iron) tablet (iron) peg 3350-sod sulf,nqagr-yyk-jqj See Rx Instructions PO .COMPLEX #2 09/26/23 11/29/23 Rx 178.7-7.3-0.5-1.12-0.9 gram oral mL soln (Suflave) metoprolol succinate 25 mg 25 mg PO DAILY 11/29/23 03/18/24 History tablet,extended release 24 hr spironolactone 25 mg tablet 25 mg PO DAILY 11/29/23 03/18/24 History amoxicillin 500 mg capsule 500 mg PO TID 03/18/24 03/18/24 History duloxetine 30 mg capsule,delayed 60 mg PO HS 03/18/24 03/18/24 History release potassium chloride 10 mEq 10 meq PO QAM 03/18/24 03/18/24 History tablet,extended release(part/cryst) Patient History Medical History Pulmonary hypertension mild per 05/2023 echo: PASP 46 mmHg Iron deficiency anemia last infusion several months ago Cor pulmonale follows with Darrell Bai pul and [facility] cardio CAD (coronary artery disease) non-occlusive per [facility] EMR Mitral regurgitation Echo 05/2023: Severe MR Diaphragm paralysis Follows with Darrell Bai, diagnosed with paralyzed diaphragm, pt states he uses a BIPAP at night History of COVID-19 11/2021- was asymptomatic Chronic anemia Orthopnea unable to lay flat per [facility] Bai pulm-per pt can do so with BiPAP-required semi-recumbent position for previous hernia repair Atrial fibrillation Carotid artery stenosis <50% stenosis to bilateral ICAs per 2017 carotid doppler BPH (benign prostatic hyperplasia) Apnea, sleep BIPAP Surgical History H/O umbilical hernia repair Open Repair Incarcerated Umbilical Hernia (09/19/22): MAC at [facility]-required semi-recumbent position per records S/P cystoscopy with ureteral stent placement 12/2021 Hx of cardiac cath 3/3/22 ([facility]) > mild, non-obstructive CAD. Moderate aortic stenosis based on invasive AV assessment (calculated KATHRYN 1.5cm2, MG 35mmhg)--Patient reports this was done while he was awake d/t respiratory concerns. 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 Other No family history of adverse response to anesthesia Denies family history of Ovarian cancer Prostate cancer Myocardial infarction Lung cancer Colorectal cancer Social History Smoking Status: Never smoker Tobacco Type: Cigarettes Age Started Using Tobacco: 14; Age Quit Using Tobacco: 38; packs per day: 1.5; Second Hand Exposure: No; Do You Dip or Chew Tobacco: No; Hx Alcohol Use: Yes Alcohol type: beer, wine and hard liquor Alcohol type Comment: 1-2 drinks weekly, "if that" Hx Substance Use: Yes Preferred Language: Ukrainian Communication Ability: Effective Visual Impairment: No Limitations Hearing Ability: Normal Melter Operator Required: No Beliefs That Will Affect Care: None marital status: Life Partner Current Living Situation: Significant Other current occupational status: retired How many Children do You have: 1 Other Information That Helps Us Care for You: No Feels Safe at Home: Yes Safety Concerns: Feels Safe At This Time Childhood Exposure to Second-Hand Smoke: Yes Diet: regular caffeine: Yes (1 cup of coffee daily ) Dental Care, Regularly: Yes Physical Activity Frequency: 3-4 Times per Week Physical Activity Frequency Comment: walks Seatbelt Use: always Sunscreen Use: No Assistive Devices: BiPap and Glasses Review of Systems as HPI and all others negative Physical Exam General: no acute distress Lungs: breathing comfortably in bed on room air Neuro: AOx3, conversant Skin: superficial linear ulcer underneath the abd pannus and mostly maceration in b/l inguinal areas w/ surrounding red/pinkish rash involving the scrotum: the rash on R groin area significantly receded from the demarcation Results & Data Vital Signs (Past 12 Hours) Vital Signs Temp Pulse Resp BP Pulse Ox O2 Del Method 03/20/24 11:10 36.4 C L 78 18 133/79 92 Room Air 03/20/24 07:31 36.3 C L 65 18 144/84 H 91 Room Air Laboratory Results Labs WBC 16.7K ->-> 10.38K H 13.8 Plt 231K Cr 1.22 (CrCl 68.1) LFT unremarkable LA 2.1 -> 1.4 CRP 25.76 QT/QTc: 426/368 ms (03/04/24) CT abdomen pelvis: Partially visualized subcutaneous fat stranding in the visualized portion of the scrotum, qkrqu-lf-[id number] is highly limited. No subcutaneous emphysema or drainable fluid collection is seen Scrotal ultrasound: 1. No acute sonographic abnormality is seen involving the testes or scrotum. 2. Large right-sided hydrocele. This was also seen in 2019. 3. Additional findings as above. Diagnostic Findings Scrotum swab cx (03/11/24): E coli (R to amp, cefaz, cefox, bact; I to amp/sulb; S to rest), KPN (ovalle S), Enterococcus (S to amp, vanco) Blood cx (03/18): NGTD Surf wound cx scrotum (03/18): GNB Medications Administered Daptomycin and ceftriaxone
--- NOTE | 2024-03-20 16:35 | Hospitalist Progress Note ---
Date of Service March 20, 2024 Assessment & Plan (1) Cellulitis of scrotum: Plan: started with progressively worsening rash with wounds/skin maceration in the scrotum and bilateral inguinal area for about 4 weeks duration has been using local antifungal and has had 2 courses of antibiotic starting with amoxicillin and cefdinir and also using lidocaine spray to decrease burning admitted on 15th of this month with worsening cellulitis without any fever and no chills and no white count has been on intravenous ceftriaxone and daptomycin since admission appreciate ID input and recommendation culture is growing gram-negative bacilli antibiotics have been changed to oral Cipro and linezolid appreciate wound care input and recommendation (2) Diaphragmatic paralysis: Plan: chronic and remains stable (3) Cor pulmonale: Plan: no acute symptoms and no acute fluid overload (4) Atrial fibrillation: Plan: rate is controlled continue with Eliquis for anticoagulation (5) Wound of groin: Plan: Patient is been evaluated by urology, do not feel that this is any type of foreign years gangrene that would need surgical intervention and will continue to monitor Continue other medications as prescribed. Plan other significant medical condition as mentioned in H&P remain stable Admission and Anticipated Discharge Date Admission Date: March 18, 2024 Subjective 03/20/2024 The patient was seen and examined in medical telemetry unit His cellulitis involving the scrotum and perineal area has been improving Denies any significant pain/burning and does not have any fever and no chills Review of Systems Review of Systems: all systems reviewed and are unremarkable except as noted below Physical Exam Physical Exam: lying in bed without any acute distress Constitutional: well developed, well nourished, + ill appearing and + obese Eyes: PERRL, conjunctivae normal, anicteric sclerae ENMT: external ear and nose normal, oropharynx normal Neck: trachea midline, no thyromegaly Respiratory: no respiratory distress Auscultation: lungs clear to auscultation bilaterally Cardiovascular: Rate/Rhythm: regular rate and regular rhythm; not tachycardic Heart Sounds: normal S1, normal S2 and + murmur Extremities: + edema ( trace edema bilaterally) Gastrointestinal (Abdomen): Inspection/Auscultation: normal bowel sounds; abdomen not distended Percussion/Palpation: abdomen soft; abdomen nontender Musculoskeletal: no acute arthritis involving any of the joints Skin: spreading cellulitis involving the scrotum and adjoining area of the perineum and groins Neurologic: normal touch/pain/proprioception and moves all extremities; no focal motor deficits Psychiatric: A+Ox3, euthymic affect Lymphatic: no cervical or axillary lymphadenopathy Results & Data Results & Data Vital Signs (Past 12 Hours) Vital Signs Temp Pulse Resp BP Pulse Ox O2 Del Method 03/20/24 11:10 36.4 C L 78 18 133/79 92 Room Air 03/20/24 07:31 36.3 C L 65 18 144/84 H 91 Room Air Laboratory Results Short CBC 03/20/24 Range/Units 05:59 WBC 10.38 (4.8-10.8) K/ul Hgb 13.8 L (14.0-18.0) g/dl Hct 42.7 (42.0-52.0) % Plt Count 231 (130-400) K/uL BMP 03/20/24 05:59 Sodium 137 Potassium 3.5 Chloride 101 Carbon Dioxide 30 BUN 42 H Creatinine 1.22 Glucose 108 H Calcium 9.5 Medications Administered Current Inpatient Medications Acetaminophen (Acetaminophen 500 Mg Tab) 1,000 mg PO TID CLAUDIA Stop: 04/18/24 13:59 Last Admin: 03/20/24 12:50 Dose: 1,000 mg Apixaban (Apixaban 5 Mg Tablet) 5 mg PO BID [facility] Stop: 04/17/24 21:37 Last Admin: 03/20/24 09:55 Dose: 5 mg Ciprofloxacin (Ciprofloxacin 500 Mg Tab) 500 mg PO BID [facility]; Protocol Stop: 03/27/24 20:59 Duloxetine HCl (Duloxetine Hcl 60 Mg Cap) 60 mg PO QPM CLAUDIA Stop: 04/17/24 21:37 Last Admin: 03/19/24 20:33 Dose: 60 mg Ferrous Sulfate (Ferrous Sulfate 325 Mg Tab) 325 mg PO QAM CLAUDIA Stop: 04/18/24 08:59 Last Admin: 03/20/24 09:55 Dose: 325 mg Hydromorphone HCl (Hydromorphone Hcl 4 Mg Tab) 4 mg PO Q3H PRN PRN Reason: Pain Stop: 04/02/24 13:00 Last Admin: 03/20/24 06:06 Dose: 4 mg Hydromorphone HCl (Hydromorphone Inj 2 Mg/Ml Syr/Vial) 2 mg IV Q3H PRN PRN Reason: sev pain (7-10) pre dressing Stop: 04/01/24 23:50 Last Admin: 03/20/24 16:12 Dose: 2 mg Lactobacillus Acidophilus (Advanced Probiotic 625 Mg Capsule) 1,250 mg PO DAILY CLAUDIA Stop: 04/18/24 08:59 Last Admin: 03/20/24 09:54 Dose: 1,250 mg Linezolid (Linezolid 600 Mg Tab) 600 mg PO BID CLAUDIA Stop: 03/27/24 20:59 Morphine Sulfate (Morphine Sulfate Cr 15 Mg Tabcr) 15 mg PO Q12H CLAUDIA Stop: 04/02/24 20:59 Last Admin: 03/20/24 09:54 Dose: 15 mg Polyethylene Glycol (Polyethylene (Miralax) 17 Gm Pack) 17 gm PO DAILY CLAUDIA Stop: 04/18/24 08:59 Last Admin: 03/20/24 09:54 Dose: 17 gm Potassium Chloride (Potassium Chloride 10 Meq Tabcr) 10 meq PO QAM CLAUDIA Stop: 04/18/24 08:59 Last Admin: 03/20/24 09:54 Dose: 10 meq Senna/Docusate Sodium (Docusate Sodium/Senna 50/8.6mg Tab) 1 tab PO QAM CLAUDIA Stop: 04/18/24 21:59 Last Admin: 03/20/24 09:54 Dose: 1 tab Tamsulosin HCl (Tamsulosin Hcl 0.4 Mg Cap) 0.4 mg PO HS CLAUDIA Stop: 04/17/24 21:37 Last Admin: 03/19/24 20:33 Dose: 0.4 mg
[2024-03-20] MEDS: LINEZOLID 600 MG TAB PO SCH (21:28)
[2024-03-20] MEDS: CIPROFLOXACIN 500 MG TAB PO SCH (21:28)
[2024-03-21 07:55] LABS: Hematocrit (blood only) 41.9 % (42.0-52.0); Hemoglobin 13.7 g/dl (14.0-18.0); Mean Corpuscular Hemoglobin 30.4 pg (25.0-34.0); Mean Corpuscular Hgb Conc 32.7 g/dL (32.0-36.0); Mean Corpuscular Volume 92.9 fL (80.0-100.0); Mean Platelet Volume 9.1 fL (9.4-12.4); Platelet Count 232 K/uL (130-400); RDW Coefficient of Variation 13.7 % (11.5-14.5); RDW Standard Deviation 46.7 fL (36.4-46.3); Red Blood Count 4.51 M/uL (4.70-6.10); White Blood Count 10.08 K/ul (4.8-10.8)
[2024-03-21 08:23] LABS: Basophils # (auto) 0.14 K/uL (0.00-0.20); Basophils % (auto) 1.4 %; Eosinophils # (auto) 0.38 K/uL (0.00-0.50); Eosinophils % (auto) 3.8 %; Immature Granulocytes # (auto) 0.82 K/uL (0.01-0.20); Immature Granulocytes % (auto) 8.1 %; Lymphocytes # (auto) 0.52 K/uL (1.20-3.40); Lymphocytes % (auto) 5.2 %; Monocytes # (auto) 0.96 K/uL (0.11-0.59); Monocytes % (auto) 9.5 %; Neutrophils # (auto) 7.26 K/uL (1.40-6.50)
[2024-03-21 08:24] LABS: Calcium 9.6 mg/dl (8.6-10.3); Creatinine Clr Calc Pharmacy 76.3 ml/min; Est GFR (African American) 76.5 ml/min; Potassium 3.7 mmol/L (3.5-5.1)
--- NOTE | 2024-03-21 09:35 | Electrocardiogram Report ---
Test Reason : Blood Pressure : / mmHG Vent. Rate : 066 BPM Atrial Rate : 069 BPM P-R Int : 000 ms QRS Dur : 088 ms QT Int : 420 ms P-R-T Axes : 000 034 146 degrees QTc Int : 440 ms Poor data quality, interpretation may be adversely affected Atrial fibrillation Nonspecific T wave abnormality Abnormal ECG When compared with ECG of 18-MAR-2024 11:53, Vent. rate has decreased BY 34 BPM Confirmed by Marco Bauer ([id number]) on 03/21/2024 9:35:40 AM Referred By: REFERRED SELF Confirmed By:Marco Bauer
--- NOTE | 2024-03-21 14:04 | Urology Progress Note ---
Date of Service March 21, 2024 Assessment & Plan (1) Wound of groin: (2) Cellulitis of scrotum: (3) Scrotal swelling: Plan: 73-year-old male with 3-4 weeks of progressive erythema of the scrotum, bilateral inguinal folds and suprapubic area. No evidence of underlying abscess on CT scan or ultrasound. The skin in this area appears extremely irritated with some breakdown of the epidermis, with superficial sloughing in the pressure areas. Patient afebrile, hemodynamically stable Labs reviewedcreatinine 1.09, WBC downtrending (10.08) Blood cultures showing no growth to date Wound culture of scrotum showing E. coli ID consult reviewedpatient has been switched to linezolid and ciprofloxacin Pain is adequately controlled with current regimen Continue with wound care and antibiotics Continue supportive care, pain management and medical management per hospital medicine service will sign off, please contact our service with any questions or changes to clinical status Admission and Anticipated Discharge Date Admission Date: March 18, 2024 Subjective Patient seen and examined at bedside He is awake and resting in bed Reports ongoing scrotal/groin discomfort, adequately controlled with current pain regimen Voiding without difficulty Denies fever or chills Review of Systems Constitutional: as per Subjective / HPI Genitourinary: + as per Subjective / HPI Physical Exam Constitutional: no acute distress Respiratory: no respiratory distress and no labored breathing Musculoskeletal: Head/Neck/Chest: normocephalic Neurologic: moves all extremities and awake Psychiatric: Orientation: alert and oriented x 3 Genitourinary: There is erythema under his pannus, suprapubic region and bilateral inguinal folds as well as scrotum. Area of erythema has receded from marked area. There is breakdown of the epidermis with superficial sloughing under pannus and bilateral inguinal folds which are moist, no significant drainage. There is crusting over suprapubic area and scrotum. Results & Data Vital Signs (Past 12 Hours) Vital Signs Temp Pulse Resp BP Pulse Ox O2 Del Method 03/21/24 07:19 36.5 C 66 18 146/73 H 94 Room Air PG Care Time/CCT Total # of Minutes Spent Total Time Spent with Patient: Total time spent is greater than 50% in coordination of care (as documented) at patient's floor/unit and/or counseling patient: Coding Level of Care Code 60422 SUB INP/OBS CARE 09/28MIN Diagnoses Wound of groin S31.109A Cellulitis of scrotum N49.2 Scrotal swelling N50.89
--- NOTE | 2024-03-21 17:24 | Hospitalist Progress Note ---
Date of Service March 21, 2024 Assessment & Plan (1) Cellulitis of scrotum: Plan: started with progressively worsening rash with wounds/skin maceration in the scrotum and bilateral inguinal area for about 4 weeks duration has been using local antifungal and has had 2 courses of antibiotic starting with amoxicillin and cefdinir and also using lidocaine spray to decrease burning admitted on 15th of this month with worsening cellulitis without any fever and no chills and no white count has been on intravenous ceftriaxone and daptomycin since admission appreciate ID input and recommendation culture is growing gram-negative bacilli antibiotics have been changed to oral Cipro and linezolid appreciate wound care input and recommendation cellulitis of the scrotum and adjoining area of the groin and perineum is getting better will have wound care nurses care for the wound as well will continue current antibiotic and the patient may be discharged in a day or 2 on oral antibiotic as advised (2) Diaphragmatic paralysis: Plan: chronic and remains stable (3) Cor pulmonale: Plan: no acute symptoms and no acute fluid overload (4) Atrial fibrillation: Plan: rate is controlled continue with Eliquis for anticoagulation (5) Wound of groin: Plan: Patient is been evaluated by urology, do not feel that this is any type of foreign years gangrene that would need surgical intervention and will continue to monitor Continue other medications as prescribed. Plan other significant medical condition as mentioned in H&P remain stable Admission and Anticipated Discharge Date Admission Date: March 18, 2024 Subjective 03/20/2024 The patient was seen and examined in medical telemetry unit His cellulitis involving the scrotum and perineal area has been improving Denies any significant pain/burning and does not have any fever and no chills 03/21/2024 The patient was seen and examined in medical telemetry unit He has been stable and the cellulitis in the scrotum and adjoining areas is getting better Review of Systems Review of Systems: all systems reviewed and are unremarkable except as noted below Physical Exam Physical Exam: lying in bed without any acute distress Constitutional: well developed, well nourished, + ill appearing and + obese Eyes: PERRL, conjunctivae normal, anicteric sclerae ENMT: external ear and nose normal, oropharynx normal Neck: trachea midline, no thyromegaly Respiratory: no respiratory distress Auscultation: lungs clear to auscultation bilaterally Cardiovascular: Rate/Rhythm: regular rate and regular rhythm; not tachycardic Heart Sounds: normal S1, normal S2 and + murmur Extremities: + edema ( trace edema bilaterally) Gastrointestinal (Abdomen): Inspection/Auscultation: normal bowel sounds; abdomen not distended Percussion/Palpation: abdomen soft; abdomen nontender Neurologic: normal touch/pain/proprioception and moves all extremities; no focal motor deficits Psychiatric: A+Ox3, euthymic affect Lymphatic: no cervical or axillary lymphadenopathy Results & Data Results & Data Vital Signs (Past 12 Hours) Vital Signs Temp Pulse Resp BP Pulse Ox O2 Del Method 03/21/24 15:51 36.5 C 63 18 137/74 93 Room Air 03/21/24 07:19 36.5 C 66 18 146/73 H 94 Room Air Laboratory Results Short CBC 03/21/24 Range/Units 07:34 WBC 10.08 (4.8-10.8) K/ul Hgb 13.7 L (14.0-18.0) g/dl Hct 41.9 L (42.0-52.0) % Plt Count 232 (130-400) K/uL BMP 03/21/24 07:34 Sodium 137 Potassium 3.7 Chloride 101 Carbon Dioxide 32 BUN 36 H Creatinine 1.09 Glucose 94 Calcium 9.6 Medications Administered Current Inpatient Medications Acetaminophen (Acetaminophen 500 Mg Tab) 1,000 mg PO TID [facility] Stop: 04/18/24 13:59 Last Admin: 03/21/24 13:44 Dose: 1,000 mg Apixaban (Apixaban 5 Mg Tablet) 5 mg PO BID [facility] Stop: 04/17/24 21:37 Last Admin: 03/21/24 08:42 Dose: 5 mg Ciprofloxacin (Ciprofloxacin 500 Mg Tab) 500 mg PO BID [facility]; Protocol Stop: 03/27/24 20:59 Last Admin: 03/21/24 08:42 Dose: 500 mg Duloxetine HCl (Duloxetine Hcl 60 Mg Cap) 60 mg PO QPM [facility] Stop: 04/17/24 21:37 Last Admin: 03/19/24 20:33 Dose: 60 mg Ferrous Sulfate (Ferrous Sulfate 325 Mg Tab) 325 mg PO QAM [facility] Stop: 04/18/24 08:59 Last Admin: 03/21/24 08:41 Dose: 325 mg Hydromorphone HCl (Hydromorphone Hcl 4 Mg Tab) 4 mg PO Q3H PRN PRN Reason: Pain Stop: 04/02/24 13:00 Last Admin: 03/21/24 11:35 Dose: 4 mg Hydromorphone HCl (Hydromorphone Inj 2 Mg/Ml Syr/Vial) 2 mg IV Q3H PRN PRN Reason: sev pain (7-10) pre dressing Stop: 04/01/24 23:50 Last Admin: 03/21/24 14:42 Dose: 2 mg Lactobacillus Acidophilus (Advanced Probiotic 625 Mg Capsule) 1,250 mg PO DAILY [facility] Stop: 04/18/24 08:59 Last Admin: 03/21/24 08:41 Dose: 1,250 mg Linezolid (Linezolid 600 Mg Tab) 600 mg PO BID [facility] Stop: 03/27/24 20:59 Last Admin: 03/21/24 08:43 Dose: 600 mg Morphine Sulfate (Morphine Sulfate Cr 15 Mg Tabcr) 15 mg PO Q12H [facility] Stop: 04/02/24 20:59 Last Admin: 03/21/24 08:51 Dose: 15 mg Polyethylene Glycol (Polyethylene (Miralax) 17 Gm Pack) 17 gm PO DAILY [facility] Stop: 04/18/24 08:59 Last Admin: 03/21/24 08:51 Dose: 17 gm Potassium Chloride (Potassium Chloride 10 Meq Tabcr) 10 meq PO QAM [facility] Stop: 04/18/24 08:59 Last Admin: 03/21/24 08:42 Dose: 10 meq Senna/Docusate Sodium (Docusate Sodium/Senna 50/8.6mg Tab) 1 tab PO QAM [facility] Stop: 04/18/24 21:59 Last Admin: 03/21/24 08:41 Dose: 1 tab Tamsulosin HCl (Tamsulosin Hcl 0.4 Mg Cap) 0.4 mg PO HS [facility] Stop: 04/17/24 21:37 Last Admin: 03/20/24 21:27 Dose: 0.4 mg
[2024-03-22] MEDS: HYDROmorphone HCL 4 MG TAB PO ONE (17:16)
[2024-03-23] MEDS ORDERED: HYDROmorphone HCL 4 MG TAB PO PRN (02:01)
[2024-03-23] MEDS: HYDROmorphone HCL 4 MG TAB PO ONE ×2 (02:21→06:08)
--- NOTE | 2024-03-23 14:52 | Hospitalist Progress Note ---
Date of Service March 23, 2024 Assessment & Plan (1) Cellulitis of scrotum: Plan: started with progressively worsening rash with wounds/skin maceration in the scrotum and bilateral inguinal area for about 4 weeks duration has been using local antifungal and has had 2 courses of antibiotic starting with amoxicillin and cefdinir and also using lidocaine spray to decrease burning admitted on 15 of this month with worsening cellulitis without any fever and no chills and no white count has been on intravenous ceftriaxone and daptomycin since admission appreciate ID input and recommendation culture is growing gram-negative bacilli antibiotics have been changed to oral Cipro and linezolid appreciate wound care input and recommendation cellulitis of the scrotum and adjoining area of the groin and perineum is getting better will have wound care nurses care for the wound as well will continue current antibiotic and the patient may be discharged in a day or 2 on oral antibiotic as advised Clinically much better with improvement of local wounds involving the scrotum and adjoining areas Will continue current antibiotics likely discharge on Monday (2) Diaphragmatic paralysis: Plan: chronic and remains stable (3) Cor pulmonale: Plan: no acute symptoms and no acute fluid overload (4) Atrial fibrillation: Plan: rate is controlled continue with Eliquis for anticoagulation (5) Wound of groin: Plan: Patient is been evaluated by urology, do not feel that this is any type of foreign years gangrene that would need surgical intervention and will continue to monitor Continue other medications as prescribed. Plan other significant medical condition as mentioned in H&P remain stable Admission and Anticipated Discharge Date Admission Date: March 18, 2024 Subjective 03/20/2024 The patient was seen and examined in medical telemetry unit His cellulitis involving the scrotum and perineal area has been improving Denies any significant pain/burning and does not have any fever and no chills 03/21/2024 The patient was seen and examined in medical telemetry unit He has been stable and the cellulitis in the scrotum and adjoining areas is getting better 03/22/2024 The patient was seen and examined in medical telemetry unit and the full progress note is in the paper chart 03/23/2024 The patient was seen and examined in medical telemetry unit He has been feeling much better Pain is reasonably controlled Denies any fever and or chills Minimal red itchy rash involving the hands Review of Systems Review of Systems: all systems reviewed and are unremarkable except as noted below Physical Exam Physical Exam: lying in bed without any acute distress Constitutional: well developed, well nourished, + ill appearing and + obese Eyes: PERRL, conjunctivae normal, anicteric sclerae ENMT: external ear and nose normal, oropharynx normal Neck: trachea midline, no thyromegaly Respiratory: no respiratory distress Auscultation: lungs clear to auscultation bilaterally Cardiovascular: Rate/Rhythm: regular rate and regular rhythm; not tachycardic Heart Sounds: normal S1, normal S2 and + murmur Extremities: + edema ( trace edema bilaterally) Gastrointestinal (Abdomen): Inspection/Auscultation: normal bowel sounds; abdomen not distended Percussion/Palpation: abdomen soft; abdomen nontender Skin: Scrotum and the local perineal and groins shows improvement with decrease in redness and decrease in secretions Neurologic: normal touch/pain/proprioception and moves all extremities; no focal motor deficits Psychiatric: A+Ox3, euthymic affect Lymphatic: no cervical or axillary lymphadenopathy Results & Data Results & Data Vital Signs (Past 12 Hours) Vital Signs Temp Pulse Resp BP Pulse Ox O2 Del Method 03/23/24 11:14 36.4 C L 81 20 129/80 94 Room Air 03/23/24 08:00 Room Air 03/23/24 07:24 36.5 C 73 20 147/87 H 92 Room Air 03/23/24 05:55 36.5 C 51 L 18 150/91 H 93 Room Air Medications Administered Current Inpatient Medications Acetaminophen (Acetaminophen 500 Mg Tab) 1,000 mg PO TID [facility] Stop: 04/18/24 13:59 Last Admin: 03/23/24 13:44 Dose: 1,000 mg Apixaban (Apixaban 5 Mg Tablet) 5 mg PO BID [facility] Stop: 04/17/24 21:37 Last Admin: 03/23/24 08:02 Dose: 5 mg Ciprofloxacin (Ciprofloxacin 500 Mg Tab) 500 mg PO BID [facility]; Protocol Stop: 03/27/24 20:59 Last Admin: 03/23/24 08:02 Dose: 500 mg Duloxetine HCl (Duloxetine Hcl 60 Mg Cap) 60 mg PO QPM [facility] Stop: 04/17/24 21:37 Last Admin: 03/19/24 20:33 Dose: 60 mg Ferrous Sulfate (Ferrous Sulfate 325 Mg Tab) 325 mg PO QAM [facility] Stop: 04/18/24 08:59 Last Admin: 03/23/24 08:03 Dose: 325 mg Hydromorphone HCl (Hydromorphone Hcl 4 Mg Tab) 4 mg PO Q3H PRN PRN Reason: Pain Stop: 04/02/24 13:00 Last Admin: 03/23/24 12:24 Dose: 4 mg Hydromorphone HCl (Hydromorphone Inj 2 Mg/Ml Syr/Vial) 2 mg IV Q3H PRN PRN Reason: sev pain (7-10) pre dressing Stop: 04/01/24 23:50 Last Admin: 03/23/24 08:56 Dose: 2 mg Lactobacillus Acidophilus (Advanced Probiotic 625 Mg Capsule) 1,250 mg PO DAILY [facility] Stop: 04/18/24 08:59 Last Admin: 03/23/24 08:02 Dose: 1,250 mg Linezolid (Linezolid 600 Mg Tab) 600 mg PO BID [facility] Stop: 03/27/24 20:59 Last Admin: 03/23/24 08:03 Dose: 600 mg Morphine Sulfate (Morphine Sulfate Cr 15 Mg Tabcr) 15 mg PO Q12H [facility] Stop: 04/02/24 20:59 Last Admin: 03/23/24 08:02 Dose: 15 mg Polyethylene Glycol (Polyethylene (Miralax) 17 Gm Pack) 17 gm PO DAILY [facility] Stop: 04/18/24 08:59 Last Admin: 03/23/24 08:06 Dose: 17 gm Potassium Chloride (Potassium Chloride 10 Meq Tabcr) 10 meq PO QAM [facility] Stop: 04/18/24 08:59 Last Admin: 03/23/24 08:02 Dose: 10 meq Senna/Docusate Sodium (Docusate Sodium/Senna 50/8.6mg Tab) 1 tab PO QAM [facility] Stop: 04/18/24 21:59 Last Admin: 03/23/24 08:02 Dose: 1 tab Tamsulosin HCl (Tamsulosin Hcl 0.4 Mg Cap) 0.4 mg PO HS [facility] Stop: 04/17/24 21:37 Last Admin: 03/22/24 20:44 Dose: 0.4 mg
[2024-03-23] MEDS: HYDROCORTISONE 1% CRM 30 GM TUBE EXT SCH (20:01)
[2024-03-24 06:59] LABS: Hematocrit (blood only) 44.9 % (42.0-52.0); Hemoglobin 14.3 g/dl (14.0-18.0); Mean Corpuscular Hgb Conc 31.8 g/dL (32.0-36.0); Mean Corpuscular Volume 94.1 fL (80.0-100.0); Mean Platelet Volume 8.7 fL (9.4-12.4); Platelet Count 234 K/uL (130-400); RDW Coefficient of Variation 13.8 % (11.5-14.5); RDW Standard Deviation 47.8 fL (36.4-46.3); Red Blood Count 4.77 M/uL (4.70-6.10)
[2024-03-24 07:13] LABS: BUN Creatinine Ratio 25.2 (10-20); Calcium 9.7 mg/dl (8.6-10.3); Creatinine Clr Calc Pharmacy 70.2 ml/min; Est GFR (African American) 68.8 ml/min; Est GFR (Non-African American) 59.4 ml/min; Potassium 4.2 mmol/L (3.5-5.1)
[2024-03-24 07:43] LABS: Polychromasia 1+
[2024-03-24 07:50] LABS: ALC (manual) 0.67 K/uL (1.2-3.4); Eosinophils # (manual) 0.38 K/uL (0-0.50); Lymphocytes # (manual) 0.67 K/uL (1.2-3.4); Metamyelocytes # (manual) 0.29 K/uL (0-0); Monocytes # (manual) 0.67 K/uL (0.11-0.59); Myelocytes # (manual) 0.29 K/uL (0-0); Neutrophils % (manual) 75 %; Schistocytes 1+
--- NOTE | 2024-03-24 15:51 | Hospitalist Progress Note ---
Date of Service March 24, 2024 Assessment & Plan (1) Cellulitis of scrotum: Plan: started with progressively worsening rash with wounds/skin maceration in the scrotum and bilateral inguinal area for about 4 weeks duration has been using local antifungal and has had 2 courses of antibiotic starting with amoxicillin and cefdinir and also using lidocaine spray to decrease burning admitted on 15 of this month with worsening cellulitis without any fever and no chills and no white count has been on intravenous ceftriaxone and daptomycin since admission appreciate ID input and recommendation culture is growing gram-negative bacilli antibiotics have been changed to oral Cipro and linezolid appreciate wound care input and recommendation cellulitis of the scrotum and adjoining area of the groin and perineum is getting better will have wound care nurses care for the wound as well will continue current antibiotic and the patient may be discharged in a day or 2 on oral antibiotic as advised Clinically much better with improvement of local wounds involving the scrotum and adjoining areas Remains medically stable and improving gradually Likely discharge on Monday (2) Diaphragmatic paralysis: Plan: chronic and remains stable (3) Cor pulmonale: Plan: no acute symptoms and no acute fluid overload (4) Atrial fibrillation: Plan: rate is controlled continue with Eliquis for anticoagulation (5) Wound of groin: Plan: Patient is been evaluated by urology, do not feel that this is any type of foreign years gangrene that would need surgical intervention and will continue to monitor Continue other medications as prescribed. Plan other significant medical condition as mentioned in H&P remain stable Admission and Anticipated Discharge Date Admission Date: March 18, 2024 Subjective 03/20/2024 The patient was seen and examined in medical telemetry unit His cellulitis involving the scrotum and perineal area has been improving Denies any significant pain/burning and does not have any fever and no chills 03/21/2024 The patient was seen and examined in medical telemetry unit He has been stable and the cellulitis in the scrotum and adjoining areas is getting better 03/22/2024 The patient was seen and examined in medical telemetry unit and the full progress note is in the paper chart 03/23/2024 The patient was seen and examined in medical telemetry unit He has been feeling much better Pain is reasonably controlled Denies any fever and or chills Minimal red itchy rash involving the hands 03/23/2024 The patient was seen and examined in the medical telemetry unit He has been feeling much better Scrotal lesions has been improving Pain seems to be reasonably controlled Review of Systems Review of Systems: all systems reviewed and are unremarkable except as noted below Physical Exam Physical Exam: lying in bed without any acute distress Constitutional: well developed, well nourished, + ill appearing and + obese Eyes: PERRL, conjunctivae normal, anicteric sclerae ENMT: external ear and nose normal, oropharynx normal Neck: trachea midline, no thyromegaly Respiratory: no respiratory distress Auscultation: lungs clear to auscultation bilaterally Cardiovascular: Rate/Rhythm: regular rate and regular rhythm; not tachycardic Heart Sounds: normal S1, normal S2 and + murmur Extremities: + edema ( trace edema bilaterally) Gastrointestinal (Abdomen): Inspection/Auscultation: normal bowel sounds; abdomen not distended Percussion/Palpation: abdomen soft; abdomen nontender Neurologic: normal touch/pain/proprioception and moves all extremities; no focal motor deficits Psychiatric: A+Ox3, euthymic affect Lymphatic: no cervical or axillary lymphadenopathy Results & Data Results & Data Vital Signs (Past 12 Hours) Vital Signs Temp Pulse Resp BP Pulse Ox O2 Del Method 03/24/24 11:20 36.5 C 45 L 20 150/93 H 93 Room Air 03/24/24 08:10 Room Air 03/24/24 07:37 36.5 C 55 L 19 150/85 H 94 Room Air 03/24/24 04:00 36.5 C 59 L 20 144/76 H 95 BiPAP Laboratory Results Short CBC 03/24/24 Range/Units 06:25 WBC 9.60 (4.8-10.8) K/ul Hgb 14.3 (14.0-18.0) g/dl Hct 44.9 (42.0-52.0) % Plt Count 234 (130-400) K/uL BMP 03/24/24 06:25 Sodium 139 Potassium 4.2 Chloride 105 Carbon Dioxide 31 BUN 30 H Creatinine 1.19 Glucose 95 Calcium 9.7 Medications Administered Current Inpatient Medications Acetaminophen (Acetaminophen 500 Mg Tab) 1,000 mg PO TID [facility] Stop: 04/18/24 13:59 Last Admin: 03/24/24 14:17 Dose: 1,000 mg Apixaban (Apixaban 5 Mg Tablet) 5 mg PO BID [facility] Stop: 04/17/24 21:37 Last Admin: 03/24/24 08:10 Dose: 5 mg Ciprofloxacin (Ciprofloxacin 500 Mg Tab) 500 mg PO BID [facility]; Protocol Stop: 03/27/24 20:59 Last Admin: 03/24/24 08:10 Dose: 500 mg Duloxetine HCl (Duloxetine Hcl 60 Mg Cap) 60 mg PO QPM [facility] Stop: 04/17/24 21:37 Last Admin: 03/19/24 20:33 Dose: 60 mg Ferrous Sulfate (Ferrous Sulfate 325 Mg Tab) 325 mg PO QAM [facility] Stop: 04/18/24 08:59 Last Admin: 03/24/24 08:11 Dose: 325 mg Hydrocortisone (Hydrocortisone 1% Crm 30 Gm Tube) 1 appln EXT BID [facility] Stop: 04/22/24 20:59 Last Admin: 03/24/24 08:11 Dose: 1 appln Hydromorphone HCl (Hydromorphone Hcl 4 Mg Tab) 4 mg PO Q3H PRN PRN Reason: Pain Stop: 04/02/24 13:00 Last Admin: 03/24/24 13:06 Dose: 4 mg Hydromorphone HCl (Hydromorphone Inj 2 Mg/Ml Syr/Vial) 2 mg IV Q3H PRN PRN Reason: sev pain (7-10) pre dressing Stop: 04/01/24 23:50 Last Admin: 03/24/24 15:19 Dose: 2 mg Lactobacillus Acidophilus (Advanced Probiotic 625 Mg Capsule) 1,250 mg PO DAILY [facility] Stop: 04/18/24 08:59 Last Admin: 03/24/24 08:11 Dose: 1,250 mg Linezolid (Linezolid 600 Mg Tab) 600 mg PO BID [facility] Stop: 03/27/24 20:59 Last Admin: 03/24/24 08:11 Dose: 600 mg Morphine Sulfate (Morphine Sulfate Cr 15 Mg Tabcr) 15 mg PO Q12H [facility] Stop: 04/02/24 20:59 Last Admin: 03/24/24 08:17 Dose: 15 mg Polyethylene Glycol (Polyethylene (Miralax) 17 Gm Pack) 17 gm PO DAILY [facility] Stop: 04/18/24 08:59 Last Admin: 03/24/24 08:17 Dose: 17 gm Potassium Chloride (Potassium Chloride 10 Meq Tabcr) 10 meq PO QAM [facility] Stop: 04/18/24 08:59 Last Admin: 03/24/24 08:12 Dose: 10 meq Senna/Docusate Sodium (Docusate Sodium/Senna 50/8.6mg Tab) 1 tab PO QAM [facility] Stop: 04/18/24 21:59 Last Admin: 03/24/24 08:12 Dose: 1 tab Tamsulosin HCl (Tamsulosin Hcl 0.4 Mg Cap) 0.4 mg PO [facility] Stop: 04/17/24 21:37 Last Admin: 03/23/24 20:03 Dose: 0.4 mg
--- NOTE | 2024-03-25 16:54 | Hospitalist Progress Note ---
Date of Service March 25, 2024 Assessment & Plan (1) Cellulitis of scrotum: Plan: started with progressively worsening rash with wounds/skin maceration in the scrotum and bilateral inguinal area for about 4 weeks duration has been using local antifungal and has had 2 courses of antibiotic starting with amoxicillin and cefdinir and also using lidocaine spray to decrease burning admitted on 15th of this month with worsening cellulitis without any fever and no chills and no white count has been on intravenous ceftriaxone and daptomycin since admission appreciate ID input and recommendation culture is growing gram-negative bacilli antibiotics have been changed to oral Cipro and linezolid appreciate wound care input and recommendation cellulitis of the scrotum and adjoining area of the groin and perineum is getting better will have wound care nurses care for the wound as well will continue current antibiotic and the patient may be discharged in a day or 2 on oral antibiotic as advised Clinically much better with improvement of local wounds involving the scrotum and adjoining areas Remains medically stable and improving gradually Has been showing little improvement Has been complaining of more pain which may not be able to be taken care of at home Will see him tomorrow and try to discharge home in the afternoon Will need appropriate wound care set up as per the Instructional (2) Diaphragmatic paralysis: Plan: chronic and remains stable (3) Cor pulmonale: Plan: no acute symptoms and no acute fluid overload (4) Atrial fibrillation: Plan: rate is controlled continue with Eliquis for anticoagulation (5) Wound of groin: Plan: Patient is been evaluated by urology, do not feel that this is any type of foreign years gangrene that would need surgical intervention and will continue to monitor Continue other medications as prescribed. Plan other significant medical condition as mentioned in H&P remain stable Admission and Anticipated Discharge Date Admission Date: March 18, 2024 Subjective 03/20/2024 The patient was seen and examined in medical telemetry unit His cellulitis involving the scrotum and perineal area has been improving Denies any significant pain/burning and does not have any fever and no chills 03/21/2024 The patient was seen and examined in medical telemetry unit He has been stable and the cellulitis in the scrotum and adjoining areas is getting better 03/22/2024 The patient was seen and examined in medical telemetry unit and the full progress note is in the paper chart 03/23/2024 The patient was seen and examined in medical telemetry unit He has been feeling much better Pain is reasonably controlled Denies any fever and or chills Minimal red itchy rash involving the hands 03/24/2024 The patient was seen and examined in the medical telemetry unit He has been feeling much better Scrotal lesions has been improving Pain seems to be reasonably controlled 03/25/2024 The patient was seen and examined in medical telemetry unit He is scrotal and perineal wound has been improving but complains to have occasional severe pain Denies any fever and chills Review of Systems Review of Systems: all systems reviewed and are unremarkable except as noted below Physical Exam Physical Exam: lying in bed without any acute distress Constitutional: well developed, well nourished, + ill appearing and + obese Eyes: PERRL, conjunctivae normal, anicteric sclerae ENMT: external ear and nose normal, oropharynx normal Neck: trachea midline, no thyromegaly Respiratory: no respiratory distress Auscultation: lungs clear to auscultation bilaterally Cardiovascular: Rate/Rhythm: regular rate and regular rhythm; not tachycardic Heart Sounds: normal S1, normal S2 and + murmur Extremities: + edema ( trace edema bilaterally) Gastrointestinal (Abdomen): Inspection/Auscultation: normal bowel sounds; abdomen not distended Percussion/Palpation: abdomen soft; abdomen nontender Neurologic: normal touch/pain/proprioception and moves all extremities; no focal motor deficits Psychiatric: A+Ox3, euthymic affect Lymphatic: no cervical or axillary lymphadenopathy Results & Data Results & Data Vital Signs (Past 12 Hours) Vital Signs Temp Pulse Resp BP Pulse Ox Pulse Ox O2 Del Method 03/25/24 16:38 91 03/25/24 16:36 148/85 H 03/25/24 16:15 36.4 C L 82 16 192/70 H 91 Room Air 03/25/24 11:26 36.7 C 63 16 177/82 H 96 Room Air 03/25/24 08:10 Room Air 03/25/24 07:52 36.7 C 61 16 185/90 H 94 Room Air O2 Del Method 03/25/24 16:38 Room Air 03/25/24 16:36 03/25/24 16:15 03/25/24 11:26 03/25/24 08:10 03/25/24 07:52 Medications Administered Current Inpatient Medications Acetaminophen (Acetaminophen 500 Mg Tab) 1,000 mg PO TID [facility] Stop: 04/18/24 13:59 Last Admin: 03/25/24 14:51 Dose: 1,000 mg Apixaban (Apixaban 5 Mg Tablet) 5 mg PO BID [facility] Stop: 04/17/24 21:37 Last Admin: 03/25/24 08:10 Dose: 5 mg Ciprofloxacin (Ciprofloxacin 500 Mg Tab) 500 mg PO BID [facility]; Protocol Stop: 03/27/24 20:59 Last Admin: 03/25/24 08:11 Dose: 500 mg Duloxetine HCl (Duloxetine Hcl 60 Mg Cap) 60 mg PO QPM [facility] Stop: 04/17/24 21:37 Last Admin: 03/19/24 20:33 Dose: 60 mg Ferrous Sulfate (Ferrous Sulfate 325 Mg Tab) 325 mg PO QAM [facility] Stop: 04/18/24 08:59 Last Admin: 03/25/24 08:10 Dose: 325 mg Hydrocortisone (Hydrocortisone 1% Crm 30 Gm Tube) 1 appln EXT BID [facility] Stop: 04/22/24 20:59 Last Admin: 03/25/24 08:11 Dose: 1 appln Hydromorphone HCl (Hydromorphone Hcl 4 Mg Tab) 4 mg PO Q3H PRN PRN Reason: Pain Stop: 04/02/24 13:00 Last Admin: 03/25/24 07:37 Dose: 4 mg Hydromorphone HCl (Hydromorphone Inj 2 Mg/Ml Syr/Vial) 2 mg IV Q3H PRN PRN Reason: sev pain (7-10) pre dressing Stop: 04/01/24 23:50 Last Admin: 03/25/24 15:43 Dose: 2 mg Lactobacillus Acidophilus (Advanced Probiotic 625 Mg Capsule) 1,250 mg PO DAILY [facility] Stop: 04/18/24 08:59 Last Admin: 03/25/24 08:11 Dose: 1,250 mg Linezolid (Linezolid 600 Mg Tab) 600 mg PO BID [facility] Stop: 03/27/24 20:59 Last Admin: 03/25/24 08:10 Dose: 600 mg Morphine Sulfate (Morphine Sulfate Cr 15 Mg Tabcr) 15 mg PO Q12H [facility] Stop: 04/02/24 20:59 Last Admin: 03/25/24 08:09 Dose: 15 mg Polyethylene Glycol (Polyethylene (Miralax) 17 Gm Pack) 17 gm PO DAILY [facility] Stop: 04/18/24 08:59 Last Admin: 03/25/24 08:11 Dose: Not Given Potassium Chloride (Potassium Chloride 10 Meq Tabcr) 10 meq PO QAM [facility] Stop: 04/18/24 08:59 Last Admin: 03/25/24 08:09 Dose: 10 meq Senna/Docusate Sodium (Docusate Sodium/Senna 50/8.6mg Tab) 1 tab PO QAM [facility] Stop: 04/18/24 21:59 Last Admin: 03/25/24 08:11 Dose: Not Given Tamsulosin HCl (Tamsulosin Hcl 0.4 Mg Cap) 0.4 mg PO HS [facility] Stop: 04/17/24 21:37 Last Admin: 03/24/24 20:01 Dose: 0.4 mg
[2024-03-25] MEDS: hydrALAZINE HCL 20 MG/ML VIAL IV ONE (23:24)
[2024-03-26] MEDS: diphenhydrAMINE Capsule 25 MG CAP PO ONE (01:50)
[2024-03-26] MEDS: COLLAGENASE OINT 30 GM TUBE EXT SCH (10:40)
--- NOTE | 2024-03-26 18:39 | Hospitalist Progress Note ---
Date of Service March 26, 2024 Assessment & Plan (1) Cellulitis of scrotum: Plan: started with progressively worsening rash with wounds/skin maceration in the scrotum and bilateral inguinal area for about 4 weeks duration has been using local antifungal and has had 2 courses of antibiotic starting with amoxicillin and cefdinir and also using lidocaine spray to decrease burning admitted on 15th of this month with worsening cellulitis without any fever and no chills and no white count has been on intravenous ceftriaxone and daptomycin since admission appreciate ID input and recommendation culture is growing gram-negative bacilli antibiotics have been changed to oral Cipro and linezolid appreciate wound care input and recommendation cellulitis of the scrotum and adjoining area of the groin and perineum is getting better will have wound care nurses care for the wound as well will continue current antibiotic and the patient may be discharged in a day or 2 on oral antibiotic as advised Clinically much better with improvement of local wounds involving the scrotum and adjoining areas Remains medically stable and improving gradually Has been showing little improvement Has been complaining of more pain which may not be able to be taken care of at home Appreciate wound care nurse reevaluation and plan Intravenous Dilaudid has been discontinued except for dressing He will be discharged tomorrow He has been on oral ciprofloxacin and oral Zyvox which should be continued for a total of 14 days from 03/19/2024 Will get CBC CMP and CRP tomorrow Hypertension Blood pressure has been running high Will start Toprol-XL 25 mg once daily (2) Diaphragmatic paralysis: Plan: chronic and remains stable (3) Cor pulmonale: Plan: no acute symptoms and no acute fluid overload (4) Atrial fibrillation: Plan: rate is controlled continue with Eliquis for anticoagulation (5) Wound of groin: Plan: Patient is been evaluated by urology, do not feel that this is any type of fore ign years gangrene that would need surgical intervention and will continue to monitor Continue other medications as prescribed. Plan other significant medical condition as mentioned in H&P remain stable Admission and Anticipated Discharge Date Admission Date: March 18, 2024 Subjective 03/20/2024 The patient was seen and examined in medical telemetry unit His cellulitis involving the scrotum and perineal area has been improving Denies any significant pain/burning and does not have any fever and no chills 03/21/2024 The patient was seen and examined in medical telemetry unit He has been stable and the cellulitis in the scrotum and adjoining areas is getting better 03/22/2024 The patient was seen and examined in medical telemetry unit and the full progress note is in the paper chart 03/23/2024 The patient was seen and examined in medical telemetry unit He has been feeling much better Pain is reasonably controlled Denies any fever and or chills Minimal red itchy rash involving the hands 03/24/2024 The patient was seen and examined in the medical telemetry unit He has been feeling much better Scrotal lesions has been improving Pain seems to be reasonably controlled 03/25/2024 The patient was seen and examined in medical telemetry unit He is scrotal and perineal wound has been improving but complains to have occasional severe pain Denies any fever and chills 03/26/2024 The patient was seen and examined in medical telemetry unit He has been feeling much better and the pain seems to be reasonably controlled with current medications He will be discharged home tomorrow Blood pressure remains on the higher side will adjust the medication Review of Systems Review of Systems: all systems reviewed and are unremarkable except as noted below Physical Exam Physical Exam: lying in bed without any acute distress Constitutional: well developed, well nourished, + ill appearing and + obese Eyes: PERRL, conjunctivae normal, anicteric sclerae ENMT: external ear and nose normal, oropharynx normal Neck: trachea midline, no thyromegaly Respiratory: no respiratory distress Auscultation: lungs clear to auscultation bilaterally Cardiovascular: Rate/Rhythm: regular rate and regular rhythm; not tachycardic Heart Sounds: normal S1, normal S2 and + murmur Extremities: + edema ( trace edema bilaterally) Gastrointestinal (Abdomen): Inspection/Auscultation: normal bowel sounds; abdomen not distended Percussion/Palpation: abdomen soft; abdomen nontender Neurologic: normal touch/pain/proprioception and moves all extremities; no focal motor deficits Psychiatric: A+Ox3, euthymic affect Lymphatic: no cervical or axillary lymphadenopathy Results & Data Results & Data Vital Signs (Past 12 Hours) Vital Signs Temp Pulse Resp BP Pulse Ox O2 Del Method 03/26/24 15:22 36.5 C 70 17 179/97 H 96 Room Air 03/26/24 07:19 36.9 C 74 20 186/117 H 92 Room Air Medications Administered Current Inpatient Medications Acetaminophen (Acetaminophen 500 Mg Tab) 1,000 mg PO TID [facility] Stop: 04/18/24 13:59 Last Admin: 03/26/24 15:14 Dose: 1,000 mg Apixaban (Apixaban 5 Mg Tablet) 5 mg PO BID [facility] Stop: 04/17/24 21:37 Last Admin: 03/26/24 08:57 Dose: 5 mg Ciprofloxacin (Ciprofloxacin 500 Mg Tab) 500 mg PO BID [facility]; Protocol Stop: 03/27/24 20:59 Last Admin: 03/26/24 08:57 Dose: 500 mg Collagenase (Collagenase Oint 30 Gm Tube) 1 appln EXT DAILY [facility]; Protocol Stop: 04/25/24 09:14 Last Admin: 03/26/24 10:40 Dose: 1 appln Diphenhydramine HCl (Diphenhydramine Capsule 25 Mg Cap) 25 mg PO Q8H PRN PRN Reason: Itching Stop: 04/25/24 17:11 Duloxetine HCl (Duloxetine Hcl 60 Mg Cap) 60 mg PO QPM [facility] Stop: 04/17/24 21:37 Last Admin: 03/19/24 20:33 Dose: 60 mg Ferrous Sulfate (Ferrous Sulfate 325 Mg Tab) 325 mg PO QAM [facility] Stop: 04/18/24 08:59 Last Admin: 03/26/24 08:58 Dose: 325 mg Hydrocortisone (Hydrocortisone 1% Crm 30 Gm Tube) 1 appln EXT BID [facility] Stop: 04/22/24 20:59 Last Admin: 03/26/24 08:59 Dose: 1 appln Hydromorphone HCl (Hydromorphone Hcl 4 Mg Tab) 4 mg PO Q3H PRN PRN Reason: Pain Stop: 04/02/24 13:00 Last Admin: 03/26/24 15:17 Dose: 4 mg Hydromorphone HCl (Hydromorphone Inj 2 Mg/Ml Syr/Vial) 2 mg IV DAILY PRN PRN Reason: sev pain (7-10) pre dressing Stop: 04/09/24 10:50 Lactobacillus Acidophilus (Advanced Probiotic 625 Mg Capsule) 1,250 mg PO DAILY [facility] Stop: 04/18/24 08:59 Last Admin: 03/26/24 08:58 Dose: 1,250 mg Linezolid (Linezolid 600 Mg Tab) 600 mg PO BID [facility] Stop: 03/27/24 20:59 Last Admin: 03/26/24 08:57 Dose: 600 mg Metoprolol Succinate (Metoprolol Succ 25mg Ext Rel Tab) 25 mg PO QAM [facility] Stop: 04/25/24 18:44 Morphine Sulfate (Morphine Sulfate Cr 15 Mg Tabcr) 15 mg PO Q12H [facility] Stop: 04/02/24 20:59 Last Admin: 03/26/24 09:02 Dose: 15 mg Polyethylene Glycol (Polyethylene (Miralax) 17 Gm Pack) 17 gm PO DAILY [facility] Stop: 04/18/24 08:59 Last Admin: 03/26/24 08:59 Dose: Not Given Potassium Chloride (Potassium Chloride 10 Meq Tabcr) 10 meq PO QAM [facility] Stop: 04/18/24 08:59 Last Admin: 03/26/24 08:58 Dose: 10 meq Senna/Docusate Sodium (Docusate Sodium/Senna 50/8.6mg Tab) 1 tab PO QAM [facility] Stop: 04/18/24 21:59 Last Admin: 03/26/24 09:00 Dose: Not Given Tamsulosin HCl (Tamsulosin Hcl 0.4 Mg Cap) 0.4 mg PO HS [facility] Stop: 04/17/24 21:37 Last Admin: 03/25/24 20:07 Dose: 0.4 mg
[2024-03-26] MEDS: METOPROLOL SUCC 25MG EXT REL TAB PO SCH (19:21)
[2024-03-26] MEDS: diphenhydrAMINE Capsule 25 MG CAP PO PRN (21:49)
[2024-03-27 06:36] LABS: Basophils # (auto) 0.07 K/uL (0.00-0.20); Basophils % (auto) 0.9 %; Eosinophils # (auto) 0.27 K/uL (0.00-0.50); Eosinophils % (auto) 3.5 %; Hematocrit (blood only) 43.1 % (42.0-52.0); Hemoglobin 13.9 g/dl (14.0-18.0); Immature Granulocytes # (auto) 0.37 K/uL (0.01-0.20); Immature Granulocytes % (auto) 4.8 %; Lymphocytes # (auto) 0.74 K/uL (1.20-3.40); Lymphocytes % (auto) 9.6 %; Mean Corpuscular Hemoglobin 29.8 pg (25.0-34.0); Mean Corpuscular Hgb Conc 32.3 g/dL (32.0-36.0); Mean Corpuscular Volume 92.5 fL (80.0-100.0); Mean Platelet Volume 9.1 fL (9.4-12.4); Monocytes # (auto) 0.86 K/uL (0.11-0.59); Monocytes % (auto) 11.2 %; Neutrophils # (auto) 5.39 K/uL (1.40-6.50); Platelet Count 190 K/uL (130-400); RDW Standard Deviation 46.9 fL (36.4-46.3); Red Blood Count 4.66 M/uL (4.70-6.10)
[2024-03-27 06:57] LABS: Albumin Globulin Ratio 1.2 (0.9-2); Albumin Level 3.3 gm/dl (3.4-5.0); BUN Creatinine Ratio 18.2 (10-20); Bilirubin,Total 0.5 mg/dl (0.2-1.0); C Reactive Protein 0.56 mg/dl (0-0.5); Calcium 9.2 mg/dl (8.6-10.3); Est GFR (African American) 67.5 ml/min; Est GFR (Non-African American) 58.2 ml/min; Globulin 2.7 gm/dl (2.5-4.0); Potassium 4.2 mmol/L (3.5-5.1)
--- NOTE | 2024-03-27 14:33 | Hospitalist Progress Note ---
Date of Service March 27, 2024 Assessment & Plan (1) Cellulitis of scrotum: Plan: started with progressively worsening rash with wounds/skin maceration in the scrotum and bilateral inguinal area for about 4 weeks duration. Has been using local antifungal and has had 2 courses of antibiotic starting with amoxicillin and cefdinir and also using lidocaine spray to decrease burning Scrotal cellulitis Groin wound--POA --CT ABD:Partially visualized subcutaneous fat stranding in the visualized portion of the scrotum, [id number] is highly limited. No subcutaneous emphysema or drainable fluid collection is seen --Scrotal USD:No acute sonographic abnormality is seen involving the testes or scrotum. Large right-sided hydrocele. This was also seen in 2019. -- Blood cultures negative --Wound culture grew E. 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 Plan other significant medical condition as mentioned in H&P remain stable DVT Px: Eliquis CODE STATUS Full code Disposition Home Admission and Anticipated Discharge Date Admission Date: March 18, 2024 Subjective Patient is seen and examined at bedside Scrotal pain is controlled with medications Offers no new complaints today Denies any chest pain, dyspnea, nausea, vomiting, abdominal pain Plan to be discharged home today Review of Systems Review of Systems: All systems reviewed & are unremarkable except as noted in Subjective Physical Exam Physical Exam: Physical Exam: Vitals signs as noted above General Appearance:Obese, no apparent distress Head: normocephalic, Atraumatic Eyes: normal inspection, EOMI Neck: supple, Trachea midline Respiratory/Chest: Normal breath sounds, CTA, No accessory muscle use Cardiovascular: S1, S2, +murmur Abdomen/GI:Soft, Non tender, Bowel sounds present : Scrotal/groin erythema, skin breakdown Extremities/Musculoskeletal:normal inspection, Trace edema Neurologic/Psych:AAOX3, grossly no focal neurological deficits Skin: normal color, warm Results & Data Results & Data Vital Signs (Past 12 Hours) Vital Signs Temp Pulse Resp BP Pulse Ox O2 Del Method 03/27/24 07:55 36.7 C 58 L 18 159/89 H 95 Room Air 03/27/24 06:06 95 H 171/94 H Laboratory Results Short CBC 03/27/24 Range/Units 05:55 WBC 7.70 (4.8-10.8) K/ul Hgb 13.9 L (14.0-18.0) g/dl Hct 43.1 (42.0-52.0) % Plt Count 190 (130-400) K/uL BMP 03/27/24 05:55 Sodium 139 Potassium 4.2 Chloride 107 Carbon Dioxide 28 BUN 22 Creatinine 1.21 Glucose 93 Calcium 9.2 Liver Function 03/27/24 Range/Units 05:55 Total Bilirubin 0.5 (0.2-1.0) mg/dl AST 25 (13-39) U/L ALT 31 (7-52) U/L Alkaline Phosphatase 108 H (34-104) U/L Albumin 3.3 L (3.4-5.0) gm/dl
--- NOTE | 2024-03-27 14:58 | Discharge Summary ---
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 Patient states that 4 weeks ago, he started to notice redness and burning sensation at the base of his scrotum. He was applying miconazole cream, and clobetasol cream over the area and also took amoxicillin p.o. with no success. In fact, the rash eventually spread to his inguinal and upper thigh and developed open areas. He had an appointment with the cyber defense analyst last March 11, wound cultures obtained which eventually grew E. coli, Klebsiella, Enterococcus. He was seen by his PCP last Monday and patient was given a dose of IV ceftriaxone IM, and prescribed with oral cefdinir. Progression of the wounds and rash prompted ER consult. At the ER, patient received afebrile, heart rate in the 90s. White count 16,000 CT abdomen pelvis: Partially visualized subcutaneous fat stranding in the visualized portion of the scrotum, xfzky-ov-layw is highly limited. No subcutaneous emphysema or drainable fluid collection is seen Scrotal ultrasound: 1. No acute sonographic abnormality is seen involving the testes or scrotum. 2. Large right-sided hydrocele. This was also seen in 2019. 3. Additional findings as above. He was given IV vancomycin and Zosyn, IV Dilaudid. On exam, patient is seen resting in bed sitting up, very pleasant gentleman. States pain over the affected area has become 10 out of 10 with standing and walking, at rest around 6 out of 10. No problems with voiding. No other new symptom Admission Exam Per Admitting Provider General- oriented x 3, not in distress, speaks in sentences with no effort or accessory muscle use Head- atraumatic Eyes- PERRL, EOMI, anicteric ENT- oropharynx clear Neck- supple, no JVD, no adenopathy, no thyromegaly; carotids +2/2, no bruits appreciated Lungs- clear to auscultation bilaterally, no rales/wheezes Heart- normal rate, regular rhythm; no murmur, no gallop, no rub appreciated Abdomen- normal bowel sounds, nondistended, soft, nontender, no masses or hepatosplenomegaly Abdomen/scrotum/bilateral inguinal area: Diffuse erythema, moist with yellow discharge, with open areas/excoriations noted on the scrotum, inguinal area and suprapubic/abdominal fold area Extremities- no pretibial edema, no calf tenderness; peripheral pulses intact Neuro- alert, oriented x 3; CN 2-12 grossly intact; motor 5/5 bilaterally;sensation 100% on all extremities; no other gross focal neurologic deficits Skin- warm & dry Principal Diagnosis Scrotal cellulitis Groin wound Discharge Data Allergies Allergy/AdvReac Type Severity Reaction Status Date / Time No Known Allergies Allergy Unknown Verified 03/18/24 19:38 Consultations 03/18/24 16:37 ED Decision to Admit Stat 03/18/24 16:52 Consult Infectious Diseases Routine Procedures Performed Laboratory Results WBC 7.70 K/ul (4.8-10.8) 03/27/24 05:55 RBC 4.66 M/uL (4.70-6.10) L 03/27/24 05:55 Hgb 13.9 g/dl (14.0-18.0) L 03/27/24 05:55 POC Hgb 16.0 g/dl (14.0-18.0) 03/18/24 12:51 Hct 43.1 % (42.0-52.0) 03/27/24 05:55 POC Hct 47 % (42-52) 03/18/24 12:51 MCV 92.5 fL (80.0-100.0) 03/27/24 05:55 MCH 29.8 pg (25.0-34.0) 03/27/24 05:55 MCHC 32.3 g/dL (32.0-36.0) 03/27/24 05:55 RDW Std Deviation 46.9 fL (36.4-46.3) H 03/27/24 05:55 RDW Coeff of Joes 14.0 % (11.5-14.5) 03/27/24 05:55 Plt Count 190 K/uL (130-400) 03/27/24 05:55 MPV 9.1 fL (9.4-12.4) L 03/27/24 05:55 Immature Gran % (Auto) 4.8 % 03/27/24 05:55 Neut % (Auto) 70.0 % 03/27/24 05:55 Lymph % (Auto) 9.6 % 03/27/24 05:55 [place] % (Auto) 11.2 % 03/27/24 05:55 Eos % (Auto) 3.5 % 03/27/24 05:55 Baso % (Auto) 0.9 % 03/27/24 05:55 Neut # (Auto) 5.39 K/uL (1.40-6.50) 03/27/24 05:55 Lymph # (Auto) 0.74 K/uL (1.20-3.40) L 03/27/24 05:55 [place] # (Auto) 0.86 K/uL (0.11-0.59) H 03/27/24 05:55 Eos # (Auto) 0.27 K/uL (0.00-0.50) 03/27/24 05:55 Baso # (Auto) 0.07 K/uL (0.00-0.20) 03/27/24 05:55 Immature Gran # (Auto) 0.37 K/uL (0.01-0.20) H 03/27/24 05:55 Neutrophils % (Manual) 75 % 03/24/24 06:25 Neutrophils # (Manual) 7.20 K/uL (1.40-6.50) H 03/24/24 06:25 Total Absolute Neuts 7.20 K/uL (1.4-6.5) H 03/24/24 06:25 Lymphocytes # (Manual) 0.67 K/uL (1.2-3.4) L 03/24/24 06:25 Total Abs Lymphocytes 0.67 K/uL (1.2-3.4) L 03/24/24 06:25 Monocytes # (Manual) 0.67 K/uL (0.11-0.59) H 03/24/24 06:25 Eosinophils # (Manual) 0.38 K/uL (0-0.50) 03/24/24 06:25 Basophils # (Manual) 0.10 K/uL (0-0.2) 03/24/24 06:25 Metamyelocytes # (Man) 0.29 K/uL (0-0) H 03/24/24 06:25 Myelocytes # (Manual) 0.29 K/uL (0-0) H 03/24/24 06:25 Polychromasia 1+ 03/24/24 06:25 Schistocytes 1+ 03/24/24 06:25 POC Sodium 136 mmol/L (135-144) 03/18/24 12:51 Sodium 139 mmol/L (136-145) 03/27/24 05:55 POC Potassium 3.3 mmol/L (3.3-5.0) 03/18/24 12:51 Potassium 4.2 mmol/L (3.5-5.1) 03/27/24 05:55 POC Chloride 97 mmol/L (101-112) L 03/18/24 12:51 Chloride 107 mmol/L (98-107) 03/27/24 05:55 Carbon Dioxide 28 mmol/L (21-32) 03/27/24 05:55 POC Total CO2 30 mmol/L (24-31) 03/18/24 12:51 Anion Gap 4 (3-11) 03/27/24 05:55 POC Anion Gap 14.0 mmol/L (16-25) L 03/18/24 12:51 POC BUN 43 mg/dl (7-18) H 03/18/24 12:51 BUN 22 mg/dl (6-23) 03/27/24 05:55 Creatinine 1.21 mg/dl (0.6-1.4) 03/27/24 05:55 POC Creatinine 1.9 mg/dl (0.6-1.3) H 03/18/24 12:51 Est Cr Clr Drug Dosing 69.0 ml/min 03/27/24 05:55 Est GFR ( Amer) 67.5 ml/min 03/27/24 05:55 Est GFR (Non-Af Amer) 58.2 ml/min 03/27/24 05:55 BUN/Creatinine Ratio 18.2 (10-20) 03/27/24 05:55 Glucose 93 mg/dl (70-99(Fasting)) 03/27/24 05:55 POC Glucose (other) 130 mg/dl (70-99) H 03/18/24 12:51 Estimat Average Glucose 123 mg/dl 03/20/24 05:59 Hemoglobin A1c 5.9 % (4.5-5.6) H 03/20/24 05:59 Lactate 1.4 mmol/L (0.4-2.0) 03/18/24 13:50 Calcium 9.2 mg/dl (8.6-10.3) 03/27/24 05:55 POC Ioniz Calcium Mary 1.27 mmol/l (1.12-1.32) 03/18/24 12:51 Magnesium 2.0 mg/dl (1.7-2.4) 03/18/24 11:54 Total Bilirubin 0.5 mg/dl (0.2-1.0) 03/27/24 05:55 AST 25 U/L (13-39) 03/27/24 05:55 ALT 31 U/L (7-52) 03/27/24 05:55 Alkaline Phosphatase 108 U/L (34-104) H 03/27/24 05:55 Troponin I High Sens 12.9 pg/ml (0-20) 03/18/24 12:36 C-Reactive Protein 0.56 mg/dl (0-0.5) H 03/27/24 05:55 Total Protein 6.0 gm/dl (6.0-8.3) 03/27/24 05:55 Albumin 3.3 gm/dl (3.4-5.0) L 03/27/24 05:55 Globulin 2.7 gm/dl (2.5-4.0) 03/27/24 05:55 Albumin/Globulin Ratio 1.2 (0.9-2) 03/27/24 05:55 Procalcitonin 0.80 ng/ml (0-0.5) H 03/18/24 11:54 Urine Color Yellow 03/18/24 15: Urine Appearance Clear (Clear) 03/18/24 15: Urine pH 5.5 (4.5-7.5) 03/18/24 15:26 Ur Specific [place] 1.018 (1.000-1.030) 03/18/24 15: Urine Protein Negative (Negative) 03/18/24 15: Urine Glucose (UA) Negative (Negative) 03/18/24 15: Urine Ketones Negative (Negative) 03/18/24 15: Urine Blood Trace (Negative) H 03/18/24 15:26 Urine Nitrite Negative (Negative) 03/18/24 15:26 Urine Bilirubin Negative (Negative) 03/18/24 15:26 Urine Urobilinogen Negative (Negative) 03/18/24 15:26 Ur Leukocyte Esterase 1+ (Negative) H 03/18/24 15:26 Urine WBC (Auto) 0-5 /hpf (0-5) 03/18/24 15:26 Urine RBC (Auto) 0-2 /hpf (0-2) 03/18/24 15:26 U Hyaline Cast (Auto) 6-10 /lpf (0-2) H 03/18/24 15:26 U Epithel Cells (Auto) 0-2 /hpf (0-2) 03/18/24 15:26 Urine Bacteria (Auto) None Seen (None Seen) 03/18/24 15:26 Impressions Chest X-Ray 03/18/24 11:44 XR chest 1V not portable CLINICAL HISTORY: infection TECHNIQUE: Single frontal radiograph of the chest was obtained. Comparison: Comparison is made to chest radiograph 09/27/2023 FINDINGS: Exam is limited by underpenetration. Cardiomegaly is noted. The aortic arch is calcified. The lungs are clear. No evidence of pleural effusion or pneumothorax. IMPRESSION: No acute abnormalities and in particular no radiographic evidence of pneumonia. ACT 112: Negative or not required by law. Electronically signed by: Doc Connors M.D. 03/18/2024 12:18 PM Abdomen/Pelvis CT 03/18/24 12:33 CT abd pelvis IV con only CLINICAL HISTORY: Cellullitis to groin, concern for Carol's TECHNIQUE: Helical axial images of the abdomen and pelvis were obtained and displayed. Automated dose lowering techniques and/or adjustment according to patient size were utilized for this exam. This exam was performed with intravenous contrast. CT DOSE: 1638.54 mGy.cm COMPARISON: Comparison is made to CT abdomen pelvis 09/05/2022 FINDINGS: Lower chest: Bibasilar atelectasis versus scarring is seen. Bronchial wall thickening is seen. Aortic valvular prosthesis is seen. Liver: Left hepatic cyst is seen. Gallbladder and biliary tree: No calcified gallstones. Normal caliber wall. No intra- or extrahepatic biliary ductal dilation. Pancreas: Unremarkable, no focal lesions. Spleen: Unremarkable. Adrenals: Unremarkable. Kidneys and ureters: Hepatic cysts are seen. Bladder: Unremarkable. Reproductive organs: Bilateral vasectomy clips are seen. Bilateral hydroceles are seen. Bowel: Unremarkable. Lymph nodes Retroperitoneal: Unremarkable. Pelvic: Unremarkable. Mesenteric: Unremarkable. Peritoneum: Normal. Vessels: Atherosclerotic calcifications are seen. Abdominal wall: Partially visualized subcutaneous fat stranding in the anterior scrotal wall as visualized. Bones: Degenerative changes in the visualized spine. IMPRESSION: Partially visualized subcutaneous fat stranding in the visualized portion of the scrotum, utbeo-fk-ehvs is highly limited. No subcutaneous emphysema or drainable fluid collection is seen ACT 112: Negative or not required by law. Electronically signed by: Doc Connors M.D. 03/18/2024 2:51 PM Scrotum Ultrasound 03/18/24 14:56 ULTRASOUND TESTES AND SCROTUM CLINICAL HISTORY: Scrotal edema COMPARISON STUDY: Scrotal ultrasound dated 12/16/2019. TECHNIQUE: Real-time, grayscale, and color Doppler sonography of the testes and scrotum is performed. Images are reviewed in the transverse and longitudinal planes. FINDINGS: The testes are normal in size and homogeneous in echotexture. The right testis measures 3.0 x 2.0 x 2.5 cm and the left testis measures 3.5 x 1.6 x 2.4 cm. No intratesticular mass is seen. Tubular ectasia of the rete testis is seen on the right. Testicular blood flow is normal and symmetric. Normal Doppler waveforms are identified in both testes. The epididymal heads are normal in appearance. A right epididymal head cyst measures 3 mm. A 1.9 cm epididymal head cyst versus spermatocele is seen on the left. There is a large right-sided hydrocele. No hydrocele is seen on the left and no varicocele is identified. IMPRESSION: 1. No acute sonographic abnormality is seen involving the testes or scrotum. 2. Large right-sided hydrocele. This was also seen in 2019. 3. Additional findings as above. ACT 112: Negative or not required by law. Electronically signed by: Ifeanyi Mcdonald M.D. 03/18/2024 5:00 PM Ordered Studies 03/18/24 12:33 CT abd pelvis IV con only Stat 03/18/24 14:56 US Testicles [US scrotum/testicle] Stat Hospital Course (1) Cellulitis of scrotum: started with progressively worsening rash with wounds/skin maceration in the scrotum and bilateral inguinal area for about 4 weeks duration. Has been using local antifungal and has had 2 courses of antibiotic starting with amoxicillin and cefdinir and also using lidocaine spray to decrease burning Scrotal cellulitis Groin wound--POA --CT ABD:Partially visualized subcutaneous fat stranding in the visualized portion of the scrotum, ykjku-ho-zgfr is highly limited. No subcutaneous emphysema or drainable fluid collection is seen --Scrotal USD:No acute sonographic abnormality is seen involving the testes or scrotum. Large right-sided hydrocele. This was also seen in 2020. -- Blood cultures negative --Wound culture grew E. coli --IV Rocephin, daptomycin transition to Cipro, linezolid Appreciate ID, urology input Continue wound care Pain control Plan to discharge home today Hypertension Likely due to pain Added amlodipine, metoprolol Monitor BP (2) Diaphragmatic paralysis: chronic and remains stable (3) Cor pulmonale: no acute symptoms and no acute fluid overload (4) Atrial fibrillation: rate is controlled continue with Eliquis for anticoagulation (5) Wound of groin: As per prior provider Patient is been evaluated by urology, do not feel that this is any type of carol's gangrene that would need surgical intervention and will continue to monitor Continue other medications as prescribed. Plan other significant medical condition as mentioned in H&P remain stable DVT Px: Eliquis CODE STATUS Full code Disposition Home Total Time Total Time Spent Total Time Spent (In Minutes): 55 minutes Discharge Plan Discharge Items Patient Disposition: Home - Self-Care Reason For Visit: GROIN CELLULITIS Discharge Diagnosis: Scrotal cellulitis Groin wound Activity: Per Instructions section Exercise/Sports: Wait until after follow-up appointment Non-emergency contact: Primary Care Provider Call non-emergency contact if: you have any medication questions, your symptoms worsen, your pain is concerning for you, you have a fever, your temperature is above 101.5, your wound has increased redness, your wound has increased drainage and your wound pain has increased Follow-up/Referrals: [facility] [Other] - 04/03/24 1:00 pm Chino Leavitt, [Primary Care Provider] - (Dr Leavitt's office is aware of your discharge. The [employer] office will contact you for a follow up appointment. ) Diet: Heart Healthy Addtl Attending Provider Instructions: Follow-up with your primary care physician Dr. Leavitt in 1 week Follow-up with wound clinic on April 03 at 1 PM as scheduled -- Complete the antibiotic course ciprofloxacin, linezolid as recommended by your infectious disease doctor--Last day of course 04/01/24 (for both antibiotics) --Continue wound care as recommended Seek immediate medical attention if your symptoms reoccur or worsen Please take all medications as instructed on discharge list below. Please call if you have any questions or problems. You can reach a [facility] hospitalist on duty at [facility] 24 hours a day by calling [phone] Pending Studies at Discharge: No Stand-Alone Forms: My [facility], Smoking Cessation Medications and DC Order Prescriptions: New linezolid 600 mg Tablet 600 mg PO BID Qty: 24 0RF amlodipine [Norvasc] 5 mg Tablet 2.5 mg PO QAM Qty: 30 0RF ciprofloxacin HCl 500 mg Tablet 500 mg PO BID Qty: 11 0RF hydromorphone 2 mg tablet 2 mg PO Q6H PRN (Reason: pain) Qty: 15 0RF sennosides-docusate sodium [Senokot-S] 8.6-50 mg Tablet 1 tab PO QAM Qty: 14 0RF Rx Instructions: Hold for diarrhea morphine 15 mg Tablet Extended Release 15 mg PO Q12H Qty: 14 0RF polyethylene glycol 3350 [Miralax] 17 gram Powder In Packet 17 g PO DAILY PRN (Reason: Constipation) Qty: 15 0RF Advanced Probiotic 625 mg (10 billion cell) Capsule 1 cap PO DAILY Qty: 15 0RF Continued tamsulosin 0.4 mg capsule 0.4 mg PO HS Qty: 90 3RF Rx Instructions: TAKE 1 CAPSULE AT BEDTIME Suflave 178.7-7.3-0.5 gram recon soln See Rx Instructions PO .COMPLEX Qty: 2 0RF Rx Instructions: orally; TAKE FIRST DOSE AT 6 PM AND SECOND DOSE 6 HOURS PRIOR TO PROCEDURE BIN: [id number] PCN: CN GROUP: [id number] Centrum Silver 0.4-300-250 mg-mcg-mcg tablet 1 tab PO QAM vxeblaibkij-X0-Ynbawisiz serr [Osteo Bi-Flex (5-Loxin)] 1,500-400-100 mg-unit-mg tablet 1 tab PO QAM betamethasone dipropionate 0.05 % cream 1 applic TOP DAILY PRN (Reason: skin irritation) Qty: 45 3RF omega 2-qjs-uce-fish oil [Fish Oil] 60-90-500 mg capsule 1 cap PO QAM spironolactone 25 mg tablet 25 mg PO DAILY metoprolol succinate 25 mg tablet extended release 24 hr 25 mg PO DAILY Eliquis 5 mg tablet 5 mg PO BID 90 Days Qty: 180 3RF Rx Instructions: hold 48 hours prior to surgery torsemide 20 mg Tablet 40 mg PO QAM ascorbic acid (vitamin C) [Vitamin C] 250 mg Tablet 250 mg PO QAM cyanocobalamin (vitamin B-12) [Vitamin B-12] 1,000 mcg tablet 5,000 mcg PO QAM ferrous sulfate [iron] 325 mg (65 mg iron) Tablet 325 mg PO QAM atorvastatin 40 mg tablet 40 mg PO HS ibuprofen 200 mg Tablet 400 mg PO Q6H PRN (Reason: FEVER/PAIN) Mitoq 1 tab PO QAM Rx Instructions: supplement potassium chloride 10 mEq tablet,ER particles/crystals 10 meq PO QAM duloxetine 30 mg capsule,delayed release(DR/EC) 60 mg PO HS Discontinued amoxicillin 500 mg capsule 500 mg PO TID Rx Instructions: Start Date 03/15/24 x10 day supply Discharge Orders: Discharge Order (Routine); Ordered 03/27/24 Ordered By: Tommie Horta Admission Data Admit Date/Time: 03/18/24 20:25 Attending Provider: Tommie Horta Admit Provider: Polo Arriaga Primary Care Provider: Chino Leavitt Other Providers: Polo Arriaga; Fortunato Meza; Sahil Souza; Aleksander Abreu I.; Navneet Walters II; Janett Ruiz; Avni Jason; Brant Carreno; Yuko Gibbs; Rashawn Jason IRB Approved Study,Kady
[2024-03-27] MEDS: amLODIPine BESYLATE 5 MG TAB PO SCH (17:23)
[2024-03-28] MEDS: amLODIPine BESYLATE 5 MG TAB PO ONE (01:07)
[2024-03-28] MEDS: HYDROmorphone INJ 2 MG/ML SYR/VIAL IV PRN (07:22)
--- NOTE | 2024-03-28 11:58 | Hospitalist Progress Note ---
Date of Service March 28, 2024 Assessment & Plan (1) Cellulitis of scrotum: Plan: started with progressively worsening rash with wounds/skin maceration in the scrotum and bilateral inguinal area for about 4 weeks duration. Has been using local antifungal and has had 2 courses of antibiotic starting with amoxicillin and cefdinir and also using lidocaine spray to decrease burning Scrotal cellulitis Groin wound--POA --CT ABD:Partially visualized subcutaneous fat stranding in the visualized portion of the scrotum, czoki-aj-xqrp is highly limited. No subcutaneous emphysema or drainable fluid collection is seen --Scrotal USD:No acute sonographic abnormality is seen involving the testes or scrotum. Large right-sided hydrocele. This was also seen in 2019. -- Blood cultures negative --Wound culture grew E. coli --IV Rocephin, daptomycin transition to Cipro, linezolid Appreciate ID, urology input Continue wound care Pain control Advised to follow-up with wound clinic as outpatient Hypertension Likely due to pain Added amlodipine, metoprolol Monitor BP BP better (2) Diaphragmatic paralysis: Plan: chronic and remains stable (3) Cor pulmonale: Plan: no acute symptoms and no acute fluid overload (4) Atrial fibrillation: Plan: rate is controlled continue with Eliquis for anticoagulation (5) Wound of groin: Plan: As per prior provider Patient is been evaluated by urology, do not feel that this is any type of lyle's gangrene that would need surgical intervention and will continue to monitor Continue other medications as prescribed. Plan other significant medical condition as mentioned in H&P remain stable DVT Px: Eliquis CODE STATUS Full code Disposition Home Admission and Anticipated Discharge Date Admission Date: March 18, 2024 Subjective Patient is seen and examined at bedside Scrotal pain much improved no new complaints Denies any chest pain, dyspnea, nausea, vomiting, abdominal pain Review of Systems Review of Systems: All systems reviewed & are unremarkable except as noted in Subjective Physical Exam Physical Exam: Physical Exam: Vitals signs as noted above General Appearance:Obese, no apparent distress Head: normocephalic, Atraumatic Eyes: normal inspection, EOMI Neck: supple, Trachea midline Respiratory/Chest: Normal breath sounds, CTA, No accessory muscle use Cardiovascular: S1, S2, +murmur Abdomen/GI:Soft, Non tender, Bowel sounds present : Scrotal/groin erythema, skin breakdown Extremities/Musculoskeletal:normal inspection, Trace edema Neurologic/Psych:AAOX3, grossly no focal neurological deficits Skin: normal color, warm Results & Data Results & Data Vital Signs (Past 12 Hours) Vital Signs Temp Pulse Resp BP Pulse Ox O2 Del Method 03/28/24 11:44 36.4 C L 16 156/83 H 95 Room Air 03/28/24 07:49 36.4 C L 62 16 162/79 H 94 Room Air 03/28/24 04:36 36.4 C L 55 L 20 147/70 H 94 Nasal Cannula, BiPAP 03/28/24 01:08 36.5 C 60 20 169/94 H 92 BiPAP
[2024-03-29] MEDS ORDERED: amLODIPine BESYLATE 5 MG TAB PO SCH (09:00)
== END 2024-03-28 14:58 | disposition home or self-care (01) | DRG 728 ==
LOC: ED 11:19 → SUATTDRO 20:25 → 2W 20:25

== ENCOUNTER 2024-10-07 08:52 | Observation (INO) ==
--- NOTE | 2024-09-25 13:20 | PAT Medication Instructions ---
Medication Instructions Date of Service September 25, 2024 Home Medications Medication Instructions Recorded tamsulosin 0.4 mg capsule 0.4 mg PO HS #90 caps 12/19/22 betamethasone dipropionate 0.05 % 1 applic topical DAILY PRN skin 12/20/22 topical cream irritation #45 grams glucosamine [id number]-Hyetucyox ellis 1,500 mg-400 unit-100 mg tablet (Osteo Bi- Flex (5-Loxin)) 1 tab PO QAM xwwaucsv-odx-eihvu acid 0.4 mg-lycopene 300 mcg-lutein 250 mcg tablet (Centrum Silver) 1 tab PO QAM ibuprofen 200 mg tablet 400 mg PO Q6H PRN Mitoq 1 tab PO QAM omega 1-eps-bvg-fish oil 60 mg-90 mg-500 mg capsule (Fish Oil) 1 cap PO UD ascorbic acid (vitamin C) 250 mg tablet (Vitamin C) 250 mg PO UD torsemide 20 mg tablet 40 mg PO QAM tamsulosin 0.4 mg capsule 0.4 mg PO HS betamethasone dipropionate 0.05 % topical cream 1 applic topical DAILY PRN atorvastatin 40 mg tablet 40 mg PO QAM spironolactone 25 mg tablet 25 mg PO QAM potassium chloride 10 mEq tablet,extended release(part/cryst) 10 meq PO QAM amlodipine 2.5 mg tablet 2.5 mg PO QAM aspirin 81 mg capsule 81 mg PO QAM clopidogrel 75 mg tablet 75 mg PO QAM diclofenac sodium 1 % topical gel (Voltaren Arthritis Pain) 2 g topical QID PRN metolazone 5 mg tablet 5 mg PO UD PRN zolpidem 6.25 mg tablet,extended release,multiphase (Ambien CR) 6.25 mg PO HS PRN ASK your surgeon for instructions ibuprofen 200 mg tablet 400 mg PO Q6H PRN diclofenac sodium 1 % topical gel (Voltaren Arthritis Pain) 2 g topical QID PRN ASK your prescriber and surgeon aspirin 81 mg capsule 81 mg PO QAM clopidogrel 75 mg tablet 75 mg PO QAM(in order for spinal or epidural anesthesia, clopidogrel (Plavix) needs to be stopped 7 days before surgery. Please check if okay with doctor that prescribes this to you) STOP taking 2 weeks before surgery (or as soon as possible if surgery is within 2 weeks) glucosamine YGn-E3-Isfdidstp ellis 1,500 mg-400 unit-100 mg tablet (Osteo Bi- Flex (5-Loxin)) 1 tab PO QAM omega 1-raj-kkw-fish oil 60 mg-90 mg-500 mg capsule (Fish Oil) 1 cap PO UD Mitoq 1 tab PO QAM STOP taking 24 hours before surgery betamethasone dipropionate 0.05 % topical cream 1 applic topical DAILY PRN DO NOT take the morning of surgery eisygsio-wdl-opapq acid 0.4 mg-lycopene 300 mcg-lutein 250 mcg tablet (Centrum Silver) 1 tab PO QAM ascorbic acid (vitamin C) 250 mg tablet (Vitamin C) 250 mg PO UD torsemide 20 mg tablet 40 mg PO QAM spironolactone 25 mg tablet 25 mg PO QAM potassium chloride 10 mEq tablet,extended release(part/cryst) 10 meq PO QAM metolazone 5 mg tablet 5 mg PO UD PRN Take morning of surgery With a small sip of water, OTHERWISE NOTHING TO EAT OR DRINK AFTER MIDNIGHT: atorvastatin 40 mg tablet 40 mg PO QAM amlodipine 2.5 mg tablet 2.5 mg PO QAM Take evening before surgery tamsulosin 0.4 mg capsule 0.4 mg PO HS zolpidem 6.25 mg tablet,extended release,multiphase (Ambien CR) 6.25 mg PO HS PRN(if needed) Other Notes If you have any questions please call us at [phone] or [phone] or [phone] or [phone]
--- NOTE | 2024-10-02 14:49 | Anesthesiology Consultation ---
Date of Service October 02, 2024 Assessment & Plan (1) Encounter for pre-operative examination: Chart Review Chart Review: Acceptable Risk for Surgery and Patient seen in Pre Admission Testing - Case discussed with Dr. Stock- did instruct patient to bring BiPAP DOS- otherwise patient can proceed as scheduled Last dose of Plavix was in the AM on 09/30/24- okay for SAB per Dr Stock Patient is NOT an ideal OPJ candidate (currently 23 hour obs) Per PAT appt on 10/02/24, no recent illness/disease exposures, illness related symptoms, or recent illness/disease positive tests. Will leave to surgeon's discretion if preop Covid testing needed Patient seen by cardio 09/05/24= seen for routine cardiology follow up. Feels well. Planning for upcoming elective knee replacement. Continue current meds... Metoprolol previously discontinued due to bradycardia/pauses, chronically in atrial fibrillation asymptomatic, s/p Watchmans implantation. Seven day Zio monitor to be obtained at next evaluatin. Possible future need for permanent pacemaker implantation discussed. No over cardiac contraindications to future elective TKA. Recommend uninterrupted continuations of aspirin 81mg/day and amlodipine. Okay to hold Plavix 5-7 days prior to procedure. Hold toresemike and spironolactone AM of surgery, resume post op as hemodynamics permit. Patient seen by pulm 08/19/24= seen for routine follow up... feels he is doing a little better. Can lie flat for more prolonged periods without a smothering sensation. Can voluntarily breath without paradoxical breathing suggesting diaphragm is recovering some strength. Sleeping with BIPAP... consider having knee replaced in a couble of months. Slowly improving in terms of his diaphragm function as assessed by his ability to lay flat without paradoxical breathing. 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 He is not only tolerating the nocturnal BIPAP but is happy to be using it in terms of his sleep quality. Will d/c Cymbalta (no dramatic response). Will plan to see in one year Teaching & Discussion Pre-Anesthesia Teaching/Discussion Notes: Instructed NPO after midnight before surgery,except medications with 15 cc of water. Medication instructions provided according to the PAT guidelines. History Surgery Operation Date: 10/07/24 11:55 Proposed Procedures p Left Total Knee Arthroplasty - Johnny Espino, Height/Weight Height: 5 ft 9 in Weight: 126.6 kg Allergies Allergy/AdvReac Type Severity Reaction Status Date / Time No Known Allergies Allergy Unknown Verified 09/23/24 15:28 Medications Home Medications Medication Instructions Recorded Confirmed Last Taken glucosamine [id number] 1 tab PO QAM 02/19/19 09/23/24 03/18/24 ellis 1,500 mg-400 unit-100 mg tablet (Osteo Bi-Flex (5-Loxin)) [id number]-[id number]-gmyth acid 0.4 1 tab PO QAM 02/19/19 09/23/24 03/18/24 mg-lycopene 300 mcg-lutein 250 mcg tablet (Centrum Silver) ibuprofen 200 mg tablet 400 mg PO Q6H PRN FEVER/PAIN 08/31/21 09/23/24 03/18/24 Mitoq 1 tab PO QAM 11/30/21 09/23/24 03/18/24 omega 5-ncx-bmt-fish oil 60 mg-90 1 cap PO UD 02/24/22 09/23/24 03/18/24 mg-500 mg capsule (Fish Oil) ascorbic acid (vitamin C) 250 mg 250 mg PO UD 09/15/22 09/23/24 03/18/24 tablet (Vitamin C) torsemide 20 mg tablet 40 mg PO QAM 09/15/22 09/23/24 03/18/24 tamsulosin 0.4 mg capsule 0.4 mg PO HS #90 caps 12/19/22 09/23/24 03/17/24 betamethasone dipropionate 0.05 % 1 applic topical DAILY PRN skin 12/20/22 09/23/24 Unknown topical cream irritation #45 grams atorvastatin 40 mg tablet 40 mg PO QAM 09/19/23 09/23/24 03/17/24 spironolactone 25 mg tablet 25 mg PO QAM 11/29/23 09/23/24 03/18/24 potassium chloride 10 mEq 10 meq PO QAM 03/18/24 09/23/24 03/18/24 tablet,extended release(part/cryst) amlodipine 2.5 mg tablet 2.5 mg PO QAM 09/23/24 09/23/24 Unknown aspirin 81 mg capsule 81 mg PO QAM 09/23/24 09/23/24 Unknown clopidogrel 75 mg tablet 75 mg PO QAM 09/23/24 09/23/24 Unknown diclofenac sodium 1 % topical gel 2 g topical QID PRN Pain 09/23/24 09/23/24 Unknown (Voltaren Arthritis Pain) metolazone 5 mg tablet 5 mg PO UD PRN Weight Gain 09/23/24 09/23/24 Unknown zolpidem 6.25 mg tablet,extended 6.25 mg PO HS PRN Sleep 09/23/24 09/23/24 Unknown release,multiphase (Ambien CR) Past Medical History Medical History (Updated 10/03/24 @ 09:24 by Theresa Gill PAMiguel ÁngelC) Aortic stenosis S/p TAVR 01/2024 - had 7 second pause in HR during TAVR- was temporarily paced- follows with cardio- metoprolol has since been d/alireza- discussed possible pacemaker in future - Follows with [facility] cardio/Dr. Rosa Apnea, sleep BIPAP Atrial fibrillation s/p Watchman's device 05/2024 Bilateral nephrolithiasis no recent issues BPH (benign prostatic hyperplasia) CAD (coronary artery disease) mild non obstructive CAD per 2021 and 11/2023 cath per cardio records Carotid artery stenosis <50% stenosis to bilateral ICAs per 09/2023 carotid doppler Complex renal cyst Per ultrasound, annual surveillance being done Congestive heart failure EF 60-64% on 07/02/24 ECHO COPD (chronic obstructive pulmonary disease) controlled, stable per pt. Cor pulmonale follows with [facility] puljg and [facility] cardio Diaphragm paralysis - Bilateral diaphragm paralysis - Per records - possibly due to neuritis or neuropathy related to previous sepsis in 2020 - Follows with [facility], diagnosed with paralyzed diaphragm, pt states he uses a BIPAP at night Exertional shortness of breath Chronic and stable since 2020 History of COVID-19 11/2021- was asymptomatic Hx of squamous cell carcinoma Hyperlipidemia Hypertension Idiopathic neuropathy mild per pt, feet bilat Iron deficiency anemia no recent issues- no longer needs PO iron supplementation Mitral regurgitation Mild to moderate per 06/2024 ECHO Orthopnea - previous history (in the past patient had needed BiPAP-required semi- recumbent position for previous hernia repair)- patient states he can lay flat without significant issues as of PAT appt 10/02/24 Pre-diabetes Presence of Watchman left atrial appendage closure device 05/16/24, [facility]; dr. rees, [facility] Pulmonary hypertension mild per 05/2023 echo: PASP 46 mmHg Restrictive lung disease Steatosis, liver Exercise / Class Metabolic Activity III < 4 Walking/Shop/Light housework (1 flight of stairs - mild SOB, no chest pain ) Past Family History Family History Mother Breast cancer Hypertension Brother Accident caused by electric current Father COPD (chronic obstructive pulmonary disease) Stroke ?? Other No family history of adverse response to anesthesia Denies family history of Ovarian cancer Prostate cancer Myocardial infarction Lung cancer Colorectal cancer Past Surgical History Surgical History H/O umbilical hernia repair Open Repair Incarcerated Umbilical Hernia (09/19/22): MAC at [facility]-required semi-recumbent position per records History of arthroscopic knee surgery left knee History of biopsy Penile excisional biopsy- showed squamous cell carcinoma History of colonoscopy with polypectomy History of tooth extraction History of vasectomy Hx of cardiac cath 11/04/21 ([facility]) > mild, non-obstructive CAD. Moderate aortic stenosis based on invasive AV assessment (calculated KATHRYN 1.5cm2, MG 35mmhg)--Patient reports this was done while he was awake d/t respiratory concerns. Hx of prior ablation treatment L4-5, S1 S/P AVR 01/2024, [facility]; used TAVR procedure S/P cystoscopy with ureteral stent placement 12/2021 S/P ureteral stent placement duplicate Past Anesthesia History No Hx of Anesthesia Complications and No Family Hx of Anesthesia Complications History of PONV No Hx of PONV and No Hx of Motion Sickness Social History Smoking Status: Former smoker tobacco type: cigarettes Do You Dip or Chew Tobacco: No Smoking End Date: around 1988 Hx Alcohol Use: Yes Alcohol type: beer, wine and hard liquor alcohol intake frequency: holidays/special occasions only Hx Substance Use: No substance use type: does not use Review of Systems - Chronic MANNING - at [facility] Patient denies chest pain, shortness of breath rest, reflux, cough, wheezing, palpitations. No hx of seizures, stroke, ND. No hx of blood clots or blood transfusions Physical Exam Vital Signs VITALS BP 114/72 P 51 TEMP 97.8 SP02 92% RESP 16 Constitutional no acute distress ENMT Mouth: no TMJ clicking Thyromental Distance: > or= 3.5 Finger Breadths (3.5) Mallampati Class: III Missing molar Neck neck extension not limited Respiratory normal respiratory effort; no respiratory distress Auscultation: lungs clear to auscultation bilaterally; no wheezes Cardiovascular Heart Sounds: + murmur (II/ murmur ) Vessels: + carotid bruit (bilateral ) Irregularly irregular rhythm- rate controlled Musculoskeletal Spine: + pain with cervical ROM Extremities: extremities normal to inspection Psychiatric Orientation: alert Lab Results Anesthesia Preop Results Results Anesthesia Widget: WBC 7.26 K/ul (4.8-10.8) 10/02/24 Hgb 15.9 g/dl (14.0-18.0) 10/02/24 Hct 47.2 % (42.0-52.0) 10/02/24 Plt 180 K/uL (130-400) 10/02/24 Na 140 mmol/L (136-145) 10/02/24 K 3.3 mmol/L (3.5-5.1) L 10/02/24 Cl 100 mmol/L (98-107) 10/02/24 CO2 31 mmol/L (21-32) 10/02/24 BUN 50 mg/dl (6-23) H 10/02/24 Creat 1.81 mg/dl (0.6-1.4) H 10/02/24 Glucose Level 111 mg/dl (70-99(Fasting)) H 10/02/24 PT 11.3 Seconds (9.0-12.0) 10/02/24 PTT 26 Seconds (21-31) 10/02/24 INR 1.0 (0.9-1.1) 10/02/24 HA1c 5.6 % (4.5-5.6) 10/02/24 Blood Type A Positive 10/02/24 Antibody Screen NEGATIVE 10/02/24 Testing Laboratory Results Elevated creatinine (Creat 1.89 in 05/2024 (1.21 in 03/2024)- discussed with Dr. Sandip vernon to proceed) 10/02/24= GFR: 38 Electrocardiogram Date: 10/02/24 Findings: + AFIB @ (73bpm ) Nonspecific ST and T was abnormality When compared to EKG from March 21, 2024- no significant change was found per cardio Chest X-Ray Date: 10/02/24 Findings: + NAD FINDINGS: Heart size and pulmonary vasculature are normal. No effusion or consolidation. There is prior cardiac valve repair Echocardiogram Date: 07/02/24 EF: 60-64% LV Function: normal Atrial fibrillation during examination Left atrial appendage closure device is identified, #31mm Watchman device Adequate closure of the appendage orifice with minimal to no flow around the device is present No left atrial appendage mass or thrombus Patient is s/p TAVR with Robert type prosthetic valve. Significant AV prosthesis regurgitation is absent. AV prosthesis stenosis is absent Mild to moderate MR Moderate TR Proximal ascending thoracic aorta is mildly enlarged Cardiac Catheterization Date: 11/27/23 Distal LMCA 20% stenosis. Similar to prior angiogram. Otherwise angiographically normal coronaries Other Testing Event monitor 01/18/24= CONCLUSIONS: Study indication heart block. Patient triggered events were associated with atrial fibrillation with controlled to slow ventricular response rates when artifact did not preclude rhythm analysis. There was one short asymptomatic run of nonsustained VT lasting 2.6 seconds. There were several pauses longer than 3 seconds up to 4.1 seconds which were asymptomatic. The longest of these occurred in the early likely non waking morning hours. AFib was present with a 100% burden overall and a slow ventricular response rate of 56 beats per minute PVCs were occasionally present at 2.4% overall Carotid doppler 10/02/23= <50% stenosis of bilateral ICAs.
[~2024-10-07 08:52] MED LIST: ATROPINE SULFATE 0.1 MG/ML 10ML SYR IV PRN; BUPIVACAINE 0.25% PF 30 ML VIAL ONE; BUPIVACAINE 0.5 % 5 MG/1 ML PF 10ML VIAL ONE; DexMEDEtomidine HCL IV 100 MCG/ML VIAL IV ONE; ONDANSETRON INJ 2 MG/ML 2 ML VIAL IV PRN; ePHEDrine sulfate 50 MG/ML AMP IV PRN; fentaNYL citrate PF 100 MCG/2 ML VIAL IV PRN
[2024-10-07] MEDS: ACETAMINOPHEN 500 MG TAB PO SCH ×2 (09:27→22:33)
[2024-10-07] MEDS: dexAMETHasone**PF** 10 MG/ML VIAL IV SCH (09:27)
[2024-10-07] MEDS: GABAPENTIN 300 MG CAP PO SCH (09:28)
[2024-10-07] MEDS: FAMOTIDINE 20 MG TAB PO SCH (09:28)
[2024-10-07] MEDS: LR 60ML/HR IV SCH (09:28)
[2024-10-07] MEDS ORDERED: KETAMINE HCL 10MG/ML SYR ONE (09:38)
[2024-10-07] MEDS ORDERED: PROPOFOL IV EMULSION 10 MG/ML 20 ML VIAL IV ONE (09:38)
[2024-10-07] MEDS ORDERED: LIDOCAINE 2% 2 ML VIAL/AMP(20MG/ML) INFIL ONE (09:38)
[2024-10-07] MEDS ORDERED: ONDANSETRON INJ 2 MG/ML 2 ML VIAL ONE (09:38)
[2024-10-07] MEDS ORDERED: MIDAZOLAM HCL 1 MG/ML 2ML VIAL ONE (09:58)
[2024-10-07] MEDS ORDERED: GLYCOPYRROLATE 0.2 MG/ML VIAL ONE (09:58)
[2024-10-07] MEDS: LR 500ML BOLUS, THEN 15ML/HR IV SCH (10:00)
--- NOTE | 2024-10-07 10:22 | History & Physical Bridge Note ---
Date of Service October 07, 2024 History & Physical Bridge Note I have examined the patient, reviewed the History & Physical and in the interval since the performance of the History & Physical I have noted the following changes of clinical significance: no changes noted
[2024-10-07] MEDS: TRANEXAMIC ACID 1,000 MG **IV Pre-op IV SCH (10:56)
[2024-10-07] MEDS ORDERED: ROCURONIUM BROMIDE 10 MG/ML 5 ML VIAL IV ONE (13:00)
[2024-10-07] MEDS ORDERED: fentaNYL citrate PF 100 MCG/2 ML VIAL ONE (13:07)
[2024-10-07] MEDS: ROPIV 0.5% 246mg, Ketorolac 30mg, EPINEPHrine 0.5mg in NSS INFIL SCH (13:31)
[2024-10-07] MEDS ORDERED: SUGAMMADEX SODIUM 200 MG/2 ML VIAL IV ONE (14:05)
--- NOTE | 2024-10-07 14:07 | Operative Report ---
PG Post Operative Report Pre & Post Diagnosis Operation Date: 10/07/24 11:00 Pre-Op Diagnosis: Left Knee Arthritis Post-Op Diagnosis: Left Knee Arthritis I identified the patient and participated in the time-out.: Yes Procedure Operation Date: 10/07/24 11:00 Actual Procedures p Left Total Knee Arthroplasty(Left) - Johnny Espino DO Surgeon Johnny Espino DO Building And Grounds Supervisor Jose Juan Zuniga PA-C Estimated Blood Loss 50 Findings Consistent with Post-Op Diagnosis Specimens Left femoral and tibial bone Description of Procedure Implants used: I used a Pratibha Persona total knee arthroplasty system with a size 10 femur, E tibia, 31 oval patella, and a size 14 CPS polyethylene bearing. All components were cemented in place with Biomet cement. Josias arrived [facility] for the above procedure. He was seen in the preoperative holding area and the operative extremity was identified and signed. He was given a preoperative antibiotic, TXA, a spinal anesthetic and an adductor nerve block. He was taken back to the operating room and laid on the table in supine position. He was given basic sedation. The operative knee was then prepped and draped in sterile fashion. A timeout was done, and the patient and the operative extremity was properly identified. A midline incision was made directly over the patella. Dissection was taken down to the extensor mechanism. A medial parapatellar arthrotomy was used. The medial retinaculum was released and the fat pad was mostly excised. The knee was flexed and the ACL, PCL, and meniscus were removed. A drill was sent down the center of the femoral canal followed by an intramedullary juice. Off that juice a distal femoral cutting block was placed. 9 mm was resected off the distal femur at 5 of valgus. A posterior referencing AP sizing guide was then placed on the distal femur. The femur measured to be a size 10. 2 drill holes were placed in 3 of external rotation. A 4-in-1 cutting block was then impacted into place. Anterior, posterior, and chamfer cuts were then made. The proximal tibia was then exposed. An external tibial alignment guide was placed. A tibial cut guide was then anchored in place and the proximal tibia was then resected. The posterior aspect of the knee was then opened up and any additional meniscus fragments and osteophytes were removed. The tibia measured to be a size E. The tibial plate was then placed in the appropriate rotation and the tibia was drilled and punched. Trial components were then placed. I used a size 14 CPS polyethylene insert. The knee was brought through a full range of motion and felt to be stable. The peg holes for the femoral component were then drilled. The patella was then everted and 9 mm was resected off the posterior aspect of the patella. The patella measured to be a size 31 oval. 3 peg holes were then drilled. A trial patella was placed. The knee was once again brought through a full range of motion and felt to be stable. Trial components were then removed. The surrounding soft tissues were injected with 100 cc of an orthopedic pain control cocktail. All components were then cemented into place with Biomet cement. The final polyethylene insert was then snapped into place. Once cement was dry the tourniquet was deflated. Hemostasis was obtained. A dilute betadyne lavage was then done for 3 minutes. The joint was then irrigated with normal saline solution. The medial parapatellar arthrotomy was then closed with #1 Vicryl suture. The skin was closed with 2-0 Vicryl, 3-0V lock suture, and lety. A soft compressive dressing was placed. He was then transferred to a hospital bed and taken to the postanesthesia care unit in stable condition. He tolerated the procedure well. Jose Juan Zuniga PA-C, was present for the entire procedure. He was critical for patient positioning, prepping, draping, retraction exposure, wound closure and application of sterile dressing. I attest to the content of the Intraoperative Record and any orders documented therein. Any exceptions are noted below.
--- NOTE | 2024-10-07 14:45 | XRay Report ---
XR knee LT 1 or 2V routine CLINICAL HISTORY: Surgical Post Op COMPARISON: 07/08/2020 FINDINGS: Interval left knee prosthesis shows no hardware complication. There is expected soft tissu e gas. Skin lety are present. IMPRESSION: Unremarkable postoperative exam. ACT 112: Negative or not required by law. Electronically signed by: Aroldo Sheth M.D. 10/07/2024 2:43 PM
--- NOTE | 2024-10-07 15:05 | Anesthesiology Progress Note ---
Date of Service October 07, 2024 Anesthesia Post Procedure Vital Signs Vital Signs: Temp Pulse Pulse Resp BP BP Pulse Ox 10/07/24 14:55 94 H 17 109/78 94 10/07/24 14:45 68 21 120/80 93 10/07/24 14:35 63 15 134/80 94 10/07/24 09:26 36.5 C 73 20 152/93 H 96 O2 Del Method O2 Flow Rate 10/07/24 14:55 Oxymask 3 10/07/24 14:45 Oxymask 6 10/07/24 14:35 Oxymask 6 10/07/24 09:26 Room Air Pain Intensity Left Knee: Pain Intensity: 2 Transfer of Care Handoff Completed per policy Notes Mental Status: alert / awake / arousable Patient Amnestic to Procedure: Yes Nausea / Vomiting: adequately controlled Pain: adequately controlled Airway Patency, RR, SpO2: stable & adequate BP & HR: stable & adequate Hydration State: stable & adequate Neuraxial Anesthesia: was administered and sensory block is resolving Anesthetic Complications: no major complications apparent and Pt Satisfied with anesthetic care Notes: will plan to admit patient to monitored floor given h/o bilateral phrenic nerve paralysis with decreased pulmonary status after general anesthetic with intubation and muscle relaxant use. Patient baseline on bipap overnight and has sob with activity but no baselin 02 use. Plan to have hospitalist team provide further care of his chronic medical conditions
[2024-10-07] MEDS ORDERED: MAGNESIUM HYDROXIDE SUSP 30 ML UDC PO PRN (16:07)
[2024-10-07] MEDS ORDERED: HYDROmorphone INJ 0.5 MG/0.5 ML SYR IV PRN (16:07)
[2024-10-07] MEDS ORDERED: NALOXONE HCL 0.4 MG/1 ML VIAL/CARP IV PRN (16:07)
[2024-10-07] MEDS ORDERED: ONDANSETRON INJ 2 MG/ML 2 ML VIAL IV PRN (16:07)
[2024-10-07] MEDS ORDERED: bisacodyL 10 MG SUPP PR PRN (16:07)
[2024-10-07] MEDS ORDERED: METOCLOPRAMIDE HCL INJ 5 MG/ML 2 ML VIAL IV PRN (16:07)
[2024-10-07] MEDS: ORTHO JOINT ANESTHETIC ONE (16:11)
[2024-10-07] MEDS: ceFAZolin 3000MG 3,000 MG/72.5 ML BAG IV SCH (16:12)
[2024-10-07] MEDS: TRANEXAMIC ACID 1,000 MG **IV Intra-op IV SCH (16:12)
[2024-10-07] MEDS: KETOROLAC TROMETHAMINE 15 MG/ML VIAL IV SCH (16:38)
--- NOTE | 2024-10-07 17:33 | Hospitalist Consultation ---
Date of Consultation October 07, 2024 Assessment & Plan (1) Left knee DJD: This is a 73 y/o male with permanent atrial fib s/p Watchman May 2024, severe AoS s/p TAVR January 2024, CARRI on BiPAP therapy, bilateral phrenic nerve diaphragmatic paralysis, pulmonary HTN, mild non-obstructive CAD, combined systolic and diastolic CHF, HTN, FORREST, and other history as outlined below who underwent left TKR today by Dr. Espino. Pt being observed overnight due to history of bilateral phrenic nerve paralysis with decreased pulmonary function after anesthesia in the past. - Observe on med telemetry - Labs in the AM - Pain control, ambulation/activity per primary team. (2) CARRI (obstructive sleep apnea): Chronic, stable Pt brought BiPAP from home - will use tonight (3) Diaphragmatic paralysis: Improving overall Will monitor respiratory status closely overnight (4) Non-occlusive coronary artery disease: Chronic, stable Denies chest pain or other cardiac symptoms at present Resume Plavix as soon as okay with surgeon, continue aspirin uninterrupted Plan Pt seen and reviewed with collaborating physician, Dr. Miller. Plan of care discussed and as outlined above. Thank you for this consultation. We will continue to follow with you. A [facility] is available 27/03 via [employer]. Please don't hesitate to reach out with questions. I spent a total [id number] coordinating, documenting, and providing care for this patient excluding time spent in the performance of separately billed services or time spent by another provider/QHP. Consuelo Thomas PA-C Supervising Physician Co-Signing Physician Notes 73 yo M w/ pAfib s/p Watchman procedure May 2024, severe status post TAVR in January 2024, CARRI on BPAP, other medical condition was seen and examined as a medical consult after left TKR today. Patient is hemodynamically stable, reports operative site pain under control. Patient is on aspirin and Plavix, continue with aspirin, resume Plavix as soon as possible. Labs in AM, monitor for blood loss anemia. On exam GENERAL: Alert and oriented x3. NAD, on RA. HEENT: No pallor, no icterus. Pupils equal, round and reactive to light. Oral mucosa moist. NECK: No JVD, no neck masses. HEART: S1 and S2 heard. irregular rate and rhythm. No murmur, no gallop. RESPIRATORY SYSTEM: Normal AP diameter. No accessory muscle use. No wheezing, no crackles. ABDOMEN: Soft, bowel sounds present, nontender, no distention. CENTRAL NERVOUS SYSTEM: No facial droop. Speech is clear. Obeys simple commands. Moves extremities. EXTREMITIES: No edema, no erythema seen. Left knee w/ dressing c/d/i. Distal NV status wnl. I have seen and examined the patient and have discussed the case with the provider above. I agree with the assessment and plan as stated. Time spent: 15 min. History of Present Illness Reason for Consultation: post-operative medical management Requesting Physician: Dr. Johnny Espino Attending Physician: Johnny Espino, History of Present Illness This is a 73 y/o male with permanent atrial fib s/p Watchman May 2024, severe AoS s/p TAVR January 2024, CARRI on BiPAP therapy, bilateral phrenic nerve diaphragmatic paralysis, pulmonary HTN, mild non-obstructive CAD, combined systolic and diastolic CHF, HTN, FORREST, and other history as outlined below who underwent left TKR today by Dr. Espino. Original plan for anesthesia was [facility]. However, due to delay in time of spinal administration and procedure start time, decision made to proceed with GA with LMA. Due to pt's history of bilateral phrenic nerve paralysis with decreased pulmonary status after general anesthetic with intubation and muscle relaxant use, pt was referred for observation on a monitored floor overnight and medicine was consulted to assist with management of pt's chronic conditions post-operatively. Currently, pt is doing well post-operatively. He denies significant knee pain at present but notes that he hasn't been out of bed yet. He has a sore throat from the intubation, but denies chest pain, palpitations, dyspnea, nausea, vomiting, unusual numbness or tingling in LE. His post-operative pain is currently well- controlled. He is tolerating dinner without issue. Allergies Allergy/AdvReac Type Severity Reaction Status Date / Time No Known Allergies Allergy Unknown Verified 10/07/24 09:31 Home Medications Medication Instructions Recorded Confirmed Type glucosamine [id number] 1 tab PO QAM 02/19/19 10/07/24 History ellis 1,500 mg-400 unit-100 mg tablet (Osteo Bi-Flex (5-Loxin)) sttfomyc-pts-mikvs acid 0.4 1 tab PO QAM 02/19/19 10/07/24 History mg-lycopene 300 mcg-lutein 250 mcg tablet (Centrum Silver) ibuprofen 200 mg tablet 400 mg PO Q6H PRN FEVER/PAIN 08/31/21 10/07/24 History Mitoq 1 tab PO QAM 11/30/21 10/07/24 History omega 4-wjq-uqd-fish oil 60 mg-90 1 cap PO UD 02/24/22 10/07/24 History mg-500 mg capsule (Fish Oil) ascorbic acid (vitamin C) 250 mg 250 mg PO UD 09/15/22 10/07/24 History tablet (Vitamin C) torsemide 20 mg tablet 40 mg PO QAM 09/15/22 10/07/24 History tamsulosin 0.4 mg capsule 0.4 mg PO HS #90 caps 12/19/22 10/07/24 Rx betamethasone dipropionate 0.05 % 1 applic topical DAILY PRN skin 12/20/22 10/07/24 Rx topical cream irritation #45 grams atorvastatin 40 mg tablet 40 mg PO QAM 09/19/23 10/07/24 History spironolactone 25 mg tablet 25 mg PO QAM 11/29/23 10/07/24 History potassium chloride 10 mEq 10 meq PO QAM 03/18/24 10/07/24 History tablet,extended release(part/cryst) amlodipine 2.5 mg tablet 2.5 mg PO QAM 09/23/24 10/07/24 History aspirin 81 mg capsule 81 mg PO QAM 09/23/24 10/07/24 History clopidogrel 75 mg tablet 75 mg PO QAM 09/23/24 10/07/24 History diclofenac sodium 1 % topical gel 2 g topical QID PRN Pain 09/23/24 10/07/24 History (Voltaren Arthritis Pain) metolazone 5 mg tablet 5 mg PO UD PRN Weight Gain 09/23/24 10/07/24 History zolpidem 6.25 mg tablet,extended 6.25 mg PO HS PRN Sleep 09/23/24 10/07/24 History release,multiphase (Siri CR) Patient History Medical History Steatosis, liver Hx of squamous cell carcinoma Pre-diabetes Restrictive lung disease Idiopathic neuropathy mild per pt, feet bilat Hypertension Hyperlipidemia Exertional shortness of breath Chronic and stable since 2020 Congestive heart failure EF 60-64% on 07/02/24 ECHO COPD (chronic obstructive pulmonary disease) controlled, stable per pt. Complex renal cyst Per ultrasound, annual surveillance being done Aortic stenosis S/p TAVR 01/2024 - had 7 second pause in HR during TAVR- was temporarily paced- follows with cardio- metoprolol has since been d/alireza- discussed possible pacemaker in future - Follows with [facility] cardio/Dr. Rosa Bilateral nephrolithiasis no recent issues Presence of Watchman left atrial appendage closure device 05/16/24, [facility]; dr. rees, [facility] Pulmonary hypertension mild per 05/2023 echo: PASP 46 mmHg Iron deficiency anemia no recent issues- no longer needs PO iron supplementation Cor pulmonale follows with [facility] pul and [facility] cardio CAD (coronary artery disease) mild non obstructive CAD per 2021 and 11/2023 cath per cardio records Mitral regurgitation Mild to moderate per 06/2024 ECHO Diaphragm paralysis - Bilateral diaphragm paralysis - Per records - possibly due to neuritis or neuropathy related to previous sepsis in 2020 - Follows with [facility], diagnosed with paralyzed diaphragm, pt states he uses a BIPAP at night History of COVID-19 11/2021- was asymptomatic Orthopnea - previous history (in the past patient had needed BiPAP-required semi- recumbent position for previous hernia repair)- patient states he can lay flat without significant issues as of PAT appt 10/02/24 Atrial fibrillation s/p Watchman's device 05/2024 Carotid artery stenosis <50% stenosis to bilateral ICAs per 09/2023 carotid doppler BPH (benign prostatic hyperplasia) Apnea, sleep BIPAP Surgical History S/P AVR 01/2024, [facility]; used TAVR procedure H/O umbilical hernia repair Open Repair Incarcerated Umbilical Hernia (09/19/22): MAC at [facility]-required semi-recumbent position per records S/P cystoscopy with ureteral stent placement 12/2021 Hx of cardiac cath 11/04/21 ([facility]) > mild, non-obstructive CAD. Moderate aortic stenosis based on invasive AV assessment (calculated KATHRYN 1.5cm2, MG 35mmhg)--Patient reports this was done while he was awake d/t respiratory concerns. Hx of prior ablation treatment L4-5, S1 S/P ureteral stent placement duplicate History of biopsy Penile excisional biopsy- showed squamous cell carcinoma History of tooth extraction History of vasectomy History of colonoscopy with polypectomy History of arthroscopic knee surgery left knee Family History Mother Breast cancer Hypertension Brother Accident caused by electric current Father COPD (chronic obstructive pulmonary disease) Stroke ?? Other No family history of adverse response to anesthesia Denies family history of Ovarian cancer Prostate cancer Myocardial infarction Lung cancer Colorectal cancer Social History Smoking Status: Former smoker Tobacco Type: Cigarettes Age Started Using Tobacco: 14; Age Quit Using Tobacco: 38; packs per day: 1.5; Smoking End Date: around 1988; Second Hand Exposure: Yes (hx as child); Do You Dip or Chew Tobacco: No; Tobacco Cessation Education Requested by Patient: No Hx Alcohol Use: Yes Alcohol type: beer, wine and hard liquor Alcohol type Comment: 1-2 drinks weekly, "if that" Hx Substance Use: No Preferred Language: Danish Communication Ability: Effective Visual Impairment: No Limitations Hearing Ability: Normal Outside Sales Engineer Required: No Beliefs That Will Affect Care: None marital status: Life Partner Current Living Situation: Significant Other current occupational status: retired How many Children do You have: 1 Other Information That Helps Us Care for You: No other: S/O able to assist as needed with care. Feels Safe at Home: Yes Safety Concerns: Feels Safe At This Time Childhood Exposure to Second-Hand Smoke: Yes Diet: regular caffeine: Yes (1 cup of coffee daily ) Dental Care, Regularly: Yes Physical Activity Frequency: 3-4 Times per Week Physical Activity Frequency Comment: walks Seatbelt Use: always Sunscreen Use: No Assistive Devices: BiPap and Glasses Review of Systems Review of Systems: All systems reviewed & are unremarkable except as noted in Subjective Physical Exam Physical Exam: General: awake, alert, NAD HEENT: no scleral icterus, moist oral mucosa Neck: supple, trachea midline Heart: irregular Lungs: CTA bilaterally Abdomen: soft, NT, +BS Extremities: distal pulses intact and equal, no pedal edema Skin: warm, dry, no jaundice Neurologic: moving all extremities, sensation intact bilateral LE, no confusion or dysarthria. Results & Data Results & Data Vital Signs (Past 12 Hours) Vital Signs Temp Pulse Pulse Pulse Resp BP BP 10/07/24 17:01 61 10/07/24 16:37 36.8 C 63 16 116/74 10/07/24 16:18 10/07/24 16:07 36.6 C 71 16 122/80 10/07/24 15:40 62 15 113/71 10/07/24 15:25 60 14 122/81 10/07/24 15:15 64 19 127/87 10/07/24 15:05 36.4 C L 60 13 121/75 10/07/24 14:55 56 L 17 109/78 10/07/24 14:45 68 21 120/80 10/07/24 14:35 63 15 134/80 10/07/24 09:26 36.5 C 73 20 152/93 H Pulse Ox O2 Del Method O2 Flow Rate 10/07/24 17:01 10/07/24 16:37 90 Room Air 10/07/24 16:18 Room Air 10/07/24 16:07 92 Room Air 10/07/24 15:40 90 Room Air 10/07/24 15:25 93 Room Air 10/07/24 15:15 95 Room Air 10/07/24 15:05 94 Room Air 10/07/24 14:55 94 Oxymask 3 10/07/24 14:45 93 Oxymask 6 10/07/24 14:35 94 Oxymask 6 10/07/24 09:26 96 Room Air Medications Administered Ketorolac Tromethamine (Ketorolac Tromethamine 15 Mg/Ml Vial) 15 mg IV Q6H CLAUDIA Stop: 10/08/24 10:16 Last Admin: 10/07/24 16:38 Dose: 15 mg Documented By: LND Discontinued Medications Acetaminophen (Acetaminophen 500 Mg Tab) 1,000 mg PO PREOP CLAUDIA Stop: 10/07/24 18:00 Last Admin: 10/07/24 09:27 Dose: 1,000 mg Documented By: TDM Dexamethasone Sodium Phosphate (DexamethasonePf 10 Mg/Ml Vial) 10 mg IV PREOP CLAUDIA Stop: 10/07/24 18:00 Last Admin: 10/07/24 09:27 Dose: 10 mg Documented By: TDM Famotidine (Famotidine 20 Mg Tab) 20 mg PO PREOP CLAUDIA Stop: 10/07/24 18:00 Last Admin: 10/07/24 09:28 Dose: 20 mg Documented By: TDM Gabapentin (Gabapentin 300 Mg Cap) 300 mg PO PREOP CLAUDIA Stop: 10/07/24 18:00 Last Admin: 10/07/24 09:28 Dose: 300 mg Documented By: TDM Lactated Ringer's (Lr) 1,000 mls @ 15 mls/hr IV .Q24H CLAUDIA Stop: 11/06/24 05:59 Last Infusion: 10/07/24 12:43 Dose: Infused Documented By: Admin: 10/07/24 10:00 Dose: 15 mls/hr Documented By: TDM Lactated Ringer's (Lr) 1,000 mls @ 60 mls/hr IV .[id number] [facility] Stop: 10/07/24 22:39 Last Admin: 10/07/24 09:28 Dose: Not Given Documented By: TDM Cefazolin Sodium (Ancef 3000mg) 3,000 mg in 72.5 mls @ 130 mls/hr IV PREOP [facility]; Protocol Stop: 10/07/24 18:00 Last Admin: 10/07/24 16:12 Dose: Not Given Documented By: LND Ropivacaine 246 mg/ Ketorolac Tromethamine 30 mg/Epinephrine HCl 0.5 mg/ Sodium Chloride 100.7 mls @ 0 mls/hr INFIL TODAY@0600 [facility]; Protocol Stop: 10/07/24 16:00 Last Admin: 10/07/24 13:31 Dose: 100 mls/hr Documented By: AYLA Tranexamic Acid (Tranexamic Acid / 0.7% Nacl) 1,000 mg in 100 mls @ 600 mls/hr IV TODAY@0600 [facility] Stop: 10/07/24 18:00 Last Infusion: 10/07/24 16:11 Dose: Infused Documented By: Admin: 10/07/24 10:56 Dose: 600 mls/hr Documented By: TDM Tranexamic Acid (Tranexamic Acid / 0.7% Nacl) 1,000 mg in 100 mls @ 600 mls/hr IV TODAY@0600 CLAUDIA Stop: 10/07/24 18:00 Last Admin: 10/07/24 16:12 Dose: Not Given Documented By: MARIA M Miscellaneous (Ortho Joint Anesthetic ) Confirm Administered Dose 1 each .ROUTE .STK-MED ONE Stop: 10/07/24 10:46 Last Admin: 10/07/24 16:11 Dose: Not Given Documented By: MARIA M (1) Left knee DJD Osteoarthritis type: primary Qualified Code(s): M17.12 - Unilateral primary osteoarthritis, left knee
[2024-10-07] MEDS: oxyCODONE HCL IR 5 MG TAB (IMMEDIATE RELEASE) PO PRN (20:18)
[2024-10-07] MEDS: ceFAZolin 2000MG 2,000 MG/15 ML SYR IV SCH (20:19)
[2024-10-07] MEDS: TAMSULOSIN HCL 0.4 MG CAP PO SCH (20:20)
[2024-10-07] MEDS: SENNA 8.6 MG TAB PO SCH (20:21)
[2024-10-07] MEDS: DOCUSATE SODIUM 100 MG CAP PO SCH (20:21)
[2024-10-07] MEDS: ZOLPIDEM TARTRATE 5 MG TAB PO PRN (22:33)
[2024-10-08 06:29] LABS: Basophils # (auto) 0.02 K/uL (0.00-0.20); Basophils % (auto) 0.1 %; Hematocrit (blood only) 42.4 % (42.0-52.0); Immature Granulocytes % (auto) 0.6 %; Lymphocytes # (auto) 0.45 K/uL (1.20-3.40); Lymphocytes % (auto) 2.7 %; Mean Corpuscular Hemoglobin 30.4 pg (25.0-34.0); Monocytes # (auto) 1.41 K/uL (0.11-0.59); Monocytes % (auto) 8.3 %; Neutrophils # (auto) 14.93 K/uL (1.40-6.50); Neutrophils % (auto) 88.3 %; Platelet Count 183 K/uL (130-400); RDW Coefficient of Variation 13.7 % (11.5-14.5); RDW Standard Deviation 46.5 fL (36.4-46.3); Red Blood Count 4.61 M/uL (4.70-6.10); White Blood Count 16.91 K/ul (4.8-10.8)
[2024-10-08 06:44] LABS: Calcium 9.3 mg/dl (8.6-10.3); Creatinine Clr Calc Pharmacy 47.4 ml/min; Magnesium 2.1 mg/dl (1.7-2.4); Potassium 4.1 mmol/L (3.5-5.1)
[2024-10-08 07:40] VITALS: RESP 16; TEMP 97.7
--- NOTE | 2024-10-08 07:57 | Hospitalist Progress Note ---
<Statement entered by Rashawn Jason DO - 10/08/24 16:20> I have seen and examined the patient and have discussed the case with the advance practice provider. I have reviewed the advanced practitioner's documentation, and I agree with, and take responsibility for that plan of care. Patient was up and ambulating. Anticipating discharge home. Medically stable. Plan of care as outlined below I spent a total of 12 minutes coordinating, documenting, and providing care for this patient excluding time spent by another provider/QHP. Date of Service October 08, 2024 Assessment & Plan (1) Left knee DJD: (2) Status post left knee replacement: Plan: Josias De Los Santos is a 73y/o M with PMHx significant for permanent afib s/p Watchman in 05/2024, severe AVS s/p TAVR in 01/2024, CARRI on BiPAP, bilateral phrenic nerve diaphragmatic paralysis, pulmonary HTN, mild non-obstructive CAD, combined systolic + diastolic CHF, HTN, FORREST and other problems listed below who was referred to our medicine service for routine medical management after undergoing an elective L TKA performed by Dr. Espino on 10/07/24. Patient being observed inpatient due to history of bilateral phrenic nerve paralysis with decreased pulmonary function after anesthesia in the past. Labs stable this AM. Preoperative Hgb 15.9 and postoperative Hgb 14. Leukocytosis noted however this is likely 2/2 preoperative and postoperative steroid use as ordered by the primary service. Continue incentive spirometry, PT/OT when appropriate as per primary service. Continue to monitor H/H for acute blood loss anemia and transfuse blood products PRN. (3) CARRI (obstructive sleep apnea): Plan: Chronic, stable. Continue BiPAP HS - patient brought in his device from home to use. (4) Diaphragmatic paralysis: Plan: Saturating well on RA. Denies any SOB. Lungs clear to auscultation bilaterally on exam. Patient follows with pulmonary at [facility]. (5) Non-occlusive coronary artery disease: Plan: Chronic, stable. Denies any chest pain or other cardiac symptoms at present. Resume Plavix as soon as advised by primary service, continue aspirin uninterrupted. DVT Prophylaxis: SCDs/TEDs Code Status: FULL CODE PCP: Chino Leavitt DO Disposition: Discharge planning as per primary service. Thank you for this consultation. We will follow the patient with you during their hospital stay. You can reach a [facility]03 via [employer]. Patient seen in collaboration with Dr. Jason. Please see addendum. I spent a total of 35 minutes coordinating, documenting, and providing care for this patient excluding time spent in the performance of separately billed services or time spent by another provider/QHP. This included personally reviewing all current laboratories and imaging studies, medical reconciliation, outpatient chart review and discussion with specialists. This chart was completed in part utilizing Speech Voice Recognition Software. Grammatical errors, random word insertions, pronoun errors, and incomplete sentences are an occasional consequence of this system due to software limitations, ambient noise, and hardware issues. Any formal questions or concerns about the content, text, or information contained within the body of this dictation should be directly addressed to the provider for clarification. Admission and Anticipated Discharge Date Admission Date: October 07, 2024 Subjective Patient seen and evaluated at bedside this morning in room N287-2. Underwent L TKA yesterday performed by Dr. Espino. Patient was kept under observation overnight due to history of bilateral phrenic diaphragmatic paralysis with decreased pulmonary function after anesthesia in the past. Patient reports feeling well this morning. Mentions his pain is well-controlled and that he has been ambulating with a walker in the hallways with nursing assistance. Denies any SOB. Currently saturating well on RA. He is tolerating a diet without issue. Denies any nausea or abdominal pain. He is passing gas and had a BM already earlier this morning. Review of Systems Review of Systems: At least ten systems reviewed and negative, except as noted in the subjective section. Physical Exam Physical Exam: General: WD/WN, NAD, sitting up at side of bed, very pleasant, conversing appropriately. A+Ox3, euthymic affect. HEENT: Normocephalic, atraumatic. Conjunctivae normal. External ear and nose normal, oropharynx normal. Respiratory: Normal respiratory effort, lungs clear to auscultation, no wheeze/rales/rhonchi. No accessory muscle use. Cardiovascular: Regular rate, irregularly irregular rhythm, normal peripheral pulses, no BLE edema. Vessels: No JVD. Abdomen/GI: Normal bowel sounds, soft, nondistended, nontender to palpation in all quadrants. Extremities/Musculoskeletal: L knee surgical dressing C/D/I, distal NV status intact in BLE. Neurologic: No overt focal deficits, CN's II-XI not formally tested but appear grossly intact bilaterally. Results & Data Results & Data Vital Signs (Past 12 Hours) Vital Signs Temp Pulse Pulse Resp BP Pulse Ox O2 Del Method 10/08/24 07:39 36.5 C 71 16 111/64 91 Room Air 10/08/24 07:00 67 10/08/24 03:45 36.3 C L 65 20 144/92 H 92 Room Air 10/08/24 00:20 36.4 C L 76 20 137/77 97 Room Air 10/07/24 21:48 73 Laboratory Results Short CBC 10/08/24 Range/Units 05:56 WBC 16.91 H (4.8-10.8) K/ul Hgb 14.0 (14.0-18.0) g/dl Hct 42.4 (42.0-52.0) % Plt Count 183 (130-400) K/uL BMP 10/08/24 05:56 Sodium 136 Potassium 4.1 Chloride 98 Carbon Dioxide 30 BUN 46 H Creatinine 1.77 H Glucose 130 H Calcium 9.3 (1) Left knee DJD Osteoarthritis type: primary Qualified Code(s): M17.12 - Unilateral primary osteoarthritis, left knee
[2024-10-08] MEDS: dexAMETHasone 4 MG TAB PO SCH (08:05)
[2024-10-08] MEDS: SPIRONOLACTONE 25 MG TAB PO SCH (08:05)
[2024-10-08] MEDS: ASPIRIN 81 MG ECTAB PO SCH (08:06)
[2024-10-08] MEDS: MULTIVITAMIN TAB PO SCH (08:06)
[2024-10-08] MEDS: TORSEMIDE 20 MG TAB PO SCH (08:06)
[2024-10-08] MEDS: ATORVASTATIN 40 MG TAB PO SCH (08:07)
[2024-10-08] MEDS: amLODIPine BESYLATE 5 MG TAB PO SCH (08:07)
[2024-10-08] MEDS: CLOPIDOGREL BISULFATE 75 MG TAB PO SCH (08:07)
--- NOTE | 2024-10-08 10:12 | Orthopedic Progress Note ---
Date of Service October 08, 2024 Assessment & Plan (1) Status post left knee replacement: Assessment: Status post left total knee replacement. Plan: Overall, he is doing quite well today with good pain control left knee. He will do physical therapy later this morning work on ambulation and range of motion exercises. He was restarted on his aspirin and Plavix for DVT prophylaxis. He can be discharged home later this morning pending formal physical therapy and hospitalist evaluation and recommendations. Dressings can be changed after physical therapy prior to discharge. Prescriptions were sent to his pharmacy and he understands all instructions. He will follow-up with orthopedics in 2 weeks for postoperative management. He verbalized understanding agrees with this plan. Subjective . Josias was seen evaluated this morning resting comfortably no apparent distress. He notes his pain is well-controlled to the left knee. He has been up and out of bed with no significant issues. He has yet to work physical therapy this morning. He denies any concerns with surgical incision site. Denies any active bleeding, discharge, or signs of infection. He denies any other concerns today. Review of Systems All systems reviewed & are unremarkable except as noted in HPI & below. Physical Exam . On physical examination of the left leg, his dressings are clean, dry, and intact with no signs of active bleeding, discharge, or signs of infection. Tenderness to palpation adjacent to the surgical site. Limited range of motion and strength secondary to postoperative weakness and soreness. Calf soft nontender to palpation. Negative Homans' sign. Intact plantarflexion dorsiflexion of left ankle. +2 DP and PT pulse. Less than 2-second capillary refill. Normal sensation. Vascular intact. Results & Data Results & Data Laboratory Results . Diagnostic Findings . Knee X-Ray 10/07/24 14:30 XR knee LT 1 or 2V routine CLINICAL HISTORY: Surgical Post Op COMPARISON: 07/08/2020 FINDINGS: Interval left knee prosthesis shows no hardware complication. There is expected soft tissue gas. Skin lety are present. IMPRESSION: Unremarkable postoperative exam. ACT 112: Negative or not required by law. Electronically signed by: Aroldo Sheth M.D. 10/07/2024 2:43 PM PG Care Time/CCT Total # of Minutes Spent Total Time Spent with Patient: Total time spent is greater than 50% in coordination of care (as documented) at patient's floor/unit and/or counseling patient: Coding Level of Care Code 48507 Post Operative Follow-Up Diagnoses Status post left knee replacement Z96.652
--- NOTE | 2024-10-08 10:14 | Discharge Summary ---
Date of Service October 08, 2024 Principal Diagnosis Same as "Discharge Diagnosis" noted below under Discharge Instructions. Discharge Exam . On physical examination of the left leg, his dressings are clean, dry, and intact with no signs of active bleeding, discharge, or signs of infection. Tenderness to palpation adjacent to the surgical site. Limited range of motion and strength secondary to postoperative weakness and soreness. Calf soft nontender to palpation. Negative Homans' sign. Intact plantarflexion dorsiflexion of left ankle. +2 DP and PT pulse. Less than 2-second capillary refill. Normal sensation. Vascular intact. Discharge Data Consultations 10/07/24 15:39 Consult Hospitalist Routine Procedures Performed Operation Date: 10/07/24 11:00 Actual Procedures p Left Total Knee Arthroplasty(Left) - Johnny Espino DO Ordered Studies 10/07/24 05:00 US - OR guided needle placemen Routine Hospital Course (1) Status post left knee replacement: On October 07, 2024 Josias arrived at [facility] and underwent a left total knee arthroplasty performed by Dr. Espino with no complications. He had a general anesthetic. Postoperatively, he was restarted on his aspirin and Plavix for DVT prophylaxis and transferred to the general orthopedic floor in stable condition. His hospital course was uneventful. On postoperative day #1, his vital signs were stable and his pain was well-controlled. He participated well with physical therapy working on ambulation and range of motion exercises. He was then discharged home in stable condition. He is going to follow-up with orthopedics in 2 weeks for continued postoperative management. PG Care Time/CCT Total # of Minutes Spent Total Time Spent with Patient: Total time spent is greater than 50% in coordination of care (as documented) at patient's floor/unit and/or counseling patient: Discharge Plan Discharge Items Patient Disposition: Home - Home Health Services Reason For Visit: POST OP Discharge Diagnosis: Same Activity: Per Instructions section Non-emergency contact: Surgeon Call non-emergency contact if: your temperature is above 101.5, your wound has increased redness, your wound has increased drainage and your wound pain has increased Follow-up/Referrals: Chino Leavitt DO [Primary Care Provider] - ( Date & Time 10/29/2024 3:00 PM Provider: Chino Leavitt DO [facility] [address], [place] ) Diet: Regular Addtl Attending Provider Instructions: Activity and Therapy Recommendations: * If you are using [facility] then therapy will be provided at your home until they feel you have accomplished all of your goals. * If you are using [facility] then Physical Therapy will be provided until they feel you are ready to start Outpatient Physical Therapy. * If you are not using home therapy then Outpatient Physical Therapy should start about 3-5 days from your day of surgery. Therapy will last about 6-10 weeks * It is important not to put a pillow under your knee when you are relaxing or sleeping. It is just as important to make sure you are getting your knee perfectly straight as it is to regain your knee bend. * You were shown a series of exercises in the hospital. Do these exercises three times each day including the exercises you were shown in physical therapy. * Get up and walk several times each day. For the first four weeks, try not to stand or walk for more than one hour at a time. If you do stand or walk for more than one hour, you will not hurt anything, but your leg will likely swell. * As you feel comfortable, you may change from the walker or crutches to a cane and then to independent walking. Medications: * Narcotic You will likely be sent home from the hospital with a prescription for the narcotic pain medication that worked best throughout your stay. * Cefadroxil -take the antibiotic twice a day for 10 days to help prevent infection. * Continue your aspirin and Plavix as prescribed. * Other medications may be prescribed for specific circumstances. If you have any questions, please call the office at . * Resume previous home medications unless otherwise instructed TEDs/Elastic Stockings: The white elastic stockings help limit swelling and prevent blood clots from forming in your legs.~ The more you wear them, the more they work. Wear them for six weeks. Dressing Care: The dressing can be changed after physical therapy on postop day #1. Daily dry dressing changes for a few days, especially if the incision is still draining some. If the incision is not draining then you may leave the lety open to air. If there is a little bit of drainage or if the lety are getting stuck on your clothing then cover the incision with a dry dressing. The lety will be removed at your 2 week follow-up appointment. Showering: You may shower 5 days from the day of surgery as long as the incision is no longer draining. You may shower with the lety exposed. Let soapy water run over the lety and pat them dry. Do not scrub or soak the incision. Diet: You may resume your previous diet. Things To Watch For: * Drainage from the incision site that occurs more than one week after your surgery. * Increased redness at the incision site. * Fever above 102 degrees Fahrenheit. * Unusual chest pain or shortness of breath. * Call [facility] at with any of the above problems Follow-Up Visit: Follow-up with Dr. Espino's office 2-3 weeks after your day of surgery. We will remove your lety and answer any questions. If you have any additional questions or concerns, Dr Espino is usually in the office at the same time and will be available An appointment was probably scheduled when you signed-up for surgery in the office. If you have any questions call Office Instructions: More detailed instructions as well as Frequently Asked Questions were provided in a folder by our office when you signed-up for surgery. Please review these instructions when you get home. If you have any further questions or concerns, please feel free to call the office at [phone] Pending Studies at Discharge: No Stand-Alone Forms: My [facility], Smoking Cessation Medications and DC Order Prescriptions: New cefadroxil 500 mg capsule 500 mg PO BID 10 Days Qty: 20 0RF oxycodone 5 mg tablet 5 mg PO Q6H PRN (Reason: pain) Qty: 30 0RF Continued tamsulosin 0.4 mg capsule 0.4 mg PO HS Qty: 90 3RF Rx Instructions: TAKE 1 CAPSULE AT BEDTIME Centrum Silver 0.4-300-250 mg-mcg-mcg tablet 1 tab PO QAM ojdsxzplagn-B1-Mlnqbgcyx serr [Osteo Bi-Flex (5-Loxin)] 1,500-400-100 mg-unit-mg tablet 1 tab PO QAM betamethasone dipropionate 0.05 % cream 1 applic TOP DAILY PRN (Reason: skin irritation) Qty: 45 3RF omega 0-uyl-fjz-fish oil [Fish Oil] 60-90-500 mg capsule 1 cap PO UD Rx Instructions: mon/mon/monday, once daily spironolactone 25 mg tablet 25 mg PO QAM torsemide 20 mg Tablet 40 mg PO QAM ascorbic acid (vitamin C) [Vitamin C] 250 mg Tablet 250 mg PO UD Rx Instructions: mon/mon/mon, once daily atorvastatin 40 mg tablet 40 mg PO QAM ibuprofen 200 mg Tablet 400 mg PO Q6H PRN (Reason: FEVER/PAIN) Mitoq 1 tab PO QAM Rx Instructions: supplement potassium chloride 10 mEq tablet,ER particles/crystals 10 meq PO QAM metolazone 5 mg tablet 5 mg PO UD PRN (Reason: Weight Gain) amlodipine 2.5 mg tablet 2.5 mg PO QAM clopidogrel 75 mg Tablet 75 mg PO QAM zolpidem [Ambien CR] 6.25 mg tablet,ext release multiphase 6.25 mg PO HS PRN (Reason: Sleep) diclofenac sodium [Voltaren Arthritis Pain] 1 % Gel 2 g TOPICAL QID PRN (Reason: Pain) Rx Instructions: apply to single elbow, wrist or hand; for hand includes palm/fingers/back of hand aspirin 81 mg Capsule 81 mg PO QAM Admission Data Admit Date/Time: 10/07/24 14:30 Attending Provider: Johnny Espino Admit Provider: Johnny Espino Primary Care Provider: Chino Leavitt Other Providers: Shalini Ramirez; Rashawn Jason Other Interventions: Discharge Summary Assessment (RN) Last Done: 10/08/24 09:10
[2024-10-08 12:07] VITALS: BP 146/73; PULSE 69; O2SAT 93
== END 2024-10-08 13:12 | disposition home health service (06) ==
LOC: ASU 08:52 → 2N 08:52

== ENCOUNTER 2025-05-12 11:06 | Observation (INO) ==
--- NOTE | 2025-05-06 11:00 | Anesthesiology Consultation ---
Date of Service May 06, 2025 Assessment & Plan (1) Encounter for pre-operative examination: Plan - s/p right AUBREE 02/14/25 SAB L3-L4 1 attempt. - s/p left TKA 10/07/24 SAB with conversion to GA due to delay in surgeon's schedule per 10/07/24 anesthesiologist notation. "Attempted insertion of i-gel LMA5, however unable to insert beyond oral cavity. Upon removal of LMA, eladia blood noted in back of oral cavity. Suctioned, performed bag mask ventilation without difficulty, and proceeded with intubation using MAC 4 and 7.0 ETT. Atraumatic x1 attempt. Monarch inserted thereafter to inspect for source of bleeding. No active bleeding or eladia trauma noted at this time." - cardiology office visit 09/05/24 [facility]: "...feeling well. No complaints or concerns...metoprolol previously discontinued due to bradycardia/pauses, chronically in atrial fibrillation, asymptomatic, status post Watchman implantation. Seven day Zio monitor to be obtained at next evaluation. Possible future need for permanent pacemaker implantation discussed. No overt cardiac contraindications to future elective left knee replacement. Recommend uninterrupted continuation of aspirin 81 mg/day and amlodipne. Okay to hold clopidogrel 5 to 7 days prior to procedure..." - Outpatient joint assessment: Patient is currently scheduled for inpatient pathway. If re-evaluated and patient/surgeon requests outpatient pathway, patient is not a candidate for outpatient joint program. - Per fixed wing aircraft flight mechanic on 05/06/25: No known infectious disease contacts, current infectious disease symptoms in past 10 days or COVID positive test result in the past 30 days. Chart Review Chart Review: Acceptable Risk for Surgery and Patient NOT seen in Pre Admission Testing History Surgery Operation Date: 05/12/25 09:00 Proposed Procedures p Left Anterior Total Hip Arthroplasty - Johnny Espino, Height/Weight Height: 5 ft 9 in Weight: 120.202 kg Allergies Allergy/AdvReac Type Severity Reaction Status Date / Time No Known Allergies Allergy Unknown Verified 05/06/25 10:07 Medications Home Medications Medication Instructions Recorded Confirmed Last Taken glucosamine NQl-N3-Nnetvulcd 1 tab PO Q OTHER DAY 02/19/19 05/06/25 10 Days Ago ellis 1,500 mg-400 unit-100 mg ~02/04/25 tablet (Osteo Bi-Flex (5-Loxin)) pfkeffsm-wil-aakfu acid 0.4 1 tab PO QAM 02/19/19 05/06/25 10 Days Ago mg-lycopene 300 mcg-lutein 250 mcg ~02/04/25 tablet (Centrum Silver) ibuprofen 200 mg tablet 400 mg PO Q6H PRN Fever/pain 08/31/21 05/06/25 02/13/25 10:00 Mitoq 1 tab PO QAM 11/30/21 05/06/25 10 Days Ago ~02/04/25 omega 0-hqt-cmq-fish oil 60 mg-90 1 cap PO UD 02/24/22 05/06/25 10 Days Ago mg-500 mg capsule (Fish Oil) ~02/04/25 torsemide 20 mg tablet 40 mg PO QAM 09/15/22 05/06/25 02/13/25 09:00 tamsulosin 0.4 mg capsule 0.4 mg PO HS #90 caps 12/19/22 05/06/25 02/13/25 22:00 betamethasone dipropionate 0.05 % 1 applic topical DAILY PRN skin 12/20/22 05/06/25 Unknown topical cream irritation #45 grams atorvastatin 40 mg tablet 40 mg PO QAM 09/19/23 05/06/25 02/14/25 03:00 spironolactone 25 mg tablet 25 mg PO QAM 11/29/23 05/06/25 02/13/25 10:00 potassium chloride 10 mEq 10 meq PO QAM 03/18/24 05/06/25 02/13/25 10:00 tablet,extended release(part/cryst) amlodipine 2.5 mg tablet 2.5 mg PO QAM 09/23/24 05/06/25 02/14/25 03:00 diclofenac sodium 1 % topical gel 2 g topical QID PRN Pain 09/23/24 05/06/25 02/13/25 09:00 (Voltaren Arthritis Pain) metolazone 5 mg tablet 5 mg PO UD PRN Weight Gain 09/23/24 05/06/25 10 Days Ago ~02/04/25 zolpidem 6.25 mg tablet,extended 6.25 mg PO HS PRN Sleep 09/23/24 05/06/25 2 Weeks Ago release,multiphase (Ambien CR) ~01/31/25 albuterol sulfate 90 mcg/actuation 90 mcg inhalation DAILY PRN 02/05/25 05/06/25 2 Days Ago aerosol inhaler (Ventolin HFA) Shortness Of Breath Or Wheezing ~02/12/25 acetaminophen 500 mg tablet 1,000 mg PO Q6H PRN Pain 02/14/25 05/06/25 02/13/25 16:00 soxuleb-lmdkvotpzijbh-ltypukod 250 1 tab PO BID 05/06/25 05/06/25 Unknown mg-250 mg-65 mg tablet (Excedrin Extra Strength) Past Medical History Medical History Acquired buried penis Adverse effect of anesthesia "Sore throat for 2 weeks after 10/07/24 procedure, not sure if they intubated me." as per patient Aortic stenosis S/p TAVR 01/2024 - had 7 second pause in HR during TAVR- was temporarily paced- follows with cardio- metoprolol has since been d/alireza- discussed possible pacemaker in future - Follows with kaylee Desir, sleep BIPAP Atrial fibrillation s/p Watchman's device 05/2024 Bilateral nephrolithiasis no recent issues BPH (benign prostatic hyperplasia) CAD (coronary artery disease) mild non obstructive CAD per 2021 and 11/2023 cath per cardio records Carotid artery stenosis <50% stenosis to bilateral ICAs per 09/2023 carotid doppler Complex renal cyst Per ultrasound, annual surveillance being done Congestive heart failure EF 60-64% on 07/02/24 ECHO COPD (chronic obstructive pulmonary disease) controlled, stable per pt. 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 - Per records - possibly due to neuritis or neuropathy related to previous sepsis in 2020 - Follows with [facility] yearly, diagnosed with paralyzed diaphragm, pt states he uses a BIPAP at night Exertional shortness of breath (2020) Chronic and stable since 2020 Facet arthritis of lumbar region History of COVID-19 11/2021- was asymptomatic History of transcatheter aortic valve replacement (TAVR) (01/2024) [facility] Hx of colonic polyps Hx of renal calculi Hx of sepsis (2020) Hx of squamous cell carcinoma Hyperlipidemia Hypertension Idiopathic neuropathy mild per pt, feet bilat Iron deficiency anemia no recent issues- no longer needs PO iron supplementation Mitral regurgitation Mild to moderate per 06/2024 ECHO Orthopnea - previous history (in the past patient had needed BiPAP-required semi- recumbent position for previous hernia repair)- patient states he can lay flat without significant issues as of PAT appt 10/02/24 Osteoarthritis of left hip Pre-diabetes no meds Presence of Watchman left atrial appendage closure device 05/16/24, [facility]; dr. rees, [facility] Pulmonary hypertension mild per 05/2023 echo: PASP 46 mmHg Restrictive lung disease [facility] Steatosis, liver Past Family History Family History Mother Breast cancer Hypertension Brother Accident caused by electric current Father COPD (chronic obstructive pulmonary disease) Stroke ?? Other No family history of adverse response to anesthesia Denies family history of Ovarian cancer Prostate cancer Myocardial infarction Lung cancer Colorectal cancer Past Surgical History Surgical History H/O umbilical hernia repair (09/19/22) Open Repair Incarcerated Umbilical Hernia (09/19/22): MAC at [facility]-required semi-recumbent position per records History of arthroscopic knee surgery left knee History of biopsy Penile excisional biopsy- showed squamous cell carcinoma History of tooth extraction History of total left knee replacement (TKR) (10/2024) History of vasectomy Hx of cardiac cath (11/2021) 11/04/21 ([facility]) > mild, non-obstructive CAD. Moderate aortic stenosis based on invasive AV assessment (calculated KATHRYN 1.5cm2, MG 35mmhg)--Patient reports this was done while he was awake d/t respiratory concerns. Hx of colonoscopy with polypectomy Hx of prior ablation treatment L4-5, S1 S/P cystoscopy with ureteral stent placement (12/2021) 12/2021 Status post right hip replacement (02/14/25) Social History Smoking Status: Former smoker tobacco type: cigarettes Do You Dip or Chew Tobacco: No Smoking End Date: 04/1989 Hx Alcohol Use: Yes Alcohol type: beer alcohol intake frequency: a few times a week Hx Substance Use: No substance use type: does not use Lab Results Anesthesia Preop Results Results Anesthesia Widget: WBC 7.95 K/ul (4.8-10.8) 04/08/25 Hgb 14.4 g/dl (14.0-18.0) 04/08/25 Hct 44.2 % (42.0-52.0) 04/08/25 Plt 185 K/uL (130-400) 04/08/25 Na 141 mmol/L (136-145) 04/08/25 K 4.1 mmol/L (3.5-5.1) 04/08/25 Cl 105 mmol/L (98-107) 04/08/25 CO2 29 mmol/L (21-32) 04/08/25 BUN 33 mg/dl (6-23) H 04/08/25 Creat 1.27 mg/dl (0.6-1.4) 04/08/25 Glucose Level 98 mg/dl (70-99(Fasting)) 04/08/25 PT 11.3 Seconds (9.0-12.0) 04/08/25 PTT 27 Seconds (21-31) 04/08/25 INR 1.0 (0.9-1.1) 04/08/25 Blood Type A Positive 04/08/25 Antibody Screen NEGATIVE 04/08/25 Testing Electrocardiogram Date: 10/02/24 Afib, rate [address] and T wave abnormality Chest X-Ray Date: 10/02/24 No acute findings. Echocardiogram Date: 07/02/24 Afib during examination Left atrial appendage closure device was identified. #31 mm Watchman device- adequate closure with minimal to no flow around the device No VANDANA mass or thrombus EF 60-64% S/p TAVR with Robert type prosthetic valve. No significant aortic valve prosthesis regurgitation, no aortic stenosis Mild to moderate mitral regurgitation Moderate tricuspid regurgitation Proximal ascending thoracic aorta is mildly enlarged Mild pulmonary regurgitation Stress Test Date: 11/08/23 Nondiagnostic due to failure to reach 85% age predicted heart rate (subsequent cardiac cath with non-obstructive CAD) Cardiac Catheterization Date: 11/28/23 Distal LMCA 20% stenosis Mild, non-obstructive CAD with 20% distal LMCA stenosis and luminal irregularities in LAD. Cx and dominant RCA are angiographically normal Moderate aortic stenosis (now s/p TAVR) Other Testing Carotid doppler 10/02/23 Less than 50% stenosis ICAs bilat
[~2025-05-12 11:06] MED LIST changes: -ATROPINE SULFATE 0.1 MG/ML 10ML SYR IV PRN; -BUPIVACAINE 0.25% PF 30 ML VIAL ONE; -BUPIVACAINE 0.5 % 5 MG/1 ML PF 10ML VIAL ONE; -DexMEDEtomidine HCL IV 100 MCG/ML VIAL IV ONE; +GLYCOPYRROLATE 0.2 MG/ML VIAL ONE; +KETAMINE HCL 10MG/ML SYR ONE; +LIDOCAINE 2% 2 ML VIAL/AMP(20MG/ML) INFIL ONE; +MIDAZOLAM HCL 1 MG/ML 2ML VIAL ONE; -ONDANSETRON INJ 2 MG/ML 2 ML VIAL IV PRN; +ONDANSETRON INJ 2 MG/ML 2 ML VIAL ONE; +PROPOFOL IV EMULSION 10 MG/ML 20 ML VIAL IV ONE; +ROPIVACAINE 0.5% 5 MG/ML 30 ML VIAL ONE; -ePHEDrine sulfate 50 MG/ML AMP IV PRN; -fentaNYL citrate PF 100 MCG/2 ML VIAL IV PRN
[2025-05-12] MEDS: LR 500ML BOLUS, THEN 15ML/HR IV SCH (11:36)
[2025-05-12] MEDS: ACETAMINOPHEN 500 MG TAB PO SCH ×2 (11:37→17:05)
[2025-05-12] MEDS: LR 60ML/HR IV SCH (11:37)
[2025-05-12] MEDS: dexAMETHasone**PF** 10 MG/ML VIAL IV SCH (11:37)
[2025-05-12] MEDS: GABAPENTIN 300 MG CAP PO SCH (11:37)
[2025-05-12] MEDS: FAMOTIDINE 20 MG TAB PO SCH (11:37)
--- NOTE | 2025-05-12 11:41 | History & Physical Bridge Note ---
Date of Service May 12, 2025 History & Physical Bridge Note I have examined the patient, reviewed the History & Physical and in the interval since the performance of the History & Physical I have noted the following changes of clinical significance: no changes noted
--- NOTE | 2025-05-12 11:50 | History & Physical Report ---
Date of Service May 12, 2025 Assessment & Plan (1) Osteoarthritis of left hip: We will proceed with a left anterior total of arthroplasty. Postoperatively, he will be started on aspirin for DVT prophylaxis and kept overnight in the hospital for postop medical management. He plans to use energy physical therapy at discharge. History of Present Illness Chief Complaint: Osteoarthritis of left hip. Primary Care Provider: Chino Leavitt DO Ferrara is a pleasant 74-year-old male who has been Chronic increasing left hip and groin pain. I did a right hip replacement on him in February and he did well with that. Unfortunately still with left hip pain. X-rays and clinical examination and been diagnostic for osteoarthritis of the left hip. After failed conservative treatment, he has elected to proceed with a left anterior total of arthroplasty.. Allergies Allergy/AdvReac Type Severity Reaction Status Date / Time No Known Allergies Allergy Unknown Verified 05/12/25 11:15 Home Medications Medication Instructions Recorded Confirmed Type glucosamine [id number] 1 tab PO Q OTHER DAY 02/19/19 05/12/25 History ellis 1,500 mg-400 unit-100 mg tablet (Osteo Bi-Flex (5-Loxin)) rbnddtxp-ovs-jlayq acid 0.4 1 tab PO QAM 02/19/19 05/12/25 History mg-lycopene 300 mcg-lutein 250 mcg tablet (Centrum Silver) ibuprofen 200 mg tablet 400 mg PO Q6H PRN Fever/pain 08/31/21 05/12/25 History Mitoq 1 tab PO QAM 11/30/21 05/12/25 History omega 2-xxf-sxh-fish oil 60 mg-90 1 cap PO UD 02/24/22 05/12/25 History mg-500 mg capsule (Fish Oil) torsemide 20 mg tablet 40 mg PO QAM 09/15/22 05/12/25 History tamsulosin 0.4 mg capsule 0.4 mg PO HS #90 caps 12/19/22 05/12/25 Rx betamethasone dipropionate 0.05 % 1 applic topical DAILY PRN skin 12/20/22 05/12/25 Rx topical cream irritation #45 grams atorvastatin 40 mg tablet 40 mg PO QAM 09/19/23 05/12/25 History spironolactone 25 mg tablet 25 mg PO QAM 11/29/23 05/12/25 History potassium chloride 10 mEq 10 meq PO QAM 03/18/24 05/12/25 History tablet,extended release(part/cryst) amlodipine 2.5 mg tablet 2.5 mg PO QAM 09/23/24 05/12/25 History diclofenac sodium 1 % topical gel 2 g topical QID PRN Pain 09/23/24 05/12/25 History (Voltaren Arthritis Pain) metolazone 5 mg tablet 5 mg PO UD PRN Weight Gain 09/23/24 05/12/25 History zolpidem 6.25 mg tablet,extended 6.25 mg PO HS PRN Sleep 09/23/24 05/12/25 Histo ry release,multiphase (Ambien CR) albuterol sulfate 90 mcg/actuation 90 mcg inhalation DAILY PRN 02/05/25 05/12/25 History aerosol inhaler (Ventolin HFA) Shortness Of Breath Or Wheezing acetaminophen 500 mg tablet 1,000 mg PO Q6H PRN Pain 02/14/25 05/12/25 History rrgyhfb-ctkjczzvnhvzz-nowtcqlw 250 1 tab PO BID 05/06/25 05/12/25 History mg-250 mg-65 mg tablet (Excedrin Extra Strength) Past Med/Surg History Problem List Osteoarthritis of left hip Acquired buried penis Hip arthritis Lymphopenia Bilateral nephrolithiasis Elevated lipoprotein(a) Diaphragmatic paralysis Encounter for pre-operative examination Umbilical hernia Metabolic alkalosis Restrictive lung disease Muscle weakness (HFpEF) heart failure with preserved ejection fraction Anemia Non-occlusive coronary artery disease Weight loss Left ureteral stone Squamous cell carcinoma in situ (SCCIS) Early satiety Dysphagia Steatosis, liver Obesity Exertional shortness of breath COPD (chronic obstructive pulmonary disease) controlled, stable per pt Orthopnea Paroxysmal atrial fibrillation Dyspnea Hematuria Urinary symptom or sign Facet arthritis of lumbar region Pre-diabetes History of colon polyps Left knee DJD Idiopathic polyneuropathy mild per pt, feet bilat Hip pain, left Arthritis of knee, left Complex renal cyst Per ultrasound, annual surveillance being done Acute left lumbar radiculopathy CARRI (obstructive sleep apnea) Moderate left ventricular hypertrophy Hydrocele, left (Acute) Testicular swelling, left Benign localized prostatic hyperplasia with lower urinary tract symptoms (LUTS) Hyperlipidemia Hypertension controlled, stable per pt Irregular sleep-wake rhythm, nonorganic origin orthopnea Tubular adenoma of colon Medical History Osteoarthritis of left hip Facet arthritis of lumbar region Hx of renal calculi Acquired buried penis Hx of colonic polyps Hx of sepsis (2020) History of transcatheter aortic valve replacement (TAVR) (01/2024) [facility] [place] Adverse effect of anesthesia "Sore throat for 2 weeks after 10/07/24 procedure, not sure if they intubated me." as per patient Steatosis, liver Hx of squamous cell carcinoma Pre-diabetes no meds Restrictive lung disease [facility] Idiopathic neuropathy mild per pt, feet bilat Hypertension Hyperlipidemia Exertional shortness of breath (2020) Chronic and stable since 2020 Congestive heart failure EF 60-64% on 07/02/24 ECHO COPD (chronic obstructive pulmonary disease) controlled, stable per pt. Complex renal cyst Per ultrasound, annual surveillance being done Aortic stenosis S/p TAVR 01/2024 - had 7 second pause in HR during TAVR- was temporarily paced- follows with cardio- metoprolol has since been d/alireza- discussed possible pacemaker in future - Follows with [facility] Bilateral nephrolithiasis no recent issues Presence of Watchman left atrial appendage closure device 05/16/24, [facility] [place] dr[place] 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 - Per records - possibly due to neuritis or neuropathy related to previous sepsis in 2020 - Follows with [facility] yearly, diagnosed with paralyzed diaphragm, pt states he uses a BIPAP at night History of COVID-19 11/2021- was asymptomatic Orthopnea - previous history (in the past patient had needed BiPAP-required semi- recumbent position for previous hernia repair)- patient states he can lay flat without significant issues as of PAT appt 10/02/24 Atrial fibrillation s/p Watchman's device 05/2024 Carotid artery stenosis <50% stenosis to bilateral ICAs per 09/2023 carotid doppler BPH (benign prostatic hyperplasia) Apnea, sleep BIPAP Surgical History Status post right hip replacement (02/14/25) Hx of colonoscopy with polypectomy History of total left knee replacement (TKR) (10/2024) H/O umbilical hernia repair (09/19/22) Open Repair Incarcerated Umbilical Hernia (09/19/22): MAC at [facility]-required semi-recumbent position per records S/P cystoscopy with ureteral stent placement (12/2021) 12/2021 Hx of cardiac cath (11/2021) 11/04/21 ([facility]) > mild, non-obstructive CAD. Moderate aortic stenosis based on invasive AV assessment (calculated KATHRYN 1.5cm2, MG 35mmhg)--Patient reports this was done while he was awake d/t respiratory concerns. Hx of prior ablation treatment L4-5, S1 History of biopsy Penile excisional biopsy- showed squamous cell carcinoma History of tooth extraction History of vasectomy History of arthroscopic knee surgery left knee Family History Mother Breast cancer Hypertension Brother Accident caused by electric current Father COPD (chronic obstructive pulmonary disease) Stroke ?? Other No family history of adverse response to anesthesia Denies family history of Ovarian cancer Prostate cancer Myocardial infarction Lung cancer Colorectal cancer Social History Smoking Status: Former smoker Tobacco Type: Cigarettes Age Started Using Tobacco: 14; Age Quit Using Tobacco: 38; packs per day: 1.5; Smoking End Date: 04/1989; Second Hand Exposure: No; Do You Dip or Chew Tobacco: No; Tobacco Cessation Education Requested by Patient: No Hx Alcohol Use: Yes Alcohol type: beer Alcohol type Comment: 1-2 drinks weekly, "if that" Hx Substance Use: No Preferred Language: Kiswahili Communication Ability: Effective Visual Impairment: No Limitations Hearing Ability: Normal Liner Helper Required: No Beliefs That Will Affect Care: None marital status: Life Partner Current Living Situation: Significant Other current occupational status: retired How many Children do You have: 1 Other Information That Helps Us Care for You: No other: S/O able to assist as needed with care. Feels Safe at Home: Yes Safety Concerns: Feels Safe At This Time Childhood Exposure to Second-Hand Smoke: Yes Diet: regular caffeine: Yes (1 cup of coffee daily ) Dental Care, Regularly: Yes Physical Activity Frequency: 3-4 Times per Week Physical Activity Frequency Comment: walks Seatbelt Use: always Sunscreen Use: No Assistive Devices: BiPap and Glasses Review of Systems All systems reviewed & are unremarkable except as noted in HPI & below. Physical Exam On physical exam of the left hip, he has decreased range of motion. He is pain with internal and external rotation. All of his pain is located in the groin.. Constitutional WD/WN, vitals as above Eyes PERRL, conjunctivae normal, anicteric sclerae ENMT external ear and nose normal, oropharynx normal Neck trachea midline, no thyromegaly Respiratory normal respiratory effort Cardiovascular RRR, no murmur, no edema Gastrointestinal (Abdomen) normal bowel sounds, soft, nontender, no hepatosplenomegaly Psychiatric A+Ox3, euthymic affect Results & Data Results & Data Laboratory Results . Diagnostic Findings . PG Care Time/CCT Total # of Minutes Spent Total Time Spent with Patient: Total time spent is greater than 50% in coordination of care (as documented) at patient's floor/unit and/or counseling patient: Coding Level of Care Code None Diagnoses Osteoarthritis of left hip M16.12
[2025-05-12] MEDS ORDERED: HYDROmorphone INJ 1 MG/ML SYRINGE IV PRN (12:10)
[2025-05-12] MEDS ORDERED: ATROPINE SULFATE 0.1 MG/ML 10ML SYR IV PRN (12:10)
[2025-05-12] MEDS ORDERED: ONDANSETRON INJ 2 MG/ML 2 ML VIAL IV PRN ×2 (12:10→16:04)
[2025-05-12] MEDS: TRANEXAMIC ACID 1,000 MG **IV Pre-op IV SCH (12:28)
[2025-05-12] MEDS: ceFAZolin 3000MG 3,000 MG/72.5 ML BAG IV SCH (12:43)
[2025-05-12] MEDS ORDERED: PHENYLEPHRINE 100MCG/ML 5ML SYR ONE (13:13)
[2025-05-12] MEDS: ORTHO JOINT ANESTHETIC ONE (13:19)
[2025-05-12] MEDS: ROPIV 0.5% 246mg, Ketorolac 30mg, EPINEPHrine 0.5mg in NSS INFIL SCH (13:19)
[2025-05-12] MEDS ORDERED: DEXAMETHASONE SOD INJ 4 MG/ML VIAL ONE (13:27)
--- NOTE | 2025-05-12 13:47 | Operative Report ---
PG Post Operative Report Pre & Post Diagnosis Operation Date: 05/12/25 12:00 Pre-Op Diagnosis: Left Hip Arthritis Post-Op Diagnosis: Left Hip Arthritis I identified the patient and participated in the time-out.: Yes Procedure Operation Date: 05/12/25 12:00 Actual Procedures p Left Anterior Total Hip Arthroplasty(Left) - Johnny Espino DO Surgeon Johnny Espino DO Inside Sales Trainer Isatu Treviño PA-C Estimated Blood Loss 200 Findings Consistent with Post-Op Diagnosis Specimens Left femoral head Description of Procedure Implants used I used a ZimmerBiomet total hip arthroplasty system with a size 3 standard offset Z1 stem, a 32 mm G7 cup, an E1 polyethylene liner, a 36 mm ceramic head with a +7 neck. Josias arrived at the hospital for the above procedure. He was seen in the preoperative holding area and the operative extremity was identified and signed. He was given a spinal anesthetic, a preoperative antibiotic, and TXA. He was then taken back to the operating room and laid on the table in the supine position. He was given basic sedation. The operative leg was secured to a Puristst leg positioner. The hip was then prepped and draped in sterile fashion. A timeout was done and the patient and the operative extremity was properly identified. An anterior approach was used. Dissection was taken down through the fascia and the tensor muscle belly was retracted laterally and the rectus was retracted medially. The circumflex vessels were identified and ligated. The capsule was then incised and tagged for later repair. The femoral neck was then cut and the femoral head was removed. The acetabulum was exposed. Time was spent doing a complete circumferential labral release. Sequential reaming of the acetabulum up to a size 51 reamer was done. Final reamings were done under fluoroscopy to ensure appropriate version. A Biomet 52 mm G7 cup was then impacted into place. The E1 polyethylene liner was then snapped into place. Surrounding soft tissues were then injected with 100 cc of an orthopedic pain control cocktail. The proximal femur was then exposed. Sequential broaching up to a size 3 broach was done. Off that broach a size 36 head with a +7 neck was trialed. The hip was reduced and fluoroscopic images showed anatomic alignment of the implants in acceptable length. The broach was removed. The final size 3 standard offset Z1 stem was then impacted into place. A ceramic 36 mm head with a +7 neck was then impacted onto the stem and the hip was reduced. Final fluoroscopic images showed anatomic alignment of the hip. The capsule was then closed with #1 Vicryl suture. A dilute betadyne lavage was then done for 3 minutes. The joint was then irrigated with normal saline solution. The fascia was closed with #1 PDS suture. Skin was closed with 2-0 Vicryl, [place] zip line, and a Silverlon dressing. He was then transferred to a hospital bed and taken to the post anes thesia care unit in stable condition. He tolerated the procedure well. Isatu Treviño PA-C, was present for the entire procedure. He was critical for patient positioning, prepping, draping, retraction exposure, wound closure and application of sterile dressing. I attest to the content of the Intraoperative Record and any orders documented therein. Any exceptions are noted below.
--- NOTE | 2025-05-12 14:35 | XRay Report ---
XR hip 1V LT w pelvis CLINICAL HISTORY: IN PACU - Post Surgical COMPARISON: 02/14/2025 FINDINGS: Bilateral hip prostheses show no hardware complication. There is expected soft tissue gas on the left. IMPRESSION: Unremarkable postoperative exam. ACT 112: Negative or not required by law. Electronically signed by: Aroldo Sheth M.D. 05/12/2025 2:34 PM
--- NOTE | 2025-05-12 14:42 | Anesthesiology Progress Note ---
Date of Service May 12, 2025 Anesthesia Post Procedure Vital Signs Vital Signs: Temp Pulse Resp BP Pulse Ox O2 Del Method O2 Flow Rate 05/12/25 14:35 72 20 125/59 L 94 Oxymask 3 05/12/25 14:25 71 20 132/82 97 Oxymask 7 05/12/25 14:17 36.7 C 86 18 145/64 H 95 Oxymask 7 05/12/25 11:22 36.7 C 74 20 154/81 H 94 Room Air Transfer of Care Handoff Completed per policy Notes Mental Status: alert / awake / arousable and participated in evaluation Patient Amnestic to Procedure: Yes Nausea / Vomiting: adequately controlled Pain: adequately controlled Airway Patency, RR, SpO2: stable & adequate BP & HR: stable & adequate Hydration State: stable & adequate Anesthetic Complications: no major complications apparent and Pt Satisfied with anesthetic care
--- NOTE | 2025-05-12 15:02 | Fluoroscopy Report ---
FL hip LT 1V CLINICAL HISTORY: LT ANTERIOR AUBREE COMPARISON STUDY: 07/08/2020 FLUOROSCOPY TIME: 15 seconds FLUOROSCOPY IMAGES: 1 EXPOSURE DOSE: 3 mGy FINDINGS: Fluoroscopy was provided for left hip prosthesis. IMPRESSION: Intraoperative fluoroscopy. ACT 112: Negative or not required by law. Electronically signed by: Aroldo Sheth M.D. 05/12/2025 3:01 PM
[2025-05-12] MEDS ORDERED: MAGNESIUM HYDROXIDE SUSP 30 ML UDC PO PRN (16:04)
[2025-05-12] MEDS ORDERED: HYDROmorphone INJ 0.5 MG/0.5 ML SYR IV PRN (16:04)
[2025-05-12] MEDS ORDERED: METOCLOPRAMIDE HCL INJ 5 MG/ML 2 ML VIAL IV PRN (16:04)
[2025-05-12] MEDS ORDERED: NALOXONE HCL 0.4 MG/1 ML VIAL/CARP IV PRN (16:04)
[2025-05-12] MEDS ORDERED: ZOLPIDEM TARTRATE 5 MG TAB PO PRN (16:15)
[2025-05-12] MEDS: SODIUM CHLORIDE 0.9% 1,000 ML IV SCH (17:04)
[2025-05-12] MEDS: KETOROLAC TROMETHAMINE 15 MG/ML VIAL IV SCH (17:06)
[2025-05-12] MEDS: DOCUSATE SODIUM 100 MG CAP PO SCH (22:04)
[2025-05-12] MEDS: SENNA 8.6 MG TAB PO SCH (22:04)
[2025-05-12] MEDS: ASPIRIN 81 MG ECTAB PO SCH (22:05)
[2025-05-12] MEDS: TAMSULOSIN HCL 0.4 MG CAP PO SCH (22:05)
[2025-05-13 03:32] VITALS: O2SAT 94
[2025-05-13 07:16] VITALS: RESP 16; TEMP 97.9
[2025-05-13] MEDS: TORSEMIDE 20 MG TAB PO SCH (08:09)
[2025-05-13] MEDS: SPIRONOLACTONE 25 MG TAB PO SCH (08:09)
[2025-05-13] MEDS: MULTIVITAMIN TAB PO SCH (08:09)
--- NOTE | 2025-05-13 09:13 | Orthopedic Progress Note ---
Date of Service May 13, 2025 Assessment & Plan (1) S/P total left hip arthroplasty: * Continue Current Treatment * Disposition: home * Daily treatment: Physical Therapy/ Occupational Therapy per protocol * Weight bearing status: WBAT, no precautions * Continue to monitor for ABLA * Pain control * DVT prophylaxis, ASA * Office/hospital f/u 2 weeks for progress check and staple/suture removal * Plan for discharge today pending PT/OT clearance Subjective .Active Problems: S/p left AUBREE POD 1 74 y/o male s/p left AUBREE. Doing well overall, pain managed and improved function. Denies fever/chills, chest pain/SOB, nausea/vomiting. Otherwise no complaints. Review of Systems All systems reviewed & are unremarkable except as noted in HPI & below. Physical Exam . * General: Alert and oriented, no acute distress * Constitutional: well-developed, well-nourished. * Respiratory: Normal respiratory effort, no distress * Gastrointestinal: No tenderness to palpation, no rigidity or guarding. * Skin: No rash or lesion. * Neurologic: Grossly normal * Musculoskeletal: left hip surgical dressing CDI, not removed for exam. Otherwise no obvious deformity or overlying skin changes. Diffuse TTP proximal thigh and hip region. Otherwise no specific tenderness of distal thigh, lower leg, foot/ankle. AROM hip flexion intact. AROM foot/ankle intact. Sensation intact plantar/dorsal foot. Brisk capillary refill. Results & Data Results & Data Laboratory Results . Diagnostic Findings . Hip X-Ray 05/12/25 12:00 FL hip LT 1V CLINICAL HISTORY: LT ANTERIOR AUBREE COMPARISON STUDY: 07/08/2020 FLUOROSCOPY TIME: 15 seconds FLUOROSCOPY IMAGES: 1 EXPOSURE DOSE: 3 mGy FINDINGS: Fluoroscopy was provided for left hip prosthesis. IMPRESSION: Intraoperative fluoroscopy. ACT 112: Negative or not required by law. Electronically signed by: Aroldo Sheth M.D. 05/12/2025 3:01 PM Hip/Pelvis X-Ray 05/12/25 13:46 XR hip 1V LT w pelvis CLINICAL HISTORY: IN PACU - Post Surgical COMPARISON: 02/14/2025 FINDINGS: Bilateral hip prostheses show no hardware complication. There is expected soft tissue gas on the left. IMPRESSION: Unremarkable postoperative exam. ACT 112: Negative or not required by law. Electronically signed by: Aroldo Sheth M.D. 05/12/2025 2:34 PM PG Care Time/CCT Total # of Minutes Spent Total Time Spent with Patient: Total time spent is greater than 50% in coordination of care (as documented) at patient's floor/unit and/or counseling patient: Coding Level of Care Code 42924 Post Operative Follow-Up Diagnoses S/P total left hip arthroplasty Z96.642
[2025-05-13 09:51] VITALS: BP 120/58; PULSE 75
== END 2025-05-13 11:30 | disposition home or self-care (01) ==
LOC: 3E 11:06 → ASU 11:06